=== PATIENT | male | born 1965 | race American Indian/Alaskan Native ===

== ENCOUNTER 2019-03-05 22:12 | Inpatient (IN) | payer MEDICAID ==
[2019-03-05] MEDS ORDERED: SUBLIMAZE IV ONE (22:34)
[2019-03-05] MEDS ORDERED: ZOFRAN IV ONE (22:34)
[2019-03-05] MEDS ORDERED: NITRO-BID 2% TP ONE (22:34)
--- NOTE | 2019-03-05 22:40 | Emergency Department Report ---
HPI - General Chief Complaint: Chest Pain Time Seen by Provider: 03/05/19 22:25 - HPI HPI: Room 4 The patient is a 53-year-old male presenting with chief complaint chest pain. Patient states this morning he developed pain in his left chest that feels as something sitting on him. The patient states he took a nitroglycerin and his pain resolved. The patient states he laid down and when he got up he began feeling dizzy and the chest pain returned significantly. Patient states his pain is constant and associated with shortness of breath, diaphoresis and nausea without vomiting. Patient currently uses pain score of 8/10. Patient states he had a stress test last month which was abnormal. Patient was administered aspirin 324 mg, Zofran 2 mg and one sublingual nitroglycerin by EMS prior to arrival. The patient states he ran out of his Lasix yesterday Location: Left chest Duration: [See above] Quality: [See above] Severity: [See above] Modifying factors: [see above] Context: [see above] Mode of transportation: [not driving] ED Past Medical Hx - Past Medical History Previous Medical History?: Yes Hx Hypertension: Yes Hx Heart Attack/AMI: Yes Hx Congestive Heart Failure: Yes Hx Diabetes: Yes Hx COPD: Yes Additional medical history: Neuropathy - Surgical History Past Surgical History?: Yes Hx Internal Defibrillator: Yes - Family History Family history: no significant - Social History Smoking Status: Current Some Day Smoker Substance Use Type: None (denies illicit drug use) - Medications Home Medications: Home Medications Medication Instructions Recorded Confirmed Last Taken Type Apixaban [Eliquis] 1 tab PO BID 03/05/19 03/05/19 Unknown History Clindamycin [Clindamycin CAP] 150 mg PO TID 03/05/19 03/05/19 Unknown History Lisinopril [Zestril TAB] 1 tab PO DAILY 03/05/19 03/05/19 Unknown History Torsemide [Demadex] 2 tab PO BID 03/05/19 03/05/19 Unknown History hydrALAZINE [Apresoline TAB] 1 tab PO Q8HR 03/05/19 03/05/19 Unknown History ED Review of Systems ROS: Stated complaint: CHEST PAIN Other details as noted in HPI Constitutional: diaphoresis Eyes: denies: eye pain ENT: denies: throat pain Respiratory: shortness of breath Cardiovascular: chest pain Endocrine: no symptoms reported Gastrointestinal: nausea. denies: vomiting Genitourinary: denies: dysuria Musculoskeletal: denies: back pain Neurological: denies: headache Physical Exam - Physical Exam Physical Exam: GENERAL: The patient is well-developed well-nourished male lying on stretcher appearing to be in mild discomfort. [] HEENT: Normocephalic. Atraumatic. Extraocular motions are intact. Patient has moist mucous membranes. NECK: Supple. Trachea midline CHEST/LUNGS: Clear to auscultation. There is no respiratory distress noted. HEART/CARDIOVASCULAR: Irregularly irregular. There is tachycardia. There is no gallop rub or murmur. ABDOMEN: Abdomen is soft, nontender. Patient has normal bowel sounds. There is no abdominal distention. SKIN: There is no rash. There is no edema. There is no diaphoresis. NEURO: The patient is awake, alert, and oriented. The patient is cooperative. The patient has normal speech MUSCULOSKELETAL: There is no evidence of acute injury. ED Medical Decision Making - Lab Data Result diagrams: 03/05/19 22:42 03/05/19 22:42 Laboratory Tests 03/05/19 03/05/19 03/05/19 22:42 22:42 22:42 WBC 6.2 RBC 3.99 Hgb 11.7 L Hct 35.1 L MCV 88 MCH 29 MCHC 33 RDW 20.1 H Plt Count 227 Lymph % (Auto) 20.2 Barry % (Auto) 9.3 H Eos % (Auto) 2.3 Baso % (Auto) 2.6 H Lymph # 1.2 Barry # 0.6 Eos # 0.1 Baso # 0.2 H Seg Neutrophils % 65.6 Seg Neutrophils # 4.1 PT 15.9 H INR 1.30 H APTT 26.3 D-Dimer 1869.29 H Sodium 137 Potassium 5.6 H Chloride 101.6 Carbon Dioxide 23 Anion Gap 18 BUN 34 H Creatinine 1.8 H Estimated GFR 48 BUN/Creatinine Ratio 19 Glucose 102 H Calcium 8.9 Total Creatine Kinase 80 CK-MB (CK-2) 2.2 CK-MB (CK-2) Rel Index 2.7 Troponin T 0.025 - EKG Data -: EKG Interpreted by Ma Rate: normal (99 bpm) - EKG Data When compared to previous EKG there are: previous EKG unavailable Interpretation: other (atrial fibrillation) - Radiology Data Radiology results: report reviewed (chest x-ray, VQ scan), image reviewed (chest x-ray, VQ scan) interpreted by me: Chest x-ray- no pneumothorax. Increase haziness right lung field with wedge shape density in the right lung periphery. [address] [address] XRay Report Signed Patient: ALYX HEATH MR#: [id number] : 1965 Acct:[id number] Age/Sex: 53 / M ADM Date: 03/05/19 Loc: ED Attending Dr: Ordering Physician: MOJGAN NELSON MD Date of Service: 03/05/19 Procedure(s): XR chest 1V ap Accession Number(s): [id number] cc: MOJGAN NELSON MD Fluoro Time In Minutes: CHEST 1 VIEW INDICATION: chest pain. COMPARISON: None. FINDINGS: Support devices: Cardiac lead projects in expected position. Heart: Enlarged. Lungs/Pleura: There is a small to moderate right pleural effusion with fluid tracking along the fissure. Adjacent right mid to lower lung airspace disease is nonspecific but could be due to infiltrate or atelectasis. Left lung is clear. No pneumothorax. IMPRESSION: 1. Small to moderate right pleural effusion with adjacent airspace disease, atelectasis versus infiltrate. Signer Name: Padilla Espinosa MD Signed: 03/05/2019 11:25 PM Workstation Name: [id number] Transcribed By: Dictated By: Padilla Espinosa MD Electronically Authenticated By: Padilla Espinosa MD Signed Date/Time: 03/05/192324 DD/ 23 TD/TT: [address] [address] Nuclear Medicine Report Signed Patient: ALYX HEATH MR#: [id number] : 1965 Acct:[id number] Age/Sex: 53 / M ADM Date: 03/05/19 Loc: ED Attending Dr: Ordering Physician: MOJGAN NELSON MD Date of Service: 03/06/19 Procedure(s): NM lung scan perf/vent Accession Number(s): [id number] cc: MOJGAN NELSON MD Nuclear medicine ventilation/perfusion lung scan Indication: Chest pain, shortness of breath, elevated d-dimer. Technique: 13.1 mCi of Xenon-133 were given by inhalation. 4.6 mCi of Tc 99m MAA were given by IV. Findings: Comparison with chest radiograph from earlier the same day. On the ventilation images, there is normal activity within the left lung. There is diffuse decreased radiotracer activity throughout the right lung with only a small amount of activity seen in the upper lobe. On the perfusion images, there is normal activity throughout the left lung. There is diffuse decreased activity throughout the right lung with only a small amount of ac tivity in the right upper lobe. Impression: Matched defect throughout the majority of the right mid to lower lung, there is only mild activity in the right upper lobe on perfusion and ventilation images. This corresponds with pleural- parenchymal disease on the chest radiograph. This is "triple match". This is intermediate probability for acute PTE. Signer Name: Padilla Espinosa MD Signed: 03/06/2019 1:17 AM Workstation Name: [id number] Transcribed By: [place] Dictated By: Padilla Espinosa MD Electronically Authenticated By: Padilla Espinosa MD Signed Date/Time: 03/06/19116 DD/ 2 TD/TT: - Differential Diagnosis ACS, PE, pericarditis, GERD Critical care attestation.: If time is entered above; I have spent that time in minutes in the direct care of this critically ill patient, excluding procedure time. ED Disposition Clinical Impression: Chest pain, Renal insufficiency, Hyperkalemia, Pleural effusion Disposition: OP ADMIT IP TO THIS HOSP Is pt being admited?: Yes Does the pt Need Aspirin: Yes Condition: Fair Instructions: Chest Pain (ED) Referrals: HARLAN HERCULES MD [Primary Care Provider] - 3-5 Days Time of Disposition: 01:27 (hospitalist paged (Dr. Faustina Hahn))
[2019-03-05 23:03] LABS: Basophils # (Auto) 0.2 K/mm3 (0.0-0.1); Basophils % (Auto) 2.6 % (0.0-1.8); Eosinophils # (Auto) 0.1 K/mm3 (0.0-0.4); Eosinophils % (Auto) 2.3 % (0.0-4.3); Hematocrit 35.1 % (35.5-45.6); Hemoglobin 11.7 gm/dl (11.8-15.2); Lymphocytes # (Auto) 1.2 K/mm3 (1.2-5.4); Lymphocytes % (Auto) 20.2 % (13.4-35.0); Mean Corpuscular HGB Conc 33 % (32-34); Mean Corpuscular Volume 88 fl (84-94); Monocytes # (Auto) 0.6 K/mm3 (0.0-0.8); Monocytes % (Auto) 9.3 % (0.0-7.3); Platelet Count 227 K/mm3 (140-440); Red Blood Count 3.99 M/mm3 (3.65-5.03)
[2019-03-05 23:14] LABS: INR 1.3 (0.87-1.13)
[2019-03-05 23:15] LABS: Partial Thromboplastin Time 26.3 Sec. (24.2-36.6)
[2019-03-05 23:21] LABS: Red Cell Distribution Width 20.1 % (13.2-15.2)
[2019-03-05 23:22] LABS: Creatine Kinase MB 2.2 ng/mL (0.0-4.0)
[2019-03-05 23:23] LABS: Calcium 8.9 mg/dL (8.4-10.2)
--- NOTE | 2019-03-05 23:29 | XRay Report ---
CHEST 1 VIEW INDICATION: chest pain. COMPARISON: None. FINDINGS: Support devices: Cardiac lead projects in expected position. Heart: Enlarged. Lungs/Pleura: There is a small to moderate right pleural effusion with fluid tracking along the fissu re. Adjacent right mid to lower lung airspace disease is nonspecific but could be due to infiltrate o r atelectasis. Left lung is clear. No pneumothorax. IMPRESSION: 1. Small to moderate right pleural effusion with adjacent airspace disease, atelectasis versus infilt rate. Signer Name: Padilla Espinosa MD Signed: 03/05/2019 11:25 PM Workstation Name: [id number]
[2019-03-05] MEDS ORDERED: KIONEX PO ONE (23:43)
[2019-03-05] MEDS ORDERED: CALCIUM GLUCONATE 1,000 MG in NACL 0.9% 100 ML IV ONE (23:58)
--- NOTE | 2019-03-06 01:21 | Nuclear Medicine Report ---
Nuclear medicine ventilation/perfusion lung scan Indication: Chest pain, shortness of breath, elevated d-dimer. Technique: 13.1 mCi of Xenon-133 were given by inhalation. 4.6 mCi of Tc 99m MAA were given by IV. Findings: Comparison with chest radiograph from earlier the same day. On the ventilation images, there is normal activity within the left lung. There is diffuse decreased radiotracer activity throughout the right lung with only a small amount of activity seen in the upper lobe. On the perfusion images, there is normal activity throughout the left lung. There is diffuse decrease d activity throughout the right lung with only a small amount of activity in the right upper lobe. Impression: Matched defect throughout the majority of the right mid to lower lung, there is only mild activity in the right upper lobe on perfusion and ventilation images. This corresponds with pleural-parenchymal disease on the chest radiograph. This is "triple match". This is intermediate probability for acute P TE. Signer Name: Padilla Espinosa MD Signed: 03/06/2019 1:17 AM Workstation Name: [id number]
[2019-03-06] MEDS ORDERED: ZOFRAN IV PRN (01:58)
[2019-03-06] MEDS ORDERED: TYLENOL PO PRN (01:58)
[2019-03-06] MEDS ORDERED: SODIUM CHLORIDE FLUSH SYRINGE 10 ML IV PRN (01:58)
[2019-03-06] MEDS ORDERED: D50W (25GM) Syringe IV PRN ×2 (02:00→02:07)
[2019-03-06] MEDS ORDERED: DILAUDID IV PRN (02:00)
[2019-03-06] MEDS ORDERED: NITROSTAT SL PRN (02:01)
[2019-03-06] MEDS ORDERED: LASIX IV ONE (02:22)
--- NOTE | 2019-03-06 02:22 | History and Physical Report ---
<DELLA VALLE - Last Filed: 03/06/19 03:07> History of Present Illness Date of examination: 03/06/19 Date of admission: 03/06/2019 Chief complaint: Chest pain History of present illness: 52-year-old -[place]ic male was an ongoing smoker with a history of CHF, [place] on anticoagulation with Eliquis, hypertension, diabetes, COPD, and tobacco abuse presents [facility] ED with complaints of nonradiating left-sided chest pain. States that he started experiencing left-sided chest pain yesterday morning. He took SL nitroglycerin, dsat down for me to minutes and his pain resoled. His pain returned in the afternoon. Patient states that he began feeling dizzy, had shortness of breath and diaphoresis, with exertion and nausea. He attempted to take another nitroglycerin but had no relief, so he decided to call EMS. He describes his pain as constant and sharp. He rates his pain 8/10. Patient states that he is compliant with medication, however this week he missed 2 days of Eliquis. In route to our facility patient was given nitroglycerin 1, ASA 325mg, and Zofran by EMS. At the time of my examination patient is resting comfortably in bed. According to patient he had a stress test done last month at outside facility and the results were abnormal. Patient was unable to write more details regarding stress test results. Admits: Shortness of breath, cough, nausea, diaphoresis, nonradiating left-sided chest pain Denies: Vomiting, diarrhea, fever, headache, or recent sick contact Past History Past Medical History: acute WA, COPD, diabetes (neuropathy), heart failure, hypertension Past Surgical History: Other (internal defibrillator) Social history: lives with family, smoking (current every day smoker) Family history: no significant family history Medications and Allergies Allergies Allergy/AdvReac Type Severity Reaction Status Date / Time Penicillins Allergy Itching Verified 03/05/19 22:41 strawberry Allergy Hives Verified 03/05/19 22:41 Home Medications Medication Instructions Recorded Confirmed Last Taken Type Apixaban [Eliquis] 1 tab PO BID 03/05/19 03/05/19 Unknown History Clindamycin [Clindamycin CAP] 150 mg PO TID 03/05/19 03/05/19 Unknown History Lisinopril [Zestril TAB] 1 tab PO DAILY 03/05/19 03/05/19 Unknown History Torsemide [Demadex] 2 tab PO BID 03/05/19 03/05/19 Unknown History hydrALAZINE [Apresoline TAB] 1 tab PO Q8HR 03/05/19 03/05/19 Unknown History Active Meds: Active Medications Acetaminophen (Tylenol) 650 mg PO Q4H PRN PRN Reason: Pain MILD(1-3)/Fever >100.5/TRUJILLO Albuterol (Proventil) 2.5 mg IH Q3HRT PRN PRN Reason: Shortness Of Breath Apixaban (Eliquis) mg PO BID [facility]; Protocol Aspirin (Baby Aspirin) 81 mg PO QDAY [facility] Atorvastatin Calcium (Lipitor) 40 mg PO QHS [facility] Budesonide (Pulmicort) 0.5 mg IH Q12HRT [facility] Dextrose (D50w (25gm) Syringe) 50 ml IV PRN PRN PRN Reason: Hypoglycemia Docusate Sodium (Colace) 100 mg PO BID [facility] Enoxaparin Sodium (Lovenox) 90 mg 1 mg/kg (90 mg) SUB-Q Q12HR [facility] Hydralazine HCl (Apresoline) mg PO Q8HR [facility] Hydromorphone HCl (Dilaudid) 0.5 mg IV Q3H PRN PRN Reason: Pain , Severe (7-10) Stop: 03/07/19 23:59 Sodium Chloride (Nacl 0.9% 1000 Ml) 1,000 mls @ 42 mls/hr IV DIRECT [facility] Insulin Human Lispro (Humalog) 0 unit SUB-Q ACHS [facility]; Protocol Miscellaneous Medication (Torsemide [Demadex]) 2 tab PO BID [facility] Morphine Sulfate (Morphine) 2 mg IV Q4H PRN PRN Reason: Pain, Moderate (4-6) Stop: 03/07/19 23:59 Nitroglycerin (Nitrostat) 0.4 mg SL Q5M PRN PRN Reason: Chest Pain Ondansetron HCl (Zofran) 4 mg IV Q8H PRN PRN Reason: Nausea And Vomiting Sodium Chloride (Sodium Chloride Flush Syringe 10 Ml) 10 ml IV BID [facility] Sodium Chloride (Sodium Chloride Flush Syringe 10 Ml) 10 ml IV PRN PRN PRN Reason: LINE FLUSH Review of Systems All systems: negative (reviewing no additional remarkable complaints except as noted below) Cardiovascular: chest pain Respiratory: cough Gastrointestinal: nausea Exam - Physical Exam Narrative exam: Physical exam General appearance: Present: No acute distress, drowsy but arousable, oriented 3, looks older than stated age, -I[place]ic [place]ic adult male - EENT Eyes: Present: PERRL, EOM intact ENT: hearing intact, missing teeth - Neck Neck: Present: supple, normal ROM - Respiratory Respiratory effort: Non-labored Respiratory: bilateral: diminished (bases) - Cardiovascular Heart rate:99 (bpm) Rhythm: Irregular Regular , probable right ventricular hypertrophy Heart Sounds: Present: S1 & S2. Absent: rub, click - Extremities Extremities: no ischemia, pulses intact, - Peripheral Assessment Peripheral Pulses: within normal limits - Abdominal General gastrointestinal: soft, non-tender, normal bowel sounds - Integumentary Integumentary: Present: warm, dry - Musculoskeletal Musculoskeletal: There are multiple extremities -Neurological Neurological: CN II-XII grossly intact - Psychiatric Psychiatric: cooperative - Constitutional Vitals: Temp Pulse Resp BP Pulse Ox 97.8 F 102 H 21 109/80 97 03/05/19 22:45 03/06/19 01:03 03/06/19 01:03 03/06/19 01:03 03/06/19 01:03 Results - Labs CBC & Chem 7: 03/06/19 02:19 03/06/19 02:19 Labs: Laboratory Last Values WBC 6.2 K/mm3 (4.5-11.0) 03/05/19 22:42 RBC 3.99 M/mm3 (3.65-5.03) 03/05/19 22:42 Hgb 11.7 gm/dl (11.8-15.2) L 03/05/19 22:42 Hct 35.1 % (35.5-45.6) L 03/05/19 22:42 MCV 88 fl (84-94) 03/05/19 22:42 MCH 29 pg (28-32) 03/05/19 22:42 MCHC 33 % (32-34) 03/05/19 22:42 RDW 20.1 % (13.2-15.2) H 03/05/19 22:42 Plt Count 227 K/mm3 (140-440) 03/05/19 22:42 Lymph % (Auto) 20.2 % (13.4-35.0) 03/05/19 22:42 Wharton % (Auto) 9.3 % (0.0-7.3) H 03/05/19 22:42 Eos % (Auto) 2.3 % (0.0-4.3) 03/05/19 22:42 Baso % (Auto) 2.6 % (0.0-1.8) H 03/05/19 22:42 Lymph # 1.2 K/mm3 (1.2-5.4) 03/05/19 22:42 Wharton # 0.6 K/mm3 (0.0-0.8) 03/05/19 22:42 Eos # 0.1 K/mm3 (0.0-0.4) 03/05/19 22:42 Baso # 0.2 K/mm3 (0.0-0.1) H 03/05/19 22:42 Seg Neutrophils % 65.6 % (40.0-70.0) 03/05/19 22:42 Seg Neutrophils # 4.1 K/mm3 (1.8-7.7) 03/05/19 22:42 PT 15.9 Sec. (12.2-14.9) H 03/05/19 22:42 INR 1.30 (0.87-1.13) H 03/05/19 22:42 APTT 26.3 Sec. (24.2-36.6) 03/05/19 22:42 1869.29 ng/mlDDU (0-234) H 03/05/19 22:42 Sodium 137 mmol/L (137-145) 03/05/19 22:42 Potassium 5.6 mmol/L (3.6-5.0) H 03/05/19 22:42 Chloride 101.6 mmol/L (98-107) 03/05/19 22:42 Carbon Dioxide 23 mmol/L (22-30) 03/05/19 22:42 18 mmol/L 03/05/19 22:42 BUN 34 mg/dL (9-20) H 03/05/19 22:42 1.8 mg/dL (0.8-1.5) H 03/05/19 22:42 Estimated GFR 48 ml/min 03/05/19 22:42 19 % 03/05/19 22:42 Glucose 102 mg/dL (75-100) H 03/05/19 22:42 Calcium 8.9 mg/dL (8.4-10.2) 03/05/19 22:42 80 units/L (55-170) 03/05/19 22:42 CK-MB (CK-2) 2.2 ng/mL (0.0-4.0) 03/05/19 22:42 CK-MB (CK-2) Rel Index 2.7 (0-4) 03/05/19 22:42 0.025 ng/mL (0.00-0.029) 03/05/19 22:42 - Imaging and Cardiology Chest x-ray: report reviewed (Small to moderate right pleural effusion with adjacent airspace disease, atelectasis versus infiltrate. ), image reviewed Imaging and Cardiology: V/Q Scan: Findings: Comparison with chest radiograph from earlier the same day. On the ventilation images, there is normal activity within the left lung. There is diffuse decreased radiotracer activity throughout the right lung with only a small amount of activity seen in the upper lobe. On the perfusion images, there is normal activity throughout the left lung. There is diffuse decreased activity throughout the right lung with only a small amount of activity in the right upper lobe. Impression: Matched defect throughout the majority of the right mid to lower lung, there is only mild activity in the right upper lobe on perfusion and ventilation images. This corresponds with pleural- parenchymal disease on the chest radiograph. This is "triple match". This is intermediate probability for acute PTE. Assessment and Plan Assessment and plan: 52-year-old -[place]ic male was an ongoing smoker with a history of CHF, [place] on anticoagulation with Eliquis, hypertension, diabetes, COPD, and tobacco abuse presents [facility] ED with complaints of nonradiating left-sided chest pain. Troponin negative 1, d-dimer elevated at 1869.29, VQ scan was done showing intermediate probability of PE. Patient states that he missed 2 days of Eliquis. Will resume Eliquis and consult pulmonaryCXR suggestive of moderate pleural effusion versus infiltrate. Patient denies sputum production. We will start empiric abx. Will admit to telemetry. Acute chest pain CHF History of [place] anticoagulated on Eliquis Elevated d-dimer- 1869.29 Abnormal VQ scan- intermediate probability for PE ESTEVAN ??CKD3 Hypertension Diabetes COPD ??PNA Tobacco abuse Plan: VQ scan shows intermediate probability for acute PTE; continue anticoagulation on Eliquis Cardiology consult pending Nephrology consult pending Pulmonary consult pending Monitor renal function Creatinine this admission 1.8, GFR 48; baseline creatinine unknown Monitor CBC Gentle hydration NS 42ml/hr IV Lasix 40 mg 1 dose CXR suggestive of pneumonia vs pleural effusion; will start empirically on Levaquin 500 mg every 24 hours Blood cultures pending Monitor hemoglobin, transfuse as needed Monitor BP Hold INES due to renal function Avoid nephrotoxic agents Resume home hydralazine 100 mg every 8 hours IV hydralazine when necessary POC BG HgbA1c pending SSI coverage Lipid panel pending Continue with Eliquis 5 mg twice a day Counseled for smoking cessation, refused nicotine patch DVT PPX on anticoagulated on Eliquis Advance Directives: No VTE prophylaxis?: Chemical Reason for no VTE Prophylaxis: Surgical contraindication <ELIJAH NAZRAIO - Last Filed: 03/06/19 05:00> History of Present Illness Date of admission: 03/06/19 01:58 Medications and Allergies Active Meds: Active Medications Acetaminophen (Tylenol) 650 mg PO Q4H PRN PRN Reason: Pain MILD(1-3)/Fever >100.5/TRUJILLO Albuterol (Proventil) 2.5 mg IH Q3HRT PRN PRN Reason: Shortness Of Breath Apixaban (Eliquis) 5 mg PO BID [facility]; Protocol Aspirin (Baby Aspirin) 81 mg PO QDAY [facility] Atorvastatin Calcium (Lipitor) 40 mg PO QHS [facility] Budesonide (Pulmicort) 0.5 mg IH Q12HRT [facility] Dextrose (D50w (25gm) Syringe) 50 ml IV PRN PRN PRN Reason: Hypoglycemia Docusate Sodium (Colace) 100 mg PO BID [facility] Guaifenesin (Mucinex Er) 600 mg PO BID [facility] Hydralazine HCl (Apresoline) 100 mg PO Q8HR [facility] Hydromorphone HCl (Dilaudid) 0.5 mg IV Q3H PRN PRN Reason: Pain , Severe (7-10) Stop: 03/07/19 23:59 Sodium Chloride (Nacl 0.9% 1000 Ml) 1,000 mls @ 42 mls/hr IV DIRECT [facility] Levofloxacin/Dextrose (Levaquin 750mg/150ml) 750 mg in 150 mls @ 150 mls/hr IV Q24HR [facility]; Protocol Insulin Human Lispro (Humalog) 0 unit SUB-Q ACHS [facility]; Protocol Morphine Sulfate (Morphine) 2 mg IV Q4H PRN PRN Reason: Pain, Moderate (4-6) Stop: 03/07/19 23:59 Nitroglycerin (Nitrostat) 0.4 mg SL Q5M PRN PRN Reason: Chest Pain Ondansetron HCl (Zofran) 4 mg IV Q8H PRN PRN Reason: Nausea And Vomiting Sodium Chloride (Sodium Chloride Flush Syringe 10 Ml) 10 ml IV BID [facility] Sodium Chloride (Sodium Chloride Flush Syringe 10 Ml) 10 ml IV PRN PRN PRN Reason: LINE FLUSH Torsemide (Demadex) 40 mg PO BID@0600,1800 [facility] Exam - Constitutional Vitals: Temp Pulse Resp BP Pulse Ox 98.0 F 85 22 123/98 95 03/06/19 04:44 03/06/19 04:36 03/06/19 04:36 03/06/19 04:36 03/06/19 04:36 Results - Labs CBC & Chem 7: 03/06/19 02:19 03/06/19 02:19 Labs: Laboratory Last Values WBC 5.3 K/mm3 (4.5-11.0) 03/06/19 02:19 RBC 4.17 M/mm3 (3.65-5.03) 03/06/19 02:19 Hgb 11.9 gm/dl (11.8-15.2) 03/06/19 02:19 Hct 37.0 % (35.5-45.6) 03/06/19 02:19 MCV 89 fl (84-94) 03/06/19 02:19 MCH 29 pg (28-32) 03/06/19 02:19 MCHC 32 % (32-34) 03/06/19 02:19 RDW 20.1 % (13.2-15.2) H 03/06/19 02:19 Plt Count 201 K/mm3 (140-440) 03/06/19 02:19 Lymph % (Auto) 21.7 % (13.4-35.0) 03/06/19 02:19 Wharton % (Auto) 10.1 % (0.0-7.3) H 03/06/19 02:19 Eos % (Auto) 2.6 % (0.0-4.3) 03/06/19 02:19 Baso % (Auto) 1.3 % (0.0-1.8) 03/06/19 02:19 Lymph # 1.1 K/mm3 (1.2-5.4) L 03/06/19 02:19 Wharton # 0.5 K/mm3 (0.0-0.8) 03/06/19 02:19 Eos # 0.1 K/mm3 (0.0-0.4) 03/06/19 02:19 Baso # 0.1 K/mm3 (0.0-0.1) 03/06/19 02:19 Seg Neutrophils % 64.3 % (40.0-70.0) 03/06/19 02:19 Seg Neutrophils # 3.4 K/mm3 (1.8-7.7) 03/06/19 02:19 PT 15.9 Sec. (12.2-14.9) H 03/05/19 22:42 INR 1.30 (0.87-1.13) H 03/05/19 22:42 APTT 26.3 Sec. (24.2-36.6) 03/05/19 22:42 1869.29 ng/mlDDU (0-234) H 03/05/19 22:42 Sodium 138 mmol/L (137-145) 03/06/19 02:19 Potassium 3.5 mmol/L (3.6-5.0) L D 03/06/19 02:19 Chloride 100.5 mmol/L (98-107) 03/06/19 02:19 Carbon Dioxide 23 mmol/L (22-30) 03/06/19 02:19 18 mmol/L 03/06/19 02:19 BUN 36 mg/dL (9-20) H 03/06/19 02:19 1.9 mg/dL (0.8-1.5) H 03/06/19 02:19 Estimated GFR 45 ml/min 03/06/19 02:19 19 % 03/06/19 02:19 Glucose 92 mg/dL (75-100) 03/06/19 02:19 5.6 % (4-6) 03/06/19 02:19 Calcium 9.2 mg/dL (8.4-10.2) 03/06/19 02:19 80 units/L (55-170) 03/05/19 22:42 CK-MB (CK-2) 2.2 ng/mL (0.0-4.0) 03/05/19 22:42 CK-MB (CK-2) Rel Index 2.7 (0-4) 03/05/19 22:42 0.025 ng/mL (0.00-0.029) 03/05/19 22:42 Assessment and Plan Assessment and plan: 53-year-old man with a history of coronary artery disease, CHF, hypertension, diabetes, COPD, ?CKD complains of left-sided chest pain which she describes a sharp pain, intermittent for 2 hours. He was seen at [facility] last month, treated for CHF, and evaluated for chest pain, stress test done at that time he does not know the results, however no intervention was done. VQ scan shows intermediate probability for PE, missed doses of his eliquis. Restart eliquis, d/c full dose lovenox. Agree with plan as stated above. Patient seen and examined, d/w [employer] HELPER
[2019-03-06 02:28] LABS: Basophils # (Auto) 0.1 K/mm3 (0.0-0.1); Basophils % (Auto) 1.3 % (0.0-1.8); Eosinophils # (Auto) 0.1 K/mm3 (0.0-0.4); Eosinophils % (Auto) 2.6 % (0.0-4.3); Hemoglobin 11.9 gm/dl (11.8-15.2); Lymphocytes # (Auto) 1.1 K/mm3 (1.2-5.4); Lymphocytes % (Auto) 21.7 % (13.4-35.0); Mean Corpuscular HGB Conc 32 % (32-34); Mean Corpuscular Volume 89 fl (84-94); Monocytes # (Auto) 0.5 K/mm3 (0.0-0.8); Monocytes % (Auto) 10.1 % (0.0-7.3); Platelet Count 201 K/mm3 (140-440); Red Blood Count 4.17 M/mm3 (3.65-5.03)
[2019-03-06 02:32] LABS: Red Cell Distribution Width 20.1 % (13.2-15.2)
[2019-03-06 02:47] LABS: Calcium 9.2 mg/dL (8.4-10.2)
[2019-03-06] MEDS ORDERED: LOVENOX SUB-Q SCH (03:00)
[2019-03-06] MEDS: MORPHINE IV PRN ×4 (05:14→20:12)
[2019-03-06] MEDS: DEMADEX PO SCH ×2 (05:14→19:14)
[2019-03-06] MEDS: APRESOLINE PO SCH ×3 (05:15→21:09)
[2019-03-06 06:30] LABS: Chol/HDL Ratio 5.19 %
[2019-03-06] MEDS: HumaLOG SUB-Q SCH ×4 (07:30→22:33)
[2019-03-06] MEDS: PROVENTIL IH PRN (08:22)
[2019-03-06] MEDS: PULMICORT IH SCH ×2 (08:22→20:45)
[2019-03-06] MEDS: ELIQUIS PO SCH ×2 (09:33→21:09)
[2019-03-06] MEDS: LEVAQUIN 750MG/150ML 750 MG/150 ML BAG IV SCH (09:33)
[2019-03-06] MEDS: COLACE PO SCH ×2 (09:33→21:06)
[2019-03-06] MEDS: MUCINEX ER PO SCH ×2 (09:33→21:08)
[2019-03-06] MEDS: SODIUM CHLORIDE FLUSH SYRINGE 10 ML IV SCH (09:34)
--- NOTE | 2019-03-06 09:52 | Consultation ---
History of Present Illness - History of Present Illness Thank you for the consultation patient was evaluated today Source of information: History of presenting illness: Patient is a 53-year-old male who has been admitted here with creatinine of around 1.8 with chest pain indeterminate VQ scan currently undergoing workup. He has multiple risk factors for underlying chronic kidney disease including hypertension diabetes congestive heart failure chronic tobacco abuse, poor dietary lifestyle, He was also noted to be mildly hyperkalemic potassium was 5.7 which is currently improved, patient was taking torsemide as well as INES inhibitor in the outpatient setting in addition to several other medication Past medical history significant for Hypertension Myocardial infarction congestive heart failure Diabetes COPD Neuropathy Defibrillator placement Ongoing chronic tobacco abuse Current allergies: Reviewed penicillin and strawberry Home medication present medication: Reviewed Social history: Reviewed Family history: Reviewed Review of system positive for chest pain, dizziness, denies having any urinary symptoms All other review of system negative Physical examination: Vitals: Reviewed HEENT: Normocephalic/atraumatic skull no pallor or icterus no uremic order oral mucosa moist Neck: Supple without any thyromegaly noted or mass JVD Chest: Clear to auscultation anteriorly no crackles rales or wheezes Heart: Regular rate and rhythm S1 and S2 heard no S3-S4 no pericardial rub Abdomen: Soft nontender no organomegaly no masses no suprapubic fullness no CVA tenderness no renal bruit Extremity: Dry skin, peripheral pulses palpable no cyanosis skin hygiene and poor, Endocrine: Thyroid not enlarged Psych: No evidence of vegetation aggression or behavioral issues noted Jair: Dry skin no petechial skin rashes Back: Nontender thoracolumbar spine Neurological: Alert awake follows commands, grossly nonfocal examination Labs and x-rays: Reviewed from this admission Assessment and plan: Renal failure with hyperkalemia potassium upon admission was 5.6 was is currently 3.5 creatinine upon admission was 1.8 which is currently 1.9, there is no old labs and our current system. Patient had been admitted here with left- sided chest pain, she is currently undergoing workup for chest pain as he was al so feeling dizzy. Patient may have underlying chronic kidney disease Patient has multiple risk factors for underlying chronic kidney disease and is also at risk for progression advised to make an appointment for follow-up in the office upon discharge Patient is high risk for radiocontrast nephropathy, discussed with patient at length Would like to know his baseline creatinine, patient was taking lisinopril and torsemide which can also affect his renal function Blood pressure appears to be adequately controlled Hyperkalemia likely due to medication, needs monitoring and follow-up D-dimer noted to be significantly elevated patient also noted to be anemic during this admission borderline hemoglobin 11.7 platelet count normal Ventilation/perfusion scan: Indeterminate Will order for a 24-hour urine for protein creatinine clearance Had a detailed discussion with patient about the renal care plan all the renal related questions were answered, will order the necessary lab testing as well as imaging as required during this admission. Pertinent lab studies as well as imaging were also discussed with patient. From renal standpoint prognosis appears to be guarded at this time. We'll continue to follow and make recommendation from renal standpoint Please feel free to call me at [phone] if you have any questions in regards to this patient's care Thank you for the consultation. Past History Past Medical History: acute [place], COPD, diabetes (neuropathy), heart failure, hypertension Past Surgical History: Other (internal defibrillator) Social history: lives with family, smoking (current every day smoker) Family history: no significant family history Medications and Allergies Allergies Allergy/AdvReac Type Severity Reaction Status Date / Time Penicillins Allergy Itching Verified 03/05/19 22:41 strawberry Allergy Hives Verified 03/05/19 22:41 Home Medications Medication Instructions Recorded Confirmed Last Taken Type Apixaban [Eliquis] 1 tab PO BID 03/05/19 03/05/19 Unknown History Clindamycin [Clindamycin CAP] 150 mg PO TID 03/05/19 03/05/19 Unknown History Lisinopril [Zestril TAB] 1 tab PO DAILY 03/05/19 03/05/19 Unknown History Torsemide [Demadex] 2 tab PO BID 03/05/19 03/05/19 Unknown History hydrALAZINE [Apresoline TAB] 1 tab PO Q8HR 03/05/19 03/05/19 Unknown History Active Meds: Active Medications Acetaminophen (Tylenol) 650 mg PO Q4H PRN PRN Reason: Pain MILD(1-3)/Fever >100.5/TRUJILLO Albuterol (Proventil) 2.5 mg IH Q3HRT PRN PRN Reason: Shortness Of Breath Last Admin: 03/06/19 08:22 Dose: 2.5 mg Documented by: Apixaban (Eliquis) 5 mg PO BID [facility]; Protocol Last Admin: 03/06/19 09:33 Dose: 5 mg Documented by: Aspirin (Baby Aspirin) 81 mg PO QDAY [facility] Atorvastatin Calcium (Lipitor) 40 mg PO QHS [facility] Budesonide (Pulmicort) 0.5 mg IH Q12HRT [facility] Last Admin: 03/06/19 08:22 Dose: 0.5 mg Documented by: Dextrose (D50w (25gm) Syringe) 50 ml IV PRN PRN PRN Reason: Hypoglycemia Docusate Sodium (Colace) 100 mg PO BID [facility] Last Admin: 03/06/19 09:33 Dose: 100 mg Documented by: Guaifenesin (Mucinex Er) 600 mg PO BID [facility] Last Admin: 03/06/19 09:33 Dose: 600 mg Documented by: Hydralazine HCl (Apresoline) 100 mg PO Q8HR [facility] Last Admin: 03/06/19 05:15 Dose: 100 mg Documented by: Hydromorphone HCl (Dilaudid) 0.5 mg IV Q3H PRN PRN Reason: Pain , Severe (7-10) Stop: 03/07/19 23:59 Sodium Chloride (Nacl 0.9% 1000 Ml) 1,000 mls @ 42 mls/hr IV DIRECT [facility] Levofloxacin/Dextrose (Levaquin 750mg/150ml) 750 mg in 150 mls @ 150 mls/hr IV Q24HR [facility]; Protocol Last Admin: 03/06/19 09:33 Dose: 150 mls/hr Documented by: Insulin Human Lispro (Humalog) 0 unit SUB-Q ACHS [facility]; Protocol Last Admin: 03/06/19 07:30 Dose: Not Given Documented by: Morphine Sulfate (Morphine) 2 mg IV Q4H PRN PRN Reason: Pain, Moderate (4-6) Stop: 03/07/19 23:59 Last Admin: 03/06/19 09:34 Dose: 2 mg Documented by: Nitroglycerin (Nitrostat) 0.4 mg SL Q5M PRN PRN Reason: Chest Pain Ondansetron HCl (Zofran) 4 mg IV Q8H PRN PRN Reason: Nausea And Vomiting Sodium Chloride (Sodium Chloride Flush Syringe 10 Ml) 10 ml IV BID [facility] Last Admin: 03/06/19 09:34 Dose: 10 ml Documented by: Sodium Chloride (Sodium Chloride Flush Syringe 10 Ml) 10 ml IV PRN PRN PRN Reason: LINE FLUSH Torsemide (Demadex) 40 mg PO BID@0600,1800 [facility] Last Admin: 03/06/19 05:14 Dose: 40 mg Documented by: Exam - Vital Signs Vital signs: Vital Signs Temp Pulse Resp BP Pulse Ox 97.8 F 99 H 22 124/91 99 03/05/19 22:45 03/05/19 22:45 03/05/19 22:45 03/05/19 22:45 03/05/19 22:45 Results - Lab Results 03/06/19 02:19 03/06/19 02:19 Most recent lab results Calcium 9.2 mg/dL (8.4-10.2) 03/06/19 02:19
[2019-03-06] MEDS ORDERED: TORSEMIDE PO SCH (10:00)
[2019-03-06] MEDS ORDERED: LEVAQUIN 500MG/100ML 500 MG/100 ML BAG IV SCH (10:00)
--- NOTE | 2019-03-06 10:20 | Consultation ---
History of Present Illness Consult date: 03/06/19 Consult reason: chest pain, congestive heart failure, shortness of breath History of present illness: 52-year-old -[place] male who recently moved from [place] to [place] initially had been going to [facility] and has now moved to [facility] presents with left precordial chest pain at rest. This was associated with shortness of breath but no diaphoresis. Past History Past Medical History: acute [place], COPD, diabetes (neuropathy), heart failure, hypertension Past Surgical History: Other (internal defibrillator) Social history: lives with family, smoking (current every day smoker) Family history: no significant family history Medications and Allergies Allergies Allergy/AdvReac Type Severity Reaction Status Date / Time Penicillins Allergy Itching Verified 03/05/19 22:41 strawberry Allergy Hives Verified 03/05/19 22:41 Home Medications Medication Instructions Recorded Confirmed Last Taken Type Apixaban [Eliquis] 1 tab PO BID 03/05/19 03/05/19 Unknown History Clindamycin [Clindamycin CAP] 150 mg PO TID 03/05/19 03/05/19 Unknown History Lisinopril [Zestril TAB] 1 tab PO DAILY 03/05/19 03/05/19 Unknown History Torsemide [Demadex] 2 tab PO BID 03/05/19 03/05/19 Unknown History hydrALAZINE [Apresoline TAB] 1 tab PO Q8HR 03/05/19 03/05/19 Unknown History Active Meds: Active Medications Acetaminophen (Tylenol) 650 mg PO Q4H PRN PRN Reason: Pain MILD(1-3)/Fever >100.5/TRUJILLO Albuterol (Proventil) 2.5 mg IH Q3HRT PRN PRN Reason: Shortness Of Breath Last Admin: 03/06/19 08:22 Dose: 2.5 mg Documented by: Apixaban (Eliquis) 5 mg PO BID [facility]; Protocol Last Admin: 03/06/19 09:33 Dose: 5 mg Documented by: Aspirin (Baby Aspirin) 81 mg PO QDAY [facility] Atorvastatin Calcium (Lipitor) 40 mg PO QHS [facility] Budesonide (Pulmicort) 0.5 mg IH Q12HRT [facility] Last Admin: 03/06/19 08:22 Dose: 0.5 mg Documented by: Dextrose (D50w (25gm) Syringe) 50 ml IV PRN PRN PRN Reason: Hypoglycemia Docusate Sodium (Colace) 100 mg PO BID [facility] Last Admin: 03/06/19 09:33 Dose: 100 mg Documented by: Guaifenesin (Mucinex Er) 600 mg PO BID [facility] Last Admin: 03/06/19 09:33 Dose: 600 mg Documented by: Hydralazine HCl (Apresoline) 100 mg PO Q8HR [facility] Last Admin: 03/06/19 05:15 Dose: 100 mg Documented by: Hydromorphone HCl (Dilaudid) 0.5 mg IV Q3H PRN PRN Reason: Pain , Severe (7-10) Stop: 03/07/19 23:59 Sodium Chloride (Nacl 0.9% 1000 Ml) 1,000 mls @ 42 mls/hr IV DIRECT [facility] Levofloxacin/Dextrose (Levaquin 750mg/150ml) 750 mg in 150 mls @ 150 mls/hr IV Q24HR [facility]; Protocol Last Admin: 03/06/19 09:33 Dose: 150 mls/hr Documented by: Insulin Human Lispro (Humalog) 0 unit SUB-Q ACHS [facility]; Protocol Last Admin: 03/06/19 07:30 Dose: Not Given Documented by: Morphine Sulfate (Morphine) 2 mg IV Q4H PRN PRN Reason: Pain, Moderate (4-6) Stop: 03/07/19 23:59 Last Admin: 03/06/19 09:34 Dose: 2 mg Documented by: Nitroglycerin (Nitrostat) 0.4 mg SL Q5M PRN PRN Reason: Chest Pain Ondansetron HCl (Zofran) 4 mg IV Q8H PRN PRN Reason: Nausea And Vomiting Sodium Chloride (Sodium Chloride Flush Syringe 10 Ml) 10 ml IV BID [facility] Last Admin: 03/06/19 09:34 Dose: 10 ml Documented by: Sodium Chloride (Sodium Chloride Flush Syringe 10 Ml) 10 ml IV PRN PRN PRN Reason: LINE FLUSH Torsemide (Demadex) 40 mg PO BID@0600,1800 [facility] Last Admin: 03/06/19 05:14 Dose: 40 mg Documented by: Review of Systems Constitutional: fatigue, weakness Ears, nose, mouth and throat: no deferred, no ear pain, no epistaxis, no bleeding gums Cardiovascular: chest pain, orthopnea, shortness of breath Respiratory: shortness of breath, congestion Gastrointestinal: no abdominal pain, no nausea, no vomiting, no diarrhea Genitourinary Male: no dysuria, no hematuria, no urinary frequency, no urinary hesitancy Musculoskeletal: no neck stiffness, no neck pain Integumentary: rash, pruritis, redness Endocrine: no cold intolerance, no heat intolerance, no polyphagia, no polyuria, no nocturia Hematologic/Lymphatic: no easy bruising, no easy bleeding Allergic/Immunologic: no urticaria, no allergic rhinitis Physical Examination Vital Signs Temp Pulse Resp BP Pulse Ox 97.8 F 99 H 22 124/91 99 03/05/19 22:45 03/05/19 22:45 03/05/19 22:45 03/05/19 22:45 03/05/19 22:45 Results 03/06/19 02:19 03/06/19 02:19 Cardiac Enzymes 03/05/19 Range/Units 22:42 CK-MB (CK-2) 2.2 (0.0-4.0) ng/mL Coagulation 03/05/19 Range/Units 22:42 PT 15.9 H (12.2-14.9) Sec. INR 1.30 H (0.87-1.13) APTT 26.3 (24.2-36.6) Sec. Lipids 03/06/19 Range/Units 05:56 Triglycerides 82 (2-149) mg/dL Cholesterol 135 (50-199) mg/dL HDL Cholesterol 26 L (40-59) mg/dL Cholesterol/HDL Ratio 5.19 % CBC 03/05/19 03/06/19 Range/Units 22:42 02:19 WBC 6.2 5.3 (4.5-11.0) K/mm3 RBC 3.99 4.17 (3.65-5.03) M/mm3 Hgb 11.7 L 11.9 (11.8-15.2) gm/dl Hct 35.1 L 37.0 (35.5-45.6) % Plt Count 227 201 (140-440) K/mm3 Lymph # 1.2 1.1 L (1.2-5.4) K/mm3 [place] # 0.6 0.5 (0.0-0.8) K/mm3 Eos # 0.1 0.1 (0.0-0.4) K/mm3 Baso # 0.2 H 0.1 (0.0-0.1) K/mm3 Comprehensive Metabolic Panel 03/05/19 03/06/19 Range/Units 22:42 02:19 Sodium 137 138 (137-145) mmol/L Potassium 5.6 H 3.5 L D (3.6-5.0) mmol/L Chloride 101.6 100.5 (98-107) mmol/L Carbon Dioxide 23 23 (22-30) mmol/L BUN 34 H 36 H (9-20) mg/dL Creatinine 1.8 H 1.9 H (0.8-1.5) mg/dL Glucose 102 H 92 (75-100) mg/dL Calcium 8.9 9.2 (8.4-10.2) mg/dL EKG interpretations - Telemetry EKG Rhythm: Sinus Rhythm Assessment and Plan 1. 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 Chronic atrial fibrillation 3. Dilated ischemic cardiomyopathy 4. Essential hypertension 5. Type 2 diabetes mellitus 6. Chronic obstructive pulmonary disease 7. Presence of the ICD Plan Patient to be started on Nitropaste for pre-and afterload reduction patient have diuresis. Echocardiogram to be done to assess global and regional function obtain records from [facility] regarding recent cardiac workup.
[2019-03-06] MEDS: NACL 0.9% 1000 ML 1,000 ML IV SCH (11:04)
--- NOTE | 2019-03-06 11:21 | Consultation ---
History of Present Illness Reason for consult: dyspnea History of present illness: Pt w hx of tobaaco abuse abmitted w sob Past History Past Medical History: acute [place], COPD, diabetes (neuropathy), heart failure, hypertension Past Surgical History: Other (internal defibrillator) Social history: lives with family, smoking (current every day smoker) Family history: no significant family history Medications and Allergies Allergies Allergy/AdvReac Type Severity Reaction Status Date / Time Penicillins Allergy Itching Verified 03/05/19 22:41 strawberry Allergy Hives Verified 03/05/19 22:41 Home Medications Medication Instructions Recorded Confirmed Last Taken Type Apixaban [Eliquis] 1 tab PO BID 03/05/19 03/05/19 Unknown History Clindamycin [Clindamycin CAP] 150 mg PO TID 03/05/19 03/05/19 Unknown History Lisinopril [Zestril TAB] 1 tab PO DAILY 03/05/19 03/05/19 Unknown History Torsemide [Demadex] 2 tab PO BID 03/05/19 03/05/19 Unknown History hydrALAZINE [Apresoline TAB] 1 tab PO Q8HR 03/05/19 03/05/19 Unknown History Active Meds: Active Medications Acetaminophen (Tylenol) 650 mg PO Q4H PRN PRN Reason: Pain MILD(1-3)/Fever >100.5/TRUJILLO Albuterol (Proventil) 2.5 mg IH Q3HRT PRN PRN Reason: Shortness Of Breath Last Admin: 03/06/19 08:22 Dose: 2.5 mg Documented by: Apixaban (Eliquis) 5 mg PO BID [facility]; Protocol Last Admin: 03/06/19 09:33 Dose: 5 mg Documented by: Aspirin (Baby Aspirin) 81 mg PO QDAY [facility] Atorvastatin Calcium (Lipitor) 40 mg PO QHS [facility] Budesonide (Pulmicort) 0.5 mg IH Q12HRT [facility] Last Admin: 03/06/19 08:22 Dose: 0.5 mg Documented by: Dextrose (D50w (25gm) Syringe) 50 ml IV PRN PRN PRN Reason: Hypoglycemia Docusate Sodium (Colace) 100 mg PO BID [facility] Last Admin: 03/06/19 09:33 Dose: 100 mg Documented by: Guaifenesin (Mucinex Er) 600 mg PO BID [facility] Last Admin: 03/06/19 09:33 Dose: 600 mg Documented by: Hydralazine HCl (Apresoline) 100 mg PO Q8HR [facility] Last Admin: 03/06/19 05:15 Dose: 100 mg Documented by: Hydromorphone HCl (Dilaudid) 0.5 mg IV Q3H PRN PRN Reason: Pain , Severe (7-10) Stop: 03/07/19 23:59 Sodium Chloride (Nacl 0.9% 1000 Ml) 1,000 mls @ 42 mls/hr IV DIRECT [facility] Last Admin: 03/06/19 11:04 Dose: 42 mls/hr Documented by: Levofloxacin/Dextrose (Levaquin 750mg/150ml) 750 mg in 150 mls @ 150 mls/hr IV Q24HR [facility]; Protocol Last Admin: 03/06/19 09:33 Dose: 150 mls/hr Documented by: Insulin Human Lispro (Humalog) 0 unit SUB-Q ACHS [facility]; Protocol Last Admin: 03/06/19 07:30 Dose: Not Given Documented by: Morphine Sulfate (Morphine) 2 mg IV Q4H PRN PRN Reason: Pain, Moderate (4-6) Stop: 03/07/19 23:59 Last Admin: 03/06/19 09:34 Dose: 2 mg Documented by: Nitroglycerin (Nitrostat) 0.4 mg SL Q5M PRN PRN Reason: Chest Pain Ondansetron HCl (Zofran) 4 mg IV Q8H PRN PRN Reason: Nausea And Vomiting Sodium Chloride (Sodium Chloride Flush Syringe 10 Ml) 10 ml IV BID [facility] Last Admin: 03/06/19 09:34 Dose: 10 ml Documented by: Sodium Chloride (Sodium Chloride Flush Syringe 10 Ml) 10 ml IV PRN PRN PRN Reason: LINE FLUSH Torsemide (Demadex) 40 mg PO BID@0600,1800 [facility] Last Admin: 03/06/19 05:14 Dose: 40 mg Documented by: Physical Examination Vital signs: Vital Signs Temp Pulse Resp BP Pulse Ox 97.8 F 99 H 22 124/91 99 03/05/19 22:45 03/05/19 22:45 03/05/19 22:45 03/05/19 22:45 03/05/19 22:45 Results - Laboratory Findings CBC and BMP: 03/06/19 02:19 03/06/19 02:19 PT/INR, D-dimer PT 15.9 Sec. (12.2-14.9) H 03/05/19 22:42 INR 1.30 (0.87-1.13) H 03/05/19 22:42 1869.29 ng/mlDDU (0-234) H 03/05/19 22:42 Abnormal lab findings: Abnormal Labs 03/05/19 03/05/19 03/05/19 22:42 22:42 22:42 Hgb 11.7 L Hct 35.1 L RDW 20.1 H [place] % (Auto) 9.3 H Baso % (Auto) 2.6 H Lymph # Baso # 0.2 H PT 15.9 H INR 1.30 H D-Dimer 1869.29 H Potassium 5.6 H BUN 34 H Creatinine 1.8 H Glucose 102 H Uric Acid HDL Cholesterol 03/06/19 03/06/19 03/06/19 02:19 02:19 05:56 Hgb Hct RDW 20.1 H [place] % (Auto) 10.1 H Baso % (Auto) Lymph # 1.1 L Baso # PT INR D-Dimer Potassium 3.5 L D BUN 36 H Creatinine 1.9 H Glucose Uric Acid HDL Cholesterol 26 L 03/06/19 09:55 Hgb Hct RDW [place] % (Auto) Baso % (Auto) Lymph # Baso # PT INR D-Dimer Potassium BUN Creatinine Glucose Uric Acid 15.2 H HDL Cholesterol - Diagnostic Findings Chest x-ray: report reviewed, image reviewed Assessment and Plan - Patient Problems (1) Pneumonia Current Visit: Yes Status: Acute (2) Pleural effusion Current Visit: Yes Status: Acute (3) Renal insufficiency Current Visit: Yes Status: Acute
--- NOTE | 2019-03-06 11:39 | Progress Note ---
Assessment and Plan Assessment and plan: --Atypical chest pain; rule out acute coronary syndrome Procedures cardiac enzymes, EKG, echocardiogram Cardiology follow, possible stress test to rule out ischemia --Acute exacerbation of chronic combined systolic and diastolic heart failure Anticipated medications, input output monitoring, low sodium diet, fluid restriction Follow echocardiogram and left ventricular function -- Dilated ischemic cardiomyopathy Anti-failure medications --Intermediate probability for acute PE on VQ scan; Patient is already on Eliquis, supportive care --Chronic atrial fibrillation; rate controlled Beta blockers, chronic anticoagulation, supportive care --Acute kidney injury; vasomotor nephropathy Avoid nephrotoxins, nephrology evaluation if needed --Essential hypertension; Continue antihypertensives, when necessary hydralazine -- Type 2 diabetes mellitus; Accu-Chek sliding scale coverage and ADA diet as needed --Chronic obstructive pulmonary disease Oxygen titrated to O2 sats more than 90%, nebulizers as needed -- Presence of the ICD; stable cardiology following --DVT Prophylaxis: on Eliquis History Interval history: Patient seen and examined medical records reviewed Admitted left-sided chest pain and worsening shortness of breath Patient continues to have intermittent chest pain With mild shortness of breath Cardiology evaluated the patient Alert awake oriented Vital signs noted Hospitalist Physical - Constitutional Vitals: Temp Pulse Resp BP Pulse Ox 98.0 F 70 20 123/98 94 03/06/19 04:44 03/06/19 08:22 03/06/19 09:34 03/06/19 04:36 03/06/19 08:22 General appearance: Present: no acute distress, well-nourished - EENT Eyes: Present: PERRL, EOM intact - Neck Neck: Present: supple, normal ROM - Respiratory Respiratory effort: normal Respiratory: bilateral: diminished, negative: rales, rhonchi, wheezing - Cardiovascular Rhythm: regular Heart Sounds: Present: S1 & S2 - Extremities Extremities: no ischemia, No edema - Abdominal General gastrointestinal: soft, non-tender, non-distended, normal bowel sounds - Integumentary Integumentary: Present: clear, warm - Psychiatric Psychiatric: appropriate mood/affect, cooperative - Neurologic Neurologic: moves all extremities Results - Labs CBC & Chem 7: 03/06/19 02:19 03/06/19 02:19 Labs: Laboratory Last Values WBC 5.3 K/mm3 (4.5-11.0) 03/06/19 02:19 RBC 4.17 M/mm3 (3.65-5.03) 03/06/19 02:19 Hgb 11.9 gm/dl (11.8-15.2) 03/06/19 02:19 Hct 37.0 % (35.5-45.6) 03/06/19 02:19 MCV 89 fl (84-94) 03/06/19 02:19 MCH 29 pg (28-32) 03/06/19 02:19 MCHC 32 % (32-34) 03/06/19 02:19 RDW 20.1 % (13.2-15.2) H 03/06/19 02:19 Plt Count 201 K/mm3 (140-440) 03/06/19 02:19 Lymph % (Auto) 21.7 % (13.4-35.0) 03/06/19 02:19 [place] % (Auto) 10.1 % (0.0-7.3) H 03/06/19 02:19 Eos % (Auto) 2.6 % (0.0-4.3) 03/06/19 02:19 Baso % (Auto) 1.3 % (0.0-1.8) 03/06/19 02:19 Lymph # 1.1 K/mm3 (1.2-5.4) L 03/06/19 02:19 [place] # 0.5 K/mm3 (0.0-0.8) 03/06/19 02:19 Eos # 0.1 K/mm3 (0.0-0.4) 03/06/19 02:19 Baso # 0.1 K/mm3 (0.0-0.1) 03/06/19 02:19 Seg Neutrophils % 64.3 % (40.0-70.0) 03/06/19 02:19 Seg Neutrophils # 3.4 K/mm3 (1.8-7.7) 03/06/19 02:19 PT 15.9 Sec. (12.2-14.9) H 03/05/19 22:42 INR 1.30 (0.87-1.13) H 03/05/19 22:42 APTT 26.3 Sec. (24.2-36.6) 03/05/19 22:42 1869.29 ng/mlDDU (0-234) H 03/05/19 22:42 Sodium 138 mmol/L (137-145) 03/06/19 02:19 Potassium 3.5 mmol/L (3.6-5.0) L D 03/06/19 02:19 Chloride 100.5 mmol/L (98-107) 03/06/19 02:19 Carbon Dioxide 23 mmol/L (22-30) 03/06/19 02:19 18 mmol/L 03/06/19 02:19 BUN 36 mg/dL (9-20) H 03/06/19 02:19 1.9 mg/dL (0.8-1.5) H 03/06/19 02:19 Estimated GFR 45 ml/min 03/06/19 02:19 19 % 03/06/19 02:19 Glucose 92 mg/dL (75-100) 03/06/19 02:19 POC Glucose 92 (70-105) 03/06/19 08:17 5.6 % (4-6) 03/06/19 02:19 308 Mosm/kg 03/06/19 09:55 15.2 mg/dL (3.5-7.6) H 03/06/19 09:55 Calcium 9.2 mg/dL (8.4-10.2) 03/06/19 02:19 80 units/L (55-170) 03/05/19 22:42 CK-MB (CK-2) 2.2 ng/mL (0.0-4.0) 03/05/19 22:42 CK-MB (CK-2) Rel Index 2.7 (0-4) 03/05/19 22:42 0.019 ng/mL (0.00-0.029) 03/06/19 05:56 Triglycerides 82 mg/dL (2-149) 03/06/19 05:56 Cholesterol 135 mg/dL (50-199) 03/06/19 05:56 97 mg/dL (50-130) 03/06/19 05:56 26 mg/dL (40-59) L 03/06/19 05:56 5.19 % 03/06/19 05:56 Active Medications - Current Medications Current Medications: Generic Name Dose Route Start Last Admin Trade Name Eliotq PRN Reason Stop Dose Admin Acetaminophen 650 mg 03/06/19 01:58 Tylenol PO Q4H PRN Pain MILD(1-3)/Fever >100.5/TRUJILLO Albuterol 2.5 mg 03/06/19 01:58 03/06/19 08:22 Proventil IH 2.5 mg Q3HRT PRN Administration Shortness Of Breath Apixaban 5 mg 03/06/19 10:00 03/06/19 09:33 Eliquis PO 5 mg BID SOUMYA Administration Protocol Aspirin 81 mg 03/07/19 10:00 Baby Aspirin PO QDAY SOUMYA Atorvastatin Calcium 40 mg 03/06/19 22:00 Lipitor PO QHS SOUMYA Budesonide 0.5 mg 03/06/19 08:00 03/06/19 08:22 Pulmicort IH 0.5 mg Q12HRT SOUMYA Administration Dextrose 50 ml 03/06/19 02:00 D50w (25gm) Syringe IV PRN PRN Hypoglycemia Docusate Sodium 100 mg 03/06/19 10:00 03/06/19 09:33 Colace PO 100 mg BID SOUMYA Administration Guaifenesin 600 mg 03/06/19 10:00 03/06/19 09:33 Mucinex Er PO 600 mg BID SOUMYA Administration Hydralazine HCl 100 mg 03/06/19 06:00 03/06/19 05:15 Apresoline PO 100 mg Q8HR SOUMYA Administration Hydromorphone HCl 0.5 mg 03/06/19 02:00 Dilaudid IV 03/07/19 23:59 Q3H PRN Pain , Severe (7-10) Sodium Chloride 1,000 mls @ 42 mls/hr 03/06/19 02:00 03/06/19 11:04 Nacl 0.9% 1000 Ml IV 42 mls/hr DIRECT SOUMYA Administration Levofloxacin/Dextrose 750 mg in 150 mls @ 150 mls/hr 03/06/19 10:00 03/06/19 09:33 Levaquin 750mg/150ml IV 150 mls/hr Q24HR SOUMYA Administration Protocol Insulin Human Lispro 0 unit 03/06/19 07:30 03/06/19 07:30 Humalog SUB-Q Not Given ACHS [facility] Protocol Morphine Sulfate 2 mg 03/06/19 01:58 03/06/19 09:34 Morphine IV 03/07/19 23:59 2 mg Q4H PRN Administration Pain, Moderate (4-6) Nitroglycerin 0.4 mg 03/06/19 02:01 Nitrostat SL Q5M PRN Chest Pain Ondansetron HCl 4 mg 03/06/19 01:58 Zofran IV Q8H PRN Nausea And Vomiting Sodium Chloride 10 ml 03/06/19 10:00 03/06/19 09:34 Sodium Chloride Flush Syringe 10 Ml IV 10 ml BID SOUMYA Administration Sodium Chloride 10 ml 03/06/19 01:58 Sodium Chloride Flush Syringe 10 Ml IV PRN PRN LINE FLUSH Torsemide 40 mg 03/06/19 06:00 03/06/19 05:14 Demadex PO 40 mg BID@0600,1800 SOUMYA Administration
[2019-03-06] MEDS ORDERED: K-DUR PO ONE (12:00)
--- NOTE | 2019-03-06 14:47 | Ultrasound Report ---
ULTRASOUND RENAL INDICATION / CLINICAL INFORMATION: Renal failure. COMPARISON: None available. FINDINGS: RIGHT KIDNEY: - Length = 9.7 cm. [Normal > 9.0 cm] - Parenchymal Thickness = 1.7 cm. [Normal > 1.5 cm] - Echogenicity: Echogenic -- hyperechoic to liver/spleen. - Hydronephrosis: None. - Cyst or mass: No significant abnormality. LEFT KIDNEY: - Length = 11.2 cm. [Normal > 9.0 cm] - Parenchymal Thickness = 1.7 cm. [Normal > 1.5 cm] - Echogenicity: Normal -- hypoechoic or isoechoic to liver/spleen. - Hydronephrosis: None. - Cyst or mass: No significant abnormality. URINARY BLADDER: No significant abnormality. ADDITIONAL FINDINGS: None. IMPRESSION: 1. No evidence of hydronephrosis. 2. Evidence of medical renal disease involving the right kidney. Renal Parenchymal Thickness Parenchyma = Cortex + Medullary Pyramid - Normal >= 1.5 cm - Mild thinning = 1.0-1.49 cm - Moderate thinning = 0.5-0.99 cm - Severe thinning < 0.5 cm Signer Name: Memo Giraldo MD Signed: 03/06/2019 2:43 PM Workstation Name: [id number]
[2019-03-07] MEDS: SODIUM CHLORIDE FLUSH SYRINGE 10 ML IV SCH ×3 (00:01→21:33)
[2019-03-07] MEDS: MORPHINE IV PRN ×5 (00:35→21:35)
[2019-03-07 03:37] LABS: Basophils # (Auto) 0.1 K/mm3 (0.0-0.1); Basophils % (Auto) 1.6 % (0.0-1.8); Eosinophils # (Auto) 0.1 K/mm3 (0.0-0.4); Eosinophils % (Auto) 1.9 % (0.0-4.3); Hemoglobin 11.8 gm/dl (11.8-15.2); Lymphocytes # (Auto) 0.9 K/mm3 (1.2-5.4); Mean Corpuscular HGB Conc 33 % (32-34); Mean Corpuscular Volume 88 fl (84-94); Monocytes # (Auto) 0.6 K/mm3 (0.0-0.8); Monocytes % (Auto) 10.2 % (0.0-7.3); Platelet Count 192 K/mm3 (140-440); Red Blood Count 4.12 M/mm3 (3.65-5.03); Red Cell Distribution Width 19.9 % (13.2-15.2)
[2019-03-07 04:04] LABS: Calcium 8.7 mg/dL (8.4-10.2)
[2019-03-07] MEDS: APRESOLINE PO SCH ×3 (05:59→21:33)
[2019-03-07] MEDS: DEMADEX PO SCH ×2 (05:59→17:44)
[2019-03-07] MEDS: HumaLOG SUB-Q SCH ×4 (07:30→21:33)
[2019-03-07] MEDS: PROVENTIL IH PRN (08:34)
[2019-03-07] MEDS: PULMICORT IH SCH ×2 (08:35→20:15)
[2019-03-07] MEDS: MUCINEX ER PO SCH ×2 (09:04→21:33)
[2019-03-07] MEDS: BABY ASPIRIN PO SCH (09:04)
[2019-03-07] MEDS: ELIQUIS PO SCH ×2 (09:04→21:33)
[2019-03-07] MEDS: COLACE PO SCH ×3 (09:05→21:34)
[2019-03-07] MEDS: LEVAQUIN 750MG/150ML 750 MG/150 ML BAG IV SCH (09:05)
[2019-03-07] MEDS: NACL 0.9% 1000 ML 1,000 ML IV SCH (09:21)
--- NOTE | 2019-03-07 09:43 | Progress Note ---
Assessment and Plan - Patient Problems (1) Pneumonia Current Visit: Yes Status: Acute (2) Pleural effusion Current Visit: Yes Status: Acute (3) Renal insufficiency Current Visit: Yes Status: Acute Subjective Interval history: didnt sleep last night Objective Vital Signs - 12hr 03/07/19 03/07/19 03/07/19 00:03 00:05 03:00 Temperature 97.5 F L Pulse Rate 100 H 103 H Respiratory 20 Rate Blood Pressure 116/90 O2 Sat by Pulse 95 Oximetry 03/07/19 03/07/19 03/07/19 05:48 05:49 08:28 Temperature 98.1 F Pulse Rate 76 101 H Respiratory 20 Rate Blood Pressure 132/90 O2 Sat by Pulse 94 Oximetry 03/07/19 08:35 Temperature 98.1 F Pulse Rate 77 Respiratory 16 Rate Blood Pressure 115/71 O2 Sat by Pulse 95 Oximetry Constitutional: no acute distress Eyes: non-icteric ENT: oropharynx moist Neck: supple Ascultation: Bilateral: diminished breath sounds, rhonchi (rare) Cardiovascular: regular rate and rhythm Gastrointestinal: normoactive bowel sounds, non-distended Integumentary: normal Extremities: no cyanosis Neurologic: normal mental status, non-focal exam Psychiatric: mood appropriate CBC and BMP: 03/07/19 03:11 03/07/19 03:11 ABG, PT/INR, D-dimer: PT/INR, D-dimer PT 15.9 Sec. (12.2-14.9) H 03/05/19 22:42 INR 1.30 (0.87-1.13) H 03/05/19 22:42 1869.29 ng/mlDDU (0-234) H 03/05/19 22:42 Abnormal lab findings: Abnormal Labs 03/05/19 03/05/19 03/05/19 22:42 22:42 22:42 Hgb 11.7 L Hct 35.1 L RDW 20.1 H [place] % (Auto) 9.3 H Baso % (Auto) 2.6 H Lymph # Baso # 0.2 H Seg Neutrophils % PT 15.9 H INR 1.30 H D-Dimer 1869.29 H Potassium 5.6 H BUN 34 H Creatinine 1.8 H Glucose 102 H POC Glucose Uric Acid HDL Cholesterol Urine Creatinine 03/06/19 03/06/19 03/06/19 02:19 02:19 05:56 Hgb Hct RDW 20.1 H [place] % (Auto) 10.1 H Baso % (Auto) Lymph # 1.1 L Baso # Seg Neutrophils % PT INR D-Dimer Potassium 3.5 L D BUN 36 H Creatinine 1.9 H Glucose POC Glucose Uric Acid HDL Cholesterol 26 L Urine Creatinine 03/06/19 03/06/19 03/06/19 09:55 11:29 16:10 Hgb Hct RDW [place] % (Auto) Baso % (Auto) Lymph # Baso # Seg Neutrophils % PT INR D-Dimer Potassium BUN Creatinine Glucose POC Glucose 107 H Uric Acid 15.2 H HDL Cholesterol Urine Creatinine 33.0 H 03/06/19 03/07/19 03/07/19 21:27 03:11 03:11 Hgb Hct RDW 19.9 H [place] % (Auto) 10.2 H Baso % (Auto) Lymph # 0.9 L Baso # Seg Neutrophils % 71.3 H PT INR D-Dimer Potassium BUN 30 H Creatinine 1.8 H Glucose 103 H POC Glucose 108 H Uric Acid HDL Cholesterol Urine Creatinine
--- NOTE | 2019-03-07 10:01 | Progress Note ---
Subjective Interval history: Patient was seen today for follow-up, regarding multiple renal related issues Events of 24 hours were noted Patient is extremely poor historian Patient denies any complaints of chest pain pressure or shortness of breath Interdisciplinary Notes were also reviewed from past 24 hours Vitals labs intake output medications: Reviewed Past medical history: Reviewed Allergies: Reviewed Social history: Reviewed Family history: Reviewed Physical examination Gen.: No acute distress HEENT: Mild pallor nor icterus no uremic order Neck: Supple without any mass or JVD Chest: Clear to auscultation anteriorly Heart: Regular rate and rhythm S1 and S2 heard Abdomen: Soft nontender no suprapubic fullness no masses no renal bruit Extremity: Edema , no peripheral cyanosis Skin: No petechial rashes dry skin Assessment and plan Renal. The patient is 53-year-old and has multiple risk factors for underlying chronic kidney disease, patient is a very poor historian he has recently moved from [facility] and was admitted to [facility], he does not remember his baseline creatinine Currently during this admission his creatinine has been stable around 1.8 I have placed her record request for discharge summary, and health records from [facility] Hyperkalemia: Has improved At this point would like to obtain the records from [facility] to know what his baseline creatinine has been it is quite possible that patient may have underlying chronic kidney disease and he is not aware of this Patient is a very poor historian and he has multiple comorbidities Chronic ongoing tobacco abuse, dilated cardiomyopathy acute on chronic combined systolic and diastolic heart failure intermediate probably T pulmonary embolism, already on Eliqis being followed by pulmonary he also does have COPD as well as congestive heart failure Continue to diurese as tolerated keeping his target creatinine less than 2.2 for now Obtain outside medical records, Significant lab finding were discussed with patient unexplained and simple [place] Patient does have good understanding about renal related issues We'll continue to follow and make recommendation from renal standpoint Objective - Vital Signs Vital signs: Vital Signs - 12hr 03/07/19 03/07/19 03/07/19 00:03 00:05 03:00 Temperature 97.5 F L Pulse Rate 100 H 103 H Respiratory 20 Rate Blood Pressure 116/90 O2 Sat by Pulse 95 Oximetry 03/07/19 03/07/19 03/07/19 05:48 05:49 08:28 Temperature 98.1 F Pulse Rate 76 101 H Respiratory 20 Rate Blood Pressure 132/90 O2 Sat by Pulse 94 Oximetry 03/07/19 08:35 Temperature 98.1 F Pulse Rate 77 Respiratory 16 Rate Blood Pressure 115/71 O2 Sat by Pulse 95 Oximetry - Lab 03/07/19 03:11 03/07/19 03:11 Most recent lab results Calcium 8.7 mg/dL (8.4-10.2) 03/07/19 03:11 33.0 mg/dL (0.1-20.0) H 03/06/19 16:10 91 mmol/L 03/06/19 16:10 5 mg/dL (5-11.8) 03/06/19 16:10 Medications & Allergies - Medications Allergies/Adverse Reactions: Allergies Penicillins Allergy (Verified 03/05/19 22:41) Itching strawberry Allergy (Verified 03/05/19 22:41) Hives Home Medications: Home Medications Medication Instructions Recorded Confirmed Last Taken Type Apixaban [Eliquis] 1 tab PO BID 03/05/19 03/05/19 Unknown History Clindamycin [Clindamycin CAP] 150 mg PO TID 03/05/19 03/05/19 Unknown History Lisinopril [Zestril TAB] 1 tab PO DAILY 03/05/19 03/05/19 Unknown History Torsemide [Demadex] 2 tab PO BID 03/05/19 03/05/19 Unknown History hydrALAZINE [Apresoline TAB] 1 tab PO Q8HR 03/05/19 03/05/19 Unknown History Active Medications: Generic Name Dose Route Start Last Admin Trade Name Freq PRN Reason Stop Dose Admin Acetaminophen 650 mg 03/06/19 01:58 Tylenol PO Q4H PRN Pain MILD(1-3)/Fever >100.5/TRUJILLO Albuterol 2.5 mg 03/06/19 01:58 03/07/19 08:34 Proventil IH 2.5 mg Q3HRT PRN Administration Shortness Of Breath Apixaban 5 mg 03/06/19 10:00 03/07/19 09:04 Eliquis PO 5 mg BID SOUMYA Administration Protocol Aspirin 81 mg 03/07/19 10:00 03/07/19 09:04 Baby Aspirin PO 81 mg QDAY SOUMYA Administration Atorvastatin Calcium 40 mg 03/06/19 22:00 03/06/19 21:08 Lipitor PO 40 mg QHS SOUMYA Administration Budesonide 0.5 mg 03/06/19 08:00 03/07/19 08:35 Pulmicort IH 0.5 mg Q12HRT SOUMYA Administration Dextrose 50 ml 03/06/19 02:00 D50w (25gm) Syringe IV PRN PRN Hypoglycemia Docusate Sodium 100 mg 03/06/19 10:00 03/07/19 09:46 Colace PO Not Given BID SOUMYA Guaifenesin 600 mg 03/06/19 10:00 03/07/19 09:04 Mucinex Er PO 600 mg BID SOUMYA Administration Hydralazine HCl 100 mg 03/06/19 06:00 03/07/19 05:59 Apresoline PO 100 mg Q8HR SOUMYA Administration Hydromorphone HCl 0.5 mg 03/06/19 02:00 Dilaudid IV 03/07/19 23:59 Q3H PRN Pain , Severe (7-10) Sodium Chloride 1,000 mls @ 42 mls/hr 03/06/19 02:00 03/07/19 09:21 Nacl 0.9% 1000 Ml IV 42 mls/hr DIRECT SOUMYA Administration Levofloxacin/Dextrose 750 mg in 150 mls @ 150 mls/hr 03/06/19 10:00 03/07/19 09:05 Levaquin 750mg/150ml IV 150 mls/hr Q24HR SOUMYA Administration Protocol Insulin Human Lispro 0 unit 03/06/19 07:30 03/07/19 07:30 Humalog SUB-Q Not Given ACHS [facility] Protocol Morphine Sulfate 2 mg 03/06/19 01:58 03/07/19 09:20 Morphine IV 03/07/19 23:59 2 mg Q4H PRN Administration Pain, Moderate (4-6) Nitroglycerin 0.4 mg 03/06/19 02:01 Nitrostat SL Q5M PRN Chest Pain Ondansetron HCl 4 mg 03/06/19 01:58 Zofran IV Q8H PRN Nausea And Vomiting Sodium Chloride 10 ml 03/06/19 10:00 03/07/19 09:05 Sodium Chloride Flush Syringe 10 Ml IV 10 ml BID SOUMYA Administration Sodium Chloride 10 ml 03/06/19 01:58 Sodium Chloride Flush Syringe 10 Ml IV PRN PRN LINE FLUSH Torsemide 40 mg 03/06/19 06:00 03/07/19 05:59 Demadex PO 40 mg BID@0600,1800 [facility] Administration
--- NOTE | 2019-03-07 10:30 | Progress Note ---
Assessment and Plan 1. Chronic combined systolic and diastolic heart failure 2. Chronic atrial fibrillation 3. Dilated ischemic cardiomyopathy 4. Essential hypertension 5. Type 2 diabetes mellitus 6. Chronic obstructive pulmonary disease 7. Presence of the ICD 8. CKD stage 3 Plan Patient to be started on Nitropaste for pre-and afterload reduction patient have diuresis. Chest pains likely pleuritic. CXR shows moderate right pleural effusion. Echocardiogram to be done to assess global and regional function obtain records from [facility] regarding recent cardiac workup. Consider Thoracocentesis Subjective Date of service: 03/07/19 Interval history: No cardiac symptoms. Objective Vital Signs Temp Pulse Pulse Resp Resp Resp BP 03/07/19 08:35 98.1 F 77 16 115/71 03/07/19 08:28 101 H 03/07/19 05:49 98.1 F 03/07/19 05:48 76 20 132/90 03/07/19 03:00 103 H 03/07/19 00:05 97.5 F L 03/07/19 00:03 100 H 20 116/90 03/06/19 20:45 94 H 16 03/06/19 20:38 97.6 F 03/06/19 20:37 53 L 20 106/88 03/06/19 19:00 94 H 03/06/19 17:00 18 20 03/06/19 16:42 97.3 F L 97 H 16 129/96 03/06/19 16:14 20 03/06/19 15:44 20 03/06/19 13:06 98.4 F 61 14 122/96 Pulse Ox 03/07/19 08:35 95 03/07/19 08:28 03/07/19 05:49 03/07/19 05:48 94 03/07/19 03:00 03/07/19 00:05 03/07/19 00:03 95 03/06/19 20:45 95 03/06/19 20:38 03/06/19 20:37 94 03/06/19 19:00 03/06/19 17:00 03/06/19 16:42 95 03/06/19 16:14 03/06/19 15:44 03/06/19 13:06 96 - Physical Examination General: Appears Well, No Apparent Distress HEENT: Positive: PERRL, Mucus Membranes Moist Neck: Positive: neck supple. Negative: JVD/HJR Cardiac: Positive: Reg Rate and Rhythm, S1/S2, PMI, Dilated, Laterally Displaced Lungs: Positive: clear to auscultation, No Wheeze, Rales, Rhonchi Neuro: Positive: Grossly Intact Abdomen: Positive: Unremarkable Extremities: Absent: edema - Labs and Meds CBC 03/07/19 Range/Units 03:11 WBC 6.0 (4.5-11.0) K/mm3 RBC 4.12 (3.65-5.03) M/mm3 Hgb 11.8 (11.8-15.2) gm/dl Hct 36.0 (35.5-45.6) % Plt Count 192 (140-440) K/mm3 Lymph # 0.9 L (1.2-5.4) K/mm3 [place] # 0.6 (0.0-0.8) K/mm3 Eos # 0.1 (0.0-0.4) K/mm3 Baso # 0.1 (0.0-0.1) K/mm3 Comprehensive Metabolic Panel 03/07/19 Range/Units 03:11 Sodium 138 (137-145) mmol/L Potassium 3.7 (3.6-5.0) mmol/L Chloride 99.8 (98-107) mmol/L Carbon Dioxide 24 (22-30) mmol/L BUN 30 H (9-20) mg/dL Creatinine 1.8 H (0.8-1.5) mg/dL Glucose 103 H (75-100) mg/dL Calcium 8.7 (8.4-10.2) mg/dL
--- NOTE | 2019-03-07 11:48 | Progress Note ---
Assessment and Plan Assessment and plan: --Atypical chest pain; rule out acute coronary syndrome Procedures cardiac enzymes, EKG, echocardiogram Cardiology follow, possible stress test to rule out ischemia --Acute exacerbation of chronic combined systolic and diastolic heart failure Anticipated medications, input output monitoring, low sodium diet, fluid restriction Follow echocardiogram and left ventricular function -- Dilated ischemic cardiomyopathy Anti-failure medications --Intermediate probability for acute PE on VQ scan; Patient is already on Eliquis, supportive care --Chronic atrial fibrillation; rate controlled Beta blockers, chronic anticoagulation, supportive care --Acute kidney injury; vasomotor nephropathy Avoid nephrotoxins, nephrology evaluation if needed --Essential hypertension; Continue antihypertensives, when necessary hydralazine -- Type 2 diabetes mellitus; Accu-Chek sliding scale coverage and ADA diet as needed --Chronic obstructive pulmonary disease Oxygen titrated to O2 sats more than 90%, nebulizers as needed -- Presence of the ICD; stable cardiology following --DVT Prophylaxis: on Eliquis History Interval history: Patient seen and examined medical records reviewed Complaints of generalized weakness Vague chest pain, cardiology following Alert awake oriented 3 not in acute distress Vital signs noted Hospitalist Physical - Constitutional Vitals: Temp Pulse Resp BP Pulse Ox 98.1 F 77 16 115/71 95 03/07/19 08:35 03/07/19 08:35 03/07/19 08:35 03/07/19 08:35 03/07/19 08:35 General appearance: Present: no acute distress, well-nourished - EENT Eyes: Present: PERRL, EOM intact - Neck Neck: Present: supple, normal ROM - Respiratory Respiratory effort: normal Respiratory: bilateral: diminished, rales, negative: rhonchi, wheezing - Cardiovascular Rhythm: regular Heart Sounds: Present: S1 & S2 - Extremities Extremities: no ischemia Extremity abnormal: edema - Abdominal General gastrointestinal: soft, non-tender, non-distended, normal bowel sounds - Integumentary Integumentary: Present: clear, warm - Psychiatric Psychiatric: appropriate mood/affect, cooperative - Neurologic Neurologic: moves all extremities Results - Labs CBC & Chem 7: 03/07/19 03:11 03/07/19 03:11 Labs: Laboratory Last Values WBC 6.0 K/mm3 (4.5-11.0) 03/07/19 03:11 RBC 4.12 M/mm3 (3.65-5.03) 03/07/19 03:11 Hgb 11.8 gm/dl (11.8-15.2) 03/07/19 03:11 Hct 36.0 % (35.5-45.6) 03/07/19 03:11 MCV 88 fl (84-94) 03/07/19 03:11 MCH 29 pg (28-32) 03/07/19 03:11 MCHC 33 % (32-34) 03/07/19 03:11 RDW 19.9 % (13.2-15.2) H 03/07/19 03:11 Plt Count 192 K/mm3 (140-440) 03/07/19 03:11 Lymph % (Auto) 15.0 % (13.4-35.0) 03/07/19 03:11 [place] % (Auto) 10.2 % (0.0-7.3) H 03/07/19 03:11 Eos % (Auto) 1.9 % (0.0-4.3) 03/07/19 03:11 Baso % (Auto) 1.6 % (0.0-1.8) 03/07/19 03:11 Lymph # 0.9 K/mm3 (1.2-5.4) L 03/07/19 03:11 [place] # 0.6 K/mm3 (0.0-0.8) 03/07/19 03:11 Eos # 0.1 K/mm3 (0.0-0.4) 03/07/19 03:11 Baso # 0.1 K/mm3 (0.0-0.1) 03/07/19 03:11 Seg Neutrophils % 71.3 % (40.0-70.0) H 03/07/19 03:11 Seg Neutrophils # 4.3 K/mm3 (1.8-7.7) 03/07/19 03:11 PT 15.9 Sec. (12.2-14.9) H 03/05/19 22:42 INR 1.30 (0.87-1.13) H 03/05/19 22:42 APTT 26.3 Sec. (24.2-36.6) 03/05/19 22:42 1869.29 ng/mlDDU (0-234) H 03/05/19 22:42 Sodium 138 mmol/L (137-145) 03/07/19 03:11 Potassium 3.7 mmol/L (3.6-5.0) 03/07/19 03:11 Chloride 99.8 mmol/L (98-107) 03/07/19 03:11 Carbon Dioxide 24 mmol/L (22-30) 03/07/19 03:11 18 mmol/L 03/07/19 03:11 BUN 30 mg/dL (9-20) H 03/07/19 03:11 1.8 mg/dL (0.8-1.5) H 03/07/19 03:11 Estimated GFR 48 ml/min 03/07/19 03:11 17 % 03/07/19 03:11 Glucose 103 mg/dL (75-100) H 03/07/19 03:11 POC Glucose 88 (70-105) 03/07/19 08:01 5.6 % (4-6) 03/06/19 02:19 308 Mosm/kg 03/06/19 09:55 15.2 mg/dL (3.5-7.6) H 03/06/19 09:55 Calcium 8.7 mg/dL (8.4-10.2) 03/07/19 03:11 80 units/L (55-170) 03/05/19 22:42 CK-MB (CK-2) 2.2 ng/mL (0.0-4.0) 03/05/19 22:42 CK-MB (CK-2) Rel Index 2.7 (0-4) 03/05/19 22:42 0.019 ng/mL (0.00-0.029) 03/06/19 05:56 Triglycerides 82 mg/dL (2-149) 03/06/19 05:56 Cholesterol 135 mg/dL (50-199) 03/06/19 05:56 97 mg/dL (50-130) 03/06/19 05:56 26 mg/dL (40-59) L 03/06/19 05:56 5.19 % 03/06/19 05:56 33.0 mg/dL (0.1-20.0) H 03/06/19 16:10 91 mmol/L 03/06/19 16:10 5 mg/dL (5-11.8) 03/06/19 16:10 Active Medications - Current Medications Current Medications: Generic Name Dose Route Start Last Admin Trade Name Freq PRN Reason Stop Dose Admin Acetaminophen 650 mg 03/06/19 01:58 Tylenol PO Q4H PRN Pain MILD(1-3)/Fever >100.5/TRUJILLO Albuterol 2.5 mg 03/06/19 01:58 03/07/19 08:34 Proventil IH 2.5 mg Q3HRT PRN Administration Shortness Of Breath Apixaban 5 mg 03/06/19 10:00 03/07/19 09:04 Eliquis PO 5 mg BID SOUMYA Administration Protocol Aspirin 81 mg 03/07/19 10:00 03/07/19 09:04 Baby Aspirin PO 81 mg QDAY SOUMYA Administration Atorvastatin Calcium 40 mg 03/06/19 22:00 03/06/19 21:08 Lipitor PO 40 mg QHS SOUMYA Administration Budesonide 0.5 mg 03/06/19 08:00 03/07/19 08:35 Pulmicort IH 0.5 mg Q12HRT SOUMYA Administration Dextrose 50 ml 03/06/19 02:00 D50w (25gm) Syringe IV PRN PRN Hypoglycemia Docusate Sodium 100 mg 03/06/19 10:00 03/07/19 09:46 Colace PO Not Given BID SOUMYA Guaifenesin 600 mg 03/06/19 10:00 03/07/19 09:04 Mucinex Er PO 600 mg BID SOUMYA Administration Hydralazine HCl 100 mg 03/06/19 06:00 03/07/19 05:59 Apresoline PO 100 mg Q8HR SOUMYA Administration Hydromorphone HCl 0.5 mg 03/06/19 02:00 Dilaudid IV 03/07/19 23:59 Q3H PRN Pain , Severe (7-10) Sodium Chloride 1,000 mls @ 42 mls/hr 03/06/19 02:00 03/07/19 09:21 Nacl 0.9% 1000 Ml IV 42 mls/hr DIRECT SOUMYA Administration Levofloxacin/Dextrose 750 mg in 150 mls @ 150 mls/hr 03/06/19 10:00 03/07/19 09:05 Levaquin 750mg/150ml IV 150 mls/hr Q24HR SOUMYA Administration Protocol Insulin Human Lispro 0 unit 03/06/19 07:30 03/07/19 07:30 Humalog SUB-Q Not Given ACHS SOUMYA Protocol Morphine Sulfate 2 mg 03/06/19 01:58 03/07/19 09:20 Morphine IV 03/07/19 23:59 2 mg Q4H PRN Administration Pain, Moderate (4-6) Nitroglycerin 0.4 mg 03/06/19 02:01 Nitrostat SL Q5M PRN Chest Pain Ondansetron HCl 4 mg 03/06/19 01:58 Zofran IV Q8H PRN Nausea And Vomiting Sodium Chloride 10 ml 03/06/19 10:00 03/07/19 09:05 Sodium Chloride Flush Syringe 10 Ml IV 10 ml BID SOUMYA Administration Sodium Chloride 10 ml 03/06/19 01:58 Sodium Chloride Flush Syringe 10 Ml IV PRN PRN LINE FLUSH Torsemide 40 mg 03/06/19 06:00 03/07/19 05:59 Demadex PO 40 mg BID@0600,1800 SOUMYA Administration
[2019-03-08] MEDS ORDERED: REGLAN IV PRN (02:23)
[2019-03-08] MEDS: PERCOCET 5/325 PO PRN ×3 (03:08→19:47)
[2019-03-08] MEDS: APRESOLINE PO SCH ×3 (06:00→22:07)
[2019-03-08] MEDS: DEMADEX PO SCH ×2 (06:00→18:38)
[2019-03-08 06:28] LABS: Calcium 9.1 mg/dL (8.4-10.2)
[2019-03-08] MEDS: PROVENTIL IH PRN (07:33)
[2019-03-08] MEDS: PULMICORT IH SCH ×2 (07:33→20:01)
[2019-03-08] MEDS: HumaLOG SUB-Q SCH ×4 (09:33→22:06)
[2019-03-08] MEDS: COLACE PO SCH ×2 (09:34→22:55)
[2019-03-08] MEDS: MUCINEX ER PO SCH ×2 (09:34→22:07)
[2019-03-08] MEDS: BABY ASPIRIN PO SCH (09:35)
[2019-03-08] MEDS: ELIQUIS PO SCH (09:35)
--- NOTE | 2019-03-08 09:48 | Progress Note ---
Assessment and Plan Right Pleural effusion VQ scan reports intermediate probability for PE Chest pain, atypical Chronic systolic heart failure Chronic atrial fibrillation on Xarelto as an outpatient Hx of Nonischemic cardiomyopathy pt reports recent negative LHC but EF 35% at [facility] 3 months ago Presence of the ICD Essential hypertension Type 2 diabetes mellitus Chronic obstructive pulmonary disease CKD Obtain prior records from [facility] for cardiac review. Medical therapy for nonischemic cardiomyopathy and chronic atrial fibrillation as tolerated. Subjective Date of service: 03/08/19 Interval history: Patient denies shortness of breath but reports chest pain. No distress noted. Objective Vital Signs Temp Pulse Pulse Pulse Resp Resp Resp 03/08/19 07:54 79 18 03/08/19 07:45 97.2 F L 98 H 18 03/08/19 07:34 49 L 16 03/08/19 04:13 92 H 03/08/19 03:56 98.0 F 62 18 03/07/19 23:11 98.0 F 89 18 03/07/19 22:50 03/07/19 21:35 03/07/19 20:35 92 H 18 03/07/19 19:22 102 H 03/07/19 19:15 98.0 F 66 20 03/07/19 17:01 98.1 F 71 14 03/07/19 14:16 91 H 03/07/19 12:56 98.0 F 88 16 BP BP Pulse Ox 03/08/19 07:54 03/08/19 07:45 103/67 90 03/08/19 07:34 96 03/08/19 04:13 03/08/19 03:56 104/76 93 03/07/19 23:11 98/68 92 03/07/19 22:50 96 03/07/19 21:35 110/82 03/07/19 20:35 03/07/19 19:22 03/07/19 19:15 119/81 90 03/07/19 17:01 124/95 95 03/07/19 14:16 118/70 03/07/19 12:56 97/69 84 - Physical Examination General: No Apparent Distress HEENT: Positive: PERRL, Mucus Membranes Moist Neck: Positive: neck supple. Negative: JVD/HJR Cardiac: Positive: irregularly irregular Lungs: Positive: Decreased Breath Sounds Neuro: Positive: Grossly Intact Abdomen: Positive: Unremarkable Extremities: Absent: edema - Labs and Meds Comprehensive Metabolic Panel 03/08/19 Range/Units 04:37 Sodium 136 L (137-145) mmol/L Potassium 3.7 (3.6-5.0) mmol/L Chloride 97.4 L (98-107) mmol/L Carbon Dioxide 26 (22-30) mmol/L BUN 27 H (9-20) mg/dL Creatinine 1.7 H (0.8-1.5) mg/dL Glucose 89 (75-100) mg/dL Calcium 9.1 (8.4-10.2) mg/dL
[2019-03-08] MEDS: SODIUM CHLORIDE FLUSH SYRINGE 10 ML IV SCH ×2 (11:14→22:08)
--- NOTE | 2019-03-08 11:42 | Progress Note ---
Assessment and Plan 1. Chronic combined systolic and diastolic heart failure 2. Chronic atrial fibrillation 3. Dilated ischemic cardiomyopathy 4. Essential hypertension 5. Type 2 diabetes mellitus 6. Chronic obstructive pulmonary disease 7. Presence of the ICD 8. CKD stage 3 Plan cr is 1.7 and stable cards and pulm condition noted strict i/os daily lytes ok to dc from renal standpoint Subjective Date of service: 03/08/19 Principal diagnosis: ckd 3 Interval history: resting in bed today Objective - Exam Narrative Exam: General: Appears Well, No Apparent Distress HEENT: Positive: PERRL, Mucus Membranes Moist Neck: Positive: neck supple. Negative: JVD/HJR Neuro: Positive: Grossly Intact Abdomen: Positive: Unremarkable Extremities: Absent: edema - Vital Signs Vital signs: Vital Signs - 12hr 03/08/19 03/08/19 03/08/19 03:56 04:13 07:34 Temperature 98.0 F Pulse Rate 62 92 H Pulse Rate [ 49 L Posterior Bilateral Throughout] Respiratory 18 Rate Respiratory 16 Rate [Posterior Bilateral Throughout] Blood Pressure 104/76 O2 Sat by Pulse 93 96 Oximetry 03/08/19 03/08/19 03/08/19 07:45 07:54 11:10 Temperature 97.2 F L Pulse Rate 98 H Pulse Rate [ 79 Posterior Bilateral Throughout] Respiratory 18 18 Rate Respiratory 18 Rate [Posterior Bilateral Throughout] Blood Pressure 103/67 O2 Sat by Pulse 90 Oximetry - Lab 03/07/19 03:11 03/08/19 04:37 Most recent lab results Calcium 9.1 mg/dL (8.4-10.2) 03/08/19 04:37 Magnesium 1.90 mg/dL (1.7-2.3) 03/08/19 04:37 33.0 mg/dL (0.1-20.0) H 03/06/19 16:10 91 mmol/L 03/06/19 16:10 5 mg/dL (5-11.8) 03/06/19 16:10 Medications & Allergies - Medications Allergies/Adverse Reactions: Allergies Penicillins Allergy (Verified 03/05/19 22:41) Itching strawberry Allergy (Verified 03/05/19 22:41) Hives Home Medications: Home Medications Medication Instructions Recorded Confirmed Last Taken Type Apixaban [Eliquis] 1 tab PO BID 03/05/19 03/05/19 Unknown History Clindamycin [Clindamycin CAP] 150 mg PO TID 03/05/19 03/05/19 Unknown History Lisinopril [Zestril TAB] 1 tab PO DAILY 03/05/19 03/05/19 Unknown History Torsemide [Demadex] 2 tab PO BID 03/05/19 03/05/19 Unknown History hydrALAZINE [Apresoline TAB] 1 tab PO Q8HR 03/05/19 03/05/19 Unknown History Active Medications: Generic Name Dose Route Start Last Admin Trade Name Freq PRN Reason Stop Dose Admin Acetaminophen 650 mg 03/06/19 01:58 Tylenol PO Q4H PRN Pain MILD(1-3)/Fever >100.5/TRUJILLO Albuterol 2.5 mg 03/06/19 01:58 03/08/19 07:33 Proventil IH 2.5 mg Q3HRT PRN Administration Shortness Of Breath Apixaban 5 mg 03/06/19 10:00 03/08/19 09:35 Eliquis PO 5 mg BID SOUMYA Administration Protocol Aspirin 81 mg 03/07/19 10:00 03/08/19 09:35 Baby Aspirin PO 81 mg QDAY SOUMYA Administration Atorvastatin Calcium 40 mg 03/06/19 22:00 03/07/19 21:33 Lipitor PO 40 mg QHS SOUMYA Administration Budesonide 0.5 mg 03/06/19 08:00 03/08/19 07:33 Pulmicort IH 0.5 mg Q12HRT SOUMYA Administration Carvedilol 3.125 mg 03/08/19 10:00 Coreg PO BID SOUMYA Dextrose 50 ml 03/06/19 02:00 D50w (25gm) Syringe IV PRN PRN Hypoglycemia Docusate Sodium 100 mg 03/06/19 10:00 03/08/19 09:34 Colace PO 100 mg BID SOUMYA Administration Guaifenesin 600 mg 03/06/19 10:00 03/08/19 09:34 Mucinex Er PO 600 mg BID SOUMYA Administration Hydralazine HCl 100 mg 03/06/19 06:00 03/08/19 06:00 Apresoline PO 100 mg Q8HR SOUMYA Administration Sodium Chloride 1,000 mls @ 42 mls/hr 03/06/19 02:00 03/07/19 09:21 Nacl 0.9% 1000 Ml IV 42 mls/hr DIRECT SOUMYA Administration Levofloxacin/Dextrose 750 mg in 150 mls @ 150 mls/hr 03/06/19 10:00 03/07/19 09:05 Levaquin 750mg/150ml IV 150 mls/hr Q24HR SOUMYA Administration Protocol Insulin Human Lispro 0 unit 03/06/19 07:30 03/08/19 09:33 Humalog SUB-Q Not Given ACHS [facility] Protocol Metoclopramide HCl 10 mg 03/08/19 02:23 Reglan IV Q6H PRN Nausea And Vomiting Nitroglycerin 0.4 mg 03/06/19 02:01 Nitrostat SL Q5M PRN Chest Pain Ondansetron HCl 4 mg 03/06/19 01:58 Zofran IV Q8H PRN Nausea And Vomiting Oxycodone/Acetaminophen 1 tab 03/08/19 02:43 03/08/19 11:10 Percocet 5/325 PO 1 tab Q4H PRN Administration Pain, Moderate (4-6) Sodium Chloride 10 ml 03/06/19 10:00 03/08/19 11:14 Sodium Chloride Flush Syringe 10 Ml IV 10 ml BID SOUMYA Administration Sodium Chloride 10 ml 03/06/19 01:58 Sodium Chloride Flush Syringe 10 Ml IV PRN PRN LINE FLUSH Torsemide 40 mg 03/06/19 06:00 03/08/19 06:00 Demadex PO 40 mg BID@0600,1800 SOUMYA Administration
[2019-03-08] MEDS: NACL 0.9% 1000 ML 1,000 ML IV SCH (11:48)
[2019-03-08] MEDS: LEVAQUIN 750MG/150ML 750 MG/150 ML BAG IV SCH (12:00)
[2019-03-08] MEDS: COREG PO SCH ×2 (12:04→22:07)
--- NOTE | 2019-03-08 17:33 | Progress Note ---
Assessment and Plan Imp: 1. Pleural effusion versus pneumonia versus atelectasis versus scarring; r/o lung mass 2. Chronic nicotine dependence, cigarettes 3. NICMP 4. Chronic systolic CHF 5. ESTEVAN Rec: 1. Cont. Levaquin for now 2. CT chest w/o contrast 3. Doubt PE on Eliquis; V/Q results not helpful 4. Stop smoking, counseled 5. Will f/u in AM after CT Plan of care reviewed w/ patient, he understands/agrees Subjective Date of service: 03/08/19 Principal diagnosis: ckd 3 Interval history: No events. Still with chest pain, L anterior chest. + SOB. On RA. Active Medications Acetaminophen (Tylenol) 650 mg PO Q4H PRN PRN Reason: Pain MILD(1-3)/Fever >100.5/TRUJILLO Albuterol (Proventil) 2.5 mg IH Q3HRT PRN PRN Reason: Shortness Of Breath Last Admin: 03/08/19 07:33 Dose: 2.5 mg Documented by: Apixaban (Eliquis) 5 mg PO BID [facility]ENDING [facility] TO [facility]; Protocol Last Admin: 03/08/19 09:35 Dose: 5 mg Documented by: Aspirin (Baby Aspirin) 81 mg PO QDAY [facility]ENDING [facility] TO [facility] Last Admin: 03/08/19 09:35 Dose: 81 mg Documented by: Atorvastatin Calcium (Lipitor) 40 mg PO QHS [facility] Last Admin: 03/07/19 21:33 Dose: 40 mg Documented by: Budesonide (Pulmicort) 0.5 mg IH Q12HRT [facility]END[facility] TO [facility] Last Admin: 03/08/19 07:33 Dose: 0.5 mg Documented by: Carvedilol (Coreg) 3.125 mg PO BID [facility]END[facility] TO [facility] Last Admin: 03/08/19 12:04 Dose: 3.125 mg Documented by: Dextrose (D50w (25gm) Syringe) 50 ml IV PRN PRN PRN Reason: Hypoglycemia Docusate Sodium (Colace) 100 mg PO BID [facility]END[facility] TO [facility] Last Admin: 03/08/19 09:34 Dose: 100 mg Documented by: Guaifenesin (Mucinex Er) 600 mg PO BID [facility]END[facility] TO [facility] Last Admin: 03/08/19 09:34 Dose: 600 mg Documented by: Hydralazine HCl (Apresoline) 100 mg PO Q8HR [facility] Last Admin: 03/08/19 06:00 Dose: 100 mg Documented by: Levofloxacin/Dextrose (Levaquin 750mg/150ml) 750 mg in 150 mls @ 150 mls/hr IV Q24HR [facility]END[facility]; Protocol Last Admin: 03/08/19 12:00 Dose: 150 mls/hr Documented by: Insulin Human Lispro (Humalog) 0 unit SUB-Q ACHS [facility]END[facility]; Protocol Last Admin: 03/08/19 12:14 Dose: Not Given Documented by: Metoclopramide HCl (Reglan) 10 mg IV Q6H PRN PRN Reason: Nausea And Vomiting Nitroglycerin (Nitrostat) 0.4 mg SL Q5M PRN PRN Reason: Chest Pain Ondansetron HCl (Zofran) 4 mg IV Q8H PRN PRN Reason: Nausea And Vomiting Oxycodone/Acetaminophen (Percocet 5/325) 1 tab PO Q4H PRN PRN Reason: Pain, Moderate (4-6) Last Admin: 03/08/19 11:10 Dose: 1 tab Documented by: Sodium Chloride (Sodium Chloride Flush Syringe 10 Ml) 10 ml IV BID [facility]END[facility] TO [facility] Last Admin: 03/08/19 11:14 Dose: 10 ml Documented by: Sodium Chloride (Sodium Chloride Flush Syringe 10 Ml) 10 ml IV PRN PRN PRN Reason: LINE FLUSH Torsemide (Demadex) 40 mg PO BID@0600,1800 PENDING SALE TO [facility] Last Admin: 03/08/19 06:00 Dose: 40 mg Documented by: Objective Vital Signs - 12hr 03/08/19 03/08/19 03/08/19 07:34 07:45 07:54 Temperature 97.2 F L Pulse Rate 98 H Pulse Rate [ 49 L 79 Posterior Bilateral Throughout] Respiratory 18 Rate Respiratory 16 18 Rate [Posterior Bilateral Throughout] Blood Pressure 103/67 O2 Sat by Pulse 96 90 Oximetry 03/08/19 03/08/19 03/08/19 11:10 11:38 12:04 Temperature 98.5 F Pulse Rate 64 106 H Pulse Rate [ Posterior Bilateral Throughout] Respiratory 18 18 Rate Respiratory Rate [Posterior Bilateral Throughout] Blood Pressure 89/52 103/67 O2 Sat by Pulse 87 Oximetry Constitutional: no acute distress, alert Eyes: non-icteric ENT: oropharynx moist Neck: supple Effort: normal Ascultation: Bilateral: clear Cardiovascular: regular rate and rhythm (no mrg) Gastrointestinal: normoactive bowel sounds, soft, non-tender, non-distended Integumentary: normal Extremities: no cyanosis Neurologic: normal mental status, non-focal exam, pupils equal and round, CN II- XII normal Psychiatric: mood appropriate, affect normal CBC and BMP: 03/07/19 03:11 03/08/19 04:37 ABG, PT/INR, D-dimer: PT/INR, D-dimer PT 15.9 Sec. (12.2-14.9) H 03/05/19 22:42 INR 1.30 (0.87-1.13) H 03/05/19 22:42 1869.29 ng/mlDDU (0-234) H 03/05/19 22:42 Abnormal lab findings: Abnormal Labs 03/05/19 03/05/19 03/05/19 22:42 22:42 22:42 Hgb 11.7 L Hct 35.1 L RDW 20.1 H [place] % (Auto) 9.3 H Baso % (Auto) 2.6 H Lymph # Baso # 0.2 H Seg Neutrophils % PT 15.9 H INR 1.30 H D-Dimer 1869.29 H Sodium Potassium 5.6 H Chloride BUN 34 H Creatinine 1.8 H Glucose 102 H POC Glucose Uric Acid HDL Cholesterol Urine Creatinine 03/06/19 03/06/19 03/06/19 02:19 02:19 05:56 Hgb Hct RDW 20.1 H [place] % (Auto) 10.1 H Baso % (Auto) Lymph # 1.1 L Baso # Seg Neutrophils % PT INR D-Dimer Sodium Potassium 3.5 L D Chloride BUN 36 H Creatinine 1.9 H Glucose POC Glucose Uric Acid HDL Cholesterol 26 L Urine Creatinine 03/06/19 03/06/19 03/06/19 09:55 11:29 16:10 Hgb Hct RDW [place] % (Auto) Baso % (Auto) Lymph # Baso # Seg Neutrophils % PT INR D-Dimer Sodium Potassium Chloride BUN Creatinine Glucose POC Glucose 107 H Uric Acid 15.2 H HDL Cholesterol Urine Creatinine 33.0 H 03/06/19 03/07/19 03/07/19 21:27 03:11 03:11 Hgb Hct RDW 19.9 H [place] % (Auto) 10.2 H Baso % (Auto) Lymph # 0.9 L Baso # Seg Neutrophils % 71.3 H PT INR D-Dimer Sodium Potassium Chloride BUN 30 H Creatinine 1.8 H Glucose 103 H POC Glucose 108 H Uric Acid HDL Cholesterol Urine Creatinine 03/07/19 03/07/19 03/07/19 11:18 17:08 20:41 Hgb Hct RDW [place] % (Auto) Baso % (Auto) Lymph # Baso # Seg Neutrophils % PT INR D-Dimer Sodium Potassium Chloride BUN Creatinine Glucose POC Glucose 118 H 117 H 107 H Uric Acid HDL Cholesterol Urine Creatinine 03/08/19 04:37 Hgb Hct RDW [place] % (Auto) Baso % (Auto) Lymph # Baso # Seg Neutrophils % PT INR D-Dimer Sodium 136 L Potassium Chloride 97.4 L BUN 27 H Creatinine 1.7 H Glucose POC Glucose Uric Acid HDL Cholesterol Urine Creatinine Chest x-ray: report reviewed, image reviewed
--- NOTE | 2019-03-08 18:10 | Progress Note ---
Assessment and Plan Assessment and plan: 53-year-old -Portuguese male patient with h/o CHF, [place] on anticoagulation with Eliquis, hypertension, diabetes, COPD, and tobacco abuse presents to [facility] ED with complaints of left-sided chest pain.Patient is on Eliquis no clear indication. Sh Patient was admitted, managed appropriately, evaluated by cardiology, medications optimized Patient had elevated d-dimer's, VQ scan intermediate probability for PE, probably due to failed Eliquis therapy versus noncompliance.Eliquis is held Patient started on Lovenox and Coumadin, with a target INR of 2-3, medical records requested from [facility]. --Intermediate probability for acute PE on VQ scan; Patient is on Eliquis at home, Will DC Eliquis, Probably failed Eliquis therapy or noncompliance. start Lovenox and Coumadin, Monitor the INR target 2-3 If renal function improves, CTA chest to rule out acute PE Ck lower ext venous Dopplerto r/o DVT --Atypical chest pain; rule out acute coronary syndrome Cardiology following, requested medical records from [facility] --Acute exacerbation of chronic combined systolic and diastolic heart failure on antifailure medications input output monitoring, low sodium diet, fluid restriction ECHO for LV function/EF -- Dilated ischemic cardiomyopathy Anti-failure medications --Chronic atrial fibrillation; rate controlled Beta blockers, chronic anticoagulation changed to Lovenox and Coumadin --Acute kidney injury; vasomotor nephropathy Avoid nephrotoxins, nephrology consulted --Essential hypertension; Continue antihypertensives, when necessary hydralazine -- Type 2 diabetes mellitus; Accu-Chek sliding scale coverage and ADA diet as needed --Chronic obstructive pulmonary disease Oxygen titrate to O2 sats more than 90%, nebulizers as needed Pulmonary following -- Presence of the ICD; stable cardiology following --DVT Prophylaxis: on lovenox Monitor closely and adjust management as needed Plan of care reviewed rabia patient and his nurse Disposition; possible discharge when INR is therapeutic History Interval history: Patient seen and examined, patient's chart Complaints of intermittent chest pain Alert awake oriented Vital signs noted Hospitalist Physical - Constitutional Vitals: Temp Pulse Resp BP Pulse Ox 98.5 F 106 H 18 103/67 87 03/08/19 11:38 03/08/19 12:04 03/08/19 11:38 03/08/19 12:04 03/08/19 11:38 General appearance: Present: no acute distress, well-nourished - EENT Eyes: Present: PERRL, EOM intact - Neck Neck: Present: supple, normal ROM - Respiratory Respiratory effort: normal Respiratory: bilateral: diminished, rales, negative: rhonchi, wheezing - Cardiovascular Rhythm: regular Heart Sounds: Present: S1 & S2 - Extremities Extremities: no ischemia, No edema - Abdominal General gastrointestinal: soft, non-tender, non-distended, normal bowel sounds - Integumentary Integumentary: Present: clear, warm - Psychiatric Psychiatric: appropriate mood/affect, cooperative - Neurologic Neurologic: moves all extremities Results - Labs CBC & Chem 7: 03/07/19 03:11 03/08/19 04:37 Labs: Laboratory Last Values WBC 6.0 K/mm3 (4.5-11.0) 03/07/19 03:11 RBC 4.12 M/mm3 (3.65-5.03) 03/07/19 03:11 Hgb 11.8 gm/dl (11.8-15.2) 03/07/19 03:11 Hct 36.0 % (35.5-45.6) 03/07/19 03:11 MCV 88 fl (84-94) 03/07/19 03:11 MCH 29 pg (28-32) 03/07/19 03:11 MCHC 33 % (32-34) 03/07/19 03:11 RDW 19.9 % (13.2-15.2) H 03/07/19 03:11 Plt Count 192 K/mm3 (140-440) 03/07/19 03:11 Lymph % (Auto) 15.0 % (13.4-35.0) 03/07/19 03:11 [place] % (Auto) 10.2 % (0.0-7.3) H 03/07/19 03:11 Eos % (Auto) 1.9 % (0.0-4.3) 03/07/19 03:11 Baso % (Auto) 1.6 % (0.0-1.8) 03/07/19 03:11 Lymph # 0.9 K/mm3 (1.2-5.4) L 03/07/19 03:11 [place] # 0.6 K/mm3 (0.0-0.8) 03/07/19 03:11 Eos # 0.1 K/mm3 (0.0-0.4) 03/07/19 03:11 Baso # 0.1 K/mm3 (0.0-0.1) 03/07/19 03:11 Seg Neutrophils % 71.3 % (40.0-70.0) H 03/07/19 03:11 Seg Neutrophils # 4.3 K/mm3 (1.8-7.7) 03/07/19 03:11 PT 15.9 Sec. (12.2-14.9) H 03/05/19 22:42 INR 1.30 (0.87-1.13) H 03/05/19 22:42 APTT 26.3 Sec. (24.2-36.6) 03/05/19 22:42 1869.29 ng/mlDDU (0-234) H 03/05/19 22:42 Sodium 136 mmol/L (137-145) L 03/08/19 04:37 Potassium 3.7 mmol/L (3.6-5.0) 03/08/19 04:37 Chloride 97.4 mmol/L (98-107) L 03/08/19 04:37 Carbon Dioxide 26 mmol/L (22-30) 03/08/19 04:37 16 mmol/L 03/08/19 04:37 BUN 27 mg/dL (9-20) H 03/08/19 04:37 1.7 mg/dL (0.8-1.5) H 03/08/19 04:37 Estimated GFR 51 ml/min 03/08/19 04:37 16 % 03/08/19 04:37 Glucose 89 mg/dL (75-100) 03/08/19 04:37 POC Glucose 101 (70-105) 03/08/19 16:26 5.6 % (4-6) 03/06/19 02:19 308 Mosm/kg 03/06/19 09:55 15.2 mg/dL (3.5-7.6) H 03/06/19 09:55 Calcium 9.1 mg/dL (8.4-10.2) 03/08/19 04:37 Magnesium 1.90 mg/dL (1.7-2.3) 03/08/19 04:37 80 units/L (55-170) 03/05/19 22:42 CK-MB (CK-2) 2.2 ng/mL (0.0-4.0) 03/05/19 22:42 CK-MB (CK-2) Rel Index 2.7 (0-4) 03/05/19 22:42 0.019 ng/mL (0.00-0.029) 03/06/19 05:56 Triglycerides 82 mg/dL (2-149) 03/06/19 05:56 Cholesterol 135 mg/dL (50-199) 03/06/19 05:56 97 mg/dL (50-130) 03/06/19 05:56 26 mg/dL (40-59) L 03/06/19 05:56 5.19 % 03/06/19 05:56 33.0 mg/dL (0.1-20.0) H 03/06/19 16:10 91 mmol/L 03/06/19 16:10 5 mg/dL (5-11.8) 03/06/19 16:10 Active Medications - Current Medications Current Medications: Generic Name Dose Route Start Last Admin Trade Name Freq PRN Reason Stop Dose Admin Acetaminophen 650 mg 03/06/19 01:58 Tylenol PO Q4H PRN Pain MILD(1-3)/Fever >100.5/TRUJILLO Albuterol 2.5 mg 03/06/19 01:58 03/08/19 07:33 Proventil IH 2.5 mg Q3HRT PRN Administration Shortness Of Breath Apixaban 5 mg 03/06/19 10:00 03/08/19 09:35 Eliquis PO 5 mg BID SOUMYA Administration Protocol Aspirin 81 mg 03/07/19 10:00 03/08/19 09:35 Baby Aspirin PO 81 mg QDAY S[facility] Administration Atorvastatin Calcium 40 mg 03/06/19 22:00 03/07/19 21:33 Lipitor PO 40 mg QHS [facility] Administration Budesonide 0.5 mg 03/06/19 08:00 03/08/19 07:33 Pulmicort IH 0.5 mg Q12HRT [facility] Administration Carvedilol 3.125 mg 03/08/19 10:00 03/08/19 12:04 Coreg PO 3.125 mg BID S[facility] Administration Dextrose 50 ml 03/06/19 02:00 D50w (25gm) Syringe IV PRN PRN Hypoglycemia Docusate Sodium 100 mg 03/06/19 10:00 03/08/19 09:34 Colace PO 100 mg BID [facility] Administration Guaifenesin 600 mg 03/06/19 10:00 03/08/19 09:34 Mucinex Er PO 600 mg BID [facility] Administration Hydralazine HCl 100 mg 03/06/19 06:00 03/08/19 06:00 Apresoline PO 100 mg Q8HR [facility] Administration Levofloxacin/Dextrose 750 mg in 150 mls @ 150 mls/hr 03/06/19 10:00 03/08/19 12:00 Levaquin 750mg/150ml IV 150 mls/hr Q24HR [facility] Administration Protocol Insulin Human Lispro 0 unit 03/06/19 07:30 03/08/19 12:14 Humalog SUB-Q Not Given ACHS [facility] Protocol Metoclopramide HCl 10 mg 03/08/19 02:23 Reglan IV Q6H PRN Nausea And Vomiting Nitroglycerin 0.4 mg 03/06/19 02:01 Nitrostat SL Q5M PRN Chest Pain Ondansetron HCl 4 mg 03/06/19 01:58 Zofran IV Q8H PRN Nausea And Vomiting Oxycodone/Acetaminophen 1 tab 03/08/19 02:43 03/08/19 11:10 Percocet 5/325 PO 1 tab Q4H PRN Administration Pain, Moderate (4-6) Sodium Chloride 10 ml 03/06/19 10:00 03/08/19 11:14 Sodium Chloride Flush Syringe 10 Ml IV 10 ml BID [facility] Administration Sodium Chloride 10 ml 03/06/19 01:58 Sodium Chloride Flush Syringe 10 Ml IV PRN PRN LINE FLUSH Torsemide 40 mg 03/06/19 06:00 03/08/19 06:00 Demadex PO 40 mg BID@0600,1800 [facility] Administration
--- NOTE | 2019-03-08 18:24 | Progress Note ---
Hospitalist Physical - Constitutional Vitals: Temp Pulse Resp BP Pulse Ox 98.5 F 106 H 18 103/67 87 03/08/19 11:38 03/08/19 12:04 03/08/19 11:38 03/08/19 12:04 03/08/19 11:38 General appearance: Present: no acute distress, well-nourished Results - Labs CBC & Chem 7: 03/07/19 03:11 03/08/19 04:37 Labs: Laboratory Last Values WBC 6.0 K/mm3 (4.5-11.0) 03/07/19 03:11 RBC 4.12 M/mm3 (3.65-5.03) 03/07/19 03:11 Hgb 11.8 gm/dl (11.8-15.2) 03/07/19 03:11 Hct 36.0 % (35.5-45.6) 03/07/19 03:11 MCV 88 fl (84-94) 03/07/19 03:11 MCH 29 pg (28-32) 03/07/19 03:11 MCHC 33 % (32-34) 03/07/19 03:11 RDW 19.9 % (13.2-15.2) H 03/07/19 03:11 Plt Count 192 K/mm3 (140-440) 03/07/19 03:11 Lymph % (Auto) 15.0 % (13.4-35.0) 03/07/19 03:11 [place] % (Auto) 10.2 % (0.0-7.3) H 03/07/19 03:11 Eos % (Auto) 1.9 % (0.0-4.3) 03/07/19 03:11 Baso % (Auto) 1.6 % (0.0-1.8) 03/07/19 03:11 Lymph # 0.9 K/mm3 (1.2-5.4) L 03/07/19 03:11 [place] # 0.6 K/mm3 (0.0-0.8) 03/07/19 03:11 Eos # 0.1 K/mm3 (0.0-0.4) 03/07/19 03:11 Baso # 0.1 K/mm3 (0.0-0.1) 03/07/19 03:11 Seg Neutrophils % 71.3 % (40.0-70.0) H 03/07/19 03:11 Seg Neutrophils # 4.3 K/mm3 (1.8-7.7) 03/07/19 03:11 PT 15.9 Sec. (12.2-14.9) H 03/05/19 22:42 INR 1.30 (0.87-1.13) H 03/05/19 22:42 APTT 26.3 Sec. (24.2-36.6) 03/05/19 22:42 1869.29 ng/mlDDU (0-234) H 03/05/19 22:42 Sodium 136 mmol/L (137-145) L 03/08/19 04:37 Potassium 3.7 mmol/L (3.6-5.0) 03/08/19 04:37 Chloride 97.4 mmol/L (98-107) L 03/08/19 04:37 Carbon Dioxide 26 mmol/L (22-30) 03/08/19 04:37 16 mmol/L 03/08/19 04:37 BUN 27 mg/dL (9-20) H 03/08/19 04:37 1.7 mg/dL (0.8-1.5) H 03/08/19 04:37 Estimated GFR 51 ml/min 03/08/19 04:37 16 % 03/08/19 04:37 Glucose 89 mg/dL (75-100) 03/08/19 04:37 POC Glucose 101 (70-105) 03/08/19 16:26 5.6 % (4-6) 03/06/19 02:19 308 Mosm/kg 03/06/19 09:55 15.2 mg/dL (3.5-7.6) H 03/06/19 09:55 Calcium 9.1 mg/dL (8.4-10.2) 03/08/19 04:37 Magnesium 1.90 mg/dL (1.7-2.3) 03/08/19 04:37 80 units/L (55-170) 03/05/19 22:42 CK-MB (CK-2) 2.2 ng/mL (0.0-4.0) 03/05/19 22:42 CK-MB (CK-2) Rel Index 2.7 (0-4) 03/05/19 22:42 0.019 ng/mL (0.00-0.029) 03/06/19 05:56 Triglycerides 82 mg/dL (2-149) 03/06/19 05:56 Cholesterol 135 mg/dL (50-199) 03/06/19 05:56 97 mg/dL (50-130) 03/06/19 05:56 26 mg/dL (40-59) L 03/06/19 05:56 5.19 % 03/06/19 05:56 33.0 mg/dL (0.1-20.0) H 03/06/19 16:10 91 mmol/L 03/06/19 16:10 5 mg/dL (5-11.8) 03/06/19 16:10 Active Medications - Current Medications Current Medications: Generic Name Dose Route Start Last Admin Trade Name Freq PRN Reason Stop Dose Admin Acetaminophen 650 mg 03/06/19 01:58 Tylenol PO Q4H PRN Pain MILD(1-3)/Fever >100.5/TRUJILLO Albuterol 2.5 mg 03/06/19 01:58 03/08/19 07:33 Proventil IH 2.5 mg Q3HRT PRN Administration Shortness Of Breath Aspirin 81 mg 03/07/19 10:00 03/08/19 09:35 Baby Aspirin PO 81 mg QDAY [facility] Administration Atorvastatin Calcium 40 mg 03/06/19 22:00 03/07/19 21:33 Lipitor PO 40 mg QHS [facility] Administration Budesonide 0.5 mg 03/06/19 08:00 03/08/19 07:33 Pulmicort IH 0.5 mg Q12HRT [facility] Administration Carvedilol 3.125 mg 03/08/19 10:00 03/08/19 12:04 Coreg PO 3.125 mg BID [facility] Administration Dextrose 50 ml 03/06/19 02:00 D50w (25gm) Syringe IV PRN PRN Hypoglycemia Docusate Sodium 100 mg 03/06/19 10:00 03/08/19 09:34 Colace PO 100 mg BID [facility] Administration Enoxaparin Sodium 90 mg 03/08/19 22:00 Lovenox 1 mg/kg (90 mg) SUB-Q Q12HR [facility] Guaifenesin 600 mg 03/06/19 10:00 03/08/19 09:34 Mucinex Er PO 600 mg BID S[facility] Administration Hydralazine HCl 100 mg 03/06/19 06:00 03/08/19 06:00 Apresoline PO 100 mg Q8HR [facility] Administration Levofloxacin/Dextrose 750 mg in 150 mls @ 150 mls/hr 03/06/19 10:00 03/08/19 12:00 Levaquin 750mg/150ml IV 150 mls/hr Q24HR [facility] Administration Protocol Insulin Human Lispro 0 unit 03/06/19 07:30 03/08/19 12:14 Humalog SUB-Q Not Given ACHS [facility] Protocol Metoclopramide HCl 10 mg 03/08/19 02:23 Reglan IV Q6H PRN Nausea And Vomiting Nitroglycerin 0.4 mg 03/06/19 02:01 Nitrostat SL Q5M PRN Chest Pain Ondansetron HCl 4 mg 03/06/19 01:58 Zofran IV Q8H PRN Nausea And Vomiting Oxycodone/Acetaminophen 1 tab 03/08/19 02:43 03/08/19 11:10 Percocet 5/325 PO 1 tab Q4H PRN Administration Pain, Moderate (4-6) Sodium Chloride 10 ml 03/06/19 10:00 03/08/19 11:14 Sodium Chloride Flush Syringe 10 Ml IV 10 ml BID [facility] Administration Sodium Chloride 10 ml 03/06/19 01:58 Sodium Chloride Flush Syringe 10 Ml IV PRN PRN LINE FLUSH Torsemide 40 mg 03/06/19 06:00 03/08/19 06:00 Demadex PO 40 mg BID@0600,1800 [facility] Administration Warfarin Sodium 5 mg 03/09/19 17:00 Coumadin PO 1700 [facility] Protocol
--- NOTE | 2019-03-08 19:39 | Vascular Lab Report ---
VL venous duplex LE BILAT INDICATION / CLINICAL INFORMATION: elevated d dimers /intermediate probability for PE. COMPARISON: None available. FINDINGS: No evidence of deep vein thrombosis in either leg. IMPRESSION: 1. Negative for deep vein thrombosis. Signer Name: Rafat Yeung MD Signed: 03/08/2019 7:34 PM Workstation Name: [email or web address]
--- NOTE | 2019-03-08 20:14 | Cat Scan Report ---
CT chest wo con INDICATION: Chest pain, Chronic tobacco abuse, Ateletasis. TECHNIQUE: All CT scans at this location are performed using CT dose reduction for ALARA by means of automated e xposure control. COMPARISON: None available. FINDINGS: Very large right pleural effusion, with atelectasis of most of the right lower lobe. No endobronchial lesion and no obvious hilar mass. There are numerous small pretracheal and aortopulmonary nodes. Left lung and right upper lung appear clear of acute disease. No skeletal lesions. IMPRESSION: 1. Very large right pleural effusion, with subsequent atelectasis of much of the right lung. Etiology of the effusion is not known. No appreciable mass or endobronchial obstruction. Numerous small pretracheal and aortopulmonary nodes are most likely inflammatory. Signer Name: Rafat Yeung MD Signed: 03/08/2019 8:09 PM Workstation Name: [id number]
[2019-03-08] MEDS: LOVENOX SUB-Q SCH (22:07)
[2019-03-09] MEDS: PERCOCET 5/325 PO PRN ×5 (01:00→22:27)
[2019-03-09] MEDS: DEMADEX PO SCH ×3 (05:38→17:27)
[2019-03-09] MEDS: APRESOLINE PO SCH ×3 (05:38→22:21)
[2019-03-09 07:43] LABS: Basophils # (Auto) 0.1 K/mm3 (0.0-0.1); Basophils % (Auto) 1.9 % (0.0-1.8); Eosinophils # (Auto) 0.1 K/mm3 (0.0-0.4); Eosinophils % (Auto) 2.3 % (0.0-4.3); Hematocrit 35.7 % (35.5-45.6); Hemoglobin 11.7 gm/dl (11.8-15.2); Lymphocytes # (Auto) 1.1 K/mm3 (1.2-5.4); Lymphocytes % (Auto) 18.1 % (13.4-35.0); Mean Corpuscular HGB Conc 33 % (32-34); Mean Corpuscular Volume 87 fl (84-94); Monocytes # (Auto) 0.7 K/mm3 (0.0-0.8); Monocytes % (Auto) 12.9 % (0.0-7.3); Platelet Count 191 K/mm3 (140-440); Red Cell Distribution Width 19.9 % (13.2-15.2)
[2019-03-09 07:53] LABS: INR 1.48 (0.87-1.13)
[2019-03-09] MEDS: PROVENTIL IH PRN (07:56)
[2019-03-09] MEDS: PULMICORT IH SCH ×2 (07:56→21:29)
[2019-03-09 08:14] LABS: Calcium 9.2 mg/dL (8.4-10.2)
--- NOTE | 2019-03-09 09:43 | Progress Note ---
Assessment and Plan Impression 1. Chronic combined systolic and diastolic heart failure 2. Chronic atrial fibrillation 3. Dilated ischemic cardiomyopathy 4. Essential hypertension 5. Type 2 diabetes mellitus 6. Chronic obstructive pulmonary disease 7. Presence of the ICD 8. CKD stage 3 9. Pleural effusion Plan His renal function is stable. Serum creatinine is now 1.8. Most likely at baseline. Patient does have knowledge of prior renal dysfun ction. 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 Renal ultrasound consistent with chronic kidney disease. cards and pulm condition noted strict i/os daily lytes Reduce diuretics ok to dc from renal standpoint Subjective Date of service: 03/09/19 Principal diagnosis: ckd 3 Interval history: Patient is comfortable today. His shortness of breath is better. Denies any nausea or vomiting. Objective - Vital Signs Vital signs: Vital Signs - 12hr 03/08/19 03/09/19 03/09/19 22:00 00:16 04:00 Temperature 97.9 F Pulse Rate 94 H 77 77 Pulse Rate [ Anterior Bilateral Throughout] Pulse Rate [ Apical] Respiratory 16 Rate Respiratory Rate [Anterior Bilateral Throughout] Blood Pressure 107/79 Blood Pressure [Right] O2 Sat by Pulse 93 97 Oximetry 03/09/19 03/09/19 03/09/19 04:19 07:25 07:56 Temperature 97.2 F L 98.1 F Pulse Rate 79 Pulse Rate [ 86 Anterior Bilateral Throughout] Pulse Rate [ Apical] Respiratory 16 18 Rate Respiratory 18 Rate [Anterior Bilateral Throughout] Blood Pressure 117/89 Blood Pressure 106/68 [Right] O2 Sat by Pulse 99 96 Oximetry 03/09/19 03/09/19 08:15 08:20 Temperature Pulse Rate 81 Pulse Rate [ 85 Anterior Bilateral Throughout] Pulse Rate [ 81 Apical] Respiratory Rate Respiratory 18 Rate [Anterior Bilateral Throughout] Blood Pressure Blood Pressure [Right] O2 Sat by Pulse Oximetry - General Appearance General appearance: well-developed, well-nourished, appears stated age EENT: PERRL, mucous membranes moist Neck: no JVD, no thyromegaly, no carotid bruit, supple Respiratory: Present: Clear to Ascultation Cardiology: irregular, normal heart rate, S1S2, no murmurs Gastrointestinal: normal, normoactive bowel sounds Integumentary: no rash, other (no edema) - Lab 03/09/19 07:25 03/09/19 07:25 Most recent lab results Calcium 9.2 mg/dL (8.4-10.2) 03/09/19 07:25 Magnesium 1.90 mg/dL (1.7-2.3) 03/08/19 04:37 33.0 mg/dL (0.1-20.0) H 03/06/19 16:10 91 mmol/L 03/06/19 16:10 5 mg/dL (5-11.8) 03/06/19 16:10 Medications & Allergies - Medications Allergies/Adverse Reactions: Allergies Penicillins Allergy (Verified 03/05/19 22:41) Itching strawberry Allergy (Verified 03/05/19 22:41) Hives Home Medications: Home Medications Medication Instructions Recorded Confirmed Last Taken Type Apixaban [Eliquis] 1 tab PO BID 03/05/19 03/05/19 Unknown History Clindamycin [Clindamycin CAP] 150 mg PO TID 03/05/19 03/05/19 Unknown History Lisinopril [Zestril TAB] 1 tab PO DAILY 03/05/19 03/05/19 Unknown History Torsemide [Demadex] 2 tab PO BID 03/05/19 03/05/19 Unknown History hydrALAZINE [Apresoline TAB] 1 tab PO Q8HR 03/05/19 03/05/19 Unknown History Active Medications: Generic Name Dose Route Start Last Admin Trade Name Freq PRN Reason Stop Dose Admin Acetaminophen 650 mg 03/06/19 01:58 Tylenol PO Q4H PRN Pain MILD(1-3)/Fever >100.5/TRUJILLO Albuterol 2.5 mg 03/06/19 01:58 03/09/19 07:56 Proventil IH 2.5 mg Q3HRT PRN Administration Shortness Of Breath Aspirin 81 mg 03/07/19 10:00 03/08/19 09:35 Baby Aspirin PO 81 mg QDAY [facility] Administration Atorvastatin Calcium 40 mg 03/06/19 22:00 03/08/19 22:07 Lipitor PO 40 mg QHS [facility] Administration Budesonide 0.5 mg 03/06/19 08:00 03/09/19 07:56 Pulmicort IH 0.5 mg Q12HRT [facility] Administration Carvedilol 3.125 mg 03/08/19 10:00 03/08/19 22:07 Coreg PO 3.125 mg BID [facility] Administration Dextrose 50 ml 03/06/19 02:00 D50w (25gm) Syringe IV PRN PRN Hypoglycemia Docusate Sodium 100 mg 03/06/19 10:00 03/08/19 22:55 Colace PO Not Given BID [facility] Enoxaparin Sodium 90 mg 03/08/19 22:00 03/08/19 22:07 Lovenox 1 mg/kg (90 mg) 90 mg SUB-Q Administration Q12HR [facility] Guaifenesin 600 mg 03/06/19 10:00 03/08/19 22:07 Mucinex Er PO 600 mg BID [facility] Administration Hydralazine HCl 100 mg 03/06/19 06:00 03/09/19 05:38 Apresoline PO 100 mg Q8HR [facility] Administration Levofloxacin/Dextrose 750 mg in 150 mls @ 150 mls/hr 03/06/19 10:00 03/08/19 12:00 Levaquin 750mg/150ml IV 150 mls/hr Q24HR [facility] Administration Protocol Insulin Human Lispro 0 unit 03/06/19 07:30 03/08/19 22:06 [facility] Protocol Metoclopramide HCl 10 mg 03/08/19 02:23 Reglan IV Q6H PRN Nausea And Vomiting Nitroglycerin 0.4 mg 03/06/19 02:01 Nitrostat SL Q5M PRN Chest Pain Ondansetron HCl 4 mg 03/06/19 01:58 Zofran IV Q8H PRN Nausea And Vomiting Oxycodone/Acetaminophen 1 tab 03/08/19 02:43 03/09/19 05:38 Percocet 5/325 PO 1 tab Q4H PRN Administration Pain, Moderate (4-6) Sodium Chloride 10 ml 03/06/19 10:00 03/08/19 22:08 Sodium Chloride Flush Syringe 10 Ml IV Not Given BID [facility] Sodium Chloride 10 ml 03/06/19 01:58 Sodium Chloride Flush Syringe 10 Ml IV PRN PRN LINE FLUSH Torsemide 40 mg 03/06/19 06:00 03/09/19 05:38 Demadex PO 40 mg BID@0600,1800 [facility] Administration Warfarin Sodium 7.5 mg 03/09/19 17:00 Coumadin PO DAILY@1700 [facility]
[2019-03-09] MEDS: COLACE PO SCH ×2 (10:14→22:21)
[2019-03-09] MEDS: COREG PO SCH ×2 (10:14→22:21)
[2019-03-09] MEDS: BABY ASPIRIN PO SCH (10:14)
[2019-03-09] MEDS: LEVAQUIN 750MG/150ML 750 MG/150 ML BAG IV SCH (10:14)
[2019-03-09] MEDS: MUCINEX ER PO SCH ×2 (10:14→22:21)
[2019-03-09] MEDS: SODIUM CHLORIDE FLUSH SYRINGE 10 ML IV SCH ×2 (10:15→22:22)
[2019-03-09] MEDS: HumaLOG SUB-Q SCH ×4 (10:15→22:22)
[2019-03-09] MEDS: LOVENOX SUB-Q SCH (10:15)
--- NOTE | 2019-03-09 12:28 | Progress Note ---
Assessment and Plan Right Pleural effusion VQ scan reports intermediate probability for PE. Patient reports compliance of Eliquis as an outpatient. Chest pain, atypical Chronic systolic heart failure Chronic atrial fibrillation Eliquis has been stopped and instead changed to warfarin for oral anticoagulation. Hx of Nonischemic cardiomyopathy pt reports recent negative LHC at [place] 3 months ago EF 15-20% by echo 11/2018 Presence of the ICD Essential hypertension Type 2 diabetes mellitus Chronic obstructive pulmonary disease CKD Recommend: Medical therapy for nonischemic cardiomyopathy and chronic atrial fibrillation as tolerated. Subjective Date of service: 03/09/19 Principal diagnosis: ckd 3 Interval history: Patient denies shortness of breath and chest pain. Objective Vital Signs Temp Pulse Pulse Pulse Pulse Resp Resp 03/09/19 08:20 81 81 03/09/19 08:15 85 18 03/09/19 07:56 86 18 03/09/19 07:25 98.1 F 79 18 03/09/19 04:19 97.2 F L 16 03/09/19 04:00 77 03/09/19 00:16 97.9 F 77 16 03/08/19 22:00 94 H 03/08/19 21:32 75 20 03/08/19 21:00 97.6 F 03/08/19 20:09 81 03/08/19 20:02 52 L 03/08/19 16:18 97.6 F 46 L 18 03/08/19 13:11 98.0 F 63 20 Resp BP BP Pulse Ox 03/09/19 08:20 03/09/19 08:15 03/09/19 07:56 96 03/09/19 07:25 106/68 99 03/09/19 04:19 117/89 03/09/19 04:00 97 03/09/19 00:16 107/79 93 03/08/19 22:00 03/08/19 21:32 128/89 93 03/08/19 21:00 03/08/19 20:09 18 03/08/19 20:02 18 96 03/08/19 16:18 109/79 91 03/08/19 13:11 110/83 96 - Physical Examination General: No Apparent Distress HEENT: Positive: PERRL Neck: Positive: neck supple Cardiac: Positive: irregularly irregular Lungs: Positive: Decreased Breath Sounds Neuro: Positive: Grossly Intact Extremities: Absent: edema - Labs and Meds Coagulation 03/09/19 Range/Units 07:25 PT 17.6 H (12.2-14.9) Sec. INR 1.48 H (0.87-1.13) CBC 03/09/19 Range/Units 07:25 WBC 5.8 (4.5-11.0) K/mm3 RBC 4.10 (3.65-5.03) M/mm3 Hgb 11.7 L (11.8-15.2) gm/dl Hct 35.7 (35.5-45.6) % Plt Count 191 (140-440) K/mm3 Lymph # 1.1 L (1.2-5.4) K/mm3 [place] # 0.7 (0.0-0.8) K/mm3 Eos # 0.1 (0.0-0.4) K/mm3 Baso # 0.1 (0.0-0.1) K/mm3 Comprehensive Metabolic Panel 03/09/19 Range/Units 07:25 Sodium 137 (137-145) mmol/L Potassium 3.7 (3.6-5.0) mmol/L Chloride 95.4 L (98-107) mmol/L Carbon Dioxide 26 (22-30) mmol/L BUN 28 H (9-20) mg/dL Creatinine 1.8 H (0.8-1.5) mg/dL Glucose 87 (75-100) mg/dL Calcium 9.2 (8.4-10.2) mg/dL
--- NOTE | 2019-03-09 13:29 | Progress Note ---
Assessment and Plan Imp: 1. Pleural effusion on R of ? etiology 2. Chronic nicotine dependence, cigarettes 3. NICMP 4. Chronic systolic CHF 5. ESTEVAN Rec: 1. Cont. Levaquin for now 2. Doubt PE on Eliquis; V/Q results not helpful 3. Diagnostic and therapeutic thoracentesis in AM, he agrees; hold PM Coumadin and AM Lovenox for the same 4. Stop smoking, counseled 5. Will f/u after thora Plan of care reviewed w/ patient, he understands/agrees Subjective Date of service: 03/09/19 Principal diagnosis: ckd 3 Interval history: No events. Still with chest pain, L anterior chest. + SOB. On RA. Active Medications Acetaminophen (Tylenol) 650 mg PO Q4H PRN PRN Reason: Pain MILD(1-3)/Fever >100.5/TRUJILLO Albuterol (Proventil) 2.5 mg IH Q3HRT PRN PRN Reason: Shortness Of Breath Last Admin: 03/08/19 07:33 Dose: 2.5 mg Documented by: Apixaban (Eliquis) 5 mg PO BID [facility]; Protocol Last Admin: 03/08/19 09:35 Dose: 5 mg Documented by: Aspirin (Baby Aspirin) 81 mg PO QDAY [facility] Last Admin: 03/08/19 09:35 Dose: 81 mg Documented by: Atorvastatin Calcium (Lipitor) 40 mg PO QHS [facility] Last Admin: 03/07/19 21:33 Dose: 40 mg Documented by: Budesonide (Pulmicort) 0.5 mg IH Q12HRT [facility] Last Admin: 03/08/19 07:33 Dose: 0.5 mg Documented by: Carvedilol (Coreg) 3.125 mg PO BID [facility] Last Admin: 03/08/19 12:04 Dose: 3.125 mg Documented by: Dextrose (D50w (25gm) Syringe) 50 ml IV PRN PRN PRN Reason: Hypoglycemia Docusate Sodium (Colace) 100 mg PO BID [facility] Last Admin: 03/08/19 09:34 Dose: 100 mg Documented by: Guaifenesin (Mucinex Er) 600 mg PO BID [facility] Last Admin: 03/08/19 09:34 Dose: 600 mg Documented by: Hydralazine HCl (Apresoline) 100 mg PO Q8HR [facility] Last Admin: 03/08/19 06:00 Dose: 100 mg Documented by: Levofloxacin/Dextrose (Levaquin 750mg/150ml) 750 mg in 150 mls @ 150 mls/hr IV Q24HR [facility]; Protocol Last Admin: 03/08/19 12:00 Dose: 150 mls/hr Documented by: Insulin Human Lispro (Humalog) 0 unit SUB-Q ACHS [facility]; Protocol Last Admin: 03/08/19 12:14 Dose: Not Given Documented by: Metoclopramide HCl (Reglan) 10 mg IV Q6H PRN PRN Reason: Nausea And Vomiting Nitroglycerin (Nitrostat) 0.4 mg SL Q5M PRN PRN Reason: Chest Pain Ondansetron HCl (Zofran) 4 mg IV Q8H PRN PRN Reason: Nausea And Vomiting Oxycodone/Acetaminophen (Percocet 5/325) 1 tab PO Q4H PRN PRN Reason: Pain, Moderate (4-6) Last Admin: 03/08/19 11:10 Dose: 1 tab Documented by: Sodium Chloride (Sodium Chloride Flush Syringe 10 Ml) 10 ml IV BID [facility] Last Admin: 03/08/19 11:14 Dose: 10 ml Documented by: Sodium Chloride (Sodium Chloride Flush Syringe 10 Ml) 10 ml IV PRN PRN PRN Reason: LINE FLUSH Torsemide (Demadex) 40 mg PO BID@0600,1800 [facility] Last Admin: 03/08/19 06:00 Dose: 40 mg Documented by: Objective Vital Signs - 12hr 03/09/19 03/09/19 03/09/19 04:00 04:19 07:25 Temperature 97.2 F L 98.1 F Pulse Rate 77 79 Pulse Rate [ Anterior Bilateral Throughout] Pulse Rate [ Apical] Respiratory 16 18 Rate Respiratory Rate [Anterior Bilateral Throughout] Blood Pressure 117/89 Blood Pressure 106/68 [Right] O2 Sat by Pulse 97 99 Oximetry 03/09/19 03/09/19 03/09/19 07:56 08:15 08:20 Temperature Pulse Rate 81 Pulse Rate [ 86 85 Anterior Bilateral Throughout] Pulse Rate [ 81 Apical] Respiratory Rate Respiratory 18 18 Rate [Anterior Bilateral Throughout] Blood Pressure Blood Pressure [Right] O2 Sat by Pulse 96 Oximetry Constitutional: no acute distress, alert Eyes: non-icteric ENT: oropharynx moist Neck: supple Effort: normal Ascultation: Right: diminished breath sounds, Bilateral: rhonchi (rare) Cardiovascular: regular rate and rhythm (no mrg) Gastrointestinal: normoactive bowel sounds, soft, non-tender, non-distended Integumentary: normal Extremities: no cyanosis Neurologic: normal mental status, non-focal exam, pupils equal and round, CN II- XII normal Psychiatric: mood appropriate, affect normal CBC and BMP: 03/09/19 07:25 03/09/19 07:25 ABG, PT/INR, D-dimer: PT/INR, D-dimer PT 17.6 Sec. (12.2-14.9) H 03/09/19 07:25 INR 1.48 (0.87-1.13) H 03/09/19 07:25 1869.29 ng/mlDDU (0-234) H 03/05/19 22:42 Abnormal lab findings: Abnormal Labs 03/05/19 03/05/19 03/05/19 22:42 22:42 22:42 Hgb 11.7 L Hct 35.1 L RDW 20.1 H [place] % (Auto) 9.3 H Baso % (Auto) 2.6 H Lymph # Baso # 0.2 H Seg Neutrophils % PT 15.9 H INR 1.30 H D-Dimer 1869.29 H Sodium Potassium 5.6 H Chloride BUN 34 H Creatinine 1.8 H Glucose 102 H POC Glucose Uric Acid HDL Cholesterol Urine Creatinine 03/06/19 03/06/19 03/06/19 02:19 02:19 05:56 Hgb Hct RDW 20.1 H [place] % (Auto) 10.1 H Baso % (Auto) Lymph # 1.1 L Baso # Seg Neutrophils % PT INR D-Dimer Sodium Potassium 3.5 L D Chloride BUN 36 H Creatinine 1.9 H Glucose POC Glucose Uric Acid HDL Cholesterol 26 L Urine Creatinine 03/06/19 03/06/19 03/06/19 09:55 11:29 16:10 Hgb Hct RDW [place] % (Auto) Baso % (Auto) Lymph # Baso # Seg Neutrophils % PT INR D-Dimer Sodium Potassium Chloride BUN Creatinine Glucose POC Glucose 107 H Uric Acid 15.2 H HDL Cholesterol Urine Creatinine 33.0 H 03/06/19 03/07/19 03/07/19 21:27 03:11 03:11 Hgb Hct RDW 19.9 H [place] % (Auto) 10.2 H Baso % (Auto) Lymph # 0.9 L Baso # Seg Neutrophils % 71.3 H PT INR D-Dimer Sodium Potassium Chloride BUN 30 H Creatinine 1.8 H Glucose 103 H POC Glucose 108 H Uric Acid HDL Cholesterol Urine Creatinine 03/07/19 03/07/19 03/07/19 11:18 17:08 20:41 Hgb Hct RDW [place] % (Auto) Baso % (Auto) Lymph # Baso # Seg Neutrophils % PT INR D-Dimer Sodium Potassium Chloride BUN Creatinine Glucose POC Glucose 118 H 117 H 107 H Uric Acid HDL Cholesterol Urine Creatinine 03/08/19 03/09/19 03/09/19 04:37 07:25 07:25 Hgb 11.7 L Hct RDW 19.9 H [place] % (Auto) 12.9 H Baso % (Auto) 1.9 H Lymph # 1.1 L Baso # Seg Neutrophils % PT 17.6 H INR 1.48 H D-Dimer Sodium 136 L Potassium Chloride 97.4 L BUN 27 H Creatinine 1.7 H Glucose POC Glucose Uric Acid HDL Cholesterol Urine Creatinine 03/09/19 07:25 Hgb Hct RDW [place] % (Auto) Baso % (Auto) Lymph # Baso # Seg Neutrophils % PT INR D-Dimer Sodium Potassium Chloride 95.4 L BUN 28 H Creatinine 1.8 H Glucose POC Glucose Uric Acid HDL Cholesterol Urine Creatinine Chest x-ray: report reviewed, image reviewed CT scan - chest: report reviewed, image reviewed (large R effusion with compressive atelectasis)
--- NOTE | 2019-03-09 14:40 | Progress Note ---
Assessment and Plan Assessment and plan: 53-year-old -[place] male patient with h/o CHF, [place] on anticoagulation with Eliquis, hypertension, diabetes, COPD, and tobacco abuse presents to [facility] ED with complaints of left- sided chest pain.Patient is on Eliquis no clear indication.Patient was admitted, managed appropriately, evaluated by cardiology, medications optimized Patient had elevated d-dimer's, VQ scan intermediate probability for PE, probably due to failed Eliquis therapy versus noncompliance.Eliquis is held Patient started on Lovenox and Coumadin, with a target INR of 2-3, medical records requested from [facility]. --Large pleural effusion ;Right-side; on CT chest Possible ultrasound-guided thoracentesis tomorrow Pulmonary following --Intermediate probability for acute PE on VQ scan; Lovenox and Coumadin and not particularly the If renal function improves, CTA chest to rule out acute PE Ck lower ext venous Dopplerto r/o DVT --Atypical chest pain; rule out acute coronary syndrome Cardiology following, requested medical records from [facility] --Acute exacerbation of chronic combined systolic and diastolic heart failure on antifailure medications input output monitoring, low sodium diet, fluid rest riction ECHO for LV function/EF -- Dilated ischemic cardiomyopathy Anti-failure medications --Chronic atrial fibrillation; rate controlled Beta blockers, chronic anticoagulation changed to Lovenox and Coumadin --Acute kidney injury; vasomotor nephropathy Avoid nephrotoxins, nephrology consulted --Essential hypertension; Continue antihypertensives, when necessary hydralazine -- Type 2 diabetes mellitus; Accu-Chek sliding scale coverage and ADA diet as needed --Chronic obstructive pulmonary disease Oxygen titrate to O2 sats more than 90%, nebulizers as needed Pulmonary following -- Presence of the ICD; stable cardiology following --DVT Prophylaxis: on lovenox Monitor closely and adjust management as needed Plan of care reviewed rabia patient and his nurse Disposition; follow thoracentesis tomorrow History Interval history: Patient seen and examined and chart reviewed Patient feels better no new complaints Large pleural effusion Possible CT/ultrasound guided aspiration Patient denies chest pain or shortness of breath Vital signs noted Hospitalist Physical - Constitutional Vitals: Temp Pulse Resp BP Pulse Ox 98.1 F 81 18 106/68 96 03/09/19 07:25 03/09/19 08:20 03/09/19 08:15 03/09/19 07:25 03/09/19 07:56 General appearance: Present: no acute distress, well-nourished - EENT Eyes: Present: PERRL, EOM intact - Neck Neck: Present: supple, normal ROM - Respiratory Respiratory effort: normal Respiratory: bilateral: diminished (right more than left), rhonchi, negative: ra les, wheezing - Cardiovascular Rhythm: regular Heart Sounds: Present: S1 & S2 - Extremities Extremities: no ischemia, No edema - Abdominal General gastrointestinal: soft, non-tender, non-distended, normal bowel sounds - Integumentary Integumentary: Present: clear, warm - Psychiatric Psychiatric: appropriate mood/affect, cooperative - Neurologic Neurologic: CNII-XII intact, moves all extremities Results - Labs CBC & Chem 7: 03/09/19 07:25 03/09/19 07:25 Labs: Laboratory Last Values WBC 5.8 K/mm3 (4.5-11.0) 03/09/19 07:25 RBC 4.10 M/mm3 (3.65-5.03) 03/09/19 07:25 Hgb 11.7 gm/dl (11.8-15.2) L 03/09/19 07:25 Hct 35.7 % (35.5-45.6) 03/09/19 07:25 MCV 87 fl (84-94) 03/09/19 07:25 MCH 29 pg (28-32) 03/09/19 07:25 MCHC 33 % (32-34) 03/09/19 07:25 RDW 19.9 % (13.2-15.2) H 03/09/19 07:25 Plt Count 191 K/mm3 (140-440) 03/09/19 07:25 Lymph % (Auto) 18.1 % (13.4-35.0) 03/09/19 07:25 [place] % (Auto) 12.9 % (0.0-7.3) H 03/09/19 07:25 Eos % (Auto) 2.3 % (0.0-4.3) 03/09/19 07:25 Baso % (Auto) 1.9 % (0.0-1.8) H 03/09/19 07:25 Lymph # 1.1 K/mm3 (1.2-5.4) L 03/09/19 07:25 [place] # 0.7 K/mm3 (0.0-0.8) 03/09/19 07:25 Eos # 0.1 K/mm3 (0.0-0.4) 03/09/19 07:25 Baso # 0.1 K/mm3 (0.0-0.1) 03/09/19 07:25 Seg Neutrophils % 64.8 % (40.0-70.0) 03/09/19 07:25 Seg Neutrophils # 3.8 K/mm3 (1.8-7.7) 03/09/19 07:25 PT 17.6 Sec. (12.2-14.9) H 03/09/19 07:25 INR 1.48 (0.87-1.13) H 03/09/19 07:25 APTT 26.3 Sec. (24.2-36.6) 03/05/19 22:42 1869.29 ng/mlDDU (0-234) H 03/05/19 22:42 Sodium 137 mmol/L (137-145) 03/09/19 07:25 Potassium 3.7 mmol/L (3.6-5.0) 03/09/19 07:25 Chloride 95.4 mmol/L (98-107) L 03/09/19 07:25 Carbon Dioxide 26 mmol/L (22-30) 03/09/19 07:25 19 mmol/L 03/09/19 07:25 BUN 28 mg/dL (9-20) H 03/09/19 07:25 1.8 mg/dL (0.8-1.5) H 03/09/19 07:25 Estimated GFR 48 ml/min 03/09/19 07:25 16 % 03/09/19 07:25 Glucose 87 mg/dL (75-100) 03/09/19 07:25 POC Glucose 124 (70-105) H 03/09/19 11:48 5.6 % (4-6) 03/06/19 02:19 308 Mosm/kg 03/06/19 09:55 15.2 mg/dL (3.5-7.6) H 03/06/19 09:55 Calcium 9.2 mg/dL (8.4-10.2) 03/09/19 07:25 Magnesium 1.90 mg/dL (1.7-2.3) 03/08/19 04:37 80 units/L (55-170) 03/05/19 22:42 CK-MB (CK-2) 2.2 ng/mL (0.0-4.0) 03/05/19 22:42 CK-MB (CK-2) Rel Index 2.7 (0-4) 03/05/19 22:42 0.019 ng/mL (0.00-0.029) 03/06/19 05:56 Triglycerides 82 mg/dL (2-149) 03/06/19 05:56 Cholesterol 135 mg/dL (50-199) 03/06/19 05:56 97 mg/dL (50-130) 03/06/19 05:56 26 mg/dL (40-59) L 03/06/19 05:56 5.19 % 03/06/19 05:56 33.0 mg/dL (0.1-20.0) H 03/06/19 16:10 91 mmol/L 03/06/19 16:10 5 mg/dL (5-11.8) 03/06/19 16:10 Active Medications - Current Medications Current Medications: Generic Name Dose Route Start Last Admin Trade Name Freq PRN Reason Stop Dose Admin Acetaminophen 650 mg 03/06/19 01:58 Tylenol PO Q4H PRN Pain MILD(1-3)/Fever >100.5/TRUJILLO Albuterol 2.5 mg 03/06/19 01:58 03/09/19 07:56 Proventil IH 2.5 mg Q3HRT PRN Administration Shortness Of Breath Aspirin 81 mg 03/07/19 10:00 03/09/19 10:14 Baby Aspirin PO 81 mg QDAY S[facility] Administration Atorvastatin Calcium 40 mg 03/06/19 22:00 03/08/19 22:07 Lipitor PO 40 mg QHS [facility] Administration Budesonide 0.5 mg 03/06/19 08:00 03/09/19 07:56 Pulmicort IH 0.5 mg Q12HRT [facility] Administration Carvedilol 3.125 mg 03/08/19 10:00 03/09/19 10:14 Coreg PO 3.125 mg BID [facility] Administration Dextrose 50 ml 03/06/19 02:00 D50w (25gm) Syringe IV PRN PRN Hypoglycemia Docusate Sodium 100 mg 03/06/19 10:00 03/09/19 10:14 Colace PO 100 mg BID ON [facility] OF [facility] Administration Enoxaparin Sodium 90 mg 03/08/19 22:00 03/09/19 10:15 Lovenox 1 mg/kg (90 mg) 90 mg SUB-Q Administration Q12HR ON LICENSE OF [facility] Guaifenesin 600 mg 03/06/19 10:00 03/09/19 10:14 Mucinex Er PO 600 mg BID ON [facility] OF [facility] Administration Hydralazine HCl 100 mg 03/06/19 06:00 03/09/19 13:54 Apresoline PO 100 mg Q8HR ON [facility] OF [facility] Administration Levofloxacin/Dextrose 750 mg in 150 mls @ 150 mls/hr 03/06/19 10:00 03/09/19 10:14 Levaquin 750mg/150ml IV 150 mls/hr Q24HR [facility] OF [facility] Administration Protocol Insulin Human Lispro 0 unit 03/06/19 07:30 03/09/19 11:55 Humalog SUB-Q Not Given [facility] Protocol Metoclopramide HCl 10 mg 03/08/19 02:23 Reglan IV Q6H PRN Nausea And Vomiting Nitroglycerin 0.4 mg 03/06/19 02:01 Nitrostat SL Q5M PRN Chest Pain Ondansetron HCl 4 mg 03/06/19 01:58 Zofran IV Q8H PRN Nausea And Vomiting Oxycodone/Acetaminophen 1 tab 03/08/19 02:43 03/09/19 13:54 Percocet 5/325 PO 1 tab Q4H PRN Administration Pain, Moderate (4-6) Sodium Chloride 10 ml 03/06/19 10:00 03/09/19 10:15 Sodium Chloride Flush Syringe 10 Ml IV 10 ml BID [facility] Administration Sodium Chloride 10 ml 03/06/19 01:58 Sodium Chloride Flush Syringe 10 Ml IV PRN PRN LINE FLUSH Torsemide 20 mg 03/09/19 11:00 03/09/19 13:54 Demadex PO 20 mg BID@0600,1800 ON LICENSE OF [facility] Administration Warfarin Sodium 7.5 mg 03/09/19 17:00 Coumadin PO DAILY@1700 ON LICENSE OF [facility]
[2019-03-09] MEDS ORDERED: COUMADIN PO SCH ×2 (17:00)
[2019-03-09] MEDS ORDERED: ATIVAN IV PRN (17:06)
--- NOTE | 2019-03-09 17:47 | Event Note ---
Date: 03/09/19 Nurse reports that it has seen seizure-like activity of the patient Patient was drowsy, no history of seizures in the past Place on seizure precautions, CT head without contrast IV Ativan as needed, if patient has more episodes of seizure we will initiate Seizure workup and peptic medications and neurology consult
--- NOTE | 2019-03-09 20:49 | Cat Scan Report ---
CT head/brain wo con INDICATION: seizure like activity. 52-year-old male TECHNIQUE: Routine CT head without contrast. All CT scans at this location are performed using CT dos e reduction for ALARA by means of automated exposure control. COMPARISON: None. FINDINGS: BRAIN / INTRACRANIAL CONTENTS: Old, small branch MCA infarct suggested in the inferior parietal lobul e on the left. Small, branch PICA territory infarct seen on the right. No acute hemorrhage, mass effe ct, midline shift, hydrocephalus, or acute, large territorial infarct. cerebral and cerebellar atrophy. There are areas of decreased attenuation in the white matter of the cerebral hemispheres. These are n onspecific findings and may be related to microangiopathy (hypertension, diabetes, atherosclerosis), given the patient's age. It might be difficult to evaluate for small areas of ischemia without diffus ion imaging by MRI. CRANIOCERVICAL JUNCTION: No significant abnormality. ORBITS: No significant abnormality of visualized orbits. SINUSES / MASTOIDS: No significant abnormality of the visualized paranasal sinuses or mastoid air ellen ls. ADDITIONAL FINDINGS: Subcutaneous calcification seen in the left frontal region-this may been locatio n for prior hematoma. Minimal atherosclerotic disease is seen in the anterior circulation. IMPRESSION: 1. No focal mass, hemorrhage, hydrocephalus, or acute, large territorial infarct. Signer Name: López Farmer MD, III Signed: 03/09/2019 8:45 PM Workstation Name: [id number]
[2019-03-10] MEDS: DEMADEX PO SCH (06:07)
[2019-03-10] MEDS: APRESOLINE PO SCH ×3 (06:07→21:13)
[2019-03-10 07:03] LABS: Calcium 9.1 mg/dL (8.4-10.2)
[2019-03-10 07:10] LABS: INR 1.41 (0.87-1.13)
[2019-03-10] MEDS: PROVENTIL IH PRN (08:21)
[2019-03-10] MEDS: PULMICORT IH SCH ×2 (08:21→19:58)
[2019-03-10] MEDS: HumaLOG SUB-Q SCH ×4 (08:23→21:12)
--- NOTE | 2019-03-10 09:03 | Progress Note ---
<JEANA HOLM - Last Filed: 03/10/19 10:46> Assessment and Plan Right Pleural effusion VQ scan reports intermediate probability for PE. Patient reports compliance of Eliquis as an outpatient. Chest pain, atypical Chronic systolic heart failure Chronic atrial fibrillation Eliquis has been stopped and instead changed to warfarin for oral anticoagulation. Hx of Nonischemic cardiomyopathy pt reports recent negative LHC at [place] 3 months ago; records not available for review. EF 15-20% by echo 11/2018 Presence of the ICD Essential hypertension Type 2 diabetes mellitus Chronic obstructive pulmonary disease CKD Recommend: Medical therapy for nonischemic cardiomyopathy and chronic atrial fibrillation as tolerated. Oral anticoagulation therapy temporarily held until workup and management of right pleural effusion is completed. Subjective Date of service: 03/10/19 Principal diagnosis: ckd 3 Interval history: Patient denies shortness of breath and chest pain. Objective Vital Signs Temp Pulse Pulse Pulse Resp Resp Resp 03/10/19 08:44 67 18 03/10/19 08:21 97 H 18 03/10/19 08:14 98.4 F 18 03/10/19 03:56 97.5 F L 76 18 03/09/19 23:27 18 03/09/19 23:11 98.0 F 55 L 20 03/09/19 22:35 18 03/09/19 22:27 18 03/09/19 22:25 82 18 03/09/19 22:21 82 03/09/19 21:38 85 18 03/09/19 21:30 84 18 03/09/19 21:29 03/09/19 20:36 88 03/09/19 19:28 98.4 F 82 20 03/09/19 17:04 98.1 F 18 03/09/19 12:24 98.5 F 18 BP Pulse Ox 03/10/19 08:44 03/10/19 08:21 98 03/10/19 08:14 91/46 03/10/19 03:56 96/69 95 03/09/19 23:27 03/09/19 23:11 111/72 92 03/09/19 22:35 03/09/19 22:27 03/09/19 22:25 92 03/09/19 22:21 129/59 03/09/19 21:38 03/09/19 21:30 07/09/19 21:29 98 03/09/19 20:36 03/09/19 19:28 129/80 83 L 03/09/19 17:04 104/82 03/09/19 12:24 97/68 - Physical Examination General: No Apparent Distress HEENT: Positive: PERRL Neck: Positive: neck supple Cardiac: Positive: irregularly irregular Lungs: Positive: Decreased Breath Sounds Neuro: Positive: Grossly Intact Extremities: Absent: edema - Labs and Meds Cardiac Enzymes 03/10/19 Range/Units 06:07 Lactate Dehydrogenase 157 (91-180) units/L Coagulation 03/10/19 Range/Units 06:07 PT 16.9 H (12.2-14.9) Sec. INR 1.41 H (0.87-1.13) Comprehensive Metabolic Panel 03/10/19 03/10/19 Range/Units 06:07 06:07 Sodium 137 (137-145) mmol/L Potassium 3.7 (3.6-5.0) mmol/L Chloride 97.0 L (98-107) mmol/L Carbon Dioxide 29 (22-30) mmol/L BUN 34 H (9-20) mg/dL Creatinine 2.2 H (0.8-1.5) mg/dL Glucose 119 H (75-100) mg/dL Calcium 9.1 (8.4-10.2) mg/dL Total Protein 7.7 (6.3-8.2) g/dL <POLLY ESPINOZA - Last Filed: 03/10/19 19:00> Assessment and Plan I have seen and evaluated the patient and agree with the assessment and plan. Continue Medical therapy for nonischemic cardiomyopathy and chronic atrial fibrillation. Oral anticoagulation therapy temporarily held until workup and management of right pleural effusion is completed. Restart anticoagulation after thoracentesis. Objective Vital Signs Temp Pulse Pulse Pulse Resp Resp Resp 03/10/19 13:44 67 03/10/19 10:00 92 H 80 03/10/19 08:44 67 18 03/10/19 08:21 97 H 18 03/10/19 08:14 98.4 F 18 03/10/19 03:56 97.5 F L 76 18 03/09/19 23:27 18 03/09/19 23:11 98.0 F 55 L 20 03/09/19 22:35 18 03/09/19 22:27 18 03/09/19 22:25 82 18 03/09/19 22:21 82 03/09/19 21:38 85 18 03/09/19 21:30 84 18 03/09/19 21:29 03/09/19 20:36 88 03/09/19 19:28 98.4 F 82 20 BP Pulse Ox 03/10/19 13:44 91/46 03/10/19 10:00 03/10/19 08:44 03/10/19 08:21 98 03/10/19 08:14 91/46 03/10/19 03:56 96/69 95 03/09/19 23:27 03/09/19 23:11 111/72 92 03/09/19 22:35 03/09/19 22:27 03/09/19 22:25 92 03/09/19 22:21 129/59 03/09/19 21:38 03/09/19 21:30 03/09/19 21:29 98 03/09/19 20:36 03/09/19 19:28 129/80 83 L - Labs and Meds Cardiac Enzymes 03/10/19 Range/Units 06:07 Lactate Dehydrogenase 157 (91-180) units/L Coagulation 03/10/19 Range/Units 06:07 PT 16.9 H (12.2-14.9) Sec. INR 1.41 H (0.87-1.13) Comprehensive Metabolic Panel 03/10/19 03/10/19 Range/Units 06:07 06:07 Sodium 137 (137-145) mmol/L Potassium 3.7 (3.6-5.0) mmol/L Chloride 97.0 L (98-107) mmol/L Carbon Dioxide 29 (22-30) mmol/L BUN 34 H (9-20) mg/dL Creatinine 2.2 H (0.8-1.5) mg/dL Glucose 119 H (75-100) mg/dL Calcium 9.1 (8.4-10.2) mg/dL Total Protein 7.7 (6.3-8.2) g/dL
--- NOTE | 2019-03-10 10:09 | Progress Note ---
Assessment and Plan Impression 1. Chronic combined systolic and diastolic heart failure 2. Chronic atrial fibrillation 3. Dilated ischemic cardiomyopathy 4. Essential hypertension 5. Type 2 diabetes mellitus 6. Chronic obstructive pulmonary disease 7. Presence of the ICD 8. CKD stage 3 9. Pleural effusion Plan His serum creatinine noted to be somewhat higher today. Suspect a possible prerenal component. Discontinue his torsemide for now . Baseline creatinine most likely 1.7-1.8 . Patient does have knowledge of prior renal dysfunction. He used to follow-up with a barrel straightener in [place]. Renal ultrasound consistent with chronic kidney disease. cards and pulm condition noted Monitor fluid status and electrolytes closely Patient is scheduled for thoracentesis today Subjective Date of service: 03/10/19 Principal diagnosis: ckd 3 Interval history: Patient is awake and alert. Shortness of breath is better. Scheduled for thoracentesis. Objective - Vital Signs Vital signs: Vital Signs - 12hr 03/09/19 03/09/19 03/09/19 22:21 22:25 22:27 Temperature Pulse Rate 82 Pulse Rate [ 82 Apical] Pulse Rate [ Posterior Bilateral Throughout] Respiratory 18 18 Rate Respiratory Rate [Bilateral Lower Leg] Respiratory Rate [Posterior Bilateral Throughout] Blood Pressure 129/59 O2 Sat by Pulse 92 Oximetry 03/09/19 03/09/19 03/09/19 22:35 23:11 23:27 Temperature 98.0 F Pulse Rate 55 L Pulse Rate [ Apical] Pulse Rate [ Posterior Bilateral Throughout] Respiratory 20 18 Rate Respiratory 18 Rate [Bilateral Lower Leg] Respiratory Rate [Posterior Bilateral Throughout] Blood Pressure 111/72 O2 Sat by Pulse 92 Oximetry 03/10/19 03/10/19 03/10/19 03:56 08:14 08:21 Temperature 97.5 F L 98.4 F Pulse Rate 76 Pulse Rate [ Apical] Pulse Rate [ 97 H Posterior Bilateral Throughout] Respiratory 18 18 Rate Respiratory Rate [Bilateral Lower Leg] Respiratory 18 Rate [Posterior Bilateral Throughout] Blood Pressure 96/69 91/46 O2 Sat by Pulse 95 98 Oximetry 03/10/19 08:44 Temperature Pulse Rate Pulse Rate [ Apical] Pulse Rate [ 67 Posterior Bilateral Throughout] Respiratory Rate Respiratory Rate [Bilateral Lower Leg] Respiratory 18 Rate [Posterior Bilateral Throughout] Blood Pressure O2 Sat by Pulse Oximetry - General Appearance General appearance: well-developed, well-nourished, appears stated age EENT: PERRL, mucous membranes moist Neck: no JVD, no thyromegaly, no carotid bruit, supple Respiratory: Present: Decreased Breath Sounds (at the bases) Cardiology: regular, irregularly irregular, S1S2, no murmurs Gastrointestinal: normal, normoactive bowel sounds Integumentary: no rash, other (no edema) - Lab 03/09/19 07:25 03/10/19 06:07 Most recent lab results Calcium 9.1 mg/dL (8.4-10.2) 03/10/19 06:07 Phosphorus 3.60 mg/dL (2.5-4.5) 03/10/19 06:07 Magnesium 1.80 mg/dL (1.7-2.3) 03/10/19 06:07 33.0 mg/dL (0.1-20.0) H 03/06/19 16:10 91 mmol/L 03/06/19 16:10 5 mg/dL (5-11.8) 03/06/19 16:10 Medications & Allergies - Medications Allergies/Adverse Reactions: Allergies Penicillins Allergy (Verified 03/05/19 22:41) Itching strawberry Allergy (Verified 03/05/19 22:41) Hives Home Medications: Home Medications Medication Instructions Recorded Confirmed Last Taken Type Apixaban [Eliquis] 1 tab PO BID 03/05/19 03/05/19 Unknown History Clindamycin [Clindamycin CAP] 150 mg PO TID 03/05/19 03/05/19 Unknown History Lisinopril [Zestril TAB] 1 tab PO DAILY 03/05/19 03/05/19 Unknown History Torsemide [Demadex] 2 tab PO BID 03/05/19 03/05/19 Unknown History hydrALAZINE [Apresoline TAB] 1 tab PO Q8HR 03/05/19 03/05/19 Unknown History Active Medications: Generic Name Dose Route Start Last Admin Trade Name Freq PRN Reason Stop Dose Admin Acetaminophen 650 mg 03/06/19 01:58 Tylenol PO Q4H PRN Pain MILD(1-3)/Fever >100.5/TRUJILLO Albuterol 2.5 mg 03/06/19 01:58 03/10/19 08:21 Proventil IH 2.5 mg Q3HRT PRN Administration Shortness Of Breath Aspirin 81 mg 03/07/19 10:00 03/09/19 10:14 Baby Aspirin PO 81 mg QDAY [facility] Administration Atorvastatin Calcium 40 mg 03/06/19 22:00 03/09/19 22:21 Lipitor PO 40 mg QHS [facility] Administration Budesonide 0.5 mg 03/06/19 08:00 03/10/19 08:21 Pulmicort IH 0.5 mg Q12HRT [facility] Administration Carvedilol 3.125 mg 03/08/19 10:00 03/09/19 22:21 Coreg PO 3.125 mg BID [facility] Administration Dextrose 50 ml 03/06/19 02:00 D50w (25gm) Syringe IV PRN PRN Hypoglycemia Docusate Sodium 100 mg 03/06/19 10:00 03/09/19 22:21 Colace PO 100 mg BID [facility] Administration Guaifenesin 600 mg 03/06/19 10:00 03/09/19 22:21 Mucinex Er PO 600 mg BID [facility] Administration Hydralazine HCl 100 mg 03/06/19 06:00 03/10/19 06:07 Apresoline PO Not Given Q8HR [facility] Levofloxacin/Dextrose 750 mg in 150 mls @ 150 mls/hr 03/06/19 10:00 03/09/19 10:14 Levaquin 750mg/150ml IV 150 mls/hr Q24HR [facility] Administration Protocol Insulin Human Lispro 0 unit 03/06/19 07:30 03/10/19 08:23 Humalog SUB-Q Not Given ACHS [facility] Protocol Lorazepam 2 mg 03/09/19 17:06 Ativan IV Q2H PRN Seizures Metoclopramide HCl 10 mg 03/08/19 02:23 Reglan IV Q6H PRN Nausea And Vomiting Nitroglycerin 0.4 mg 03/06/19 02:01 Nitrostat SL Q5M PRN Chest Pain Ondansetron HCl 4 mg 03/06/19 01:58 Zofran IV Q8H PRN Nausea And Vomiting Oxycodone/Acetaminophen 1 tab 03/08/19 02:43 03/09/19 22:27 Percocet 5/325 PO 1 tab Q4H PRN Administration Pain, Moderate (4-6) Sodium Chloride 10 ml 03/06/19 10:00 03/09/19 22:22 Sodium Chloride Flush Syringe 10 Ml IV 10 ml BID [facility] Administration Sodium Chloride 10 ml 03/06/19 01:58 Sodium Chloride Flush Syringe 10 Ml IV PRN PRN LINE FLUSH
[2019-03-10] MEDS: COLACE PO SCH ×2 (13:44→21:12)
[2019-03-10] MEDS: BABY ASPIRIN PO SCH (13:44)
[2019-03-10] MEDS: COREG PO SCH ×2 (13:44→21:13)
[2019-03-10] MEDS: MUCINEX ER PO SCH ×2 (13:45→21:12)
[2019-03-10] MEDS: SODIUM CHLORIDE FLUSH SYRINGE 10 ML IV SCH ×2 (14:05→21:13)
[2019-03-10] MEDS: LEVAQUIN 750MG/150ML 750 MG/150 ML BAG IV SCH (14:05)
--- NOTE | 2019-03-10 15:45 | Progress Note ---
Assessment and Plan - Patient Problems (1) Pneumonia Current Visit: Yes Status: Acute (2) Pleural effusion Current Visit: Yes Status: Acute (3) Renal insufficiency Current Visit: Yes Status: Acute Subjective Principal diagnosis: ckd 3 Interval history: feels better Objective Vital Signs - 12hr 03/10/19 03/10/19 03/10/19 03:56 08:14 08:21 Temperature 97.5 F L 98.4 F Pulse Rate 76 Pulse Rate [ Apical] Pulse Rate [ 97 H Posterior Bilateral Throughout] Respiratory 18 18 Rate Respiratory 18 Rate [Posterior Bilateral Throughout] Blood Pressure 96/69 91/46 O2 Sat by Pulse 95 98 Oximetry 03/10/19 03/10/19 03/10/19 08:44 10:00 13:44 Temperature Pulse Rate 67 Pulse Rate [ 80 Apical] Pulse Rate [ 67 Posterior Bilateral Throughout] Respiratory Rate Respiratory 18 Rate [Posterior Bilateral Throughout] Blood Pressure 91/46 O2 Sat by Pulse Oximetry Constitutional: no acute distress, alert Eyes: non-icteric ENT: oropharynx moist Neck: supple Effort: normal Ascultation: Right: diminished breath sounds, Left: clear Cardiovascular: regular rate and rhythm (no mrg) Gastrointestinal: normoactive bowel sounds, soft, non-tender, non-distended Integumentary: normal Extremities: no cyanosis Neurologic: normal mental status, non-focal exam, pupils equal and round, CN II- XII normal Psychiatric: mood appropriate, affect normal CBC and BMP: 03/09/19 07:25 03/10/19 06:07 ABG, PT/INR, D-dimer: PT/INR, D-dimer PT 16.9 Sec. (12.2-14.9) H 03/10/19 06:07 INR 1.41 (0.87-1.13) H 03/10/19 06:07 1869.29 ng/mlDDU (0-234) H 03/05/19 22:42 Abnormal lab findings: Abnormal Labs 03/05/19 03/05/19 03/05/19 22:42 22:42 22:42 Hgb 11.7 L Hct 35.1 L RDW 20.1 H [place] % (Auto) 9.3 H Baso % (Auto) 2.6 H Lymph # Baso # 0.2 H Seg Neutrophils % PT 15.9 H INR 1.30 H D-Dimer 1869.29 H Sodium Potassium 5.6 H Chloride BUN 34 H Creatinine 1.8 H Glucose 102 H POC Glucose Uric Acid HDL Cholesterol Urine Creatinine 03/06/19 03/06/19 03/06/19 02:19 02:19 05:56 Hgb Hct RDW 20.1 H [place] % (Auto) 10.1 H Baso % (Auto) Lymph # 1.1 L Baso # Seg Neutrophils % PT INR D-Dimer Sodium Potassium 3.5 L D Chloride BUN 36 H Creatinine 1.9 H Glucose POC Glucose Uric Acid HDL Cholesterol 26 L Urine Creatinine 03/06/19 03/06/19 03/06/19 09:55 11:29 16:10 Hgb Hct RDW [place] % (Auto) Baso % (Auto) Lymph # Baso # Seg Neutrophils % PT INR D-Dimer Sodium Potassium Chloride BUN Creatinine Glucose POC Glucose 107 H Uric Acid 15.2 H HDL Cholesterol Urine Creatinine 33.0 H 03/06/19 03/07/19 03/07/19 21:27 03:11 03:11 Hgb Hct RDW 19.9 H [place] % (Auto) 10.2 H Baso % (Auto) Lymph # 0.9 L Baso # Seg Neutrophils % 71.3 H PT INR D-Dimer Sodium Potassium Chloride BUN 30 H Creatinine 1.8 H Glucose 103 H POC Glucose 108 H Uric Acid HDL Cholesterol Urine Creatinine 03/07/19 03/07/19 03/07/19 11:18 17:08 20:41 Hgb Hct RDW [place] % (Auto) Baso % (Auto) Lymph # Baso # Seg Neutrophils % PT INR D-Dimer Sodium Potassium Chloride BUN Creatinine Glucose POC Glucose 118 H 117 H 107 H Uric Acid HDL Cholesterol Urine Creatinine 03/08/19 03/09/19 03/09/19 04:37 07:25 07:25 Hgb 11.7 L Hct RDW 19.9 H [place] % (Auto) 12.9 H Baso % (Auto) 1.9 H Lymph # 1.1 L Baso # Seg Neutrophils % PT 17.6 H INR 1.48 H D-Dimer Sodium 136 L Potassium Chloride 97.4 L BUN 27 H Creatinine 1.7 H Glucose POC Glucose Uric Acid HDL Cholesterol Urine Creatinine 03/09/19 03/09/19 03/09/19 07:25 11:48 16:20 Hgb Hct RDW [place] % (Auto) Baso % (Auto) Lymph # Baso # Seg Neutrophils % PT INR D-Dimer Sodium Potassium Chloride 95.4 L BUN 28 H Creatinine 1.8 H Glucose POC Glucose 124 H 107 H Uric Acid HDL Cholesterol Urine Creatinine 03/10/19 03/10/19 06:07 06:07 Hgb Hct RDW [place] % (Auto) Baso % (Auto) Lymph # Baso # Seg Neutrophils % PT 16.9 H INR 1.41 H D-Dimer Sodium Potassium Chloride 97.0 L BUN 34 H Creatinine 2.2 H Glucose 119 H POC Glucose Uric Acid HDL Cholesterol Urine Creatinine
[2019-03-10] MEDS: PERCOCET 5/325 PO PRN (15:56)
--- NOTE | 2019-03-10 17:05 | Progress Note ---
Assessment and Plan Assessment and plan: 53-year-old -[place] male patient with h/o CHF, NC on anticoagulation with Eliquis, hypertension, diabetes, COPD, and tobacco abuse presents to [facility] ED with complaints of left- sided chest pain.Patient is on Eliquis no clear indication.Patient was admitted, managed appropriately, evaluated by cardiology, medications optimized Patient had elevated d-dimer's, VQ scan intermediate probability for PE, probably due to failed Eliquis therapy versus noncompliance.Eliquis is held Patient started on Lovenox and Coumadin, with a target INR of 2-3, medical records requested from [facility]. --Large pleural effusion ;Right-side; on CT chest for ultrasound-guided thoracentesis tomorrow Pulmonary following --Intermediate probability for acute PE on VQ scan; VQ scan; matched defect throughout right mid to lower lung, intermediate probability for PE However CT chest findings, very large right pleural effusion with subsequent atelectasis of much of the right lung,. Unlikely PE, patient was already on Eliquis.Agree with webbing tacker.[DC lovenox] We will resume patient's Eliquis(5 mg twice a day] after thoracentesis Lower ext venous Dopplerto neg for DVT --Atypical chest pain; rule out acute coronary syndrome Cardiology following, requested medical records from [facility] --Acute exacerbation of chronic combined systolic and diastolic heart failure on antifailure medications input output monitoring, low sodium diet, fluid restriction ECHO for LV function/EF -- Dilated ischemic cardiomyopathy Anti-failure medications --Chronic atrial fibrillation; rate controlled Beta blockers, chronic anticoagulation changed to Lovenox and Coumadin --Acute kidney injury; vasomotor nephropathy Avoid nephrotoxins, nephrology consulted --Essential hypertension; Continue antihypertensives, when necessary hydralazine -- Type 2 diabetes mellitus; Accu-Chek sliding scale coverage and ADA diet as needed --Chronic obstructive pulmonary disease Oxygen titrate to O2 sats more than 90%, nebulizers as needed Pulmonary following -- Presence of the ICD; stable cardiology following --DVT Prophylaxis: on lovenox Monitor closely and adjust management as needed Plan of care reviewed rabia patient and his nurse Disposition; follow thoracentesis tomorrow Resume patient'sEliquis 5mg bid after procedure History Interval history: Patient seen and examined medical records reviewed Patient seems better, complains of generalized body pains Scheduled for thoracentesis Vital signs reviewed Hospitalist Physical - Constitutional Vitals: Temp Pulse Resp BP Pulse Ox 98.4 F 67 18 91/46 98 03/10/19 08:14 03/10/19 13:44 03/10/19 08:44 03/10/19 13:44 03/10/19 08:21 General appearance: Present: no acute distress, well-nourished - EENT Eyes: Present: PERRL, EOM intact - Neck Neck: Present: supple, normal ROM - Respiratory Respiratory effort: normal Respiratory: bilateral: diminished (right more than left), rales, negative: rhonchi, wheezing - Cardiovascular Rhythm: regular Heart Sounds: Present: S1 & S2 - Extremities Extremities: no ischemia, No edema - Abdominal General gastrointestinal: soft, non-tender, non-distended, normal bowel sounds - Integumentary Integumentary: Present: clear, warm - Psychiatric Psychiatric: appropriate mood/affect, cooperative - Neurologic Neurologic: CNII-XII intact, moves all extremities Results - Labs CBC & Chem 7: 03/09/19 07:25 03/10/19 06:07 Labs: Laboratory Last Values WBC 5.8 K/mm3 (4.5-11.0) 03/09/19 07:25 RBC 4.10 M/mm3 (3.65-5.03) 03/09/19 07:25 Hgb 11.7 gm/dl (11.8-15.2) L 03/09/19 07:25 Hct 35.7 % (35.5-45.6) 03/09/19 07:25 MCV 87 fl (84-94) 03/09/19 07:25 MCH 29 pg (28-32) 03/09/19 07:25 MCHC 33 % (32-34) 03/09/19 07:25 RDW 19.9 % (13.2-15.2) H 03/09/19 07:25 Plt Count 191 K/mm3 (140-440) 03/09/19 07:25 Lymph % (Auto) 18.1 % (13.4-35.0) 03/09/19 07:25 [place] % (Auto) 12.9 % (0.0-7.3) H 03/09/19 07:25 Eos % (Auto) 2.3 % (0.0-4.3) 03/09/19 07:25 Baso % (Auto) 1.9 % (0.0-1.8) H 03/09/19 07:25 Lymph # 1.1 K/mm3 (1.2-5.4) L 03/09/19 07:25 [place] # 0.7 K/mm3 (0.0-0.8) 03/09/19 07:25 Eos # 0.1 K/mm3 (0.0-0.4) 03/09/19 07:25 Baso # 0.1 K/mm3 (0.0-0.1) 03/09/19 07:25 Seg Neutrophils % 64.8 % (40.0-70.0) 03/09/19 07:25 Seg Neutrophils # 3.8 K/mm3 (1.8-7.7) 03/09/19 07:25 PT 16.9 Sec. (12.2-14.9) H 03/10/19 06:07 INR 1.41 (0.87-1.13) H 03/10/19 06:07 APTT 26.3 Sec. (24.2-36.6) 03/05/19 22:42 1869.29 ng/mlDDU (0-234) H 03/05/19 22:42 Sodium 137 mmol/L (137-145) 03/10/19 06:07 Potassium 3.7 mmol/L (3.6-5.0) 03/10/19 06:07 Chloride 97.0 mmol/L (98-107) L 03/10/19 06:07 Carbon Dioxide 29 mmol/L (22-30) 03/10/19 06:07 15 mmol/L 03/10/19 06:07 BUN 34 mg/dL (9-20) H 03/10/19 06:07 2.2 mg/dL (0.8-1.5) H 03/10/19 06:07 Estimated GFR 38 ml/min 03/10/19 06:07 15 % 03/10/19 06:07 Glucose 119 mg/dL (75-100) H 03/10/19 06:07 POC Glucose 83 (70-105) 03/10/19 15:54 5.6 % (4-6) 03/06/19 02:19 308 Mosm/kg 03/06/19 09:55 15.2 mg/dL (3.5-7.6) H 03/06/19 09:55 Calcium 9.1 mg/dL (8.4-10.2) 03/10/19 06:07 Phosphorus 3.60 mg/dL (2.5-4.5) 03/10/19 06:07 Magnesium 1.80 mg/dL (1.7-2.3) 03/10/19 06:07 157 units/L (91-180) 03/10/19 06:07 80 units/L (55-170) 03/05/19 22:42 CK-MB (CK-2) 2.2 ng/mL (0.0-4.0) 03/05/19 22:42 CK-MB (CK-2) Rel Index 2.7 (0-4) 03/05/19 22:42 0.019 ng/mL (0.00-0.029) 03/06/19 05:56 7.7 g/dL (6.3-8.2) 03/10/19 06:07 Triglycerides 82 mg/dL (2-149) 03/06/19 05:56 Cholesterol 135 mg/dL (50-199) 03/06/19 05:56 97 mg/dL (50-130) 03/06/19 05:56 26 mg/dL (40-59) L 03/06/19 05:56 5.19 % 03/06/19 05:56 33.0 mg/dL (0.1-20.0) H 03/06/19 16:10 91 mmol/L 03/06/19 16:10 5 mg/dL (5-11.8) 03/06/19 16:10 Active Medications - Current Medications Current Medications: Generic Name Dose Route Start Last Admin Trade Name Freq PRN Reason Stop Dose Admin Acetaminophen 650 mg 03/06/19 01:58 Tylenol PO Q4H PRN Pain MILD(1-3)/Fever >100.5/TRUJILOL Albuterol 2.5 mg 03/06/19 01:58 03/10/19 08:21 Proventil IH 2.5 mg Q3HRT PRN Administration Shortness Of Breath Aspirin 81 mg 03/07/19 10:00 03/10/19 13:44 Baby Aspirin PO Not Given QDAY [facility] Atorvastatin Calcium 40 mg 03/06/19 22:00 03/09/19 22:21 Lipitor PO 40 mg QHS [facility] Administration Budesonide 0.5 mg 03/06/19 08:00 03/10/19 08:21 Pulmicort IH 0.5 mg Q12HRT [facility] Administration Carvedilol 3.125 mg 03/08/19 10:00 03/10/19 13:44 Coreg PO Not Given BID [facility] Dextrose 50 ml 03/06/19 02:00 D50w (25gm) Syringe IV PRN PRN Hypoglycemia Docusate Sodium 100 mg 03/06/19 10:00 03/10/19 13:44 Colace PO Not Given BID [facility] Guaifenesin 600 mg 03/06/19 10:00 03/10/19 13:45 Mucinex Er PO Not Given BID [facility] Hydralazine HCl 100 mg 03/06/19 06:00 03/10/19 14:06 Apresoline PO Not Given Q8HR [facility] Levofloxacin/Dextrose 750 mg in 150 mls @ 150 mls/hr 03/06/19 10:00 03/10/19 14:05 Levaquin 750mg/150ml IV 03/12/19 10:59 150 mls/hr Q24HR [facility] Administration Protocol Insulin Human Lispro 0 unit 03/06/19 07:30 03/10/19 13:45 Humalog SUB-Q Not Given ACHS [facility] Protocol Lorazepam 2 mg 03/09/19 17:06 Ativan IV Q2H PRN Seizures Metoclopramide HCl 10 mg 03/08/19 02:23 Reglan IV Q6H PRN Nausea And Vomiting Nitroglycerin 0.4 mg 03/06/19 02:01 Nitrostat SL Q5M PRN Chest Pain Ondansetron HCl 4 mg 03/06/19 01:58 Zofran IV Q8H PRN Nausea And Vomiting Oxycodone/Acetaminophen 1 tab 03/08/19 02:43 03/10/19 15:56 Percocet 5/325 PO 1 tab Q4H PRN Administration Pain, Moderate (4-6) Sodium Chloride 10 ml 03/06/19 10:00 03/10/19 14:05 Sodium Chloride Flush Syringe 10 Ml IV 10 ml BID [facility] Administration Sodium Chloride 10 ml 07/06/19 01:58 Sodium Chloride Flush Syringe 10 Ml IV PRN PRN LINE FLUSH
[2019-03-11] MEDS: PERCOCET 5/325 PO PRN ×4 (00:07→21:01)
[2019-03-11] MEDS: APRESOLINE PO SCH ×3 (05:24→21:02)
[2019-03-11 05:45] LABS: INR 1.28 (0.87-1.13)
--- NOTE | 2019-03-11 09:19 | Progress Note ---
Assessment and Plan Impression 1. Chronic combined systolic and diastolic heart failure 2. Chronic atrial fibrillation 3. Dilated ischemic cardiomyopathy 4. Essential hypertension 5. Type 2 diabetes mellitus 6. Chronic obstructive pulmonary disease 7. Presence of the ICD 8. CKD stage 3 9. Pleural effusion Plan His serum creatinine noted to be slowly improving. Suspect a possible prerenal component. Continue to hold his torsemide for now . Baseline creatinine most likely 1.7-1.8 . Patient does have knowledge of prior renal dysfunction. 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 Renal ultrasound consistent with chronic kidney disease. cards and pulm condition noted Monitor fluid status and electrolytes closely Patient is status post thoracentesis today Subjective Date of service: 03/11/19 Principal diagnosis: ckd 3 Interval history: Patient is comfortable. Shortness of breath is better. Patient just returned from thoracentesis Objective - Vital Signs Vital signs: Vital Signs - 12hr 03/10/19 03/11/19 03/11/19 22:48 03:00 03:34 Temperature 98.0 F 97.4 F L Pulse Rate 73 85 79 Respiratory 20 18 Rate Blood Pressure 99/65 92/67 O2 Sat by Pulse 89 92 Oximetry - General Appearance General appearance: well-developed, well-nourished, appears stated age EENT: PERRL, mucous membranes moist Neck: no JVD, no thyromegaly, no carotid bruit, supple Respiratory: Present: Decreased Breath Sounds (at the bases) Cardiology: irregularly irregular, normal heart rate Gastrointestinal: normal, normoactive bowel sounds Integumentary: no rash, other (no edema) - Lab 03/09/19 07:25 03/11/19 05:14 Most recent lab results Calcium 9.0 mg/dL (8.4-10.2) 03/11/19 05:14 Phosphorus 3.60 mg/dL (2.5-4.5) 03/10/19 06:07 Magnesium 2.00 mg/dL (1.7-2.3) 03/11/19 05:14 33.0 mg/dL (0.1-20.0) H 03/06/19 16:10 91 mmol/L 03/06/19 16:10 5 mg/dL (5-11.8) 03/06/19 16:10 Medications & Allergies - Medications Allergies/Adverse Reactions: Allergies Penicillins Allergy (Verified 03/05/19 22:41) Itching strawberry Allergy (Verified 03/05/19 22:41) Hives Home Medications: Home Medications Medication Instructions Recorded Confirmed Last Taken Type Apixaban [Eliquis] 1 tab PO BID 03/05/19 03/05/19 Unknown History Clindamycin [Clindamycin CAP] 150 mg PO TID 03/05/19 03/05/19 Unknown History Lisinopril [Zestril TAB] 1 tab PO DAILY 03/05/19 03/05/19 Unknown History Torsemide [Demadex] 2 tab PO BID 03/05/19 03/05/19 Unknown History hydrALAZINE [Apresoline TAB] 1 tab PO Q8HR 03/05/19 03/05/19 Unknown History Active Medications: Generic Name Dose Route Start Last Admin Trade Name Freq PRN Reason Stop Dose Admin Acetaminophen 650 mg 03/06/19 01:58 Tylenol PO Q4H PRN Pain MILD(1-3)/Fever >100.5/TRUJILLO Albuterol 2.5 mg 03/06/19 01:58 03/10/19 08:21 Proventil IH 2.5 mg Q3HRT PRN Administration Shortness Of Breath Aspirin 81 mg 03/07/19 10:00 03/10/19 13:44 Baby Aspirin PO Not Given QDAY [facility] Atorvastatin Calcium 40 mg 03/06/19 22:00 03/10/19 21:12 Lipitor PO 40 mg QHS [facility] Administration Budesonide 0.5 mg 03/06/19 08:00 03/10/19 19:58 Pulmicort IH 0.5 mg Q12HRT [facility] Administration Carvedilol 3.125 mg 03/08/19 10:00 03/10/19 21:13 Coreg PO Not Given BID [facility] Dextrose 50 ml 03/06/19 02:00 D50w (25gm) Syringe IV PRN PRN Hypoglycemia Docusate Sodium 100 mg 03/06/19 10:00 03/10/19 21:12 Colace PO 100 mg BID [facility] Administration Guaifenesin 600 mg 03/06/19 10:00 03/10/19 21:12 Mucinex Er PO 600 mg BID [facility] Administration Hydralazine HCl 100 mg 03/06/19 06:00 03/11/19 05:24 Apresoline PO Not Given Q8HR [facility] Levofloxacin/Dextrose 750 mg in 150 mls @ 150 mls/hr 03/06/19 10:00 03/10/19 14:05 Levaquin 750mg/150ml IV 03/12/19 10:59 150 mls/hr Q24HR [facility] Administration Protocol Insulin Human Lispro 0 unit 03/06/19 07:30 03/10/19 21:12 Humalog SUB-Q Not Given ACHS [facility] Protocol Lorazepam 2 mg 03/09/19 17:06 Ativan IV Q2H PRN Seizures Metoclopramide HCl 10 mg 03/08/19 02:23 Reglan IV Q6H PRN Nausea And Vomiting Nitroglycerin 0.4 mg 03/06/19 02:01 Nitrostat SL Q5M PRN Chest Pain Ondansetron HCl 4 mg 03/06/19 01:58 Zofran IV Q8H PRN Nausea And Vomiting Oxycodone/Acetaminophen 1 tab 03/08/19 02:43 03/11/19 00:07 Percocet 5/325 PO 1 tab Q4H PRN Administration Pain, Moderate (4-6) Sodium Chloride 10 ml 03/06/19 10:00 03/10/19 21:13 Sodium Chloride Flush Syringe 10 Ml IV 10 ml BID [facility] Administration Sodium Chloride 10 ml 03/06/19 01:58 Sodium Chloride Flush Syringe 10 Ml IV PRN PRN LINE FLUSH
[2019-03-11] MEDS: MUCINEX ER PO SCH ×2 (09:50→21:01)
[2019-03-11] MEDS: LEVAQUIN 750MG/150ML 750 MG/150 ML BAG IV SCH (09:50)
[2019-03-11] MEDS: COLACE PO SCH ×2 (09:50→21:00)
[2019-03-11] MEDS: BABY ASPIRIN PO SCH (09:50)
[2019-03-11] MEDS: HumaLOG SUB-Q SCH ×4 (09:51→21:43)
[2019-03-11] MEDS: SODIUM CHLORIDE FLUSH SYRINGE 10 ML IV SCH ×2 (09:52→21:02)
[2019-03-11] MEDS: PULMICORT IH SCH ×2 (09:56→20:57)
[2019-03-11] MEDS: PROVENTIL IH PRN (09:56)
--- NOTE | 2019-03-11 10:19 | Procedure Note ---
Date of procedure: 03/11/19 Pre-op diagnosis: right pleural effusion Post-op diagnosis: same Procedure: US thoracentesis, right Findings: large right pleural effusion Surgeon: AYAKA MENSAH Estimated blood loss: none Pathology: list (120cc) Specimen disposition: to lab Condition: stable Disposition: floor
--- NOTE | 2019-03-11 10:28 | Ultrasound Report ---
ULTRASOUND-GUIDED THORACENTESIS HISTORY: Right pleural effusion. Shortness of breath COMPARISON: None PROCEDURE: The risks (including but not limited to bleeding, infection, and pneumothorax) and benefi ts were explained to the patient and informed consent was obtained. A time out procedure was perform ed. Ultrasound was used to evaluate the right pleural effusion and locate the optimal site for needle ent ry. Once the skin was marked, the procedure site was prepped and draped in the usual sterile fashion and lidocaine was used for local anesthesia. A skin irvin was made and a 6-Telugu thoracentesis cath eter was placed. The patient was monitored closely throughout the procedure, and a total of 2400 mL of yellow, cloudy fluid was aspirated. Samples were sent to the lab for further evaluation per the [facility] clinicians orders. The patient tolerated the procedure well with no complications. A post-procedure chest x-ray was imm ediately ordered. IMPRESSION: Successful thoracentesis as above with a total of 2400 mL of yellow, cloudy fluid aspirat ed. Signer Name: Tenzin Vallejo Jr, MD Signed: 03/11/2019 10:23 AM Workstation Name: [id number]
[2019-03-11 10:47] LABS: Total Cells Counted 100 /mm3
--- NOTE | 2019-03-11 11:08 | Progress Note ---
Assessment and Plan Right Pleural effusion VQ scan reports intermediate probability for PE. Patient reports compliance of Eliquis as an outpatient. Chest pain, atypical Chronic systolic heart failure Chronic atrial fibrillation Eliquis has been stopped and instead changed to warfarin for oral anticoagulation. Hx of Nonischemic cardiomyopathy pt reports recent negative LHC at [place] 3 months ago; records not available for review. EF 15-20% by echo 11/2018 Presence of the ICD Essential hypertension Type 2 diabetes mellitus Chronic obstructive pulmonary disease CKD Recommend: Medical therapy for nonischemic cardiomyopathy and chronic atrial fibrillation as tolerated. Subjective Date of service: 03/11/19 Principal diagnosis: ckd 3 Interval history: s/p thoracentesis this morning. No distress noted. Short burst of NSVT noted on telemetry this morning. Objective Vital Signs Temp Pulse Pulse Pulse Resp Resp Resp 03/11/19 10:15 82 18 03/11/19 10:00 03/11/19 09:57 79 20 03/11/19 09:52 79 03/11/19 08:13 98.5 F 18 03/11/19 03:34 97.4 F L 79 18 03/11/19 03:00 85 03/10/19 22:48 98.0 F 73 20 03/10/19 20:09 79 18 03/10/19 20:00 03/10/19 19:59 65 18 03/10/19 19:50 97.5 F L 51 L 19 03/10/19 17:18 98.3 F 18 03/10/19 13:44 67 03/10/19 12:56 97.5 F L 18 BP Pulse Ox 03/11/19 10:15 03/11/19 10:00 97 03/11/19 09:57 03/11/19 09:52 94/66 03/11/19 08:13 94/66 03/11/19 03:34 92/67 92 03/11/19 03:00 03/10/19 22:48 99/65 89 03/10/19 20:09 03/10/19 20:00 97 03/10/19 19:59 03/10/19 19:50 101/63 94 03/10/19 17:18 95/68 03/10/19 13:44 91/46 03/10/19 12:56 120/89 - Physical Examination General: No Apparent Distress HEENT: Positive: PERRL Neck: Positive: trachea midline Cardiac: Positive: irregularly irregular Lungs: Positive: Decreased Breath Sounds Neuro: Positive: Grossly Intact Extremities: Absent: edema - Labs and Meds Coagulation 03/11/19 Range/Units 05:14 PT 15.7 H (12.2-14.9) Sec. INR 1.28 H (0.87-1.13) Comprehensive Metabolic Panel 03/11/19 Range/Units 05:14 Sodium 133 L (137-145) mmol/L Potassium 4.2 (3.6-5.0) mmol/L Chloride 95.0 L (98-107) mmol/L Carbon Dioxide 25 (22-30) mmol/L BUN 35 H (9-20) mg/dL Creatinine 2.0 H (0.8-1.5) mg/dL Glucose 91 (75-100) mg/dL Calcium 9.0 (8.4-10.2) mg/dL
--- NOTE | 2019-03-11 13:09 | Progress Note ---
Assessment and Plan Imp: 1. Pleural effusion on R of ? etiology 2. Chronic nicotine dependence, cigarettes 3. NICMP 4. Chronic systolic CHF 5. ESTEVAN Rec: 1. Cont. Levaquin x 5-7 days 2. Doubt PE on Eliquis; V/Q results not helpful 3. Diagnostic and therapeutic thoracentesis done; f/u on PFA 4. Needs f/u as outpatient to review pleural fluid results and repeat CXR to check for re-accumulation Plan of care reviewed w/ patient, he understands/agrees Subjective Date of service: 03/11/19 Principal diagnosis: ckd 3 Interval history: No events. Thora done on R, see report. SOB and chest pain are both better. Has a dry cough after tap done. Active Medications Acetaminophen (Tylenol) 650 mg PO Q4H PRN PRN Reason: Pain MILD(1-3)/Fever >100.5/TRUJILLO Albuterol (Proventil) 2.5 mg IH Q3HRT PRN PRN Reason: Shortness Of Breath Last Admin: 03/11/19 09:56 Dose: 2.5 mg Documented by: Aspirin (Baby Aspirin) 81 mg PO QDAY [facility] Last Admin: 03/11/19 09:50 Dose: 81 mg Documented by: Atorvastatin Calcium (Lipitor) 40 mg PO QHS [facility] Last Admin: 03/10/19 21:12 Dose: 40 mg Documented by: Budesonide (Pulmicort) 0.5 mg IH Q12HRT [facility] Last Admin: 03/11/19 09:56 Dose: 0.5 mg Documented by: Carvedilol (Coreg) 3.125 mg PO BID [facility] Last Admin: 03/11/19 09:52 Dose: Not Given Documented by: Dextrose (D50w (25gm) Syringe) 50 ml IV PRN PRN PRN Reason: Hypoglycemia Docusate Sodium (Colace) 100 mg PO BID [facility] Last Admin: 03/11/19 09:50 Dose: 100 mg Documented by: Guaifenesin (Mucinex Er) 600 mg PO BID [facility] Last Admin: 03/11/19 09:50 Dose: 600 mg Documented by: Hydralazine HCl (Apresoline) 100 mg PO Q8HR [facility] Last Admin: 03/11/19 05:24 Dose: Not Given Documented by: Levofloxacin/Dextrose (Levaquin 750mg/150ml) 750 mg in 150 mls @ 150 mls/hr IV Q24HR [facility]; Protocol Stop: 03/12/19 10:59 Last Infusion: 03/11/19 12:25 Dose: Infused Documented by: Insulin Human Lispro (Humalog) 0 unit SUB-Q ACHS [facility]; Protocol Last Admin: 03/11/19 12:26 Dose: Not Given Documented by: Lorazepam (Ativan) 2 mg IV Q2H PRN PRN Reason: Seizures Metoclopramide HCl (Reglan) 10 mg IV Q6H PRN PRN Reason: Nausea And Vomiting Nitroglycerin (Nitrostat) 0.4 mg SL Q5M PRN PRN Reason: Chest Pain Ondansetron HCl (Zofran) 4 mg IV Q8H PRN PRN Reason: Nausea And Vomiting Oxycodone/Acetaminophen (Percocet 5/325) 1 tab PO Q4H PRN PRN Reason: Pain, Moderate (4-6) Last Admin: 03/11/19 10:51 Dose: 1 tab Documented by: Sodium Chloride (Sodium Chloride Flush Syringe 10 Ml) 10 ml IV BID [facility] Last Admin: 03/11/19 09:52 Dose: 10 ml Documented by: Sodium Chloride (Sodium Chloride Flush Syringe 10 Ml) 10 ml IV PRN PRN PRN Reason: LINE FLUSH Objective Vital Signs - 12hr 03/11/19 03/11/19 03/11/19 03:00 03:34 08:13 Temperature 97.4 F L 98.5 F Pulse Rate 85 79 Pulse Rate [ Anterior Bilateral Throughout] Respiratory 18 18 Rate Respiratory Rate [Anterior Bilateral Throughout] Blood Pressure 92/67 94/66 O2 Sat by Pulse 92 Oximetry 03/11/19 03/11/19 03/11/19 09:52 09:57 10:00 Temperature Pulse Rate 79 Pulse Rate [ 79 Anterior Bilateral Throughout] Respiratory Rate Respiratory 20 Rate [Anterior Bilateral Throughout] Blood Pressure 94/66 O2 Sat by Pulse 97 Oximetry 03/11/19 10:15 Temperature Pulse Rate Pulse Rate [ 82 Anterior Bilateral Throughout] Respiratory Rate Respiratory 18 Rate [Anterior Bilateral Throughout] Blood Pressure O2 Sat by Pulse Oximetry Constitutional: no acute distress, alert Eyes: non-icteric ENT: oropharynx moist Neck: supple Effort: normal Ascultation: Bilateral: clear Cardiovascular: regular rate and rhythm (no mrg) Gastrointestinal: normoactive bowel sounds, soft, non-tender, non-distended Integumentary: normal Extremities: no cyanosis Neurologic: normal mental status, non-focal exam, pupils equal and round, CN II- XII normal Psychiatric: mood appropriate, affect normal CBC and BMP: 03/09/19 07:25 03/11/19 05:14 ABG, PT/INR, D-dimer: PT/INR, D-dimer PT 15.7 Sec. (12.2-14.9) H 03/11/19 05:14 INR 1.28 (0.87-1.13) H 03/11/19 05:14 1869.29 ng/mlDDU (0-234) H 03/05/19 22:42 Abnormal lab findings: Abnormal Labs 03/05/19 03/05/19 03/05/19 22:42 22:42 22:42 Hgb 11.7 L Hct 35.1 L RDW 20.1 H [place] % (Auto) 9.3 H Baso % (Auto) 2.6 H Lymph # Baso # 0.2 H Seg Neutrophils % PT 15.9 H INR 1.30 H D-Dimer 1869.29 H Sodium Potassium 5.6 H Chloride BUN 34 H Creatinine 1.8 H Glucose 102 H POC Glucose Uric Acid HDL Cholesterol Free T4 Urine Creatinine 03/06/19 03/06/19 03/06/19 02:19 02:19 05:56 Hgb Hct RDW 20.1 H [place] % (Auto) 10.1 H Baso % (Auto) Lymph # 1.1 L Baso # Seg Neutrophils % PT INR D-Dimer Sodium Potassium 3.5 L D Chloride BUN 36 H Creatinine 1.9 H Glucose POC Glucose Uric Acid HDL Cholesterol 26 L Free T4 Urine Creatinine 03/06/19 03/06/19 03/06/19 09:55 11:29 16:10 Hgb Hct RDW [place] % (Auto) Baso % (Auto) Lymph # Baso # Seg Neutrophils % PT INR D-Dimer Sodium Potassium Chloride BUN Creatinine Glucose POC Glucose 107 H Uric Acid 15.2 H HDL Cholesterol Free T4 Urine Creatinine 33.0 H 03/06/19 03/07/19 03/07/19 21:27 03:11 03:11 Hgb Hct RDW 19.9 H [place] % (Auto) 10.2 H Baso % (Auto) Lymph # 0.9 L Baso # Seg Neutrophils % 71.3 H PT INR D-Dimer Sodium Potassium Chloride BUN 30 H Creatinine 1.8 H Glucose 103 H POC Glucose 108 H Uric Acid HDL Cholesterol Free T4 Urine Creatinine 03/07/19 03/07/19 03/07/19 11:18 17:08 20:41 Hgb Hct RDW [place] % (Auto) Baso % (Auto) Lymph # Baso # Seg Neutrophils % PT INR D-Dimer Sodium Potassium Chloride BUN Creatinine Glucose POC Glucose 118 H 117 H 107 H Uric Acid HDL Cholesterol Free T4 Urine Creatinine 03/08/19 03/09/19 03/09/19 04:37 07:25 07:25 Hgb 11.7 L Hct RDW 19.9 H [place] % (Auto) 12.9 H Baso % (Auto) 1.9 H Lymph # 1.1 L Baso # Seg Neutrophils % PT 17.6 H INR 1.48 H D-Dimer Sodium 136 L Potassium Chloride 97.4 L BUN 27 H Creatinine 1.7 H Glucose POC Glucose Uric Acid HDL Cholesterol Free T4 Urine Creatinine 03/09/19 03/09/19 03/09/19 07:25 11:48 16:20 Hgb Hct RDW [place] % (Auto) Baso % (Auto) Lymph # Baso # Seg Neutrophils % PT INR D-Dimer Sodium Potassium Chloride 95.4 L BUN 28 H Creatinine 1.8 H Glucose POC Glucose 124 H 107 H Uric Acid HDL Cholesterol Free T4 Urine Creatinine 03/10/19 03/10/19 03/10/19 06:07 06:07 20:52 Hgb Hct RDW [place] % (Auto) Baso % (Auto) Lymph # Baso # Seg Neutrophils % PT 16.9 H INR 1.41 H D-Dimer Sodium Potassium Chloride 97.0 L BUN 34 H Creatinine 2.2 H Glucose 119 H POC Glucose 107 H Uric Acid HDL Cholesterol Free T4 Urine Creatinine 03/11/19 03/11/19 03/11/19 05:14 05:14 10:17 Hgb Hct RDW [place] % (Auto) Baso % (Auto) Lymph # Baso # Seg Neutrophils % PT 15.7 H INR 1.28 H D-Dimer Sodium 133 L Potassium Chloride 95.0 L BUN 35 H Creatinine 2.0 H Glucose POC Glucose Uric Acid HDL Cholesterol Free T4 1.50 H Urine Creatinine 07/11/19 11:45 Hgb Hct RDW [place] % (Auto) Baso % (Auto) Lymph # Baso # Seg Neutrophils % PT INR D-Dimer Sodium Potassium Chloride BUN Creatinine Glucose POC Glucose 121 H Uric Acid HDL Cholesterol Free T4 Urine Creatinine Chest x-ray: report reviewed, image reviewed
--- NOTE | 2019-03-11 13:22 | XRay Report ---
CHEST 1 VIEW UPRIGHT INDICATION: sob, recent right thoracentesis, rt pleural eff. COMPARISON: 03/05/2019 FINDINGS: Support devices: AICD with lead in the left ventricle. Heart: Cardiomegaly slightly decreased compared to the last exam. Pulmonary vessels are more distinct than on the last exam. Lungs/Pleura: Diffuse right basal airspace disease and right pleural effusion. However, the amount of pleural fluid is decreased compared to the last exam. No pneumothorax. The left lung is normally exp anded and clear. Additional findings: None. IMPRESSION: 1. Diffuse right basal airspace disease which has become apparent density thoracentesis. 2. Persistent small right pleural effusion. 3. No pneumothorax. Signer Name: Monty Hess MD Signed: 03/11/2019 1:18 PM Workstation Name: [id number]
[2019-03-11] MEDS: COREG PO SCH ×3 (15:00→21:02)
--- NOTE | 2019-03-11 18:13 | Progress Note ---
Assessment and Plan Assessment and plan: Patient 53-year-old male with a history of congestive heart failure myocardial infarction hypertension chronic atrial fibrillation diabetes COPD and tobacco abuse presenting for left sided chest pain. VQ scan significant for intermediate probability. #1 pleural effusion status post thoracentesis today. Did have some improvement. Anticoagulant on hold. Pulmonology following. Dr. Daniels. #2 VQ scan consistent with acute PE. Was thought to be most likely secondary to large pleural effusion. Currently L was is to be started back. Ultrasound was negative for DVT. #3 Acute on chronic systolic and diastolic heart failure. Fairly well compensated at present #4 chronic A. fib we'll continue elaquis after risk of bleeding resolved. 5 hypertension continue Coreg and hydralazine. #6 hyperlipidemia continue aggressive statin therapy. History Interval history: Patient today states he feels better still have a cough. Patient back from thoracentesis this morning. Denies any acute discomfort. Aspirin course uncomplicated over p.m. Hospitalist Physical - Constitutional Vitals: Temp Pulse Resp BP Pulse Ox 97.6 F 99 H 18 104/79 97 03/11/19 11:41 03/11/19 15:00 03/11/19 11:41 03/11/19 15:00 03/11/19 10:00 General appearance: Present: no acute distress, well-nourished - EENT Eyes: Present: PERRL, EOM intact ENT: hearing intact, clear oral mucosa, dentition normal, no oropharyngeal erythema, no poor dentition, no thrush - Neck Neck: Present: supple. Absent: enlarged thyroid, masses or JVD, cervical LAD - Respiratory Respiratory: right: diminished, rhonchi - Cardiovascular Rhythm: regular - Extremities Extremities: no ischemia, pulses intact, pulses symmetrical, No edema, normal temperature, normal color Peripheral Pulses: within normal limits - Abdominal General gastrointestinal: soft, non-tender, non-distended, normal bowel sounds - Integumentary Integumentary: Present: clear, warm, dry - Psychiatric Psychiatric: appropriate mood/affect, intact judgment & insight, memory intact - Neurologic Neurologic: CNII-XII intact, moves all extremities Results - Labs CBC & Chem 7: 03/09/19 07:25 03/11/19 05:14 Labs: Laboratory Last Values WBC 5.8 K/mm3 (4.5-11.0) 03/09/19 07:25 RBC 4.10 M/mm3 (3.65-5.03) 03/09/19 07:25 Hgb 11.7 gm/dl (11.8-15.2) L 03/09/19 07:25 Hct 35.7 % (35.5-45.6) 03/09/19 07:25 MCV 87 fl (84-94) 03/09/19 07:25 MCH 29 pg (28-32) 03/09/19 07:25 MCHC 33 % (32-34) 03/09/19 07:25 RDW 19.9 % (13.2-15.2) H 03/09/19 07:25 Plt Count 191 K/mm3 (140-440) 03/09/19 07:25 Lymph % (Auto) 18.1 % (13.4-35.0) 03/09/19 07:25 [place] % (Auto) 12.9 % (0.0-7.3) H 03/09/19 07:25 Eos % (Auto) 2.3 % (0.0-4.3) 03/09/19 07:25 Baso % (Auto) 1.9 % (0.0-1.8) H 03/09/19 07:25 Lymph # 1.1 K/mm3 (1.2-5.4) L 03/09/19 07:25 [place] # 0.7 K/mm3 (0.0-0.8) 03/09/19 07:25 Eos # 0.1 K/mm3 (0.0-0.4) 03/09/19 07:25 Baso # 0.1 K/mm3 (0.0-0.1) 03/09/19 07:25 Seg Neutrophils % 64.8 % (40.0-70.0) 03/09/19 07:25 Seg Neutrophils # 3.8 K/mm3 (1.8-7.7) 03/09/19 07:25 PT 15.7 Sec. (12.2-14.9) H 03/11/19 05:14 INR 1.28 (0.87-1.13) H 03/11/19 05:14 APTT 26.3 Sec. (24.2-36.6) 03/05/19 22:42 1869.29 ng/mlDDU (0-234) H 03/05/19 22:42 Sodium 133 mmol/L (137-145) L 03/11/19 05:14 Potassium 4.2 mmol/L (3.6-5.0) 03/11/19 05:14 Chloride 95.0 mmol/L (98-107) L 03/11/19 05:14 Carbon Dioxide 25 mmol/L (22-30) 03/11/19 05:14 17 mmol/L 03/11/19 05:14 BUN 35 mg/dL (9-20) H 03/11/19 05:14 2.0 mg/dL (0.8-1.5) H 03/11/19 05:14 Estimated GFR 43 ml/min 03/11/19 05:14 18 % 03/11/19 05:14 Glucose 91 mg/dL (75-100) 03/11/19 05:14 POC Glucose 127 (70-105) H 03/11/19 15:51 5.6 % (4-6) 03/06/19 02:19 308 Mosm/kg 03/06/19 09:55 15.2 mg/dL (3.5-7.6) H 03/06/19 09:55 Calcium 9.0 mg/dL (8.4-10.2) 03/11/19 05:14 Phosphorus 3.60 mg/dL (2.5-4.5) 03/10/19 06:07 Magnesium 2.00 mg/dL (1.7-2.3) 03/11/19 05:14 157 units/L (91-180) 03/10/19 06:07 80 units/L (55-170) 03/05/19 22:42 CK-MB (CK-2) 2.2 ng/mL (0.0-4.0) 03/05/19 22:42 CK-MB (CK-2) Rel Index 2.7 (0-4) 03/05/19 22:42 0.019 ng/mL (0.00-0.029) 03/06/19 05:56 7.7 g/dL (6.3-8.2) 03/10/19 06:07 Triglycerides 82 mg/dL (2-149) 03/06/19 05:56 Cholesterol 135 mg/dL (50-199) 03/06/19 05:56 97 mg/dL (50-130) 03/06/19 05:56 26 mg/dL (40-59) L 03/06/19 05:56 5.19 % 03/06/19 05:56 TSH 3.420 mlU/mL (0.270-4.200) 03/11/19 10:17 Free T4 1.50 ng/dL (0.76-1.46) H 03/11/19 10:17 33.0 mg/dL (0.1-20.0) H 03/06/19 16:10 91 mmol/L 03/06/19 16:10 5 mg/dL (5-11.8) 03/06/19 16:10 Fluid Type Pleural 03/09/19 Unknown Fluid Color Yellow 03/09/19 Unknown Fluid Appearance Cloudy 03/09/19 Unknown Fluid WBC 205 /mm3 03/09/19 Unknown Fluid RBC 187 /mm3 03/09/19 Unknown Fluid Seg Neutrophils 7.0 % 03/09/19 Unknown Fluid Lymphocytes 25.0 % 03/09/19 Unknown Fluid Reactive Lymphs 0 % 03/09/19 Unknown Fluid Monocytes 68.0 % 03/09/19 Unknown Fluid Eosinophils 0 % 03/09/19 Unknown Fluid Basophils 0 % 03/09/19 Unknown Active Medications - Current Medications Current Medications: Generic Name Dose Route Start Last Admin Trade Name Freq PRN Reason Stop Dose Admin Acetaminophen 650 mg 03/06/19 01:58 Tylenol PO Q4H PRN Pain MILD(1-3)/Fever >100.5/TRUJILLO Albuterol 2.5 mg 03/06/19 01:58 03/11/19 09:56 Proventil IH 2.5 mg Q3HRT PRN Administration Shortness Of Breath Apixaban 5 mg 03/11/19 22:00 Eliquis PO Q12HR [facility] Protocol Aspirin 81 mg 03/07/19 10:00 03/11/19 09:50 Baby Aspirin PO 81 mg QDAY [facility] Administration Atorvastatin Calcium 40 mg 03/06/19 22:00 03/10/19 21:12 Lipitor PO 40 mg QHS [facility] Administration Budesonide 0.5 mg 03/06/19 08:00 03/11/19 09:56 Pulmicort IH 0.5 mg Q12HRT [facility] Administration Carvedilol 3.125 mg 03/08/19 10:00 03/11/19 15:00 Coreg PO 3.125 mg BID [facility] Administration Dextrose 50 ml 03/06/19 02:00 D50w (25gm) Syringe IV PRN PRN Hypoglycemia Docusate Sodium 100 mg 03/06/19 10:00 03/11/19 09:50 Colace PO 100 mg BID [facility] Administration Guaifenesin 600 mg 03/06/19 10:00 03/11/19 09:50 Mucinex Er PO 600 mg BID [facility] Administration Hydralazine HCl 100 mg 03/06/19 06:00 03/11/19 15:01 Apresoline PO Not Given Q8HR [facility] Levofloxacin/Dextrose 750 mg in 150 mls @ 150 mls/hr 03/06/19 10:00 03/11/19 12:25 Levaquin 750mg/150ml IV 03/12/19 10:59 Infused Q24HR [facility] Infusion Protocol Insulin Human Lispro 0 unit 03/06/19 07:30 03/11/19 17:41 Humalog SUB-Q Not Given ACHS [facility] Protocol Lorazepam 2 mg 03/09/19 17:06 Ativan IV Q2H PRN Seizures Metoclopramide HCl 10 mg 03/08/19 02:23 Reglan IV Q6H PRN Nausea And Vomiting Nitroglycerin 0.4 mg 03/06/19 02:01 Nitrostat SL Q5M PRN Chest Pain Ondansetron HCl 4 mg 03/06/19 01:58 Zofran IV Q8H PRN Nausea And Vomiting Oxycodone/Acetaminophen 1 tab 03/08/19 02:43 03/11/19 16:14 Percocet 5/325 PO 1 tab Q4H PRN Administration Pain, Moderate (4-6) Sodium Chloride 10 ml 03/06/19 10:00 03/11/19 09:52 Sodium Chloride Flush Syringe 10 Ml IV 10 ml BID [facility] Administration Sodium Chloride 10 ml 03/06/19 01:58 Sodium Chloride Flush Syringe 10 Ml IV PRN PRN LINE FLUSH
[2019-03-11] MEDS: ELIQUIS PO SCH (21:00)
[2019-03-12] MEDS: PERCOCET 5/325 PO PRN ×4 (03:23→22:11)
[2019-03-12] MEDS: APRESOLINE PO SCH ×3 (05:34→22:00)
[2019-03-12 06:48] LABS: INR 1.38 (0.87-1.13)
[2019-03-12 06:58] LABS: Calcium 9.2 mg/dL (8.4-10.2)
[2019-03-12] MEDS: HumaLOG SUB-Q SCH ×4 (07:30→22:00)
[2019-03-12] MEDS: PULMICORT IH SCH ×2 (08:22→21:16)
[2019-03-12] MEDS: PROVENTIL IH PRN (08:22)
--- NOTE | 2019-03-12 09:14 | Progress Note ---
Assessment and Plan Impression 1. Chronic combined systolic and diastolic heart failure 2. Chronic atrial fibrillation 3. Dilated ischemic cardiomyopathy. EF 15-20% 4. Essential hypertension 5. Type 2 diabetes mellitus 6. Chronic obstructive pulmonary disease 7. Presence of the ICD 8. CKD stage 3 9. Pleural effusion Plan His serum creatinine is stable. 2.0 today. Suspect a possible prerenal component. Continue to hold his torsemide for now . Baseline creatinine most likely 1.7-1.8 . Patient does have knowledge of prior renal dysfunction. He used to follow-up with a coil cutter in [place]. Renal ultrasound consistent with chronic kidney disease. cards and pulm condition noted Monitor fluid status and electrolytes closely Patient is status post thoracentesis 03/11/2019 Subjective Date of service: 03/12/19 Principal diagnosis: ckd 3 Interval history: Patient is comfortable. Shortness of breath is better. Denies any nausea or vomiting. Objective - Vital Signs Vital signs: Vital Signs - 12hr 03/11/19 03/12/19 03/12/19 23:56 00:00 03:16 Temperature 98.1 F 97.6 F Pulse Rate 52 L 87 76 Respiratory 18 16 Rate Blood Pressure 108/76 109/75 O2 Sat by Pulse 96 98 Oximetry 03/12/19 03/12/19 08:32 09:00 Temperature 98.3 F Pulse Rate 74 Respiratory 18 20 Rate Blood Pressure 109/86 O2 Sat by Pulse 99 Oximetry - General Appearance General appearance: well-developed, well-nourished, appears stated age EENT: PERRL, mucous membranes moist Neck: no JVD, no thyromegaly, no carotid bruit, supple Respiratory: Present: Decreased Breath Sounds (at the bases) Cardiology: irregularly irregular, normal heart rate, S1S2, no murmurs Gastrointestinal: normal, normoactive bowel sounds Integumentary: no rash, other (no edema) - Lab 03/09/19 07:25 03/12/19 05:32 Most recent lab results Calcium 9.2 mg/dL (8.4-10.2) 03/12/19 05:32 Phosphorus 3.60 mg/dL (2.5-4.5) 03/10/19 06:07 Magnesium 2.00 mg/dL (1.7-2.3) 03/11/19 05:14 33.0 mg/dL (0.1-20.0) H 03/06/19 16:10 91 mmol/L 03/06/19 16:10 5 mg/dL (5-11.8) 03/06/19 16:10 Medications & Allergies - Medications Allergies/Adverse Reactions: Allergies Penicillins Allergy (Verified 03/05/19 22:41) Itching strawberry Allergy (Verified 03/05/19 22:41) Hives Home Medications: Home Medications Medication Instructions Recorded Confirmed Last Taken Type Apixaban [Eliquis] 1 tab PO BID 03/05/19 03/05/19 Unknown History Clindamycin [Clindamycin CAP] 150 mg PO TID 03/05/19 03/05/19 Unknown History Lisinopril [Zestril TAB] 1 tab PO DAILY 03/05/19 03/05/19 Unknown History Torsemide [Demadex] 2 tab PO BID 03/05/19 03/05/19 Unknown History hydrALAZINE [Apresoline TAB] 1 tab PO Q8HR 03/05/19 03/05/19 Unknown History Active Medications: Generic Name Dose Route Start Last Admin Trade Name Freq PRN Reason Stop Dose Admin Acetaminophen 650 mg 03/06/19 01:58 Tylenol PO Q4H PRN Pain MILD(1-3)/Fever >100.5/TRUJILLO Albuterol 2.5 mg 03/06/19 01:58 03/12/19 08:22 Proventil IH 2.5 mg Q3HRT PRN Administration Shortness Of Breath Apixaban 5 mg 03/11/19 22:00 03/11/19 21:00 Eliquis PO 5 mg Q12HR [facility] Administration Protocol Aspirin 81 mg 03/07/19 10:00 03/11/19 09:50 Baby Aspirin PO 81 mg QDAY [facility] Administration Atorvastatin Calcium 40 mg 03/06/19 22:00 03/11/19 21:01 Lipitor PO 40 mg QHS [facility] Administration Budesonide 0.5 mg 03/06/19 08:00 03/12/19 08:22 Pulmicort IH 0.5 mg Q12HRT [facility] Administration Carvedilol 3.125 mg 03/08/19 10:00 03/11/19 21:02 Coreg PO Not Given BID [facility] Dextrose 50 ml 03/06/19 02:00 D50w (25gm) Syringe IV PRN PRN Hypoglycemia Docusate Sodium 100 mg 03/06/19 10:00 03/11/19 21:00 Colace PO 100 mg BID [facility] Administration Guaifenesin 600 mg 03/06/19 10:00 03/11/19 21:01 Mucinex Er PO 600 mg BID [facility] Administration Hydralazine HCl 100 mg 03/06/19 06:00 03/12/19 05:34 Apresoline PO Not Given Q8HR [facility] Levofloxacin/Dextrose 750 mg in 150 mls @ 150 mls/hr 03/06/19 10:00 03/11/19 12:25 Levaquin 750mg/150ml IV 03/12/19 10:59 Infused Q24HR [facility] Infusion Protocol Insulin Human Lispro 0 unit 03/06/19 07:30 03/11/19 21:43 Humalog SUB-Q Not Given ACHS [facility] Protocol Lorazepam 2 mg 03/09/19 17:06 Ativan IV Q2H PRN Seizures Metoclopramide HCl 10 mg 03/08/19 02:23 Reglan IV Q6H PRN Nausea And Vomiting Nitroglycerin 0.4 mg 03/06/19 02:01 Nitrostat SL Q5M PRN Chest Pain Ondansetron HCl 4 mg 03/06/19 01:58 Zofran IV Q8H PRN Nausea And Vomiting Oxycodone/Acetaminophen 1 tab 03/08/19 02:43 03/12/19 09:00 Percocet 5/325 PO 1 tab Q4H PRN Administration Pain, Moderate (4-6) Sodium Chloride 10 ml 03/06/19 10:00 03/11/19 21:02 Sodium Chloride Flush Syringe 10 Ml IV 10 ml BID [facility] Administration Sodium Chloride 10 ml 03/06/19 01:58 Sodium Chloride Flush Syringe 10 Ml IV PRN PRN LINE FLUSH
--- NOTE | 2019-03-12 09:18 | Progress Note ---
Assessment and Plan Assessment and plan: Acute hypoxic respiratory failure. Etiology secondary to pleural effusion, systolic heart failure, COPD and +/-pulmonary embolism. Right pleural effusion. ? Pulmonary embolism. Patient status post tho racentesis. Follow-up pleural fluid analysis and repeat chest x-ray. Pulmonary embolism. On Eliquis. Pulmonary not convinced. VQ scan reports intermediate probability for PE. Chronic systolic heart failure. Continue Coreg and hydralazine. Chronic atrial fibrillation. Continue eliquis Nonischemic cardiomyopathy. Pt reports recent negative LHC at [place] 3 months ago; records not available for review. EF 15-20% by echo 11/2018 AICD. Hypertension. Continue antihypertensive medications. Diabetes mellitus type 2. Continue Accu-Cheks and sliding scale COPD. Compensated Chronic kidney disease. History Interval history: No new issues overnight. Hospitalist Physical - Constitutional Vitals: Temp Pulse Resp BP Pulse Ox 98.3 F 74 20 109/86 99 03/12/19 08:32 03/12/19 08:32 03/12/19 09:00 03/12/19 08:32 03/12/19 08:32 General appearance: Present: no acute distress, well-nourished - EENT Eyes: Present: PERRL, EOM intact ENT: hearing intact, clear oral mucosa, dentition normal - Neck Neck: Present: supple, normal ROM - Respiratory Respiratory effort: normal Respiratory: bilateral: CTA - Cardiovascular Rhythm: regular Heart Sounds: Present: S1 & S2. Absent: gallop, rub - Extremities Extremities: no ischemia, No edema, Full ROM - Abdominal General gastrointestinal: soft, non-tender, non-distended, normal bowel sounds - Integumentary Integumentary: Present: clear, warm, dry - Neurologic Neurologic: CNII-XII intact, moves all extremities Results - Labs CBC & Chem 7: 03/09/19 07:25 03/12/19 05:32 Labs: Laboratory Last Values WBC 5.8 K/mm3 (4.5-11.0) 03/09/19 07:25 RBC 4.10 M/mm3 (3.65-5.03) 03/09/19 07:25 Hgb 11.7 gm/dl (11.8-15.2) L 03/09/19 07:25 Hct 35.7 % (35.5-45.6) 03/09/19 07:25 MCV 87 fl (84-94) 03/09/19 07:25 MCH 29 pg (28-32) 03/09/19 07:25 MCHC 33 % (32-34) 03/09/19 07:25 RDW 19.9 % (13.2-15.2) H 03/09/19 07:25 Plt Count 191 K/mm3 (140-440) 03/09/19 07:25 Lymph % (Auto) 18.1 % (13.4-35.0) 03/09/19 07:25 Oliver % (Auto) 12.9 % (0.0-7.3) H 03/09/19 07:25 Eos % (Auto) 2.3 % (0.0-4.3) 03/09/19 07:25 Baso % (Auto) 1.9 % (0.0-1.8) H 03/09/19 07:25 Lymph # 1.1 K/mm3 (1.2-5.4) L 03/09/19 07:25 Oliver # 0.7 K/mm3 (0.0-0.8) 03/09/19 07:25 Eos # 0.1 K/mm3 (0.0-0.4) 03/09/19 07:25 Baso # 0.1 K/mm3 (0.0-0.1) 03/09/19 07:25 Seg Neutrophils % 64.8 % (40.0-70.0) 03/09/19 07:25 Seg Neutrophils # 3.8 K/mm3 (1.8-7.7) 03/09/19 07:25 PT 16.6 Sec. (12.2-14.9) H 03/12/19 05:32 INR 1.38 (0.87-1.13) H 03/12/19 05:32 APTT 26.3 Sec. (24.2-36.6) 03/05/19 22:42 1869.29 ng/mlDDU (0-234) H 03/05/19 22:42 Sodium 135 mmol/L (137-145) L 03/12/19 05:32 Potassium 4.0 mmol/L (3.6-5.0) 03/12/19 05:32 Chloride 94.8 mmol/L (98-107) L 03/12/19 05:32 Carbon Dioxide 27 mmol/L (22-30) 03/12/19 05:32 17 mmol/L 03/12/19 05:32 BUN 35 mg/dL (9-20) H 03/12/19 05:32 2.0 mg/dL (0.8-1.5) H 03/12/19 05:32 Estimated GFR 43 ml/min 03/12/19 05:32 18 % 03/12/19 05:32 Glucose 102 mg/dL (75-100) H 03/12/19 05:32 POC Glucose 70 (70-105) 03/12/19 08:39 5.6 % (4-6) 03/06/19 02:19 308 Mosm/kg 03/06/19 09:55 15.2 mg/dL (3.5-7.6) H 03/06/19 09:55 Calcium 9.2 mg/dL (8.4-10.2) 03/12/19 05:32 Phosphorus 3.60 mg/dL (2.5-4.5) 03/10/19 06:07 Magnesium 2.00 mg/dL (1.7-2.3) 03/11/19 05:14 157 units/L (91-180) 03/10/19 06:07 80 units/L (55-170) 03/05/19 22:42 CK-MB (CK-2) 2.2 ng/mL (0.0-4.0) 03/05/19 22:42 CK-MB (CK-2) Rel Index 2.7 (0-4) 03/05/19 22:42 0.019 ng/mL (0.00-0.029) 03/06/19 05:56 7.7 g/dL (6.3-8.2) 03/10/19 06:07 Triglycerides 82 mg/dL (2-149) 03/06/19 05:56 Cholesterol 135 mg/dL (50-199) 03/06/19 05:56 97 mg/dL (50-130) 03/06/19 05:56 26 mg/dL (40-59) L 03/06/19 05:56 5.19 % 03/06/19 05:56 TSH 3.420 mlU/mL (0.270-4.200) 03/11/19 10:17 Free T4 1.50 ng/dL (0.76-1.46) H 03/11/19 10:17 33.0 mg/dL (0.1-20.0) H 03/06/19 16:10 91 mmol/L 03/06/19 16:10 5 mg/dL (5-11.8) 03/06/19 16:10 Fluid Type Pleural 03/09/19 Unknown Fluid Color Yellow 03/09/19 Unknown Fluid Appearance Cloudy 03/09/19 Unknown Fluid WBC 205 /mm3 03/09/19 Unknown Fluid RBC 187 /mm3 03/09/19 Unknown Fluid Seg Neutrophils 7.0 % 03/09/19 Unknown Fluid Lymphocytes 25.0 % 03/09/19 Unknown Fluid Reactive Lymphs 0 % 03/09/19 Unknown Fluid Monocytes 68.0 % 03/09/19 Unknown Fluid Eosinophils 0 % 03/09/19 Unknown Fluid Basophils 0 % 03/09/19 Unknown Active Medications - Current Medications Current Medications: Generic Name Dose Route Start Last Admin Trade Name Freq PRN Reason Stop Dose Admin Acetaminophen 650 mg 03/06/19 01:58 Tylenol PO Q4H PRN Pain MILD(1-3)/Fever >100.5/TRUJILLO Albuterol 2.5 mg 03/06/19 01:58 03/12/19 08:22 Proventil IH 2.5 mg Q3HRT PRN Administration Shortness Of Breath Apixaban 5 mg 03/11/19 22:00 03/11/19 21:00 Eliquis PO 5 mg Q12HR SOUMYA Administration Protocol Aspirin 81 mg 03/07/19 10:00 03/11/19 09:50 Baby Aspirin PO 81 mg QDAY SOUMYA Administration Atorvastatin Calcium 40 mg 03/06/19 22:00 03/11/19 21:01 Lipitor PO 40 mg QHS SOUMYA Administration Budesonide 0.5 mg 03/06/19 08:00 03/12/19 08:22 Pulmicort IH 0.5 mg Q12HRT OSUMYA Administration Carvedilol 3.125 mg 03/08/19 10:00 03/11/19 21:02 Coreg PO Not Given BID SOUMYA Dextrose 50 ml 03/06/19 02:00 D50w (25gm) Syringe IV PRN PRN Hypoglycemia Docusate Sodium 100 mg 03/06/19 10:00 03/11/19 21:00 Colace PO 100 mg BID SOUMYA Administration Guaifenesin 600 mg 03/06/19 10:00 03/11/19 21:01 Mucinex Er PO 600 mg BID SOUMYA Administration Hydralazine HCl 100 mg 03/06/19 06:00 03/12/19 05:34 Apresoline PO Not Given Q8HR [facility] Levofloxacin/Dextrose 750 mg in 150 mls @ 150 mls/hr 03/06/19 10:00 03/11/19 12:25 Levaquin 750mg/150ml IV 03/12/19 10:59 Infused Q24HR [facility] Infusion Protocol Insulin Human Lispro 0 unit 03/06/19 07:30 03/11/19 21:43 Humalog SUB-Q Not Given ACHS [facility] Protocol Lorazepam 2 mg 03/09/19 17:06 Ativan IV Q2H PRN Seizures Metoclopramide HCl 10 mg 03/08/19 02:23 Reglan IV Q6H PRN Nausea And Vomiting Nitroglycerin 0.4 mg 03/06/19 02:01 Nitrostat SL Q5M PRN Chest Pain Ondansetron HCl 4 mg 03/06/19 01:58 Zofran IV Q8H PRN Nausea And Vomiting Oxycodone/Acetaminophen 1 tab 03/08/19 02:43 03/12/19 09:00 Percocet 5/325 PO 1 tab Q4H PRN Administration Pain, Moderate (4-6) Sodium Chloride 10 ml 03/06/19 10:00 03/11/19 21:02 Sodium Chloride Flush Syringe 10 Ml IV 10 ml BID SOUMYA Administration Sodium Chloride 10 ml 03/06/19 01:58 Sodium Chloride Flush Syringe 10 Ml IV PRN PRN LINE FLUSH
[2019-03-12] MEDS: LEVAQUIN 750MG/150ML 750 MG/150 ML BAG IV SCH (10:13)
[2019-03-12] MEDS: MUCINEX ER PO SCH ×2 (10:14→22:12)
[2019-03-12] MEDS: ELIQUIS PO SCH ×2 (10:14→22:12)
[2019-03-12] MEDS: BABY ASPIRIN PO SCH (10:14)
[2019-03-12] MEDS: COLACE PO SCH ×2 (10:14→22:12)
[2019-03-12] MEDS: COREG PO SCH ×2 (10:15→22:00)
[2019-03-12] MEDS: SODIUM CHLORIDE FLUSH SYRINGE 10 ML IV SCH ×2 (10:16→22:13)
--- NOTE | 2019-03-12 11:23 | Progress Note ---
Assessment and Plan Right Pleural effusion VQ scan reports intermediate probability for PE. Patient reports compliance of Eliquis as an outpatient. Chest pain, atypical Chronic systolic heart failure Chronic atrial fibrillation Eliquis has been stopped and instead changed to warfarin for oral anticoagulation. Hx of Nonischemic cardiomyopathy pt reports recent negative LHC at [place] 3 months ago; records not available for review. EF 15-20% by echo 11/2018 Presence of the ICD Essential hypertension Type 2 diabetes mellitus Chronic obstructive pulmonary disease CKD Recommend: We will increase beta blockers to suppression of NSVT. Continue medical therapy for nonischemic cardiomyopathy and chronic atrial fibrillation as tolerated. Subjective Date of service: 03/12/19 Principal diagnosis: ckd 3 Interval history: Short burst of NSVT noted on telemetry this morning. Patient remained asymptomatic. Objective Vital Signs Temp Pulse Pulse Resp Resp BP Pulse Ox 03/12/19 10:15 74 109/86 03/12/19 09:00 20 03/12/19 08:32 98.3 F 74 18 109/86 99 03/12/19 03:16 97.6 F 76 16 109/75 98 03/12/19 00:00 87 03/11/19 23:56 98.1 F 52 L 18 108/76 96 03/11/19 21:09 78 20 03/11/19 21:01 99 H 20 98 03/11/19 19:28 98.2 F 71 16 103/81 96 03/11/19 15:47 97.6 F 18 134/81 03/11/19 15:00 99 H 104/79 03/11/19 11:41 97.6 F 18 104/71 - Physical Examination General: No Apparent Distress HEENT: Positive: PERRL Neck: Positive: trachea midline Cardiac: Positive: irregularly irregular Lungs: Positive: Decreased Breath Sounds Neuro: Positive: Grossly Intact Abdomen: Positive: Unremarkable Extremities: Absent: edema - Labs and Meds Coagulation 03/12/19 Range/Units 05:32 PT 16.6 H (12.2-14.9) Sec. INR 1.38 H (0.87-1.13) Comprehensive Metabolic Panel 03/12/19 Range/Units 05:32 Sodium 135 L (137-145) mmol/L Potassium 4.0 (3.6-5.0) mmol/L Chloride 94.8 L (98-107) mmol/L Carbon Dioxide 27 (22-30) mmol/L BUN 35 H (9-20) mg/dL Creatinine 2.0 H (0.8-1.5) mg/dL Glucose 102 H (75-100) mg/dL Calcium 9.2 (8.4-10.2) mg/dL
--- NOTE | 2019-03-12 12:16 | Progress Note ---
Assessment and Plan Imp: 1. Pleural effusion on R of ? etiology 2. Chronic nicotine dependence, cigarettes 3. NICMP 4. Chronic systolic CHF 5. ESTEVAN Rec: 1. Cont. Levaquin x 5-7 days 2. Doubt PE on Eliquis; V/Q results not helpful 3. Diagnostic and therapeutic thoracentesis done; f/u on PFA 4. Needs f/u as outpatient to review pleural fluid results and repeat CXR to check for re-accumulation Plan of care reviewed w/ patient, he understands/agrees Subjective Date of service: 03/12/19 Principal diagnosis: ckd 3 Interval history: No events. SOB and chest pain are both better. Has a dry cough after tap done. Active Medications Acetaminophen (Tylenol) 650 mg PO Q4H PRN PRN Reason: Pain MILD(1-3)/Fever >100.5/TRUJILLO Albuterol (Proventil) 2.5 mg IH Q3HRT PRN PRN Reason: Shortness Of Breath Last Admin: 03/12/19 08:22 Dose: 2.5 mg Documented by: Apixaban (Eliquis) 5 mg PO Q12HR COUNTS INCLUDE 234 BEDS AT THE [facility]; Protocol Last Admin: 03/12/19 10:14 Dose: 5 mg Documented by: Aspirin (Baby Aspirin) 81 mg PO QDAY COUNTS INCLUDE 234 BEDS AT THE [facility] Last Admin: 03/12/19 10:14 Dose: 81 mg Documented by: Atorvastatin Calcium (Lipitor) 40 mg PO QHS COUNTS INCLUDE 234 BEDS AT THE [facility] Last Admin: 03/11/19 21:01 Dose: 40 mg Documented by: Budesonide (Pulmicort) 0.5 mg IH Q12HRT COUNTS INCLUDE 234 BEDS AT THE [facility] Last Admin: 03/12/19 08:22 Dose: 0.5 mg Documented by: Carvedilol (Coreg) 6.25 mg PO BID COUNTS INCLUDE 234 BEDS AT THE [facility] Dextrose (D50w (25gm) Syringe) 50 ml IV PRN PRN PRN Reason: Hypoglycemia Docusate Sodium (Colace) 100 mg PO BID COUNTS INCLUDE 234 BEDS AT THE [facility] Last Admin: 03/12/19 10:14 Dose: 100 mg Documented by: Guaifenesin (Mucinex Er) 600 mg PO BID COUNTS INCLUDE 234 BEDS AT THE [facility] Last Admin: 03/12/19 10:14 Dose: 600 mg Documented by: Hydralazine HCl (Apresoline) 100 mg PO Q8HR COUNTS INCLUDE 234 BEDS AT THE [facility] Last Admin: 03/12/19 05:34 Dose: Not Given Documented by: Insulin Human Lispro (Humalog) 0 unit SUB-Q ACHS SOUMYA; Protocol Last Admin: 03/12/19 07:30 Dose: Not Given Documented by: Lorazepam (Ativan) 2 mg IV Q2H PRN PRN Reason: Seizures Metoclopramide HCl (Reglan) 10 mg IV Q6H PRN PRN Reason: Nausea And Vomiting Nitroglycerin (Nitrostat) 0.4 mg SL Q5M PRN PRN Reason: Chest Pain Ondansetron HCl (Zofran) 4 mg IV Q8H PRN PRN Reason: Nausea And Vomiting Oxycodone/Acetaminophen (Percocet 5/325) 1 tab PO Q4H PRN PRN Reason: Pain, Moderate (4-6) Last Admin: 03/12/19 09:00 Dose: 1 tab Documented by: Sodium Chloride (Sodium Chloride Flush Syringe 10 Ml) 10 ml IV BID SOUMYA Last Admin: 03/12/19 10:16 Dose: 10 ml Documented by: Sodium Chloride (Sodium Chloride Flush Syringe 10 Ml) 10 ml IV PRN PRN PRN Reason: LINE FLUSH Objective Vital Signs - 12hr 03/12/19 03/12/19 03/12/19 03:16 08:32 09:00 Temperature 97.6 F 98.3 F Pulse Rate 76 74 Respiratory 16 18 20 Rate Blood Pressure 109/75 109/86 O2 Sat by Pulse 98 99 Oximetry 03/12/19 10:15 Temperature Pulse Rate 74 Respiratory Rate Blood Pressure 109/86 O2 Sat by Pulse Oximetry Constitutional: no acute distress, alert Eyes: non-icteric ENT: oropharynx moist Neck: supple Effort: normal Ascultation: Right: diminished breath sounds (base), Bilateral: clear Cardiovascular: regular rate and rhythm (no mrg) Gastrointestinal: normoactive bowel sounds, soft, non-tender, non-distended Integumentary: normal Extremities: no cyanosis Neurologic: normal mental status, non-focal exam, pupils equal and round, CN II- XII normal Psychiatric: mood appropriate, affect normal CBC and BMP: 03/09/19 07:25 03/12/19 05:32 ABG, PT/INR, D-dimer: PT/INR, D-dimer PT 16.6 Sec. (12.2-14.9) H 03/12/19 05:32 INR 1.38 (0.87-1.13) H 03/12/19 05:32 1869.29 ng/mlDDU (0-234) H 03/05/19 22:42 Abnormal lab findings: Abnormal Labs 03/05/19 03/05/19 03/05/19 22:42 22:42 22:42 Hgb 11.7 L Hct 35.1 L RDW 20.1 H Cassia % (Auto) 9.3 H Baso % (Auto) 2.6 H Lymph # Baso # 0.2 H Seg Neutrophils % PT 15.9 H INR 1.30 H D-Dimer 1869.29 H Sodium Potassium 5.6 H Chloride BUN 34 H Creatinine 1.8 H Glucose 102 H POC Glucose Uric Acid HDL Cholesterol Free T4 Urine Creatinine 03/06/19 03/06/19 03/06/19 02:19 02:19 05:56 Hgb Hct RDW 20.1 H Cassia % (Auto) 10.1 H Baso % (Auto) Lymph # 1.1 L Baso # Seg Neutrophils % PT INR D-Dimer Sodium Potassium 3.5 L D Chloride BUN 36 H Creatinine 1.9 H Glucose POC Glucose Uric Acid HDL Cholesterol 26 L Free T4 Urine Creatinine 03/06/19 03/06/19 03/06/19 09:55 11:29 16:10 Hgb Hct RDW Cassia % (Auto) Baso % (Auto) Lymph # Baso # Seg Neutrophils % PT INR D-Dimer Sodium Potassium Chloride BUN Creatinine Glucose POC Glucose 107 H Uric Acid 15.2 H HDL Cholesterol Free T4 Urine Creatinine 33.0 H 03/06/19 03/07/19 03/07/19 21:27 03:11 03:11 Hgb Hct RDW 19.9 H Cassia % (Auto) 10.2 H Baso % (Auto) Lymph # 0.9 L Baso # Seg Neutrophils % 71.3 H PT INR D-Dimer Sodium Potassium Chloride BUN 30 H Creatinine 1.8 H Glucose 103 H POC Glucose 108 H Uric Acid HDL Cholesterol Free T4 Urine Creatinine 03/07/19 03/07/19 03/07/19 11:18 17:08 20:41 Hgb Hct RDW Cassia % (Auto) Baso % (Auto) Lymph # Baso # Seg Neutrophils % PT INR D-Dimer Sodium Potassium Chloride BUN Creatinine Glucose POC Glucose 118 H 117 H 107 H Uric Acid HDL Cholesterol Free T4 Urine Creatinine 03/08/19 03/09/19 03/09/19 04:37 07:25 07:25 Hgb 11.7 L Hct RDW 19.9 H Cassia % (Auto) 12.9 H Baso % (Auto) 1.9 H Lymph # 1.1 L Baso # Seg Neutrophils % PT 17.6 H INR 1.48 H D-Dimer Sodium 136 L Potassium Chloride 97.4 L BUN 27 H Creatinine 1.7 H Glucose POC Glucose Uric Acid HDL Cholesterol Free T4 Urine Creatinine 03/09/19 03/09/19 03/09/19 07:25 11:48 16:20 Hgb Hct RDW Cassia % (Auto) Baso % (Auto) Lymph # Baso # Seg Neutrophils % PT INR D-Dimer Sodium Potassium Chloride 95.4 L BUN 28 H Creatinine 1.8 H Glucose POC Glucose 124 H 107 H Uric Acid HDL Cholesterol Free T4 Urine Creatinine 03/10/19 03/10/19 03/10/19 06:07 06:07 20:52 Hgb Hct RDW Cassia % (Auto) Baso % (Auto) Lymph # Baso # Seg Neutrophils % PT 16.9 H INR 1.41 H D-Dimer Sodium Potassium Chloride 97.0 L BUN 34 H Creatinine 2.2 H Glucose 119 H POC Glucose 107 H Uric Acid HDL Cholesterol Free T4 Urine Creatinine 03/11/19 03/11/19 03/11/19 05:14 05:14 10:17 Hgb Hct RDW Cassia % (Auto) Baso % (Auto) Lymph # Baso # Seg Neutrophils % PT 15.7 H INR 1.28 H D-Dimer Sodium 133 L Potassium Chloride 95.0 L BUN 35 H Creatinine 2.0 H Glucose POC Glucose Uric Acid HDL Cholesterol Free T4 1.50 H Urine Creatinine 03/11/19 03/11/19 03/12/19 11:45 15:51 05:32 Hgb Hct RDW Cassia % (Auto) Baso % (Auto) Lymph # Baso # Seg Neutrophils % PT 16.6 H INR 1.38 H D-Dimer Sodium Potassium Chloride BUN Creatinine Glucose POC Glucose 121 H 127 H Uric Acid HDL Cholesterol Free T4 Urine Creatinine 03/12/19 05:32 Hgb Hct RDW Cassia % (Auto) Baso % (Auto) Lymph # Baso # Seg Neutrophils % PT INR D-Dimer Sodium 135 L Potassium Chloride 94.8 L BUN 35 H Creatinine 2.0 H Glucose 102 H POC Glucose Uric Acid HDL Cholesterol Free T4 Urine Creatinine Chest x-ray: report reviewed, image reviewed (RLL infiltrate; R effusion better)
[2019-03-13] MEDS: PERCOCET 5/325 PO PRN ×5 (03:05→22:24)
[2019-03-13 06:09] LABS: INR 1.52 (0.87-1.13)
[2019-03-13] MEDS: APRESOLINE PO SCH ×3 (06:14→22:20)
[2019-03-13 06:33] LABS: Calcium 8.7 mg/dL (8.4-10.2)
[2019-03-13] MEDS: HumaLOG SUB-Q SCH ×3 (07:30→18:34)
[2019-03-13] MEDS: PROVENTIL IH PRN (07:33)
[2019-03-13] MEDS: PULMICORT IH SCH ×2 (07:33→20:21)
[2019-03-13] MEDS: COLACE PO SCH ×2 (09:38→22:21)
[2019-03-13] MEDS: SODIUM CHLORIDE FLUSH SYRINGE 10 ML IV SCH ×2 (09:38→22:21)
[2019-03-13] MEDS: MUCINEX ER PO SCH ×2 (09:38→22:20)
[2019-03-13] MEDS: BABY ASPIRIN PO SCH (09:38)
[2019-03-13] MEDS: COREG PO SCH ×2 (09:38→22:21)
[2019-03-13] MEDS: ELIQUIS PO SCH ×2 (09:38→22:21)
--- NOTE | 2019-03-13 11:01 | Progress Note ---
Assessment and Plan Assessment and plan: Acute hypoxic respiratory failure. Etiology secondary to pleural effusion, systolic heart failure, COPD and +/-pulmonary embolism. Right pleural effusion. ? Pulmonary embolism. Patient status post tho racentesis. Follow-up pleural fluid analysis and repeat chest x-ray in a.m. Pulmonary embolism. On Eliquis. Pulmonary not convinced. VQ scan reports intermediate probability for PE. Chronic systolic heart failure. Continue Coreg and hydralazine. Chronic atrial fibrillation. Continue eliquis Nonischemic cardiomyopathy. Pt reports recent negative LHC at [place] 3 months ago; records not available for review. EF 15-20% by echo 11/2018 AICD. Hypertension. Continue antihypertensive medications. Diabetes mellitus type 2. Continue Accu-Cheks and sliding scale COPD. Compensated Chronic kidney disease. Disposition. Anticipate discharge in a.m. chest x-ray okay. History Interval history: No new issues overnight. Patient still complains of cough. Hospitalist Physical - Constitutional Vitals: Temp Pulse Resp BP Pulse Ox 97.5 F L 84 18 111/85 99 03/13/19 05:03 03/13/19 07:33 03/13/19 07:33 03/13/19 05:02 03/13/19 07:33 General appearance: Present: no acute distress, well-nourished - EENT Eyes: Present: PERRL, EOM intact ENT: hearing intact, clear oral mucosa, dentition normal - Neck Neck: Present: supple, normal ROM - Respiratory Respiratory effort: normal Respiratory: bilateral: CTA - Cardiovascular Rhythm: regular Heart Sounds: Present: S1 & S2. Absent: gallop, rub - Extremities Extremities: no ischemia, No edema, Full ROM - Abdominal General gastrointestinal: soft, non-tender, non-distended, normal bowel sounds - Integumentary Integumentary: Present: clear, warm, dry - Neurologic Neurologic: CNII-XII intact, moves all extremities Results - Labs CBC & Chem 7: 03/09/19 07:25 03/13/19 05:17 Labs: Laboratory Last Values WBC 5.8 K/mm3 (4.5-11.0) 03/09/19 07:25 RBC 4.10 M/mm3 (3.65-5.03) 03/09/19 07:25 Hgb 11.7 gm/dl (11.8-15.2) L 07/09/19 07:25 Hct 35.7 % (35.5-45.6) 03/09/19 07:25 MCV 87 fl (84-94) 03/09/19 07:25 MCH 29 pg (28-32) 03/09/19 07:25 MCHC 33 % (32-34) 03/09/19 07:25 RDW 19.9 % (13.2-15.2) H 03/09/19 07:25 Plt Count 191 K/mm3 (140-440) 03/09/19 07:25 Lymph % (Auto) 18.1 % (13.4-35.0) 03/09/19 07:25 Christian % (Auto) 12.9 % (0.0-7.3) H 03/09/19 07:25 Eos % (Auto) 2.3 % (0.0-4.3) 03/09/19 07:25 Baso % (Auto) 1.9 % (0.0-1.8) H 03/09/19 07:25 Lymph # 1.1 K/mm3 (1.2-5.4) L 03/09/19 07:25 Christian # 0.7 K/mm3 (0.0-0.8) 03/09/19 07:25 Eos # 0.1 K/mm3 (0.0-0.4) 03/09/19 07:25 Baso # 0.1 K/mm3 (0.0-0.1) 03/09/19 07:25 Seg Neutrophils % 64.8 % (40.0-70.0) 03/09/19 07:25 Seg Neutrophils # 3.8 K/mm3 (1.8-7.7) 03/09/19 07:25 PT 17.9 Sec. (12.2-14.9) H 03/13/19 05:17 INR 1.52 (0.87-1.13) H 03/13/19 05:17 APTT 26.3 Sec. (24.2-36.6) 03/05/19 22:42 1869.29 ng/mlDDU (0-234) H 03/05/19 22:42 Sodium 134 mmol/L (137-145) L 03/13/19 05:17 Potassium 4.1 mmol/L (3.6-5.0) 03/13/19 05:17 Chloride 97.6 mmol/L (98-107) L 03/13/19 05:17 Carbon Dioxide 28 mmol/L (22-30) 03/13/19 05:17 13 mmol/L 03/13/19 05:17 BUN 30 mg/dL (9-20) H 03/13/19 05:17 1.7 mg/dL (0.8-1.5) H 03/13/19 05:17 Estimated GFR 51 ml/min 03/13/19 05:17 18 % 03/13/19 05:17 Glucose 93 mg/dL (75-100) 03/13/19 05:17 POC Glucose 118 (70-105) H 03/13/19 07:25 5.6 % (4-6) 03/06/19 02:19 308 Mosm/kg 03/06/19 09:55 15.2 mg/dL (3.5-7.6) H 03/06/19 09:55 Calcium 8.7 mg/dL (8.4-10.2) 03/13/19 05:17 Phosphorus 3.60 mg/dL (2.5-4.5) 03/10/19 06:07 Magnesium 2.00 mg/dL (1.7-2.3) 03/11/19 05:14 157 units/L (91-180) 03/10/19 06:07 80 units/L (55-170) 03/05/19 22:42 CK-MB (CK-2) 2.2 ng/mL (0.0-4.0) 03/05/19 22:42 CK-MB (CK-2) Rel Index 2.7 (0-4) 03/05/19 22:42 0.019 ng/mL (0.00-0.029) 03/06/19 05:56 7.7 g/dL (6.3-8.2) 03/10/19 06:07 Triglycerides 82 mg/dL (2-149) 03/06/19 05:56 Cholesterol 135 mg/dL (50-199) 03/06/19 05:56 97 mg/dL (50-130) 03/06/19 05:56 26 mg/dL (40-59) L 03/06/19 05:56 5.19 % 03/06/19 05:56 TSH 3.420 mlU/mL (0.270-4.200) 03/11/19 10:17 Free T4 1.50 ng/dL (0.76-1.46) H 03/11/19 10:17 33.0 mg/dL (0.1-20.0) H 03/06/19 16:10 91 mmol/L 03/06/19 16:10 5 mg/dL (5-11.8) 03/06/19 16:10 Fluid Type Pleural 03/09/19 Unknown Fluid Color Yellow 03/09/19 Unknown Fluid Appearance Cloudy 03/09/19 Unknown Fluid WBC 205 /mm3 03/09/19 Unknown Fluid RBC 187 /mm3 03/09/19 Unknown Fluid Seg Neutrophils 7.0 % 03/09/19 Unknown Fluid Lymphocytes 25.0 % 03/09/19 Unknown Fluid Reactive Lymphs 0 % 03/09/19 Unknown Fluid Monocytes 68.0 % 03/09/19 Unknown Fluid Eosinophils 0 % 03/09/19 Unknown Fluid Basophils 0 % 03/09/19 Unknown Active Medications - Current Medications Current Medications: Generic Name Dose Route Start Last Admin Trade Name Freq PRN Reason Stop Dose Admin Acetaminophen 650 mg 03/06/19 01:58 Tylenol PO Q4H PRN Pain MILD(1-3)/Fever >100.5/TRUJILLO Albuterol 2.5 mg 03/06/19 01:58 03/13/19 07:33 Proventil IH 2.5 mg Q3HRT PRN Administration Shortness Of Breath Apixaban 5 mg 03/11/19 22:00 03/13/19 09:38 Eliquis PO 5 mg Q12HR SOUMYA Administration Protocol Aspirin 81 mg 03/07/19 10:00 03/13/19 09:38 Baby Aspirin PO 81 mg QDAY SOUMYA Administration Atorvastatin Calcium 40 mg 03/06/19 22:00 03/12/19 22:12 Lipitor PO 40 mg QHS SOUMYA Administration Budesonide 0.5 mg 03/06/19 08:00 03/13/19 07:33 Pulmicort IH 0.5 mg Q12HRT SOUMYA Administration Carvedilol 6.25 mg 03/12/19 22:00 03/13/19 09:38 Coreg PO 6.25 mg BID [facility]MY[facility] Administration Dextrose 50 ml 03/06/19 02:00 D50w (25gm) Syringe IV PRN PRN Hypoglycemia Docusate Sodium 100 mg 03/06/19 10:00 03/13/19 09:38 Colace PO 100 mg BID [facility] Administration Guaifenesin 600 mg 03/06/19 10:00 03/13/19 09:38 Mucinex Er PO 600 mg BID [facility]MY[facility] Administration Hydralazine HCl 100 mg 03/06/19 06:00 03/13/19 06:14 Apresoline PO Not Given Q8HR [facility] Insulin Human Lispro 0 unit 03/06/19 07:30 03/13/19 07:30 Humalog SUB-Q Not Given ACHS [facility] Protocol Lorazepam 2 mg 03/09/19 17:06 Ativan IV Q2H PRN Seizures Metoclopramide HCl 10 mg 03/08/19 02:23 Reglan IV Q6H PRN Nausea And Vomiting Nitroglycerin 0.4 mg 03/06/19 02:01 Nitrostat SL Q5M PRN Chest Pain Ondansetron HCl 4 mg 03/06/19 01:58 Zofran IV Q8H PRN Nausea And Vomiting Oxycodone/Acetaminophen 1 tab 03/08/19 02:43 03/13/19 09:38 Percocet 5/325 PO 1 tab Q4H PRN Administration Pain, Moderate (4-6) Sodium Chloride 10 ml 03/06/19 10:00 03/13/19 09:38 Sodium Chloride Flush Syringe 10 Ml IV 10 ml BID [facility]UYA Administration Sodium Chloride 10 ml 03/06/19 01:58 Sodium Chloride Flush Syringe 10 Ml IV PRN PRN LINE FLUSH
--- NOTE | 2019-03-13 11:04 | Progress Note ---
Assessment and Plan Right Pleural effusion Chest pain, atypical Chronic systolic heart failure Chronic atrial fibrillation Anticoagualted with ezequiel Cooper of Nonischemic cardiomyopathy s/p ICD pt reports recent negative LHC at [facility] 3 months ago; records not available for review. EF 15-20% by echo 11/2018 Essential hypertension Type 2 diabetes mellitus Chronic obstructive pulmonary disease CKD Recommend: Continue medical therapy for nonischemic cardiomyopathy and chronic atrial fibrillation as tolerated. Subjective Date of service: 03/13/19 Principal diagnosis: ckd 3 Interval history: No cardiac complaints Objective Vital Signs Temp Pulse Pulse Pulse Resp Resp Resp 03/13/19 07:33 84 18 03/13/19 05:39 98 H 03/13/19 05:03 97.5 F L 03/13/19 05:02 85 20 03/12/19 23:42 18 03/12/19 23:10 98.3 F 03/12/19 23:07 88 20 03/12/19 21:26 88 20 03/12/19 21:18 78 20 03/12/19 20:20 68 18 03/12/19 12:12 98.2 F 66 18 BP Pulse Ox 03/13/19 07:33 99 03/13/19 05:39 03/13/19 05:03 03/13/19 05:02 111/85 93 03/12/19 23:42 03/12/19 23:10 03/12/19 23:07 114/82 97 03/12/19 21:26 03/12/19 21:18 98 03/12/19 20:20 105/72 97 03/12/19 12:12 104/75 99 - Physical Examination General: No Apparent Distress HEENT: Positive: PERRL Neck: Positive: trachea midline Cardiac: Positive: Reg Rate and Rhythm Lungs: Positive: Decreased Breath Sounds Neuro: Positive: Grossly Intact Abdomen: Positive: Unremarkable Extremities: Absent: edema - Labs and Meds Coagulation 03/13/19 Range/Units 05:17 PT 17.9 H (12.2-14.9) Sec. INR 1.52 H (0.87-1.13) Comprehensive Metabolic Panel 03/13/19 Range/Units 05:17 Sodium 134 L (137-145) mmol/L Potassium 4.1 (3.6-5.0) mmol/L Chloride 97.6 L (98-107) mmol/L Carbon Dioxide 28 (22-30) mmol/L BUN 30 H (9-20) mg/dL Creatinine 1.7 H (0.8-1.5) mg/dL Glucose 93 (75-100) mg/dL Calcium 8.7 (8.4-10.2) mg/dL
--- NOTE | 2019-03-13 14:23 | Progress Note ---
Assessment and Plan - Patient Problems (1) Acute kidney injury superimposed on chronic kidney disease Current Visit: Yes Status: Acute Plan to address problem: Acute kidney injury superimposed on chronic kidney disease creatinine is improved but apparent baseline Obtain repeats chest x-ray Hold off diuresis for now Low threshold to start diuresis (2) Pleural effusion Current Visit: Yes Status: Acute Plan to address problem: Pleural effusion status post catheter placement now removed per Patient Repeat chest x-ray (3) Hyponatremia Current Visit: Yes Status: Acute Plan to address problem: Hyponatremia mild fluid restriction given history of congestive heart failure (4) Anemia Current Visit: Yes Status: Acute Plan to address problem: Moderate anemia hemoglobin 11.7 g per DL etiology secondary to chronic inflammation Monitor CBC Subjective Principal diagnosis: ckd 3 Interval history: 53-year-old gentleman with medical history of atrial fibrillation, chronic kidney disease, COPD, congestive heart failure admitted with worsening renal function nephrology following for same Patient seen today doing much better Does not have any lower extremity edema Remains on supplemental oxygen does have exertional dyspnea Objective - Vital Signs Vital signs: Vital Signs - 12hr 03/13/19 03/13/19 03/13/19 05:02 05:03 05:39 Temperature 97.5 F L Pulse Rate 85 98 H Pulse Rate [ Anterior Bilateral Throughout] Respiratory 20 Rate Respiratory Rate [Anterior Bilateral Throughout] Blood Pressure 111/85 O2 Sat by Pulse 93 Oximetry 03/13/19 03/13/19 03/13/19 07:33 08:33 10:00 Temperature 97.8 F Pulse Rate 60 60 Pulse Rate [ 84 Anterior Bilateral Throughout] Respiratory 20 Rate Respiratory 18 Rate [Anterior Bilateral Throughout] Blood Pressure 113/87 O2 Sat by Pulse 99 95 Oximetry - General Appearance General appearance: well-developed, well-nourished EENT: ATNC, PERRL Neck: no JVD Respiratory: Present: Clear to Ascultation Cardiology: regular, S1S2 Gastrointestinal: normal, normoactive bowel sounds Integumentary: no rash Neurologic: alert and oriented x3, CN 3-12 intact Psychiatric: mood/affect appropriate, paranoid ideation - Lab 03/09/19 07:25 03/13/19 05:17 Most recent lab results Calcium 8.7 mg/dL (8.4-10.2) 03/13/19 05:17 Phosphorus 3.60 mg/dL (2.5-4.5) 03/10/19 06:07 Magnesium 2.00 mg/dL (1.7-2.3) 03/11/19 05:14 33.0 mg/dL (0.1-20.0) H 03/06/19 16:10 91 mmol/L 03/06/19 16:10 5 mg/dL (5-11.8) 03/06/19 16:10 - Imaging Chest x-ray: image reviewed Medications & Allergies - Medications Allergies/Adverse Reactions: Allergies Penicillins Allergy (Verified 03/05/19 22:41) Itching strawberry Allergy (Verified 03/05/19 22:41) Hives Home Medications: Home Medications Medication Instructions Recorded Confirmed Last Taken Type Apixaban [Eliquis] 1 tab PO BID 03/05/19 03/05/19 Unknown History Clindamycin [Clindamycin CAP] 150 mg PO TID 03/05/19 03/05/19 Unknown History Lisinopril [Zestril TAB] 1 tab PO DAILY 03/05/19 03/05/19 Unknown History Torsemide [Demadex] 2 tab PO BID 03/05/19 03/05/19 Unknown History hydrALAZINE [Apresoline TAB] 1 tab PO Q8HR 03/05/19 03/05/19 Unknown History Active Medications: Generic Name Dose Route Start Last Admin Trade Name Freq PRN Reason Stop Dose Admin Acetaminophen 650 mg 03/06/19 01:58 Tylenol PO Q4H PRN Pain MILD(1-3)/Fever >100.5/TRUJILLO Albuterol 2.5 mg 03/06/19 01:58 03/13/19 07:33 Proventil IH 2.5 mg Q3HRT PRN Administration Shortness Of Breath Apixaban 5 mg 03/11/19 22:00 03/13/19 09:38 Eliquis PO 5 mg Q12HR SOUMYA Administration Protocol Aspirin 81 mg 03/07/19 10:00 03/13/19 09:38 Baby Aspirin PO 81 mg QDAY SOUMYA Administration Atorvastatin Calcium 40 mg 03/06/19 22:00 03/12/19 22:12 Lipitor PO 40 mg QHS SOUMYA Administration Budesonide 0.5 mg 03/06/19 08:00 03/13/19 07:33 Pulmicort IH 0.5 mg Q12HRT SOUMYA Administration Carvedilol 6.25 mg 03/12/19 22:00 03/13/19 09:38 Coreg PO 6.25 mg BID [facility] Administration Dextrose 50 ml 03/06/19 02:00 D50w (25gm) Syringe IV PRN PRN Hypoglycemia Docusate Sodium 100 mg 03/06/19 10:00 03/13/19 09:38 Colace PO 100 mg BID [facility] Administration Guaifenesin 600 mg 03/06/19 10:00 03/13/19 09:38 Mucinex Er PO 600 mg BID [facility] Administration Hydralazine HCl 100 mg 03/06/19 06:00 03/13/19 06:14 Apresoline PO Not Given Q8HR [facility] Insulin Human Lispro 0 unit 03/06/19 07:30 03/13/19 11:30 Humalog SUB-Q Not Given [facility] Protocol Lorazepam 2 mg 03/09/19 17:06 Ativan IV Q2H PRN Seizures Metoclopramide HCl 10 mg 03/08/19 02:23 Reglan IV Q6H PRN Nausea And Vomiting Nitroglycerin 0.4 mg 03/06/19 02:01 Nitrostat SL Q5M PRN Chest Pain Ondansetron HCl 4 mg 03/06/19 01:58 Zofran IV Q8H PRN Nausea And Vomiting Oxycodone/Acetaminophen 1 tab 03/08/19 02:43 03/13/19 09:38 Percocet 5/325 PO 1 tab Q4H PRN Administration Pain, Moderate (4-6) Sodium Chloride 10 ml 03/06/19 10:00 03/13/19 09:38 Sodium Chloride Flush Syringe 10 Ml IV 10 ml BID SOUMYA Administration Sodium Chloride 10 ml 03/06/19 01:58 Sodium Chloride Flush Syringe 10 Ml IV PRN PRN LINE FLUSH
[2019-03-13] MEDS ORDERED: MYLICON PO PRN (17:03)
--- NOTE | 2019-03-13 17:05 | Progress Note ---
Assessment and Plan Imp: 1. Pleural effusion on R of ? etiology 2. Chronic nicotine dependence, cigarettes 3. NICMP 4. Chronic systolic CHF 5. ESTEVAN Rec: 1. Cont. Levaquin x 5-7 days 2. Doubt PE on chronic Eliquis; V/Q results not helpful 3. Diagnostic and therapeutic thoracentesis done; f/u on final PFA, but suspect effusion due to CHF; consider adding low-dose diuretics as outpatient if continued re-accumulation 4. Needs f/u as outpatient to review pleural fluid results and repeat CXR to check for re-accumulation 5. Added Simethicone for gas/bloating Plan of care reviewed w/ patient, he understands/agrees Subjective Date of service: 03/13/19 Principal diagnosis: ckd 3 Interval history: No events. SOB and chest pain are basically resolved. Cough better. On RA. C/o gas/bloating. Active Medications Acetaminophen (Tylenol) 650 mg PO Q4H PRN PRN Reason: Pain MILD(1-3)/Fever >100.5/TRUJILLO Albuterol (Proventil) 2.5 mg IH Q3HRT PRN PRN Reason: Shortness Of Breath Last Admin: 03/13/19 07:33 Dose: 2.5 mg Documented by: Apixaban (Eliquis) 5 mg PO Q12HR [facility]; Protocol Last Admin: 03/13/19 09:38 Dose: 5 mg Documented by: Aspirin (Baby Aspirin) 81 mg PO QDAY [facility] Last Admin: 03/13/19 09:38 Dose: 81 mg Documented by: Atorvastatin Calcium (Lipitor) 40 mg PO QHS [facility] Last Admin: 03/12/19 22:12 Dose: 40 mg Documented by: Budesonide (Pulmicort) 0.5 mg IH Q12HRT [facility] Last Admin: 03/13/19 07:33 Dose: 0.5 mg Documented by: Carvedilol (Coreg) 6.25 mg PO BID [facility] Last Admin: 03/13/19 09:38 Dose: 6.25 mg Documented by: Dextrose (D50w (25gm) Syringe) 50 ml IV PRN PRN PRN Reason: Hypoglycemia Docusate Sodium (Colace) 100 mg PO BID [facility] Last Admin: 03/13/19 09:38 Dose: 100 mg Documented by: Guaifenesin (Mucinex Er) 600 mg PO BID [facility] Last Admin: 03/13/19 09:38 Dose: 600 mg Documented by: Hydralazine HCl (Apresoline) 100 mg PO Q8HR [facility] Last Admin: 03/13/19 15:08 Dose: Not Given Documented by: Insulin Human Lispro (Humalog) 0 unit SUB-Q ACHS [facility]; Protocol Last Admin: 03/13/19 11:30 Dose: Not Given Documented by: Lorazepam (Ativan) 2 mg IV Q2H PRN PRN Reason: Seizures Metoclopramide HCl (Reglan) 10 mg IV Q6H PRN PRN Reason: Nausea And Vomiting Nitroglycerin (Nitrostat) 0.4 mg SL Q5M PRN PRN Reason: Chest Pain Ondansetron HCl (Zofran) 4 mg IV Q8H PRN PRN Reason: Nausea And Vomiting Oxycodone/Acetaminophen (Percocet 5/325) 1 tab PO Q4H PRN PRN Reason: Pain, Moderate (4-6) Last Admin: 03/13/19 13:30 Dose: 1 tab Documented by: Simethicone (Mylicon) 80 mg PO ONCE ONE Stop: 03/13/19 17:04 Simethicone (Mylicon) 80 mg PO Q6H PRN PRN Reason: Gas pain Sodium Chloride (Sodium Chloride Flush Syringe 10 Ml) 10 ml IV BID [facility] Last Admin: 03/13/19 09:38 Dose: 10 ml Documented by: Sodium Chloride (Sodium Chloride Flush Syringe 10 Ml) 10 ml IV PRN PRN PRN Reason: LINE FLUSH Objective Vital Signs - 12hr 03/13/19 03/13/19 03/13/19 05:39 07:33 07:43 Temperature Pulse Rate 98 H Pulse Rate [ 84 82 Anterior Bilateral Throughout] Respiratory Rate Respiratory 18 20 Rate [Anterior Bilateral Throughout] Blood Pressure O2 Sat by Pulse 99 Oximetry 03/13/19 03/13/19 08:33 10:00 Temperature 97.8 F Pulse Rate 60 60 Pulse Rate [ Anterior Bilateral Throughout] Respiratory 20 Rate Respiratory Rate [Anterior Bilateral Throughout] Blood Pressure 113/87 O2 Sat by Pulse 95 Oximetry Constitutional: no acute distress, alert Eyes: non-icteric ENT: oropharynx moist Neck: supple Effort: normal Ascultation: Right: diminished breath sounds (mildly decreased at R base), Bilateral: clear Cardiovascular: regular rate and rhythm (no mrg) Gastrointestinal: normoactive bowel sounds, soft, non-tender, non-distended, other (benign exam) Integumentary: normal Extremities: no cyanosis Neurologic: normal mental status, non-focal exam, pupils equal and round, CN II- XII normal Psychiatric: mood appropriate, affect normal CBC and BMP: 03/09/19 07:25 03/13/19 05:17 ABG, PT/INR, D-dimer: PT/INR, D-dimer PT 17.9 Sec. (12.2-14.9) H 03/13/19 05:17 INR 1.52 (0.87-1.13) H 03/13/19 05:17 1869.29 ng/mlDDU (0-234) H 03/05/19 22:42 Abnormal lab findings: Abnormal Labs 03/05/19 03/05/19 03/05/19 22:42 22:42 22:42 Hgb 11.7 L Hct 35.1 L RDW 20.1 H [place] % (Auto) 9.3 H Baso % (Auto) 2.6 H Lymph # Baso # 0.2 H Seg Neutrophils % PT 15.9 H INR 1.30 H D-Dimer 1869.29 H Sodium Potassium 5.6 H Chloride BUN 34 H Creatinine 1.8 H Glucose 102 H POC Glucose Uric Acid HDL Cholesterol Free T4 Urine Creatinine 03/06/19 03/06/19 03/06/19 02:19 02:19 05:56 Hgb Hct RDW 20.1 H [place] % (Auto) 10.1 H Baso % (Auto) Lymph # 1.1 L Baso # Seg Neutrophils % PT INR D-Dimer Sodium Potassium 3.5 L D Chloride BUN 36 H Creatinine 1.9 H Glucose POC Glucose Uric Acid HDL Cholesterol 26 L Free T4 Urine Creatinine 03/06/19 03/06/19 03/06/19 09:55 11:29 16:10 Hgb Hct RDW [place] % (Auto) Baso % (Auto) Lymph # Baso # Seg Neutrophils % PT INR D-Dimer Sodium Potassium Chloride BUN Creatinine Glucose POC Glucose 107 H Uric Acid 15.2 H HDL Cholesterol Free T4 Urine Creatinine 33.0 H 03/06/19 03/07/19 03/07/19 21:27 03:11 03:11 Hgb Hct RDW 19.9 H [place] % (Auto) 10.2 H Baso % (Auto) Lymph # 0.9 L Baso # Seg Neutrophils % 71.3 H PT INR D-Dimer Sodium Potassium Chloride BUN 30 H Creatinine 1.8 H Glucose 103 H POC Glucose 108 H Uric Acid HDL Cholesterol Free T4 Urine Creatinine 03/07/19 03/07/19 03/07/19 11:18 17:08 20:41 Hgb Hct RDW [place] % (Auto) Baso % (Auto) Lymph # Baso # Seg Neutrophils % PT INR D-Dimer Sodium Potassium Chloride BUN Creatinine Glucose POC Glucose 118 H 117 H 107 H Uric Acid HDL Cholesterol Free T4 Urine Creatinine 03/08/19 03/09/19 03/09/19 04:37 07:25 07:25 Hgb 11.7 L Hct RDW 19.9 H [place] % (Auto) 12.9 H Baso % (Auto) 1.9 H Lymph # 1.1 L Baso # Seg Neutrophils % PT 17.6 H INR 1.48 H D-Dimer Sodium 136 L Potassium Chloride 97.4 L BUN 27 H Creatinine 1.7 H Glucose POC Glucose Uric Acid HDL Cholesterol Free T4 Urine Creatinine 03/09/19 03/09/19 03/09/19 07:25 11:48 16:20 Hgb Hct RDW [place] % (Auto) Baso % (Auto) Lymph # Baso # Seg Neutrophils % PT INR D-Dimer Sodium Potassium Chloride 95.4 L BUN 28 H Creatinine 1.8 H Glucose POC Glucose 124 H 107 H Uric Acid HDL Cholesterol Free T4 Urine Creatinine 03/10/19 03/10/19 03/10/19 06:07 06:07 20:52 Hgb Hct RDW [place] % (Auto) Baso % (Auto) Lymph # Baso # Seg Neutrophils % PT 16.9 H INR 1.41 H D-Dimer Sodium Potassium Chloride 97.0 L BUN 34 H Creatinine 2.2 H Glucose 119 H POC Glucose 107 H Uric Acid HDL Cholesterol Free T4 Urine Creatinine 03/11/19 03/11/19 03/11/19 05:14 05:14 10:17 Hgb Hct RDW [place] % (Auto) Baso % (Auto) Lymph # Baso # Seg Neutrophils % PT 15.7 H INR 1.28 H D-Dimer Sodium 133 L Potassium Chloride 95.0 L BUN 35 H Creatinine 2.0 H Glucose POC Glucose Uric Acid HDL Cholesterol Free T4 1.50 H Urine Creatinine 03/11/19 03/11/19 03/12/19 11:45 15:51 05:32 Hgb Hct RDW [place] % (Auto) Baso % (Auto) Lymph # Baso # Seg Neutrophils % PT 16.6 H INR 1.38 H D-Dimer Sodium Potassium Chloride BUN Creatinine Glucose POC Glucose 121 H 127 H Uric Acid HDL Cholesterol Free T4 Urine Creatinine 03/12/19 03/12/19 03/12/19 05:32 17:09 21:43 Hgb Hct RDW [place] % (Auto) Baso % (Auto) Lymph # Baso # Seg Neutrophils % PT INR D-Dimer Sodium 135 L Potassium Chloride 94.8 L BUN 35 H Creatinine 2.0 H Glucose 102 H POC Glucose 110 H 118 H Uric Acid HDL Cholesterol Free T4 Urine Creatinine 03/13/19 03/13/19 03/13/19 05:17 05:17 07:25 Hgb Hct RDW [place] % (Auto) Baso % (Auto) Lymph # Baso # Seg Neutrophils % PT 17.9 H INR 1.52 H D-Dimer Sodium 134 L Potassium Chloride 97.6 L BUN 30 H Creatinine 1.7 H Glucose POC Glucose 118 H Uric Acid HDL Cholesterol Free T4 Urine Creatinine 03/13/19 11:38 Hgb Hct RDW [place] % (Auto) Baso % (Auto) Lymph # Baso # Seg Neutrophils % PT INR D-Dimer Sodium Potassium Chloride BUN Creatinine Glucose POC Glucose 109 H Uric Acid HDL Cholesterol Free T4 Urine Creatinine Chest x-ray: report reviewed, image reviewed
[2019-03-13] MEDS ORDERED: MYLICON PO ONE (18:00)
[2019-03-14] MEDS: HumaLOG SUB-Q SCH ×2 (01:13→07:30)
[2019-03-14] MEDS: PERCOCET 5/325 PO PRN ×3 (03:08→13:16)
[2019-03-14] MEDS: APRESOLINE PO SCH (05:24)
[2019-03-14 06:21] LABS: INR 1.46 (0.87-1.13)
[2019-03-14] MEDS: PROVENTIL IH PRN (07:45)
[2019-03-14] MEDS: PULMICORT IH SCH (07:45)
[2019-03-14 09:40] VITALS: BP 101/76
[2019-03-14] MEDS: COLACE PO SCH (09:40)
[2019-03-14] MEDS: MUCINEX ER PO SCH (09:40)
[2019-03-14] MEDS: COREG PO SCH (09:40)
[2019-03-14] MEDS: ELIQUIS PO SCH (09:40)
[2019-03-14] MEDS: BABY ASPIRIN PO SCH (09:41)
[2019-03-14] MEDS: SODIUM CHLORIDE FLUSH SYRINGE 10 ML IV SCH (09:42)
--- NOTE | 2019-03-14 10:10 | Discharge Summary ---
Providers - Providers Date of Admission: 03/06/19 01:58 Date of discharge: 03/14/19 Attending physician: SHRADDHA HERBERT 03/06/19 02:01 Consult to Physician [CONS] Routine Comment: Consulting Provider: RASHEEDA LAZARO Physician Instructions: Reason For Exam: elevated d-dimer, SOB, CP VQ scan intermed prob 03/06/19 02:26 Consult to Physician [CONS] Routine Comment: Consulting Provider: NALLELY CHING Physician Instructions: Reason For Exam: [place] vs?? ckd 03/06/19 02:33 Consult to Physician [CONS] Routine Comment: Consulting Provider: POLLY ESPINOZA Physician Instructions: Reason For Exam: hx of HF, c/o CP [facility] Reason for admission: cp Condition: Fair Hospital course: 52-year-old -Romanian male who recently moved from [place] to [place] initially had been going to [facility] and has now moved to [facility] presents with left precordial chest pain at rest. This was associated with shortness of breath but no diaphoresis. The patient was admitted with diagnosis of acute hypoxic respiratory failure secondary to acute on chronic combined systolic and diastolic heart failure and chronic atrial fibrillation. The patient was seen by pulmonary and cardiology consultation. Patient had a V/Q s can that revealed intermediate probability for acute PE. However, pulmonary felt that this was not of significance and that PE was unlikely. Patient was already on Eliquis prior to admission. Patient did have CT chest findings that revealed a large right pleural effusion and subsequent atelectasis. Patient underwent thoracentesis and results should be followed up as an outpatient. Cardiology felt that the patient is chest pain was atypical. Cardiology only recommended medical therapy for nonischemic cardiomyopathy and chronic atrial fibrillation as tolerated. Pulmonary recommended treatment of antibiotics Levaquin for 7 days. Patient will need f/u as outpatient to review pleural fluid results and repeat CXR to check for re-accumulation. Dedicated discharge time 32 minutes. Disposition: - TO HOME OR SELFCARE Time spent for discharge: 32 - Discharge Diagnoses (1) Acute kidney injury superimposed on chronic kidney disease Status: Acute (2) Anemia Status: Acute (3) Chest pain Status: Acute (4) Hyperkalemia Status: Acute (5) Hyponatremia Status: Acute (6) Pleural effusion Status: Acute (7) Pneumonia Status: Acute (8) Renal insufficiency Status: Acute Core Measure Documentation - Palliative Care Palliative Care/ Comfort Measures: Not Applicable - Core Measures Any of the following diagnoses?: heart failure - Heart Failure Discharge Requirements INES/ARB for LVSD if EF <40%: No Reason for no INES/ARB: Renal impairment Beta nathaniel at discharge: Yes Exam - Constitutional Vitals: Temp Pulse Resp BP Pulse Ox 97.7 F 81 18 101/76 98 03/14/19 04:59 03/14/19 09:40 03/14/19 07:45 03/14/19 09:40 03/14/19 07:45 General appearance: Present: no acute distress, well-nourished - EENT Eyes: Present: PERRL ENT: hearing intact, clear oral mucosa - Neck Neck: Present: supple, normal ROM - Respiratory Respiratory effort: normal Respiratory: bilateral: CTA - Cardiovascular Heart Sounds: Present: S1 & S2. Absent: rub, click - Extremities Extremities: pulses symmetrical, No edema Peripheral Pulses: within normal limits - Abdominal General gastrointestinal: Present: soft, non-tender, non-distended, normal bowel sounds Male genitourinary: Present: normal - Integumentary Integumentary: Present: clear, warm, dry - Musculoskeletal Musculoskeletal: gait normal, strength equal bilaterally - Psychiatric Psychiatric: appropriate mood/affect, intact judgment & insight - Neurologic Neurologic: CNII-XII intact, moves all extremities Plan Activity: advance as tolerated Weight Bearing Status: Weight Bear as Tolerated Diet: low fat, low cholesterol, low salt Follow up with: ZAIDA MISHRACLIFTON MD JOSE [Primary Care Provider] - 3-5 Days Prescriptions: hydrALAZINE [Apresoline TAB] 1 tab PO Q8HR #90 tab Aspirin [Aspirin BABY CHEW TAB] 81 mg PO QDAY #30 tab.chew Carvedilol [Coreg] 6.25 mg PO BID #60 tablet Torsemide [Demadex] 2 tab PO BID #60 tablet Apixaban [Eliquis] 1 tab PO BID #60 tablet AtorvaSTATin [Lipitor] 40 mg PO QHS #30 tablet guaiFENesin ER [Mucinex ER] 600 mg PO BID #60 tablet oxyCODONE /ACETAMINOPHEN [Percocet 5/325 mg] 1 tab PO Q4H PRN #10 tablet PRN Reason: Pain, Moderate (4-6) Lisinopril [Zestril TAB] 1 tab PO DAILY #30 tablet
--- NOTE | 2019-03-14 10:45 | XRay Report ---
CHEST 2 VIEWS 0955 INDICATION / CLINICAL INFORMATION: pleural effusion. COMPARISON: 03/11/2019 FINDINGS: SUPPORT DEVICES: Stable, satisfactory device positioning. HEART / MEDIASTINUM: Cardiomegaly LUNGS / PLEURA: Congestive changes have worsened. Mild interstitial pulmonary edema is seen. Focal in filtrate in the right base continues small right pleural effusion again seen. Left lung field is niko r of focal infiltrates. No pneumothorax. ADDITIONAL FINDINGS: No significant additional findings. IMPRESSION: Worsening congestive failure Signer Name: Wade Cabrera MD Signed: 03/14/2019 10:41 AM Workstation Name: [id number]
--- NOTE | 2019-03-14 12:12 | Progress Note ---
Assessment and Plan - Patient Problems (1) Acute kidney injury superimposed on chronic kidney disease Current Visit: Yes Status: Acute Plan to address problem: Acute kidney injury superimposed on chronic kidney disease creatinine is improved but apparent baseline I reviewed chest x-ray with worsening congestion Resume home diuretics , Torsemide 40mg bid Discussed with Dr. Cabrera. (2) Pleural effusion Current Visit: Yes Status: Acute Plan to address problem: Pleural effusion status post catheter placement now removed per Patient s/p thoracentesis with 2.4L removed. resume diuretics. (3) Hyponatremia Current Visit: Yes Status: Acute Plan to address problem: Hyponatremia mild fluid restriction given history of congestive heart failure (4) Anemia Current Visit: Yes Status: Acute Plan to address problem: Moderate anemia hemoglobin 11.7 g per DL etiology secondary to chronic inflammation Monitor CBC Subjective Principal diagnosis: ckd 3 Interval history: 53-year-old gentleman with medical history of atrial fibrillation, chronic kidney disease, COPD, congestive heart failure admitted with worsening renal function nephrology following for same Patient seen today Plan for discharge today. Does not have any lower extremity edema Remains on supplemental oxygen does have exertional dyspnea Objective - Vital Signs Vital signs: Vital Signs - 12hr 03/14/19 03/14/19 03/14/19 00:16 00:17 04:59 Temperature 97.8 F 97.7 F Pulse Rate 51 L 51 L Pulse Rate [ Anterior Bilateral Throughout] Respiratory 18 20 Rate Respiratory Rate [Anterior Bilateral Throughout] Blood Pressure 103/67 Blood Pressure 98/68 [Right] O2 Sat by Pulse 93 99 Oximetry 03/14/19 03/14/19 03/14/19 07:45 08:03 09:40 Temperature 97.3 F L Pulse Rate 76 81 Pulse Rate [ 72 Anterior Bilateral Throughout] Respiratory 20 Rate Respiratory 18 Rate [Anterior Bilateral Throughout] Blood Pressure 106/72 101/76 Blood Pressure [Right] O2 Sat by Pulse 98 94 Oximetry - General Appearance General appearance: well-developed, well-nourished EENT: ATNC, PERRL, mucous membranes moist Neck: no JVD Respiratory: Present: Decreased Breath Sounds Cardiology: regular, S1S2 Gastrointestinal: normal, normoactive bowel sounds Integumentary: no rash Neurologic: alert and oriented x3 Psychiatric: mood/affect appropriate - Lab 03/09/19 07:25 03/13/19 05:17 Most recent lab results Calcium 8.7 mg/dL (8.4-10.2) 03/13/19 05:17 Phosphorus 3.60 mg/dL (2.5-4.5) 03/10/19 06:07 Magnesium 2.00 mg/dL (1.7-2.3) 03/11/19 05:14 33.0 mg/dL (0.1-20.0) H 03/06/19 16:10 91 mmol/L 03/06/19 16:10 5 mg/dL (5-11.8) 03/06/19 16:10 - Imaging Chest x-ray: image reviewed (I reviewed CXR which showed increasing bilateral patchy opacities consistent with congestion.) Medications & Allergies - Medications Allergies/Adverse Reactions: Allergies Penicillins Allergy (Verified 03/05/19 22:41) Itching strawberry Allergy (Verified 03/05/19 22:41) Hives Home Medications: Home Medications Medication Instructions Recorded Confirmed Last Taken Type Apixaban [Eliquis] 1 tab PO BID #60 tablet 03/14/19 Unknown Rx Apixaban [Eliquis] 5 mg PO Q12HR tablet 03/14/19 Unknown Rx Aspirin [Aspirin BABY CHEW TAB] 81 mg PO QDAY #30 tab.chew 03/14/19 Unknown Rx AtorvaSTATin [Lipitor] 40 mg PO QHS #30 tablet 03/14/19 Unknown Rx Carvedilol [Coreg] 6.25 mg PO BID #60 tablet 03/14/19 Unknown Rx Lisinopril [Zestril TAB] 1 tab PO DAILY #30 tablet 03/14/19 Unknown Rx Torsemide [Demadex] 2 tab PO BID #60 tablet 03/14/19 Unknown Rx guaiFENesin ER [Mucinex ER] 600 mg PO BID #60 tablet 03/14/19 Unknown Rx hydrALAZINE [Apresoline TAB] 1 tab PO Q8HR #90 tab 03/14/19 Unknown Rx levoFLOXacin [Levaquin TAB] 500 mg PO QDAY #7 tablet 03/14/19 Unknown Rx oxyCODONE /ACETAMINOPHEN [Percocet 1 tab PO Q4H PRN #10 tablet 03/14/19 Unknown Rx 5/325 mg] Active Medications: Generic Name Dose Route Start Last Admin Trade Name Freq PRN Reason Stop Dose Admin Acetaminophen 650 mg 03/06/19 01:58 Tylenol PO Q4H PRN Pain MILD(1-3)/Fever >100.5/TRUJILLO Albuterol 2.5 mg 03/06/19 01:58 03/14/19 07:45 Proventil IH 2.5 mg Q3HRT PRN Administration Shortness Of Breath Apixaban 5 mg 03/11/19 22:00 03/14/19 09:40 Eliquis PO 5 mg Q12HR SOUMYA Administration Protocol Aspirin 81 mg 03/07/19 10:00 03/14/19 09:41 Baby Aspirin PO 81 mg QDAY SOUMYA Administration Atorvastatin Calcium 40 mg 03/06/19 22:00 03/13/19 22:21 Lipitor PO 40 mg QHS SOUMYA Administration Budesonide 0.5 mg 03/06/19 08:00 03/14/19 07:45 Pulmicort IH 0.5 mg Q12HRT SOUMYA Administration Carvedilol 6.25 mg 03/12/19 22:00 03/14/19 09:40 Coreg PO 6.25 mg BID [facility] Administration Dextrose 50 ml 03/06/19 02:00 D50w (25gm) Syringe IV PRN PRN Hypoglycemia Docusate Sodium 100 mg 03/06/19 10:00 03/14/19 09:40 Colace PO 100 mg BID [facility] Administration Guaifenesin 600 mg 03/06/19 10:00 03/14/19 09:40 Mucinex Er PO 600 mg BID SOUMYA Administration Hydralazine HCl 100 mg 03/06/19 06:00 03/14/19 05:24 Apresoline PO Not Given Q8HR [facility] Insulin Human Lispro 0 unit 03/06/19 07:30 03/14/19 07:30 Humalog SUB-Q Not Given ACHS [facility] Protocol Lorazepam 2 mg 03/09/19 17:06 Ativan IV Q2H PRN Seizures Metoclopramide HCl 10 mg 03/08/19 02:23 Reglan IV Q6H PRN Nausea And Vomiting Nitroglycerin 0.4 mg 03/06/19 02:01 Nitrostat SL Q5M PRN Chest Pain Ondansetron HCl 4 mg 03/06/19 01:58 Zofran IV Q8H PRN Nausea And Vomiting Oxycodone/Acetaminophen 1 tab 03/08/19 02:43 03/14/19 08:17 Percocet 5/325 PO 1 tab Q4H PRN Administration Pain, Moderate (4-6) Simethicone 80 mg 03/13/19 17:03 03/13/19 22:24 Mylicon PO 80 mg Q6H PRN Administration Gas pain Sodium Chloride 10 ml 03/06/19 10:00 03/14/19 09:42 Sodium Chloride Flush Syringe 10 Ml IV 10 ml BID SOUMYA Administration Sodium Chloride 10 ml 03/06/19 01:58 Sodium Chloride Flush Syringe 10 Ml IV PRN PRN LINE FLUSH
[2019-03-14 15:03] LABS: Calcium 9.1 mg/dL (8.4-10.2)
[2019-03-17 09:46] LABS: LDH,Body Fluid 99; Total Protein,Body Fluid 4.3 (15.0-45.0); Triglycerides,Body Fluid 104; pH, Body Fluid 7.7
== END 2019-03-14 14:00 | disposition home or self-care (01) | DRG 682 ==
LOC: ED 22:12 → 4A 03-06 01:58
PROVIDERS: ADMIT Internal Medicine; ATTEND Hospitalist
PROC: 0W993ZZ Drainage of Right Pleural Cavity, Percutaneous Approach (ICD-10-PCS; principal; 2019-03-11)
DX: N17.0 Acute kidney failure with tubular necrosis (principal); I50.43 Acute on chronic combined systolic (congestive) and diastolic (congestive) heart failure; J18.9 Pneumonia, unspecified organism; J96.01 Acute respiratory failure with hypoxia; E11.22 Type 2 diabetes mellitus with diabetic chronic kidney disease; I13.0 Hypertensive heart and chronic kidney disease with heart failure and stage 1 through stage 4 chronic kidney disease, or unspecified chronic kidney disease; N18.3 Chronic kidney disease, stage 3 (moderate); E87.1 Hypo-osmolality and hyponatremia; J91.8 Pleural effusion in other conditions classified elsewhere; J98.11 Atelectasis; I48.2 Chronic atrial fibrillation; E11.40 Type 2 diabetes mellitus with diabetic neuropathy, unspecified; I42.0 Dilated cardiomyopathy; E87.5 Hyperkalemia; D64.9 Anemia, unspecified; F17.210 Nicotine dependence, cigarettes, uncomplicated; I42.9 Cardiomyopathy, unspecified; J44.9 Chronic obstructive pulmonary disease, unspecified; I25.2 Old myocardial infarction; Z88.0 Allergy status to penicillin; Z91.018 Allergy to other foods; Z79.01 Long term (current) use of anticoagulants; Z95.810 Presence of automatic (implantable) cardiac defibrillator; Z71.6 Tobacco abuse counseling; Z79.4 Long term (current) use of insulin
CPT/HCPCS: 32555; 36415; 70450; 71045; 71046; 71250; 76770; 78582; 80048; 80061; 82040; 82550; 82553; 82570; 82947; 82962; 83036; 83605; 83615; 83735; 83880; 83930; 84100; 84156; 84160; 84300; 84439; 84443; 84478; 84484; 84550; 85025; 85379; 85610; 85730; 87040; 87116; 88112; 88305; 88341; 88342; 89051; 93005; 93010; 93970; 94640; 94760; 96365; 96375; 99406; G0378; A9270-GY; A9540; A9558; J0610; J1650; J1940; J1956; J2270; J2405; J3010; J7030

== ENCOUNTER 2019-03-18 21:08 | Observation (INO) | payer MEDICAID ==
[2019-03-18] MEDS ORDERED: ZOFRAN IV ONE (21:27)
[2019-03-18] MEDS ORDERED: SUBLIMAZE IV ONE (21:27)
[2019-03-18] MEDS ORDERED: CARDIZEM IV ONE (21:27)
[2019-03-18] MEDS ORDERED: ZOFRAN ONE (21:31)
[2019-03-18] MEDS ORDERED: SUBLIMAZE ONE (21:32)
--- NOTE | 2019-03-18 21:32 | Emergency Department Report ---
HPI - General Chief Complaint: Chest Pain Time Seen by Provider: 03/18/19 21:20 - HPI HPI: Room 19 The pt is a 53 y/o M p/w a cc of CP. The pt states he's been having L sided CP x 1.5 hours. The pain is sharp and intermittent in nature. The pt states there is associated SOB, diaphoresis and nausea without Vomiting. Pt denies coug or fever. Pt gives pain a score of 9/10. The patient states her las t cardiac cath occurred over 5 years ago. 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 ED Past Medical Hx - Past Medical History Previous Medical History?: Yes Hx Hypertension: Yes Hx CVA: Yes (left sided weakness) Hx Heart Attack/AMI: Yes Hx Congestive Heart Failure: Yes Hx Diabetes: Yes Hx COPD: Yes (2L [place] Home o2) Additional medical history: Neuropathy - Surgical History Past Surgical History?: Yes Hx Internal Defibrillator: Yes - Family History Family history: no significant - Social History Smoking Status: Current Every Day Smoker (09/04 ppd) Substance Use Type: None (denies illicit drug use) - Medications Home Medications: Home Medications Medication Instructions Recorded Confirmed Last Taken Type Apixaban [Eliquis] 1 tab PO BID #60 tablet 03/14/19 03/18/19 Unknown Rx Apixaban [Eliquis] 5 mg PO Q12HR tablet 03/14/19 03/18/19 Unknown Rx Aspirin [Aspirin BABY CHEW TAB] 81 mg PO QDAY #30 tab.chew 03/14/19 03/18/19 Unknown Rx AtorvaSTATin [Lipitor] 40 mg PO QHS #30 tablet 03/14/19 03/18/19 Unknown Rx Carvedilol [Coreg] 6.25 mg PO BID #60 tablet 03/14/19 03/18/19 Unknown Rx Lisinopril [Zestril TAB] 1 tab PO DAILY #30 tablet 03/14/19 03/18/19 Unknown Rx Torsemide [Demadex] 2 tab PO BID #60 tablet 03/14/19 03/18/19 Unknown Rx guaiFENesin ER [Mucinex ER] 600 mg PO BID #60 tablet 03/14/19 03/18/19 Unknown Rx hydrALAZINE [Apresoline TAB] 1 tab PO Q8HR #90 tab 03/14/19 03/18/19 Unknown Rx levoFLOXacin [Levaquin TAB] 500 mg PO QDAY #7 tablet 03/14/19 03/18/19 Unknown Rx oxyCODONE /ACETAMINOPHEN [Percocet 1 tab PO Q4H PRN #10 tablet 03/14/19 03/18/19 Unknown Rx 5/325 mg] ED Review of Systems ROS: Stated complaint: CP Other details as noted in HPI Constitutional: diaphoresis. denies: fever Eyes: denies: eye pain ENT: denies: throat pain Respiratory: shortness of breath Cardiovascular: chest pain Endocrine: no symptoms reported Gastrointestinal: nausea. denies: abdominal pain, vomiting Genitourinary: denies: dysuria Musculoskeletal: back pain Neurological: denies: headache Physical Exam - Physical Exam Vital Signs: Vital Signs 03/18/19 21:23 Temperature 99.0 F Pulse Rate 108 H Respiratory 17 Rate Blood Pressure 123/90 [Right] O2 Sat by Pulse 95 Oximetry Physical Exam: GEN: WD WN Male lying on stretcher appearing to be in moderate discomfort HEENT: EOMI NECK: Trachea midline LUNGS: No resp Distress CV: irregularly irregular c tachycardia no m/r/g ABD: S/NT/ND SKIN: No Diaphoresis NEURO: GCS 15 MS: no evidence of acute injury ED Course Vital Signs 03/18/19 21:23 Temperature 99.0 F Pulse Rate 108 H Respiratory 17 Rate Blood Pressure 123/90 [Right] O2 Sat by Pulse 95 Oximetry ED Medical Decision Making - Lab Data Result diagrams: 03/18/19 21:31 03/18/19 21:31 Laboratory Tests 03/18/19 03/18/19 21:31 21:31 WBC 9.6 RBC 4.04 Hgb 11.6 L Hct 35.8 MCV 89 MCH 29 MCHC 33 RDW 18.7 H Plt Count 169 Lymph % (Auto) 9.6 L [place] % (Auto) 14.8 H Eos % (Auto) 0.3 Baso % (Auto) 0.6 Lymph # 0.9 L [place] # 1.4 H Eos # 0.0 Baso # 0.1 Seg Neutrophils % 74.7 H Seg Neutrophils # 7.2 Sodium 138 Potassium 4.0 Chloride 100.8 Carbon Dioxide 24 Anion Gap 17 BUN 26 H Creatinine 1.4 Estimated GFR > 60 BUN/Creatinine Ratio 19 Glucose 99 Calcium 9.1 Troponin T 0.012 - EKG Data -: EKG Interpreted by Me Rate: tachycardia (124 bpm) - EKG Data When compared to previous EKG there are: no significant change Interpretation: other (a fib c RVR) - Radiology Data Radiology results: report reviewed (cxr), image reviewed (cxr) interpreted by me: cxr- right pleural effusion [facility] [address] [place] [address] XRay Report Signed Patient: MITCHEL HEATH MR#: [id number] : 1965 Acct:[id number] Age/Sex: 53 / M ADM Date: 03/18/19 Loc: ED Attending Dr: Ordering Physician: ED MD ZULMA Date of Service: 03/18/19 Procedure(s): XR chest 1V ap Accession Number(s): [id number] cc: ED MD ZULMA Fluoro Time In Minutes: CHEST 1 VIEW INDICATION / CLINICAL INFORMATION: Chest Pain. COMPARISON: 03/14/2019 FINDINGS: SUPPORT DEVICES: ICD on the left. HEART / MEDIASTINUM: Stable mild cardiomegaly with left ventricular configuration. LUNGS / PLEURA: Interstitial pulmonary edema has improved. No change in the right No pneumothorax. ADDITIONAL FINDINGS: No significant additional findings. IMPRESSION: 1. Improving interstitial pulmonary edema with stable right pleural effusion. Signer Name: Mitchel Witt MD Signed: 03/18/2019 10:43 PM Workstation Name: [id number] Transcribed By: TIMMY Dictated By: Mitchel Witt MD Electronically Authenticated By: Mitchel Witt MD Signed Date/Time: 03/18/192242 DD/ 40 TD/TT: - Differential Diagnosis A fib c rvr, acs, pericarditis, GERD Critical care attestation.: If time is entered above; I have spent that time in minutes in the direct care of this critically ill patient, excluding procedure time. ED Disposition Clinical Impression: Chest pain, Atrial fibrillation with rapid ventricular response, Pleural effus ion Disposition: OP ADMIT IP TO THIS HOSP Is pt being admited?: Yes Does the pt Need Aspirin: Yes Condition: Fair Instructions: Chest Pain (ED) Time of Disposition: 22:55 (Hospitalist paged)
[2019-03-18 21:50] LABS: Basophils # (Auto) 0.1 K/mm3 (0.0-0.1); Basophils % (Auto) 0.6 % (0.0-1.8); Eosinophils % (Auto) 0.3 % (0.0-4.3); Hematocrit 35.8 % (35.5-45.6); Hemoglobin 11.6 gm/dl (11.8-15.2); Lymphocytes # (Auto) 0.9 K/mm3 (1.2-5.4); Lymphocytes % (Auto) 9.6 % (13.4-35.0); Mean Corpuscular HGB Conc 33 % (32-34); Mean Corpuscular Hemoglobin 29 pg (28-32); Mean Corpuscular Volume 89 fl (84-94); Monocytes # (Auto) 1.4 K/mm3 (0.0-0.8); Monocytes % (Auto) 14.8 % (0.0-7.3); Platelet Count 169 K/mm3 (140-440); Red Blood Count 4.04 M/mm3 (3.65-5.03); Red Cell Distribution Width 18.7 % (13.2-15.2)
[2019-03-18 22:15] LABS: BUN/Creatinine Ratio 19; Blood Urea Nitrogen 26 mg/dL (9-20); Calcium 9.1 mg/dL (8.4-10.2); Hemolysis Index 2
--- NOTE | 2019-03-18 22:48 | XRay Report ---
CHEST 1 VIEW INDICATION / CLINICAL INFORMATION: Chest Pain. COMPARISON: 03/14/2019 FINDINGS: SUPPORT DEVICES: ICD on the left. HEART / MEDIASTINUM: Stable mild cardiomegaly with left ventricular configuration. LUNGS / PLEURA: Interstitial pulmonary edema has improved. No change in the right No pneumothorax. ADDITIONAL FINDINGS: No significant additional findings. IMPRESSION: 1. Improving interstitial pulmonary edema with stable right pleural effusion. Signer Name: Mitchel Witt MD Signed: 03/18/2019 10:43 PM Workstation Name: [id number]
[2019-03-18] MEDS ORDERED: CARDIZEM/D5W 100MG/100ML 100 MG/100 ML BAG IV SCH (23:00)
[2019-03-18] MEDS ORDERED: NITROSTAT SL PRN (23:06)
[2019-03-18] MEDS ORDERED: SODIUM CHLORIDE FLUSH SYRINGE 10 ML IV PRN ×2 (23:06→23:08)
[2019-03-18] MEDS ORDERED: TYLENOL PO PRN (23:08)
[2019-03-18] MEDS ORDERED: ZOFRAN IV PRN (23:08)
[2019-03-18] MEDS ORDERED: PROVENTIL IH PRN (23:08)
[2019-03-18] MEDS ORDERED: MORPHINE IV PRN (23:08)
[2019-03-18] MEDS ORDERED: DILAUDID ONE (23:37)
[2019-03-19 00:05] LABS: INR 1.45 (0.87-1.13)
[2019-03-19 00:06] LABS: Partial Thromboplastin Time 35.1 Sec. (24.2-36.6)
[2019-03-19] MEDS ORDERED: LASIX IV ONE (00:42)
--- NOTE | 2019-03-19 00:44 | Event Note ---
Date: 03/19/19 53-year-old man who was recently admitted to the hospital and discharged on 03/14. During that time the patient was admitted to the hospital with shortness of breath. He was found to have CHF and chronic atrial fibrillation. He is also found to have a right pleural effusion status post thoracentesis, 2.4 L was removed, cytology still pending. Fluid analysis appears to be transudate. He then presents today with left-sided chest pain or 90 minutes. He was found to have A. fib with RVR in the ER, for which he received Iv Cardizem with imp rovement of heart rate Past medical history; hypertension, CVA, history of SC, combined CHF, diabetes, COPD on home oxygen, chronic A. fib, CK D stage II, ongoing tobacco abuse CXR; Improving interstitial pulmonary edema with stable right pleural effusion. chest pain is likely due to afib, cardiology to manage A. fib with RVR and hypercoagulable state; continue Coreg for rate control, cardiology consult CHF, interstitial infiltrates improving on cxr, diuresis, continue beta nathaniel and INES inhibitor Right pleural effusion with recent thoracentesis, follow up cytology from previous admission Ongoing tobacco abuse, counseled about cessation for 11 minutes, nicotine patches when necessary ckd stage 2, avoid nephrotoxins, nephrology consult
[2019-03-19] MEDS ORDERED: DILAUDID IV ONE (00:55)
--- NOTE | 2019-03-19 02:05 | History and Physical Report ---
History of Present Illness Date of examination: 03/18/19 Date of admission: 03/18/19 23:08 Chief complaint: Chest pain History of present illness: 62-year-old -[place]aj[place] male was an ongoing smoker with a history of chronic systolic HF with EF 15-20%, she'll fibrillation, IA on anticoagulation with Eliquis, CKD, hypertension, diabetes, COPD, and tobacco abuse presents [facility] ED with complaints of nonradiating intermittent left-sided chest pain. He states that his chest pain started this afternoon. He attempted to take sublingual nitroglycerin with no improvement. His chest pain is accompanied by diaphoresis and nausea. He rates his pain 9/10 and describes it as sharp. Denies: emesis, cough, or hemoptysis Review of medical records reveals that pt was recently admitted to the hospital and discharged on 03/14. He was found to have CHF and chronic atrial fibrillation. He is also found to have a right pleural effusion status post thoracentesis, 2.4 L was removed, cytology still pending. Fluid analysis appears to be transudate. Past History Past Medical History: acute IA, COPD (2 L nasal cannula home oxygen), diabetes, heart failure, hypertension, stroke (left-sided residual weakness) Past Surgical History: Other (Internal Defibrillator) Social history: smoking (Current Every Day Smoker, smokes 1/4 ppd)) Family history: no significant family history Medications and Allergies Allergies Allergy/AdvReac Type Severity Reaction Status Date / Time Penicillins Allergy Itching Verified 03/05/19 22:41 strawberry Allergy Hives Verified 03/05/19 22:41 Home Medications Medication Instructions Recorded Confirmed Last Taken Type Apixaban [Eliquis] 1 tab PO BID #60 tablet 03/14/19 03/18/19 Unknown Rx Apixaban [Eliquis] 5 mg PO Q12HR tablet 03/14/19 03/18/19 Unknown Rx Aspirin [Aspirin BABY CHEW TAB] 81 mg PO QDAY #30 tab.chew 03/14/19 03/18/19 Unknown Rx AtorvaSTATin [Lipitor] 40 mg PO QHS #30 tablet 03/14/19 03/18/19 Unknown Rx Carvedilol [Coreg] 6.25 mg PO BID #60 tablet 03/14/19 03/18/19 Unknown Rx Lisinopril [Zestril TAB] 1 tab PO DAILY #30 tablet 03/14/19 03/18/19 Unknown Rx Torsemide [Demadex] 2 tab PO BID #60 tablet 03/14/19 03/18/19 Unknown Rx guaiFENesin ER [Mucinex ER] 600 mg PO BID #60 tablet 03/14/19 03/18/19 Unknown Rx hydrALAZINE [Apresoline TAB] 1 tab PO Q8HR #90 tab 03/14/19 03/18/19 Unknown Rx levoFLOXacin [Levaquin TAB] 500 mg PO QDAY #7 tablet 03/14/19 03/18/19 Unknown Rx oxyCODONE /ACETAMINOPHEN [Percocet 1 tab PO Q4H PRN #10 tablet 03/14/19 03/18/19 Unknown Rx 5/325 mg] Active Meds: Active Medications Acetaminophen (Tylenol) 650 mg PO Q4H PRN PRN Reason: Pain MILD(1-3)/Fever >100.5/TRUJILLO Albuterol (Proventil) 2.5 mg IH Q4HRT PRN PRN Reason: Shortness Of Breath Apixaban (Eliquis) 5 mg PO Q12HR SOUMYA; Protocol Aspirin (Baby Aspirin) 81 mg PO QDAY [facility] Atorvastatin Calcium (Lipitor) 40 mg PO QHS [facility] Carvedilol (Coreg) 6.25 mg PO BID [facility] Docusate Sodium (Colace) 100 mg PO BID [facility] Hydralazine HCl (Apresoline) 100 mg PO Q8HR [facility] Lisinopril (Zestril) 5 mg PO DAILY [facility] Morphine Sulfate (Morphine) 2 mg IV Q4H PRN PRN Reason: Pain, Moderate (4-6) Stop: 03/19/19 23:59 Nicotine (Habitrol) 14 mg TD QDAY [facility] Nitroglycerin (Nitrostat) 0.4 mg SL Q5M PRN PRN Reason: Chest Pain Ondansetron HCl (Zofran) 4 mg IV Q8H PRN PRN Reason: Nausea And Vomiting Oxycodone/Acetaminophen (Percocet 5/325) 1 tab PO Q6H PRN PRN Reason: Pain, Moderate (4-6) Sodium Chloride (Sodium Chloride Flush Syringe 10 Ml) 10 ml IV PRN PRN PRN Reason: LINE FLUSH Sodium Chloride (Sodium Chloride Flush Syringe 10 Ml) 10 ml IV BID SOUMYA Torsemide (Demadex) 40 mg PO BID@0600,1800 SOUMYA Review of Systems All systems: negative (we reviewed and no additional remarkable complaints except as noted below) Cardiovascular: chest pain, shortness of breath, leg edema Respiratory: shortness of breath, dyspnea on exertion Gastrointestinal: nausea Exam - Physical Exam Narrative exam: Physical exam General appearance: Present: mild distress, chronically ill-appearing, alert and oriented 3 -[place]ik adult male - EENT Eyes: Present: PERRL, EOM intact ENT: hearing intact, poor dentition - Neck Neck: Present: supple, normal ROM - Respiratory Respiratory effort: Non-labored Respiratory: bilateral: diminished (bases) - Cardiovascular Heart rate: 124 (bpm) Rhythm: Afib Heart Sounds: Present: S1 & S2. Absent: rub, click - Extremities Extremities: no ischemia, pulses intact, abnormal (bilateral lower extremity 2+ pitting edema) - Peripheral Assessment Peripheral Pulses: within normal limits - Abdominal General gastrointestinal: soft, non-tender, normal bowel sounds - Integumentary Integumentary: Present: warm, dry - Musculoskeletal Musculoskeletal: generalized weakness - Psychiatric Psychiatric: cooperative - Constitutional Vitals: Temp Pulse Resp BP Pulse Ox 99.0 F 103 H 20 114/78 98 03/18/19 21:23 03/18/19 23:06 03/18/19 22:15 03/18/19 23:06 03/18/19 22:15 Results - Labs CBC & Chem 7: 03/18/19 21:31 18 21:31 Labs: Laboratory Last Values WBC 9.6 K/mm3 (4.5-11.0) 03/18/19 21:31 RBC 4.04 M/mm3 (3.65-5.03) 03/18/19 21:31 Hgb 11.6 gm/dl (11.8-15.2) L 03/18/19 21:31 Hct 35.8 % (35.5-45.6) 03/18/19 21:31 MCV 89 fl (84-94) 03/18/19 21:31 MCH 29 pg (28-32) 03/18/19 21:31 MCHC 33 % (32-34) 03/18/19 21:31 RDW 18.7 % (13.2-15.2) H 03/18/19 21:31 Plt Count 169 K/mm3 (140-440) 03/18/19 21:31 Lymph % (Auto) 9.6 % (13.4-35.0) L 03/18/19 21:31 [place] % (Auto) 14.8 % (0.0-7.3) H 03/18/19 21:31 Eos % (Auto) 0.3 % (0.0-4.3) 03/18/19 21:31 Baso % (Auto) 0.6 % (0.0-1.8) 03/18/19 21:31 Lymph # 0.9 K/mm3 (1.2-5.4) L 03/18/19 21:31 [place] # 1.4 K/mm3 (0.0-0.8) H 03/18/19 21:31 Eos # 0.0 K/mm3 (0.0-0.4) 03/18/19 21:31 Baso # 0.1 K/mm3 (0.0-0.1) 03/18/19 21:31 Seg Neutrophils % 74.7 % (40.0-70.0) H 03/18/19 21:31 Seg Neutrophils # 7.2 K/mm3 (1.8-7.7) 03/18/19 21:31 PT 17.3 Sec. (12.2-14.9) H 03/18/19 23:43 INR 1.45 (0.87-1.13) H 03/18/19 23:43 APTT 35.1 Sec. (24.2-36.6) 03/18/19 23:43 Sodium 138 mmol/L (137-145) 03/18/19 21:31 Potassium 4.0 mmol/L (3.6-5.0) 03/18/19 21:31 Chloride 100.8 mmol/L (98-107) 03/18/19 21:31 Carbon Dioxide 24 mmol/L (22-30) 03/18/19 21:31 17 mmol/L 03/18/19 21:31 BUN 26 mg/dL (9-20) H 03/18/19 21:31 1.4 mg/dL (0.8-1.5) 03/18/19 21:31 Estimated GFR > 60 ml/min 03/18/19 21:31 19 % 03/18/19 21:31 Glucose 99 mg/dL (75-100) 03/18/19 21:31 Calcium 9.1 mg/dL (8.4-10.2) 03/18/19 21:31 0.016 ng/mL (0.00-0.029) 03/19/19 00:35 - Imaging and Cardiology Chest x-ray: report reviewed (LUNGS / PLEURA: Interstitial pulmonary edema has improved. No change in the right No pneumothorax. ), image reviewed Assessment and Plan Assessment and plan: 62-year-old -[place] male was an ongoing smoker with a history of chronic systolic HF with EF 15-20%, A-fib, IA on anticoagulation with Eliquis, CKD, hypertension, diabetes, COPD on 2L home O2, and tobacco abuse presents [facility] ED with complaints of nonradiating intermittent left-sided chest pain. Pt was found to be in A-fib with RVR. He was given IV Cardizem 10mg, with no decline in HR. He was started on Cardizem drip with improvement in HR. Cardizem gtt and it has since been d.c's. CXR showed improvement in interstitial pulmonary with No change in the right. Troponin negx 1. Atrial fibrillation with RVR- new onset Acute Chest Pain Non-ischemic cardiomyopathy EF 15-20%; ICD Chronic Respiratory Failure- continuous 2L home O2 CDK2 DM2 HTN Hx of IA on Eliquis ??GERD Anemia Tobacco abuse Plan: Continue supportive care Continuos telemetry monitoring Pain Mgmt Consulted Cardiology ([facility]) Received Cardizem and was responsive with HR 90's Troponin neg x1, continue to trend Monitor BP Resume Coreg 6.25, refill 5 mg daily, hydralazine 100 mg daily, torsemide 20 mg daily Received IV Lasix 40mg x1 Resume Eliquis Resume ASA 81mg, Lipitor 40 q hs Counseled for smoking cessation; order nicotine patch Monitor Hgb; transfuse prn Monitor renal function; avoid nephrotoxin agents Nephrology consulted POC BG monitoring SSI coverage Continue to monitor saturation Continue supplemental O2 Albuterol prn DVT PPX on Eliquia Advance Directives: No VTE prophylaxis?: Chemical Plan of care discussed with patient/family: Yes
[2019-03-19] MEDS: PERCOCET 5/325 PO PRN ×3 (04:41→20:16)
[2019-03-19 05:29] LABS: Basophils # (Auto) 0.1 K/mm3 (0.0-0.1); Eosinophils # (Auto) 0.1 K/mm3 (0.0-0.4); Eosinophils % (Auto) 1.1 % (0.0-4.3); Hematocrit 33.7 % (35.5-45.6); Hemoglobin 11.2 gm/dl (11.8-15.2); Mean Corpuscular HGB Conc 33 % (32-34); Mean Corpuscular Hemoglobin 29 pg (28-32); Mean Corpuscular Volume 87 fl (84-94); Monocytes # (Auto) 1.2 K/mm3 (0.0-0.8); Platelet Count 144 K/mm3 (140-440); Red Blood Count 3.87 M/mm3 (3.65-5.03); Red Cell Distribution Width 18.7 % (13.2-15.2)
[2019-03-19 05:46] LABS: BUN/Creatinine Ratio 19; Blood Urea Nitrogen 26 mg/dL (9-20); Calcium 8.6 mg/dL (8.4-10.2); Hemolysis Index 10
[2019-03-19] MEDS ORDERED: DEMADEX PO SCH (06:00)
[2019-03-19] MEDS: COLCHICINE PO SCH (06:10)
[2019-03-19] MEDS: DELTASONE PO SCH (06:10)
[2019-03-19] MEDS: APRESOLINE PO SCH ×3 (06:11→21:14)
--- NOTE | 2019-03-19 08:55 | Consultation ---
History of Present Illness Consult date: 03/19/19 Consult reason: atrial fibrillation History of present illness: This is a 53-year old male with multiple medical problems. He has a cardiac history of chronic atrial fibrillation and nonischemic cardiomyopathy with ejection fraction 15-20%. Patient has an indwelling cardiac defibrillator. Patient was recently discharged from this hospital with shortness of breath, right pleural effusion and intermediate probability for pulmonary embolism by V/Q scan, despite the patient's chronic oral anticoagulation therapy with Eliquis for atrial fibrillation. Patient returns with complaints of lower extremity pain associated with chest pain, admitted for further evaluation. Patient denies AICD discharge. Chest x- ray reports right pleural effusion. Cycled troponins are normal. An ECG shows atrial fibrillation with a well controlled ventricular response. Cardiac consultation has been requested. Past History Past Medical History: acute PA, COPD (2 L nasal cannula home oxygen), diabetes, heart failure, hypertension, stroke (left-sided residual weakness) Past Surgical History: Other (Internal Defibrillator) Social history: smoking (Current Every Day Smoker, smokes 1/4 ppd)) Family history: no significant family history Medications and Allergies Allergies Allergy/AdvReac Type Severity Reaction Status Date / Time Penicillins Allergy Itching Verified 03/05/19 22:41 strawberry Allergy Hives Verified 03/05/19 22:41 Home Medications Medication Instructions Recorded Confirmed Last Taken Type Apixaban [Eliquis] 1 tab PO BID #60 tablet 03/14/19 03/18/19 Unknown Rx Apixaban [Eliquis] 5 mg PO Q12HR tablet 03/14/19 03/18/19 Unknown Rx Aspirin [Aspirin BABY CHEW TAB] 81 mg PO QDAY #30 tab.chew 03/14/19 03/18/19 Unknown Rx AtorvaSTATin [Lipitor] 40 mg PO QHS #30 tablet 03/14/19 03/18/19 Unknown Rx Carvedilol [Coreg] 6.25 mg PO BID #60 tablet 03/14/19 03/18/19 Unknown Rx Lisinopril [Zestril TAB] 1 tab PO DAILY #30 tablet 03/14/19 03/18/19 Unknown Rx Torsemide [Demadex] 2 tab PO BID #60 tablet 03/14/19 03/18/19 Unknown Rx guaiFENesin ER [Mucinex ER] 600 mg PO BID #60 tablet 03/14/19 03/18/19 Unknown Rx hydrALAZINE [Apresoline TAB] 1 tab PO Q8HR #90 tab 03/14/19 03/18/19 Unknown Rx levoFLOXacin [Levaquin TAB] 500 mg PO QDAY #7 tablet 03/14/19 03/18/19 Unknown Rx oxyCODONE /ACETAMINOPHEN [Percocet 1 tab PO Q4H PRN #10 tablet 03/14/19 03/18/19 Unknown Rx 5/325 mg] Active Meds: Active Medications Acetaminophen (Tylenol) 650 mg PO Q4H PRN PRN Reason: Pain MILD(1-3)/Fever >100.5/TRUJILLO Albuterol (Proventil) 2.5 mg IH Q4HRT PRN PRN Reason: Shortness Of Breath Apixaban (Eliquis) 5 mg PO Q12HR [facility]; Protocol Aspirin (Baby Aspirin) 81 mg PO QDAY [facility] Atorvastatin Calcium (Lipitor) 40 mg PO QHS [facility] Carvedilol (Coreg) 6.25 mg PO BID [facility] Colchicine (Colchicine) 0.6 mg PO QDAY [facility] Last Admin: 03/19/19 06:10 Dose: 0.6 mg Documented by: Docusate Sodium (Colace) 100 mg PO BID [facility] Hydralazine HCl (Apresoline) 100 mg PO Q8HR [facility] Last Admin: 03/19/19 06:11 Dose: 100 mg Documented by: Lisinopril (Zestril) 5 mg PO DAILY [facility] Morphine Sulfate (Morphine) 2 mg IV Q4H PRN PRN Reason: Pain, Moderate (4-6) Stop: 03/19/19 23:59 Nicotine (Habitrol) 14 mg TD QDAY [facility] Nitroglycerin (Nitrostat) 0.4 mg SL Q5M PRN PRN Reason: Chest Pain Ondansetron HCl (Zofran) 4 mg IV Q8H PRN PRN Reason: Nausea And Vomiting Oxycodone/Acetaminophen (Percocet 5/325) 1 tab PO Q6H PRN PRN Reason: Pain, Moderate (4-6) Last Admin: 03/19/19 04:41 Dose: 1 tab Documented by: Pantoprazole Sodium (Protonix) 40 mg PO QDAY [facility] Prednisone (Deltasone) 20 mg PO QDAY [facility] Last Admin: 03/19/19 06:10 Dose: 20 mg Documented by: Sodium Chloride (Sodium Chloride Flush Syringe 10 Ml) 10 ml IV PRN PRN PRN Reason: LINE FLUSH Sodium Chloride (Sodium Chloride Flush Syringe 10 Ml) 10 ml IV BID [facility] Torsemide (Demadex) 40 mg PO BID@0600,1800 [facility] Last Admin: 03/19/19 06:11 Dose: 40 mg Documented by: Physical Examination Vital Signs Temp Pulse Resp BP Pulse Ox 99.0 F 108 H 17 123/90 95 03/18/19 21:23 03/18/19 21:23 03/18/19 21:23 03/18/19 21:23 03/18/19 21:23 General appearance: no acute distress HEENT: Positive: PERRL Neck: Positive: trachea midline Cardiac: Positive: irregularly irregular Lungs: Positive: Decreased Breath Sounds Neuro: Positive: Grossly Intact Extremities: Absent: edema Results 03/19/19 05:02 03/19/19 05:02 Coagulation 03/18/19 Range/Units 23:43 PT 17.3 H (12.2-14.9) Sec. INR 1.45 H (0.87-1.13) APTT 35.1 (24.2-36.6) Sec. CBC 03/18/19 03/19/19 Range/Units 21:31 05:02 WBC 9.6 8.7 (4.5-11.0) K/mm3 RBC 4.04 3.87 (3.65-5.03) M/mm3 Hgb 11.6 L 11.2 L (11.8-15.2) gm/dl Hct 35.8 33.7 L (35.5-45.6) % Plt Count 169 144 (140-440) K/mm3 Lymph # 0.9 L 1.0 L (1.2-5.4) K/mm3 [place] # 1.4 H 1.2 H (0.0-0.8) K/mm3 Eos # 0.0 0.1 (0.0-0.4) K/mm3 Baso # 0.1 0.1 (0.0-0.1) K/mm3 Comprehensive Metabolic Panel 03/18/19 03/19/19 Range/Units 21:31 05:02 Sodium 138 141 (137-145) mmol/L Potassium 4.0 4.0 (3.6-5.0) mmol/L Chloride 100.8 103.7 (98-107) mmol/L Carbon Dioxide 24 24 (22-30) mmol/L BUN 26 H 26 H (9-20) mg/dL Creatinine 1.4 1.4 (0.8-1.5) mg/dL Glucose 99 92 (75-100) mg/dL Calcium 9.1 8.6 (8.4-10.2) mg/dL Assessment and Plan Chest pain, atypical Chronic systolic heart failure Chronic atrial fibrillation Anticoagualted with ezequiel Cooper of Nonischemic cardiomyopathy pt reports recent negative workup at [facility] 3 months ago; records not available for review. EF 15-20% by echo 11/2018 Presence of AICD Hypertension Type 2 diabetes mellitus Chronic obstructive pulmonary disease CKD
--- NOTE | 2019-03-19 09:26 | Consultation ---
History of Present Illness - History of Present Illness My assessment and plan are as follows Patient has chronic kidney disease his right kidney appears to be more echogenic compared to left earlier this month his creatinine was almost close to 2 current creatinine is 1.4 patient has never been seen and followed in our office, I have advised him to make an appointment upon discharge He will be at risk for any form of contrast nephropathy due to his low ejection fraction His renal prognosis is not very good given the age, comorbidities, severe congestive heart failure low ejection fraction He is also at risk for end-stage renal disease I have adequately counseled and educated this patient at length Patient must take responsibility for his health he still continues to smoke with his several chronic severe health issues His prognosis is going to depend on that which is currently felt to be very poor, he could also be very high mortality risk due to multiple comorbidities cardiac issues etc. He will need to make an appointment office for follow-up upon discharge Patient has been adequately counseled and educated regarding all the renal related issues Renal care plan was discussed with patient Prognosis remains guarded at this time We'll continue to follow and make recommendation from renal standpoint She have any questions please feel free to contact me at [phone] Mack Gamble M.D. [facility] [address] [place] [address] History of presenting illness Patient is a 53-year-old male who has been admitted here with chest pain prior to admission and is currently being worked up for that, During this admission his creatinine has been noted to be around 1.4 bicarbonate 24 hemoglobin was 11.6 Chest x-ray obtained shows evidence of right-sided pleural effusion which is chronic With bilateral pulmonary vascular congestion, and the prior admission on March 05 his creatinine was 1.8 and was 2.2 03/10/2019 Patient has never been seen in our office He is well educated about the degree and severity of renal insufficiency Renal ultrasonogram obtained March 06 shows evidence of chronic kidney disease in the right kidney, appears to be more echogenic compared to left Blood pressure has been stable Past medical history significant for Hypertension Atrial fibrillation Severe cardiomyopathy ejection fraction 15-20% Status post defibrillator placement CVA Diabetes COPD Congestive heart failure Neuropathy Oxygen dependent On exam anticoagulation Chronic edema has been on torsemide Chronic ongoing tobacco abuse Current allergies: Penicillin strawberry Home medication/present medication: Reviewed Social history, family history: Reviewed Review of systems positive for chest pain and some shortness of breath which is chronic patient is oxygen dependent Physical examination: General: No acute distress HEENT: Oral mucosa moist no icterus, no facial swelling Neck: Supple no thyromegaly no lymphadenopathy no JVD Chest: prolonged expiratory phase bilateral wheezes Heart: Regular rate and rhythm S1-S2 heard no S3-S4 Abdomen: Soft nontender no organomegaly no masses palpable no renal bruit no suprapubic masses no CVA tenderness Dermatology: No skin rashes noted Extremity: Less than 1+ peripheral edema, dry skin no petechial rashes Musculoskeletal: No joint effusion noted in knee and ankle area Psych: No evidence of agitation and aggression noted Neurological: Alert awake follows commands no tremors no myoclonus Back: No CVA tenderness Past History Past Medical History: acute ND, COPD (2 L nasal cannula home oxygen), diabetes, heart failure, hypertension, stroke (left-sided residual weakness) Past Surgical History: Other (Internal Defibrillator) Social history: smoking (Current Every Day Smoker, smokes 1/4 ppd)) Family history: no significant family history Medications and Allergies Allergies Allergy/AdvReac Type Severity Reaction Status Date / Time Penicillins Allergy Itching Verified 03/05/19 22:41 strawberry Allergy Hives Verified 03/05/19 22:41 Home Medications Medication Instructions Recorded Confirmed Last Taken Type Apixaban [Eliquis] 1 tab PO BID #60 tablet 03/14/19 03/18/19 Unknown Rx Apixaban [Eliquis] 5 mg PO Q12HR tablet 03/14/19 03/18/19 Unknown Rx Aspirin [Aspirin BABY CHEW TAB] 81 mg PO QDAY #30 tab.chew 03/14/19 03/18/19 Unknown Rx AtorvaSTATin [Lipitor] 40 mg PO QHS #30 tablet 03/14/19 03/18/19 Unknown Rx Carvedilol [Coreg] 6.25 mg PO BID #60 tablet 03/14/19 03/18/19 Unknown Rx Lisinopril [Zestril TAB] 1 tab PO DAILY #30 tablet 03/14/19 03/18/19 Unknown Rx Torsemide [Demadex] 2 tab PO BID #60 tablet 03/14/19 03/18/19 Unknown Rx guaiFENesin ER [Mucinex ER] 600 mg PO BID #60 tablet 03/14/19 03/18/19 Unknown Rx hydrALAZINE [Apresoline TAB] 1 tab PO Q8HR #90 tab 03/14/19 03/18/19 Unknown Rx levoFLOXacin [Levaquin TAB] 500 mg PO QDAY #7 tablet 03/14/19 03/18/19 Unknown Rx oxyCODONE /ACETAMINOPHEN [Percocet 1 tab PO Q4H PRN #10 tablet 03/14/19 03/18/19 Unknown Rx 5/325 mg] Active Meds: Active Medications Acetaminophen (Tylenol) 650 mg PO Q4H PRN PRN Reason: Pain MILD(1-3)/Fever >100.5/TRUJILLO Albuterol (Proventil) 2.5 mg IH Q4HRT PRN PRN Reason: Shortness Of Breath Apixaban (Eliquis) 5 mg PO Q12HR [facility]; Protocol Aspirin (Baby Aspirin) 81 mg PO QDAY [facility] Atorvastatin Calcium (Lipitor) 40 mg PO QHS [facility] Carvedilol (Coreg) 6.25 mg PO BID [facility] Colchicine (Colchicine) 0.6 mg PO QDAY [facility] Last Admin: 03/19/19 06:10 Dose: 0.6 mg Documented by: Docusate Sodium (Colace) 100 mg PO BID [facility] Hydralazine HCl (Apresoline) 100 mg PO Q8HR [facility] Last Admin: 03/19/19 06:11 Dose: 100 mg Documented by: Lisinopril (Zestril) 5 mg PO DAILY [facility] Morphine Sulfate (Morphine) 2 mg IV Q4H PRN PRN Reason: Pain, Moderate (4-6) Stop: 03/19/19 23:59 Last Admin: 03/19/19 09:01 Dose: 2 mg Documented by: Nicotine (Habitrol) 14 mg TD QDAY [facility] Nitroglycerin (Nitrostat) 0.4 mg SL Q5M PRN PRN Reason: Chest Pain Ondansetron HCl (Zofran) 4 mg IV Q8H PRN PRN Reason: Nausea And Vomiting Oxycodone/Acetaminophen (Percocet 5/325) 1 tab PO Q6H PRN PRN Reason: Pain, Moderate (4-6) Last Admin: 03/19/19 04:41 Dose: 1 tab Documented by: Pantoprazole Sodium (Protonix) 40 mg PO QDAY [facility] Prednisone (Deltasone) 20 mg PO QDAY [facility] Last Admin: 03/19/19 06:10 Dose: 20 mg Documented by: Sodium Chloride (Sodium Chloride Flush Syringe 10 Ml) 10 ml IV PRN PRN PRN Reason: LINE FLUSH Sodium Chloride (Sodium Chloride Flush Syringe 10 Ml) 10 ml IV BID [facility] Torsemide (Demadex) 40 mg PO BID@0600,1800 [facility] Last Admin: 03/19/19 06:11 Dose: 40 mg Documented by: Exam - Vital Signs Vital signs: Vital Signs Temp Pulse Resp BP Pulse Ox 99.0 F 108 H 17 123/90 95 03/18/19 21:23 03/18/19 21:23 03/18/19 21:23 03/18/19 21:23 03/18/19 21:23 Results - Lab Results 03/19/19 05:02 03/19/19 05:02 Most recent lab results Calcium 8.6 mg/dL (8.4-10.2) 03/19/19 05:02
[2019-03-19] MEDS ORDERED: TORSEMIDE PO SCH (10:00)
[2019-03-19] MEDS: ZESTRIL PO SCH (10:30)
[2019-03-19] MEDS: ELIQUIS PO SCH ×2 (10:38→21:19)
[2019-03-19] MEDS: PROTONIX PO SCH (10:38)
[2019-03-19] MEDS: BABY ASPIRIN PO SCH (10:38)
[2019-03-19] MEDS: COLACE PO SCH ×2 (10:38→21:19)
[2019-03-19] MEDS: COREG PO SCH ×2 (10:38→21:19)
[2019-03-19] MEDS: HABITROL TD SCH (10:38)
--- NOTE | 2019-03-19 12:33 | Progress Note ---
Assessment and Plan Assessment and plan: --Atypical Chest pain ; probably noncardiac , however patient has multiple risk factors Serial cardiac enzymes, continue cardiac medications, cardiology evaluation --Chronic A. fib with rapid ventricular rate; now rate controlled, continue beta blockers, and Eliquis --Chronic systolic congestive heart failure; ejection fraction 15-20% 3 months ago Continue antifailure medication, cardiology following --H/O AICD : stable --2 diabetes mellitus; Accu-Chek sliding scale coverage and ADA diet Insulin as needed --History of chronic kidney disease; creatinine 1.4, closely monitor renal function Avoid nephrotoxins --H/O Gout: Continue anti-inflammatories, pain medications Supportive care --Hypertension; moderate control, continue current antihypertensives When necessary hydralazine --History of COPD; chronic hypoxic respiratory failure Oxygen titrate to O2 sats more than 90%, nebulizers, steroids Antibiotics if needed --DVT prophylaxis:on Eliquis --Ongoing tobacco use; smoking cessation counseling done Nicotine patch as needed Plan of care is reviewed with the patient and his nurse Consultations noted in the patient did Possible discharge in 1-2 days if stable History Interval history: Patient seen and examined medical records reviewed Patient was admitted with worsening shortness of breath And atypical chest pain Patient continues to have intermittent chest pain And right knee pain secondary to graft Vital signs reviewed Hospitalist Physical - Constitutional Vitals: Temp Pulse Resp BP Pulse Ox 97.9 F 94 H 18 101/84 96 03/19/19 11:17 03/19/19 11:17 03/19/19 11:17 03/19/19 11:17 03/19/19 11:17 General appearance: Present: no acute distress, well-nourished - EENT Eyes: Present: PERRL, EOM intact - Neck Neck: Present: supple, normal ROM - Respiratory Respiratory effort: normal Respiratory: bilateral: diminished, negative: rales, rhonchi, wheezing - Cardiovascular Rhythm: regular Heart Sounds: Present: S1 & S2 - Extremities Extremities: no ischemia, No edema - Abdominal General gastrointestinal: soft, non-tender, non-distended, normal bowel sounds - Integumentary Integumentary: Present: clear, warm - Psychiatric Psychiatric: appropriate mood/affect, cooperative - Neurologic Neurologic: moves all extremities Results - Labs CBC & Chem 7: 03/19/19 05:02 03/19/19 05:02 Labs: Laboratory Last Values WBC 8.7 K/mm3 (4.5-11.0) 03/19/19 05:02 RBC 3.87 M/mm3 (3.65-5.03) 03/19/19 05:02 Hgb 11.2 gm/dl (11.8-15.2) L 03/19/19 05:02 Hct 33.7 % (35.5-45.6) L 03/19/19 05:02 MCV 87 fl (84-94) 03/19/19 05:02 MCH 29 pg (28-32) 03/19/19 05:02 MCHC 33 % (32-34) 03/19/19 05:02 RDW 18.7 % (13.2-15.2) H 03/19/19 05:02 Plt Count 144 K/mm3 (140-440) 03/19/19 05:02 Lymph % (Auto) 11.0 % (13.4-35.0) L 03/19/19 05:02 [place] % (Auto) 14.0 % (0.0-7.3) H 03/19/19 05:02 Eos % (Auto) 1.1 % (0.0-4.3) 03/19/19 05:02 Baso % (Auto) 1.0 % (0.0-1.8) 03/19/19 05:02 Lymph # 1.0 K/mm3 (1.2-5.4) L 03/19/19 05:02 [place] # 1.2 K/mm3 (0.0-0.8) H 03/19/19 05:02 Eos # 0.1 K/mm3 (0.0-0.4) 03/19/19 05:02 Baso # 0.1 K/mm3 (0.0-0.1) 03/19/19 05:02 Seg Neutrophils % 72.9 % (40.0-70.0) H 03/19/19 05:02 Seg Neutrophils # 6.4 K/mm3 (1.8-7.7) 03/19/19 05:02 PT 17.3 Sec. (12.2-14.9) H 03/18/19 23:43 INR 1.45 (0.87-1.13) H 03/18/19 23:43 APTT 35.1 Sec. (24.2-36.6) 03/18/19 23:43 Sodium 141 mmol/L (137-145) 03/19/19 05:02 Potassium 4.0 mmol/L (3.6-5.0) 03/19/19 05:02 Chloride 103.7 mmol/L (98-107) 03/19/19 05:02 Carbon Dioxide 24 mmol/L (22-30) 03/19/19 05:02 17 mmol/L 03/19/19 05:02 BUN 26 mg/dL (9-20) H 03/19/19 05:02 1.4 mg/dL (0.8-1.5) 03/19/19 05:02 Estimated GFR > 60 ml/min 03/19/19 05:02 19 % 03/19/19 05:02 Glucose 92 mg/dL (75-100) 03/19/19 05:02 Calcium 8.6 mg/dL (8.4-10.2) 03/19/19 05:02 0.016 ng/mL (0.00-0.029) 03/19/19 05:02 Active Medications - Current Medications Current Medications: Generic Name Dose Route Start Last Admin Trade Name Freq PRN Reason Stop Dose Admin Acetaminophen 650 mg 03/18/19 23:08 Tylenol PO Q4H PRN Pain MILD(1-3)/Fever >100.5/TRUJILLO Albuterol 2.5 mg 03/18/19 23:08 Proventil IH Q4HRT PRN Shortness Of Breath Apixaban 5 mg 03/19/19 10:00 03/19/19 10:38 Eliquis PO 5 mg Q12HR [facility] Administration Protocol Aspirin 81 mg 03/19/19 10:00 03/19/19 10:38 Baby Aspirin PO 81 mg QDAY [facility] Administration Atorvastatin Calcium 40 mg 03/19/19 22:00 Lipitor PO QHS [facility] Carvedilol 6.25 mg 03/19/19 10:00 03/19/19 10:38 Coreg PO 6.25 mg BID [facility] Administration Colchicine 0.6 mg 03/19/19 06:00 03/19/19 06:10 Colchicine PO 0.6 mg QDAY [facility] Administration Docusate Sodium 100 mg 03/19/19 10:00 03/19/19 10:38 Colace PO 100 mg BID [facility] Administration Furosemide 40 mg 03/19/19 18:00 Lasix IV 0600,1800 [facility] Hydralazine HCl 100 mg 03/19/19 06:00 03/19/19 06:11 Apresoline PO 100 mg Q8HR [facility] Administration Lisinopril 5 mg 03/19/19 10:00 Zestril PO DAILY [facility] Morphine Sulfate 2 mg 03/18/19 23:08 03/19/19 09:01 Morphine IV 03/19/19 23:59 2 mg Q4H PRN Administration Pain, Moderate (4-6) Nicotine 14 mg 03/19/19 10:00 03/19/19 10:38 Habitrol TD Not Given QDAY [facility] Nitroglycerin 0.4 mg 03/18/19 23:06 Nitrostat SL Q5M PRN Chest Pain Ondansetron HCl 4 mg 03/18/19 23:08 Zofran IV Q8H PRN Nausea And Vomiting Oxycodone/Acetaminophen 1 tab 03/18/19 23:08 03/19/19 04:41 Percocet 5/325 PO 1 tab Q6H PRN Administration Pain, Moderate (4-6) Pantoprazole Sodium 40 mg 03/19/19 10:00 03/19/19 10:38 Protonix PO 40 mg QDAY [facility] Administration Prednisone 20 mg 03/19/19 06:00 03/19/19 06:10 Deltasone PO 20 mg QDAY [facility] Administration Sodium Chloride 10 ml 03/18/19 23:06 Sodium Chloride Flush Syringe 10 Ml IV PRN PRN LINE FLUSH Sodium Chloride 10 ml 03/19/19 10:00 Sodium Chloride Flush Syringe 10 Ml IV BID [facility] Spironolactone 25 mg 03/19/19 14:00 Aldactone PO QDAY [facility]
[2019-03-19] MEDS: ALDACTONE PO SCH (14:20)
[2019-03-19] MEDS: SODIUM CHLORIDE FLUSH SYRINGE 10 ML IV SCH ×2 (19:57→22:38)
[2019-03-19] MEDS: LASIX IV SCH (19:57)
[2019-03-20] MEDS: PERCOCET 5/325 PO PRN ×3 (01:55→18:42)
[2019-03-20] MEDS: APRESOLINE PO SCH ×3 (05:08→22:18)
[2019-03-20] MEDS: LASIX IV SCH ×2 (05:09→18:37)
[2019-03-20] MEDS: BABY ASPIRIN PO SCH (10:46)
[2019-03-20] MEDS: PROTONIX PO SCH (10:46)
[2019-03-20] MEDS: COLCHICINE PO SCH (10:46)
[2019-03-20] MEDS: COLACE PO SCH ×2 (10:46→22:18)
[2019-03-20] MEDS: ELIQUIS PO SCH ×2 (10:47→22:18)
[2019-03-20] MEDS: COREG PO SCH ×2 (10:47→22:18)
[2019-03-20] MEDS: DELTASONE PO SCH (10:48)
[2019-03-20] MEDS: ALDACTONE PO SCH (10:48)
[2019-03-20] MEDS: HABITROL TD SCH (10:49)
[2019-03-20] MEDS: ZESTRIL PO SCH (10:52)
[2019-03-20] MEDS: SODIUM CHLORIDE FLUSH SYRINGE 10 ML IV SCH ×2 (10:52→22:46)
--- NOTE | 2019-03-20 11:39 | Progress Note ---
Assessment and Plan - Patient Problems (1) Gouty arthritis Current Visit: Yes Status: Acute Plan to address problem: We will defer to internal medicine for further management of patient's arthritis. No further cardiac workup, continue cardiac medical therapy as p reviously outlined. We will follow on an intermittent basis. Subjective Date of service: 03/20/19 Interval history: Patient's main complaints continue to be arthritic pain of his knees and feet, which he attributes to an attack of his gouty arthritis. There are no cardiac complaints, and no active cardiac issues. Objective Vital Signs Temp Pulse Pulse Resp BP Pulse Ox 03/20/19 10:52 87 108/76 03/20/19 10:48 87 108/76 03/20/19 10:47 87 108/76 03/20/19 10:00 18 03/20/19 04:42 97.9 F 87 18 108/76 92 03/20/19 00:09 98.2 F 78 18 103/73 99 03/19/19 22:00 88 03/19/19 19:42 97.9 F 83 18 108/53 98 03/19/19 16:00 94 H 03/19/19 15:44 97.9 F 87 18 101/71 91 03/19/19 14:27 20 03/19/19 11:54 94 H 96 - Physical Examination General: No Apparent Distress HEENT: Positive: PERRL Neck: Positive: trachea midline Cardiac: Positive: Reg Rate and Rhythm Lungs: Positive: Decreased Breath Sounds Neuro: Positive: Grossly Intact Abdomen: Positive: Soft Skin: Positive: Clear Extremities: Absent: edema
--- NOTE | 2019-03-20 12:33 | Progress Note ---
Assessment and Plan Impression * Chronic kidney disease * Chronic atrial fibrillation * Chest pain * Hypertension * Gout Recommendations * Patient's renal function appears to be stable * Avoid nephrotoxin * Patient is at risk of contrast nephropathy * His serun creatinine was higher during his prior admission. * Patient does have a history of chronic kidney disease. He used to follow up with the airline lounge receptionist in [place]. However does not recall the baseline Subjective Date of service: 03/20/19 Interval history: Patient is comfortable today. No nausea or vomiting. Complains of right knee pain. Denies any shortness of breath Objective - Vital Signs Vital signs: Vital Signs - 12hr 03/20/19 03/20/19 03/20/19 04:42 10:00 10:47 Temperature 97.9 F Pulse Rate 87 87 Respiratory 18 18 Rate Blood Pressure 108/76 108/76 O2 Sat by Pulse 92 Oximetry 03/20/19 03/20/19 10:48 10:52 Temperature Pulse Rate 87 87 Respiratory Rate Blood Pressure 108/76 108/76 O2 Sat by Pulse Oximetry - General Appearance General appearance: well-developed, well-nourished, appears stated age EENT: PERRL, mucous membranes moist Neck: no JVD, no thyromegaly, no carotid bruit, supple Respiratory: Present: Clear to Ascultation Cardiology: irregular Gastrointestinal: normal, normoactive bowel sounds Integumentary: other (no edema) - Lab 03/19/19 05:02 03/19/19 05:02 Most recent lab results Calcium 8.6 mg/dL (8.4-10.2) 03/19/19 05:02 Medications & Allergies - Medications Allergies/Adverse Reactions: Allergies Penicillins Allergy (Verified 03/05/19 22:41) Itching strawberry Allergy (Verified 03/05/19 22:41) Hives Home Medications: Home Medications Medication Instructions Recorded Confirmed Last Taken Type Apixaban [Eliquis] 1 tab PO BID #60 tablet 03/14/19 03/18/19 Unknown Rx Apixaban [Eliquis] 5 mg PO Q12HR tablet 03/14/19 03/18/19 Unknown Rx Aspirin [Aspirin BABY CHEW TAB] 81 mg PO QDAY #30 tab.chew 03/14/19 03/18/19 Unknown Rx AtorvaSTATin [Lipitor] 40 mg PO QHS #30 tablet 03/14/19 03/18/19 Unknown Rx Carvedilol [Coreg] 6.25 mg PO BID #60 tablet 03/14/19 03/18/19 Unknown Rx Lisinopril [Zestril TAB] 1 tab PO DAILY #30 tablet 03/14/19 03/18/19 Unknown Rx Torsemide [Demadex] 2 tab PO BID #60 tablet 03/14/19 03/18/19 Unknown Rx guaiFENesin ER [Mucinex ER] 600 mg PO BID #60 tablet 03/14/19 03/18/19 Unknown Rx hydrALAZINE [Apresoline TAB] 1 tab PO Q8HR #90 tab 03/14/19 03/18/19 Unknown Rx levoFLOXacin [Levaquin TAB] 500 mg PO QDAY #7 tablet 03/14/19 03/18/19 Unknown Rx oxyCODONE /ACETAMINOPHEN [Percocet 1 tab PO Q4H PRN #10 tablet 03/14/19 03/18/19 Unknown Rx 5/325 mg] Active Medications: Generic Name Dose Route Start Last Admin Trade Name Freq PRN Reason Stop Dose Admin Acetaminophen 650 mg 03/18/19 23:08 Tylenol PO Q4H PRN Pain MILD(1-3)/Fever >100.5/TRUJILLO Albuterol 2.5 mg 03/18/19 23:08 Proventil IH Q4HRT PRN Shortness Of Breath Apixaban 5 mg 03/19/19 10:00 03/20/19 10:47 Eliquis PO 5 mg Q12HR SOUMYA Administration Protocol Aspirin 81 mg 03/19/19 10:00 03/20/19 10:46 Baby Aspirin PO 81 mg QDAY SOUMYA Administration Atorvastatin Calcium 40 mg 03/19/19 22:00 03/19/19 21:18 Lipitor PO 40 mg QHS SOUMYA Administration Carvedilol 6.25 mg 03/19/19 10:00 03/20/19 10:47 Coreg PO 6.25 mg BID SOUMYA Administration Colchicine 0.6 mg 03/19/19 06:00 03/20/19 10:46 Colchicine PO 0.6 mg QDAY SOUMYA Administration Docusate Sodium 100 mg 03/19/19 10:00 03/20/19 10:46 Colace PO 100 mg BID SOUMYA Administration Furosemide 40 mg 03/19/19 18:00 03/20/19 05:09 Lasix IV 40 mg 0600,1800 SOUMYA Administration Hydralazine HCl 100 mg 03/19/19 06:00 03/20/19 05:08 Apresoline PO Not Given Q8HR SOUMYA Lisinopril 5 mg 03/19/19 10:00 03/20/19 10:52 Zestril PO 5 mg DAILY SOUMYA Administration Nicotine 14 mg 03/19/19 10:00 03/20/19 10:49 Habitrol TD Not Given QDAY SOUMYA Nitroglycerin 0.4 mg 03/18/19 23:06 Nitrostat SL Q5M PRN Chest Pain Ondansetron HCl 4 mg 03/18/19 23:08 Zofran IV Q8H PRN Nausea And Vomiting Oxycodone/Acetaminophen 1 tab 03/18/19 23:08 03/20/19 10:49 Percocet 5/325 PO 1 tab Q6H PRN Administration Pain, Moderate (4-6) Pantoprazole Sodium 40 mg 03/19/19 10:00 03/20/19 10:46 Protonix PO 40 mg QDAY SOUMYA Administration Prednisone 20 mg 03/19/19 06:00 03/20/19 10:48 Deltasone PO 20 mg QDAY SOUMYA Administration Sodium Chloride 10 ml 03/18/19 23:06 Sodium Chloride Flush Syringe 10 Ml IV PRN PRN LINE FLUSH Sodium Chloride 10 ml 03/19/19 10:00 03/20/19 10:52 Sodium Chloride Flush Syringe 10 Ml IV 10 ml BID SOUMYA Administration Spironolactone 25 mg 03/19/19 14:00 03/20/19 10:48 Aldactone PO 25 mg QDAY SOUMYA Administration
[2019-03-20] MEDS ORDERED: MORPHINE IV ONE (12:49)
--- NOTE | 2019-03-20 17:33 | Progress Note ---
Assessment and Plan Assessment and plan: --H/O Gout: Continue anti-inflammatories, pain medications Supportive care --Atypical Chest pain ; probably noncardiac , however patient has multiple risk factors Serial cardiac enzymes, continue cardiac medications, cardiology evaluation --Chronic A. fib with rapid ventricular rate; now rate controlled, continue beta blockers, and Eliquis --Chronic systolic congestive heart failure; ejection fraction 15-20% 3 months ago Continue antifailure medication, cardiology following --H/O AICD : stable --2 diabetes mellitus; Accu-Chek sliding scale coverage and ADA diet Insulin as needed --History of chronic kidney disease; creatinine 1.4, closely monitor renal function Avoid nephrotoxins --Hypertension; moderate control, continue current antihypertensives When necessary hydralazine --History of COPD; chronic hypoxic respiratory failure Oxygen titrate to O2 sats more than 90%, nebulizers, steroids Antibiotics if needed --DVT prophylaxis:on Eliquis --Ongoing tobacco use; smoking cessation counseling done Nicotine patch as needed Plan of care is reviewed with the patient and his nurse Consultations noted in the patient did Possible discharge in 1-2 days if stable History Interval history: Patient seen and examined. Patient c/o rt knee pain,.slightly improved from yesterday Vital signs stable Hospitalist Physical - Constitutional Vitals: Temp Pulse Resp BP Pulse Ox 97.9 F 73 18 115/85 98 03/20/19 04:42 03/20/19 13:27 03/20/19 13:27 03/20/19 13:27 03/20/19 13:27 General appearance: Present: no acute distress, well-nourished - EENT Eyes: Present: PERRL, EOM intact - Neck Neck: Present: supple, normal ROM - Respiratory Respiratory effort: normal Respiratory: bilateral: diminished, negative: rales, rhonchi, wheezing - Cardiovascular Rhythm: regular Heart Sounds: Present: S1 & S2 - Extremities Extremities: no ischemia, No edema - Abdominal General gastrointestinal: soft, non-tender, non-distended, normal bowel sounds - Integumentary Integumentary: Present: clear, warm - Psychiatric Psychiatric: appropriate mood/affect, cooperative - Neurologic Neurologic: CNII-XII intact, moves all extremities Results - Labs CBC & Chem 7: 03/19/19 05:02 03/19/19 05:02 Labs: Laboratory Last Values WBC 8.7 K/mm3 (4.5-11.0) 03/19/19 05:02 RBC 3.87 M/mm3 (3.65-5.03) 03/19/19 05:02 Hgb 11.2 gm/dl (11.8-15.2) L 03/19/19 05:02 Hct 33.7 % (35.5-45.6) L 03/19/19 05:02 MCV 87 fl (84-94) 03/19/19 05:02 MCH 29 pg (28-32) 03/19/19 05:02 MCHC 33 % (32-34) 03/19/19 05:02 RDW 18.7 % (13.2-15.2) H 03/19/19 05:02 Plt Count 144 K/mm3 (140-440) 03/19/19 05:02 Lymph % (Auto) 11.0 % (13.4-35.0) L 03/19/19 05:02 [place] % (Auto) 14.0 % (0.0-7.3) H 03/19/19 05:02 Eos % (Auto) 1.1 % (0.0-4.3) 03/19/19 05:02 Baso % (Auto) 1.0 % (0.0-1.8) 03/19/19 05:02 Lymph # 1.0 K/mm3 (1.2-5.4) L 03/19/19 05:02 [place] # 1.2 K/mm3 (0.0-0.8) H 03/19/19 05:02 Eos # 0.1 K/mm3 (0.0-0.4) 03/19/19 05:02 Baso # 0.1 K/mm3 (0.0-0.1) 03/19/19 05:02 Seg Neutrophils % 72.9 % (40.0-70.0) H 03/19/19 05:02 Seg Neutrophils # 6.4 K/mm3 (1.8-7.7) 03/19/19 05:02 PT 17.3 Sec. (12.2-14.9) H 03/18/19 23:43 INR 1.45 (0.87-1.13) H 03/18/19 23:43 APTT 35.1 Sec. (24.2-36.6) 03/18/19 23:43 Sodium 141 mmol/L (137-145) 03/19/19 05:02 Potassium 4.0 mmol/L (3.6-5.0) 03/19/19 05:02 Chloride 103.7 mmol/L (98-107) 03/19/19 05:02 Carbon Dioxide 24 mmol/L (22-30) 03/19/19 05:02 17 mmol/L 03/19/19 05:02 BUN 26 mg/dL (9-20) H 03/19/19 05:02 1.4 mg/dL (0.8-1.5) 03/19/19 05:02 Estimated GFR > 60 ml/min 03/19/19 05:02 19 % 03/19/19 05:02 Glucose 92 mg/dL (75-100) 03/19/19 05:02 POC Glucose 148 (70-105) H 03/20/19 16:18 Calcium 8.6 mg/dL (8.4-10.2) 03/19/19 05:02 0.016 ng/mL (0.00-0.029) 03/19/19 05:02 Active Medications - Current Medications Current Medications: Generic Name Dose Route Start Last Admin Trade Name Freq PRN Reason Stop Dose Admin Acetaminophen 650 mg 03/18/19 23:08 Tylenol PO Q4H PRN Pain MILD(1-3)/Fever >100.5/TRUJILLO Albuterol 2.5 mg 03/18/19 23:08 Proventil IH Q4HRT PRN Shortness Of Breath Apixaban 5 mg 03/19/19 10:00 03/20/19 10:47 Eliquis PO 5 mg Q12HR SOUMYA Administration Protocol Aspirin 81 mg 03/19/19 10:00 03/20/19 10:46 Baby Aspirin PO 81 mg QDAY SOUMYA Administration Atorvastatin Calcium 40 mg 03/19/19 22:00 03/19/19 21:18 Lipitor PO 40 mg QHS SOUMYA Administration Carvedilol 6.25 mg 03/19/19 10:00 03/20/19 10:47 Coreg PO 6.25 mg BID SOUMYA Administration Colchicine 0.6 mg 03/19/19 06:00 03/20/19 10:46 Colchicine PO 0.6 mg QDAY SOUMYA Administration Docusate Sodium 100 mg 03/19/19 10:00 03/20/19 10:46 Colace PO 100 mg BID SOUMYA Administration Furosemide 40 mg 03/19/19 18:00 03/20/19 05:09 Lasix IV 40 mg 0600,1800 SOUMYA Administration Hydralazine HCl 100 mg 03/19/19 06:00 03/20/19 13:52 Apresoline PO 100 mg Q8HR SOUMYA Administration Lisinopril 5 mg 03/19/19 10:00 03/20/19 10:52 Zestril PO 5 mg DAILY SOUMYA Administration Nicotine 14 mg 03/19/19 10:00 03/20/19 10:49 Habitrol TD Not Given QDAY [facility] Nitroglycerin 0.4 mg 03/18/19 23:06 Nitrostat SL Q5M PRN Chest Pain Ondansetron HCl 4 mg 03/18/19 23:08 Zofran IV Q8H PRN Nausea And Vomiting Oxycodone/Acetaminophen 1 tab 03/18/19 23:08 03/20/19 10:49 Percocet 5/325 PO 1 tab Q6H PRN Administration Pain, Moderate (4-6) Pantoprazole Sodium 40 mg 03/19/19 10:00 03/20/19 10:46 Protonix PO 40 mg QDAY SOUMYA Administration Prednisone 20 mg 03/19/19 06:00 03/20/19 10:48 Deltasone PO 20 mg QDAY SOUMYA Administration Sodium Chloride 10 ml 03/18/19 23:06 Sodium Chloride Flush Syringe 10 Ml IV PRN PRN LINE FLUSH Sodium Chloride 10 ml 03/19/19 10:00 03/20/19 10:52 Sodium Chloride Flush Syringe 10 Ml IV 10 ml BID SOUMYA Administration Spironolactone 25 mg 03/19/19 14:00 03/20/19 10:48 Aldactone PO 25 mg QDAY SOUMYA Administration
[2019-03-21] MEDS: PERCOCET 5/325 PO PRN ×2 (00:15→06:02)
[2019-03-21] MEDS: APRESOLINE PO SCH (05:00)
[2019-03-21] MEDS: LASIX IV SCH (06:02)
[2019-03-21 08:32] VITALS: BP 110/81
[2019-03-21] MEDS: ELIQUIS PO SCH (09:05)
[2019-03-21] MEDS: BABY ASPIRIN PO SCH (09:05)
[2019-03-21] MEDS: COLACE PO SCH (09:05)
[2019-03-21] MEDS: COLCHICINE PO SCH (09:05)
[2019-03-21] MEDS: ZESTRIL PO SCH (09:06)
[2019-03-21] MEDS: PROTONIX PO SCH (09:06)
[2019-03-21] MEDS: DELTASONE PO SCH (09:06)
[2019-03-21] MEDS: COREG PO SCH (09:06)
[2019-03-21] MEDS: ALDACTONE PO SCH (09:07)
[2019-03-21] MEDS: HABITROL TD SCH (09:11)
[2019-03-21] MEDS: SODIUM CHLORIDE FLUSH SYRINGE 10 ML IV SCH (09:11)
--- NOTE | 2019-03-21 09:42 | Discharge Summary ---
Providers - Providers Date of Admission: 03/18/19 23:08 Date of discharge: 03/21/19 Attending physician: ILYA HARPER 03/18/19 23:06 Consult to Cardiology [CONS] Routine Consulting Provider: NURY ACEVEDO Reason For Exam: hx afib on eliquis, now RVR, 03/19/19 00:41 Consult to Physician [CONS] Routine Comment: Consulting Provider: ELLIS STARKS Physician Instructions: Reason For Exam: ckd 03/19/19 12:18 Physical Therapy Evaluation and Treat [CONS] Routine Comment: states new challenges ambulating Reason For Exam: weakness Primary care physician: SUPERVISOR BLASTING Hospitalization Condition: Fair Disposition: DC-01 TO HOME OR SELFCARE Time spent for discharge: 32 min Core Measure Documentation - Palliative Care Palliative Care/ Comfort Measures: Not Applicable - Core Measures Any of the following diagnoses?: heart failure - Heart Failure Discharge Requirements INES/ARB for LVSD if EF <40%: Yes Beta nathaniel at discharge: Yes Exam - Constitutional Vitals: Temp Pulse Resp BP Pulse Ox 98.4 F 74 18 110/81 94 03/21/19 07:43 03/21/19 09:07 03/21/19 07:43 03/21/19 09:07 03/21/19 04:54 General appearance: Present: no acute distress, well-nourished - EENT Eyes: Present: PERRL, EOM intact - Neck Neck: Present: supple, normal ROM - Respiratory Respiratory effort: normal Respiratory: bilateral: diminished, negative: rales, rhonchi, wheezing - Cardiovascular Rhythm: regular Heart Sounds: Present: S1 & S2 - Extremities Extremities: no ischemia, No edema - Abdominal General gastrointestinal: Present: soft, non-tender, non-distended, normal bowel sounds - Integumentary Integumentary: Present: clear, warm - Musculoskeletal Musculoskeletal: strength equal bilaterally - Psychiatric Psychiatric: appropriate mood/affect, cooperative - Neurologic Neurologic: moves all extremities Plan Activity: advance as tolerated Diet: other (cardiac diet) Additional Instructions: Advised see private apprentice painter brush for further evaluation of possible gout. Smoking cessation. History compliant with medications and diet follow-up visits with PMD Follow up with: BLANCHE FULLER MD [Primary Care Provider] - 7 Days NURY ACEVEDO MD [Staff Physician] - 7 Days Prescriptions: Spironolactone [Aldactone] 25 mg PO QDAY #30 tablet Colchicine 0.6 mg PO QDAY #10 capsule predniSONE [Deltasone] 20 mg PO QDAY #7 tablet Nicotine [Habitrol] 14 mg TD QDAY #30 patch oxyCODONE /ACETAMINOPHEN [Percocet 5/325 mg] 1 tab PO BID PRN #6 tablet PRN Reason: Pain, Moderate (4-6)
== END 2019-03-21 11:25 | disposition home or self-care (01) ==
LOC: ED 21:08 → 4A 23:08
PROVIDERS: ADMIT Internal Medicine; ATTEND Internal Medicine
DX: R07.89 Other chest pain (principal); I48.2 Chronic atrial fibrillation; I42.9 Cardiomyopathy, unspecified; J96.10 Chronic respiratory failure, unspecified whether with hypoxia or hypercapnia; I13.0 Hypertensive heart and chronic kidney disease with heart failure and stage 1 through stage 4 chronic kidney disease, or unspecified chronic kidney disease; E11.22 Type 2 diabetes mellitus with diabetic chronic kidney disease; N18.2 Chronic kidney disease, stage 2 (mild); I50.22 Chronic systolic (congestive) heart failure; I25.2 Old myocardial infarction; D64.9 Anemia, unspecified; J44.9 Chronic obstructive pulmonary disease, unspecified; F17.210 Nicotine dependence, cigarettes, uncomplicated; E11.40 Type 2 diabetes mellitus with diabetic neuropathy, unspecified; Z99.81 Dependence on supplemental oxygen; Z86.73 Personal history of transient ischemic attack (TIA), and cerebral infarction without residual deficits; Z79.899 Other long term (current) drug therapy; M10.9 Gout, unspecified
CPT/HCPCS: 36415; 71045; 80048; 82962; 84484; 85025; 85610; 85730; 93005; 93010; 96374; 96375; 96376; 99284; 99406; A9270; G0378; J1170; J1940; J2270; J2405; J3010; J7512

== ENCOUNTER 2019-05-03 10:52 | Inpatient (IN) | payer MEDICAID ==
[2019-05-03] MEDS ORDERED: CARDIZEM IV ONE (11:31)
[2019-05-03] MEDS ORDERED: ZOFRAN IV ONE (11:31)
[2019-05-03] MEDS ORDERED: SUBLIMAZE IV ONE (11:31)
--- NOTE | 2019-05-03 11:39 | Emergency Department Report ---
HPI - General Time Seen by Provider: 05/03/19 11:30 - HPI HPI: Room 26 --> 1 The patient is a 53-year-old male presenting with a chief complaint chest pain. Patient states this morning developed substernal chest pain feeling as though something sitting on his chest. Patient had palpitations in addition to shortness of breath, diaphoresis and nausea without vomiting. Upon arrival to the ED the patient was found to have A. fib with a rapid ventricular response. Patient was given diltiazem 20 mg IV with moderate improvement of his symptoms Location: [See above] Duration: [See above] Quality: [See above] Severity: [See above] Timing: [See above] Context: [See above] Modifying factors: [See above] Associated signs and symptoms: [see above] ED Past Medical Hx - Past Medical History Hx Hypertension: Yes Hx CVA: Yes (left sided weakness) Hx Heart Attack/AMI: Yes Hx Congestive Heart Failure: Yes Hx Diabetes: Yes Hx Asthma: Yes Hx COPD: Yes (2L [place] Home o2) Additional medical history: Neuropathy - Surgical History Hx Internal Defibrillator: Yes - Family History Family history: no significant - Social History Smoking Status: Former Smoker (none 3 months) Substance Use Type: None (denies illicit drug use) - Medications Home Medications: Home Medications Medication Instructions Recorded Confirmed Last Taken Type Apixaban [Eliquis] 1 tab PO BID #60 tablet 03/14/19 03/18/19 Unknown Rx Apixaban [Eliquis] 5 mg PO Q12HR tablet 03/14/19 03/18/19 Unknown Rx Aspirin [Aspirin BABY CHEW TAB] 81 mg PO QDAY #30 tab.chew 03/14/19 03/18/19 Unknown Rx AtorvaSTATin [Lipitor] 40 mg PO QHS #30 tablet 03/14/19 03/18/19 Unknown Rx Carvedilol [Coreg] 6.25 mg PO BID #60 tablet 03/14/19 03/18/19 Unknown Rx Lisinopril [Zestril TAB] 1 tab PO DAILY #30 tablet 03/14/19 03/18/19 Unknown Rx Torsemide [Demadex] 2 tab PO BID #60 tablet 03/14/19 03/18/19 Unknown Rx guaiFENesin ER [Mucinex ER] 600 mg PO BID #60 tablet 03/14/19 03/18/19 Unknown Rx hydrALAZINE [Apresoline TAB] 1 tab PO Q8HR #90 tab 03/14/19 03/18/19 Unknown Rx oxyCODONE /ACETAMINOPHEN [Percocet 1 tab PO Q4H PRN #10 tablet 03/14/19 03/18/19 Unknown Rx 5/325 mg] Colchicine 0.6 mg PO QDAY #10 capsule 03/21/19 Unknown Rx Nicotine [Habitrol] 14 mg TD QDAY #30 patch 03/21/19 Unknown Rx Spironolactone [Aldactone] 25 mg PO QDAY #30 tablet 03/21/19 Unknown Rx oxyCODONE /ACETAMINOPHEN [Percocet 1 tab PO BID PRN #6 tablet 03/21/19 Unknown Rx 5/325 mg] predniSONE [Deltasone] 20 mg PO QDAY #7 tablet 03/21/19 Unknown Rx ED Review of Systems ROS: Stated complaint: CHEST PAIN Other details as noted in HPI Constitutional: diaphoresis Eyes: denies: eye pain ENT: denies: throat pain Respiratory: shortness of breath Cardiovascular: chest pain, palpitations Endocrine: no symptoms reported Gastrointestinal: nausea. denies: vomiting Genitourinary: denies: dysuria Musculoskeletal: denies: back pain Neurological: denies: headache Physical Exam - Physical Exam Physical Exam: GENERAL: The patient is well-developed well-nourished male lying on stretcher. Be in moderate discomfort. [] HEENT: Normocephalic. Atraumatic. Extraocular motions are intact. Patient has moist mucous membranes. NECK: Supple. Trichomoniasis and midline CHEST/LUNGS: Clear to auscultation. There is no respiratory distress noted. HEART/CARDIOVASCULAR: Regular. There is no tachycardia. There is no gallop rub or murmur. ABDOMEN: Abdomen is soft, nontender. Patient has normal bowel sounds. There is no abdominal distention. SKIN: There is no rash. There is no edema. There is no diaphoresis. NEURO: The patient is awake, alert, and oriented. The patient is cooperative. The patient has normal speech MUSCULOSKELETAL: There is no evidence of acute injury. ED Medical Decision Making - Lab Data Result diagrams: 05/03/19 11:46 05/03/19 11:46 Laboratory Tests 05/03/19 05/03/19 05/03/19 11:46 11:46 11:46 WBC 7.1 RBC 4.08 Hgb 12.0 Hct 36.1 MCV 89 MCH 29 MCHC 33 RDW 19.5 H Plt Count 181 Lymph % (Auto) 12.2 L [place] % (Auto) 10.3 H Eos % (Auto) 0.8 Baso % (Auto) 1.1 Lymph # 0.9 L [place] # 0.7 Eos # 0.1 Baso # 0.1 Seg Neutrophils % 75.6 H Seg Neutrophils # 5.3 PT 14.9 INR 1.20 H APTT 30.4 Sodium 141 Potassium 4.5 Chloride 103.8 Carbon Dioxide 18 L Anion Gap 24 BUN 27 H Creatinine 1.4 Estimated GFR > 60 BUN/Creatinine Ratio 19 Glucose 71 L Calcium 9.6 Magnesium Total Creatine Kinase 38 L CK-MB (CK-2) 3.5 CK-MB (CK-2) Rel Index 9.2 H Troponin T 05/03/19 11:46 WBC RBC Hgb Hct MCV MCH MCHC RDW Plt Count Lymph % (Auto) [place] % (Auto) Eos % (Auto) Baso % (Auto) Lymph # [place] # Eos # Baso # Seg Neutrophils % Seg Neutrophils # PT INR APTT Sodium Potassium Chloride Carbon Dioxide Anion Gap BUN Creatinine Estimated GFR BUN/Creatinine Ratio Glucose Calcium Magnesium 2.20 Total Creatine Kinase CK-MB (CK-2) CK-MB (CK-2) Rel Index Troponin T < 0.010 - EKG Data -: EKG Interpreted by Me Rate: tachycardia (134 bpm) - EKG Data When compared to previous EKG there are: previous EKG unavailable Interpretation: other (A. fib with a rapid ventricular response) - Radiology Data Radiology results: image reviewed (chest x-ray) interpreted by me: Chest [id number] right costophrenic angle consistent with pleural effusion - Differential Diagnosis A. fib with a rapid ventricular response Critical care attestation.: If time is entered above; I have spent that time in minutes in the direct care of this critically ill patient, excluding procedure time. ED Disposition Clinical Impression: Atrial fibrillation with rapid ventricular response, Chest pain Disposition: OP ADMIT IP TO THIS HOSP Is pt being admited?: Yes Condition: Fair Instructions: Chest Pain (ED) Time of Disposition: 12:54 (hospitalist notified (Dr Smith))
[2019-05-03] MEDS ORDERED: CARDIZEM/D5W 100MG/100ML 100 MG/100 ML BAG IV SCH (12:00)
[2019-05-03 12:18] LABS: Basophils # (Auto) 0.1 K/mm3 (0.0-0.1); Basophils % (Auto) 1.1 % (0.0-1.8); Eosinophils # (Auto) 0.1 K/mm3 (0.0-0.4); Eosinophils % (Auto) 0.8 % (0.0-4.3); Hematocrit 36.1 % (35.5-45.6); Lymphocytes # (Auto) 0.9 K/mm3 (1.2-5.4); Lymphocytes % (Auto) 12.2 % (13.4-35.0); Mean Corpuscular HGB Conc 33 % (32-34); Mean Corpuscular Volume 89 fl (84-94); Monocytes # (Auto) 0.7 K/mm3 (0.0-0.8); Monocytes % (Auto) 10.3 % (0.0-7.3); Platelet Count 181 K/mm3 (140-440); Red Blood Count 4.08 M/mm3 (3.65-5.03); Red Cell Distribution Width 19.5 % (13.2-15.2)
[2019-05-03 12:25] LABS: INR 1.2 (0.87-1.13)
[2019-05-03 12:26] LABS: Partial Thromboplastin Time 30.4 Sec. (24.2-36.6)
[2019-05-03 12:43] LABS: Creatine Kinase MB 3.5 ng/mL (0.0-4.0)
[2019-05-03 12:45] LABS: BUN/Creatinine Ratio 19; Blood Urea Nitrogen 27 mg/dL (9-20); Calcium 9.6 mg/dL (8.4-10.2); Hemolysis Index 1
--- NOTE | 2019-05-03 13:00 | History and Physical Report ---
History of Present Illness Chief complaint: My chest hurts History of present illness: 53 YO Male with HTN, CVA with LHP, [place], CHF, DM complicated by Neuropathy, Asthma, COPD, Atrial Fib on Therapeutic Anticoagulation, Chronic Respiratory Failure on Home Oxygen 2L via [place] presents to ED for evaluation. Pt states that he experienced sudden onset of pain in his chest that began around 1000 hrs. Pt states that pain is 5/10, constant, nonradiating, substernal, crushing in nature, worsened with exertion. Pt also acknowledges chest pain with deep breathing, chest palpitations, as well as shortness of breath. Pt also ac knowledges decreased exercise tolerance. EMS notified, and upon arrival the patient found to be in distress, and transported to [facility]. Pt seen and evaluated in ED and found to have Atrial Fib with RVR, as well as symptoms consistent with CHF Decompensation, as well as Acute on Chronic Respiratory Failure. Pt initiated on Cardizem drip, and admitted to IM. Pt denies fever, chills, NVD, productive cough, skin rash, unintentional weight loss, night sweats, or recent ill contacts. Prior admission on 03/18/19 reviewed. All medication listed at time of admission has been reconciled. Past History Past Medical History: atrial fib, COPD, diabetes, heart failure, hypertension, stroke, other (chronic Respiratory Failure) Past Surgical History: Other (ICD placement) Social history: single. denies: smoking, alcohol abuse, prescription drug abuse Family history: diabetes, hypertension Medications and Allergies Allergies Allergy/AdvReac Type Severity Reaction Status Date / Time Penicillins Allergy Itching Verified 03/05/19 22:41 strawberry Allergy Hives Verified 03/05/19 22:41 Home Medications Medication Instructions Recorded Confirmed Last Taken Type Apixaban [Eliquis] 1 tab PO BID #60 tablet 03/14/19 03/18/19 Unknown Rx Apixaban [Eliquis] 5 mg PO Q12HR tablet 03/14/19 03/18/19 Unknown Rx Aspirin [Aspirin BABY CHEW TAB] 81 mg PO QDAY #30 tab.chew 03/14/19 03/18/19 Unknown Rx AtorvaSTATin [Lipitor] 40 mg PO QHS #30 tablet 03/14/19 03/18/19 Unknown Rx Carvedilol [Coreg] 6.25 mg PO BID #60 tablet 03/14/19 03/18/19 Unknown Rx Lisinopril [Zestril TAB] 1 tab PO DAILY #30 tablet 03/14/19 03/18/19 Unknown Rx Torsemide [Demadex] 2 tab PO BID #60 tablet 03/14/19 03/18/19 Unknown Rx guaiFENesin ER [Mucinex ER] 600 mg PO BID #60 tablet 03/14/19 03/18/19 Unknown Rx hydrALAZINE [Apresoline TAB] 1 tab PO Q8HR #90 tab 03/14/19 03/18/19 Unknown Rx oxyCODONE /ACETAMINOPHEN [Percocet 1 tab PO Q4H PRN #10 tablet 03/14/19 03/18/19 Unknown Rx 5/325 mg] Colchicine 0.6 mg PO QDAY #10 capsule 03/21/19 Unknown Rx Nicotine [Habitrol] 14 mg TD QDAY #30 patch 03/21/19 Unknown Rx Spironolactone [Aldactone] 25 mg PO QDAY #30 tablet 03/21/19 Unknown Rx oxyCODONE /ACETAMINOPHEN [Percocet 1 tab PO BID PRN #6 tablet 03/21/19 Unknown Rx 5/325 mg] predniSONE [Deltasone] 20 mg PO QDAY #7 tablet 03/21/19 Unknown Rx Active Meds: Active Medications Diltiazem HCl (Cardizem/D5w 100mg/100ml) 100 mg in 100 mls @ 5 mls/hr IV TITR S ; Protocol Last Admin: 05/03/19 12:00 Dose: 5 mg/hr, 5 mls/hr Documented by: Review of Systems Constitutional: no weight loss, no weight gain, no fever, no chills Ears, nose, mouth and throat: no ear pain, no ear discharge, no tinnitis, no decreased hearing, no nose pain, no nasal discharge Cardiovascular: chest pain, palpitations, rapid/irregular heart beat, shortness of breath, decreased exercise tolerance, no syncope Respiratory: no cough, no cough with sputum, no excessive sputum, no hemoptysis Gastrointestinal: no nausea, no vomiting, no diarrhea, no constipation, no change in bowel habits Genitourinary Male: no hematuria, no flank pain, no discharge, no urinary frequency, no urinary hesitancy Rectal: no pain, no incontinence, no bleeding Musculoskeletal: no neck stiffness, no neck pain, no shooting arm pain, no arm numbness/tingling Integumentary: no rash, no pruritis, no redness, no sores, no wounds Neurological: no head injury, no transient paralysis, no paralysis, no weakness, no parathesias, no numbness, no tingling Psychiatric: no anxiety, no memory loss, no change in sleep habits, no sleep disturbances, no insomnia, no hypersomnia, no change in appetite Endocrine: no cold intolerance, no heat intolerance, no polyphagia, no excessive thirst, no polydipsia, no polyuria, no nocturia Hematologic/Lymphatic: no easy bruising, no easy bleeding, no lymphadenopathy, no lymphedema Allergic/Immunologic: no urticaria, no allergic rhinitis, no persistent infections, no anaphylaxis, no angioedema Exam - Constitutional Vitals: Temp Pulse Resp BP Pulse Ox 98.5 F 104 H 21 116/89 96 05/03/19 11:00 05/03/19 12:00 05/03/19 12:00 05/03/19 12:00 05/03/19 12:00 General appearance: Present: mild distress - EENT Eyes: Present: PERRL ENT: hearing intact, clear oral mucosa - Neck Neck: Present: supple, normal ROM - Respiratory Respiratory effort: normal Respiratory: bilateral: CTA - Cardiovascular Rhythm: irregularly irregular Heart Sounds: Present: S1 & S2. Absent: rub, click - Extremities Extremities: pulses symmetrical, No edema Peripheral Pulses: within normal limits - Abdominal General gastrointestinal: Present: soft, non-tender, non-distended, normal bowel sounds Male genitourinary: Present: normal - Integumentary Integumentary: Present: clear, warm, dry - Musculoskeletal Musculoskeletal: gait normal, strength equal bilaterally - Psychiatric Psychiatric: appropriate mood/affect, intact judgment & insight - Neurologic Neurologic: CNII-XII intact, moves all extremities Results - Labs CBC & Chem 7: 05/03/19 11:46 05/03/19 11:46 Labs: Abnormal lab results 05/03/19 05/03/19 05/03/19 Range/Units 11:46 11:46 11:46 RDW 19.5 H (13.2-15.2) % Lymph % (Auto) 12.2 L (13.4-35.0) % [place] % (Auto) 10.3 H (0.0-7.3) % Lymph # 0.9 L (1.2-5.4) K/mm3 Seg Neutrophils % 75.6 H (40.0-70.0) % INR 1.20 H (0.87-1.13) Carbon Dioxide 18 L (22-30) mmol/L BUN 27 H (9-20) mg/dL Glucose 71 L (75-100) mg/dL Total Creatine Kinase 38 L (55-170) units/L CK-MB (CK-2) Rel Index 9.2 H (0-4) Assessment and Plan - Patient Problems (1) CHF (congestive heart failure) Current Visit: Yes Status: Acute Qualifiers: Heart failure chronicity: acute on chronic Plan to address problem: Admit to IMCU, Cardiology consulted, supplemental oxygen, pulse oximetry, bnp, d dimer, chest x ray, strict I/O, daily weight, diuresis, blood pressure control, (2) Atrial fibrillation with rapid ventricular response Current Visit: Yes Status: Acute Plan to address problem: Cardizem drip, admit to IMCU, therapeutic anticoagulation, cardiology consulted in ED. (3) Acute and chronic respiratory failure Current Visit: Yes Status: Acute Qualifiers: Respiratory failure complication: hypoxia Qualified Code(s): J96.21 - Acute and chronic respiratory failure with hypoxia Plan to address problem: Supplemental oxygen, nebulizer therapy, NIPPV as clinically indicated, chest x ray, CTA chest to evaluate for PE, d dimer, (4) HTN (hypertension) Current Visit: Yes Status: Acute Qualifiers: Hypertension type: essential hypertension Qualified Code(s): I10 - Essential (primary) hypertension Plan to address problem: Monitor BP q shift, continue medical management. (5) Diabetes Current Visit: Yes Status: Acute Plan to address problem: ADA diet, insulin, accu check, hypoglycemia protocol (6) COPD (chronic obstructive pulmonary disease) Current Visit: Yes Status: Acute Qualifiers: Chronic bronchitis type: mixed simple and mucopurulent Plan to address problem: supplemental oxygen,nebulizer therapy, NIPPV as clinically indicated, pulse oximetry (7) DVT prophylaxis Current Visit: Yes Status: Acute Plan to address problem: SCD to BLE while in bed, therapeutic anticoagulation
[2019-05-03] MEDS ORDERED: SODIUM CHLORIDE FLUSH SYRINGE 10 ML IV PRN (13:47)
[2019-05-03] MEDS ORDERED: APRESOLINE PO SCH (14:00)
[2019-05-03 14:05] LABS: Free T4 (Free Thyroxine) 1.43 ng/dL (0.76-1.46)
[2019-05-03] MEDS: APRESOLINE PO SCH ×2 (15:07→22:49)
[2019-05-03] MEDS ORDERED: LOVENOX SUB-Q SCH ×2 (16:26→22:00)
[2019-05-03] MEDS ORDERED: PERCOCET 5/325 ONE (17:05)
[2019-05-03] MEDS: PERCOCET 5/325 PO PRN (17:08)
--- NOTE | 2019-05-03 18:25 | Cat Scan Report ---
CTA CHEST WITH IV CONTRAST INDICATION: Acute onset chest pain with dyspnea. TECHNIQUE: Axial CT images were obtained through the chest after injection of 100 mL IV contrast. 3 plane MIP re constructions were produced. All CT scans at this location are performed using CT dose reduction for ALARA by means of automated exposure control. COMPARISON: None available. FINDINGS: PULMONARY ARTERIES: There is evidence of artifact within the right lower lobe pulmonary artery segmen ts that may represent mixing artifact and are not definitely emboli. No left-sided emboli is identifi ed. AORTA AND ARTERIES: No acute abnormality. MEDIASTINUM: No mass, lymphadenopathy or other significant abnormality. The heart is normal in size w ithout a pericardial effusion. The trachea and main bronchi are patent and normal in caliber. LUNGS: Large right pleural effusion. Patchy consolidation of the right lower lobe which may be partia lly secondary to compressive atelectasis but may also represent pneumonia. ADDITIONAL FINDINGS: None. UPPER ABDOMEN: The liver appears enlarged but is only partially visualized. BONES: No significant osseous abnormality. IMPRESSION: 1. No definite CT evidence for pulmonary embolism. Please see above comments 2. Large right pleural effusion. 3. Cardiomegaly with evidence of right heart failure/hepatomegaly. 4. Right lower lobe pneumonia. Signer Name: Tc Newell MD Signed: 05/03/2019 6:20 PM Workstation Name: [id number]
[2019-05-03] MEDS ORDERED: TORSEMIDE PO SCH (22:00)
[2019-05-03] MEDS ORDERED: COREG ONE (22:46)
[2019-05-03] MEDS: COREG PO SCH (22:47)
[2019-05-03] MEDS ORDERED: MUCINEX ER PO ONE (22:47)
[2019-05-03] MEDS: MUCINEX ER PO SCH (22:48)
[2019-05-03] MEDS: SODIUM CHLORIDE FLUSH SYRINGE 10 ML IV SCH (22:49)
[2019-05-03] MEDS: ELIQUIS PO SCH (23:48)
[2019-05-03] MEDS: DEMADEX PO SCH (23:48)
[2019-05-04] MEDS: APRESOLINE PO SCH ×3 (06:12→22:12)
[2019-05-04] MEDS ORDERED: BABY ASPIRIN ONE (09:30)
[2019-05-04] MEDS ORDERED: COREG ONE (09:30)
[2019-05-04] MEDS ORDERED: DELTASONE ONE (09:30)
[2019-05-04] MEDS ORDERED: MUCINEX ER PO ONE (09:30)
[2019-05-04] MEDS ORDERED: COLCHICINE ONE (09:31)
[2019-05-04] MEDS: PERCOCET 5/325 PO PRN ×2 (09:33→22:23)
[2019-05-04] MEDS ORDERED: PERCOCET 5/325 ONE (09:34)
[2019-05-04] MEDS ORDERED: ZESTRIL PO SCH (10:00)
[2019-05-04] MEDS ORDERED: LOVENOX SUB-Q SCH (10:00)
[2019-05-04] MEDS: HABITROL TD SCH (10:18)
[2019-05-04] MEDS: DELTASONE PO SCH (10:19)
[2019-05-04] MEDS: DEMADEX PO SCH ×2 (10:19→22:11)
[2019-05-04] MEDS: COREG PO SCH ×2 (10:19→22:11)
[2019-05-04] MEDS: ELIQUIS PO SCH ×2 (10:19→22:11)
[2019-05-04] MEDS: BABY ASPIRIN PO SCH (10:19)
[2019-05-04] MEDS: MUCINEX ER PO SCH ×2 (10:19→22:11)
[2019-05-04] MEDS: ALDACTONE PO SCH (10:19)
[2019-05-04] MEDS: COLCHICINE PO SCH (10:19)
[2019-05-04] MEDS: SODIUM CHLORIDE FLUSH SYRINGE 10 ML IV SCH ×2 (10:19→22:13)
--- NOTE | 2019-05-04 11:23 | Progress Note ---
Assessment and Plan Assessment and plan: 53 YO Male with HTN, CVA with LHP, [place], CHF, DM complicated by Neuropathy, Asthma, COPD, Atrial Fib on Therapeutic Anticoagulation, Chronic Respiratory Failure on Home Oxygen 2L via [place] presents to ED for evaluation. Pt states that he experienced sudden onset of pain in his chest that began around 1000 hrs. Pt states that pain is 5/10, constant, nonradiating, substernal, crushing in nature, worsened with exertion. Pt also acknowledges chest pain with deep breathing, chest palpitations, as well as shortness of breath. Pt also acknowledges decreased exercise tolerance. EMS notified, and upon arrival the patient found to be in distress, and transported to [facility]. Pt seen and evaluated in ED and found to have Atrial Fib with RVR, as well as symptoms consistent with CHF Decompensation, as well as Acute on Chronic Respiratory Failure. Pt initiated on Cardizem drip, and admitted to IM. Pt denies fever, chills, NVD, productive cough, skin rash, unintentional weight loss, night sweats, or recent ill contacts. Prior admission on 03/18/19 reviewed. All medication listed at time of admission has been reconciled. - Patient Problems (1) CHF (congestive heart failure) Current Visit: Yes Status: Acute Qualifiers: Heart failure chronicity: acute on chronic Plan to address problem: We'll downgrade patient to telemetry, Cardiology consulted, supplemental oxygen, pulse oximetry, bnp, d dimer, chest x ray, strict I/O, daily weight, diuresis, blood pressure control, (2) Atrial fibrillation with rapid ventricular response Current Visit: Yes Status: Acute Plan to address problem: Restart home medications therapeutic anticoagulation, cardiology consulted in ED. (3) Acute and chronic respiratory failure Current Visit: Yes Status: Acute Qualifiers: Respiratory failure complication: hypoxia Qualified Code(s): J96.21 - Acute and chronic respiratory failure with hypoxia Plan to address problem: Supplemental oxygen, nebulizer therapy, NIPPV as clinically indicated, chest x ray, CTA chest to evaluate for PE, d dimer, (4) HTN (hypertension) Current Visit: Yes Status: Acute Qualifiers: Hypertension type: essential hypertension Qualified Code(s): I10 - Essential (primary) hypertension Plan to address problem: Monitor BP q shift, continue medical management. (5) Diabetes Current Visit: Yes Status: Acute Plan to address problem: ADA diet, insulin, accu check, hypoglycemia protocol (6) COPD (chronic obstructive pulmonary disease) Current Visit: Yes Status: Acute Qualifiers: Chronic bronchitis type: mixed simple and mucopurulent Plan to address problem: supplemental oxygen,nebulizer therapy, NIPPV as clinically indicated, pulse oximetry (7) bilateral knee pain Obtain bilateral x-rays outpatient orthopedic surgeon recommended (8)DVT prophylaxis Current Visit: Yes Status: Acute Plan to address problem: SCD to BLE while in bed, therapeutic anticoagulation History Interval history: Patient seen and examined, lethargic, but off the BIPAP, still with mild respi ratory distress but reports remarkable improvement. He states that he was recently discharged from [place], and sustained a fall at home due to bilateral knee pain. Hospitalist Physical - Physical exam Narrative exam: VITAL SIGNS: Reviewed. GENERAL: The patient appears normally developed, chronically ill-appearing Vital signs as documented. HEAD: No signs of head trauma. EYES: Pupils are equal. Extraocular motions intact. EARS: Hearing grossly intact. MOUTH: Oropharynx is normal. NECK: No adenopathy, no JVD. CHEST: Chest with fine rales breath sounds bilaterally. No wheezes, or rhonchi. CARDIAC: Regular rate and rhythm. S1 and S2, without murmurs, gallops, or rubs. VASCULAR: No Edema. Peripheral pulses normal and equal in all extremities. ABDOMEN: Soft, non tender and non distended. No rebound or guarding, and no masses palpated. Bowel Sounds normal. MUSCULOSKELETAL: Tender bilateral knees Good range of motion of all major joints. Extremities without clubbing, cyanosis or edema. NEUROLOGIC EXAM: Alert and oriented x 3 No focal sensory or strength deficits. Speech normal. Follows commands. PSYCHIATRIC: Mood normal. SKIN: detail exam as documented in skin assessment - Constitutional Vitals: Temp Pulse Resp BP Pulse Ox 98.2 F 77 18 118/94 95 05/03/19 19:05 05/04/19 10:39 05/04/19 10:39 05/04/19 10:39 05/04/19 10:39 General appearance: Present: mild distress Results - Labs CBC & Chem 7: 05/05/19 04:19 05/05/19 04:19 Labs: Laboratory Last Values WBC 7.1 K/mm3 (4.5-11.0) 05/03/19 11:46 RBC 4.08 M/mm3 (3.65-5.03) 05/03/19 11:46 Hgb 12.0 gm/dl (11.8-15.2) 05/03/19 11:46 Hct 36.1 % (35.5-45.6) 05/03/19 11:46 MCV 89 fl (84-94) 05/03/19 11:46 MCH 29 pg (28-32) 05/03/19 11:46 MCHC 33 % (32-34) 05/03/19 11:46 RDW 19.5 % (13.2-15.2) H 05/03/19 11:46 Plt Count 181 K/mm3 (140-440) 05/03/19 11:46 Lymph % (Auto) 12.2 % (13.4-35.0) L 05/03/19 11:46 [place] % (Auto) 10.3 % (0.0-7.3) H 05/03/19 11:46 Eos % (Auto) 0.8 % (0.0-4.3) 05/03/19 11:46 Baso % (Auto) 1.1 % (0.0-1.8) 05/03/19 11:46 Lymph # 0.9 K/mm3 (1.2-5.4) L 05/03/19 11:46 [place] # 0.7 K/mm3 (0.0-0.8) 05/03/19 11:46 Eos # 0.1 K/mm3 (0.0-0.4) 05/03/19 11:46 Baso # 0.1 K/mm3 (0.0-0.1) 05/03/19 11:46 Seg Neutrophils % 75.6 % (40.0-70.0) H 05/03/19 11:46 Seg Neutrophils # 5.3 K/mm3 (1.8-7.7) 05/03/19 11:46 PT 14.9 Sec. (12.2-14.9) 05/03/19 11:46 INR 1.20 (0.87-1.13) H 05/03/19 11:46 APTT 30.4 Sec. (24.2-36.6) 05/03/19 11:46 1636.97 ng/mlDDU (0-234) H 05/03/19 13:03 Sodium 141 mmol/L (137-145) 05/03/19 11:46 Potassium 4.5 mmol/L (3.6-5.0) 05/03/19 11:46 Chloride 103.8 mmol/L (98-107) 05/03/19 11:46 Carbon Dioxide 18 mmol/L (22-30) L 05/03/19 11:46 24 mmol/L 05/03/19 11:46 BUN 27 mg/dL (9-20) H 05/03/19 11:46 1.4 mg/dL (0.8-1.5) 05/03/19 11:46 Estimated GFR > 60 ml/min 05/03/19 11:46 19 % 05/03/19 11:46 Glucose 71 mg/dL (75-100) L 05/03/19 11:46 POC Glucose 88 (70-105) 05/04/19 07:34 Calcium 9.6 mg/dL (8.4-10.2) 05/03/19 11:46 Magnesium 2.20 mg/dL (1.7-2.3) 05/03/19 11:46 38 units/L (55-170) L 05/03/19 11:46 CK-MB (CK-2) 3.5 ng/mL (0.0-4.0) 05/03/19 11:46 CK-MB (CK-2) Rel Index 9.2 (0-4) H 05/03/19 11:46 < 0.010 ng/mL (0.00-0.029) 05/03/19 11:46 NT-Pro-B Natriuret Pep 02685 pg/mL (0-900) H 05/03/19 13:03 TSH 4.060 mlU/mL (0.270-4.200) 05/03/19 13:03 Free T4 1.43 ng/dL (0.76-1.46) 05/03/19 13:03 Active Medications - Current Medications Current Medications: Generic Name Dose Route Start Last Admin Trade Name Freq PRN Reason Stop Dose Admin Apixaban 5 mg 05/03/19 22:00 05/04/19 10:19 Eliquis PO 5 mg BID SOUMYA Administration Protocol Aspirin 81 mg 05/04/19 10:00 05/04/19 10:19 Baby Aspirin PO 81 mg QDAY SOUMYA Administration Atorvastatin Calcium 40 mg 05/03/19 22:00 05/03/19 22:48 Lipitor PO 40 mg QHS SOUMYA Administration Carvedilol 6.25 mg 05/03/19 22:00 05/04/19 10:19 Coreg PO 6.25 mg BID SOUMYA Administration Colchicine 0.6 mg 05/04/19 10:00 05/04/19 10:19 Colchicine PO 0.6 mg QDAY SOUMYA Administration Guaifenesin 600 mg 05/03/19 22:00 05/04/19 10:19 Mucinex Er PO 600 mg BID SOUMYA Administration Hydralazine HCl 100 mg 05/03/19 14:00 05/04/19 06:12 Apresoline PO Not Given Q8HR SOUMYA Diltiazem HCl 100 mg in 100 mls @ 5 mls/hr 05/03/19 12:00 05/03/19 12:00 Cardizem/D5w 100mg/100ml IV 5 mg/hr TITR SOUMYA 5 mls/hr Administration Protocol 5 MG/HR Lisinopril 5 mg 05/04/19 10:00 05/04/19 10:18 Zestril PO Not Given DAILY SOUMYA Nicotine 14 mg 05/04/19 10:00 05/04/19 10:18 Habitrol TD Not Given QDAY [facility] Oxycodone/Acetaminophen 1 tab 05/03/19 13:49 05/04/19 09:33 Percocet 5/325 PO 1 tab BID PRN Administration Pain, Moderate (4-6) Prednisone 20 mg 05/04/19 10:00 05/04/19 10:19 Deltasone PO 20 mg QDAY SOUMYA Administration Sodium Chloride 10 ml 05/03/19 22:00 05/04/19 10:19 Sodium Chloride Flush Syringe 10 Ml IV 10 ml BID SOUMYA Administration Sodium Chloride 10 ml 05/03/19 13:47 Sodium Chloride Flush Syringe 10 Ml IV PRN PRN LINE FLUSH Spironolactone 25 mg 05/04/19 10:00 05/04/19 10:19 Aldactone PO 25 mg QDAY SOUMYA Administration Torsemide 40 mg 05/03/19 22:00 05/04/19 10:19 Demadex PO 40 mg BID SOUMYA Administration
--- NOTE | 2019-05-04 12:36 | Consultation ---
History of Present Illness Consult date: 05/04/19 Consult reason: atrial fibrillation History of present illness: Patient is a 53-year old male who presents to the emergency department with palpitations, admitted with rapid atrial fibrillation. Patient has a history of chronic atrial fibrillation and nonischemic cardiomyopathy with ejection fraction 15-20%. He has an indwelling cardiac defibrillator. Patient is on chronic oral anticoagulation therapy with Eliquis. His latest echocardiogram, done 5 months ago, showed a decreased left ventricular systolic function, ejection fraction 15-20% Patient denies AICD discharge. Chest x-ray reports right pleural effusion. A cardiac consultation has been requested for rate control of his chronic atrial fibrillation. Past History Past Medical History: atrial fib, COPD, diabetes, heart failure, hypertension, stroke, other (chronic Respiratory Failure) Past Surgical History: Other (ICD placement) Social history: single. denies: smoking, alcohol abuse, prescription drug abuse Family history: diabetes, hypertension Medications and Allergies Allergies Allergy/AdvReac Type Severity Reaction Status Date / Time Penicillins Allergy Itching Verified 03/05/19 22:41 strawberry Allergy Hives Verified 03/05/19 22:41 Home Medications Medication Instructions Recorded Confirmed Last Taken Type Apixaban [Eliquis] 1 tab PO BID #60 tablet 03/14/19 05/03/19 Unknown Rx Apixaban [Eliquis] 5 mg PO Q12HR tablet 03/14/19 05/03/19 Unknown Rx Aspirin [Aspirin BABY CHEW TAB] 81 mg PO QDAY #30 tab.chew 03/14/19 05/03/19 Unknown Rx AtorvaSTATin [Lipitor] 40 mg PO QHS #30 tablet 03/14/19 05/03/19 Unknown Rx Carvedilol [Coreg] 6.25 mg PO BID #60 tablet 03/14/19 05/03/19 Unknown Rx Lisinopril [Zestril TAB] 1 tab PO DAILY #30 tablet 03/14/19 05/03/19 Unknown Rx Torsemide [Demadex] 2 tab PO BID #60 tablet 03/14/19 05/03/19 Unknown Rx guaiFENesin ER [Mucinex ER] 600 mg PO BID #60 tablet 03/14/19 05/03/19 Unknown Rx hydrALAZINE [Apresoline TAB] 1 tab PO Q8HR #90 tab 03/14/19 05/03/19 Unknown Rx oxyCODONE /ACETAMINOPHEN [Percocet 1 tab PO Q4H PRN #10 tablet 03/14/19 05/03/19 Unknown Rx 5/325 mg] Colchicine 0.6 mg PO QDAY #10 capsule 03/21/19 05/03/19 Unknown Rx Nicotine [Habitrol] 14 mg TD QDAY #30 patch 03/21/19 05/03/19 Unknown Rx Spironolactone [Aldactone] 25 mg PO QDAY #30 tablet 03/21/19 05/03/19 Unknown Rx oxyCODONE /ACETAMINOPHEN [Percocet 1 tab PO BID PRN #6 tablet 03/21/19 05/03/19 Unknown Rx 5/325 mg] predniSONE [Deltasone] 20 mg PO QDAY #7 tablet 03/21/19 05/03/19 Unknown Rx Active Meds: Active Medications Apixaban (Eliquis) 5 mg PO BID [facility]; Protocol Last Admin: 05/04/19 10:19 Dose: 5 mg Documented by: Aspirin (Baby Aspirin) 81 mg PO QDAY [facility] Last Admin: 05/04/19 10:19 Dose: 81 mg Documented by: Atorvastatin Calcium (Lipitor) 40 mg PO QHS [facility] Last Admin: 05/03/19 22:48 Dose: 40 mg Documented by: Carvedilol (Coreg) 6.25 mg PO BID [facility] Last Admin: 05/04/19 10:19 Dose: 6.25 mg Documented by: Colchicine (Colchicine) 0.6 mg PO QDAY [facility] Last Admin: 05/04/19 10:19 Dose: 0.6 mg Documented by: Guaifenesin (Mucinex Er) 600 mg PO BID [facility] Last Admin: 05/04/19 10:19 Dose: 600 mg Documented by: Hydralazine HCl (Apresoline) 100 mg PO Q8HR [facility] Last Admin: 05/04/19 06:12 Dose: Not Given Documented by: Diltiazem HCl (Cardizem/D5w 100mg/100ml) 100 mg in 100 mls @ 5 mls/hr IV TITR [facility]; Protocol Last Admin: 05/03/19 12:00 Dose: 5 mg/hr, 5 mls/hr Documented by: Lisinopril (Zestril) 5 mg PO DAILY [facility] Last Admin: 05/04/19 10:18 Dose: Not Given Documented by: Nicotine (Habitrol) 14 mg TD QDAY [facility] Last Admin: 05/04/19 10:18 Dose: Not Given Documented by: Oxycodone/Acetaminophen (Percocet 5/325) 1 tab PO BID PRN PRN Reason: Pain, Moderate (4-6) Last Admin: 05/04/19 09:33 Dose: 1 tab Documented by: Prednisone (Deltasone) 20 mg PO QDAY [facility] Last Admin: 05/04/19 10:19 Dose: 20 mg Documented by: Sodium Chloride (Sodium Chloride Flush Syringe 10 Ml) 10 ml IV BID [facility] Last Admin: 05/04/19 10:19 Dose: 10 ml Documented by: Sodium Chloride (Sodium Chloride Flush Syringe 10 Ml) 10 ml IV PRN PRN PRN Reason: LINE FLUSH Spironolactone (Aldactone) 25 mg PO QDAY [facility] Last Admin: 05/04/19 10:19 Dose: 25 mg Documented by: Torsemide (Demadex) 40 mg PO BID [facility] Last Admin: 05/04/19 10:19 Dose: 40 mg Documented by: Physical Examination Vital Signs Temp Pulse Resp BP Pulse Ox 98.5 F 135 H 18 142/63 100 05/03/19 11:00 05/03/19 11:00 05/03/19 11:00 05/03/19 11:00 05/03/19 11:00 General appearance: no acute distress HEENT: Positive: PERRL Neck: Positive: trachea midline Cardiac: Positive: irregularly irregular Lungs: Positive: Decreased Breath Sounds Results 05/03/19 11:46 05/03/19 11:46 Cardiac Enzymes 05/03/19 Range/Units 11:46 CK-MB (CK-2) 3.5 (0.0-4.0) ng/mL Comprehensive Metabolic Panel 05/03/19 Range/Units 11:46 Sodium 141 (137-145) mmol/L Potassium 4.5 (3.6-5.0) mmol/L Chloride 103.8 (98-107) mmol/L Carbon Dioxide 18 L (22-30) mmol/L BUN 27 H (9-20) mg/dL Creatinine 1.4 (0.8-1.5) mg/dL Glucose 71 L (75-100) mg/dL Calcium 9.6 (8.4-10.2) mg/dL Assessment and Plan Chronic atrial fibrillation anticoagualted with eliquis Hx of Nonischemic cardiomyopathy EF 15-20% by echo 11/2018 Presence of AICD Hypertension Type 2 diabetes mellitus Chronic obstructive pulmonary disease
--- NOTE | 2019-05-04 12:41 | XRay Report ---
CHEST 1 VIEW 12:07 PM INDICATION / CLINICAL INFORMATION: Chest pain. COMPARISON: 03/18/2019. FINDINGS: SUPPORT DEVICES: The position of the single lead left subclavian ICD has not changed. HEART / MEDIASTINUM: There is mild cardiomegaly and prominence of the central pulmonary vessels. LUNGS / PLEURA: There is mild diffuse interstitial lung disease. Moderate pleuroparenchymal opacity i n the right mid to lower hemithorax has increased. A portion of the left lower chest has been exclude d from the [id number]. No pneumothorax. ADDITIONAL FINDINGS: No significant additional findings. IMPRESSION: 1. Mild congestive heart failure. 2. Pleuroparenchymal opacity in the right mid to lower lung has increased and may be related to asymm etric edema and effusion or could be related to superimposed pneumonia or aspiration. Signer Name: Memo Giraldo MD Signed: 05/04/2019 12:37 PM Workstation Name: [id number]
[2019-05-04] MEDS: LANOXIN IV SCH ×2 (14:46→21:13)
[2019-05-05] MEDS: PERCOCET 5/325 PO PRN ×3 (03:10→14:05)
[2019-05-05] MEDS: APRESOLINE PO SCH (05:42)
[2019-05-05 05:53] LABS: Hematocrit 33.6 % (35.5-45.6); Hemoglobin 11.1 gm/dl (11.8-15.2); Mean Corpuscular HGB Conc 33 % (32-34); Mean Corpuscular Volume 89 fl (84-94); Platelet Count 176 K/mm3 (140-440); Red Blood Count 3.77 M/mm3 (3.65-5.03); Red Cell Distribution Width 19.6 % (13.2-15.2)
[2019-05-05 06:16] LABS: Calcium 8.9 mg/dL (8.4-10.2)
[2019-05-05] MEDS: COLCHICINE PO SCH (09:40)
[2019-05-05] MEDS: MUCINEX ER PO SCH (09:40)
[2019-05-05] MEDS: ELIQUIS PO SCH (09:41)
[2019-05-05] MEDS: DEMADEX PO SCH (09:41)
[2019-05-05] MEDS: COREG PO SCH (09:41)
[2019-05-05] MEDS: BABY ASPIRIN PO SCH (09:41)
[2019-05-05] MEDS: DELTASONE PO SCH (09:42)
[2019-05-05] MEDS: SODIUM CHLORIDE FLUSH SYRINGE 10 ML IV SCH (09:43)
[2019-05-05] MEDS: ALDACTONE PO SCH (09:44)
--- NOTE | 2019-05-05 10:00 | XRay Report ---
BILATERAL KNEES, 2 VIEWS INDICATION: Bilateral knee pain. COMPARISON: None. IMPRESSION: Bone mineralization is borderline. No acute osseous findings or bone lesion. There is m ild retropatellar spurring in the right knee. The medial and lateral compartments of the right knee a re unremarkable. The left knee joint space is within normal limits. Moderate bilateral joint effusion s are noted on the lateral image. Signer Name: Tenzin Vallejo Jr, MD Signed: 05/05/2019 9:56 AM Workstation Name: [id number]
--- NOTE | 2019-05-05 10:28 | Progress Note ---
<JEANA HOLM - Last Filed: 05/05/19 10:24> Assessment and Plan Chronic atrial fibrillation anticoagualted with eliquis Acute renal failure Hx of Nonischemic cardiomyopathy EF 15-20% by echo 11/2018 Presence of AICD Hypertension Type 2 diabetes mellitus Chronic obstructive pulmonary disease Recommendations: Sodium/fluid restriction. Continue carvedilol and digoxin for optimal rate control of his chronic atrial fibrillation. We will hold torsemide and lisinopril secondary to acute renal failure. Subjective Date of service: 05/05/19 Interval history: Afib with a well controlled ventricular rate on telemetry. Noted a rise in creatinine on morning labs. Objective Vital Signs Temp Pulse Pulse Resp Resp BP BP 05/05/19 09:44 70 126/92 05/05/19 09:41 70 126/92 05/05/19 08:32 98.4 F 70 18 126/92 05/05/19 04:11 98.1 F 72 18 102/81 05/05/19 04:10 18 05/05/19 03:10 18 05/05/19 02:10 56 L 18 121/73 05/04/19 23:44 98.1 F 56 L 18 121/73 05/04/19 23:33 98.4 F 71 18 127/87 05/04/19 23:23 18 05/04/19 22:32 18 05/04/19 22:23 18 05/04/19 22:11 76 117/75 05/04/19 22:10 117/75 05/04/19 22:05 82 18 05/04/19 21:13 82 122/81 05/04/19 19:57 98.0 F 82 17 122/81 05/04/19 19:27 86 05/04/19 16:01 98.2 F 70 18 107/77 05/04/19 13:29 98.3 F 77 18 99/79 05/04/19 10:50 78 24 109/76 05/04/19 10:40 86 24 118/84 05/04/19 10:39 77 18 118/94 05/04/19 10:33 18 05/04/19 10:30 78 13 118/84 Pulse Ox 05/05/19 09:44 05/05/19 09:41 05/05/19 08:32 95 09/04/19 04:11 97 05/05/19 04:10 05/05/19 03:10 05/05/19 02:10 98 05/04/19 23:44 93 05/04/19 23:33 99 05/04/19 23:23 05/04/19 22:32 05/04/19 22:23 05/04/19 22:11 05/04/19 22:10 05/04/19 22:05 95 05/04/19 21:13 05/04/19 19:57 95 05/04/19 19:27 05/04/19 16:01 95 05/04/19 13:29 93 05/04/19 10:50 96 05/04/19 10:40 95 05/04/19 10:39 95 05/04/19 10:33 05/04/19 10:30 94 - Physical Examination General: No Apparent Distress HEENT: Positive: PERRL Neck: Positive: trachea midline Cardiac: Positive: irregularly irregular Lungs: Positive: Decreased Breath Sounds Neuro: Positive: Grossly Intact Extremities: Absent: edema - Labs and Meds CBC 05/05/19 Range/Units 04:19 WBC 6.1 (4.5-11.0) K/mm3 RBC 3.77 (3.65-5.03) M/mm3 Hgb 11.1 L (11.8-15.2) gm/dl Hct 33.6 L (35.5-45.6) % Plt Count 176 (140-440) K/mm3 Comprehensive Metabolic Panel 05/05/19 Range/Units 04:19 Sodium 137 (137-145) mmol/L Potassium 4.6 (3.6-5.0) mmol/L Chloride 100.5 (98-107) mmol/L Carbon Dioxide 21 L (22-30) mmol/L BUN 34 H (9-20) mg/dL Creatinine 1.7 H (0.8-1.5) mg/dL Glucose 87 (75-100) mg/dL Calcium 8.9 (8.4-10.2) mg/dL <POLLY ESPINOZA - Last Filed: 05/06/19 22:16> Assessment and Plan I have seen and evaluated the patient and agree with the assessment and plan. Continue goal directed therapy for treatment of severe non-ischemic cardiomyopathy. Rate control strategy for treatment of atrial fibrillation. Eliquis for anticoagulation.
[2019-05-05] MEDS: HABITROL TD SCH (10:30)
--- NOTE | 2019-05-05 10:49 | Consultation ---
History of Present Illness - Reason for Consult Consult date: 05/05/19 acute renal failure, chronic renal failure - History of Present Illness Mr. Coleman is a 53yo gentleman with history of atrial fibrillation and congestive heart failure who presented to the ED with dizziness/lightheadedness upon standing. He reports CARTER, leg swelling and joint pain related to gout. However, per H&P, patient reported sudden onset of chest pain - 5/10, constant, nonradiating, substernal, crushing in nature, worsened with exertion. Mr. Coleman reports that he was recently discharged from [place] following hospitalization for heart failure. Patient relocated from [facility] 1 year ago but has not established care with a PCP or online merchandising specialist. Past History Past Medical History: atrial fib, COPD, diabetes, heart failure, hypertension, stroke, other (chronic Respiratory Failure) Past Surgical History: Other (ICD placement) Social history: single. denies: smoking, alcohol abuse, prescription drug abuse Family history: diabetes, hypertension Medications and Allergies Allergies Allergy/AdvReac Type Severity Reaction Status Date / Time Penicillins Allergy Itching Verified 03/05/19 22:41 strawberry Allergy Hives Verified 03/05/19 22:41 Home Medications Medication Instructions Recorded Confirmed Last Taken Type Apixaban [Eliquis] 1 tab PO BID #60 tablet 03/14/19 05/03/19 Unknown Rx Apixaban [Eliquis] 5 mg PO Q12HR tablet 03/14/19 05/03/19 Unknown Rx Aspirin [Aspirin BABY CHEW TAB] 81 mg PO QDAY #30 tab.chew 03/14/19 05/03/19 Unknown Rx AtorvaSTATin [Lipitor] 40 mg PO QHS #30 tablet 03/14/19 05/03/19 Unknown Rx guaiFENesin ER [Mucinex ER] 600 mg PO BID #60 tablet 03/14/19 05/03/19 Unknown Rx oxyCODONE /ACETAMINOPHEN [Percocet 1 tab PO Q4H PRN #10 tablet 03/14/19 05/03/19 Unknown Rx 5/325 mg] Colchicine 0.6 mg PO QDAY #10 capsule 03/21/19 05/03/19 Unknown Rx Nicotine [Habitrol] 14 mg TD QDAY #30 patch 03/21/19 05/03/19 Unknown Rx Spironolactone [Aldactone] 25 mg PO QDAY #30 tablet 03/21/19 05/03/19 Unknown Rx oxyCODONE /ACETAMINOPHEN [Percocet 1 tab PO BID PRN #6 tablet 03/21/19 05/03/19 Unknown Rx 5/325 mg] predniSONE [Deltasone] 20 mg PO QDAY #7 tablet 03/21/19 05/03/19 Unknown Rx Carvedilol [Coreg] 12.5 mg PO BID #60 tablet 05/05/19 Unknown Rx Digoxin [Lanoxin] 0.25 mg PO DAILY@1700 #30 tablet 05/05/19 Unknown Rx Torsemide [Demadex] 2 tab PO DAILY #60 tablet 05/05/19 05/03/19 Unknown Rx Active Meds: Active Medications Apixaban (Eliquis) 5 mg PO BID [facility]; Protocol Last Admin: 05/05/19 09:41 Dose: 5 mg Documented by: Aspirin (Baby Aspirin) 81 mg PO QDAY [facility] Last Admin: 05/05/19 09:41 Dose: 81 mg Documented by: Atorvastatin Calcium (Lipitor) 40 mg PO QHS [facility] Last Admin: 05/04/19 22:11 Dose: 40 mg Documented by: Carvedilol (Coreg) 12.5 mg PO BID [facility] Last Admin: 05/05/19 09:41 Dose: 12.5 mg Documented by: Colchicine (Colchicine) 0.6 mg PO QDAY [facility] Last Admin: 05/05/19 09:40 Dose: 0.6 mg Documented by: Digoxin (Lanoxin) 0.25 mg PO DAILY@1700 [facility] Guaifenesin (Mucinex Er) 600 mg PO BID [facility] Last Admin: 05/05/19 09:40 Dose: 600 mg Documented by: Hydralazine HCl (Apresoline) 100 mg PO Q8HR [facility] Last Admin: 05/05/19 05:42 Dose: Not Given Documented by: Nicotine (Habitrol) 14 mg TD QDAY [facility] Last Admin: 05/04/19 10:18 Dose: Not Given Documented by: Oxycodone/Acetaminophen (Percocet 5/325) 1 tab PO Q4H PRN PRN Reason: Pain, Moderate (4-6) Last Admin: 05/05/19 08:26 Dose: 1 tab Documented by: Prednisone (Deltasone) 20 mg PO QDAY [facility] Last Admin: 05/05/19 09:42 Dose: 20 mg Documented by: Sodium Chloride (Sodium Chloride Flush Syringe 10 Ml) 10 ml IV BID [facility] Last Admin: 05/05/19 09:43 Dose: 10 ml Documented by: Sodium Chloride (Sodium Chloride Flush Syringe 10 Ml) 10 ml IV PRN PRN PRN Reason: LINE FLUSH Spironolactone (Aldactone) 25 mg PO QDAY [facility] Last Admin: 05/05/19 09:44 Dose: 25 mg Documented by: Review of Systems All systems: negative Exam - Vital Signs Vital signs: Vital Signs Temp Pulse Resp BP Pulse Ox 98.5 F 135 H 18 142/63 100 05/03/19 11:00 05/03/19 11:00 05/03/19 11:00 05/03/19 11:00 05/03/19 11:00 - General Appearance General appearance: well-developed, well-nourished EENT: ATNC Respiratory: Decreased Breath Sounds Heart: irregular Gastrointestinal: Present: normal. Absent: tenderness, distended Integumentary: no rash, warm and dry Neurologic: alert and oriented x3 Musculoskeletal: Present: other (1+ edema) Psychiatric: cooperative Results - Lab Results 05/05/19 04:19 05/05/19 04:19 Most recent lab results Calcium 8.9 mg/dL (8.4-10.2) 05/05/19 04:19 Magnesium 2.20 mg/dL (1.7-2.3) 05/03/19 11:46 Assessment and Plan Impression: * Stage III chronic kidney disease --Baseline SCr 1.6-1.8mg/dL * Cardiomyopathy * Atrial fibrillation * Acute on chronic systolic heart failure * Chronic hypoxic respiratory failure * Medical noncompliance Plan: * Note increase in SCr. However, renal function is at baseline c/w prior admissions. No indication for renal replacement therapy * Hold Demadex BID and resume daily tomorrow * Rate control and anticoagulation per cardiology * Strict I/O * Add 1L fluid restriction to diet * AM labs * Encouraged need for compliance
--- NOTE | 2019-05-05 13:41 | Discharge Summary ---
Providers - Providers Date of Admission: 05/03/19 13:47 Attending physician: YOKASTA NEWMAN MD 05/03/19 13:48 Consult to Physician [CONS] Routine Comment: Consulting Provider: NURY ACEVEDO Physician Instructions: Reason For Exam: atrial fib 05/05/19 08:53 Consult to Physician [CONS] Routine Comment: Consulting Provider: PERNELL LUGO Physician Instructions: Reason For Exam: estevan 05/05/19 08:55 Physical Therapy Evaluation and Treat [CONS] Routine Comment: Reason For Exam: ataxia with fall Primary care physician: SHOP MECHANIC Hospitalization Reason for admission: shortness of breath Condition: Stable Hospital course: 53 YO Male with HTN, CVA with LHP, MA, CHF, DM complicated by Neuropathy, Asthma, COPD, Atrial Fib on Therapeutic Anticoagulation, Chronic Respiratory Failure on Home Oxygen 2L via NC presents to ED for evaluation. Pt states that he experienced sudden onset of pain in his chest that began around 1000 hrs. Pt states that pain is 5/10, constant, nonradiating, substernal, crushing in nature, worsened with exertion. Pt also acknowledges chest pain with deep breathing, chest palpitations, as well as shortness of breath. Pt also acknowledges decreased exercise tolerance. EMS notified, and upon arrival the patient found to be in distress, and transported to [facility]. Pt seen and evaluated in ED and found to have Atrial Fib with RVR, as well as symptoms consistent with CHF Decompensation, as well as Acute on Chronic Respiratory Failure. Pt initiated on Cardizem drip, and admitted to IMCU. Pt denies fever, chills, NVD, productive cough, skin rash, unintentional weight loss, night sweats, or recent ill contacts. Prior admission on 03/18/19 reviewed. All medication listed at time of admission has been reconciled. * Patient was evaluated by cardiology over the phone recommendation * We will enhance AV john blockade, increase carvedilol and add digoxin. * No further cardiac workup, patient will be discharged home once rate control is optimized. * Patient was also seen by nephrology following extensive discussion and was identified by the patient is noncompliance with salt and fluid intake. Extensive counseling was provided. Advised the patient can restart Demadex but at one dose daily. Patient was also instructed on need to follow-up with primary care physician and appropriate specialists including nephrology soccer referee. * He was evaluated by physical therapy and no needs were identified. * Imaging studies [facility] for bilateral joint effusion recommended since multiple outpatient follow-up with orthopedic surgeon. * Patient has Right sided pleural effusions and will have set up for outpatient thoracenteis CT IMPRESSION: 1. No definite CT evidence for pulmonary embolism. Please see above comments 2. Large right pleural effusion. 3. Cardiomegaly with evidence of right heart failure/hepatomegaly. 4. Right lower lobe pneumonia. Chest xray: IMPRESSION: 1. Mild congestive heart failure. 2. Pleuroparenchymal opacity in the right mid to lower lung has increased and may be related to asymmetric edema and effusion or could be related to superimposed pneumonia or aspiration. Discharge diagnosis (1) CHF (congestive heart failure): acute on chronic (2) Atrial fibrillation with rapid ventricular response (3) Acute and chronic respiratory failure (4) HTN (hypertension) (5) Diabetes (6) COPD (chronic obstructive pulmonary disease) (7) bilateral knee pain (8) Right sided pleural effusion (9) ESTEVAN secondary to vasomotor nephropathy on CKD stage 3 (10) Hx of Nonischemic cardiomyopathy EF 15-20% by echo 11/2018 11. Presence of AICD Disposition: DC-01 TO HOME OR SELFCARE Time spent for discharge: 35 mins Core Measure Documentation - Palliative Care Palliative Care/ Comfort Measures: Not Applicable - Core Measures Any of the following diagnoses?: heart failure - Heart Failure Discharge Requirements INES/ARB for LVSD if EF <40%: No Reason for no INES/ARB: Renal impairment Beta nathaniel at discharge: Yes Exam - Physical Exam Narrative exam: VITAL SIGNS: Reviewed. GENERAL: The patient appears normally developed, chronically ill-appearing Vital signs as documented. HEAD: No signs of head trauma. EYES: Pupils are equal. Extraocular motions intact. EARS: Hearing grossly intact. MOUTH: Oropharynx is normal. NECK: No adenopathy, no JVD. CHEST: Chest with fine rales breath sounds bilaterally. No wheezes, or rhonchi. CARDIAC: Regular rate and rhythm. S1 and S2, without murmurs, gallops, or rubs. VASCULAR: No Edema. Peripheral pulses normal and equal in all extremities. ABDOMEN: Soft, non tender and non distended. No rebound or guarding, and no masses palpated. Bowel Sounds normal. MUSCULOSKELETAL: Tender bilateral knees Good range of motion of all major joints. Extremities without clubbing, cyanosis or edema. NEUROLOGIC EXAM: Alert and oriented x 3 No focal sensory or strength deficits . Speech normal. Follows commands. PSYCHIATRIC: Mood normal. SKIN: detail exam as documented in skin assessment - Constitutional Vitals: Temp Pulse Resp BP Pulse Ox 98.4 F 67 18 125/76 96 05/05/19 11:38 05/05/19 11:37 05/05/19 11:38 05/05/19 11:37 05/05/19 11:37 Plan Activity: advance as tolerated, fall precautions Diet: low fat Special Instructions: restrict fluid intake to (1200cc/day), record daily weights, record daily BP diary Care Plan Goals: improved breathing and reduced hospitalization Plan of Treatment: continue diuresis outpatient thoracentesis Follow up with: PRIMARY MD JONNY [Primary Care Provider] - 7 Days NURY ACEVEDO MD [Staff Physician] - 7 Days SHANKAR CONNER MD [Staff Physician] - 7 Days CHI GUTIERREZ MD [Staff Physician] - 7 Days NIKA WARE MD [Staff Physician] - 7 Days JAIR HILL MD [Staff Physician] - 7 Days Prescriptions: Carvedilol [Coreg] 12.5 mg PO BID #60 tablet Digoxin [Lanoxin] 0.25 mg PO DAILY@1700 #30 tablet
[2019-05-05] MEDS ORDERED: APRESOLINE PO SCH (15:00)
[2019-05-05 16:59] VITALS: BP 123/96
[2019-05-05] MEDS ORDERED: LANOXIN PO SCH (17:00)
[2019-05-06] MEDS ORDERED: DEMADEX PO SCH (10:00)
== END 2019-05-05 19:35 | disposition home or self-care (01) | DRG 189 ==
LOC: ED 10:52 → IMCU 13:47 → 4A 05-04 09:44
PROVIDERS: ADMIT Internal Medicine; ATTEND Internal Medicine
PROC: 5A09357 Assistance with Respiratory Ventilation, Less than 24 Consecutive Hours, Continuous Positive Airway Pressure (ICD-10-PCS; principal; 2019-05-04)
PROC: 5A09357 Assistance with Respiratory Ventilation, Less than 24 Consecutive Hours, Continuous Positive Airway Pressure (ICD-10-PCS; 2019-05-05)
DX: J96.21 Acute and chronic respiratory failure with hypoxia (principal); I13.0 Hypertensive heart and chronic kidney disease with heart failure and stage 1 through stage 4 chronic kidney disease, or unspecified chronic kidney disease; I50.23 Acute on chronic systolic (congestive) heart failure; N17.0 Acute kidney failure with tubular necrosis; I48.2 Chronic atrial fibrillation; J44.9 Chronic obstructive pulmonary disease, unspecified; I42.8 Other cardiomyopathies; I69.354 Hemiplegia and hemiparesis following cerebral infarction affecting left non-dominant side; I25.2 Old myocardial infarction; E11.22 Type 2 diabetes mellitus with diabetic chronic kidney disease; N18.3 Chronic kidney disease, stage 3 (moderate); E11.40 Type 2 diabetes mellitus with diabetic neuropathy, unspecified; Z87.891 Personal history of nicotine dependence; Z79.82 Long term (current) use of aspirin; Z95.810 Presence of automatic (implantable) cardiac defibrillator; Z79.01 Long term (current) use of anticoagulants; Z91.14 Patient's other noncompliance with medication regimen; Z99.81 Dependence on supplemental oxygen; Z82.49 Family history of ischemic heart disease and other diseases of the circulatory system; Z83.3 Family history of diabetes mellitus; Z88.0 Allergy status to penicillin; Z91.018 Allergy to other foods
CPT/HCPCS: 36415; 71045; 71275; 80048; 82550; 82553; 82962; 83735; 83880; 84439; 84443; 84484; 85025; 85027; 85379; 85610; 85730; 93005; 93010; 94660; G0378; A9270-GY; J1160; J2405; J3010; J7512; Q9967

== ENCOUNTER 2019-07-18 23:07 | Inpatient (IN) | payer MEDICAID ==
[2019-07-18] MEDS ORDERED: HYDROmorphone 1 MG/1 ML INJ IV ONE ×3 (23:29→23:31)
[2019-07-18] MEDS ORDERED: ONDANSETRON 4 MG/2 ML INJ IV ONE (23:29)
[2019-07-18 23:48] LABS: Basophils % (Auto) 0.7 % (0.0-1.8); Eosinophils # (Auto) 0.2 K/mm3 (0.0-0.4); Hematocrit 34.9 % (35.5-45.6); Hemoglobin 11.5 gm/dl (11.8-15.2); Lymphocytes # (Auto) 0.8 K/mm3 (1.2-5.4); Lymphocytes % (Auto) 15.5 % (13.4-35.0); Mean Corpuscular HGB Conc 33 % (32-34); Mean Corpuscular Volume 90 fl (84-94); Monocytes # (Auto) 0.8 K/mm3 (0.0-0.8); Monocytes % (Auto) 14.8 % (0.0-7.3); Platelet Count 151 K/mm3 (140-440); Red Blood Count 3.88 M/mm3 (3.65-5.03); Red Cell Distribution Width 19.4 % (13.2-15.2)
--- NOTE | 2019-07-18 23:57 | Emergency Department Report ---
ED Chest Pain HPI - General Chief Complaint: Chest Pain Stated Complaint: CHEST PAIN Time Seen by Provider: 07/18/19 23:20 Source: patient, old records reviewed Mode of arrival: Ambulatory Limitations: Physical Limitation - History of Present Illness Initial Comments: 54-year-old male with a past medical history asthma, sleep apnea, CHF, COPD, CVA with residual left-sided weakness, A. fib currently on Eliquis, renal insufficiency, rapidly, and defibrillator placement presents to the hospital complaining of left-sided chest pain that started prior to arrival. Pain complains of a intermittent left anterior stabbing pain. Pain is worse with movement, palpation, and inspiration. Patient provided aspirin and nitroglycerin in route without improvement. Patient also having paresthesias to left arm which he has had in the past but worse since fall/syncope episode yesterday. For the last several days patient reports increasing shortness of breath or worsening leg edema. He is compliant with his medications but admits to not taking any of his meds today. Patient also states that yesterday he passed out while walking in his home. He estimates he was unconscious for 4 hours and his granddaughter woke him up on the floor because she screamed when returned home and found him. Syncope was preceded by dizziness. Denies headache or neck pain at this time pt admitted here last month for volume overload. Pt had a large right pleural effusion with thoracentesis performed 06/23 with plan to follow up with Dr. Jenkins agile scrum master as an outpatient as per medical record. Pt states he was not able to f/u as an outpt Severity scale (0 -10): 7 - Related Data Previous Rx's Medication Instructions Recorded Last Taken Type Apixaban [Eliquis] 1 tab PO BID #60 tablet 03/14/19 Unknown Rx Aspirin [Aspirin BABY CHEW TAB] 81 mg PO QDAY #30 tab.chew 03/14/19 Unknown Rx AtorvaSTATin [Lipitor] 40 mg PO QHS #30 tablet 03/14/19 Unknown Rx guaiFENesin ER [Mucinex ER] 600 mg PO BID #60 tablet 03/14/19 Unknown Rx Colchicine 0.6 mg PO QDAY #10 capsule 03/21/19 Unknown Rx Nicotine [Habitrol] 14 mg TD QDAY #30 patch 03/21/19 Unknown Rx predniSONE [Deltasone] 20 mg PO QDAY #7 tablet 03/21/19 Unknown Rx Digoxin [Lanoxin] 0.25 mg PO DAILY@1700 #30 tablet 05/05/19 Unknown Rx Acetaminophen [Acetaminophen TAB] 2 tab PO Q4H PRN #15 tablet 06/25/19 Unknown Rx Metoprolol [Lopressor TAB] 75 mg PO TID #90 tablet 06/25/19 Unknown Rx Oxycodone HCl/Acetaminophen 1 each PO Q6HR PRN #20 tablet 06/25/19 Unknown Rx [Percocet 10/325 mg] Sodium Bicarbonate 1,300 mg PO BID #90 tablet 06/25/19 Unknown Rx Torsemide [Demadex] 100 mg PO DAILY@0600 #30 tablet 06/25/19 Unknown Rx Allergies Allergy/AdvReac Type Severity Reaction Status Date / Time Penicillins Allergy Itching Verified 03/05/19 22:41 strawberry Allergy Hives Verified 03/05/19 22:41 Heart Score - HEART Score History: Slightly suspicious EKG: Non-specific Age: 45-65 Risk factors: > 3 risk factors or hx of atherosclerotic disease Troponin: < normal limit HEART Score: 4 ED Review of Systems ROS: Stated complaint: CHEST PAIN Other details as noted in HPI Comment: All other systems reviewed and negative ED Past Medical Hx - Past Medical History Previous Medical History?: Yes Hx Hypertension: Yes Hx CVA: Yes (left sided weakness) Hx Heart Attack/AMI: No Hx Congestive Heart Failure: Yes Hx Diabetes: Yes Hx Deep Vein Thrombosis: No Hx Pulmonary Embolism: No Hx Liver Disease: No Hx Renal Disease: Yes (Stage I) Hx Arthritis: No Hx Seizures: No Hx Asthma: Yes Hx COPD: Yes Hx Tuberculosis: No Hx Dementia: No Additional medical history: Neuropathy; Afib on Eliquis, sleep apnea - Surgical History Past Surgical History?: Yes Hx Coronary Stent: No Hx Pacemaker: No Hx Internal Defibrillator: Yes Additional Surgical History: left leg - Social History Smoking Status: Current Every Day Smoker Substance Use Type: None - Medications Home Medications: Home Medications Medication Instructions Recorded Confirmed Last Taken Type Apixaban [Eliquis] 1 tab PO BID #60 tablet 03/14/19 06/20/19 Unknown Rx Aspirin [Aspirin BABY CHEW TAB] 81 mg PO QDAY #30 tab.chew 03/14/19 06/20/19 Unknown Rx AtorvaSTATin [Lipitor] 40 mg PO QHS #30 tablet 03/14/19 06/20/19 Unknown Rx guaiFENesin ER [Mucinex ER] 600 mg PO BID #60 tablet 03/14/19 06/20/19 Unknown Rx Colchicine 0.6 mg PO QDAY #10 capsule 03/21/19 06/20/19 Unknown Rx Nicotine [Habitrol] 14 mg TD QDAY #30 patch 03/21/19 06/20/19 Unknown Rx predniSONE [Deltasone] 20 mg PO QDAY #7 tablet 03/21/19 06/20/19 Unknown Rx Digoxin [Lanoxin] 0.25 mg PO DAILY@1700 #30 tablet 05/05/19 06/20/19 Unknown Rx Acetaminophen [Acetaminophen TAB] 2 tab PO Q4H PRN #15 tablet 06/25/19 Unknown Rx Metoprolol [Lopressor TAB] 75 mg PO TID #90 tablet 06/25/19 Unknown Rx Oxycodone HCl/Acetaminophen 1 each PO Q6HR PRN #20 tablet 06/25/19 Unknown Rx [Percocet 10/325 mg] Sodium Bicarbonate 1,300 mg PO BID #90 tablet 06/25/19 Unknown Rx Torsemide [Demadex] 100 mg PO DAILY@0600 #30 tablet 06/25/19 Unknown Rx ED Physical Exam - General Limitations: Physical Limitation - Other Other exam information: General: Mild distress secondary to pain Head: Atraumatic Eyes: normal appearance ENT: Moist mucous membranes Neck: Normal appearance, no midline tenderness Chest: Clear to auscultation bilaterally or left anterior chest wall tenderness to palpation CV: irregular rhythm mild tachycardia Abdomen: Soft, normal bowel sounds, nontender, nondistended, no rebound or guarding Back: Normal inspection Extremity: Bilateral lower extremity edema. Left lateral ankle ulcer warmth or erythema Neuro: Alert O x 3, no facial asymmetry, speech clear, 4/5 left arm strength, 3/5 left left leg strength, decreased sensation to touch to left arm and leg. Psych: Appropriate behavior Skin: No rash ED Course Vital Signs 07/18/19 07/18/19 07/18/19 23:08 23:14 23:43 Temperature 98.8 F 98.0 F Pulse Rate 98 H 98 H Respiratory 20 20 20 Rate Blood Pressure 122/94 [Left] O2 Sat by Pulse 100 100 100 Oximetry ANGIE score - Angie Score Age > 65: (0) No Aspirin use within the Past 7 Days: (1) Yes 3 or more CAD Risk Factors: (1) Yes 2 or more Angina events in past 24 hrs: (1) Yes Known CAD with more than 50% Stenosis: (0) No Elevated Cardiac Markers: (0) No ST Deviation Greater than 0.5mm: (0) No ANGIE Score: 3 ED Medical Decision Making - Lab Data Result diagrams: 07/18/19 23:33 07/18/19 23:33 Lab Results 07/18/19 07/18/19 07/18/19 Range/Units 23:33 23:33 23:33 WBC 5.3 (4.5-11.0) K/mm3 RBC 3.88 (3.65-5.03) M/mm3 Hgb 11.5 L (11.8-15.2) gm/dl Hct 34.9 L (35.5-45.6) % MCV 90 (84-94) fl MCH 30 (28-32) pg MCHC 33 (32-34) % RDW 19.4 H (13.2-15.2) % Plt Count 151 (140-440) K/mm3 Lymph % (Auto) 15.5 (13.4-35.0) % [place] % (Auto) 14.8 H (0.0-7.3) % Eos % (Auto) 3.0 (0.0-4.3) % Baso % (Auto) 0.7 (0.0-1.8) % Lymph # 0.8 L (1.2-5.4) K/mm3 [place] # 0.8 (0.0-0.8) K/mm3 Eos # 0.2 (0.0-0.4) K/mm3 Baso # 0.0 (0.0-0.1) K/mm3 Seg Neutrophils % 66.0 (40.0-70.0) % Seg Neutrophils # 3.5 (1.8-7.7) K/mm3 PT 16.1 H (12.2-14.9) Sec. INR 1.31 H (0.87-1.13) APTT 36.0 (24.2-36.6) Sec. Sodium 135 L (137-145) mmol/L Potassium 3.9 (3.6-5.0) mmol/L Chloride 103.4 (98-107) mmol/L Carbon Dioxide 17 L (22-30) mmol/L Anion Gap 19 mmol/L BUN 22 H (9-20) mg/dL Creatinine 1.5 (0.8-1.5) mg/dL Estimated GFR 59 ml/min BUN/Creatinine Ratio 15 % Glucose 90 (75-100) mg/dL Calcium 8.6 (8.4-10.2) mg/dL Troponin T 0.020 (0.00-0.029) ng/mL - EKG Data -: EKG Interpreted by Me (afib rate 107) EKG shows normal: ST-T waves (no stemi) Rate: tachycardia - EKG Data When compared to previous EKG there are: no significant change - Radiology Data Radiology results: report reviewed Fluoro Time In Minutes: CHEST 2 VIEWS INDICATION: Chest Pain. COMPARISON: 06/23/2019. FINDINGS: Support devices: ICD unchanged. Heart: Stable cardiomegaly. Lungs/Pleura: Enlarging right-sided effusion which is relatively large with associated volume loss. Left lung is clear.. IMPRESSION: Large right effusion with associated volume loss. CT head/brain wo con INDICATION: sycnope, fall, yesterday. TECHNIQUE: All CT scans at this location are performed using the following dose modulation technique: Automated exposure control. CONTRAST: None. COMPARISON: None available. FINDINGS: The ventricular system is appropriate in size and configuration without midline shift. Negative for mass acute stroke or hemorrhage. Chronic encephalomalacia left posterior parietal region. Imaged bones and paranasal sinuses are unremarkable. IMPRESSION: 1. No acute abnormality. 2. Small chronic infarct left posterior parietal region. CT cervical spine wo con INDICATION: sycnope, fall, yesterday, left parethesias. TECHNIQUE: All CT scans at this location are performed using the following dose modulation technique: Automated exposure control. CONTRAST: None. COMPARISON: None available. FINDINGS: Satisfactory alignment without vertebral compression. Moderate degenerative disc disease localized C4-C5. Negative for soft tissue injury. Mild vertebral artery calcification and a large right effusion are noted. IMPRESSION: 1. Moderate degenerative disc disease localized C4-C5. 2. Atherosclerotic vascular disease. 3. Large right effusion. - Medical Decision Making pt with onset of syncope yesterday and now with left-sided pain. Left-sided chest pain appears to be reproducible and may be the result of recent fall. He was treated with Dilaudid 0.5 mg for pain. Patient has recurrent large right pleural effusion reports worsening shortness of breath and leg edema in addition to syncope yesterday. Patient also has left-sided paresthesias but also has a history of chronic weakness and some intermittent paresthesias secondary to previous CVA. CT head and cervical spine without acute findings today. Patient Will be admitted to the hospital for further workup. Hospitalist informed. consult with cardiology and pulm ordered. - Differential Diagnosis mi, pe, msk pain, chf Critical Care Time: No Critical care attestation.: If time is entered above; I have spent that time in minutes in the direct care of this critically ill patient, excluding procedure time. ED Disposition Clinical Impression: Recurrent right pleural effusion, Left-sided chest pain, Left sided numbness, History of CVA with residual deficit, Syncope, CHF exacerbation, Ulcer of left ankle, Chronic atrial fibrillation, Anticoagulant long-term use Disposition: OP ADMIT IP TO THIS HOSP Is pt being admited?: Yes Condition: Stable Referrals: PRIMARY CARE, [Primary Care Provider] - 3-5 Days Time of Disposition: 00:58 (Dr Lewis/hosp)
[2019-07-18 23:59] LABS: INR 1.31 (0.87-1.13)
[2019-07-19 00:10] LABS: Calcium 8.6 mg/dL (8.4-10.2)
--- NOTE | 2019-07-19 00:15 | Cat Scan Report ---
CT head/brain wo con INDICATION: sycnope, fall, yesterday. TECHNIQUE: All CT scans at this location are performed using the following dose modulation technique: Automated exposure control. CONTRAST: None. COMPARISON: None available. FINDINGS: The ventricular system is appropriate in size and configuration without midline shift. Nega tive for mass acute stroke or hemorrhage. Chronic encephalomalacia left posterior parietal region. Imaged bones and paranasal sinuses are unremarkable. IMPRESSION: 1. No acute abnormality. 2. Small chronic infarct left posterior parietal region. Signer Name: Jose Ramon Morgan MD Signed: 07/19/2019 12:11 AM Workstation Name: [id number]
--- NOTE | 2019-07-19 00:17 | XRay Report ---
CHEST 2 VIEWS INDICATION: Chest Pain. COMPARISON: 06/23/2019. FINDINGS: Support devices: ICD unchanged. Heart: Stable cardiomegaly. Lungs/Pleura: Enlarging right-sided effusion which is relatively large with associated volume loss. L eft lung is clear.. IMPRESSION: Large right effusion with associated volume loss. Signer Name: Jose Ramon Morgan MD Signed: 07/19/2019 12:12 AM Workstation Name: [id number]
--- NOTE | 2019-07-19 00:20 | Cat Scan Report ---
CT cervical spine wo con INDICATION: sycnope, fall, yesterday, left parethesias. TECHNIQUE: All CT scans at this location are performed using the following dose modulation technique: Automated exposure control. CONTRAST: None. COMPARISON: None available. FINDINGS: Satisfactory alignment without vertebral compression. Moderate degenerative disc disease lo calized C4-C5. Negative for soft tissue injury. Mild vertebral artery calcification and a large right effusion are n oted. IMPRESSION: 1. Moderate degenerative disc disease localized C4-C5. 2. Atherosclerotic vascular disease. 3. Large right effusion. Signer Name: Jose Ramon Morgan MD Signed: 07/19/2019 12:15 AM Workstation Name: [id number]
[2019-07-19] MEDS ORDERED: ONDANSETRON 4 MG/2 ML INJ IV PRN (01:38)
[2019-07-19] MEDS ORDERED: DEXTROSE 50% IN WATER (25GM) 50 ML SYRINGE IV PRN ×3 (01:38→22:01)
[2019-07-19] MEDS ORDERED: NITROGLYCERIN 0.4 MG TAB SUBL SL PRN (01:38)
[2019-07-19] MEDS ORDERED: MORPHINE 2 MG/1 ML INJ IV PRN (01:38)
[2019-07-19] MEDS ORDERED: MAGNESIUM HYDROXIDE (MOM) ORAL LIQD UDC PO PRN (01:38)
[2019-07-19] MEDS ORDERED: MORPHINE 2 MG/1 ML INJ ONE ×2 (02:23)
[2019-07-19] MEDS ORDERED: ACETAMINOPHEN 325 MG TAB ONE (02:24)
[2019-07-19] MEDS: MORPHINE 2 MG/1 ML INJ IV PRN ×5 (02:27→23:01)
[2019-07-19] MEDS: ACETAMINOPHEN 325 MG TAB PO PRN ×2 (02:28→08:21)
[2019-07-19 02:36] LABS: Basophils # (Auto) 0.1 K/mm3 (0.0-0.1); Basophils % (Auto) 1.1 % (0.0-1.8); Eosinophils # (Auto) 0.2 K/mm3 (0.0-0.4); Eosinophils % (Auto) 2.7 % (0.0-4.3); Hemoglobin 12.1 gm/dl (11.8-15.2); Lymphocytes # (Auto) 1.2 K/mm3 (1.2-5.4); Lymphocytes % (Auto) 20.5 % (13.4-35.0); Mean Corpuscular HGB Conc 32 % (32-34); Mean Corpuscular Volume 90 fl (84-94); Monocytes # (Auto) 0.8 K/mm3 (0.0-0.8); Monocytes % (Auto) 13.8 % (0.0-7.3); Platelet Count 163 K/mm3 (140-440); Red Blood Count 4.22 M/mm3 (3.65-5.03); Red Cell Distribution Width 19.9 % (13.2-15.2)
--- NOTE | 2019-07-19 02:37 | History and Physical Report ---
History of Present Illness Date of examination: 07/19/19 Date of admission: 07/19/19 01:00 Chief complaint: Chest pain History of present illness: Is a 54-year-old male with known history of A. fib, history of CVA in the past, asthma, sleep apnea COPD, CHF, history of A. fib currently on Eliquis for anticoagulation presenting to the emergency room today complaining of left-sided chest pain. Chest pain has been intermittent all day and is worse on movement. There is no no relieving or exacerbating factor was given some aspirin and sublingual nitroglycerin in route to the hospital without any significant improvement. Patient indicates that he has been having increasing shortness of breath over the past few days he also had what appeared to be a syncopal episode about 2 days ago. Indicates he lost consciousness for a few hours prior to arrival of his granddaughter found him on the floor. Was light headed prior to the syncope. He denies any headache and denies any neck pain. Patient was admitted in the hospital sometime last month for volume overload. He had a large right pleural effusion and had thoracentesis performed on June 23 and was supposed to follow-up with the chief radiation therapist on outpatient basis. Patient has not been able to to have any follow-up. His work-up today in the emergency room reveals recurrence of the right sided pleural effusion. Past History Past Medical History: diabetes, heart failure, hypertension Past Surgical History: Other (Defibrillator placement) Social history: smoking (Smokes 2 cigarettes daily) Family history: cancer, hypertension, other Medications and Allergies Allergies Allergy/AdvReac Type Severity Reaction Status Date / Time Penicillins Allergy Itching Verified 03/05/19 22:41 strawberry Allergy Hives Verified 03/05/19 22:41 Home Medications Medication Instructions Recorded Confirmed Last Taken Type Apixaban [Eliquis] 1 tab PO BID #60 tablet 03/14/19 06/20/19 Unknown Rx Aspirin [Aspirin BABY CHEW TAB] 81 mg PO QDAY #30 tab.chew 03/14/19 06/20/19 Unknown Rx AtorvaSTATin [Lipitor] 40 mg PO QHS #30 tablet 03/14/19 06/20/19 Unknown Rx guaiFENesin ER [Mucinex ER] 600 mg PO BID #60 tablet 03/14/19 06/20/19 Unknown Rx Colchicine 0.6 mg PO QDAY #10 capsule 03/21/19 06/20/19 Unknown Rx Nicotine [Habitrol] 14 mg TD QDAY #30 patch 03/21/19 06/20/19 Unknown Rx predniSONE [Deltasone] 20 mg PO QDAY #7 tablet 03/21/19 06/20/19 Unknown Rx Digoxin [Lanoxin] 0.25 mg PO DAILY@1700 #30 tablet 05/05/19 06/20/19 Unknown Rx Acetaminophen [Acetaminophen TAB] 2 tab PO Q4H PRN #15 tablet 06/25/19 Unknown Rx Metoprolol [Lopressor TAB] 75 mg PO TID #90 tablet 06/25/19 Unknown Rx Oxycodone HCl/Acetaminophen 1 each PO Q6HR PRN #20 tablet 06/25/19 Unknown Rx [Percocet 10/325 mg] Sodium Bicarbonate 1,300 mg PO BID #90 tablet 06/25/19 Unknown Rx Torsemide [Demadex] 100 mg PO DAILY@0600 #30 tablet 06/25/19 Unknown Rx Active Meds: Active Medications Acetaminophen (Tylenol) 650 mg PO Q4H PRN PRN Reason: Pain MILD(1-3)/Fever >100.5/TRUJILLO Last Admin: 07/19/19 02:28 Dose: 650 mg Documented by: Aspirin (Ecotrin) 325 mg PO QDAY [facility] Dextrose (D50w (25gm) Syringe) 0 ml IV Q30MIN PRN; Protocol PRN Reason: Hypoglycemia Docusate Sodium (Colace) 100 mg PO BID [place] Furosemide (Lasix) 40 mg IV BID@0600,1800 [facility] Insulin Human Regular (Humulin R) 0 units SUB-Q ACHS [facility]; Protocol Magnesium Hydroxide (Milk Of Magnesia) 30 ml PO Q4H PRN PRN Reason: Constipation Morphine Sulfate (Morphine) 2 mg IV Q4H PRN PRN Reason: Pain, Moderate (4-6) Last Admin: 07/19/19 02:27 Dose: 2 mg Documented by: Morphine Sulfate (Morphine) 2 mg IV Q5MIN PRN PRN Reason: Chest Pain unrelieved by NTG Nitroglycerin (Nitrostat) 0.4 mg SL Q5M PRN PRN Reason: Chest Pain Ondansetron HCl (Zofran) 4 mg IV Q8H PRN PRN Reason: Nausea And Vomiting Sodium Chloride (Sodium Chloride Flush Syringe 10 Ml) 10 ml IV BID S[place]MYA Sodium Chloride (Sodium Chloride Flush Syringe 10 Ml) 10 ml IV PRN PRN PRN Reason: LINE FLUSH Review of Systems Cardiovascular: chest pain Exam - Constitutional Vitals: Temp Pulse Resp BP Pulse Ox 97.4 F L 122 H 18 120/89 100 07/19/19 02:03 07/19/19 02:03 07/19/19 02:03 07/19/19 02:03 07/19/19 02:03 General appearance: Present: no acute distress, mild distress - EENT Eyes: Present: PERRL, EOM intact ENT: hearing intact, clear oral mucosa, dentition normal - Neck Neck: Present: supple, normal ROM - Respiratory Respiratory effort: normal Respiratory: bilateral: rales - Cardiovascular Rhythm: irregularly irregular Heart Sounds: Present: S1 & S2 - Extremities Extremities: no ischemia, pulses intact, Full ROM Extremity abnormal: edema (2+ ankle edema), ulceration (Open ulcer on the lateral aspect of the left ankle. No drainage) Peripheral Pulses: within normal limits - Abdominal General gastrointestinal: Present: soft, non-tender, tender, non-distended, normal bowel sounds - Integumentary Integumentary: Present: clear, warm, dry - Musculoskeletal Musculoskeletal: strength equal bilaterally - Psychiatric Psychiatric: appropriate mood/affect, intact judgment & insight, cooperative - Neurologic Neurologic: CNII-XII intact, moves all extremities Results - Labs CBC & Chem 7: 07/19/19 02:09 07/19/19 02:09 Labs: Abnormal lab results 07/18/19 07/18/19 07/18/19 Range/Units 23:33 23:33 23:33 Hgb 11.5 L (11.8-15.2) gm/dl Hct 34.9 L (35.5-45.6) % RDW 19.4 H (13.2-15.2) % [place] % (Auto) 14.8 H (0.0-7.3) % Lymph # 0.8 L (1.2-5.4) K/mm3 PT 16.1 H (12.2-14.9) Sec. INR 1.31 H (0.87-1.13) Sodium 135 L (137-145) mmol/L Carbon Dioxide 17 L (22-30) mmol/L BUN 22 H (9-20) mg/dL Assessment and Plan - Patient Problems (1) Recurrent right pleural effusion Current Visit: Yes Status: Acute Plan to address problem: Taxonomy Teacher has been consulted for evaluation. Patient had thoracentesis done about a month ago and was supposed to follow-up with chief radiation therapist on outpatient basis. He has not been able to make a follow- up appointment. (2) Syncope Current Visit: Yes Status: Acute Plan to address problem: Etiology is unclear. We will follow-up with echocardiogram. (3) Ulcer of left ankle Current Visit: Yes Status: Acute Plan to address problem: We will place a consult to wound care team for evaluation of left ankle wound. (4) Chest pain Current Visit: No Status: Acute Qualifiers: Chest pain type: unspecified Qualified Code(s): R07.9 - Chest pain, unspecified Plan to address problem: We will check serial cardiac enzymes. We will request cardiology evaluation in the a.m. We will trend cardiac enzymes (5) DVT prophylaxis Current Visit: No Status: Acute Plan to address problem: Patient currently on anticoagulation. (6) Diabetes Current Visit: No Status: Acute Plan to address problem: We will monitor Accu-Cheks and continue routine home medications (7) HTN (hypertension) Current Visit: No Status: Acute Qualifiers: Hypertension type: essential hypertension Qualified Code(s): I10 - Essential (primary) hypertension Plan to address problem: Blood pressure stable will continue routine home medication monitor vital signs closely (8) Full code status Current Visit: Yes Status: Acute
[2019-07-19 03:01] LABS: Calcium 8.7 mg/dL (8.4-10.2)
[2019-07-19] MEDS: FUROSEMIDE 40 MG/4 ML INJ IV SCH ×2 (06:23→17:31)
[2019-07-19] MEDS: INSULIN REGULAR, HUMAN 100 UNITS/1 ML SUB-Q SCH ×4 (07:30→23:04)
[2019-07-19] MEDS: METOPROLOL TARTRATE 50 MG TAB PO SCH ×3 (08:22→23:08)
[2019-07-19] MEDS: METOPROLOL TARTRATE 25 MG TAB PO SCH ×3 (08:22→23:08)
--- NOTE | 2019-07-19 08:32 | Consultation ---
History of Present Illness Consult date: 07/19/19 Requesting physician: ANDREW PAYNE Reason for consult: pleural effusion (Right; Recurrent) History of present illness: PCCM CONSULT NOTE (Full dictation # ) Please see dictated notes for full details Past History Past Medical History: diabetes, heart failure, hypertension Past Surgical History: Other (Defibrillator placement) Social history: smoking (Smokes 2 cigarettes daily) Family history: cancer, hypertension, other Medications and Allergies Allergies Allergy/AdvReac Type Severity Reaction Status Date / Time Penicillins Allergy Itching Verified 03/05/19 22:41 strawberry Allergy Hives Verified 03/05/19 22:41 Home Medications Medication Instructions Recorded Confirmed Last Taken Type Apixaban [Eliquis] 1 tab PO BID #60 tablet 03/14/19 06/20/19 Unknown Rx Aspirin [Aspirin BABY CHEW TAB] 81 mg PO QDAY #30 tab.chew 03/14/19 06/20/19 Unknown Rx AtorvaSTATin [Lipitor] 40 mg PO QHS #30 tablet 03/14/19 06/20/19 Unknown Rx guaiFENesin ER [Mucinex ER] 600 mg PO BID #60 tablet 03/14/19 06/20/19 Unknown Rx Colchicine 0.6 mg PO QDAY #10 capsule 03/21/19 06/20/19 Unknown Rx Nicotine [Habitrol] 14 mg TD QDAY #30 patch 03/21/19 06/20/19 Unknown Rx predniSONE [Deltasone] 20 mg PO QDAY #7 tablet 03/21/19 06/20/19 Unknown Rx Digoxin [Lanoxin] 0.25 mg PO DAILY@1700 #30 tablet 05/05/19 06/20/19 Unknown Rx Acetaminophen [Acetaminophen TAB] 2 tab PO Q4H PRN #15 tablet 06/25/19 Unknown Rx Metoprolol [Lopressor TAB] 75 mg PO TID #90 tablet 06/25/19 Unknown Rx Oxycodone HCl/Acetaminophen 1 each PO Q6HR PRN #20 tablet 06/25/19 Unknown Rx [Percocet 10/325 mg] Sodium Bicarbonate 1,300 mg PO BID #90 tablet 06/25/19 Unknown Rx Torsemide [Demadex] 100 mg PO DAILY@0600 #30 tablet 06/25/19 Unknown Rx Active Meds: Active Medications Acetaminophen (Tylenol) 650 mg PO Q4H PRN PRN Reason: Pain MILD(1-3)/Fever >100.5/TRUJILLO Last Admin: 07/19/19 08:21 Dose: 650 mg Documented by: Aspirin (Ecotrin) 325 mg PO QDAY [facility] Atorvastatin Calcium (Lipitor) 40 mg PO QHS [facility] Dextrose (D50w (25gm) Syringe) 0 ml IV Q30MIN PRN; Protocol PRN Reason: Hypoglycemia Digoxin (Lanoxin) 0.25 mg PO DAILY@1700 [facility] Docusate Sodium (Colace) 100 mg PO BID [facility] Furosemide (Lasix) 40 mg IV BID@0600,1800 [facility] Last Admin: 07/19/19 06:23 Dose: 40 mg Documented by: Heparin Sodium (Porcine) (Heparin) 5,000 unit SUB-Q Q8HR [facility] Insulin Human Regular (Humulin R) 0 units SUB-Q ACHS [facility]; Protocol Magnesium Hydroxide (Milk Of Magnesia) 30 ml PO Q4H PRN PRN Reason: Constipation Metoprolol Tartrate (Metoprolol) 50 mg PO TID [facility] Last Admin: 07/19/19 08:22 Dose: 50 mg Documented by: Metoprolol Tartrate (Metoprolol) 25 mg PO TID [facility] Last Admin: 07/19/19 08:22 Dose: 25 mg Documented by: Morphine Sulfate (Morphine) 2 mg IV Q4H PRN PRN Reason: Pain, Moderate (4-6) Last Admin: 07/19/19 06:22 Dose: 2 mg Documented by: Morphine Sulfate (Morphine) 2 mg IV Q5MIN PRN PRN Reason: Chest Pain unrelieved by NTG Nicotine (Habitrol) 14 mg TD QDAY [facility] Nitroglycerin (Nitrostat) 0.4 mg SL Q5M PRN PRN Reason: Chest Pain Ondansetron HCl (Zofran) 4 mg IV Q8H PRN PRN Reason: Nausea And Vomiting Prednisone (Deltasone) 20 mg PO QDAY [facility] Sodium Bicarbonate (Sodium Bicarbonate) 1,300 mg PO BID [facility] Sodium Chloride (Sodium Chloride Flush Syringe 10 Ml) 10 ml IV BID [facility] Sodium Chloride (Sodium Chloride Flush Syringe 10 Ml) 10 ml IV PRN PRN PRN Reason: LINE FLUSH Last Admin: 07/19/19 06:23 Dose: 10 ml Documented by: Physical Examination Vital signs: Vital Signs Temp Pulse Resp Pulse Ox 98.8 F 98 H 20 100 07/18/19 23:08 07/18/19 23:08 07/18/19 23:08 07/18/19 23:08 Results - Laboratory Findings CBC and BMP: 07/19/19 02:09 07/19/19 02:09 PT/INR, D-dimer PT 16.1 Sec. (12.2-14.9) H 07/18/19 23:33 INR 1.31 (0.87-1.13) H 07/18/19 23:33 Abnormal lab findings: Abnormal Labs 07/18/19 07/18/19 07/18/19 23:33 23:33 23:33 Hgb 11.5 L Hct 34.9 L RDW 19.4 H [place] % (Auto) 14.8 H Lymph # 0.8 L PT 16.1 H INR 1.31 H Sodium 135 L Carbon Dioxide 17 L BUN 22 H Creatinine Glucose 07/19/19 07/19/19 02:09 02:09 Hgb Hct RDW 19.9 H [place] % (Auto) 13.8 H Lymph # PT INR Sodium Carbon Dioxide 18 L BUN 23 H Creatinine 1.6 H Glucose 101 H
[2019-07-19] MEDS: NICOTINE 14 MG/24 HR PATCH TD SCH (09:58)
[2019-07-19] MEDS: predniSONE 20 MG TAB PO SCH (09:58)
[2019-07-19] MEDS: DOCUSATE SODIUM 100 MG CAP PO SCH ×2 (09:58→23:03)
[2019-07-19] MEDS: SODIUM BICARBONATE 650 MG TAB PO SCH ×2 (10:06→23:04)
--- NOTE | 2019-07-19 12:51 | Consultation ---
History of Present Illness Consult date: 07/19/19 Consult reason: congestive heart failure History of present illness: Patient is a 54-year old male with a cardiac history of chronic atrial fibri llation and nonischemic cardiomyopathy with ejection fraction 15-20%. He also has an indwelling cardiac defibrillator. Patient is on chronic oral anticoagulation therapy with Eliquis. His latest echocardiogram showed a decreased left ventricular systolic function, ejection fraction 15-20%. Patient presented with shortness of breath and chest pain, admitted with recurrent right pleural effusion. Pulmonary evaluation is pending. Patient denies AICD discharge. An ECG shows rapid atrial fibrillation, rate 107. Past History Past Medical History: diabetes, heart failure, hypertension Past Surgical History: Other (Defibrillator placement) Social history: smoking (Smokes 2 cigarettes daily) Family history: cancer, hypertension, other Medications and Allergies Allergies Allergy/AdvReac Type Severity Reaction Status Date / Time Penicillins Allergy Itching Verified 03/05/19 22:41 strawberry Allergy Hives Verified 03/05/19 22:41 Home Medications Medication Instructions Recorded Confirmed Last Taken Type Apixaban [Eliquis] 1 tab PO BID #60 tablet 03/14/19 06/20/19 Unknown Rx Aspirin [Aspirin BABY CHEW TAB] 81 mg PO QDAY #30 tab.chew 03/14/19 06/20/19 Unknown Rx AtorvaSTATin [Lipitor] 40 mg PO QHS #30 tablet 03/14/19 06/20/19 Unknown Rx guaiFENesin ER [Mucinex ER] 600 mg PO BID #60 tablet 03/14/19 06/20/19 Unknown Rx Colchicine 0.6 mg PO QDAY #10 capsule 03/21/19 06/20/19 Unknown Rx Nicotine [Habitrol] 14 mg TD QDAY #30 patch 03/21/19 06/20/19 Unknown Rx predniSONE [Deltasone] 20 mg PO QDAY #7 tablet 03/21/19 06/20/19 Unknown Rx Digoxin [Lanoxin] 0.25 mg PO DAILY@1700 #30 tablet 05/05/19 06/20/19 Unknown Rx Acetaminophen [Acetaminophen TAB] 2 tab PO Q4H PRN #15 tablet 06/25/19 Unknown Rx Metoprolol [Lopressor TAB] 75 mg PO TID #90 tablet 06/25/19 Unknown Rx Oxycodone HCl/Acetaminophen 1 each PO Q6HR PRN #20 tablet 06/25/19 Unknown Rx [Percocet 10/325 mg] Sodium Bicarbonate 1,300 mg PO BID #90 tablet 06/25/19 Unknown Rx Torsemide [Demadex] 100 mg PO DAILY@0600 #30 tablet 06/25/19 Unknown Rx Active Meds: Active Medications Acetaminophen (Tylenol) 650 mg PO Q4H PRN PRN Reason: Pain MILD(1-3)/Fever >100.5/TRUJILLO Last Admin: 07/19/19 08:21 Dose: 650 mg Documented by: Aspirin (Ecotrin) 325 mg PO QDAY [facility] Atorvastatin Calcium (Lipitor) 40 mg PO QHS [facility] Dextrose (D50w (25gm) Syringe) 0 ml IV Q30MIN PRN; Protocol PRN Reason: Hypoglycemia Digoxin (Lanoxin) 0.25 mg PO DAILY@1700 [facility] Docusate Sodium (Colace) 100 mg PO BID [facility] Last Admin: 07/19/19 09:58 Dose: 100 mg Documented by: Furosemide (Lasix) 40 mg IV BID@0600,1800 [facility] Last Admin: 07/19/19 06:23 Dose: 40 mg Documented by: Heparin Sodium (Porcine) (Heparin) 5,000 unit SUB-Q Q8HR [facility] Insulin Human Regular (Humulin R) 0 units SUB-Q ACHS [facility]; Protocol Last Admin: 07/19/19 07:30 Dose: Not Given Documented by: Magnesium Hydroxide (Milk Of Magnesia) 30 ml PO Q4H PRN PRN Reason: Constipation Metoprolol Tartrate (Metoprolol) 50 mg PO TID [facility] Last Admin: 07/19/19 08:22 Dose: 50 mg Documented by: Metoprolol Tartrate (Metoprolol) 25 mg PO TID [facility] Last Admin: 07/19/19 08:22 Dose: 25 mg Documented by: Morphine Sulfate (Morphine) 2 mg IV Q4H PRN PRN Reason: Pain, Moderate (4-6) Last Admin: 07/19/19 10:54 Dose: 2 mg Documented by: Morphine Sulfate (Morphine) 2 mg IV Q5MIN PRN PRN Reason: Chest Pain unrelieved by NTG Nicotine (Habitrol) 14 mg TD QDAY [facility] Last Admin: 07/19/19 09:58 Dose: 14 mg Documented by: Nitroglycerin (Nitrostat) 0.4 mg SL Q5M PRN PRN Reason: Chest Pain Ondansetron HCl (Zofran) 4 mg IV Q8H PRN PRN Reason: Nausea And Vomiting Prednisone (Deltasone) 20 mg PO QDAY [facility] Last Admin: 07/19/19 09:58 Dose: 20 mg Documented by: Sodium Bicarbonate (Sodium Bicarbonate) 1,300 mg PO BID [facility] Last Admin: 07/19/19 10:06 Dose: 1,300 mg Documented by: Sodium Chloride (Sodium Chloride Flush Syringe 10 Ml) 10 ml IV BID [facility] Last Admin: 07/19/19 09:59 Dose: 10 ml Documented by: Sodium Chloride (Sodium Chloride Flush Syringe 10 Ml) 10 ml IV PRN PRN PRN Reason: LINE FLUSH Last Admin: 07/19/19 06:23 Dose: 10 ml Documented by: Physical Examination Vital Signs Temp Pulse Resp Pulse Ox 98.8 F 98 H 20 100 07/18/19 23:08 07/18/19 23:08 07/18/19 23:08 07/18/19 23:08 General appearance: no acute distress HEENT: Positive: PERRL Neck: Positive: trachea midline Cardiac: Positive: irregularly irregular Lungs: Positive: Decreased Breath Sounds Results 07/19/19 02:09 07/19/19 02:09 Coagulation 07/18/19 Range/Units 23:33 PT 16.1 H (12.2-14.9) Sec. INR 1.31 H (0.87-1.13) APTT 36.0 (24.2-36.6) Sec. CBC 07/18/19 07/19/19 Range/Units 23:33 02:09 WBC 5.3 5.7 (4.5-11.0) K/mm3 RBC 3.88 4.22 (3.65-5.03) M/mm3 Hgb 11.5 L 12.1 (11.8-15.2) gm/dl Hct 34.9 L 38.0 (35.5-45.6) % Plt Count 151 163 (140-440) K/mm3 Lymph # 0.8 L 1.2 (1.2-5.4) K/mm3 [place] # 0.8 0.8 (0.0-0.8) K/mm3 Eos # 0.2 0.2 (0.0-0.4) K/mm3 Baso # 0.0 0.1 (0.0-0.1) K/mm3 Comprehensive Metabolic Panel 07/18/19 07/19/19 Range/Units 23:33 02:09 Sodium 135 L 138 (137-145) mmol/L Potassium 3.9 4.0 (3.6-5.0) mmol/L Chloride 103.4 104.4 (98-107) mmol/L Carbon Dioxide 17 L 18 L (22-30) mmol/L BUN 22 H 23 H (9-20) mg/dL Creatinine 1.5 1.6 H (0.8-1.5) mg/dL Glucose 90 101 H (75-100) mg/dL Calcium 8.6 8.7 (8.4-10.2) mg/dL
[2019-07-19] MEDS ORDERED: HEPARIN 5,000 UNIT/1 ML VIAL SUB-Q SCH (14:00)
--- NOTE | 2019-07-19 15:05 | Consultation ---
History of Present Illness Consult date: 07/19/19 Reason for consult: other (Dyspnea, pleural effusion) History of present illness: Is a 54-year-old male with known history of A. fib, history of CVA in the past, asthma, sleep apnea COPD, CHF, history of A. fib currently on Eliquis for anticoagulation presenting to the emergency room today complaining of left-sided chest pain. Chest pain has been intermittent all day and is worse on movement. There is no no relieving or exacerbating factor was given some aspirin and sublingual nitroglycerin in route to the hospital without any significant improvement. Patient indicates that he has been having increasing shortness of breath over the past few days he also had what appeared to be a syncopal episode about 2 days ago. Indicates he lost consciousness for a few hours prior to arrival of his granddaughter found him on the floor. Was light headed prior to the syncope. He denies any headache and denies any neck pain. Patient was admitted in the hospital last month for volume overload. He had a large right pleural effusion and had thoracentesis performed on June 23 and was supposed to follow-up with the certified medical asst on outpatient basis. Patient has not been able to to have any follow-up. His work-up today in the emergency room reveals recurrence of the right sided pleural effusion. A pulmonary consult has been requested for the right pleural effusion. Thank you for the consult I cannot locate any cytology results from the last pleural fluid analysis. Patient was seen and examined. Vitals, labs, medications, chart and imaging were reviewed. He is sitting up at the side of the bed. He states he smoked 2PPd for over 20 years and smokes about 1/4 pack per day now. He says he has a sleep apnea and was on a machine when he lived in [place]. He dd not bring the machine with him to [place]. He has shortness of breath and generalized non specific pain. He has a cardiac history of chronic atrial fibrillation and non ischemic cardiomyopathy with ejection fraction 15-20% s/p cardiac defibrillator. Past History Past Medical History: diabetes, heart failure, hypertension Past Surgical History: Other (Defibrillator placement) Social history: smoking (Smokes 2 cigarettes daily) Family history: cancer, hypertension, other Medications and Allergies Allergies Allergy/AdvReac Type Severity Reaction Status Date / Time Penicillins Allergy Itching Verified 03/05/19 22:41 strawberry Allergy Hives Verified 03/05/19 22:41 Home Medications Medication Instructions Recorded Confirmed Last Taken Type Apixaban [Eliquis] 1 tab PO BID #60 tablet 03/14/19 07/19/19 07/17/19 Rx Aspirin [Aspirin BABY CHEW TAB] 81 mg PO QDAY #30 tab.chew 03/14/19 07/19/19 07/19/19 15:57 Rx AtorvaSTATin [Lipitor] 40 mg PO QHS #30 tablet 03/14/19 07/19/19 07/19/19 15:58 Rx guaiFENesin ER [Mucinex ER] 600 mg PO BID #60 tablet 03/14/19 07/19/19 Unknown Rx Colchicine 0.6 mg PO QDAY #10 capsule 03/21/19 07/19/19 07/17/19 Rx Nicotine [Habitrol] 14 mg TD QDAY #30 patch 03/21/19 07/19/19 07/19/19 15:53 Rx predniSONE [Deltasone] 20 mg PO QDAY #7 tablet 03/21/19 07/19/19 07/17/19 Rx Digoxin [Lanoxin] 0.25 mg PO DAILY@1700 #30 tablet 05/05/19 07/19/19 07/18/19 Rx Acetaminophen [Acetaminophen TAB] 2 tab PO Q4H PRN #15 tablet 06/25/19 07/19/19 07/19/19 15:58 Rx Metoprolol [Lopressor TAB] 75 mg PO TID #90 tablet 06/25/19 07/19/19 07/19/19 15:53 Rx Oxycodone HCl/Acetaminophen 1 each PO Q6HR PRN #20 tablet 06/25/19 07/19/19 07/16/19 Rx [Percocet 10/325 mg] Sodium Bicarbonate 1,300 mg PO BID #90 tablet 06/25/19 07/19/19 07/19/19 15:53 Rx Torsemide [Demadex] 100 mg PO DAILY@0600 #30 tablet 06/25/19 07/19/19 Unknown Rx Active Meds: Active Medications Acetaminophen (Tylenol) 650 mg PO Q4H PRN PRN Reason: Pain MILD(1-3)/Fever >100.5/TRUJILLO Last Admin: 07/19/19 08:21 Dose: 650 mg Documented by: Aspirin (Ecotrin) 325 mg PO QDAY [facility] Atorvastatin Calcium (Lipitor) 40 mg PO QHS [facility] Dextrose (D50w (25gm) Syringe) 0 ml IV Q30MIN PRN; Protocol PRN Reason: Hypoglycemia Digoxin (Lanoxin) 0.25 mg PO DAILY@1700 [facility] Docusate Sodium (Colace) 100 mg PO BID [facility] Last Admin: 07/19/19 09:58 Dose: 100 mg Documented by: Furosemide (Lasix) 40 mg IV BID@0600,1800 [facility] Last Admin: 07/19/19 06:23 Dose: 40 mg Documented by: Heparin Sodium (Porcine) (Heparin) 5,000 unit SUB-Q Q8HR [facility] Last Admin: 07/19/19 14:15 Dose: 5,000 unit Documented by: Insulin Human Regular (Humulin R) 0 units SUB-Q ACHS [facility]; Protocol Last Admin: 07/19/19 13:20 Dose: Not Given Documented by: Magnesium Hydroxide (Milk Of Magnesia) 30 ml PO Q4H PRN PRN Reason: Constipation Metoprolol Tartrate (Metoprolol) 50 mg PO TID [facility] Last Admin: 07/19/19 14:14 Dose: 50 mg Documented by: Metoprolol Tartrate (Metoprolol) 25 mg PO TID [facility] Last Admin: 07/19/19 14:14 Dose: 25 mg Documented by: Morphine Sulfate (Morphine) 2 mg IV Q4H PRN PRN Reason: Pain, Moderate (4-6) Last Admin: 07/19/19 10:54 Dose: 2 mg Documented by: Morphine Sulfate (Morphine) 2 mg IV Q5MIN PRN PRN Reason: Chest Pain unrelieved by NTG Nicotine (Habitrol) 14 mg TD QDAY [facility] Last Admin: 07/19/19 09:58 Dose: 14 mg Documented by: Nitroglycerin (Nitrostat) 0.4 mg SL Q5M PRN PRN Reason: Chest Pain Ondansetron HCl (Zofran) 4 mg IV Q8H PRN PRN Reason: Nausea And Vomiting Prednisone (Deltasone) 20 mg PO QDAY [facility] Last Admin: 07/19/19 09:58 Dose: 20 mg Documented by: Sodium Bicarbonate (Sodium Bicarbonate) 1,300 mg PO BID [facility] Last Admin: 07/19/19 10:06 Dose: 1,300 mg Documented by: Sodium Chloride (Sodium Chloride Flush Syringe 10 Ml) 10 ml IV BID [facility] Last Admin: 07/19/19 09:59 Dose: 10 ml Documented by: Sodium Chloride (Sodium Chloride Flush Syringe 10 Ml) 10 ml IV PRN PRN PRN Reason: LINE FLUSH Last Admin: 07/19/19 06:23 Dose: 10 ml Documented by: Review of Systems All systems: negative Physical Examination Vital signs: Vital Signs Temp Pulse Resp Pulse Ox 98.8 F 98 H 20 100 07/18/19 23:08 07/18/19 23:08 07/18/19 23:08 07/18/19 23:08 General appearance: alert, appears uncomfortable Eyes: non-icteric ENT: oropharynx moist Neck: supple, no lymphadenopathy, no JVD Effort: mildly labored Ascultation: Bilateral: diminished breath sounds, other (poor AE right lung ) Cardiovascular: murmur noted, other (Afib with rvr) Gastrointestinal: normoactive bowel sounds, soft, non-tender, other (mild distension, non tender) Extremities: no cyanosis, cool (Left foot dressing with edema) normal mental status, pupils equal and round, CN II-XII normal depressed Results - Laboratory Findings CBC and BMP: 07/20/19 08:23 07/20/19 08:23 PT/INR, D-dimer PT 16.1 Sec. (12.2-14.9) H 07/18/19 23:33 INR 1.31 (0.87-1.13) H 07/18/19 23:33 Abnormal lab findings: Abnormal Labs 07/18/19 07/18/19 07/18/19 23:33 23:33 23:33 Hgb 11.5 L Hct 34.9 L RDW 19.4 H [place] % (Auto) 14.8 H Lymph # 0.8 L PT 16.1 H INR 1.31 H Sodium 135 L Carbon Dioxide 17 L BUN 22 H Creatinine Glucose Digoxin 07/19/19 07/19/19 07/19/19 02:09 02:09 10:08 Hgb Hct RDW 19.9 H [place] % (Auto) 13.8 H Lymph # PT INR Sodium Carbon Dioxide 18 L BUN 23 H Creatinine 1.6 H Glucose 101 H Digoxin 0.3 L - Diagnostic Findings Chest x-ray: image reviewed (Cardiomegaly, large right pleural effusion) Assessment and Plan Large Right pleural effusion Atypical chest pain Tobacco use disorder/Nicotine dependence Acute on chronic systolic heart failure h/o chronic Respiratory failure Sleep apnea DM type 2 Anemia Left leg Diabetic Ulcer -ABG -Supplemental oxygen to keep O2 sast>90% -Hold Eliquis for right thoracentesis in the morning -Send for PFA including cytology -Heart failure measures -Avoid nephrotoxins, monitor electrolytes and address as needed -Monitor hemodynamics closely -Place on nocturnal BIPAP 08/06, back up rate 12, FIO2 30% -Management of atrial fibrillation per Cardiology -Accuchecks with glycemic control, avoid hypoglycemia -Smoking cessation counselling done for >5 minutes at bedside -Nicotine withdrawal precautions -Need for adherence to medical therapy encouraged -Influenza and pneumonia vaccination per protocol -Wound care to evaluate the left foot ulcer Thank you for consult. Will follow
--- NOTE | 2019-07-19 15:59 | Consultation ---
History of Present Illness - Reason for Consult Consult date: 07/19/19 PVD - History of Present Illness 54-year-old male with known history of A. fib, history of CVA in the past, asthma, sleep apnea COPD, CHF, history of A. fib currently on Eliquis for anticoagulation presenting to the emergency room today complaining of left-sided chest pain. Chest pain has been intermittent all day and is worse on movement. There is no no relieving or exacerbating factor was given some aspirin and subli ngual nitroglycerin in route to the hospital without any significant i improvement. Patient indicates that he has been having increasing shortness of breath over the past few days he also had what appeared to be a syncopal episode about 2 days ago. Indicates he lost consciousness for a few hours prior to arrival of his granddaughter found him on the floor. Was light headed prior to the syncope. He denies any headache and denies any neck pain. Patient was admitted in the hospital sometime last month for volume overload. He had a large right pleural effusion and had thoracentesis performed on June 23 and was supposed to follow-up with the stockbroker on outpatient basis. Patient has not been able to to have any follow-up. His work-up today in the emergency room reveals recurrence of the right sided pleural effusion. Vascular consultation for nonhealing wound of the left lower extremity. Patient reports that he has had this on and off for years where it would ulcerate and take a long time before healing along his left ankle. History of DVT of the left lower extremity. Past History Past Medical History: diabetes, heart failure, hypertension Past Surgical History: Other (Defibrillator placement) Social history: smoking (Smokes 2 cigarettes daily) Family history: cancer, hypertension, other Medications and Allergies Allergies Allergy/AdvReac Type Severity Reaction Status Date / Time Penicillins Allergy Itching Verified 03/05/19 22:41 strawberry Allergy Hives Verified 03/05/19 22:41 Home Medications Medication Instructions Recorded Confirmed Last Taken Type Apixaban [Eliquis] 1 tab PO BID #60 tablet 03/14/19 07/19/19 07/17/19 Rx Aspirin [Aspirin BABY CHEW TAB] 81 mg PO QDAY #30 tab.chew 03/14/19 07/19/19 07/19/19 15:57 Rx AtorvaSTATin [Lipitor] 40 mg PO QHS #30 tablet 03/14/19 07/19/19 07/19/19 15:58 Rx guaiFENesin ER [Mucinex ER] 600 mg PO BID #60 tablet 03/14/19 07/19/19 Unknown Rx Colchicine 0.6 mg PO QDAY #10 capsule 03/21/19 07/19/19 07/17/19 Rx Nicotine [Habitrol] 14 mg TD QDAY #30 patch 03/21/19 07/19/19 07/19/19 15:53 Rx predniSONE [Deltasone] 20 mg PO QDAY #7 tablet 03/21/19 07/19/19 07/17/19 Rx Digoxin [Lanoxin] 0.25 mg PO DAILY@1700 #30 tablet 05/05/19 07/19/19 07/18/19 Rx Acetaminophen [Acetaminophen TAB] 2 tab PO Q4H PRN #15 tablet 06/25/19 07/19/19 07/19/19 15:58 Rx Metoprolol [Lopressor TAB] 75 mg PO TID #90 tablet 06/25/19 07/19/19 07/19/19 15:53 Rx Oxycodone HCl/Acetaminophen 1 each PO Q6HR PRN #20 tablet 06/25/19 07/19/19 07/16/19 Rx [Percocet 10/325 mg] Sodium Bicarbonate 1,300 mg PO BID #90 tablet 06/25/19 07/19/19 07/19/19 15:53 Rx Torsemide [Demadex] 100 mg PO DAILY@0600 #30 tablet 06/25/19 07/19/19 Unknown Rx Active Meds: Active Medications Acetaminophen (Tylenol) 650 mg PO Q4H PRN PRN Reason: Pain MILD(1-3)/Fever >100.5/TRUJILLO Last Admin: 07/19/19 08:21 Dose: 650 mg Documented by: Albuterol/Ipratropium (Duoneb *Not For Prn Use*) 1 ampul IH TIDRT [facility] Aspirin (Ecotrin) 325 mg PO QDAY [facility] Atorvastatin Calcium (Lipitor) 40 mg PO QHS [facility] Dextrose (D50w (25gm) Syringe) 0 ml IV Q30MIN PRN; Protocol PRN Reason: Hypoglycemia Digoxin (Lanoxin) 0.25 mg PO DAILY@1700 [facility] Docusate Sodium (Colace) 100 mg PO BID [facility] Last Admin: 07/19/19 09:58 Dose: 100 mg Documented by: Furosemide (Lasix) 40 mg IV BID@0600,1800 [facility] Last Admin: 07/19/19 06:23 Dose: 40 mg Documented by: Insulin Human Regular (Humulin R) 0 units SUB-Q ACHS [facility]; Protocol Last Admin: 07/19/19 13:20 Dose: Not Given Documented by: Magnesium Hydroxide (Milk Of Magnesia) 30 ml PO Q4H PRN PRN Reason: Constipation Metoprolol Tartrate (Metoprolol) 50 mg PO TID [facility] Last Admin: 07/19/19 14:14 Dose: 50 mg Documented by: Metoprolol Tartrate (Metoprolol) 25 mg PO TID [facility] Last Admin: 07/19/19 14:14 Dose: 25 mg Documented by: Morphine Sulfate (Morphine) 2 mg IV Q4H PRN PRN Reason: Pain, Moderate (4-6) Last Admin: 07/19/19 15:50 Dose: 2 mg Documented by: Morphine Sulfate (Morphine) 2 mg IV Q5MIN PRN PRN Reason: Chest Pain unrelieved by NTG Nicotine (Habitrol) 14 mg TD QDAY [facility] Last Admin: 07/19/19 09:58 Dose: 14 mg Documented by: Nitroglycerin (Nitrostat) 0.4 mg SL Q5M PRN PRN Reason: Chest Pain Ondansetron HCl (Zofran) 4 mg IV Q8H PRN PRN Reason: Nausea And Vomiting Prednisone (Deltasone) 20 mg PO QDAY [facility] Last Admin: 07/19/19 09:58 Dose: 20 mg Documented by: Sodium Bicarbonate (Sodium Bicarbonate) 1,300 mg PO BID [facility] Last Admin: 07/19/19 10:06 Dose: 1,300 mg Documented by: Sodium Chloride (Sodium Chloride Flush Syringe 10 Ml) 10 ml IV BID [facility] Last Admin: 07/19/19 09:59 Dose: 10 ml Documented by: Sodium Chloride (Sodium Chloride Flush Syringe 10 Ml) 10 ml IV PRN PRN PRN Reason: LINE FLUSH Last Admin: 07/19/19 06:23 Dose: 10 ml Documented by: Review of Systems All systems: negative (see HPI) Exam - Constitutional Vitals: Temp Pulse Resp BP Pulse Ox 98.6 F 86 19 109/90 98 07/19/19 03:24 07/19/19 14:14 07/19/19 11:40 07/19/19 14:14 07/19/19 11:40 General appearance: Present: no acute distress - EENT Eyes: Present: EOM intact ENT: hearing intact - Respiratory Respiratory effort: normal - Extremities Extremities: normal temperature, normal color, abnormal (palpable dorsalis pedis arteries bilaterally, nonpalpable posterior tibial arteries bilaterally, left ankle ulcer, 2+ edema of the left lower extremity) - Psychiatric Psychiatric: appropriate mood/affect, cooperative Results - Labs CBC & Chem 7: 07/19/19 02:09 07/19/19 02:09 Labs: Abnormal lab results 07/18/19 07/18/19 07/18/19 Range/Units 23:33 23:33 23:33 Hgb 11.5 L (11.8-15.2) gm/dl Hct 34.9 L (35.5-45.6) % RDW 19.4 H (13.2-15.2) % Brown % (Auto) 14.8 H (0.0-7.3) % Lymph # 0.8 L (1.2-5.4) K/mm3 PT 16.1 H (12.2-14.9) Sec. INR 1.31 H (0.87-1.13) Sodium 135 L (137-145) mmol/L Carbon Dioxide 17 L (22-30) mmol/L BUN 22 H (9-20) mg/dL Creatinine (0.8-1.5) mg/dL Glucose (75-100) mg/dL Digoxin (0.9-2.0) ng/mL 07/19/19 07/19/19 07/19/19 Range/Units 02:09 02:09 10:08 Hgb (11.8-15.2) gm/dl Hct (35.5-45.6) % RDW 19.9 H (13.2-15.2) % Brown % (Auto) 13.8 H (0.0-7.3) % Lymph # (1.2-5.4) K/mm3 PT (12.2-14.9) Sec. INR (0.87-1.13) Sodium (137-145) mmol/L Carbon Dioxide 18 L (22-30) mmol/L BUN 23 H (9-20) mg/dL Creatinine 1.6 H (0.8-1.5) mg/dL Glucose 101 H (75-100) mg/dL Digoxin 0.3 L (0.9-2.0) ng/mL Assessment and Plan 54-year-old male with congestive heart failure and right-sided recurrent effusion who presents with left lower extremity nonhealing ulceration. Patient has palpable dorsalis pedis arteries, but nonpalpable posterior tibial arteries. Based on history of recurrent ulcerations with interval healing, and a palpable dorsalis pedis pulse, I suspect he has adequate blood flow to heal. The patient clearly has a venous component of his left lower extremity ulceration. He will require outpatient venous insufficiency ultrasound and possible endovenous closure. He may need evaluation of his deep system given the left lower extremity ulceration, history of DVT, and swelling, left side more than right.
[2019-07-19] MEDS: DIGOXIN 0.25 MG TAB PO SCH (17:31)
--- NOTE | 2019-07-19 19:23 | Vascular Lab Report ---
DUPLEX DOPPLER LOWER EXTREMITY ARTERIAL, BILATERAL INDICATION / CLINICAL INFORMATION: Poor pulses. Left foot ulcer. History of diabetes. TECHNIQUE: Arterial duplex examination of both lower extremities performed using B-mode, color flow and spectral Doppler assessment. FINDINGS: RIGHT: Common Femoral Artery: PSV 61.5 cm/sec. Triphasic waveform. Proximal SFA: PSV 70.6 cm/sec. Triphasic waveform. Mid SFA: PSV 69.4 cm/sec. Triphasic waveform. Distal SFA: PSV 91.3 cm/sec. Triphasic waveform. Popliteal artery: PSV 61.7 cm/sec. Triphasic waveform. Posterior tibial artery: PSV 47.6 cm/sec. Biphasic waveform. Dorsalis Pedis Artery: PSV 34.2 cm/sec. Triphasic waveform. LEFT: Common Femoral Artery: PSV 70.6 cm/sec. Triphasic waveform. Proximal SFA: PSV 53.8 cm/sec. Triphasic waveform. Mid SFA: PSV 74.0 cm/sec. Triphasic waveform. Distal SFA: PSV 75.8 cm/sec. Triphasic waveform. Popliteal artery: PSV 89.3 cm/sec. Triphasic waveform. Posterior tibial artery: PSV 63.6 cm/sec. Biphasic waveform. Dorsalis Pedis Artery: PSV 34.2 cm/sec. Triphasic waveform. IMPRESSION: No significant lower extremity peripheral artery disease. Ankle-Brachial Index (ÁNGEL): - Calcified arteries > 1.4 - Normal = 0.9-1.4 - Mild PAD = 0.7-0.89 - Moderate PAD = 0.51-0.69 - Severe PAD < 0.5 Doppler Waveform: - Triphasic is normal. - Biphasic is abnormal if clear transition from triphasic signal along vascular tree. - Monophasic is abnormal. Signer Name: Memo Giraldo MD Signed: 07/19/2019 7:19 PM Workstation Name: [id number]
--- NOTE | 2019-07-19 20:54 | Vascular Lab Report ---
DUPLEX DOPPLER LOWER EXTREMITY VEINS, LEFT INDICATION: Left leg swelling. TECHNIQUE: Duplex doppler imaging was performed through the veins of the left lower extremity using venous compr ession and other maneuvers. COMPARISON: None available. FINDINGS: Common femoral vein: Negative. Superficial femoral vein: Negative. Popliteal vein: Negative. Calf veins: Negative. Additional findings: There is no evidence of a popliteal cyst or other abnormality. IMPRESSION: No sonographic evidence for DVT in the left lower extremity. Signer Name: Memo Giraldo MD Signed: 07/19/2019 8:49 PM Workstation Name: [id number]
[2019-07-19] MEDS: IPRATROPIUM/ALBUTEROL SULFATE 3 ML AMPUL.NEB IH SCH (21:19)
[2019-07-20] MEDS: FUROSEMIDE 40 MG/4 ML INJ IV SCH ×2 (06:22→17:49)
[2019-07-20] MEDS: MORPHINE 2 MG/1 ML INJ IV PRN ×3 (06:54→20:11)
[2019-07-20] MEDS: INSULIN REGULAR, HUMAN 100 UNITS/1 ML SUB-Q SCH (08:19)
[2019-07-20] MEDS: METOPROLOL TARTRATE 50 MG TAB PO SCH ×3 (08:45→20:47)
[2019-07-20] MEDS: METOPROLOL TARTRATE 25 MG TAB PO SCH ×3 (08:59→20:48)
[2019-07-20 09:11] LABS: Basophils % (Auto) 0.3 % (0.0-1.8); Hematocrit 39.6 % (35.5-45.6); Hemoglobin 12.7 gm/dl (11.8-15.2); Lymphocytes # (Auto) 0.9 K/mm3 (1.2-5.4); Lymphocytes % (Auto) 12.2 % (13.4-35.0); Mean Corpuscular HGB Conc 32 % (32-34); Mean Corpuscular Volume 91 fl (84-94); Monocytes # (Auto) 0.7 K/mm3 (0.0-0.8); Monocytes % (Auto) 9.9 % (0.0-7.3); Platelet Count 184 K/mm3 (140-440); Red Blood Count 4.36 M/mm3 (3.65-5.03); Red Cell Distribution Width 19.3 % (13.2-15.2)
[2019-07-20] MEDS: IPRATROPIUM/ALBUTEROL SULFATE 3 ML AMPUL.NEB IH SCH ×4 (09:17→20:00)
[2019-07-20 09:24] LABS: INR 1.73 (0.87-1.13)
[2019-07-20 09:28] LABS: Calcium 8.6 mg/dL (8.4-10.2)
[2019-07-20 09:33] LABS: Partial Thromboplastin Time 38.3 Sec. (24.2-36.6)
--- NOTE | 2019-07-20 10:36 | Progress Note ---
Assessment and Plan Recurrent Pleural effusion Chronic systolic heart failure Acute renal failure Chronic atrial fibrillation on Eliquis for oral anticoagulation as an outpatient; currently held for planned thoracentesis rate controlled with metoprolol and digoxin Hx of Nonischemic cardiomyopathy EF 15-20% by echo 11/2018 Presence of the ICD recent interrogation revealed a normal functioning device Essential hypertension Type 2 diabetes mellitus Chronic obstructive pulmonary disease Noncompliant with outpatient follow ups. Recommendations: Daily weight. Fluid/sodium restriction. Continue medical therapy for chronic systolic heart failure and chronic atrial fibrillation. Subjective Date of service: 07/20/19 Interval history: Patient is resting in bed comfortably. No distress noted. Awaits for planned thoracentesis. Objective Vital Signs Temp Pulse Pulse Pulse Pulse Pulse Resp 07/20/19 09:19 07/20/19 08:59 92 H 07/20/19 08:00 86 07/20/19 03:49 97.4 F L 86 18 07/20/19 02:00 73 25 H 07/19/19 23:19 97.5 F L 83 18 07/19/19 21:31 07/19/19 21:26 84 07/19/19 19:45 97.9 F 74 18 07/19/19 17:31 84 07/19/19 17:00 98.2 F 84 24 07/19/19 16:50 07/19/19 15:21 63 07/19/19 14:14 86 07/19/19 14:13 82 07/19/19 12:06 75 07/19/19 12:00 98 F 71 19 07/19/19 11:40 66 66 66 19 Resp BP BP Pulse Ox 07/20/19 09:19 96 07/20/19 08:59 112/77 07/20/19 08:00 20 07/20/19 03:49 110/72 91 07/20/19 02:00 92 07/19/19 23:19 100/72 84 07/19/19 21:31 92 07/19/19 21:26 20 07/19/19 19:45 99/78 87 07/19/19 17:31 114/90 07/19/19 17:00 114/90 98 07/19/19 16:50 114/90 07/19/19 15:21 104/81 65 L 07/19/19 14:14 109/90 07/19/19 14:13 109/90 89 07/19/19 12:06 125/85 89 07/19/19 12:00 125/85 2 L 07/19/19 11:40 98 - Physical Examination General: No Apparent Distress HEENT: Positive: PERRL Neck: Positive: trachea midline Cardiac: Positive: irregularly irregular Lungs: Positive: Decreased Breath Sounds Neuro: Positive: Grossly Intact Extremities: Present: +1 Edema - Labs and Meds Coagulation 07/20/19 Range/Units 08:23 PT 20.0 H (12.2-14.9) Sec. INR 1.73 H (0.87-1.13) APTT 38.3 H (24.2-36.6) Sec. CBC 07/20/19 Range/Units 08:23 WBC 7.4 (4.5-11.0) K/mm3 RBC 4.36 (3.65-5.03) M/mm3 Hgb 12.7 (11.8-15.2) gm/dl Hct 39.6 (35.5-45.6) % Plt Count 184 (140-440) K/mm3 Lymph # 0.9 L (1.2-5.4) K/mm3 [place]son # 0.7 (0.0-0.8) K/mm3 Eos # 0.0 (0.0-0.4) K/mm3 Baso # 0.0 (0.0-0.1) K/mm3 Comprehensive Metabolic Panel 07/19/19 07/20/19 Range/Units 22:43 08:23 Sodium 136 L (137-145) mmol/L Potassium 4.8 (3.6-5.0) mmol/L Chloride 97.4 L (98-107) mmol/L Carbon Dioxide 18 L (22-30) mmol/L BUN 39 H (9-20) mg/dL Creatinine 2.4 H (0.8-1.5) mg/dL Glucose 46 L 151 H (75-100) mg/dL Calcium 8.6 (8.4-10.2) mg/dL
--- NOTE | 2019-07-20 10:41 | Procedure Note ---
Date of procedure: 07/20/19 Pre-op diagnosis: Right pleural effusion and dyspnea Post-op diagnosis: same Procedure: Ultrasound guided right sided thoracentesis. Findings: Please see report in PACS. Anesthesia: local Surgeon: WINSTON LYNN Estimated blood loss: none Pathology: list (Per primary team orders.) Specimen disposition: to lab Condition: stable Disposition: floor
--- NOTE | 2019-07-20 11:40 | Ultrasound Report ---
Ultrasound-guided thoracentesis HISTORY: Dyspnea, large right pleural effusion. COMPARISON: Chest x-ray from 07/18/2019 PROCEDURE: The risks (including but not limited to bleeding, infection, and pneumothorax) and benefi ts were explained to the patient and informed consent was obtained. A time out procedure was perform ed. Ultrasound was used to evaluate the right-sided pleural effusion and locate the optimal site for need le entry. Once the skin was marked, the procedure site was prepped and draped in the usual sterile f ashion and lidocaine was used for local anesthesia. A skin irvin was made and a 6-Yemeni thoracentesi s catheter was placed. The patient was monitored closely throughout the procedure, and a total of 21 00 mL of straw-colored fluid was aspirated. Samples were sent to the lab for further evaluation per the primary clinicians orders. The patient tolerated the procedure well with no complications. A post-procedure chest x-ray was imm ediately ordered. IMPRESSION: Successful thoracentesis as above with a total of 2100 mL of straw-colored fluid aspirate d. Signer Name: Steven Mendenhall MD Signed: 07/20/2019 11:35 AM Workstation Name: [id number]
[2019-07-20] MEDS: SODIUM BICARBONATE 650 MG TAB PO SCH ×2 (12:10→20:48)
[2019-07-20] MEDS: predniSONE 20 MG TAB PO SCH (12:10)
[2019-07-20] MEDS: ASPIRIN EC 325 MG TAB PO SCH (12:10)
[2019-07-20] MEDS: DOCUSATE SODIUM 100 MG CAP PO SCH ×3 (12:11→20:49)
[2019-07-20] MEDS: NICOTINE 14 MG/24 HR PATCH TD SCH (12:11)
--- NOTE | 2019-07-20 12:38 | XRay Report ---
CHEST 1 VIEW INDICATION: post thoracentesis. COMPARISON: Chest x-ray from 2 days prior FINDINGS: Support devices: Stable satisfactory device positioning. Heart: Stable cardiomegaly. Lungs/Pleura: Significantly improved aeration in the right lung with a small residual right-sided ple ural effusion. No pneumothorax. Left lung is clear. Additional findings: None. IMPRESSION: 1. Significantly improved exam with no pneumothorax. Signer Name: Steven Mendenhall MD Signed: 07/20/2019 12:34 PM Workstation Name: [id number]
--- NOTE | 2019-07-20 12:48 | Vascular Lab Report ---
DUPLEX DOPPLER LOWER EXTREMITY ARTERIAL, BILATERAL INDICATION: ulcer of LLE. TECHNIQUE: ÁNGEL measurements were obtained in both lower extremities. FINDINGS: Right ÁNGEL: 1.1. Left ÁNGEL: 0.8. IMPRESSION: 1. Mild peripheral arterial disease on the left. No significant disease on the right. Ankle-Brachial Index (ÁNGEL): * Calcified arteries > 1.4 * Normal = 0.9-1.4 * Mild PAD = 0.7-0.89 * Moderate PAD = 0.51-0.69 * Severe PAD < 0.5 Signer Name: Steven Mendenhall MD Signed: 07/20/2019 12:44 PM Workstation Name: [id number]
--- NOTE | 2019-07-20 14:20 | Progress Note ---
Assessment and Plan Large Right pleural effusion Atypical chest pain Tobacco use disorder/Nicotine dependence Acute on chronic systolic heart failure h/o chronic Respiratory failure Sleep apnea DM type 2 Anemia Left leg Diabetic Ulcer Metabolic acidosis ESTEVAN on CKD -ABG reordered -Supplemental oxygen to keep O2 sats>90%, as indicated -Resume Eliquis -Chronic COPD medications -Follow up pleural fluid studies, including cytology - Continue heart failure measures -Avoid nephrotoxins, monitor electrolytes and address as needed -Monitor hemodynamics closely -Continue on nocturnal BIPAP 08/06, back up rate 12, FIO2 30% -Management of atrial fibrillation per Cardiology -Accuchecks with glycemic control, avoid hypoglycemia -Smoking cessation counselling done for >5 minutes at bedside -Nicotine withdrawal precautions -Need for adherence to medical therapy encouraged -Influenza and pneumonia vaccination per protocol - Continue Wound care for left foot ulcer, being evaluated by vascular re PAD -Continue all supportive care Outpatient pulmonary follow up on discharge Discharge planning per primary service Subjective Date of service: 07/20/19 Interval history: Patient is seen today for: Dyspnea,; Large right pleural effusion: Tobacco use disorder: COPD; Sleep apnea Seen and examined at bedside; 24hour events reviewed; nursing and respiratory care staff consulted; no adverse overnight events reported to me; Vitals, labs, medications, chart reviewed. s/p Thoracentesis- feels better; was compliant with BIPAP overnight; denies any chest pain, no shortness of breath, no fevers or chills. Pain in the left foot Objective Vital Signs - 12hr 07/20/19 07/20/19 07/20/19 03:49 08:00 08:45 Temperature 97.4 F L Pulse Rate 86 92 H Pulse Rate [ 86 Anterior Bilateral Throughout] Respiratory 18 Rate Respiratory 20 Rate [Anterior Bilateral Throughout] Blood Pressure 110/72 112/77 Blood Pressure [Left] O2 Sat by Pulse 91 Oximetry 07/20/19 07/20/19 07/20/19 08:59 09:00 09:19 Temperature Pulse Rate 92 H 86 Pulse Rate [ Anterior Bilateral Throughout] Respiratory Rate Respiratory Rate [Anterior Bilateral Throughout] Blood Pressure 112/77 Blood Pressure [Left] O2 Sat by Pulse 96 Oximetry 07/20/19 07/20/19 11:00 11:57 Temperature Pulse Rate 82 Pulse Rate [ Anterior Bilateral Throughout] Respiratory 20 20 Rate Respiratory Rate [Anterior Bilateral Throughout] Blood Pressure Blood Pressure 111/78 [Left] O2 Sat by Pulse 95 95 Oximetry Constitutional: no acute distress, alert Eyes: non-icteric ENT: oropharynx moist Neck: supple, no lymphadenopathy, no JVD Effort: normal Ascultation: Bilateral: diminished breath sounds Cardiovascular: irregular rhythm, murmur noted, other (S1,S2 chest wall cardiac device) Gastrointestinal: normoactive bowel sounds, soft, non-tender, other (mild distension, non tender) Extremities: no cyanosis, cool (left foot ulcer) Neurologic: normal mental status, pupils equal and round, CN II-XII normal Psychiatric: mood appropriate, affect normal, depressed CBC and BMP: 07/20/19 08:23 07/20/19 08:23 ABG, PT/INR, D-dimer: PT/INR, D-dimer PT 20.0 Sec. (12.2-14.9) H 07/20/19 08:23 INR 1.73 (0.87-1.13) H 07/20/19 08:23 Abnormal lab findings: Abnormal Labs 07/18/19 07/18/19 07/18/19 23:33 23:33 23:33 Hgb 11.5 L Hct 34.9 L RDW 19.4 H Lymph % (Auto) Routt % (Auto) 14.8 H Lymph # 0.8 L Seg Neutrophils % PT 16.1 H INR 1.31 H APTT Sodium 135 L Chloride Carbon Dioxide 17 L BUN 22 H Creatinine Glucose POC Glucose Digoxin 07/19/19 07/19/19 07/19/19 02:09 02:09 10:08 Hgb Hct RDW 19.9 H Lymph % (Auto) [place] % (Auto) 13.8 H Lymph # Seg Neutrophils % PT INR APTT Sodium Chloride Carbon Dioxide 18 L BUN 23 H Creatinine 1.6 H Glucose 101 H POC Glucose Digoxin 0.3 L 07/19/19 07/19/19 07/19/19 16:33 22:30 22:43 Hgb Hct RDW Lymph % (Auto) [place]t % (Auto) Lymph # Seg Neutrophils % PT INR APTT Sodium Chloride Carbon Dioxide BUN Creatinine Glucose 46 L POC Glucose 50 L 45 L Digoxin 07/20/19 07/20/19 07/20/19 00:29 07:38 08:23 Hgb Hct RDW 19.3 H Lymph % (Auto) 12.2 L [place] % (Auto) 9.9 H Lymph # 0.9 L Seg Neutrophils % 77.6 H PT INR APTT Sodium Chloride Carbon Dioxide BUN Creatinine Glucose POC Glucose 66 L 155 H Digoxin 07/20/19 07/20/19 07/20/19 08:23 08:23 12:10 Hgb Hct RDW Lymph % (Auto) [place] % (Auto) Lymph # Seg Neutrophils % PT 20.0 H INR 1.73 H APTT 38.3 H Sodium 136 L Chloride 97.4 L Carbon Dioxide 18 L BUN 39 H Creatinine 2.4 H Glucose 151 H POC Glucose 148 H Digoxin Allied health notes reviewed: nursing
--- NOTE | 2019-07-20 16:27 | Progress Note ---
Assessment and Plan 54-year-old male with congestive heart failure and right-sided recurrent effusion who presents with left lower extremity nonhealing ulceration. Arterial studies are adequate for healing consistent with my assessment. Patient has a left lower extremity venous ulcer. No DVT. No chronic DVT. We'll provide SEVERIANO hose in the interim. Hopefully he will be able to tolerate them. Recommend leg elevation. Patient has left ankle pain out of proportion to what his pain should be. I suspect this is due to an exacerbation of his underlying venous insufficiency symptoms. His skin is not erythematous or warm but is cool. No obvious cellu litis. Recommend elevation in the interim. If this ultimately does not improve, consider MRI of the ankle to exclude underlying infection, but I believe this is low probability. Subjective Date of service: 07/20/19 Interval history: Venous ulcer of the left lower extremity and swelling of the left ankle are quite tender, but not erythematous. Swelling of the left lower extremity greater than the right lower extremity. Palpable dorsalis pedis pulses. Would not allow me to palpate his left posterior tibial pulses due to pain of his ankle. Objective - Constitutional Vitals: Vital Signs - 12hr 07/20/19 07/20/19 07/20/19 08:00 08:45 08:59 Pulse Rate 92 H 92 H Pulse Rate [ 86 Anterior Bilateral Throughout] Respiratory Rate Respiratory 20 Rate [Anterior Bilateral Throughout] Blood Pressure 112/77 112/77 Blood Pressure [Left] O2 Sat by Pulse Oximetry 07/20/19 07/20/19 07/20/19 09:00 09:19 11:00 Pulse Rate 86 Pulse Rate [ Anterior Bilateral Throughout] Respiratory 20 Rate Respiratory Rate [Anterior Bilateral Throughout] Blood Pressure Blood Pressure [Left] O2 Sat by Pulse 96 95 Oximetry 07/20/19 07/20/19 07/20/19 11:57 14:00 14:47 Pulse Rate 82 90 Pulse Rate [ 86 Anterior Bilateral Throughout] Respiratory 20 Rate Respiratory 20 Rate [Anterior Bilateral Throughout] Blood Pressure 110/64 Blood Pressure 111/78 [Left] O2 Sat by Pulse 95 Oximetry 07/20/19 14:54 Pulse Rate Pulse Rate [ 86 Anterior Bilateral Throughout] Respiratory Rate Respiratory 20 Rate [Anterior Bilateral Throughout] Blood Pressure Blood Pressure [Left] O2 Sat by Pulse Oximetry General appearance: Present: mild distress (left ankle pain) - EENT Eyes: EOM intact ENT: hearing intact - Respiratory Respiratory effort: normal Extremities: abnormal (see subjective) - Psychiatric Psychiatric: appropriate mood/affect, cooperative - Labs CBC & Chem 7: 07/20/19 08:23 07/20/19 08:23 Labs: Abnormal lab results 07/19/19 07/19/19 07/19/19 Range/Units 16:33 22:30 22:43 RDW (13.2-15.2) % Lymph % (Auto) (13.4-35.0) % Mcduffie % (Auto) (0.0-7.3) % Lymph # (1.2-5.4) K/mm3 Seg Neutrophils % (40.0-70.0) % PT (12.2-14.9) Sec. INR (0.87-1.13) APTT (24.2-36.6) Sec. Sodium (137-145) mmol/L Chloride (98-107) mmol/L Carbon Dioxide (22-30) mmol/L BUN (9-20) mg/dL Creatinine (0.8-1.5) mg/dL Glucose 46 L (75-100) mg/dL POC Glucose 50 L 45 L (70-105) 07/20/19 07/20/19 07/20/19 Range/Units 00:29 07:38 08:23 RDW 19.3 H (13.2-15.2) % Lymph % (Auto) 12.2 L (13.4-35.0) % Mcduffie % (Auto) 9.9 H (0.0-7.3) % Lymph # 0.9 L (1.2-5.4) K/mm3 Seg Neutrophils % 77.6 H (40.0-70.0) % PT (12.2-14.9) Sec. INR (0.87-1.13) APTT (24.2-36.6) Sec. Sodium (137-145) mmol/L Chloride (98-107) mmol/L Carbon Dioxide (22-30) mmol/L BUN (9-20) mg/dL Creatinine (0.8-1.5) mg/dL Glucose (75-100) mg/dL POC Glucose 66 L 155 H (70-105) 07/20/19 07/20/19 07/20/19 Range/Units 08:23 08:23 12:10 RDW (13.2-15.2) % Lymph % (Auto) (13.4-35.0) % Mcduffie % (Auto) (0.0-7.3) % Lymph # (1.2-5.4) K/mm3 Seg Neutrophils % (40.0-70.0) % PT 20.0 H (12.2-14.9) Sec. INR 1.73 H (0.87-1.13) APTT 38.3 H (24.2-36.6) Sec. Sodium 136 L (137-145) mmol/L Chloride 97.4 L (98-107) mmol/L Carbon Dioxide 18 L (22-30) mmol/L BUN 39 H (9-20) mg/dL Creatinine 2.4 H (0.8-1.5) mg/dL Glucose 151 H (75-100) mg/dL POC Glucose 148 H (70-105) Medications & Allergies - Medications Allergies/Adverse Reactions: Allergies Penicillins Allergy (Verified 03/05/19 22:41) Itching strawberry Allergy (Verified 03/05/19 22:41) Hives Home Medications: Home Medications Medication Instructions Recorded Confirmed Last Taken Type Apixaban [Eliquis] 1 tab PO BID #60 tablet 03/14/19 07/19/19 07/17/19 Rx Aspirin [Aspirin BABY CHEW TAB] 81 mg PO QDAY #30 tab.chew 03/14/19 07/19/19 07/19/19 15:57 Rx AtorvaSTATin [Lipitor] 40 mg PO QHS #30 tablet 03/14/19 07/19/19 07/19/19 15:58 Rx guaiFENesin ER [Mucinex ER] 600 mg PO BID #60 tablet 03/14/19 07/19/19 Unknown Rx Colchicine 0.6 mg PO QDAY #10 capsule 03/21/19 07/19/19 07/17/19 Rx Nicotine [Habitrol] 14 mg TD QDAY #30 patch 03/21/19 07/19/19 07/19/19 15:53 Rx predniSONE [Deltasone] 20 mg PO QDAY #7 tablet 03/21/19 07/19/19 07/17/19 Rx Digoxin [Lanoxin] 0.25 mg PO DAILY@1700 #30 tablet 05/05/19 07/19/1907/18/19 Rx Acetaminophen [Acetaminophen TAB] 2 tab PO Q4H PRN #15 tablet 06/25/19 07/19/19 07/19/19 15:58 Rx Metoprolol [Lopressor TAB] 75 mg PO TID #90 tablet 06/25/19 07/19/19 07/19/19 15:53 Rx Oxycodone HCl/Acetaminophen 1 each PO Q6HR PRN #20 tablet 06/25/19 07/19/19 07/16/19 Rx [Percocet 10/325 mg] Sodium Bicarbonate 1,300 mg PO BID #90 tablet 06/25/19 07/19/19 07/19/19 15:53 Rx Torsemide [Demadex] 100 mg PO DAILY@0600 #30 tablet 06/25/19 07/19/19 Unknown Rx Active Medications: Generic Name Dose Route Start Last Admin Trade Name Freq PRN Reason Stop Dose Admin Acetaminophen 650 mg 07/19/19 01:38 07/19/19 08:21 Tylenol PO 650 mg Q4H PRN Administration Pain MILD(1-3)/Fever >100.5/TRUJILLO Albuterol/Ipratropium 1 ampul 07/19/19 20:00 07/20/19 16:17 Duoneb *Not For Prn Use* IH 1 ampul TIDRT SOUMYA Administration Aspirin 325 mg 07/20/19 10:00 07/20/19 12:10 Ecotrin PO 325 mg QDAY SOUMYA Administration Atorvastatin Calcium 40 mg 07/19/19 22:00 07/19/19 23:03 Lipitor PO 40 mg QHS SOUMYA Administration Dextrose 0 ml 07/19/19 03:00 07/19/19 23:01 D50w (25gm) Syringe IV 20 ml Q30MIN PRN Administration Hypoglycemia Protocol Digoxin 0.25 mg 07/19/19 17:00 07/19/19 17:31 Lanoxin PO 0.25 mg DAILY@1700 SOUMYA Administration Docusate Sodium 100 mg 07/19/19 10:00 07/20/19 12:17 Colace PO Not Given BID SOUMYA Furosemide 40 mg 07/19/19 06:00 07/20/19 06:22 Lasix IV 40 mg BID@0600,1800 SOUMYA Administration Magnesium Hydroxide 30 ml 07/19/19 01:38 Milk Of Magnesia PO Q4H PRN Constipation Metoprolol Tartrate 50 mg 07/19/19 08:00 07/20/19 14:47 Metoprolol PO 50 mg TID SOUMYA Administration Metoprolol Tartrate 25 mg 07/19/19 08:00 07/20/19 14:47 Metoprolol PO 25 mg TID SOUMYA Administration Morphine Sulfate 2 mg 07/19/19 01:38 07/20/19 12:13 Morphine IV 2 mg Q4H PRN Administration Pain, Moderate (4-6) Morphine Sulfate 2 mg 07/19/19 01:38 Morphine IV Q5MIN PRN Chest Pain unrelieved by NTG Nicotine 14 mg 07/19/19 10:00 07/20/19 12:11 Habitrol TD Not Given QDAY [facility] Nitroglycerin 0.4 mg 07/19/19 01:38 Nitrostat SL Q5M PRN Chest Pain Ondansetron HCl 4 mg 07/19/19 01:38 Zofran IV Q8H PRN Nausea And Vomiting Prednisone 20 mg 07/19/19 10:00 07/20/19 12:10 Deltasone PO 20 mg QDAY SOUMYA Administration Sodium Bicarbonate 1,300 mg 07/19/19 10:00 07/20/19 12:10 Sodium Bicarbonate PO 1,300 mg BID SOUMYA Administration Sodium Chloride 10 ml 07/19/19 10:00 07/20/19 12:11 Sodium Chloride Flush Syringe 10 Ml IV 10 ml BID SOUMYA Administration Sodium Chloride 10 ml 07/19/19 01:38 07/20/19 06:55 Sodium Chloride Flush Syringe 10 Ml IV 10 ml PRN PRN Administration LINE FLUSH
--- NOTE | 2019-07-20 16:56 | Progress Note ---
Assessment and Plan Assessment and plan: Patient is a 54-year-old male with known history of A. fib, history of CVA in the past, asthma, sleep apnea COPD, CHF, history of A. fib currently on Eliquis for anticoagulation presenting to the emergency room today complaining of left- sided chest pain. Chest pain has been intermittent all day and is worse on movement. There is no no relieving or exacerbating factor was given some aspirin and sublingual nitroglycerin in route to the hospital without any significant improvement. Patient indicates that he has been having increasing shortness of breath over the past few days he also had what appeared to be a syncopal episode about 2 days ago. Indicates he lost consciousness for a few hours prior to arrival of his granddaughter found him on the floor. Was light headed prior to the syncope. He denies any headache and denies any neck pain. Patient was admitted in the hospital sometime last month for volume overload. He had a large right pleural effusion and had thoracentesis performed on June 23 and was supposed to follow-up with the consultant nurse on outpatient basis. Patient has not been able to to have any follow-up. His work-up today in the emergency room reveals recurrence of the right sided pleural effusion. (1) Recurrent right pleural effusion Current Visit: Yes Status: Acute Plan to address problem: [employer] has been consulted for evaluation. Patient had thoracentesis done about a month ago and was supposed to follow-up with consultant nurse on outpatient basis. He has not been able to make a follow- up appointment. (2) Syncope Current Visit: Yes Status: Acute Plan to address problem: Etiology is unclear. We will follow-up with echocardiogram. (3) Ulcer of left ankle Current Visit: Yes Status: Acute Plan to address problem: We will place a consult to wound care team for evaluation of left ankle wound. (4) Chest pain Current Visit: No Status: Acute Qualifiers: Chest pain type: unspecified Qualified Code(s): R07.9 - Chest pain, unspecified Plan to address problem: We will check serial cardiac enzymes. We will request cardiology evaluation in the a.m. We will trend cardiac enzymes (5) DVT prophylaxis Current Visit: No Status: Acute Plan to address problem: Patient currently on anticoagulation. (6) Diabetes Current Visit: No Status: Acute Plan to address problem: We will monitor Accu-Cheks and continue routine home medications (7) HTN (hypertension) Current Visit: No Status: Acute Qualifiers: Hypertension type: essential hypertension Qualified Code(s): I10 - Essential (primary) hypertension Plan to address problem: Blood pressure stable will continue routine home medication monitor vital signs closely (8) Full code status Current Visit: Yes Status: Acute History Interval history: Patient was seen and examined. Follow-up on current diagnosis. No overnight events reported to me. Patient denies any chest pain, shortness breath, nausea/vomiting or severe headaches. Imaging, nursing note, chart, labs and old chart reviewed. Discussed with patient. Hospitalist Physical - Physical exam Narrative exam: Gen: WDWN, NAD, Awake, Alert, Orientated HEENT: NCAT, EOMI, PERRL, OP Clear Neck: supple, no adenopathy, no thyromegaly, no JVD CVS/Heart: RRR, normal S1S2, pulses present bilaterally Chest/Lungs: right diminished at base, Symmetrical chest expansion, good air entry bilaterally GI/Abdomen: soft, NTND, good bowel sounds, no guarding or rebound /Bladder: no suprapubic tenderness, no CVA or paraspinal tenderness Extermity/Skin: no c/c/e, no obvious rash MSK: FROM x 4 Neuro: CN 2-12 grossly intact, no new focal deficits Psych: calm - Constitutional Vitals: Temp Pulse Resp BP Pulse Ox 97.4 F L 86 20 110/64 95 07/20/19 03:49 07/20/19 14:54 07/20/19 14:54 07/20/19 14:47 07/20/19 11:57 General appearance: Present: mild distress (left ankle pain) Results - Labs CBC & Chem 7: 07/20/19 08:23 07/20/19 08:23 Labs: Laboratory Last Values WBC 7.4 K/mm3 (4.5-11.0) 07/20/19 08:23 RBC 4.36 M/mm3 (3.65-5.03) 07/20/19 08:23 Hgb 12.7 gm/dl (11.8-15.2) 07/20/19 08:23 Hct 39.6 % (35.5-45.6) 07/20/19 08:23 MCV 91 fl (84-94) 07/20/19 08:23 MCH 29 pg (28-32) 07/20/19 08:23 MCHC 32 % (32-34) 07/20/19 08:23 RDW 19.3 % (13.2-15.2) H 07/20/19 08:23 Plt Count 184 K/mm3 (140-440) 07/20/19 08:23 Lymph % (Auto) 12.2 % (13.4-35.0) L 07/20/19 08:23 Armstrong % (Auto) 9.9 % (0.0-7.3) H 07/20/19 08:23 Eos % (Auto) 0.0 % (0.0-4.3) 07/20/19 08:23 Baso % (Auto) 0.3 % (0.0-1.8) 07/20/19 08:23 Lymph # 0.9 K/mm3 (1.2-5.4) L 07/20/19 08:23 Armstrong # 0.7 K/mm3 (0.0-0.8) 07/20/19 08:23 Eos # 0.0 K/mm3 (0.0-0.4) 07/20/19 08:23 Baso # 0.0 K/mm3 (0.0-0.1) 07/20/19 08:23 Seg Neutrophils % 77.6 % (40.0-70.0) H 07/20/19 08:23 Seg Neutrophils # 5.7 K/mm3 (1.8-7.7) 07/20/19 08:23 PT 20.0 Sec. (12.2-14.9) H 07/20/19 08:23 INR 1.73 (0.87-1.13) H 07/20/19 08:23 APTT 38.3 Sec. (24.2-36.6) H 07/20/19 08:23 Sodium 136 mmol/L (137-145) L 07/20/19 08:23 Potassium 4.8 mmol/L (3.6-5.0) 07/20/19 08:23 Chloride 97.4 mmol/L (98-107) L 07/20/19 08:23 Carbon Dioxide 18 mmol/L (22-30) L 07/20/19 08:23 Anion Gap 25 mmol/L 07/20/19 08:23 BUN 39 mg/dL (9-20) H 07/20/19 08:23 Creatinine 2.4 mg/dL (0.8-1.5) H 07/20/19 08:23 Estimated GFR 34 ml/min 07/20/19 08:23 BUN/Creatinine Ratio 16 % 07/20/19 08:23 Glucose 151 mg/dL (75-100) H 07/20/19 08:23 POC Glucose 148 (70-105) H 07/20/19 12:10 Calcium 8.6 mg/dL (8.4-10.2) 07/20/19 08:23 Troponin T 0.018 ng/mL (0.00-0.029) 07/19/19 07:35 Troponin T 0.020 ng/mL (0.00-0.029) 07/19/19 07:35 Digoxin 0.3 ng/mL (0.9-2.0) L 07/19/19 10:08 Active Medications - Current Medications Current Medications: Generic Name Dose Route Start Last Admin Trade Name Freq PRN Reason Stop Dose Admin Acetaminophen 650 mg 07/19/19 01:38 07/19/19 08:21 Tylenol PO 650 mg Q4H PRN Administration Pain MILD(1-3)/Fever >100.5/TRUJILLO Albuterol/Ipratropium 1 ampul 07/19/19 20:00 07/20/19 16:17 Duoneb *Not For Prn Use* IH 1 ampul TIDRT SOUMYA Administration Aspirin 325 mg 07/20/19 10:00 07/20/19 12:10 Ecotrin PO 325 mg QDAY SOUMYA Administration Atorvastatin Calcium 40 mg 07/19/19 22:00 07/19/19 23:03 Lipitor PO 40 mg QHS SOUMYA Administration Dextrose 0 ml 07/19/19 03:00 07/19/19 23:01 D50w (25gm) Syringe IV 20 ml Q30MIN PRN Administration Hypoglycemia Protocol Digoxin 0.25 mg 07/19/19 17:00 07/19/19 17:31 Lanoxin PO 0.25 mg DAILY@1700 SOUMYA Administration Docusate Sodium 100 mg 07/19/19 10:00 07/20/19 12:17 Colace PO Not Given BID SOUMYA Furosemide 40 mg 07/19/19 06:00 07/20/19 06:22 Lasix IV 40 mg BID@0600,1800 SOUMYA Administration Magnesium Hydroxide 30 ml 07/19/19 01:38 Milk Of Magnesia PO Q4H PRN Constipation Metoprolol Tartrate 50 mg 07/19/19 08:00 07/20/19 14:47 Metoprolol PO 50 mg TID SOUMYA Administration Metoprolol Tartrate 25 mg 07/19/19 08:00 07/20/19 14:47 Metoprolol PO 25 mg TID SOUMYA Administration Morphine Sulfate 2 mg 07/19/19 01:38 07/20/19 12:13 Morphine IV 2 mg Q4H PRN Administration Pain, Moderate (4-6) Morphine Sulfate 2 mg 07/19/19 01:38 Morphine IV Q5MIN PRN Chest Pain unrelieved by NTG Nicotine 14 mg 07/19/19 10:00 07/20/19 12:11 Habitrol TD Not Given QDAY [facility] Nitroglycerin 0.4 mg 07/19/19 01:38 Nitrostat SL Q5M PRN Chest Pain Ondansetron HCl 4 mg 07/19/19 01:38 Zofran IV Q8H PRN Nausea And Vomiting Prednisone 20 mg 07/19/19 10:00 07/20/19 12:10 Deltasone PO 20 mg QDAY SOUMYA Administration Sodium Bicarbonate 1,300 mg 07/19/19 10:00 07/20/19 12:10 Sodium Bicarbonate PO 1,300 mg BID SOUMYA Administration Sodium Chloride 10 ml 07/19/19 10:00 07/20/19 12:11 Sodium Chloride Flush Syringe 10 Ml IV 10 ml BID SOUMYA Administration Sodium Chloride 10 ml 07/19/19 01:38 07/20/19 06:55 Sodium Chloride Flush Syringe 10 Ml IV 10 ml PRN PRN Administration LINE FLUSH Nutrition/Malnutrition Assess - Dietary Evaluation Nutrition/Malnutrition Findings: Nutrition Notes Start: 07/20/19 12:59 Freq: Status: Active Protocol: Document 07/20/19 12:59 CT (Rec: 07/20/19 13:25 CT [id number]) Co-Sign 07/20/19 12:59 LM Nutrition Notes Need for Assessment generated from: MD Order,Education Initial or Follow up Assessment Current Diagnosis COPD,Diabetes,Hypertension, Heart Failure Other Pertinent Diagnosis Stage 3 Wound, A-fib, Hx of CVA, Asthma, Sleep Apnea, Bilat Edema Current Diet Cardiac/Consistent CHO Labs/Tests POC Glu 155 Pertinent Medications Lipitor Melecio Moreland Height 6 ft 1 in Weight 82.4 kg [place] Body Weight (kg) 83.63 BMI 23.9 Intake Prior to Admission Poor Weight change and time frame Pt stated 15 lb wt loss in the last week and a half, unsure of UBW 7.6% wt loss in >1 week possible d/t edema Weight Status Appropriate Subjective/Other Information Consult for diet education. Pt was sleeping at time of visit but easily aroused. Pt stated that he has not been eating for the last 4 days. Pt was NPO for a thoracentesis this am. Pt is now on a cardiac/consistent CHO diet, and has not had any prior education on this diet. Pt refused education but accepted the handout given, and asked for RD to come back later to give education. Pt is allergic to strawberries. Noted edema in the feet/ankles and slight temporal wasting. Pt has 4+ pitting edema. Burn Absent Trauma Absent GI Symptoms None Food Allergy Yes Current % PO Negligible Minimum of two criteria Yes Energy Intake (severe) < or equal to 50% Estimated Energy Requirement > or equal to 5 days Interpretation of Weight Loss (severe) >2% in 1 week Muscle Mass Mild Depletion (non-severe) Fluid Accumulation Moderate to Severe (severe) #3 Nutrition Diagnosis Increased nutrient needs ( specify in comment below) Comments: Protein Etiology wound healing As Evidenced by Signs and Symptoms stage 3 wound #2 Nutrition Diagnosis Food and nutrition-related knowledge deficit Etiology no prior knowledge of cardiac/ consistent CHO diet As Evidenced by Signs and Symptoms pt refusal of education but acceptance of handout #1 Nutrition Diagnosis Malnutrition Etiology secondary to chronic comorbidities As Evidenced by Signs and Symptoms >2% wt loss in one week, severe edema, mild temporal wasting, and <50% estimated energy requirement in the last 5 days Is patient on ventilator? No Is Patient Ambulatory and/or Out of Bed Yes REE-([facility]-ambulatory/OOB) [ [id number] [id number]] Calculation Used for Recommendations [facility] Additional Notes Protein needs: 99-124 g/day (1 .2-1.5 g/kg/day) Fluid needs: 1360-6845 ml per day Nutrition Intervention Change Diet Order: Cardiac/Consistent CHO Teaching Recipient Patient Learning Readiness Poor Teaching Methods Demonstration,Handout Response to Teaching Refuses to learn Education Handouts Provided Heart Health CHO counting Barriers to Learning Cognitive/Verbal,Motivation RD phone number provided Yes Patient aware of follow up options Yes Goal #1 Meet >80% of energy and protein needs Anticipated Discharge Needs: Cardiac/Consistent CHO Follow-Up By: 07/22/19 Additional Comments Follow up for PO intake, need for ONS
[2019-07-20] MEDS: DIGOXIN 0.25 MG TAB PO SCH (17:50)
[2019-07-21] MEDS: ACETAMINOPHEN 325 MG TAB PO PRN ×3 (00:02→22:08)
[2019-07-21] MEDS: SODIUM BICARBONATE 650 MG TAB PO SCH ×3 (06:30→22:08)
[2019-07-21] MEDS: DOCUSATE SODIUM 100 MG CAP PO SCH ×3 (06:30→22:09)
[2019-07-21] MEDS: FUROSEMIDE 40 MG/4 ML INJ IV SCH (06:37)
[2019-07-21] MEDS: IPRATROPIUM/ALBUTEROL SULFATE 3 ML AMPUL.NEB IH SCH ×3 (08:30→20:05)
[2019-07-21] MEDS: METOPROLOL TARTRATE 25 MG TAB PO SCH ×3 (09:08→22:09)
[2019-07-21] MEDS: METOPROLOL TARTRATE 50 MG TAB PO SCH ×3 (09:08→22:08)
[2019-07-21] MEDS: predniSONE 20 MG TAB PO SCH (09:08)
[2019-07-21] MEDS: ASPIRIN EC 325 MG TAB PO SCH (09:08)
[2019-07-21] MEDS: NICOTINE 14 MG/24 HR PATCH TD SCH (09:09)
--- NOTE | 2019-07-21 11:41 | Progress Note ---
<JEANA HOLM - Last Filed: 07/21/19 11:40> Assessment and Plan Recurrent Pleural effusion Chronic systolic heart failure Acute renal failure LLE ulcer Chronic atrial fibrillation on Eliquis for oral anticoagulation as an outpatient; currently held for planned thoracentesis rate controlled with metoprolol and digoxin Hx of Nonischemic cardiomyopathy EF 15-20% by echo 11/2018 Presence of the ICD recent interrogation revealed a normal functioning device Essential hypertension Type 2 diabetes mellitus Chronic obstructive pulmonary disease Noncompliant with outpatient follow ups Recommendations: Daily weight. Fluid/sodium restriction. Continue medical therapy for chronic systolic heart failure and chronic atrial fibrillation. Patient is stable cardiac bennett. We will follow intermittently. Subjective Date of service: 07/21/19 Interval history: Patient is resting in bed comfortably. He complains of RLE pain. Afib with a well controlled ventricular rate on telemetry. Objective Vital Signs Temp Pulse Pulse Resp Resp BP BP 07/21/19 09:08 88 104/73 07/21/19 08:36 07/21/19 08:00 84 20 07/21/19 03:51 97.3 F L 59 L 18 95/67 07/21/19 00:02 20 07/20/19 23:34 07/20/19 23:17 97.5 F L 86 18 99/75 07/20/19 20:48 56 L 100/74 07/20/19 20:47 56 L 100/74 07/20/19 19:33 97.3 F L 56 L 18 100/74 07/20/19 17:50 88 110/64 07/20/19 16:23 98.2 F 18 88/65 07/20/19 14:54 86 20 07/20/19 14:47 90 110/64 07/20/19 14:00 86 20 07/20/19 11:57 82 20 111/78 Pulse Ox 07/21/19 09:08 07/21/19 08:36 94 07/21/19 08:00 07/21/19 03:51 89 07/21/19 00:02 07/20/19 23:34 95 07/20/19 23:17 89 07/20/19 20:48 07/20/19 20:47 07/20/19 19:33 97 07/20/19 17:50 07/20/19 16:23 07/20/19 14:54 07/20/19 14:47 07/20/19 14:00 07/20/19 11:57 95 - Physical Examination General: No Apparent Distress HEENT: Positive: PERRL Neck: Positive: trachea midline Cardiac: Positive: irregularly irregular Lungs: Positive: Decreased Breath Sounds Neuro: Positive: Grossly Intact Extremities: Absent: edema - Allied health notes Allied health notes reviewed: nursing <POLLY ESPINOZA - Last Filed: 07/24/19 10:39> Assessment and Plan I've seen and evaluated the patient and agree with the assessment and plan. Patient is presenting with recurrent pleural effusions, chronic systolic heart failure, acute renal failure, chronic atrial fibrillation rate controlled with AV john blockers and digoxin, and nonischemic cardiomyopathy with ejection fraction 15-20%. At this time recommend goal-directed medical therapy for treatment of nonischemic cardiomyopathy. Recommend daily weights and strict I's and O's. Recommend fluid and sodium restriction. Recommend continue medical therapy for treatment of atrial fibrillation with metoprolol and digoxin. Patient should be anticoagulated with Eliquis. Objective Vital Signs Temp Pulse Pulse Pulse Resp Resp Resp 07/24/19 10:00 92 H 92 H 07/24/19 09:11 98.3 F 61 18 07/24/19 06:39 86 07/24/19 05:49 18 07/24/19 04:14 97.6 F 07/24/19 04:13 83 18 07/23/19 23:46 97.5 F L 07/23/19 23:45 65 20 07/23/19 22:47 18 07/23/19 22:46 18 07/23/19 22:00 81 81 18 18 07/23/19 21:47 18 07/23/19 21:46 18 07/23/19 21:35 88 07/23/19 20:48 88 20 07/23/19 20:47 07/23/19 20:44 97.9 F 07/23/19 20:43 85 18 07/23/19 16:38 97.9 F 69 18 07/23/19 14:13 86 18 07/23/19 12:56 98.2 F 79 18 BP Pulse Ox 07/24/19 10:00 07/24/19 09:11 143/92 90 07/24/19 06:39 113/77 96 07/24/19 05:49 07/24/19 04:14 07/24/19 04:13 116/80 96 07/23/19 23:46 07/23/19 23:45 127/89 95 07/23/19 22:47 07/23/19 22:46 07/23/19 22:00 97 07/23/19 21:47 07/23/19 21:46 07/23/19 21:35 105/67 07/23/19 20:48 07/23/19 20:47 97 07/23/19 20:44 07/23/19 20:43 105/67 97 07/23/19 16:38 107/75 93 07/23/19 14:13 07/23/19 12:56 124/86 94 - Labs and Meds Comprehensive Metabolic Panel 07/24/19 Range/Units 05:20 Sodium 134 L (137-145) mmol/L Potassium 4.5 (3.6-5.0) mmol/L Chloride 95.8 L (98-107) mmol/L Carbon Dioxide 23 (22-30) mmol/L BUN 47 H (9-20) mg/dL Creatinine 1.6 H (0.8-1.5) mg/dL Glucose 133 H (75-100) mg/dL Calcium 8.3 L (8.4-10.2) mg/dL
--- NOTE | 2019-07-21 12:52 | Progress Note ---
Assessment and Plan Large Right pleural effusion Atypical chest pain Tobacco use disorder/Nicotine dependence Acute on chronic systolic heart failure h/o chronic Respiratory failure Sleep apnea DM type 2 Anemia Left leg Diabetic Ulcer Metabolic acidosis ESTEVAN on CKD - continue supplemental oxygen to keep O2 sats>90%, as indicated - Resumed Eliquis - continue bronchodilators (EMBER & LABA) with ICS fopr COPD - Follow up pleural fluid studies, including cytology - Continue heart failure measures - Avoid nephrotoxins, monitor electrolytes and address as needed - Monitor hemodynamics closely - Continue on nocturnal BIPAP 08/06, back up rate 12, FIO2 30% - Management of atrial fibrillation per Cardiology - continue accuchecks with glycemic control per SSI for target BG < 180 mg/dl (avoid hypoglycemia) - Smoking cessation counselling done for >5 minutes at bedside - Nicotine withdrawal precautions - Need for adherence to medical therapy encouraged - Influenza and pneumonia vaccination per protocol - Continue Wound care for left foot ulcer, being evaluated by vascular re PAD - Continue all supportive care - Outpatient pulmonary follow up on discharge - Discharge planning per primary service ... re-evaluate in am & prn Subjective Date of service: 07/21/19 Principal diagnosis: Dyspnea; Large right pleural effusion; Tobacco use d isorder; COPD; KAREN Interval history: Patient is seen today for: Dyspnea; Large right pleural effusion; Tobacco use disorder; COPD; Sleep apnea Seen and examined at bedside; 24hour events reviewed; nursing and respiratory care staff consulted; no adverse overnight events reported to me; resting peacefully in bed; feels better s/p thoracentesis; No hemoptysis; No N/V/F/C Objective Vital Signs - 12hr 07/21/19 07/21/19 07/21/19 03:51 08:00 08:36 Temperature 97.3 F L Pulse Rate 59 L Pulse Rate [ 84 Anterior Bilateral Throughout] Respiratory 18 Rate Respiratory 20 Rate [Anterior Bilateral Throughout] Blood Pressure 95/67 O2 Sat by Pulse 89 94 Oximetry 07/21/19 07/21/19 07/21/19 08:59 09:08 12:05 Temperature 98.6 F Pulse Rate 68 88 63 Pulse Rate [ Anterior Bilateral Throughout] Respiratory 18 Rate Respiratory Rate [Anterior Bilateral Throughout] Blood Pressure 104/73 104/73 96/68 O2 Sat by Pulse 94 91 Oximetry Constitutional: no acute distress, alert Eyes: non-icteric ENT: oropharynx moist Neck: supple, no lymphadenopathy, no JVD Effort: normal Ascultation: Right: rhonchi, Bilateral: diminished breath sounds, other (poor AE right lung ) Percussion: Right: dull (base) Cardiovascular: irregular rhythm, murmur noted, other (S1,S2 chest wall cardiac device) Gastrointestinal: normoactive bowel sounds, soft, non-tender, non-distended, other (mild distension, non tender) Integumentary: normal Extremities: no cyanosis, no edema, no ischemia or petechiae, other (left foot ulcer) Neurologic: normal mental status, pupils equal and round, CN II-XII normal Psychiatric: mood appropriate, affect normal CBC and BMP: 07/20/19 08:23 07/22/19 05:56 ABG, PT/INR, D-dimer: PT/INR, D-dimer PT 20.0 Sec. (12.2-14.9) H 07/20/19 08:23 INR 1.73 (0.87-1.13) H 07/20/19 08:23 Abnormal lab findings: Abnormal Labs 07/18/19 07/18/19 07/18/19 23:33 23:33 23:33 Hgb 11.5 L Hct 34.9 L RDW 19.4 H Lymph % (Auto) Barry % (Auto) 14.8 H Lymph # 0.8 L Seg Neutrophils % PT 16.1 H INR 1.31 H APTT Sodium 135 L Chloride Carbon Dioxide 17 L BUN 22 H Creatinine Glucose POC Glucose Digoxin 07/19/19 07/19/19 07/19/19 02:09 02:09 10:08 Hgb Hct RDW 19.9 H Lymph % (Auto) Barry % (Auto) 13.8 H Lymph # Seg Neutrophils % PT INR APTT Sodium Chloride Carbon Dioxide 18 L BUN 23 H Creatinine 1.6 H Glucose 101 H POC Glucose Digoxin 0.3 L 07/19/19 07/19/19 07/19/19 16:33 22:30 22:43 Hgb Hct RDW Lymph % (Auto) Barry % (Auto) Lymph # Seg Neutrophils % PT INR APTT Sodium Chloride Carbon Dioxide BUN Creatinine Glucose 46 L POC Glucose 50 L 45 L Digoxin 07/20/19 07/20/19 07/20/19 00:29 07:38 08:23 Hgb Hct RDW 19.3 H Lymph % (Auto) 12.2 L Barry % (Auto) 9.9 H Lymph # 0.9 L Seg Neutrophils % 77.6 H PT INR APTT Sodium Chloride Carbon Dioxide BUN Creatinine Glucose POC Glucose 66 L 155 H Digoxin 07/20/19 07/20/19 07/20/19 08:23 08:23 12:10 Hgb Hct RDW Lymph % (Auto) Barry % (Auto) Lymph # Seg Neutrophils % PT 20.0 H INR 1.73 H APTT 38.3 H Sodium 136 L Chloride 97.4 L Carbon Dioxide 18 L BUN 39 H Creatinine 2.4 H Glucose 151 H POC Glucose 148 H Digoxin 07/20/19 07/20/19 07/21/19 16:29 20:31 09:07 Hgb Hct RDW Lymph % (Auto) Barry % (Auto) Lymph # Seg Neutrophils % PT INR APTT Sodium Chloride Carbon Dioxide BUN Creatinine Glucose POC Glucose 137 H 167 H 128 H Digoxin 07/21/19 12:16 Hgb Hct RDW Lymph % (Auto) Barry % (Auto) Lymph # Seg Neutrophils % PT INR APTT Sodium Chloride Carbon Dioxide BUN Creatinine Glucose POC Glucose 169 H Digoxin Chest x-ray: image reviewed (residual right pleural effusion; AICD implant) Allied health notes reviewed: nursing
--- NOTE | 2019-07-21 16:35 | Progress Note ---
Assessment and Plan Assessment and plan: Patient is a 54-year-old man with a plethora of serious co-morbidities including Afib on Eliquis, CKD 3, CVA, KAREN, COPD, CHF EF 15-20%, hypertension and Recurrent right sided CHF related pleural effusion who presented to [facility] ED with SOB and chest pains. He was found to have a very large right pleural effusion and had thoracentesis performed 07/20/2019. He admits to not following up with lung doctors as instructed. Acute hypoxic respiratory failure, poa - continue supplemental O2 and Continue nocturnal BIPAP 08/06, back up rate 12, FIO2 30%, Pulm is following Recurrent right pleural effusion s/p thoracentesis, symptoms improved ARF on CKD 3, due to vasomotor nephropathy: stop iv lasix bid, consult nephrology and reviewed renal ultrasound on 06/2019 when Cr went up to 2.2 Syncope, vasovagal in nature: continue telemetry Chronic systolic heart failure with Hx of Nonischemic cardiomyopathy, EF 15-20% by echo 11/2018: continue AICD monitoring, Fluid/sodium restriction, Daily weight.. Presence of the ICD: recent interrogation revealed a normal functioning device Chronic nonhealing Ulcer of left ankle, DM related: local wound care therapy Chest pain, atypical, evaluate by Cardiology, most likely related to pleural effusion Chronic atrial fibrillation-on Eliquis for oral anticoagulation as an outpatient; rate controlled with metoprolol and digoxin, Resume Eliquis Essential hypertension: low salt diet, treat with antihypertensives Type 2 diabetes mellitus: ada diet, ssi, bmp Chronic obstructive pulmonary disease, continue nebs Noncompliant with outpatient follow ups: counseling done DVT prophylaxis-Patient currently on anticoagulation. full code Disposition: continue inpatient care, d/c once renal function improves History Interval history: Patient was seen and examined. Follow-up on current diagnosis of recurrent pleural effusion. No overnight events reported to me. Patient denies any chest pain, shortness breath, nausea/vomiting or severe headaches. Imaging, nursing note, chart, labs and old chart reviewed. Discussed with patient. Hospitalist Physical - Physical exam Narrative exam: Gen: thin chronically ill appearing, NAD, Awake, Alert, Orientated HEENT: NCAT, EOMI, PERRL, OP Clear Neck: supple, no adenopathy, no thyromegaly, no JVD CVS/Heart: irregular irregular, normal S1S2, pulses present bilaterally Chest/Lungs: right diminished at base, Symmetrical chest expansion, good air entry bilaterally GI/Abdomen: soft, NTND, good bowel sounds, no guarding or rebound /Bladder: no suprapubic tenderness, no CVA or paraspinal tenderness Extermity/Skin: no c/c/e, no obvious rash MSK: FROM x 4 Neuro: CN 2-12 grossly intact, no new focal deficits Psych: calm - Constitutional Vitals: Temp Pulse Resp BP Pulse Ox 98.6 F 78 20 100/73 91 07/21/19 12:05 07/21/19 15:00 07/21/19 14:00 07/21/19 15:00 07/21/19 12:05 General appearance: Absent: mild distress (left ankle pain) Results - Labs CBC & Chem 7: 07/20/19 08:23 07/20/19 08:23 Labs: Laboratory Last Values WBC 7.4 K/mm3 (4.5-11.0) 07/20/19 08:23 RBC 4.36 M/mm3 (3.65-5.03) 07/20/19 08:23 Hgb 12.7 gm/dl (11.8-15.2) 07/20/19 08:23 Hct 39.6 % (35.5-45.6) 07/20/19 08:23 MCV 91 fl (84-94) 07/20/19 08:23 MCH 29 pg (28-32) 07/20/19 08:23 MCHC 32 % (32-34) 07/20/19 08:23 RDW 19.3 % (13.2-15.2) H 07/20/19 08:23 Plt Count 184 K/mm3 (140-440) 07/20/19 08:23 Lymph % (Auto) 12.2 % (13.4-35.0) L 07/20/19 08:23 Mccormick % (Auto) 9.9 % (0.0-7.3) H 07/20/19 08:23 Eos % (Auto) 0.0 % (0.0-4.3) 07/20/19 08:23 Baso % (Auto) 0.3 % (0.0-1.8) 07/20/19 08:23 Lymph # 0.9 K/mm3 (1.2-5.4) L 07/20/19 08:23 Mccormick # 0.7 K/mm3 (0.0-0.8) 07/20/19 08:23 Eos # 0.0 K/mm3 (0.0-0.4) 07/20/19 08:23 Baso # 0.0 K/mm3 (0.0-0.1) 07/20/19 08:23 Seg Neutrophils % 77.6 % (40.0-70.0) H 07/20/19 08:23 Seg Neutrophils # 5.7 K/mm3 (1.8-7.7) 07/20/19 08:23 PT 20.0 Sec. (12.2-14.9) H 07/20/19 08:23 INR 1.73 (0.87-1.13) H 07/20/19 08:23 APTT 38.3 Sec. (24.2-36.6) H 07/20/19 08:23 Sodium 136 mmol/L (137-145) L 07/20/19 08:23 Potassium 4.8 mmol/L (3.6-5.0) 07/20/19 08:23 Chloride 97.4 mmol/L (98-107) L 07/20/19 08:23 Carbon Dioxide 18 mmol/L (22-30) L 07/20/19 08:23 Anion Gap 25 mmol/L 07/20/19 08:23 BUN 39 mg/dL (9-20) H 07/20/19 08:23 Creatinine 2.4 mg/dL (0.8-1.5) H 07/20/19 08:23 Estimated GFR 34 ml/min 07/20/19 08:23 BUN/Creatinine Ratio 16 % 07/20/19 08:23 Glucose 151 mg/dL (75-100) H 07/20/19 08:23 POC Glucose 169 (70-105) H 07/21/19 12:16 Calcium 8.6 mg/dL (8.4-10.2) 07/20/19 08:23 Troponin T 0.018 ng/mL (0.00-0.029) 07/19/19 07:35 Troponin T 0.020 ng/mL (0.00-0.029) 07/19/19 07:35 Digoxin 0.3 ng/mL (0.9-2.0) L 07/19/19 10:08 AFB Identification 07/20/19 Unknown Active Medications - Current Medications Current Medications: Generic Name Dose Route Start Last Admin Trade Name Freq PRN Reason Stop Dose Admin Acetaminophen 650 mg 07/19/19 01:38 07/21/19 14:59 Tylenol PO 650 mg Q4H PRN Administration Pain MILD(1-3)/Fever >100.5/TRUJILLO Albuterol/Ipratropium 1 ampul 07/19/19 20:00 07/21/19 14:05 Duoneb *Not For Prn Use* IH 1 ampul TIDRT SOUMYA Administration Aspirin 325 mg 07/20/19 10:00 07/21/19 09:08 Ecotrin PO 325 mg QDAY SOUMYA Administration Atorvastatin Calcium 40 mg 07/19/19 22:00 07/21/19 06:30 Lipitor PO Not Given QHS [facility] Dextrose 0 ml 07/19/19 03:00 07/19/19 23:01 D50w (25gm) Syringe IV 20 ml Q30MIN PRN Administration Hypoglycemia Protocol Digoxin 0.25 mg 07/22/19 17:00 Lanoxin PO Q48H [facility] Docusate Sodium 100 mg 07/19/19 10:00 07/21/19 09:10 Colace PO Not Given BID [facility] Magnesium Hydroxide 30 ml 07/19/19 01:38 Milk Of Magnesia PO Q4H PRN Constipation Metoprolol Tartrate 50 mg 07/19/19 08:00 07/21/19 15:00 Metoprolol PO 50 mg TID SOUMYA Administration Metoprolol Tartrate 25 mg 07/19/19 08:00 07/21/19 15:00 Metoprolol PO 25 mg TID SOUMYA Administration Morphine Sulfate 2 mg 07/19/19 01:38 07/20/19 20:11 Morphine IV 2 mg Q4H PRN Administration Pain, Moderate (4-6) Morphine Sulfate 2 mg 07/19/19 01:38 Morphine IV Q5MIN PRN Chest Pain unrelieved by NTG Nicotine 14 mg 07/19/19 10:00 07/21/19 09:09 Habitrol TD Not Given QDAY [facility] Nitroglycerin 0.4 mg 07/19/19 01:38 Nitrostat SL Q5M PRN Chest Pain Ondansetron HCl 4 mg 07/19/19 01:38 Zofran IV Q8H PRN Nausea And Vomiting Prednisone 20 mg 07/19/19 10:00 07/21/19 09:08 Deltasone PO 20 mg QDAY SOUMYA Administration Sodium Bicarbonate 1,300 mg 07/19/19 10:00 07/21/19 09:08 Sodium Bicarbonate PO 1,300 mg BID SOUMYA Administration Sodium Chloride 10 ml 07/19/19 10:00 07/21/19 10:00 Sodium Chloride Flush Syringe 10 Ml IV 10 ml BID SOUMYA Administration Sodium Chloride 10 ml 07/19/19 01:38 07/20/19 20:12 Sodium Chloride Flush Syringe 10 Ml IV 10 ml PRN PRN Administration LINE FLUSH Nutrition/Malnutrition Assess - Dietary Evaluation Nutrition/Malnutrition Findings: Nutrition Notes Start: 07/20/19 12:59 Freq: Status: Active Protocol: Document 07/21/19 13:21 CT (Rec: 07/21/19 13:23 CT [id number]) Co-Sign 07/21/19 13:21 LM Nutrition Notes Initial or Follow up Brief Note Subjective/Other Information Pt asked RN to request Ensure Vanilla and fruit on his tray, no strawberries. Glucerna ordered since pt has DM. Nutrition Intervention Add Supplement/Snack (indicate name/kcal Glucerna Vanilla Daily /protein ) Provides kCal: 220 Provides Protein (gm) 10 Follow-Up By: 07/22/19 Additional Comments Follow up for PO intake, need for ONS
[2019-07-21] MEDS ORDERED: NON-FORMULARY EACH (Oxycodone Hcl/Acetaminophen [Percocet 10/325 Mg] 1 EACH) PO PRN (16:48)
--- NOTE | 2019-07-21 16:59 | Consultation ---
History of Present Illness - History of Present Illness 54-year-old gentleman with medical history of atrial fibrillation, chronic ki dney disease, COPD, congestive heart failure with markedly reduced ejection fraction admitted with complaints of shortness of breath chest x-ray showed left pleural effusion status post thoracentesis. He reports positive orthopnea PND. He does some extremity edema also has a left leg ulcer. He has not been on any diuretics that show worsening renal function baseline creatinine 1.5-1.6 with recent creatinine is 2.4 mg/dl . Denies any nausea vomiting abdominal pain denies any headaches fevers chills Past History Past Medical History: diabetes, heart failure, hypertension Past Surgical History: Other (Defibrillator placement) Social history: smoking (Smokes 2 cigarettes daily) Family history: cancer, hypertension, other Medications and Allergies Allergies Allergy/AdvReac Type Severity Reaction Status Date / Time Penicillins Allergy Itching Verified 03/05/19 22:41 strawberry Allergy Hives Verified 03/05/19 22:41 Home Medications Medication Instructions Recorded Confirmed Last Taken Type Apixaban [Eliquis] 1 tab PO BID #60 tablet 03/14/19 07/19/19 07/17/19 Rx Aspirin [Aspirin BABY CHEW TAB] 81 mg PO QDAY #30 tab.chew 03/14/19 07/19/19 07/19/19 15:57 Rx AtorvaSTATin [Lipitor] 40 mg PO QHS #30 tablet 03/14/19 07/19/19 07/19/19 15:58 Rx guaiFENesin ER [Mucinex ER] 600 mg PO BID #60 tablet 03/14/19 07/19/19 Unknown Rx Colchicine 0.6 mg PO QDAY #10 capsule 03/21/19 07/19/19 07/17/19 Rx Nicotine [Habitrol] 14 mg TD QDAY #30 patch 03/21/19 07/19/19 07/19/19 15:53 Rx predniSONE [Deltasone] 20 mg PO QDAY #7 tablet 03/21/19 07/19/19 07/17/19 Rx Digoxin [Lanoxin] 0.25 mg PO DAILY@1700 #30 tablet 05/05/19 07/19/19 07/18/19 Rx Acetaminophen [Acetaminophen TAB] 2 tab PO Q4H PRN #15 tablet 06/25/19 07/19/19 07/19/19 15:58 Rx Metoprolol [Lopressor TAB] 75 mg PO TID #90 tablet 06/25/19 07/19/19 07/19/19 15:53 Rx Oxycodone HCl/Acetaminophen 1 each PO Q6HR PRN #20 tablet 06/25/19 07/19/19 07/16/19 Rx [Percocet 10/325 mg] Sodium Bicarbonate 1,300 mg PO BID #90 tablet 06/25/19 07/19/19 07/19/19 15:53 Rx Torsemide [Demadex] 100 mg PO DAILY@0600 #30 tablet 06/25/19 07/19/19 Unknown Rx Active Meds: Active Medications Acetaminophen (Tylenol) 650 mg PO Q4H PRN PRN Reason: Pain MILD(1-3)/Fever >100.5/TRUJILLO Last Admin: 07/21/19 14:59 Dose: 650 mg Documented by: Albuterol/Ipratropium (Duoneb *Not For Prn Use*) 1 ampul IH TIDRT [facility] Last Admin: 07/21/19 14:05 Dose: 1 ampul Documented by: Apixaban (Eliquis) mg PO BID [facility]; Protocol Aspirin (Baby Aspirin) 81 mg PO QDAY [facility] Atorvastatin Calcium (Lipitor) 40 mg PO QHS [facility] Last Admin: 07/21/19 06:30 Dose: Not Given Documented by: Colchicine (Colchicine) 0.6 mg PO QDAY [facility] Dextrose (D50w (25gm) Syringe) 0 ml IV Q30MIN PRN; Protocol PRN Reason: Hypoglycemia Last Admin: 07/19/19 23:01 Dose: 20 ml Documented by: Digoxin (Lanoxin) 0.25 mg PO Q48H [facility] Docusate Sodium (Colace) 100 mg PO BID [facility] Last Admin: 07/21/19 09:10 Dose: Not Given Documented by: Guaifenesin (Mucinex Er) 600 mg PO BID [facility] Magnesium Hydroxide (Milk Of Magnesia) 30 ml PO Q4H PRN PRN Reason: Constipation Metoprolol Tartrate (Metoprolol) 50 mg PO TID [facility] Last Admin: 07/21/19 15:00 Dose: 50 mg Documented by: Metoprolol Tartrate (Metoprolol) 25 mg PO TID [facility] Last Admin: 07/21/19 15:00 Dose: 25 mg Documented by: Miscellaneous Medication (Oxycodone Hcl/Acetaminophen [Percocet 10/325 Mg]) 1 each PO Q6HR PRN PRN Reason: Pain , Severe (7-10) Morphine Sulfate (Morphine) 2 mg IV Q4H PRN PRN Reason: Pain, Moderate (4-6) Last Admin: 07/20/19 20:11 Dose: 2 mg Documented by: Morphine Sulfate (Morphine) 2 mg IV Q5MIN PRN PRN Reason: Chest Pain unrelieved by NTG Nicotine (Habitrol) 14 mg TD QDAY [facility] Last Admin: 07/21/19 09:09 Dose: Not Given Documented by: Nitroglycerin (Nitrostat) 0.4 mg SL Q5M PRN PRN Reason: Chest Pain Ondansetron HCl (Zofran) 4 mg IV Q8H PRN PRN Reason: Nausea And Vomiting Prednisone (Deltasone) 20 mg PO QDAY [facility] Last Admin: 07/21/19 09:08 Dose: 20 mg Documented by: Sodium Bicarbonate (Sodium Bicarbonate) 1,300 mg PO BID [facility] Last Admin: 07/21/19 09:08 Dose: 1,300 mg Documented by: Sodium Chloride (Sodium Chloride Flush Syringe 10 Ml) 10 ml IV BID [facility] Last Admin: 07/21/19 10:00 Dose: 10 ml Documented by: Sodium Chloride (Sodium Chloride Flush Syringe 10 Ml) 10 ml IV PRN PRN PRN Reason: LINE FLUSH Last Admin: 07/20/19 20:12 Dose: 10 ml Documented by: Review of Systems Constitutional: weight gain Ears, nose, mouth and throat: no deferred, no ear pain Cardiovascular: orthopnea, shortness of breath, paroxysmal nocturnal dyspnea, no chest pain Respiratory: cough Gastrointestinal: no abdominal pain, no nausea, no vomiting, no diarrhea Genitourinary Male: dysuria, no hematuria Rectal: no pain, no incontinence Integumentary: no deferred, no rash Neurological: no head injury, no transient paralysis Psychiatric: no anxiety, no memory loss Endocrine: no cold intolerance, no heat intolerance Hematologic/Lymphatic: no easy bruising, no easy bleeding Exam - Vital Signs Vital signs: Vital Signs Temp Pulse Resp Pulse Ox 98.8 F 98 H 20 100 07/18/19 23:08 07/18/19 23:08 07/18/19 23:08 07/18/19 23:08 - General Appearance General appearance: well-developed, well-nourished EENT: ATNC, PERRL Neck: Present: neck supple, JVD/HJR Respiratory: Decreased Breath Sounds Heart: regular, S1S2 Gastrointestinal: Present: normal, normoactive bowel sounds Integumentary: rash, chronic venous stasis Neurologic: alert and oriented x3, CN 3-12 intact Musculoskeletal: Present: other (lower extremity edema) Psychiatric: mood/affect appropriate Results - Lab Results 07/20/19 08:23 07/20/19 08:23 Most recent lab results Calcium 8.6 mg/dL (8.4-10.2) 07/20/19 08:23 - Image Kidney/bladder ultrasound: other (reviewed CXR with right sided effusion, and pulmonary congestion) Assessment and Plan Patient Problems (1) Acute kidney injury superimposed on chronic kidney disease Current Visit: Yes Status: Acute Plan to address problem: Acute kidney injury superimposed on chronic kidney disease creatinine is improved but apparent baseline I reviewed chest x-ray with pulmonary congestion Will initiate diuretics. We'll give 60 mg IV Lasix 1 Continue 40 mg IV twice a day (2) Pleural effusion Current Visit: Yes Status: Acute Plan to address problem: Pleural effusion s/p thoracentesis resume diuretics. (3) Hyponatremia Current Visit: Yes Status: Acute Plan to address problem: Hyponatremia mild fluid restriction given history of congestive heart failure (4) Anemia Current Visit: Yes Status: Acute Plan to address problem: Moderate anemia hemoglobin 12.7 g per DL etiology secondary to chronic infl ammation Monitor CBC
[2019-07-21] MEDS ORDERED: FUROSEMIDE 40 MG/4 ML INJ IV ONE ×2 (17:24→18:00)
[2019-07-21 18:29] LABS: Calcium 7.9 mg/dL (8.4-10.2)
[2019-07-21] MEDS: COLCHICINE 0.6 MG CAP PO SCH (18:33)
[2019-07-21] MEDS: MORPHINE 2 MG/1 ML INJ IV PRN (18:41)
[2019-07-21] MEDS ORDERED: FUROSEMIDE 40 MG/4 ML INJ IV SCH (21:00)
[2019-07-21] MEDS: guaiFENesin ER 600 MG TAB PO SCH (22:08)
[2019-07-21] MEDS: APIXABAN 5 MG TAB PO SCH (22:09)
[2019-07-22] MEDS: FUROSEMIDE 40 MG/4 ML INJ IV SCH ×2 (05:27→17:09)
[2019-07-22] MEDS: MORPHINE 2 MG/1 ML INJ IV PRN ×2 (05:31→23:31)
--- NOTE | 2019-07-22 07:38 | Progress Note ---
Assessment and Plan Large Right pleural effusion Atypical chest pain Tobacco use disorder/Nicotine dependence Acute on chronic systolic heart failure h/o chronic Respiratory failure Sleep apnea DM type 2 Anemia Left leg Diabetic Ulcer Metabolic acidosis ESTEVAN on CKD Continue all current care Discussed need for smoking cessation again Continue bronchodilators per protocol Increase activity -Supplemental oxygen to keep O2 sats>90%, as indicated -Continue Eliquis -Chronic COPD medications -Follow up pleural fluid studies, including cytology - Continue heart failure measures -Avoid nephrotoxins, monitor electrolytes and address as needed -Monitor hemodynamics closely -Continue on nocturnal BIPAP 08/06, back up rate 12, FIO2 30% -Management of atrial fibrillation per Cardiology -Accuchecks with glycemic control, avoid hypoglycemia -Nicotine withdrawal precautions -Need for adherence to medical therapy encouraged -Influenza and pneumonia vaccination per protocol - Continue Wound care for left foot ulcer, being evaluated by vascular re PAD -Continue all supportive care Outpatient pulmonary follow up on discharge Discharge planning per primary service Subjective Date of service: 07/22/19 Principal diagnosis: Dyspnea; Large right pleural effusion; Tobacco use disorder; COPD; KAREN Interval history: Patient is seen today for: Dyspnea,; Large right pleural effusion: Tobacco use disorder: COPD; Sleep apnea Seen and examined at bedside; 24hour events reviewed; nursing and respiratory care staff consulted; no adverse overnight events reported to me; Vitals, labs, medications, chart reviewed. s/p Thoracentesis- feels better; was compliant with BIPAP overnight; denies any chest pain, no shortness of breath, no fevers or chills. Pain in the left foot Objective Vital Signs - 12hr 07/21/19 07/21/19 07/21/19 20:00 20:08 22:08 Temperature Pulse Rate 54 L Pulse Rate [ 54 L Anterior Bilateral Throughout] Respiratory 18 Rate Respiratory 16 Rate [Anterior Bilateral Throughout] Blood Pressure 99/78 O2 Sat by Pulse 96 Oximetry 07/21/19 07/21/19 07/21/19 22:09 23:17 23:39 Temperature 97.6 F Pulse Rate 54 L 56 L 75 Pulse Rate [ Anterior Bilateral Throughout] Respiratory 16 20 Rate Respiratory Rate [Anterior Bilateral Throughout] Blood Pressure 99/78 110/80 O2 Sat by Pulse 94 97 Oximetry 07/22/19 07/22/19 07/22/19 04:51 05:31 05:55 Temperature 98.6 F Pulse Rate 48 L 48 L Pulse Rate [ Anterior Bilateral Throughout] Respiratory 16 20 Rate Respiratory Rate [Anterior Bilateral Throughout] Blood Pressure 97/73 O2 Sat by Pulse 87 Oximetry Constitutional: no acute distress, alert Eyes: non-icteric ENT: oropharynx moist Neck: supple, no lymphadenopathy, no JVD Effort: normal Ascultation: Bilateral: diminished breath sounds, other (poor AE right lung ) Cardiovascular: irregular rhythm, murmur noted, other (S1,S2 chest wall cardiac device) Gastrointestinal: normoactive bowel sounds, soft, non-tender, other (mild distension, non tender) Extremities: no cyanosis, cool (left foot ulcer) Neurologic: normal mental status, pupils equal and round, CN II-XII normal Psychiatric: mood appropriate, affect normal, depressed CBC and BMP: 07/20/19 08:23 07/23/19 07:17 ABG, PT/INR, D-dimer: PT/INR, D-dimer PT 20.0 Sec. (12.2-14.9) H 07/20/19 08:23 INR 1.73 (0.87-1.13) H 07/20/19 08:23 Abnormal lab findings: Abnormal Labs 07/18/19 07/18/19 07/18/19 23:33 23:33 23:33 Hgb 11.5 L Hct 34.9 L RDW 19.4 H Lymph % (Auto) Young % (Auto) 14.8 H Lymph # 0.8 L Seg Neutrophils % PT 16.1 H INR 1.31 H APTT Sodium 135 L Potassium Chloride Carbon Dioxide 17 L BUN 22 H Creatinine Glucose POC Glucose Calcium Digoxin 07/19/19 07/19/19 07/19/19 02:09 02:09 10:08 Hgb Hct RDW 19.9 H Lymph % (Auto) Young % (Auto) 13.8 H Lymph # Seg Neutrophils % PT INR APTT Sodium Potassium Chloride Carbon Dioxide 18 L BUN 23 H Creatinine 1.6 H Glucose 101 H POC Glucose Calcium Digoxin 0.3 L 07/19/19 07/19/19 07/19/19 16:33 22:30 22:43 Hgb Hct RDW Lymph % (Auto) Young % (Auto) Lymph # Seg Neutrophils % PT INR APTT Sodium Potassium Chloride Carbon Dioxide BUN Creatinine Glucose 46 L POC Glucose 50 L 45 L Calcium Digoxin 07/20/19 07/20/19 07/20/19 00:29 07:38 08:23 Hgb Hct RDW 19.3 H Lymph % (Auto) 12.2 L Young % (Auto) 9.9 H Lymph # 0.9 L Seg Neutrophils % 77.6 H PT INR APTT Sodium Potassium Chloride Carbon Dioxide BUN Creatinine Glucose POC Glucose 66 L 155 H Calcium Digoxin 07/20/19 07/20/19 07/20/19 08:23 08:23 12:10 Hgb Hct RDW Lymph % (Auto) Young % (Auto) Lymph # Seg Neutrophils % PT 20.0 H INR 1.73 H APTT 38.3 H Sodium 136 L Potassium Chloride 97.4 L Carbon Dioxide 18 L BUN 39 H Creatinine 2.4 H Glucose 151 H POC Glucose 148 H Calcium Digoxin 07/20/19 07/20/19 07/21/19 16:29 20:31 09:07 Hgb Hct RDW Lymph % (Auto) Young % (Auto) Lymph # Seg Neutrophils % PT INR APTT Sodium Potassium Chloride Carbon Dioxide BUN Creatinine Glucose POC Glucose 137 H 167 H 128 H Calcium Digoxin 07/21/19 07/21/19 07/21/19 12:16 16:59 17:35 Hgb Hct RDW Lymph % (Auto) Young % (Auto) Lymph # Seg Neutrophils % PT INR APTT Sodium 132 L Potassium 5.1 H Chloride 95.9 L Carbon Dioxide BUN 49 H Creatinine 2.6 H Glucose 173 H POC Glucose 169 H 195 H Calcium 7.9 L Digoxin 07/21/19 07/22/19 21:27 05:56 Hgb Hct RDW Lymph % (Auto) Young % (Auto) Lymph # Seg Neutrophils % PT INR APTT Sodium 134 L Potassium Chloride 97.8 L Carbon Dioxide BUN 51 H Creatinine 2.4 H Glucose 119 H POC Glucose 182 H Calcium 8.0 L Digoxin Allied health notes reviewed: nursing
[2019-07-22] MEDS: METOPROLOL TARTRATE 25 MG TAB PO SCH ×2 (08:36→23:29)
[2019-07-22] MEDS: METOPROLOL TARTRATE 50 MG TAB PO SCH (08:36)
[2019-07-22] MEDS: COLCHICINE 0.6 MG CAP PO SCH (10:02)
[2019-07-22] MEDS: predniSONE 20 MG TAB PO SCH (10:02)
[2019-07-22] MEDS: DOCUSATE SODIUM 100 MG CAP PO SCH ×2 (10:02→23:30)
[2019-07-22] MEDS: SODIUM BICARBONATE 650 MG TAB PO SCH ×2 (10:02→23:29)
[2019-07-22] MEDS: guaiFENesin ER 600 MG TAB PO SCH ×2 (10:02→23:29)
[2019-07-22] MEDS: APIXABAN 5 MG TAB PO SCH ×2 (10:02→23:29)
[2019-07-22] MEDS: ASPIRIN 81 MG TAB CHEW PO SCH (10:02)
[2019-07-22] MEDS: IPRATROPIUM/ALBUTEROL SULFATE 3 ML AMPUL.NEB IH SCH ×3 (10:02→20:20)
[2019-07-22] MEDS: NICOTINE 14 MG/24 HR PATCH TD SCH (10:03)
--- NOTE | 2019-07-22 10:19 | Progress Note ---
Assessment and Plan Recurrent Pleural effusion s/p thoracentesis Chronic systolic heart failure Acute on chronic renal failure LLE ulcer Chronic atrial fibrillation on Eliquis for oral anticoagulation as an outpatient rate controlled with metoprolol and digoxin dig level 0.3 on current presentation Hx of Nonischemic cardiomyopathy EF 15-20% by echo 11/2018 Presence of the ICD recent interrogation revealed a normal functioning device Essential hypertension Type 2 diabetes mellitus Chronic obstructive pulmonary disease Noncompliant with outpatient follow ups Recommendations: Daily weight. Fluid/sodium restriction. Continue medical therapy for chronic systolic heart failure and chronic atrial fibrillation. Subjective Date of service: 07/22/19 Principal diagnosis: Dyspnea; Large right pleural effusion; Tobacco use disorder; COPD; KAREN Interval history: Patient is resting in bed comfortably. Afib with a well controlled ventricular rate on telemetry. Objective Vital Signs Temp Pulse Pulse Resp Resp BP BP 07/22/19 10:00 07/22/19 08:04 97.7 F 79 18 84/65 07/22/19 08:00 54 L 16 07/22/19 05:55 48 L 07/22/19 05:31 20 07/22/19 04:51 98.6 F 48 L 16 97/73 07/21/19 23:39 75 20 07/21/19 23:17 97.6 F 56 L 16 110/80 07/21/19 22:09 54 L 99/78 07/21/19 22:08 54 L 18 99/78 07/21/19 20:08 07/21/19 20:00 54 L 16 07/21/19 19:28 97.6 F 80 20 99/78 07/21/19 18:37 80 104/71 07/21/19 16:53 98.2 F 62 18 100/63 07/21/19 15:00 78 100/73 07/21/19 14:00 84 20 07/21/19 12:05 98.6 F 63 18 96/68 Pulse Ox 07/22/19 10:00 97 07/22/19 08:04 96 07/22/19 08:00 07/22/19 05:55 07/22/19 05:31 07/22/19 04:51 87 07/21/19 23:39 97 07/21/19 23:17 94 07/21/19 22:09 07/21/19 22:08 07/21/19 20:08 96 07/21/19 20:00 07/21/19 19:28 94 07/21/19 18:37 07/21/19 16:53 99 07/21/19 15:00 07/21/19 14:00 07/21/19 12:05 91 - Physical Examination General: No Apparent Distress HEENT: Positive: PERRL Neck: Positive: trachea midline Cardiac: Positive: irregularly irregular Lungs: Positive: Decreased Breath Sounds Neuro: Positive: Grossly Intact Extremities: Absent: edema - Labs and Meds Comprehensive Metabolic Panel 07/21/19 07/22/19 Range/Units 17:35 05:56 Sodium 132 L 134 L (137-145) mmol/L Potassium 5.1 H 4.6 (3.6-5.0) mmol/L Chloride 95.9 L 97.8 L (98-107) mmol/L Carbon Dioxide 23 22 (22-30) mmol/L BUN 49 H 51 H (9-20) mg/dL Creatinine 2.6 H 2.4 H (0.8-1.5) mg/dL Glucose 173 H 119 H (75-100) mg/dL Calcium 7.9 L 8.0 L (8.4-10.2) mg/dL - Allied health notes Allied health notes reviewed: nursing
--- NOTE | 2019-07-22 15:17 | Progress Note ---
Assessment and Plan Patient Problems (1) Acute kidney injury superimposed on chronic kidney disease Current Visit: Yes Status: Acute Plan to address problem: Acute kidney injury superimposed on chronic kidney disease creatinine is improved but apparent baseline I reviewed chest x-ray with pulmonary congestion Continue diuretics. Received 60 mg IV Lasix 1 Continue 40 mg IV twice a day (2) Pleural effusion Current Visit: Yes Status: Acute Plan to address problem: Pleural effusion s/p thoracentesis resume diuretics. (3) Hyponatremia Current Visit: Yes Status: Acute Plan to address problem: Hyponatremia mild fluid restriction given history of congestive heart failure (4) Anemia Current Visit: Yes Status: Acute Plan to address problem: Moderate anemia hemoglobin 12.7 g per DL etiology secondary to chronic inflammation Monitor CBC Subjective Principal diagnosis: Dyspnea; Large right pleural effusion; Tobacco use disorder; COPD; KAREN Interval history: 54-year-old gentleman with medical history of atrial fibrillation, chronic kidney disease, COPD, congestive heart failure with markedly reduced ejection fraction admitted with complaints of shortness of breath chest x-ray showed left pleural effusion status post thoracentesis. He reports positive orthopnea PND. He does some extremity edema also has a left leg ulcer. He has not been on any diuretics that show worsening renal function baseline creatinine 1.5-1.6 with recent creatinine is 2.4 mg/dl . Denies any nausea vomiting abdominal pain denies any headaches fevers chills Patient seen today reports shortness of breath is improved Still has lower extremity edema Remains on oxygen Objective - Vital Signs Vital signs: Vital Signs - 12hr 07/22/19 07/22/19 07/22/19 04:51 05:31 05:55 Temperature 98.6 F Pulse Rate 48 L 48 L Pulse Rate [ Anterior Bilateral Throughout] Respiratory 16 20 Rate Respiratory Rate [Anterior Bilateral Throughout] Blood Pressure 97/73 O2 Sat by Pulse 87 Oximetry 07/22/19 07/22/19 07/22/19 08:00 08:04 10:00 Temperature 97.7 F Pulse Rate 79 Pulse Rate [ 54 L Anterior Bilateral Throughout] Respiratory 18 Rate Respiratory 16 Rate [Anterior Bilateral Throughout] Blood Pressure 84/65 O2 Sat by Pulse 96 97 Oximetry 07/22/19 07/22/19 11:45 14:00 Temperature 98.9 F Pulse Rate 67 Pulse Rate [ 54 L Anterior Bilateral Throughout] Respiratory 18 Rate Respiratory 16 Rate [Anterior Bilateral Throughout] Blood Pressure 109/73 O2 Sat by Pulse 95 Oximetry - General Appearance General appearance: well-developed, well-nourished EENT: ATNC, PERRL, mucous membranes moist Neck: no JVD Respiratory: Present: Clear to Ascultation Cardiology: regular, S1S2 Gastrointestinal: normal, normoactive bowel sounds Integumentary: rash, erythema, chronic venous stasis Neurologic: alert and oriented x3, CN 3-12 intact Psychiatric: mood/affect appropriate - Lab 07/20/19 08:23 07/22/19 05:56 Most recent lab results Calcium 8.0 mg/dL (8.4-10.2) L 07/22/19 05:56 - Imaging Chest x-ray: image reviewed (I reviewed chest x-ray with right-sided effusion and pulmonary edema) Medications & Allergies - Medications Allergies/Adverse Reactions: Allergies Penicillins Allergy (Verified 03/05/19 22:41) Itching strawberry Allergy (Verified 03/05/19 22:41) Hives Home Medications: Home Medications Medication Instructions Recorded Confirmed Last Taken Type Apixaban [Eliquis] 1 tab PO BID #60 tablet 03/14/19 07/19/19 07/17/19 Rx Aspirin [Aspirin BABY CHEW TAB] 81 mg PO QDAY #30 tab.chew 03/14/19 07/19/19 07/19/19 15:57 Rx AtorvaSTATin [Lipitor] 40 mg PO QHS #30 tablet 03/14/19 07/19/19 07/19/19 15:58 Rx guaiFENesin ER [Mucinex ER] 600 mg PO BID #60 tablet 03/14/19 07/19/19 Unknown Rx Colchicine 0.6 mg PO QDAY #10 capsule 03/21/19 07/19/19 07/17/19 Rx Nicotine [Habitrol] 14 mg TD QDAY #30 patch 03/21/19 07/19/19 07/19/19 15:53 Rx predniSONE [Deltasone] 20 mg PO QDAY #7 tablet 03/21/19 07/19/19 07/17/19 Rx Digoxin [Lanoxin] 0.25 mg PO DAILY@1700 #30 tablet 05/05/19 07/19/19 07/18/19 Rx Acetaminophen [Acetaminophen TAB] 2 tab PO Q4H PRN #15 tablet 06/25/19 07/19/19 07/19/19 15:58 Rx Metoprolol [Lopressor TAB] 75 mg PO TID #90 tablet 06/25/19 07/19/19 07/19/19 15:53 Rx Oxycodone HCl/Acetaminophen 1 each PO Q6HR PRN #20 tablet 06/25/19 07/19/19 07/16/19 Rx [Percocet 10/325 mg] Sodium Bicarbonate 1,300 mg PO BID #90 tablet 06/25/19 07/19/19 07/19/19 15:53 Rx Torsemide [Demadex] 100 mg PO DAILY@0600 #30 tablet 06/25/19 07/19/19 Unknown Rx Active Medications: Generic Name Dose Route Start Last Admin Trade Name Freq PRN Reason Stop Dose Admin Acetaminophen 650 mg 07/19/19 01:38 07/21/19 22:08 Tylenol PO 650 mg Q4H PRN Administration Pain MILD(1-3)/Fever >100.5/TRUJILLO Albuterol/Ipratropium 1 ampul 07/19/19 20:00 07/22/19 14:31 Duoneb *Not For Prn Use* IH Not Given TIDRT SOUMYA Apixaban 5 mg 07/21/19 22:00 07/22/19 10:02 Eliquis PO 5 mg BID SOUMYA Administration Protocol Aspirin 81 mg 07/22/19 10:00 07/22/19 10:02 Baby Aspirin PO 81 mg QDAY SOUMYA Administration Atorvastatin Calcium 40 mg 07/19/19 22:00 07/21/19 22:09 Lipitor PO 40 mg QHS SOUMYA Administration Colchicine 0.6 mg 07/21/19 17:00 07/22/19 10:02 Colchicine PO 0.6 mg QDAY SOUMYA Administration Dextrose 0 ml 07/19/19 03:00 07/19/19 23:01 D50w (25gm) Syringe IV 20 ml Q30MIN PRN Administration Hypoglycemia Protocol Digoxin 0.25 mg 07/22/19 17:00 Lanoxin PO Q48H SOUMYA Docusate Sodium 100 mg 07/19/19 10:00 07/22/19 10:02 Colace PO 100 mg BID SOUMYA Administration Furosemide 40 mg 07/22/19 06:00 07/22/19 05:27 Lasix IV 40 mg 0600,1800 SOUMYA Administration Guaifenesin 600 mg 07/21/19 22:00 11/21/19 10:02 Mucinex Er PO 600 mg BID SOUMYA Administration Magnesium Hydroxide 30 ml 07/19/19 01:38 07/22/19 10:02 Milk Of Magnesia PO 30 ml Q4H PRN Administration Constipation Morphine Sulfate 2 mg 07/19/19 01:38 07/22/19 05:31 Morphine IV 2 mg Q4H PRN Administration Pain, Moderate (4-6) Morphine Sulfate 2 mg 07/19/19 01:38 Morphine IV Q5MIN PRN Chest Pain unrelieved by NTG Nicotine 14 mg 07/19/19 10:00 07/22/19 10:03 Habitrol TD Not Given QDAY [facility] Nitroglycerin 0.4 mg 07/19/19 01:38 Nitrostat SL Q5M PRN Chest Pain Ondansetron HCl 4 mg 07/19/19 01:38 Zofran IV Q8H PRN Nausea And Vomiting Oxycodone HCl 5 mg 07/21/19 17:20 Roxicodone PO Q6H PRN Pain , Severe (7-10) Oxycodone/Acetaminophen 1 tab 07/21/19 17:21 Percocet 5/325 PO Q6H PRN Pain , Severe (7-10) Prednisone 20 mg 07/19/19 10:00 07/22/19 10:02 Deltasone PO 20 mg QDAY SOUMYA Administration Sodium Bicarbonate 1,300 mg 07/19/19 10:00 07/22/19 10:02 Sodium Bicarbonate PO 1,300 mg BID SOUMYA Administration Sodium Chloride 10 ml 07/19/19 10:00 07/22/19 10:03 Sodium Chloride Flush Syringe 10 Ml IV 10 ml BID SOUMYA Administration Sodium Chloride 10 ml 07/19/19 01:38 07/22/19 05:32 Sodium Chloride Flush Syringe 10 Ml IV 10 ml PRN PRN Administration LINE FLUSH
[2019-07-22] MEDS ORDERED: DIGOXIN 0.25 MG TAB PO SCH (17:00)
[2019-07-22] MEDS: oxyCODONE /ACETAMINOPHEN 5-325MG TAB PO PRN (18:00)
--- NOTE | 2019-07-22 18:04 | Progress Note ---
Assessment and Plan Assessment and plan: Patient is a 54-year-old man with a plethora of serious co-morbidities including Afib on Eliquis, CKD 3, CVA, KAREN, COPD, CHF EF 15-20%, hypertension and Recurrent right sided CHF related pleural effusion who presented to [facility] ED with SOB and chest pains. He was found to have a very large right pleural effusion and had thoracentesis performed 07/20/2019. He admits to not following up with lung doctors as instructed. Acute hypoxic respiratory failure, poa - continue supplemental O2 and Continue nocturnal BIPAP 08/06, back up rate 12, FIO2 30%, Pulm is following Recurrent right pleural effusion s/p thoracentesis, symptoms improved ARF on CKD 3, due to vasomotor nephropathy: stop iv lasix bid, consult nephrology and reviewed renal ultrasound on 06/2019 when Cr went up to 2.2 Syncope, vasovagal in nature: continue telemetry Chronic systolic heart failure with Hx of Nonischemic cardiomyopathy, EF 15-20% by echo 11/2018: continue AICD monitoring, Fluid/sodium restriction, Daily weight.. Presence of the ICD: recent interrogation revealed a normal functioning device Chronic nonhealing Ulcer of left ankle, DM related: local wound care therapy Chest pain, atypical, evaluate by Cardiology, most likely related to pleural effusion Chronic atrial fibrillation-on Eliquis for oral anticoagulation as an outpatient; rate controlled with metoprolol and digoxin, Resume Eliquis Essential hypertension: low salt diet, treat with antihypertensives Type 2 diabetes mellitus: ada diet, ssi, bmp Chronic obstructive pulmonary disease, continue nebs Noncompliant with outpatient follow ups: counseling done DVT prophylaxis-Patient currently on anticoagulation. 8 beat run of NSVT: Cardiology is following, follow electrolytes closely full code Disposition: continue inpatient care, d/c once renal function improves History Interval history: Patient was seen and examined. Follow-up on current diagnosis of recurrent pl eural effusion. No overnight events reported to me. Patient denies any chest pain, shortness breath, nausea/vomiting or severe headaches. Imaging, nursing note, chart, labs and old chart reviewed. Discussed with patient. Hospitalist Physical - Physical exam Narrative exam: Gen: thin chronically ill appearing, NAD, Awake, Alert, Orientated HEENT: NCAT, EOMI, PERRL, OP Clear Neck: supple, no adenopathy, no thyromegaly, no JVD CVS/Heart: irregular irregular, normal S1S2, pulses present bilaterally Chest/Lungs: right diminished at base, Symmetrical chest expansion, good air entry bilaterally GI/Abdomen: soft, NTND, good bowel sounds, no guarding or rebound /Bladder: no suprapubic tenderness, no CVA or paraspinal tenderness Extermity/Skin: no c/c/e, no obvious rash MSK: FROM x 4 Neuro: CN 2-12 grossly intact, no new focal deficits Psych: calm - Constitutional Vitals: Temp Pulse Resp BP Pulse Ox 98.0 F 68 18 98/72 93 07/22/19 15:46 07/22/19 17:08 07/22/19 15:46 07/22/19 17:08 07/22/19 15:46 General appearance: Absent: mild distress (left ankle pain) Results - Labs CBC & Chem 7: 07/20/19 08:23 07/22/19 05:56 Labs: Laboratory Last Values WBC 7.4 K/mm3 (4.5-11.0) 07/20/19 08:23 RBC 4.36 M/mm3 (3.65-5.03) 07/20/19 08:23 Hgb 12.7 gm/dl (11.8-15.2) 07/20/19 08:23 Hct 39.6 % (35.5-45.6) 07/20/19 08:23 MCV 91 fl (84-94) 07/20/19 08:23 MCH 29 pg (28-32) 07/20/19 08:23 MCHC 32 % (32-34) 07/20/19 08:23 RDW 19.3 % (13.2-15.2) H 07/20/19 08:23 Plt Count 184 K/mm3 (140-440) 07/20/19 08:23 Lymph % (Auto) 12.2 % (13.4-35.0) L 07/20/19 08:23 [place] % (Auto) 9.9 % (0.0-7.3) H 07/20/19 08:23 Eos % (Auto) 0.0 % (0.0-4.3) 07/20/19 08:23 Baso % (Auto) 0.3 % (0.0-1.8) 07/20/19 08:23 Lymph # 0.9 K/mm3 (1.2-5.4) L 07/20/19 08:23 [place] # 0.7 K/mm3 (0.0-0.8) 07/20/19 08:23 Eos # 0.0 K/mm3 (0.0-0.4) 07/20/19 08:23 Baso # 0.0 K/mm3 (0.0-0.1) 07/20/19 08:23 Seg Neutrophils % 77.6 % (40.0-70.0) H 07/20/19 08:23 Seg Neutrophils # 5.7 K/mm3 (1.8-7.7) 07/20/19 08:23 PT 20.0 Sec. (12.2-14.9) H 07/20/19 08:23 INR 1.73 (0.87-1.13) H 07/20/19 08:23 APTT 38.3 Sec. (24.2-36.6) H 07/20/19 08:23 Sodium 134 mmol/L (137-145) L 07/22/19 05:56 Potassium 4.6 mmol/L (3.6-5.0) 07/22/19 05:56 Chloride 97.8 mmol/L (98-107) L 07/22/19 05:56 Carbon Dioxide 22 mmol/L (22-30) 07/22/19 05:56 Anion Gap 19 mmol/L 07/22/19 05:56 BUN 51 mg/dL (9-20) H 07/22/19 05:56 Creatinine 2.4 mg/dL (0.8-1.5) H 07/22/19 05:56 Estimated GFR 34 ml/min 07/22/19 05:56 BUN/Creatinine Ratio 21 % 07/22/19 05:56 Glucose 119 mg/dL (75-100) H 07/22/19 05:56 POC Glucose 169 (70-105) H 07/22/19 16:10 Calcium 8.0 mg/dL (8.4-10.2) L 07/22/19 05:56 Troponin T 0.018 ng/mL (0.00-0.029) 07/19/19 07:35 Troponin T 0.020 ng/mL (0.00-0.029) 07/19/19 07:35 Digoxin 0.3 ng/mL (0.9-2.0) L 07/19/19 10:08 AFB Identification 07/20/19 Unknown Active Medications - Current Medications Current Medications: Generic Name Dose Route Start Last Admin Trade Name Freq PRN Reason Stop Dose Admin Acetaminophen 650 mg 07/19/19 01:38 07/21/19 22:08 Tylenol PO 650 mg Q4H PRN Administration Pain MILD(1-3)/Fever >100.5/TRUJILLO Albuterol/Ipratropium 1 ampul 07/19/19 20:00 07/22/19 14:31 Duoneb *Not For Prn Use* IH Not Given TIDRT SOUMYA Apixaban 5 mg 07/21/19 22:00 07/22/19 10:02 Eliquis PO 5 mg BID SOUMYA Administration Protocol Aspirin 81 mg 07/22/19 10:00 07/22/19 10:02 Baby Aspirin PO 81 mg QDAY SOUMYA Administration Atorvastatin Calcium 40 mg 07/19/19 22:00 07/21/19 22:09 Lipitor PO 40 mg QHS SOUMYA Administration Colchicine 0.6 mg 07/21/19 17:00 07/22/19 10:02 Colchicine PO 0.6 mg QDAY SOUMYA Administration Dextrose 0 ml 07/19/19 03:00 07/19/19 23:01 D50w (25gm) Syringe IV 20 ml Q30MIN PRN Administration Hypoglycemia Protocol Digoxin 0.25 mg 07/22/19 17:00 07/22/19 17:08 Lanoxin PO 0.25 mg Q48H SOUMYA Administration Docusate Sodium 100 mg 07/19/19 10:00 07/22/19 10:02 Colace PO 100 mg BID SOUMYA Administration Furosemide 40 mg 07/22/19 06:00 07/22/19 17:09 Lasix IV 40 mg 0600,1800 SOUMYA Administration Guaifenesin 600 mg 07/21/19 22:00 07/22/19 10:02 Mucinex Er PO 600 mg BID SOUMYA Administration Magnesium Hydroxide 30 ml 07/19/19 01:38 07/22/19 10:02 Milk Of Magnesia PO 30 ml Q4H PRN Administration Constipation Morphine Sulfate 2 mg 07/19/19 01:38 07/22/19 05:31 Morphine IV 2 mg Q4H PRN Administration Pain, Moderate (4-6) Morphine Sulfate 2 mg 07/19/19 01:38 Morphine IV Q5MIN PRN Chest Pain unrelieved by NTG Nicotine 14 mg 07/19/19 10:00 07/22/19 10:03 Habitrol TD Not Given QDAY SOUMYA Nitroglycerin 0.4 mg 07/19/19 01:38 Nitrostat SL Q5M PRN Chest Pain Ondansetron HCl 4 mg 07/19/19 01:38 Zofran IV Q8H PRN Nausea And Vomiting Oxycodone HCl 5 mg 07/21/19 17:20 Roxicodone PO Q6H PRN Pain , Severe (7-10) Oxycodone/Acetaminophen 1 tab 07/21/19 17:21 07/22/19 18:00 Percocet 5/325 PO 1 tab Q6H PRN Administration Pain , Severe (7-10) Prednisone 20 mg 07/19/19 10:00 07/22/19 10:02 Deltasone PO 20 mg QDAY SOUMYA Administration Sodium Bicarbonate 1,300 mg 07/19/19 10:00 07/22/19 10:02 Sodium Bicarbonate PO 1,300 mg BID SOUMYA Administration Sodium Chloride 10 ml 07/19/19 10:00 07/22/19 10:03 Sodium Chloride Flush Syringe 10 Ml IV 10 ml BID SOUMYA Administration Sodium Chloride 10 ml 07/19/19 01:38 07/22/19 05:32 Sodium Chloride Flush Syringe 10 Ml IV 10 ml PRN PRN Administration LINE FLUSH Nutrition/Malnutrition Assess - Dietary Evaluation Nutrition/Malnutrition Findings: Nutrition Notes Start: 07/20/19 12:59 Freq: Status: Active Protocol: Document 07/22/19 12:33 ABEL (Rec: 07/22/19 12:43 ABEL [id number]) Co-Sign 07/22/19 12:33 KH Nutrition Notes Initial or Follow up Reassessment Current Diagnosis COPD,Diabetes,Hypertension, Heart Failure Other Pertinent Diagnosis Stage 3 Wound, A-fib, Hx of CVA, Asthma, Sleep Apnea, Bilat Edema Current Diet Cardiac/Consistent CHO Labs/Tests BUN 51 Cr 2.4 BG 119 Pertinent Medications Prednisone Lasix Lipitor Eliquis Height 6 ft 1 in Weight 85.4 kg [place] Body Weight (kg) 83.63 BMI 24.8 Weight change and time frame Wt change noted Subjective/Other Information F/U for PO and ONS intakes. Pt ate about 25% of breakfast and ate nothing yesterday. Pt stated his appetite is sporatic. Pt just started glucerna and hasn't drank one yet. Percent of energy/protein needs met: 22%/25% Burn Absent Trauma Absent GI Symptoms Nausea Current % PO Negligible Minimum of two criteria Yes Energy Intake (severe) < or equal to 50% Estimated Energy Requirement > or equal to 5 days Interpretation of Weight Loss (severe) >2% in 1 week Muscle Mass Mild Depletion (non-severe) Fluid Accumulation Moderate to Severe (severe) #3 Nutrition Diagnosis Increased nutrient needs ( specify in comment below) Comments: Protein Diagnosis Progress(for reassessment Continues documentation) #2 Nutrition Diagnosis Food and nutrition-related knowledge deficit Diagnosis Progress(for reassessment Resolved documentation) #1 Nutrition Diagnosis Malnutrition Diagnosis Progress(for reassessment Continues documentation) Is patient on ventilator? No Is Patient Ambulatory and/or Out of Bed Yes REE-([facility]-ambulatory/OOB) [ [id number] NUTR.[id number]] Calculation Used for Recommendations [facility] Additional Notes Protein: 102-126g/kg (1.2-1.5g /kg) Fluid: 1500-1900ml/day Nutrition Intervention Change Diet Order: Cardiac/Consistent CHO Add Supplement/Snack (indicate name/kcal Glucerna Vanilla and Chocolate /protein ) BID Provides kCal: 440 Provides Protein (gm) 20 Goal #1 Meet >80% of energy and protein needs Anticipated Discharge Needs: Cardiac/Consistent CHO Follow-Up By: 07/26/19 Additional Comments F/U for PO and ONS intakes
[2019-07-23] MEDS: IPRATROPIUM/ALBUTEROL SULFATE 3 ML AMPUL.NEB IH SCH ×3 (08:02→20:46)
--- NOTE | 2019-07-23 08:21 | XRay Report ---
CHEST 1 VIEW INDICATION / CLINICAL INFORMATION: [place]. COMPARISON: 07/20/2019 FINDINGS: SUPPORT DEVICES: ICD remains on the left. HEART / MEDIASTINUM: Moderately enlarged but stable. LUNGS / PLEURA: The left lung is clear. Right basilar consolidation and associated effusion are uncha nged. Right upper lung remains clear. No edema is seen. No pneumothorax. ADDITIONAL FINDINGS: No significant additional findings. IMPRESSION: 1. No significant change Signer Name: Barrett Sherman MD Signed: 07/23/2019 8:17 AM Workstation Name: [id number]
[2019-07-23] MEDS: FUROSEMIDE 40 MG/4 ML INJ IV SCH (09:40)
[2019-07-23] MEDS: ASPIRIN 81 MG TAB CHEW PO SCH (09:41)
[2019-07-23] MEDS: SODIUM BICARBONATE 650 MG TAB PO SCH (09:41)
[2019-07-23] MEDS: DOCUSATE SODIUM 100 MG CAP PO SCH ×3 (09:41→21:50)
[2019-07-23] MEDS: COLCHICINE 0.6 MG CAP PO SCH (09:41)
[2019-07-23] MEDS: NICOTINE 14 MG/24 HR PATCH TD SCH ×2 (09:41→09:47)
[2019-07-23] MEDS: guaiFENesin ER 600 MG TAB PO SCH ×2 (09:41→21:35)
[2019-07-23] MEDS: METOPROLOL TARTRATE 25 MG TAB PO SCH ×3 (09:41→21:35)
[2019-07-23] MEDS: APIXABAN 5 MG TAB PO SCH ×2 (09:41→21:35)
[2019-07-23] MEDS: predniSONE 20 MG TAB PO SCH (09:42)
--- NOTE | 2019-07-23 10:04 | Progress Note ---
Assessment and Plan Recurrent Pleural effusion s/p thoracentesis Chronic systolic heart failure Acute on chronic renal failure LLE ulcer Chronic atrial fibrillation on Eliquis for oral anticoagulation as an outpatient rate controlled with metoprolol and digoxin dig level 0.3 on current presentation Hx of Nonischemic cardiomyopathy EF 15-20% by echo 11/2018 Presence of the ICD recent interrogation revealed a normal functioning device Essential hypertension Type 2 diabetes mellitus Chronic obstructive pulmonary disease Noncompliant with outpatient follow ups Recommendations: Daily weight. Fluid/sodium restriction. Continue medical therapy for chronic systolic heart failure and chronic atrial fibrillation. Patient is stable cardiac bennett. We will follow intermittently. Subjective Date of service: 07/23/19 Principal diagnosis: Dyspnea; Large right pleural effusion; Tobacco use dis order; COPD; KAREN Interval history: Patient is resting in bed comfortably. Afib with a well controlled ventricular rate on telemetry. Objective Vital Signs Temp Pulse Pulse Resp Resp BP BP 07/23/19 08:54 97.8 F 82 18 109/77 07/23/19 08:27 98.2 F 79 20 100/66 07/23/19 08:04 07/23/19 08:03 85 18 07/23/19 03:45 98.0 F 69 18 89/51 07/23/19 02:00 97 H 07/23/19 00:01 20 07/22/19 23:31 20 07/22/19 23:29 101 H 101/58 07/22/19 23:27 98.1 F 101 H 18 101/58 07/22/19 22:59 98.2 F 89 16 106/72 07/22/19 20:23 98.4 F 53 L 18 97/64 07/22/19 20:20 07/22/19 20:10 71 18 07/22/19 20:00 66 20 07/22/19 19:14 98.4 F 67 24 114/80 07/22/19 17:55 86 121/87 07/22/19 17:08 68 98/72 07/22/19 15:46 98.0 F 68 18 98/72 07/22/19 14:00 54 L 16 07/22/19 11:45 98.9 F 67 18 109/73 Pulse Ox 07/23/19 08:54 95 07/23/19 08:27 99 07/23/19 08:04 96 07/23/19 08:03 07/23/19 03:45 97 07/23/19 02:00 07/23/19 00:01 07/22/19 23:31 07/22/19 23:29 07/22/19 23:27 91 07/22/19 22:59 95 07/22/19 20:23 91 07/22/19 20:20 98 07/22/19 20:10 07/22/19 20:00 07/22/19 19:14 94 07/22/19 17:55 93 07/22/19 17:08 07/22/19 15:46 93 07/22/19 14:00 07/22/19 11:45 95 - Physical Examination General: No Apparent Distress HEENT: Positive: PERRL Neck: Positive: trachea midline Cardiac: Positive: irregularly irregular Lungs: Positive: Decreased Breath Sounds Neuro: Positive: Grossly Intact Extremities: Absent: edema - Labs and Meds Comprehensive Metabolic Panel 07/23/19 Range/Units 07:17 Sodium 136 L (137-145) mmol/L Potassium 4.3 (3.6-5.0) mmol/L Chloride 95.2 L (98-107) mmol/L Carbon Dioxide 26 (22-30) mmol/L BUN 48 H (9-20) mg/dL Creatinine 2.1 H (0.8-1.5) mg/dL Glucose 84 (75-100) mg/dL Calcium 8.0 L (8.4-10.2) mg/dL - Allied health notes Allied health notes reviewed: nursing
--- NOTE | 2019-07-23 11:39 | Progress Note ---
Assessment and Plan Large Right pleural effusion Atypical chest pain Tobacco use disorder/Nicotine dependence Acute on chronic systolic heart failure h/o chronic Respiratory failure Sleep apnea DM type 2 Anemia Left leg Diabetic Ulcer Metabolic acidosis ESTEVAN on CKD Continue all current care On going discussions on need for smoking cessation Continue bronchodilators per protocol Continue to increase activity Outpatient pulmonary follow up on discharge Discharge planning per primary service -Supplemental oxygen to keep O2 sats>90%, as indicated -Continue Eliquis -Chronic COPD medications -Follow up pleural fluid studies, including cytology - Continue heart failure measures -Avoid nephrotoxins, monitor electrolytes and address as needed -Continue on nocturnal BIPAP 08/06, back up rate 12, FIO2 30% -Management of atrial fibrillation per Cardiology -Accuchecks with glycemic control, avoid hypoglycemia -Nicotine withdrawal precautions -Need for adherence to medical therapy encouraged -Influenza and pneumonia vaccination per protocol - Continue Wound care for left foot ulcer, being evaluated by vascular re PAD -Continue all supportive care Subjective Date of service: 07/23/19 Principal diagnosis: Dyspnea; Large right pleural effusion; Tobacco use disorder; COPD; KAREN Interval history: Patient is seen today for: Dyspnea,; Large right pleural effusion: Tobacco use disorder: COPD; Sleep apnea Seen and examined at bedside; 24hour events reviewed; nursing and respiratory care staff consulted; no adverse overnight events reported to me; Vitals, labs, medications, chart reviewed. s/p Thoracentesis- feels better; continues to remain compliant with BIPAP overnight; denies any chest pain, no shortness of breath, no fevers or chills. Pain in the left foot, improving Objective Vital Signs - 12hr 07/23/19 07/23/19 07/23/19 00:01 02:00 03:45 Temperature 98.0 F Pulse Rate 97 H 69 Pulse Rate [ Anterior Bilateral Throughout] Respiratory 20 18 Rate Respiratory Rate [Anterior Bilateral Throughout] Blood Pressure 89/51 O2 Sat by Pulse 97 Oximetry 07/23/19 07/23/19 07/23/19 08:03 08:04 08:27 Temperature 98.2 F Pulse Rate 79 Pulse Rate [ 85 Anterior Bilateral Throughout] Respiratory 20 Rate Respiratory 18 Rate [Anterior Bilateral Throughout] Blood Pressure 100/66 O2 Sat by Pulse 96 99 Oximetry 07/23/19 08:54 Temperature 97.8 F Pulse Rate 82 Pulse Rate [ Anterior Bilateral Throughout] Respiratory 18 Rate Respiratory Rate [Anterior Bilateral Throughout] Blood Pressure 109/77 O2 Sat by Pulse 95 Oximetry Constitutional: no acute distress, alert Eyes: non-icteric ENT: oropharynx moist Neck: supple, no lymphadenopathy, no JVD Effort: normal Ascultation: Right: rhonchi, Bilateral: diminished breath sounds, other (poor AE right lung ) Percussion: Right: dull (base) Cardiovascular: irregular rhythm, murmur noted, other (S1,S2 chest wall cardiac device) Gastrointestinal: normoactive bowel sounds, soft, non-tender, other (mild distension, non tender) Integumentary: normal Extremities: no cyanosis, cool (left foot ulcer) Neurologic: normal mental status, pupils equal and round, CN II-XII normal Psychiatric: mood appropriate, affect normal, depressed CBC and BMP: 07/20/19 08:23 07/24/19 05:20 ABG, PT/INR, D-dimer: PT/INR, D-dimer PT 20.0 Sec. (12.2-14.9) H 07/20/19 08:23 INR 1.73 (0.87-1.13) H 07/20/19 08:23 Abnormal lab findings: Abnormal Labs 07/18/19 07/18/19 07/18/19 23:33 23:33 23:33 Hgb 11.5 L Hct 34.9 L RDW 19.4 H Lymph % (Auto) [place] % (Auto) 14.8 H Lymph # 0.8 L Seg Neutrophils % PT 16.1 H INR 1.31 H APTT Sodium 135 L Potassium Chloride Carbon Dioxide 17 L BUN 22 H Creatinine Glucose POC Glucose Calcium NT-Pro-B Natriuret Pep Digoxin 07/19/19 07/19/19 07/19/19 02:09 02:09 10:08 Hgb Hct RDW 19.9 H Lymph % (Auto) [place] % (Auto) 13.8 H Lymph # Seg Neutrophils % PT INR APTT Sodium Potassium Chloride Carbon Dioxide 18 L BUN 23 H Creatinine 1.6 H Glucose 101 H POC Glucose Calcium NT-Pro-B Natriuret Pep Digoxin 0.3 L 07/19/19 07/19/19 07/19/19 16:33 22:30 22:43 Hgb Hct RDW Lymph % (Auto) [place] % (Auto) Lymph # Seg Neutrophils % PT INR APTT Sodium Potassium Chloride Carbon Dioxide BUN Creatinine Glucose 46 L POC Glucose 50 L 45 L Calcium NT-Pro-B Natriuret Pep Digoxin 07/20/19 07/20/19 07/20/19 00:29 07:38 08:23 Hgb Hct RDW 19.3 H Lymph % (Auto) 12.2 L [place] % (Auto) 9.9 H Lymph # 0.9 L Seg Neutrophils % 77.6 H PT INR APTT Sodium Potassium Chloride Carbon Dioxide BUN Creatinine Glucose POC Glucose 66 L 155 H Calcium NT-Pro-B Natriuret Pep Digoxin 07/20/19 07/20/19 07/20/19 08:23 08:23 12:10 Hgb Hct RDW Lymph % (Auto) [place] % (Auto) Lymph # Seg Neutrophils % PT 20.0 H INR 1.73 H APTT 38.3 H Sodium 136 L Potassium Chloride 97.4 L Carbon Dioxide 18 L BUN 39 H Creatinine 2.4 H Glucose 151 H POC Glucose 148 H Calcium NT-Pro-B Natriuret Pep Digoxin 07/20/19 07/20/19 07/21/19 16:29 20:31 09:07 Hgb Hct RDW Lymph % (Auto) [place] % (Auto) Lymph # Seg Neutrophils % PT INR APTT Sodium Potassium Chloride Carbon Dioxide BUN Creatinine Glucose POC Glucose 137 H 167 H 128 H Calcium NT-Pro-B Natriuret Pep Digoxin 07/21/19 07/21/19 07/21/19 12:16 16:59 17:35 Hgb Hct RDW Lymph % (Auto) [place] % (Auto) Lymph # Seg Neutrophils % PT INR APTT Sodium 132 L Potassium 5.1 H Chloride 95.9 L Carbon Dioxide BUN 49 H Creatinine 2.6 H Glucose 173 H POC Glucose 169 H 195 H Calcium 7.9 L NT-Pro-B Natriuret Pep Digoxin 07/21/19 07/21/19 07/22/19 17:35 21:27 05:56 Hgb Hct RDW Lymph % (Auto) [place] % (Auto) Lymph # Seg Neutrophils % PT INR APTT Sodium 134 L Potassium Chloride 97.8 L Carbon Dioxide BUN 51 H Creatinine 2.4 H Glucose 119 H POC Glucose 182 H Calcium 8.0 L NT-Pro-B Natriuret Pep 73277 H Digoxin 07/22/19 07/22/19 07/22/19 08:59 12:55 16:10 Hgb Hct RDW Lymph % (Auto) [place] % (Auto) Lymph # Seg Neutrophils % PT INR APTT Sodium Potassium Chloride Carbon Dioxide BUN Creatinine Glucose POC Glucose 122 H 173 H 169 H Calcium NT-Pro-B Natriuret Pep Digoxin 07/22/19 07/22/19 07/23/19 20:38 22:37 07:17 Hgb Hct RDW Lymph % (Auto) [place] % (Auto) Lymph # Seg Neutrophils % PT INR APTT Sodium 136 L Potassium Chloride 95.2 L Carbon Dioxide BUN 48 H Creatinine 2.1 H Glucose POC Glucose 185 H 196 H Calcium 8.0 L NT-Pro-B Natriuret Pep 75341 H Digoxin Allied health notes reviewed: nursing
--- NOTE | 2019-07-23 17:14 | Progress Note ---
Assessment and Plan Patient Problems (1) Acute kidney injury superimposed on chronic kidney disease Current Visit: Yes Status: Acute Plan to address problem: Acute kidney injury superimposed on chronic kidney disease creatinine is improved but apparent baseline I reviewed chest x-ray with pulmonary congestion Continue diuretics. Creatinine is improving Received 60 mg IV Lasix 1 Continue 40 mg IV twice a day (2) Pleural effusion Current Visit: Yes Status: Acute Plan to address problem: Pleural effusion s/p thoracentesis resume diuretics. (3) Hyponatremia Current Visit: Yes Status: Acute Plan to address problem: Hyponatremia mild fluid restriction given history of congestive heart failure (4) Anemia Current Visit: Yes Status: Acute Plan to address problem: Moderate anemia hemoglobin 12.7 g per DL etiology secondary to chronic inflammation Monitor CBC Subjective Principal diagnosis: Dyspnea; Large right pleural effusion; Tobacco use disorder; COPD; KAREN Interval history: 54-year-old gentleman with medical history of atrial fibrillation, chronic kidney disease, COPD, congestive heart failure with markedly reduced ejection fraction admitted with complaints of shortness of breath chest x-ray showed left pleural effusion status post thoracentesis. He reports positive orthopnea PND. He does some extremity edema also has a left leg ulcer. He has not been on any diuretics that show worsening renal function baseline creatinine 1.5-1.6 with recent creatinine is 2.4 mg/dl . Denies any nausea vomiting abdominal pain denies any headaches fevers chills Patient seen today reports shortness of breath is improved I attest I saw the patient on dialysis Still has lower extremity edema Remains on oxygen Objective - Vital Signs Vital signs: Vital Signs - 12hr 07/23/19 07/23/19 07/23/19 08:03 08:04 08:27 Temperature 98.2 F Pulse Rate 79 Pulse Rate [ 85 Anterior Bilateral Throughout] Respiratory 20 Rate Respiratory 18 Rate [Anterior Bilateral Throughout] Blood Pressure 100/66 O2 Sat by Pulse 96 99 Oximetry 07/23/19 07/23/19 07/23/19 08:54 10:00 12:56 Temperature 97.8 F 98.2 F Pulse Rate 82 79 79 Pulse Rate [ Anterior Bilateral Throughout] Respiratory 18 18 Rate Respiratory Rate [Anterior Bilateral Throughout] Blood Pressure 109/77 124/86 O2 Sat by Pulse 95 94 Oximetry 07/23/19 07/23/19 14:13 16:38 Temperature 97.9 F Pulse Rate 69 Pulse Rate [ 86 Anterior Bilateral Throughout] Respiratory 18 Rate Respiratory 18 Rate [Anterior Bilateral Throughout] Blood Pressure 107/75 O2 Sat by Pulse 93 Oximetry - General Appearance General appearance: well-developed, well-nourished EENT: ATNC, PERRL Neck: JVD Respiratory: Present: Decreased Breath Sounds Cardiology: regular, S1S2 Gastrointestinal: normal, normoactive bowel sounds Neurologic: no focal deficit, alert and oriented x3 Musculoskeletal: joint swelling Psychiatric: mood/affect appropriate - Lab 07/20/19 08:23 07/23/19 07:17 Most recent lab results Calcium 8.0 mg/dL (8.4-10.2) L 07/23/19 07:17 - Imaging Chest x-ray: image reviewed (I reviewed chest x-ray with edema) Medications & Allergies - Medications Allergies/Adverse Reactions: Allergies Penicillins Allergy (Verified 03/05/19 22:41) Itching strawberry Allergy (Verified 03/05/19 22:41) Hives Home Medications: Home Medications Medication Instructions Recorded Confirmed Last Taken Type Apixaban [Eliquis] 1 tab PO BID #60 tablet 03/14/19 07/19/19 07/17/19 Rx Aspirin [Aspirin BABY CHEW TAB] 81 mg PO QDAY #30 tab.chew 03/14/19 07/19/19 07/19/19 15:57 Rx AtorvaSTATin [Lipitor] 40 mg PO QHS #30 tablet 03/14/19 07/19/19 07/19/19 15:58 Rx guaiFENesin ER [Mucinex ER] 600 mg PO BID #60 tablet 03/14/19 07/19/19 Unknown Rx Colchicine 0.6 mg PO QDAY #10 capsule 03/21/19 07/19/19 07/17/19 Rx Nicotine [Habitrol] 14 mg TD QDAY #30 patch 03/21/19 07/19/19 07/19/19 15:53 Rx predniSONE [Deltasone] 20 mg PO QDAY #7 tablet 03/21/19 07/19/19 07/17/19 Rx Digoxin [Lanoxin] 0.25 mg PO DAILY@1700 #30 tablet 05/05/19 07/19/19 07/18/19 Rx Acetaminophen [Acetaminophen TAB] 2 tab PO Q4H PRN #15 tablet 06/25/19 07/19/19 07/19/19 15:58 Rx Metoprolol [Lopressor TAB] 75 mg PO TID #90 tablet 06/25/19 07/19/19 07/19/19 15:53 Rx Oxycodone HCl/Acetaminophen 1 each PO Q6HR PRN #20 tablet 06/25/19 07/19/19 07/16/19 Rx [Percocet 10/325 mg] Sodium Bicarbonate 1,300 mg PO BID #90 tablet 06/25/19 07/19/19 07/19/19 15:53 Rx Torsemide [Demadex] 100 mg PO DAILY@0600 #30 tablet 06/25/19 07/19/19 Unknown Rx Active Medications: Generic Name Dose Route Start Last Admin Trade Name Freq PRN Reason Stop Dose Admin Acetaminophen 650 mg 07/19/19 01:38 07/21/19 22:08 Tylenol PO 650 mg Q4H PRN Administration Pain MILD(1-3)/Fever >100.5/TRUJILLO Albuterol/Ipratropium 1 ampul 07/19/19 20:00 07/23/19 14:12 Duoneb *Not For Prn Use* IH 1 ampul TIDRT SOUMYA Administration Apixaban 5 mg 07/21/19 22:00 07/23/19 09:41 Eliquis PO 5 mg BID SOUMYA Administration Protocol Aspirin 81 mg 07/22/19 10:00 07/23/19 09:41 Baby Aspirin PO 81 mg QDAY SOUMYA Administration Atorvastatin Calcium 40 mg 07/19/19 22:00 07/22/19 23:29 Lipitor PO 40 mg QHS SOUMYA Administration Colchicine 0.6 mg 07/21/19 17:00 07/23/19 09:41 Colchicine PO 0.6 mg QDAY SOUMYA Administration Dextrose 0 ml 07/19/19 03:00 07/19/19 23:01 D50w (25gm) Syringe IV 20 ml Q30MIN PRN Administration Hypoglycemia Protocol Digoxin 0.25 mg 07/22/19 17:00 07/22/19 17:08 Lanoxin PO 0.25 mg Q48H SOUMYA Administration Docusate Sodium 100 mg 07/19/19 10:00 07/23/19 09:41 Colace PO 100 mg BID SOUMYA Administration Furosemide 40 mg 07/22/19 06:00 07/23/19 09:40 Lasix IV Not Given 0600,1800 [facility] Guaifenesin 600 mg 07/21/19 22:00 07/23/19 09:41 Mucinex Er PO 600 mg BID SOUMYA Administration Magnesium Hydroxide 30 ml 07/19/19 01:38 07/22/19 10:02 Milk Of Magnesia PO 30 ml Q4H PRN Administration Constipation Metoprolol Tartrate 25 mg 07/22/19 20:00 07/23/19 09:41 Metoprolol PO 25 mg TID [facility] Administration Morphine Sulfate 2 mg 07/19/19 01:38 07/22/19 23:31 Morphine IV 2 mg Q4H PRN Administration Pain, Moderate (4-6) Morphine Sulfate 2 mg 07/19/19 01:38 Morphine IV Q5MIN PRN Chest Pain unrelieved by NTG Nicotine 14 mg 07/19/19 10:00 07/23/19 09:47 Habitrol TD Not Given QDAY [facility] Nitroglycerin 0.4 mg 07/19/19 01:38 Nitrostat SL Q5M PRN Chest Pain Ondansetron HCl 4 mg 07/19/19 01:38 Zofran IV Q8H PRN Nausea And Vomiting Oxycodone HCl 5 mg 07/21/19 17:20 Roxicodone PO Q6H PRN Pain , Severe (7-10) Oxycodone/Acetaminophen 1 tab 07/21/19 17:21 07/22/19 18:00 Percocet 5/325 PO 1 tab Q6H PRN Administration Pain , Severe (7-10) Prednisone 20 mg 07/19/19 10:00 07/23/19 09:42 Deltasone PO 20 mg QDAY [facility] Administration Sodium Chloride 10 ml 07/19/19 10:00 07/23/19 09:42 Sodium Chloride Flush Syringe 10 Ml IV 10 ml BID SOUMYA Administration Sodium Chloride 10 ml 07/19/19 01:38 07/22/19 05:32 Sodium Chloride Flush Syringe 10 Ml IV 10 ml PRN PRN Administration LINE FLUSH
--- NOTE | 2019-07-23 17:15 | Progress Note ---
Assessment and Plan Assessment and plan: Patient is a 54-year-old man with a plethora of serious co-morbidities including Afib on Eliquis, CKD 3, CVA, KAREN, COPD, CHF EF 15-20%, hypertension and Recurrent right sided CHF related pleural effusion who presented to [facility] ED with SOB and chest pains. He was found to have a very large right pleural effusion and had thoracentesis performed 07/20/2019. He admits to not following up with lung doctors as instructed. Acute hypoxic respiratory failure, poa - continue supplemental O2 and Continue nocturnal BIPAP 08/06, back up rate 12, FIO2 30%, Pulm is following Recurrent right pleural effusion s/p thoracentesis, symptoms improved ARF on CKD 3, due to vasomotor nephropathy: stop iv lasix bid, consult nephrology and reviewed renal ultrasound on 06/2019 when Cr went up to 2.2 Syncope, vasovagal in nature: continue telemetry Chronic systolic heart failure with Hx of Nonischemic cardiomyopathy, EF 15-20% by echo 11/2018: continue AICD monitoring, Fluid/sodium restriction, Daily weight.. Presence of the ICD: recent interrogation revealed a normal functioning device Chronic nonhealing Ulcer of left ankle, DM related: local wound care therapy Chest pain, atypical, evaluate by Cardiology, most likely related to pleural effusion Chronic atrial fibrillation-on Eliquis for oral anticoagulation as an outpatient; rate controlled with metoprolol and digoxin, Resume Eliquis Essential hypertension: low salt diet, treat with antihypertensives Type 2 diabetes mellitus: ada diet, ssi, bmp Chronic obstructive pulmonary disease, continue nebs Noncompliant with outpatient follow ups: counseling done DVT prophylaxis-Patient currently on anticoagulation. 8 beat run of NSVT: Cardiology is following, follow electrolytes closely full code Disposition: continue inpatient care, d/c once renal function improves, close to 1.5 baseline History Interval history: Patient was seen and examined. Follow-up on current diagnosis of recurrent pleural effusion. No overnight events reported to me. Patient denies any chest pain, shortness breath, nausea/vomiting or severe headaches. Imaging, nursing note, chart, labs and old chart reviewed. Discussed with patient. Hospitalist Physical - Physical exam Narrative exam: Gen: thin chronically ill appearing, NAD, Awake, Alert, Orientated HEENT: NCAT, EOMI, PERRL, OP Clear Neck: supple, no adenopathy, no thyromegaly, no JVD CVS/Heart: irregular irregular, normal S1S2, pulses present bilaterally Chest/Lungs: right diminished at base, Symmetrical chest expansion, good air entry bilaterally GI/Abdomen: soft, NTND, good bowel sounds, no guarding or rebound /Bladder: no suprapubic tenderness, no CVA or paraspinal tenderness Extermity/Skin: no c/c/e, no obvious rash MSK: FROM x 4 Neuro: CN 2-12 grossly intact, no new focal deficits Psych: calm - Constitutional Vitals: Temp Pulse Resp BP Pulse Ox 97.9 F 69 18 107/75 93 07/23/19 16:38 07/23/19 16:38 07/23/19 16:38 07/23/19 16:38 07/23/19 16:38 General appearance: Absent: mild distress (left ankle pain) Results - Labs CBC & Chem 7: 07/20/19 08:23 07/23/19 07:17 Labs: Laboratory Last Values WBC 7.4 K/mm3 (4.5-11.0) 07/20/19 08:23 RBC 4.36 M/mm3 (3.65-5.03) 07/20/19 08:23 Hgb 12.7 gm/dl (11.8-15.2) 07/20/19 08:23 Hct 39.6 % (35.5-45.6) 07/20/19 08:23 MCV 91 fl (84-94) 07/20/19 08:23 MCH 29 pg (28-32) 07/20/19 08:23 MCHC 32 % (32-34) 07/20/19 08:23 RDW 19.3 % (13.2-15.2) H 07/20/19 08:23 Plt Count 184 K/mm3 (140-440) 07/20/19 08:23 Lymph % (Auto) 12.2 % (13.4-35.0) L 07/20/19 08:23 Cannon % (Auto) 9.9 % (0.0-7.3) H 07/20/19 08:23 Eos % (Auto) 0.0 % (0.0-4.3) 07/20/19 08:23 Baso % (Auto) 0.3 % (0.0-1.8) 07/20/19 08:23 Lymph # 0.9 K/mm3 (1.2-5.4) L 07/20/19 08:23 Cannon # 0.7 K/mm3 (0.0-0.8) 07/20/19 08:23 Eos # 0.0 K/mm3 (0.0-0.4) 07/20/19 08:23 Baso # 0.0 K/mm3 (0.0-0.1) 07/20/19 08:23 Seg Neutrophils % 77.6 % (40.0-70.0) H 07/20/19 08:23 Seg Neutrophils # 5.7 K/mm3 (1.8-7.7) 07/20/19 08:23 PT 20.0 Sec. (12.2-14.9) H 07/20/19 08:23 INR 1.73 (0.87-1.13) H 07/20/19 08:23 APTT 38.3 Sec. (24.2-36.6) H 07/20/19 08:23 Sodium 136 mmol/L (137-145) L 07/23/19 07:17 Potassium 4.3 mmol/L (3.6-5.0) 07/23/19 07:17 Chloride 95.2 mmol/L (98-107) L 07/23/19 07:17 Carbon Dioxide 26 mmol/L (22-30) 07/23/19 07:17 Anion Gap 19 mmol/L 07/23/19 07:17 BUN 48 mg/dL (9-20) H 07/23/19 07:17 Creatinine 2.1 mg/dL (0.8-1.5) H 07/23/19 07:17 Estimated GFR 40 ml/min 07/23/19 07:17 BUN/Creatinine Ratio 23 % 07/23/19 07:17 Glucose 84 mg/dL (75-100) 07/23/19 07:17 POC Glucose 89 (70-105) 07/23/19 09:02 Calcium 8.0 mg/dL (8.4-10.2) L 07/23/19 07:17 Troponin T 0.018 ng/mL (0.00-0.029) 07/19/19 07:35 Troponin T 0.020 ng/mL (0.00-0.029) 07/19/19 07:35 NT-Pro-B Natriuret Pep 38086 pg/mL (0-900) H 07/23/19 07:17 Digoxin 0.3 ng/mL (0.9-2.0) L 07/19/19 10:08 AFB Identification 07/20/19 Unknown Active Medications - Current Medications Current Medications: Generic Name Dose Route Start Last Admin Trade Name Freq PRN Reason Stop Dose Admin Acetaminophen 650 mg 07/19/19 01:38 07/21/19 22:08 Tylenol PO 650 mg Q4H PRN Administration Pain MILD(1-3)/Fever >100.5/TRUJILLO Albuterol/Ipratropium 1 ampul 07/19/19 20:00 07/23/19 14:12 Duoneb *Not For Prn Use* IH 1 ampul TIDRT SOUMYA Administration Apixaban 5 mg 07/21/19 22:00 07/23/19 09:41 Eliquis PO 5 mg BID SOUMYA Administration Protocol Aspirin 81 mg 07/22/19 10:00 07/23/19 09:41 Baby Aspirin PO 81 mg QDAY SOUMYA Administration Atorvastatin Calcium 40 mg 07/19/19 22:00 07/22/19 23:29 Lipitor PO 40 mg QHS SOUMYA Administration Colchicine 0.6 mg 07/21/19 17:00 07/23/19 09:41 Colchicine PO 0.6 mg QDAY SOUMYA Administration Dextrose 0 ml 07/19/19 03:00 07/19/19 23:01 D50w (25gm) Syringe IV 20 ml Q30MIN PRN Administration Hypoglycemia Protocol Digoxin 0.25 mg 07/22/19 17:00 07/22/19 17:08 Lanoxin PO 0.25 mg Q48H SOUMYA Administration Docusate Sodium 100 mg 07/19/19 10:00 07/23/19 09:41 Colace PO 100 mg BID SOUMYA Administration Furosemide 40 mg 07/22/19 06:00 07/23/19 09:40 Lasix IV Not Given 0600,1800 [facility] Guaifenesin 600 mg 07/21/19 22:00 07/23/19 09:41 Mucinex Er PO 600 mg BID SOUMYA Administration Magnesium Hydroxide 30 ml 07/19/19 01:38 07/22/19 10:02 Milk Of Magnesia PO 30 ml Q4H PRN Administration Constipation Metoprolol Tartrate 25 mg 07/22/19 20:00 07/23/19 09:41 Metoprolol PO 25 mg TID SOUMYA Administration Morphine Sulfate 2 mg 07/19/19 01:38 07/22/19 23:31 Morphine IV 2 mg Q4H PRN Administration Pain, Moderate (4-6) Morphine Sulfate 2 mg 07/19/19 01:38 Morphine IV Q5MIN PRN Chest Pain unrelieved by NTG Nicotine 14 mg 07/19/19 10:00 07/23/19 09:47 Habitrol TD Not Given QDAY [facility] Nitroglycerin 0.4 mg 07/19/19 01:38 Nitrostat SL Q5M PRN Chest Pain Ondansetron HCl 4 mg 07/19/19 01:38 Zofran IV Q8H PRN Nausea And Vomiting Oxycodone HCl 5 mg 07/21/19 17:20 Roxicodone PO Q6H PRN Pain , Severe (7-10) Oxycodone/Acetaminophen 1 tab 07/21/19 17:21 07/22/19 18:00 Percocet 5/325 PO 1 tab Q6H PRN Administration Pain , Severe (7-10) Prednisone 20 mg 07/19/19 10:00 07/23/19 09:42 Deltasone PO 20 mg QDAY SOUMYA Administration Sodium Chloride 10 ml 07/19/19 10:00 07/23/19 09:42 Sodium Chloride Flush Syringe 10 Ml IV 10 ml BID SOUMYA Administration Sodium Chloride 10 ml 07/19/19 01:38 07/22/19 05:32 Sodium Chloride Flush Syringe 10 Ml IV 10 ml PRN PRN Administration LINE FLUSH Nutrition/Malnutrition Assess - Dietary Evaluation Nutrition/Malnutrition Findings: Nutrition Notes Start: 07/20/19 12:59 Freq: Status: Active Protocol: Document 07/22/19 12:33 ABEL (Rec: 07/22/19 12:43 ABEL [id number]) Co-Sign 07/22/19 12:33 KH Nutrition Notes Initial or Follow up Reassessment Current Diagnosis COPD,Diabetes,Hypertension, Heart Failure Other Pertinent Diagnosis Stage 3 Wound, A-fib, Hx of CVA, Asthma, Sleep Apnea, Bilat Edema Current Diet Cardiac/Consistent CHO Labs/Tests BUN 51 Cr 2.4 BG 119 Pertinent Medications Prednisone Lasix Lipitor Eliquis Height 6 ft 1 in Weight 85.4 kg Admire Body Weight (kg) 83.63 BMI 24.8 Weight change and time frame Wt change noted Subjective/Other Information F/U for PO and ONS intakes. Pt ate about 25% of breakfast and ate nothing yesterday. Pt stated his appetite is sporatic. Pt just started glucerna and hasn't drank one yet. Percent of energy/protein needs met: 22%/25% Burn Absent Trauma Absent GI Symptoms Nausea Current % PO Negligible Minimum of two criteria Yes Energy Intake (severe) < or equal to 50% Estimated Energy Requirement > or equal to 5 days Interpretation of Weight Loss (severe) >2% in 1 week Muscle Mass Mild Depletion (non-severe) Fluid Accumulation Moderate to Severe (severe) #3 Nutrition Diagnosis Increased nutrient needs ( specify in comment below) Comments: Protein Diagnosis Progress(for reassessment Continues documentation) #2 Nutrition Diagnosis Food and nutrition-related knowledge deficit Diagnosis Progress(for reassessment Resolved documentation) #1 Nutrition Diagnosis Malnutrition Diagnosis Progress(for reassessment Continues documentation) Is patient on ventilator? No Is Patient Ambulatory and/or Out of Bed Yes REE-([facility]-ambulatory/OOB) [ 2272.244 [id number]] Calculation Used for Recommendations [facility] Additional Notes Protein: 102-126g/kg (1.2-1.5g /kg) Fluid: 1500-1900ml/day Nutrition Intervention Change Diet Order: Cardiac/Consistent CHO Add Supplement/Snack (indicate name/kcal Glucerna Vanilla and Chocolate /protein ) BID Provides kCal: 440 Provides Protein (gm) 20 Goal #1 Meet >80% of energy and protein needs Anticipated Discharge Needs: Cardiac/Consistent CHO Follow-Up By: 07/26/19 Additional Comments F/U for PO and ONS intakes
--- NOTE | 2019-07-23 17:25 | Progress Note ---
Assessment and Plan Patient Problems (1) Acute kidney injury superimposed on chronic kidney disease Current Visit: Yes Status: Acute Plan to address problem: Acute kidney injury superimposed on chronic kidney disease creatinine is improved but apparent baseline I reviewed chest x-ray with pulmonary congestion Continue diuretics. Baseline creatinine 1.5 current creatinine is 2.1 Peak creatinine is 2.6 Creatinine is improving Received 60 mg IV Lasix 1 Continue 40 mg IV twice a day (2) Pleural effusion Current Visit: Yes Status: Acute Plan to address problem: Pleural effusion s/p thoracentesis resume diuretics. (3) Hyponatremia Current Visit: Yes Status: Acute Plan to address problem: Hyponatremia mild fluid restriction given history of congestive heart failure (4) Anemia Current Visit: Yes Status: Acute Plan to address problem: Moderate anemia hemoglobin 12.7 g per DL etiology secondary to chronic inflammation Monitor CBC Subjective Principal diagnosis: Dyspnea; Large right pleural effusion; Tobacco use disorder; COPD; KAREN Interval history: 54-year-old gentleman with medical history of atrial fibrillation, chronic kidney disease, COPD, congestive heart failure with markedly reduced ejection fraction admitted with complaints of shortness of breath chest x-ray showed left pleural effusion status post thoracentesis. He reports positive orthopnea PND. He does some extremity edema also has a left leg ulcer. He has not been on any diuretics that show worsening renal function baseline creatinine 1.5-1.6 with recent creatinine is 2.4 mg/dl . Denies any nausea vomiting abdominal pain denies any headaches fevers chills Patient seen today reports shortness of breath is improved Reasonable urine output. request double portion of meals ! Still has lower extremity edema Remains on oxygen Objective - Vital Signs Vital signs: Vital Signs - 12hr 07/23/19 07/23/19 07/23/19 08:03 08:04 08:27 Temperature 98.2 F Pulse Rate 79 Pulse Rate [ 85 Anterior Bilateral Throughout] Respiratory 20 Rate Respiratory 18 Rate [Anterior Bilateral Throughout] Blood Pressure 100/66 O2 Sat by Pulse 96 99 Oximetry 07/23/19 07/23/19 07/23/19 08:54 10:00 12:56 Temperature 97.8 F 98.2 F Pulse Rate 82 79 79 Pulse Rate [ Anterior Bilateral Throughout] Respiratory 18 18 Rate Respiratory Rate [Anterior Bilateral Throughout] Blood Pressure 109/77 124/86 O2 Sat by Pulse 95 94 Oximetry 11/22/19 11/22/19 14:13 16:38 Temperature 97.9 F Pulse Rate 69 Pulse Rate [ 86 Anterior Bilateral Throughout] Respiratory 18 Rate Respiratory 18 Rate [Anterior Bilateral Throughout] Blood Pressure 107/75 O2 Sat by Pulse 93 Oximetry - General Appearance General appearance: well-developed, well-nourished EENT: ATNC, PERRL Neck: JVD Respiratory: Present: Decreased Breath Sounds Cardiology: regular, S1S2 Gastrointestinal: normal, normoactive bowel sounds Neurologic: alert and oriented x3 Psychiatric: mood/affect appropriate - Lab 07/20/19 08:23 07/23/19 07:17 Most recent lab results Calcium 8.0 mg/dL (8.4-10.2) L 07/23/19 07:17 - Imaging Chest x-ray: image reviewed (cxr reviewed with interstitial edema. ) Medications & Allergies - Medications Allergies/Adverse Reactions: Allergies Penicillins Allergy (Verified 03/05/19 22:41) Itching strawberry Allergy (Verified 03/05/19 22:41) Hives Home Medications: Home Medications Medication Instructions Recorded Confirmed Last Taken Type Apixaban [Eliquis] 1 tab PO BID #60 tablet 03/14/19 07/19/19 07/17/19 Rx Aspirin [Aspirin BABY CHEW TAB] 81 mg PO QDAY #30 tab.chew 03/14/19 07/19/19 07/19/19 15:57 Rx AtorvaSTATin [Lipitor] 40 mg PO QHS #30 tablet 03/14/19 07/19/19 07/19/19 15:58 Rx guaiFENesin ER [Mucinex ER] 600 mg PO BID #60 tablet 03/14/19 07/19/19 Unknown Rx Colchicine 0.6 mg PO QDAY #10 capsule 03/21/19 07/19/19 07/17/19 Rx Nicotine [Habitrol] 14 mg TD QDAY #30 patch 03/21/19 07/19/19 07/19/19 15:53 Rx predniSONE [Deltasone] 20 mg PO QDAY #7 tablet 03/21/19 07/19/19 07/17/19 Rx Digoxin [Lanoxin] 0.25 mg PO DAILY@1700 #30 tablet 05/05/19 07/19/19 07/18/19 Rx Acetaminophen [Acetaminophen TAB] 2 tab PO Q4H PRN #15 tablet 06/25/19 07/19/1919 15:58 Rx Metoprolol [Lopressor TAB] 75 mg PO TID #90 tablet 06/25/19 07/19/19 07/19/19 15:53 Rx Oxycodone HCl/Acetaminophen 1 each PO Q6HR PRN #20 tablet 06/25/19 07/19/19 07/16/19 Rx [Percocet 10/325 mg] Sodium Bicarbonate 1,300 mg PO BID #90 tablet 06/25/19 07/19/19 07/19/19 15:53 Rx Torsemide [Demadex] 100 mg PO DAILY@0600 #30 tablet 06/25/19 07/19/19 Unknown Rx Active Medications: Generic Name Dose Route Start Last Admin Trade Name Freq PRN Reason Stop Dose Admin Acetaminophen 650 mg 07/19/19 01:38 07/21/19 22:08 Tylenol PO 650 mg Q4H PRN Administration Pain MILD(1-3)/Fever >100.5/TRUJILLO Albuterol/Ipratropium 1 ampul 07/19/19 20:00 07/23/19 14:12 Duoneb *Not For Prn Use* IH 1 ampul TIDRT SOUMYA Administration Apixaban 5 mg 07/21/19 22:00 07/23/19 09:41 Eliquis PO 5 mg BID SOUMYA Administration Protocol Aspirin 81 mg 07/22/19 10:00 07/23/19 09:41 Baby Aspirin PO 81 mg QDAY SOUMYA Administration Atorvastatin Calcium 40 mg 07/19/19 22:00 07/22/19 23:29 Lipitor PO 40 mg QHS SOUMYA Administration Colchicine 0.6 mg 07/21/19 17:00 07/23/19 09:41 Colchicine PO 0.6 mg QDAY SOUMYA Administration Dextrose 0 ml 07/19/19 03:00 07/19/19 23:01 D50w (25gm) Syringe IV 20 ml Q30MIN PRN Administration Hypoglycemia Protocol Digoxin 0.25 mg 07/22/19 17:00 07/22/19 17:08 Lanoxin PO 0.25 mg Q48H SOUMYA Administration Docusate Sodium 100 mg 07/19/19 10:00 07/23/19 09:41 Colace PO 100 mg BID SOUMYA Administration Furosemide 40 mg 07/22/19 06:00 07/23/19 09:40 Lasix IV Not Given 0600,1800 [facility] Guaifenesin 600 mg 07/21/19 22:00 07/23/19 09:41 Mucinex Er PO 600 mg BID SOUMYA Administration Magnesium Hydroxide 30 ml 07/19/19 01:38 07/22/19 10:02 Milk Of Magnesia PO 30 ml Q4H PRN Administration Constipation Metoprolol Tartrate 25 mg 07/22/19 20:00 07/23/19 09:41 Metoprolol PO 25 mg TID SOUMYA Administration Morphine Sulfate 2 mg 07/19/19 01:38 07/22/19 23:31 Morphine IV 2 mg Q4H PRN Administration Pain, Moderate (4-6) Morphine Sulfate 2 mg 07/19/19 01:38 Morphine IV Q5MIN PRN Chest Pain unrelieved by NTG Nicotine 14 mg 07/19/19 10:00 07/23/19 09:47 Habitrol TD Not Given QDAY [facility] Nitroglycerin 0.4 mg 07/19/19 01:38 Nitrostat SL Q5M PRN Chest Pain Ondansetron HCl 4 mg 07/19/19 01:38 Zofran IV Q8H PRN Nausea And Vomiting Oxycodone HCl 5 mg 07/21/19 17:20 Roxicodone PO Q6H PRN Pain , Severe (7-10) Oxycodone/Acetaminophen 1 tab 07/21/19 17:21 07/22/19 18:00 Percocet 5/325 PO 1 tab Q6H PRN Administration Pain , Severe (7-10) Prednisone 20 mg 07/19/19 10:00 07/23/19 09:42 Deltasone PO 20 mg QDAY SOUMYA Administration Sodium Chloride 10 ml 07/19/19 10:00 07/23/19 09:42 Sodium Chloride Flush Syringe 10 Ml IV 10 ml BID SOUMYA Administration Sodium Chloride 10 ml 07/19/19 01:38 07/22/19 05:32 Sodium Chloride Flush Syringe 10 Ml IV 10 ml PRN PRN Administration LINE FLUSH
[2019-07-23] MEDS: oxyCODONE /ACETAMINOPHEN 5-325MG TAB PO PRN (21:46)
[2019-07-23] MEDS: oxyCODONE 5 MG TAB PO PRN (21:47)
[2019-07-24] MEDS: FUROSEMIDE 40 MG/4 ML INJ IV SCH ×2 (05:41→07:15)
[2019-07-24] MEDS: oxyCODONE 5 MG TAB PO PRN (05:49)
[2019-07-24] MEDS: oxyCODONE /ACETAMINOPHEN 5-325MG TAB PO PRN (05:49)
[2019-07-24 07:06] LABS: Calcium 8.3 mg/dL (8.4-10.2)
[2019-07-24 09:13] VITALS: BP 143/92
[2019-07-24] MEDS: APIXABAN 5 MG TAB PO SCH (09:47)
[2019-07-24] MEDS: DOCUSATE SODIUM 100 MG CAP PO SCH (09:47)
[2019-07-24] MEDS: METOPROLOL TARTRATE 25 MG TAB PO SCH ×2 (09:47→14:03)
[2019-07-24] MEDS: guaiFENesin ER 600 MG TAB PO SCH (09:47)
[2019-07-24] MEDS: ASPIRIN 81 MG TAB CHEW PO SCH (09:47)
[2019-07-24] MEDS: NICOTINE 14 MG/24 HR PATCH TD SCH ×2 (09:47→09:50)
[2019-07-24] MEDS: predniSONE 20 MG TAB PO SCH (09:48)
[2019-07-24] MEDS: COLCHICINE 0.6 MG CAP PO SCH (09:48)
[2019-07-24] MEDS: IPRATROPIUM/ALBUTEROL SULFATE 3 ML AMPUL.NEB IH SCH ×2 (10:08→16:03)
--- NOTE | 2019-07-24 12:56 | Discharge Summary ---
Providers - Providers Date of Admission: 07/19/19 01:00 Date of discharge: 07/24/19 Attending physician: MARISELA BOATENG 07/19/19 Consult to Cardiac Rehabilitation [CONS] Routine Reason For Exam: Phase I 07/19/19 01:01 Consult to Physician [CONS] Urgent Comment: Consulting Provider: CHI GUTIERREZ Physician Instructions: Reason For Exam: recurrent right pleural effusion 07/19/19 12:00 Consult to Wound/ET Nurse [CONS] Routine Reason For Exam: wound eval 07/19/19 14:39 Consult to Physician [CONS] Routine Comment: Consulting Provider: LIZBETH QUIROZ Physician Instructions: Reason For Exam: PAD LE 07/19/19 22:01 Consult to Dietitian/Nutrition [CONS] Routine Physician Instructions: Reason For Exam: Reason for Consult: Diet education 07/21/19 16:29 Consult to Physician [CONS] Routine Comment: Consulting Provider: PERNELL LUGO Physician Instructions: Reason For Exam: ARF, pt known to your group Primary care physician: WEAVER DOBBY LOOM Hospitalization Condition: Fair Pertinent studies: CT scan cervical neck area shows degenerative joint disease C4-C5 and large right pleural effusion. Chest x-ray pleural effusion. Head CT small infarct left posterior parietal region. Echocardiogram ejection fraction 10-15%. Hospital course: Patient 54-year-old male chronically ill presents with recurrent large right pleural effusion. Patient was admitted for acute respiratory failure with this. Patient received thoracentesis and improved significantly over the next 3 d ays. Patient stable was scheduled to follow-up with pulmonology last time. Patient just was admitted for the same thing several weeks ago and did not have follow-up. Patient feels better this time would discharge and will need follow with pulmonology. There's an names and is aware. Disposition: DC-01 TO HOME OR SELFCARE - Discharge Diagnoses (1) Chronic atrial fibrillation Status: Acute Comment: Patient were chronic A. fib. Eliquis held so patient can get thoracentesis stable to restart upon discharge now. (2) Full code status Status: Acute (3) Recurrent right pleural effusion Status: Acute Comment: Recurrent right pleural effusion. Again scheduled to follow-up and see pulmonology as outpatient. Responded to thoracentesis very well. (4) Syncope Status: Resolved (5) Acute and chronic respiratory failure Status: Acute Qualifiers: Respiratory failure complication: hypoxia Qualified Code(s): J96.21 - Acute and chronic respiratory failure with hypoxia Comment: Acute on chronic respiratory failure secondary to underlying etiology. (6) Acute kidney injury superimposed on chronic kidney disease Status: Acute Comment: Acute kidney injury secondary to prerenal azotemia has resolved. Patient creatinine is at baseline 1.5. (7) HTN (hypertension) Status: Acute Qualifiers: Hypertension type: essential hypertension Qualified Code(s): I10 - Essential (primary) hypertension Comment: Fair control with current medical management. (8) Pneumonia Status: Acute (9) Congestive heart failure Status: Acute Comment: Fairly well compensated at this particular time right- sided pleural effusion from appear to be pulmonary related. Patient has ejection fraction of 10-15%. Some refractory edema otherwise hemodynamically stable and well compensated. Core Measure Documentation - Palliative Care Palliative Care/ Comfort Measures: Not Applicable - Core Measures Any of the following diagnoses?: none Exam - Constitutional Vitals: Temp Pulse Resp BP Pulse Ox 98.3 F 92 H 18 143/92 90 07/24/19 09:11 07/24/19 10:00 07/24/19 09:11 07/24/19 09:11 07/24/19 09:11 General appearance: Present: no acute distress, well-nourished - EENT Eyes: Present: PERRL ENT: hearing intact, clear oral mucosa - Neck Neck: Present: supple, normal ROM - Respiratory Respiratory effort: normal Respiratory: right: CTA, diminished (large right sided pleural effusion.), rhonchi - Cardiovascular Heart Sounds: Present: S1 & S2. Absent: rub, click - Extremities Extremities: pulses symmetrical, No edema Peripheral Pulses: within normal limits - Abdominal General gastrointestinal: Present: soft, non-tender, non-distended, normal bowel sounds Male genitourinary: Present: normal - Integumentary Integumentary: Present: clear, warm, dry - Musculoskeletal Musculoskeletal: strength equal bilaterally, generalized weakness - Psychiatric Psychiatric: appropriate mood/affect, intact judgment & insight - Neurologic Neurologic: CNII-XII intact, moves all extremities Plan Activity: fall precautions Weight Bearing Status: Full Weight Bearing Diet: low salt, diabetic Follow up with: PRIMARY CARE, [Primary Care Provider] - 3-5 Days Prescriptions: Colchicine 0.6 mg PO QDAY #10 capsule predniSONE [Deltasone] 20 mg PO QDAY #7 tablet Torsemide [Demadex] 100 mg PO DAILY@0600 #30 tablet Apixaban [Eliquis] 1 tab PO BID #60 tablet Nicotine [Habitrol] 14 mg TD QDAY #30 patch Digoxin [Lanoxin] 0.25 mg PO DAILY@1700 #30 tablet AtorvaSTATin [Lipitor] 40 mg PO QHS #30 tablet Metoprolol [Lopressor TAB] 75 mg PO TID #90 tablet guaiFENesin ER [Mucinex ER] 600 mg PO BID #60 tablet Oxycodone HCl/Acetaminophen [Percocet 10/325 mg] 1 each PO Q6HR PRN #20 tablet PRN Reason: Pain , Severe (7-10) Sodium Bicarbonate 1,300 mg PO BID #90 tablet
--- NOTE | 2019-07-24 13:59 | Progress Note ---
Assessment and Plan Patient alert, awake. Patient is on room air. No complaint of chest pain or shortness of breath and cough.O2 saturation 90% on room air. Patient has right pleural effusion. Patient undergone thoracentesis. Pleural fluid is transudate. No malignant cells. Patient going home. Can come to my office as out patient for pulmonary fallow up.. - Patient Problems (1) CHF exacerbation Current Visit: Yes Status: Acute Plan to address problem: Management as per cardiology. (2) Chronic atrial fibrillation Current Visit: Yes Status: Acute Plan to address problem: Patient is on Apixaban. Management as per cardiology. (3) History of CVA with residual deficit Current Visit: Yes Status: Acute Plan to address problem: Management as per neurology and primary care. (4) Recurrent right pleural effusion Current Visit: Yes Status: Acute Plan to address problem: Patient undergone right thoracentesis. Pleural fluid is transudate. No malignant cells. (5) Acute and chronic respiratory failure Current Visit: No Status: Acute Qualifiers: Respiratory failure complication: hypoxia Qualified Code(s): J96.21 - Acute and chronic respiratory failure with hypoxia (6) COPD (chronic obstructive pulmonary disease) Current Visit: No Status: Acute Qualifiers: Chronic bronchitis type: mixed simple and mucopurulent Plan to address problem: Improved. Patient presently on room air. Albuterol/atrovent aerosol treatments q 6 hours. Continue prednisone. Patient is on Apixaban. PFTs as out patient. (7) Diabetes Current Visit: No Status: Acute Plan to address problem: Management as per primary care. (8) HTN (hypertension) Current Visit: No Status: Acute Qualifiers: Hypertension type: essential hypertension Qualified Code(s): I10 - Essential (primary) hypertension Plan to address problem: Management as per primary care. Subjective Date of service: 07/24/19 Principal diagnosis: Dyspnea; Large right pleural effusion; Tobacco use disorder; COPD; KAREN Interval history: Patient alert, awake. Patient is on room air. No complaint of chest pain or shortness of breath and cough.O2 saturation 90% on room air. Patient has right pleural effusion. Patient undergone thoracentesis. Pleural fluid is transudate. No malignant cells. Patient going home. Can come to my office as out patient for pulmonary fallow up. Objective Vital Signs - 12hr 07/24/19 07/24/19 07/24/19 04:13 04:14 05:49 Temperature 97.6 F Pulse Rate 83 Pulse Rate [ Apical] Respiratory 18 18 Rate Blood Pressure 116/80 O2 Sat by Pulse 96 Oximetry 07/24/19 07/24/19 07/24/19 06:39 09:11 10:00 Temperature 98.3 F Pulse Rate 86 61 92 H Pulse Rate [ 92 H Apical] Respiratory 18 Rate Blood Pressure 113/77 143/92 O2 Sat by Pulse 96 90 Oximetry Constitutional: no acute distress, alert Eyes: non-icteric ENT: oropharynx moist Neck: supple, no lymphadenopathy, no JVD Effort: normal Ascultation: Right: rhonchi, Bilateral: diminished breath sounds, other (poor AE right lung ) Percussion: Right: dull (base) Cardiovascular: irregular rhythm, murmur noted, other (S1,S2 chest wall cardiac device) Gastrointestinal: normoactive bowel sounds, soft, non-tender, other (mild distension, non tender) Integumentary: normal Extremities: no cyanosis, cool (left foot ulcer) Neurologic: normal mental status, pupils equal and round, CN II-XII normal Psychiatric: mood appropriate, affect normal, depressed CBC and BMP: 07/20/19 08:23 07/24/19 05:20 ABG, PT/INR, D-dimer: PT/INR, D-dimer PT 20.0 Sec. (12.2-14.9) H 07/20/19 08:23 INR 1.73 (0.87-1.13) H 07/20/19 08:23 Abnormal lab findings: Abnormal Labs 07/18/19 07/18/19 07/18/19 23:33 23:33 23:33 Hgb 11.5 L Hct 34.9 L RDW 19.4 H Lymph % (Auto) [place] % (Auto) 14.8 H Lymph # 0.8 L Seg Neutrophils % PT 16.1 H INR 1.31 H APTT Sodium 135 L Potassium Chloride Carbon Dioxide 17 L BUN 22 H Creatinine Glucose POC Glucose Calcium NT-Pro-B Natriuret Pep Digoxin 07/19/19 07/19/19 07/19/19 02:09 02:09 10:08 Hgb Hct RDW 19.9 H Lymph % (Auto) [place] % (Auto) 13.8 H Lymph # Seg Neutrophils % PT INR APTT Sodium Potassium Chloride Carbon Dioxide 18 L BUN 23 H Creatinine 1.6 H Glucose 101 H POC Glucose Calcium NT-Pro-B Natriuret Pep Digoxin 0.3 L 07/19/19 07/19/19 07/19/19 16:33 22:30 22:43 Hgb Hct RDW Lymph % (Auto) [place] % (Auto) Lymph # Seg Neutrophils % PT INR APTT Sodium Potassium Chloride Carbon Dioxide BUN Creatinine Glucose 46 L POC Glucose 50 L 45 L Calcium NT-Pro-B Natriuret Pep Digoxin 07/20/19 07/20/19 07/20/19 00:29 07:38 08:23 Hgb Hct RDW 19.3 H Lymph % (Auto) 12.2 L [place] % (Auto) 9.9 H Lymph # 0.9 L Seg Neutrophils % 77.6 H PT INR APTT Sodium Potassium Chloride Carbon Dioxide BUN Creatinine Glucose POC Glucose 66 L 155 H Calcium NT-Pro-B Natriuret Pep Digoxin 07/20/19 07/20/19 07/20/19 08:23 08:23 12:10 Hgb Hct RDW Lymph % (Auto) [place] % (Auto) Lymph # Seg Neutrophils % PT 20.0 H INR 1.73 H APTT 38.3 H Sodium 136 L Potassium Chloride 97.4 L Carbon Dioxide 18 L BUN 39 H Creatinine 2.4 H Glucose 151 H POC Glucose 148 H Calcium NT-Pro-B Natriuret Pep Digoxin 07/20/19 07/20/19 07/21/19 16:29 20:31 09:07 Hgb Hct RDW Lymph % (Auto) [place] % (Auto) Lymph # Seg Neutrophils % PT INR APTT Sodium Potassium Chloride Carbon Dioxide BUN Creatinine Glucose POC Glucose 137 H 167 H 128 H Calcium NT-Pro-B Natriuret Pep Digoxin 07/21/19 07/21/19 07/21/19 12:16 16:59 17:35 Hgb Hct RDW Lymph % (Auto) [place] % (Auto) Lymph # Seg Neutrophils % PT INR APTT Sodium 132 L Potassium 5.1 H Chloride 95.9 L Carbon Dioxide BUN 49 H Creatinine 2.6 H Glucose 173 H POC Glucose 169 H 195 H Calcium 7.9 L NT-Pro-B Natriuret Pep Digoxin 07/21/19 07/21/19 07/22/19 17:35 21:27 05:56 Hgb Hct RDW Lymph % (Auto) [place] % (Auto) Lymph # Seg Neutrophils % PT INR APTT Sodium 134 L Potassium Chloride 97.8 L Carbon Dioxide BUN 51 H Creatinine 2.4 H Glucose 119 H POC Glucose 182 H Calcium 8.0 L NT-Pro-B Natriuret Pep 87423 H Digoxin 07/22/19 07/22/19 07/22/19 08:59 12:55 16:10 Hgb Hct RDW Lymph % (Auto) [place] % (Auto) Lymph # Seg Neutrophils % PT INR APTT Sodium Potassium Chloride Carbon Dioxide BUN Creatinine Glucose POC Glucose 122 H 173 H 169 H Calcium NT-Pro-B Natriuret Pep Digoxin 07/22/19 07/22/19 07/23/19 20:38 22:37 07:17 Hgb Hct RDW Lymph % (Auto) [place] % (Auto) Lymph # Seg Neutrophils % PT INR APTT Sodium 136 L Potassium Chloride 95.2 L Carbon Dioxide BUN 48 H Creatinine 2.1 H Glucose POC Glucose 185 H 196 H Calcium 8.0 L NT-Pro-B Natriuret Pep 02042 H Digoxin 07/23/19 07/23/19 07/23/19 13:04 17:19 21:44 Hgb Hct RDW Lymph % (Auto) [place] % (Auto) Lymph # Seg Neutrophils % PT INR APTT Sodium Potassium Chloride Carbon Dioxide BUN Creatinine Glucose POC Glucose 127 H 145 H 159 H Calcium NT-Pro-B Natriuret Pep Digoxin 07/24/19 07/24/19 07/24/19 05:20 08:52 11:43 Hgb Hct RDW Lymph % (Auto) [place] % (Auto) Lymph # Seg Neutrophils % PT INR APTT Sodium 134 L Potassium Chloride 95.8 L Carbon Dioxide BUN 47 H Creatinine 1.6 H Glucose 133 H POC Glucose 108 H 132 H Calcium 8.3 L NT-Pro-B Natriuret Pep Digoxin Chest x-ray: report reviewed (Cardiomegaly and right lower lobe infiltrate and right pleural effusion.), image reviewed Allied health notes reviewed: nursing
[2019-07-26 15:10] LABS: Total Protein,Body Fluid 3.3 (15.0-45.0)
== END 2019-07-24 16:45 | disposition home or self-care (01) | DRG 189 ==
LOC: ED 23:07 → 4A 07-19 01:00
PROVIDERS: ADMIT Internal Medicine Geriatric Medicine; ATTEND Internal Medicine
PROC: 5A09357 Assistance with Respiratory Ventilation, Less than 24 Consecutive Hours, Continuous Positive Airway Pressure (ICD-10-PCS; principal; 2019-07-20)
PROC: 0W993ZZ Drainage of Right Pleural Cavity, Percutaneous Approach (ICD-10-PCS; 2019-07-20)
PROC: 5A09357 Assistance with Respiratory Ventilation, Less than 24 Consecutive Hours, Continuous Positive Airway Pressure (ICD-10-PCS; 2019-07-21)
DX: J96.21 Acute and chronic respiratory failure with hypoxia (principal); I50.23 Acute on chronic systolic (congestive) heart failure; N17.0 Acute kidney failure with tubular necrosis; I48.20 Chronic atrial fibrillation, unspecified; I13.0 Hypertensive heart and chronic kidney disease with heart failure and stage 1 through stage 4 chronic kidney disease, or unspecified chronic kidney disease; L97.329 Non-pressure chronic ulcer of left ankle with unspecified severity; F17.210 Nicotine dependence, cigarettes, uncomplicated; E87.2 Acidosis; E11.622 Type 2 diabetes mellitus with other skin ulcer; E11.22 Type 2 diabetes mellitus with diabetic chronic kidney disease; N18.3 Chronic kidney disease, stage 3 (moderate); I42.9 Cardiomyopathy, unspecified; E87.1 Hypo-osmolality and hyponatremia; J91.8 Pleural effusion in other conditions classified elsewhere; D64.9 Anemia, unspecified; E11.40 Type 2 diabetes mellitus with diabetic neuropathy, unspecified; I69.354 Hemiplegia and hemiparesis following cerebral infarction affecting left non-dominant side; Z79.01 Long term (current) use of anticoagulants; Z95.810 Presence of automatic (implantable) cardiac defibrillator; Z79.82 Long term (current) use of aspirin; Z79.899 Other long term (current) drug therapy; Z80.9 Family history of malignant neoplasm, unspecified; Z82.49 Family history of ischemic heart disease and other diseases of the circulatory system; Z88.0 Allergy status to penicillin; Z91.018 Allergy to other foods; Z91.19 Patient's noncompliance with other medical treatment and regimen; Z79.84 Long term (current) use of oral hypoglycemic drugs
CPT/HCPCS: 32555; 36415; 70450; 71045; 71046; 72125; 80048; 80162; 82947; 82962; 83605; 83880; 84160; 84484; 85025; 85610; 85730; 87116; 88112; 88305; 88312; 93005; 93010; 93306; 93922; 93925; 94640; 94660; 94760; G0378; A9270-GY; J1170; J1644; J1940; J2270; J2405; J7512

== ENCOUNTER 2019-08-01 17:53 | Inpatient (IN) | payer MEDICAID ==
--- NOTE | 2019-08-01 18:39 | Emergency Department Report ---
ED Shortness of Breath HPI - General Stated Complaint: CHEST PAIN Time Seen by Provider: 08/01/19 18:30 - History of Present Illness Initial Comments: Patient is 54 years old male with history of congestive heart failure with ejection fraction of 10%, defibrillator. Patient brought to the emergency room via EMS for evaluation or shortness of breath for the last 3 days associated with chest pain pressure in nature with no radiation with significant bilateral lower extremity swelling. Patient was recently discharged from the hospital after he had a thoracocentesis secondary to large right pleural effusion. Patient stated that symptoms is recurring again. Patient denied any fever or chills. MD Complaint: shortness of breath, cough, chest pain -: days(s) (3) - Related Data Previous Rx's Medication Instructions Recorded Last Taken Type Aspirin [Aspirin BABY CHEW TAB] 81 mg PO QDAY #30 tab.chew 03/14/19 07/19/19 15:57 Rx Acetaminophen [Acetaminophen TAB] 2 tab PO Q4H PRN #15 tablet 06/25/19 07/19/19 15:58 Rx Apixaban [Eliquis] 1 tab PO BID #60 tablet 07/24/19 Unknown Rx AtorvaSTATin [Lipitor] 40 mg PO QHS #30 tablet 07/24/19 Unknown Rx Colchicine 0.6 mg PO QDAY #10 capsule 07/24/19 Unknown Rx Digoxin [Lanoxin] 0.25 mg PO DAILY@1700 #30 tablet 07/24/19 Unknown Rx Docusate Sodium [Colace CAP] 100 mg PO BID capsule 07/24/19 Unknown Rx Metoprolol [Lopressor TAB] 75 mg PO TID #90 tablet 07/24/19 Unknown Rx Nicotine [Habitrol] 14 mg TD QDAY #30 patch 07/24/19 Unknown Rx Oxycodone HCl/Acetaminophen 1 each PO Q6HR PRN #20 tablet 07/24/19 Unknown Rx [Percocet 10/325 mg] Sodium Bicarbonate 1,300 mg PO BID #90 tablet 07/24/19 Unknown Rx Torsemide [Demadex] 100 mg PO DAILY@0600 #30 tablet 07/24/19 Unknown Rx guaiFENesin ER [Mucinex ER] 600 mg PO BID #60 tablet 07/24/19 Unknown Rx oxyCODONE /ACETAMINOPHEN [Percocet 1 tab PO Q6H PRN tablet 07/24/19 Unknown Rx 5/325 mg] predniSONE [Deltasone] 20 mg PO QDAY #7 tablet 07/24/19 Unknown Rx Allergies Allergy/AdvReac Type Severity Reaction Status Date / Time Penicillins Allergy Itching Verified 03/05/19 22:41 strawberry Allergy Hives Verified 03/05/19 22:41 ED Review of Systems ROS: Stated complaint: CHEST PAIN Other details as noted in HPI Comment: All other systems reviewed and negative Constitutional: denies: chills, fever Respiratory: cough, orthopnea, shortness of breath, SOB with exertion, SOB at rest. denies: wheezing Cardiovascular: chest pain, dyspnea on exertion, orthopnea. denies: palpitations Gastrointestinal: denies: abdominal pain, nausea, vomiting Neurological: denies: headache, weakness ED Past Medical Hx - Past Medical History Hx Hypertension: Yes Hx CVA: Yes (left sided weakness) Hx Heart Attack/AMI: Yes Hx Congestive Heart Failure: Yes Hx Diabetes: Yes Hx Deep Vein Thrombosis: No Hx Pulmonary Embolism: No Hx Liver Disease: No Hx Renal Disease: Yes (Stage I) Hx Arthritis: No Hx Seizures: No Hx Asthma: Yes Hx COPD: Yes Hx Tuberculosis: No Hx Dementia: No Additional medical history: Neuropathy; Afib on Eliquis, sleep apnea - Surgical History Hx Coronary Stent: No Hx Pacemaker: No Hx Internal Defibrillator: Yes Additional Surgical History: left leg - Social History Smoking Status: Current Every Day Smoker - Medications Home Medications: Home Medications Medication Instructions Recorded Confirmed Last Taken Type Aspirin [Aspirin BABY CHEW TAB] 81 mg PO QDAY #30 tab.chew 03/14/19 07/19/19 07/19/19 15:57 Rx Acetaminophen [Acetaminophen TAB] 2 tab PO Q4H PRN #15 tablet 06/25/19 07/19/19 07/19/19 15:58 Rx Apixaban [Eliquis] 1 tab PO BID #60 tablet 07/24/19 Unknown Rx AtorvaSTATin [Lipitor] 40 mg PO QHS #30 tablet 07/24/19 Unknown Rx Colchicine 0.6 mg PO QDAY #10 capsule 07/24/19 Unknown Rx Digoxin [Lanoxin] 0.25 mg PO DAILY@1700 #30 tablet 07/24/19 Unknown Rx Docusate Sodium [Colace CAP] 100 mg PO BID capsule 07/24/19 Unknown Rx Metoprolol [Lopressor TAB] 75 mg PO TID #90 tablet 07/24/19 Unknown Rx Nicotine [Habitrol] 14 mg TD QDAY #30 patch 07/24/19 Unknown Rx Oxycodone HCl/Acetaminophen 1 each PO Q6HR PRN #20 tablet 07/24/19 Unknown Rx [Percocet 10/325 mg] Sodium Bicarbonate 1,300 mg PO BID #90 tablet 07/24/19 Unknown Rx Torsemide [Demadex] 100 mg PO DAILY@0600 #30 tablet 07/24/19 Unknown Rx guaiFENesin ER [Mucinex ER] 600 mg PO BID #60 tablet 07/24/19 Unknown Rx oxyCODONE /ACETAMINOPHEN [Percocet 1 tab PO Q6H PRN tablet 07/24/19 Unknown Rx 5/325 mg] predniSONE [Deltasone] 20 mg PO QDAY #7 tablet 07/24/19 Unknown Rx ED Physical Exam - General General appearance: alert, in distress (moderate respiratory distress) - Eye Eye exam: Present: normal appearance - ENT ENT exam: Present: normal exam, normal orophraynx, mucous membranes moist - Neck Neck exam: Present: normal inspection, full ROM. Absent: tenderness, meningismus, lymphadenopathy, thyromegaly - Respiratory Respiratory exam: Present: respiratory distress, rales. Absent: wheezes, rhonchi, stridor, accessory muscle use, decreased breath sounds, prolonged expiratory - Cardiovascular Cardiovascular Exam: Present: normal rhythm, irregular rhythm, normal heart sounds - GI/Abdominal GI/Abdominal exam: Present: soft, normal bowel sounds. Absent: distended, tenderness, guarding, rebound, rigid, mass, bruit, pulsatile mass, hernia - Extremities Exam Extremities exam: Present: pedal edema. Absent: calf tenderness - Back Exam Back exam: Present: normal inspection, full ROM. Absent: CVA tenderness (R), CVA tenderness (L), muscle spasm, paraspinal tenderness, vertebral tenderness - Neurological Exam Neurological exam: Present: alert, oriented X3 - Skin Skin exam: Present: warm, other (chronic leg wound with no erythema or greenish discharge.) ED Course Vital Signs 08/01/19 08/01/19 08/01/19 18:48 19:18 19:21 Temperature 98.3 F Pulse Rate 110 H 101 H 101 H Respiratory 28 H 21 39 H Rate Blood Pressure 129/90 O2 Sat by Pulse 96 96 95 Oximetry ED Medical Decision Making - Lab Data Result diagrams: 08/01/19 18:49 08/01/19 18:49 - EKG Data -: EKG Interpreted by Me Rate: tachycardia - EKG Data Interpretation: no acute changes 08/01/19 18:50 Atrial fibrillation - Radiology Data Radiology results: report reviewed - Medical Decision Making Patient is 54 years old male with history of congestive heart failure with ej ection fraction of 10%, defibrillator. Patient brought to the emergency room via EMS for evaluation or shortness of breath for the last 3 days associated with chest pain pressure in nature with no radiation with significant bilateral lower extremity swelling. Patient was recently discharged from the hospital after he had a thoracocentesis secondary to large right pleural effusion. Patient stated that symptoms is recurring again. Patient denied any fever or chills. Chest x-ray showed a large right pleural effusion. Patient received Lasix and morphine. I discussed the patient with Dr. Carrillo, he agreed to admit the patient to medical service. Critical Care Time: Yes Critical care time in (mins) excluding proc time.: 30 Critical care attestation.: If time is entered above; I have spent that time in minutes in the direct care of this critically ill patient, excluding procedure time. ED Disposition Clinical Impression: Chest pain, Chronic atrial fibrillation, CHF exacerbation Disposition: OP ADMIT IP TO THIS HOSP Is pt being admited?: Yes Condition: Stable Instructions: Chest Pain (ED) Referrals: PRIMARY CARE, [Primary Care Provider] - 3-5 Days
[2019-08-01 19:12] LABS: Basophils # (Auto) 0.1 K/mm3 (0.0-0.1); Basophils % (Auto) 0.8 % (0.0-1.8); Eosinophils % (Auto) 0.5 % (0.0-4.3); Hematocrit 36.2 % (35.5-45.6); Hemoglobin 11.6 gm/dl (11.8-15.2); Mean Corpuscular HGB Conc 32 % (32-34); Mean Corpuscular Volume 90 fl (84-94); Monocytes # (Auto) 0.9 K/mm3 (0.0-0.8); Monocytes % (Auto) 9.5 % (0.0-7.3); Platelet Count 197 K/mm3 (140-440); Red Blood Count 4.02 M/mm3 (3.65-5.03); Red Cell Distribution Width 19.3 % (13.2-15.2)
[2019-08-01 19:21] LABS: INR 1.08 (0.87-1.13)
[2019-08-01 19:36] LABS: BUN/Creatinine Ratio 15; Blood Urea Nitrogen 19 mg/dL (9-20); Calcium 8.8 mg/dL (8.4-10.2); Hemolysis Index 11
[2019-08-01 19:39] LABS: Albumin 3.4 g/dL (3.9-5)
[2019-08-01 19:40] LABS: Partial Thromboplastin Time 30.8 Sec. (24.2-36.6)
[2019-08-01] MEDS ORDERED: MORPHINE 4 MG/1 ML INJ IV ONE (19:42)
[2019-08-01] MEDS ORDERED: ONDANSETRON 4 MG/2 ML INJ IV ONE (19:42)
[2019-08-01 19:55] LABS: Chol/HDL Ratio 3.19 %; HDL Cholesterol 41 mg/dL (40-59); LDL Cholesterol,Direct 88 mg/dL (50-130)
--- NOTE | 2019-08-01 19:55 | XRay Report ---
CHEST 1 VIEW INDICATION: Chest Pain. COMPARISON: 07/23/2019 FINDINGS: Support devices: None. Heart: Stable cardiomegaly. Lungs/Pleura: Worsened right basilar consolidation/effusion with clear left lung. Additional findings: None. IMPRESSION: 1. Worsened exam. Signer Name: Steven Mendenhall MD Signed: 08/01/2019 7:51 PM Workstation Name: [id number]
[2019-08-01] MEDS ORDERED: FUROSEMIDE 40 MG/4 ML INJ IV ONE (20:16)
[2019-08-02] MEDS: HYDROmorphone 1 MG/1 ML INJ IV PRN ×2 (02:00→05:52)
--- NOTE | 2019-08-02 03:58 | Event Note ---
Date: 08/01/19 Please see history and physical in the reports CHF exacerbation Right pleural effusion Left ankle ulcer Hypertension Type 2 diabetes
[2019-08-02] MEDS ORDERED: METOCLOPRAMIDE 10 MG/2 ML INJ IV PRN (04:12)
[2019-08-02] MEDS ORDERED: ONDANSETRON 4 MG/2 ML INJ IV PRN ×2 (04:12→04:18)
[2019-08-02] MEDS ORDERED: ACETAMINOPHEN 325 MG TAB PO PRN ×2 (04:12→04:18)
--- NOTE | 2019-08-02 04:36 | History and Physical Report ---
CHIEF COMPLAINT: 1. Increasing shortness of breath for the last 3 days. 2. Also chest pain for the last 3 days. HISTORY OF PRESENT ILLNESS: A 54-year-old male, -[place], recently discharged from this facility on 07/24/2019 for right pleural effusion and status post thoracentesis, CHF exacerbation, comes in for increasing shortness of breath for the last 3 days associated with chest pain. The patient has ejection fraction of 10% and is on defibrillator. Chest pain is retrosternal, no radiation, dull in character, intermittent in nature. He has been having chest pain off and on in the past also. Workup for chest pain has been done. No diaphoresis, no palpitations. No fever or chills. No recent travel. The patient also has left ankle ulcer and swelling of both the legs. PAST MEDICAL HISTORY: Significant for atrial fibrillation, hyperlipidemia, hypertension, nicotine dependence, chronic pain, CHF and type 2 diabetes. PAST SURGICAL HISTORY: Significant for internal defibrillator and left leg surgery. SOCIAL HISTORY: Smokes about a pack a day. FAMILY HISTORY: Significant for hypertension. REVIEW OF SYSTEMS: Significant for increasing shortness of breath and orthopnea present. Also chest pain off and on for 3 days. No fever or chills. A 14-point review of systems was done. PHYSICAL EXAMINATION: GENERAL: Middle-aged male, looks older than his age. VITAL SIGNS: Blood pressure is 121/78, temperature 97.5 Fahrenheit, pulse is 80-98, respiratory rate is 18-34, sats are 95%. HEENT: Unremarkable pupils. NECK: Supple, no lymphadenopathy, no thyromegaly, jugular venous distention present. LUNGS: Bilateral rales present. Decreased air entry on the right side. CARDIOVASCULAR: S1, S2 heard. No gallop, no murmur, no rub. Apical impulse in left fifth intercostal space and midclavicular line. ABDOMEN: Soft and benign. No hepatosplenomegaly. No guarding, no rigidity. EXTREMITIES: 3+ pedal edema present, also present on the left ankle. CENTRAL NERVOUS SYSTEM: Alert and oriented x 4, nonfocal exam. SKIN: Normal except for the ulcer on the left ankle. DIAGNOSTIC DATA: Chest x-ray shows right pleural effusion worsened since last admission, also right basilar consolidation. EKG reviewed. EKG is sinus tachycardia. Atrial fibrillation present. LABORATORY DATA: Significant for white count of 9500, H and H is 11.6 and 36.2, platelet count is 197,000. Sodium is 142, potassium is 3.8, chloride is 103, BUN and creatinine is 19 and 1.3. Alkaline phosphatase is 212. Troponin is elevated at 0.044, 0.049 and 0.054. BNP is 10,277. Albumin is 3.4. Chest x-ray shows right pleural effusion. ASSESSMENT AND PLAN: 1. Congestive heart failure exacerbation. The patient has a low EF, recurrent admissions. The patient was recently discharged on 07/24/2019 after optimizing medications. IV Lasix for now. No echocardiogram. 2. Right pleural effusion. The patient to be positive for thoracentesis. CT-guided thoracentesis by Radiology tomorrow. 3. Left ankle ulcer. Wound care consult and IV antibiotics in the form of Unasyn started. 4. Chest pain. Troponins were elevated. We will defer to Cardiology regarding stress test or management. 5. Hypertension. Continue antihypertensives. Blood pressure under control. 6. Type 2 diabetes. Accu-Cheks a.c. and at bedtime and check hemoglobin A1c and coverage for now. 7. Chronic atrial fibrillation. Continue Eliquis. 8. Deep venous thrombosis prophylaxis. The patient is on Eliquis. 9. Gastrointestinal prophylaxis. JOB# [id number] TAE/BIMAL
[2019-08-02] MEDS: FUROSEMIDE 40 MG/4 ML INJ IV SCH ×2 (05:42→18:08)
[2019-08-02] MEDS: POTASSIUM CHLORIDE ER 20 MEQ TAB PO SCH ×2 (05:42→18:09)
[2019-08-02] MEDS ORDERED: AMPICILLIN/SULBACTA 3GM/100ML 3 GM/100 ML BAG IV SCH (06:00)
[2019-08-02] MEDS: INSULIN LISPRO 100 UNIT/ML SUB-Q SCH ×4 (08:56→22:06)
[2019-08-02] MEDS: METOPROLOL TARTRATE 25 MG TAB PO SCH ×3 (09:58→20:26)
[2019-08-02] MEDS: APIXABAN 5 MG TAB PO SCH ×2 (09:58→22:07)
[2019-08-02] MEDS: FAMOTIDINE 20 MG TAB PO SCH ×2 (09:58→22:06)
[2019-08-02] MEDS: ASPIRIN 81 MG TAB CHEW PO SCH (09:58)
[2019-08-02] MEDS: NICOTINE 14 MG/24 HR PATCH TD SCH (09:59)
[2019-08-02] MEDS: SODIUM BICARBONATE 650 MG TAB PO SCH ×2 (09:59→22:06)
[2019-08-02] MEDS: predniSONE 20 MG TAB PO SCH (09:59)
[2019-08-02] MEDS: DOCUSATE SODIUM 100 MG CAP PO SCH ×2 (09:59→22:07)
[2019-08-02] MEDS: METOPROLOL TARTRATE 50 MG TAB PO SCH ×3 (10:00→20:25)
[2019-08-02] MEDS: oxyCODONE /ACETAMINOPHEN 5-325MG TAB PO PRN ×2 (10:02→22:16)
--- NOTE | 2019-08-02 13:49 | Procedure Note ---
Date of procedure: 08/02/19 Pre-op diagnosis: right pleural effusion, chf Post-op diagnosis: same Procedure: US right thoracentesis Findings: large right pleural effusion Anesthesia: local Surgeon: AYAKA MENSAH Estimated blood loss: none Specimen disposition: discarded Condition: stable Disposition: floor
--- NOTE | 2019-08-02 13:55 | Ultrasound Report ---
ULTRASOUND-GUIDED THORACENTESIS HISTORY: RIGHT PLEURAL EFFUSION. COMPARISON: None PROCEDURE: The risks (including but not limited to bleeding, infection, and pneumothorax) and benefi ts were explained to the patient and informed consent was obtained. A time out procedure was perform ed. Ultrasound was used to evaluate the right pleural effusion and locate the optimal site for needle ent ry. Once the skin was marked, the procedure site was prepped and draped in the usual sterile fashion and lidocaine was used for local anesthesia. A skin irvin was made and a 6-Slovenian thoracentesis cath eter was placed. The patient was monitored closely throughout the procedure, and a total of 2500 mL of yellow cloudy fluid was aspirated. No labs were ordered by the ordering physician. The patient tolerated the procedure well with no complications. A post-procedure chest x-ray was imm ediately ordered. IMPRESSION: Successful ultrasound-guided right thoracentesis as described. Signer Name: Tenzin Vallejo Jr, MD Signed: 08/02/2019 1:50 PM Workstation Name: [id number]
--- NOTE | 2019-08-02 14:52 | Consultation ---
History of Present Illness Consult date: 08/02/19 Consult reason: congestive heart failure History of present illness: This is a 54-year old male with a history of right pleural effusion requiring frequent thoracentesis. Patient is readmitted with recurrence of a large right pleural effusion. Of note, patient was just discharged from this hospital 48-72 hours ago with recurrent right pleural effusion. Patient has a cardiac history of chronic atrial fibrillation and nonischemic cardiomyopathy with ejection fraction 15-20%. He also has an indwelling cardiac defibrillator. Patient is on chronic oral anticoagulation therapy with Eliquis. EKG shows atrial fibrillation with a ventricular rate in the 100s with low voltage. Medications and Allergies Allergies Allergy/AdvReac Type Severity Reaction Status Date / Time Penicillins Allergy Itching Verified 03/05/19 22:41 strawberry Allergy Hives Verified 03/05/19 22:41 Home Medications Medication Instructions Recorded Confirmed Last Taken Type Aspirin [Aspirin BABY CHEW TAB] 81 mg PO QDAY #30 tab.chew 03/14/19 08/02/19 07/19/19 15:57 Rx Acetaminophen [Acetaminophen TAB] 2 tab PO Q4H PRN #15 tablet 06/25/19 08/02/19 07/19/19 15:58 Rx Apixaban [Eliquis] 1 tab PO BID #60 tablet 07/24/19 08/02/19 Unknown Rx AtorvaSTATin [Lipitor] 40 mg PO QHS #30 tablet 07/24/19 08/02/19 Unknown Rx Colchicine 0.6 mg PO QDAY #10 capsule 07/24/19 08/02/19 Unknown Rx Digoxin [Lanoxin] 0.25 mg PO DAILY@1700 #30 tablet 07/24/19 08/02/19 Unknown Rx Docusate Sodium [Colace CAP] 100 mg PO BID capsule 07/24/19 08/02/19 Unknown Rx Metoprolol [Lopressor TAB] 75 mg PO TID #90 tablet 07/24/19 08/02/19 Unknown Rx Nicotine [Habitrol] 14 mg TD QDAY #30 patch 07/24/19 08/02/19 Unknown Rx Oxycodone HCl/Acetaminophen 1 each PO Q6HR PRN #20 tablet 07/24/19 08/02/19 Unknown Rx [Percocet 10/325 mg] Sodium Bicarbonate 1,300 mg PO BID #90 tablet 07/24/19 08/02/19 Unknown Rx Torsemide [Demadex] 100 mg PO DAILY@0600 #30 tablet 07/24/19 08/02/19 Unknown Rx guaiFENesin ER [Mucinex ER] 600 mg PO BID #60 tablet 07/24/19 08/02/19 Unknown Rx oxyCODONE /ACETAMINOPHEN [Percocet 1 tab PO Q6H PRN tablet 07/24/19 08/02/19 Unknown Rx 5/325 mg] predniSONE [Deltasone] 20 mg PO QDAY #7 tablet 07/24/19 08/02/19 Unknown Rx Active Meds: Active Medications Acetaminophen (Tylenol) 650 mg PO Q4H PRN PRN Reason: Pain MILD(1-3)/Fever >100.5/TRUJILLO Apixaban (Eliquis) 5 mg PO BID ON LICENSE OF [facility]; Protocol Last Admin: 08/02/19 09:58 Dose: 5 mg Documented by: Aspirin (Baby Aspirin) 81 mg PO QDAY ON LICENSE OF [facility] Last Admin: 08/02/19 09:58 Dose: 81 mg Documented by: Atorvastatin Calcium (Lipitor) 40 mg PO QHS ON LICENSE OF [facility] Digoxin (Lanoxin) 0.25 mg PO DAILY@1700 ON LICENSE OF [facility] Docusate Sodium (Colace) 100 mg PO BID ON LICENSE OF [facility] Last Admin: 08/02/19 09:59 Dose: 100 mg Documented by: Famotidine (Pepcid) 20 mg PO BID ON LICENSE OF [facility] Last Admin: 08/02/19 09:58 Dose: 20 mg Documented by: Furosemide (Lasix) 40 mg IV 0600,1800 ON LICENSE OF [facility] Last Admin: 08/02/19 05:42 Dose: 40 mg Documented by: Hydromorphone HCl (Dilaudid) 0.5 mg IV Q4H PRN PRN Reason: Pain , Severe (7-10) Last Admin: 08/02/19 05:52 Dose: 0.5 mg Documented by: Levofloxacin/Dextrose (Levaquin 750mg/150ml) 750 mg in 150 mls @ 100 mls/hr IV Q24HR ON LICENSE OF [facility]; Protocol Last Infusion: 08/02/19 14:26 Dose: Infused Documented by: Insulin Human Lispro (Humalog) 0 unit SUB-Q ACHS ON LICENSE OF [facility]; Protocol Last Admin: 08/02/19 12:45 Dose: Not Given Documented by: Metoclopramide HCl (Reglan) 10 mg IV Q6H PRN PRN Reason: Nausea And Vomiting Metoprolol Tartrate (Metoprolol) 50 mg PO TID ON LICENSE OF [facility] Last Admin: 08/02/19 14:26 Dose: Not Given Documented by: Metoprolol Tartrate (Metoprolol) 25 mg PO TID ON LICENSE OF [facility] Last Admin: 08/02/19 14:27 Dose: Not Given Documented by: Nicotine (Habitrol) 14 mg TD QDAY ON LICENSE OF [facility] Last Admin: 08/02/19 09:59 Dose: Not Given Documented by: Ondansetron HCl (Zofran) 4 mg IV Q8H PRN PRN Reason: Nausea And Vomiting Oxycodone HCl (Roxicodone) 5 mg PO Q6H PRN PRN Reason: Pain, (7-10) Oxycodone/Acetaminophen (Percocet 5/325) 1 tab PO Q6H PRN PRN Reason: Pain , Severe (7-10) Last Admin: 08/02/19 10:02 Dose: 1 tab Documented by: Potassium Chloride (K-Dur) 20 meq PO Q12H ON LICENSE OF [facility] Last Admin: 08/02/19 05:42 Dose: 20 meq Documented by: Prednisone (Deltasone) 20 mg PO QDAY ON LICENSE OF [facility] Last Admin: 08/02/19 09:59 Dose: 20 mg Documented by: Sodium Bicarbonate (Sodium Bicarbonate) 1,300 mg PO BID ON LICENSE OF [facility] Last Admin: 08/02/19 09:59 Dose: 1,300 mg Documented by: Sodium Chloride (Sodium Chloride Flush Syringe 10 Ml) 10 ml IV PRN PRN PRN Reason: LINE FLUSH Sodium Chloride (Sodium Chloride Flush Syringe 10 Ml) 10 ml IV BID ON LICENSE OF [facility] Physical Examination Vital Signs Pulse Resp 113 H 28 H 08/01/19 18:40 08/01/19 18:40 General appearance: no acute distress HEENT: Positive: PERRL Neck: Positive: trachea midline Cardiac: Positive: irregularly irregular Lungs: Positive: Decreased Breath Sounds Extremities: Present: edema, Other (LLE ulcer) Results 08/01/19 18:49 08/01/19 18:49 Cardiac Enzymes 08/01/19 Range/Units 18:49 AST 23 (5-40) units/L Coagulation 08/01/19 Range/Units 18:49 PT 13.9 (12.2-14.9) Sec. INR 1.08 (0.87-1.13) APTT 30.8 (24.2-36.6) Sec. Lipids 08/01/19 Range/Units 18:49 Triglycerides 69 (2-149) mg/dL Cholesterol 131 (50-199) mg/dL HDL Cholesterol 41 (40-59) mg/dL Cholesterol/HDL Ratio 3.19 % CBC 08/01/19 Range/Units 18:49 WBC 9.5 (4.5-11.0) K/mm3 RBC 4.02 (3.65-5.03) M/mm3 Hgb 11.6 L (11.8-15.2) gm/dl Hct 36.2 (35.5-45.6) % Plt Count 197 (140-440) K/mm3 Lymph # 1.0 L (1.2-5.4) K/mm3 [place] # 0.9 H (0.0-0.8) K/mm3 Eos # 0.0 (0.0-0.4) K/mm3 Baso # 0.1 (0.0-0.1) K/mm3 Comprehensive Metabolic Panel 08/01/19 08/01/19 Range/Units 18:49 18:49 Sodium 142 (137-145) mmol/L Potassium 3.8 (3.6-5.0) mmol/L Chloride 103.4 (98-107) mmol/L Carbon Dioxide 21 L (22-30) mmol/L BUN 19 (9-20) mg/dL Creatinine 1.3 (0.8-1.5) mg/dL Glucose 81 (75-100) mg/dL Calcium 8.8 (8.4-10.2) mg/dL Direct Bilirubin 1.0 H (0-0.2) mg/dL Indirect Bilirubin 0.8 mg/dL AST 23 (5-40) units/L ALT 26 (7-56) units/L Alkaline Phosphatase 212 H (35-129) units/L Total Protein 8.2 (6.3-8.2) g/dL Albumin 3.4 L (3.9-5) g/dL Assessment and Plan Recurrent Pleural effusion s/p thoracentesis Chronic systolic heart failure Chronic renal failure LLE ulcer Chronic atrial fibrillation on Eliquis for oral anticoagulation as an outpatient rate controlled with metoprolol and digoxin Hx of Nonischemic cardiomyopathy EF 15-20% by echo 11/2018 Presence of the ICD recent interrogation revealed a normal functioning device Essential hypertension Type 2 diabetes mellitus Chronic obstructive pulmonary disease Recommendations: We will defer to pulmonary medicine for further management of recurrent large right pleural effusion. Fluid/sodium restriction. Continue medical therapy for chronic systolic heart failure. Continue rate control strategy for his atrial fibrillation.
--- NOTE | 2019-08-02 15:04 | XRay Report ---
CHEST 1 VIEW INDICATION: right pleural effusion, recent thora. COMPARISON: 08/01/2019 FINDINGS: Support devices: Pacemaker device remains in the same position. Heart: Stable moderate cardiomegaly. Lungs/Pleura: Large right pleural effusion has been 75% evacuated. Small right pleural effusion persi sts. There are mild congestive changes in the right lung. The left lung is clear. No pneumothorax is visualized. Additional findings: None. IMPRESSION: 75% decrease in the right pleural effusion. No pneumothorax. Signer Name: Tenzin Vallejo Jr, MD Signed: 08/02/2019 3:00 PM Workstation Name: [id number]
--- NOTE | 2019-08-02 15:12 | Progress Note ---
Assessment and Plan Assessment and plan: Recurrent Pleural effusion -s/p thoracentesis 08/02/19. Consult Pulm for further eval Chronic systolic heart failure. Fluid/sodium restriction. Continue medical therapy for chronic systolic heart failure. Cardiology consulted Acute on Chronic renal failure. Acute kidney injury superimposed on chronic kidney disease creatinine is improved but apparent baseline Continue diuretics per Renal. LLE ulcer. Wound care Chronic atrial fibrillation Cont. on Eliquis for oral anticoagulation as an outpatient rate controlled with metoprolol and digoxin Hx of Nonischemic cardiomyopathy EF 15-20% by echo 11/2018 Presence of the ICD recent interrogation revealed a normal functioning device hypertension. Cont current regimen Type 2 diabetes mellitus. Accuchecks and SSRI Chronic obstructive pulmonary disease. Stable History Interval history: No new issues overnight Hospitalist Physical - Constitutional Vitals: Temp Pulse Resp BP Pulse Ox 98.7 F 79 18 97/72 92 08/02/19 11:46 08/02/19 14:27 08/02/19 11:46 08/02/19 14:27 08/02/19 11:46 General appearance: Present: no acute distress - EENT Eyes: Present: PERRL, EOM intact ENT: hearing intact, clear oral mucosa, dentition normal - Neck Neck: Present: supple, normal ROM - Respiratory Respiratory effort: normal Respiratory: bilateral: CTA - Cardiovascular Rhythm: regular Heart Sounds: Present: S1 & S2. Absent: gallop, rub - Extremities Extremities: no ischemia, No edema, Full ROM - Abdominal General gastrointestinal: soft, non-tender, non-distended, normal bowel sounds - Integumentary Integumentary: Present: clear, warm, dry - Neurologic Neurologic: CNII-XII intact, moves all extremities Results - Labs CBC & Chem 7: 08/01/19 18:49 08/01/19 18:49 Labs: Laboratory Last Values WBC 9.5 K/mm3 (4.5-11.0) 08/01/19 18:49 RBC 4.02 M/mm3 (3.65-5.03) 08/01/19 18:49 Hgb 11.6 gm/dl (11.8-15.2) L 08/01/19 18:49 Hct 36.2 % (35.5-45.6) 08/01/19 18:49 MCV 90 fl (84-94) 08/01/19 18:49 MCH 29 pg (28-32) 08/01/19 18:49 MCHC 32 % (32-34) 08/01/19 18:49 RDW 19.3 % (13.2-15.2) H 08/01/19 18:49 Plt Count 197 K/mm3 (140-440) 08/01/19 18:49 Lymph % (Auto) 10.0 % (13.4-35.0) L 08/01/19 18:49 [place] % (Auto) 9.5 % (0.0-7.3) H 08/01/19 18:49 Eos % (Auto) 0.5 % (0.0-4.3) 08/01/19 18:49 Baso % (Auto) 0.8 % (0.0-1.8) 08/01/19 18:49 Lymph # 1.0 K/mm3 (1.2-5.4) L 08/01/19 18:49 [place] # 0.9 K/mm3 (0.0-0.8) H 08/01/19 18:49 Eos # 0.0 K/mm3 (0.0-0.4) 08/01/19 18:49 Baso # 0.1 K/mm3 (0.0-0.1) 08/01/19 18:49 Seg Neutrophils % 79.2 % (40.0-70.0) H 08/01/19 18:49 Seg Neutrophils # 7.5 K/mm3 (1.8-7.7) 08/01/19 18:49 PT 13.9 Sec. (12.2-14.9) 08/01/19 18:49 INR 1.08 (0.87-1.13) 08/01/19 18:49 APTT 30.8 Sec. (24.2-36.6) 08/01/19 18:49 Sodium 142 mmol/L (137-145) 08/01/19 18:49 Potassium 3.8 mmol/L (3.6-5.0) 08/01/19 18:49 Chloride 103.4 mmol/L (98-107) 08/01/19 18:49 Carbon Dioxide 21 mmol/L (22-30) L 08/01/19 18:49 Anion Gap 21 mmol/L 08/01/19 18:49 BUN 19 mg/dL (9-20) 08/01/19 18:49 Creatinine 1.3 mg/dL (0.8-1.5) 08/01/19 18:49 Estimated GFR > 60 ml/min 08/01/19 18:49 BUN/Creatinine Ratio 15 % 08/01/19 18:49 Glucose 81 mg/dL (75-100) 08/01/19 18:49 POC Glucose 144 (70-105) H 08/02/19 11:18 Hemoglobin A1c 5.9 % (4-6) 08/02/19 07:49 Calcium 8.8 mg/dL (8.4-10.2) 08/01/19 18:49 Total Bilirubin 1.80 mg/dL (0.1-1.2) H 08/01/19 18:49 Direct Bilirubin 1.0 mg/dL (0-0.2) H 08/01/19 18:49 Indirect Bilirubin 0.8 mg/dL 08/01/19 18:49 AST 23 units/L (5-40) 08/01/19 18:49 ALT 26 units/L (7-56) 08/01/19 18:49 Alkaline Phosphatase 212 units/L (35-129) H 08/01/19 18:49 Troponin T 0.054 ng/mL (0.00-0.029) H 08/02/19 00:28 NT-Pro-B Natriuret Pep 79930 pg/mL (0-900) H 08/01/19 18:49 Total Protein 8.2 g/dL (6.3-8.2) 08/01/19 18:49 Albumin 3.4 g/dL (3.9-5) L 08/01/19 18:49 Albumin/Globulin Ratio 0.7 % 08/01/19 18:49 Triglycerides 69 mg/dL (2-149) 08/01/19 18:49 Cholesterol 131 mg/dL (50-199) 08/01/19 18:49 LDL Cholesterol Direct 88 mg/dL (50-130) 08/01/19 18:49 HDL Cholesterol 41 mg/dL (40-59) 08/01/19 18:49 Cholesterol/HDL Ratio 3.19 % 08/01/19 18:49 Active Medications - Current Medications Current Medications: Generic Name Dose Route Start Last Admin Trade Name Freq PRN Reason Stop Dose Admin Acetaminophen 650 mg 08/02/19 04:18 Tylenol PO Q4H PRN Pain MILD(1-3)/Fever >100.5/TRUJILLO Apixaban 5 mg 08/02/19 10:00 08/02/19 09:58 Eliquis PO [address] [facility] Administration Protocol Aspirin 81 mg 08/02/19 10:00 08/02/19 09:58 Baby Aspirin PO [address] [facility] Administration Atorvastatin Calcium 40 mg 08/02/19 22:[address] [facility] Digoxin 0.25 mg 08/02/19 17:00 Lanoxin PO DAILY@1700 [facility] Docusate Sodium 100 mg 08/02/19 10:00 08/02/19 09:59 Colace PO [address] [facility] Administration Famotidine 20 mg 08/02/19 10:00 08/02/19 09:58 Pepcid PO [address] [facility] Administration Furosemide 40 mg 08/02/19 06:00 08/02/19 05:42 Lasix IV 40 mg 0600,1800 [facility] Administration Hydromorphone HCl 0.5 mg 08/02/19 01:32 08/02/19 05:52 Dilaudid IV 0.5 mg Q4H PRN Administration Pain , Severe (7-10) Levofloxacin/Dextrose 750 mg in 150 mls @ 100 mls/hr 08/02/19 10:00 08/02/19 14:26 Levaquin 750mg/150ml IV Infused Q24HR [facility] Infusion Protocol Insulin Human Lispro 0 unit 08/02/19 07:30 08/02/19 12:45 Humalog SUB-Q Not Given ACHS [facility] Protocol Metoclopramide HCl 10 mg 08/02/19 04:12 Reglan IV Q6H PRN Nausea And Vomiting Metoprolol Tartrate 50 mg 08/02/19 08:00 08/02/19 14:26 Metoprolol PO Not Given TID [facility] Metoprolol Tartrate 25 mg 08/02/19 08:00 08/02/19 14:27 Metoprolol PO Not Given TID [facility] Nicotine 14 mg 08/02/19 10:00 08/02/19 09:59 Habitrol TD Not Given QDAY [facility] Ondansetron HCl 4 mg 08/02/19 04:12 Zofran IV Q8H PRN Nausea And Vomiting Oxycodone HCl 5 mg 08/02/19 04:18 Roxicodone PO Q6H PRN Pain, (7-10) Oxycodone/Acetaminophen 1 tab 08/02/19 04:09 08/02/19 10:02 Percocet 5/325 PO 1 tab Q6H PRN Administration Pain , Severe (7-10) Potassium Chloride 20 meq 08/02/19 05:00 08/02/19 05:42 K-Dur PO 20 meq Q12H [facility]MY[facility] Administration Prednisone 20 mg 08/02/19 10:00 08/02/19 09:59 Deltasone PO 20 mg QDAY [facility] Administration Sodium Bicarbonate 1,300 mg 08/02/19 10:00 08/02/19 09:59 Sodium Bicarbonate PO 1,300 mg BID [facility] Administration Sodium Chloride 10 ml 08/02/19 04:12 Sodium Chloride Flush Syringe 10 Ml IV PRN PRN LINE FLUSH Sodium Chloride 10 ml 08/02/19 10:00 Sodium Chloride Flush Syringe 10 Ml IV BID [facility]
[2019-08-02] MEDS ORDERED: DIGOXIN 0.25 MG TAB PO SCH (17:00)
[2019-08-03 05:17] LABS: Basophils # (Auto) 0.1 K/mm3 (0.0-0.1); Basophils % (Auto) 0.5 % (0.0-1.8); Hematocrit 34.3 % (35.5-45.6); Lymphocytes # (Auto) 0.9 K/mm3 (1.2-5.4); Lymphocytes % (Auto) 9.5 % (13.4-35.0); Mean Corpuscular HGB Conc 32 % (32-34); Mean Corpuscular Volume 91 fl (84-94); Monocytes # (Auto) 0.7 K/mm3 (0.0-0.8); Platelet Count 202 K/mm3 (140-440); Red Blood Count 3.76 M/mm3 (3.65-5.03); Red Cell Distribution Width 19.4 % (13.2-15.2)
[2019-08-03] MEDS: POTASSIUM CHLORIDE ER 20 MEQ TAB PO SCH (05:34)
[2019-08-03 05:37] LABS: Albumin 2.9 g/dL (3.9-5); Calcium 8.1 mg/dL (8.4-10.2)
[2019-08-03] MEDS: FUROSEMIDE 40 MG/4 ML INJ IV SCH ×2 (06:07→20:37)
[2019-08-03] MEDS: oxyCODONE 5 MG TAB PO PRN (08:17)
[2019-08-03] MEDS: INSULIN LISPRO 100 UNIT/ML SUB-Q SCH ×4 (08:18→22:25)
[2019-08-03] MEDS: METOPROLOL TARTRATE 50 MG TAB PO SCH ×3 (08:53→22:24)
[2019-08-03] MEDS: METOPROLOL TARTRATE 25 MG TAB PO SCH ×3 (08:53→22:24)
[2019-08-03] MEDS: SODIUM BICARBONATE 650 MG TAB PO SCH ×2 (09:10→22:22)
[2019-08-03] MEDS: predniSONE 20 MG TAB PO SCH (09:10)
[2019-08-03] MEDS: ASPIRIN 81 MG TAB CHEW PO SCH (09:10)
[2019-08-03] MEDS: DOCUSATE SODIUM 100 MG CAP PO SCH ×2 (09:10→22:22)
[2019-08-03] MEDS: FAMOTIDINE 20 MG TAB PO SCH ×2 (09:11→22:22)
[2019-08-03] MEDS: APIXABAN 5 MG TAB PO SCH ×2 (09:11→22:24)
[2019-08-03] MEDS: NICOTINE 14 MG/24 HR PATCH TD SCH (09:14)
--- NOTE | 2019-08-03 14:28 | Progress Note ---
Assessment and Plan Recurrent Pleural effusion s/p thoracentesis Chronic systolic heart failure Chronic renal failure LLE ulcer Chronic atrial fibrillation on Eliquis for oral anticoagulation as an outpatient rate controlled with metoprolol and digoxin Hx of Nonischemic cardiomyopathy EF 15-20% by echo 11/2018 Presence of the ICD an interrogation this admission reports no AICD discharge; a normal functioning device. Essential hypertension Type 2 diabetes mellitus Chronic obstructive pulmonary disease Recommendations: Fluid/sodium restriction. Continue medical therapy for chronic systolic heart failure. Continue rate control strategy for his atrial fibrillation. We will follow intermittently. Subjective Date of service: 08/03/19 Interval history: Patient was transferred to CCU following an episode of unresponsiveness of yesterday. Today he is awake and alert. He denies chest pain and palpitations. A device interrogation reveals no evidence of AICD discharge; a normal functioning device. Objective Vital Signs Temp Pulse Pulse Pulse Resp BP Pulse Ox 08/03/19 12:50 82 20 113/56 84 08/03/19 12:40 87 15 113/56 100 08/03/19 12:30 84 18 113/56 87 08/03/19 12:20 81 19 113/56 64 L 08/03/19 12:10 74 13 113/56 88 08/03/19 12:00 97.6 F 95 H 16 114/81 90 08/03/19 11:50 77 13 114/81 96 08/03/19 11:40 82 16 114/81 96 08/03/19 11:30 79 20 114/81 94 08/03/19 11:20 78 15 114/81 96 08/03/19 11:10 76 12 114/81 99 08/03/19 11:00 77 13 104/83 96 08/03/19 10:50 77 16 114/81 97 08/03/19 10:40 73 9 L 114/81 97 08/03/19 10:30 82 19 114/81 90 08/03/19 10:20 93 H 19 114/81 96 08/03/19 10:10 87 15 114/81 95 08/03/19 10:00 83 16 114/81 95 08/03/19 09:50 86 17 102/62 98 08/03/19 09:40 74 15 102/62 97 08/03/19 09:30 80 18 102/62 98 08/03/19 09:20 84 13 102/62 91 08/03/19 09:10 79 17 102/62 91 08/03/19 09:00 88 12 102/62 82 L 08/03/19 08:53 86 118/88 08/03/19 08:50 86 13 105/75 79 L 08/03/19 08:40 82 12 105/75 97 08/03/19 08:30 73 20 105/75 96 08/03/19 08:20 71 27 H 47/12 98 08/03/19 08:16 97 08/03/19 08:10 75 22 111/83 96 08/03/19 08:00 97.4 F L 77 18 111/83 98 08/03/19 07:50 78 13 95/78 90 08/03/19 07:40 79 19 80/52 97 08/03/19 07:30 70 13 80/52 94 08/03/19 07:20 79 19 107/76 96 08/03/19 07:10 73 16 101/78 97 08/03/19 07:00 75 18 101/78 97 08/03/19 06:50 77 13 98 08/03/19 06:40 75 15 84/69 99 08/03/19 06:30 72 12 84/69 99 08/03/19 06:20 75 21 91/59 97 08/03/19 06:10 71 15 104/72 97 08/03/19 06:00 71 17 104/72 92 08/03/19 05:50 71 19 104/71 90 08/03/19 05:40 80 12 93 08/03/19 05:30 80 18 114/70 94 08/03/19 05:20 76 11 L 114/70 94 08/03/19 05:10 79 20 104/77 94 08/03/19 05:00 77 13 104/77 95 08/03/19 04:50 76 19 94/66 91 08/03/19 04:40 77 17 114/64 94 08/03/19 04:30 76 17 106/73 99 08/03/19 04:20 76 17 106/73 94 08/03/19 04:10 73 16 121/64 98 08/03/19 04:00 80 16 121/64 89 08/03/19 03:50 76 13 114/69 99 08/03/19 03:40 88 22 111/79 100 08/03/19 03:36 98.4 F 08/03/19 03:30 77 15 113/93 100 08/03/19 03:20 77 15 113/93 98 08/03/19 03:10 80 16 113/87 96 08/03/19 03:00 81 19 113/87 91 08/03/19 02:50 80 13 118/86 98 08/03/19 02:40 81 15 115/84 100 08/03/19 02:30 80 15 121/89 100 08/03/19 02:20 85 22 121/89 100 08/03/19 02:10 81 17 126/87 100 08/03/19 02:00 84 12 126/87 97 08/03/19 01:50 86 20 132/97 94 08/03/19 01:40 83 23 116/87 95 08/03/19 01:30 87 16 116/87 95 08/03/19 01:20 86 20 116/87 99 08/03/19 01:10 86 24 124/83 98 08/03/19 01:00 84 16 124/83 97 08/03/19 00:50 89 21 114/91 95 08/03/19 00:40 87 17 110/81 97 08/03/19 00:30 82 14 110/81 98 08/03/19 00:20 76 17 105/79 99 08/03/19 00:10 77 16 114/90 99 08/03/19 00:00 84 14 101/72 99 08/02/19 23:50 101/72 99 08/02/19 23:45 98/72 100 08/02/19 23:40 98/72 100 08/02/19 23:33 97.8 F 08/02/19 23:30 98/72 99 08/02/19 23:20 100/80 99 08/02/19 23:10 125/89 98 08/02/19 23:00 125/89 97 08/02/19 22:50 81 21 125/89 98 08/02/19 22:40 86 15 121/84 97 08/02/19 22:30 82 11 L 121/84 99 08/02/19 22:20 86 17 114/88 98 08/02/19 22:10 91 H 19 111/87 98 08/02/19 22:00 81 111/87 100 08/02/19 21:50 111/84 97 08/02/19 21:40 117/97 98 08/02/19 21:30 84 24 117/97 97 08/02/19 21:20 88 14 128/95 99 08/02/19 21:10 96 H 11 L 135/75 96 08/02/19 21:00 90 15 115/76 96 08/02/19 20:50 85 15 115/76 92 08/02/19 20:40 87 18 115/86 91 08/02/19 20:30 87 27 H 115/86 93 08/02/19 20:20 81 23 113/88 93 08/02/19 20:10 88 34 H 108/90 91 08/02/19 20:00 97.5 F L 85 28 H 108/90 89 08/02/19 19:50 78 25 H 106/83 93 08/02/19 19:40 89 22 114/84 94 08/02/19 19:30 80 23 114/84 97 08/02/19 19:20 83 20 115/80 100 08/02/19 19:10 80 22 118/90 98 08/02/19 19:00 84 21 118/90 95 08/02/19 18:50 123/83 77 L 08/02/19 18:40 122/90 94 08/02/19 18:30 137/87 84 08/02/19 18:20 137/87 87 08/02/19 18:10 82 16 107/69 92 08/02/19 18:08 83 107/69 08/02/19 18:00 107/69 98 08/02/19 17:50 77 16 95/72 96 08/02/19 17:40 81 17 92/68 96 08/02/19 17:30 83 21 92/68 92 08/02/19 17:20 83 29 H 88/65 89 08/02/19 17:10 85 23 93 08/02/19 17:00 84 17 101/81 92 08/02/19 16:50 79 18 101/81 91 08/02/19 16:40 81 21 112/91 92 08/02/19 16:30 98.4 F 16 08/02/19 16:10 132 H 118/81 64 L 12/02/19 16:00 132 H 132 H 16 94 08/02/19 14:27 79 97/72 08/02/19 14:26 79 97/72 - Physical Examination General: No Apparent Distress HEENT: Positive: PERRL Neck: Positive: trachea midline Cardiac: Positive: irregularly irregular Lungs: Positive: Decreased Breath Sounds Neuro: Positive: Grossly Intact Extremities: Present: edema, Other (LLE ulcer) - Labs and Meds Cardiac Enzymes 08/03/19 Range/Units 04:57 AST 21 (5-40) units/L CBC 08/03/19 Range/Units 04:57 WBC 9.9 (4.5-11.0) K/mm3 RBC 3.76 (3.65-5.03) M/mm3 Hgb 11.0 L (11.8-15.2) gm/dl Hct 34.3 L (35.5-45.6) % Plt Count 202 (140-440) K/mm3 Lymph # 0.9 L (1.2-5.4) K/mm3 Wagoner # 0.7 (0.0-0.8) K/mm3 Eos # 0.0 (0.0-0.4) K/mm3 Baso # 0.1 (0.0-0.1) K/mm3 Comprehensive Metabolic Panel 08/03/19 Range/Units 04:57 Sodium 137 (137-145) mmol/L Potassium 5.0 D (3.6-5.0) mmol/L Chloride 101.5 (98-107) mmol/L Carbon Dioxide 25 (22-30) mmol/L BUN 30 H (9-20) mg/dL Creatinine 2.1 H D (0.8-1.5) mg/dL Glucose 140 H (75-100) mg/dL Calcium 8.1 L (8.4-10.2) mg/dL AST 21 (5-40) units/L ALT 20 (7-56) units/L Alkaline Phosphatase 195 H (35-129) units/L Total Protein 6.6 (6.3-8.2) g/dL Albumin 2.9 L (3.9-5) g/dL
--- NOTE | 2019-08-03 15:21 | Consultation ---
History of Present Illness Consult date: 08/03/19 Requesting physician: SHRADDHA HERBERT Reason for consult: pleural effusion (recurrent) History of present illness: PULMONARY/CCM CONSULT NOTE (Full dictation # [id number]) Please see dictated notes for full details Medications and Allergies Allergies Allergy/AdvReac Type Severity Reaction Status Date / Time Penicillins Allergy Itching Verified 03/05/19 22:41 strawberry Allergy Hives Verified 03/05/19 22:41 Home Medications Medication Instructions Recorded Confirmed Last Taken Type Aspirin [Aspirin BABY CHEW TAB] 81 mg PO QDAY #30 tab.chew 03/14/19 08/02/19 07/19/19 15:57 Rx Acetaminophen [Acetaminophen TAB] 2 tab PO Q4H PRN #15 tablet 06/25/19 08/02/19 07/19/19 15:58 Rx Apixaban [Eliquis] 1 tab PO BID #60 tablet 07/24/19 08/02/19 Unknown Rx AtorvaSTATin [Lipitor] 40 mg PO QHS #30 tablet 07/24/19 08/02/19 Unknown Rx Colchicine 0.6 mg PO QDAY #10 capsule 07/24/19 08/02/19 Unknown Rx Digoxin [Lanoxin] 0.25 mg PO DAILY@1700 #30 tablet 07/24/19 08/02/19 Unknown Rx Docusate Sodium [Colace CAP] 100 mg PO BID capsule 07/24/19 08/02/19 Unknown Rx Metoprolol [Lopressor TAB] 75 mg PO TID #90 tablet 07/24/19 08/02/19 Unknown Rx Nicotine [Habitrol] 14 mg TD QDAY #30 patch 07/24/19 08/02/19 Unknown Rx Oxycodone HCl/Acetaminophen 1 each PO Q6HR PRN #20 tablet 07/24/19 08/02/19 Unk nown Rx [Percocet 10/325 mg] Sodium Bicarbonate 1,300 mg PO BID #90 tablet 07/24/19 08/02/19 Unknown Rx Torsemide [Demadex] 100 mg PO DAILY@0600 #30 tablet 07/24/19 08/02/19 Unknown Rx guaiFENesin ER [Mucinex ER] 600 mg PO BID #60 tablet 07/24/19 08/02/19 Unknown Rx oxyCODONE /ACETAMINOPHEN [Percocet 1 tab PO Q6H PRN tablet 07/24/19 08/02/19 Unknown Rx 5/325 mg] predniSONE [Deltasone] 20 mg PO QDAY #7 tablet 07/24/19 08/02/19 Unknown Rx Active Meds: Active Medications Acetaminophen (Tylenol) 650 mg PO Q4H PRN PRN Reason: Pain MILD(1-3)/Fever >100.5/TRUJILLO Apixaban (Eliquis) 5 mg PO BID [facility]; Protocol Last Admin: 08/03/19 09:11 Dose: 5 mg Documented by: Aspirin (Baby Aspirin) 81 mg PO QDAY [facility] Last Admin: 08/03/19 09:10 Dose: 81 mg Documented by: Atorvastatin Calcium (Lipitor) 40 mg PO QHS [facility] Last Admin: 08/02/19 22:07 Dose: 40 mg Documented by: Digoxin (Lanoxin) 0.25 mg PO Q48H [facility] Docusate Sodium (Colace) 100 mg PO BID [facility] Last Admin: 08/03/19 09:10 Dose: 100 mg Documented by: Famotidine (Pepcid) 20 mg PO BID [facility] Last Admin: 08/03/19 09:11 Dose: 20 mg Documented by: Furosemide (Lasix) 40 mg IV 0600,1800 [facility] Last Admin: 08/03/19 06:07 Dose: 40 mg Documented by: Hydromorphone HCl (Dilaudid) 0.5 mg IV Q4H PRN PRN Reason: Pain , Severe (7-10) Last Admin: 08/02/19 05:52 Dose: 0.5 mg Documented by: Levofloxacin/Dextrose (Levaquin 750mg/150ml) 750 mg in 150 mls @ 100 mls/hr IV Q24HR [facility]; Protocol Last Admin: 08/03/19 09:15 Dose: 100 mls/hr Documented by: Insulin Human Lispro (Humalog) 0 unit SUB-Q ACHS [facility]; Protocol Last Admin: 08/03/19 13:00 Dose: Not Given Documented by: Metoclopramide HCl (Reglan) 10 mg IV Q6H PRN PRN Reason: Nausea And Vomiting Metoprolol Tartrate (Metoprolol) 50 mg PO TID [facility] Last Admin: 08/03/19 08:53 Dose: 50 mg Documented by: Metoprolol Tartrate (Metoprolol) 25 mg PO TID [facility] Last Admin: 08/03/19 08:53 Dose: 25 mg Documented by: Nicotine (Habitrol) 14 mg TD QDAY [facility] Last Admin: 08/03/19 09:14 Dose: Not Given Documented by: Ondansetron HCl (Zofran) 4 mg IV Q8H PRN PRN Reason: Nausea And Vomiting Oxycodone HCl (Roxicodone) 5 mg PO Q6H PRN PRN Reason: Pain, (7-10) Last Admin: 08/03/19 08:17 Dose: 5 mg Documented by: Oxycodone/Acetaminophen (Percocet 5/325) 1 tab PO Q6H PRN PRN Reason: Pain , Severe (7-10) Last Admin: 08/02/19 22:16 Dose: 1 tab Documented by: Prednisone (Deltasone) 20 mg PO QDAY [facility] Last Admin: 08/03/19 09:10 Dose: 20 mg Documented by: Sodium Bicarbonate (Sodium Bicarbonate) 1,300 mg PO BID [facility] Last Admin: 08/03/19 09:10 Dose: 1,300 mg Documented by: Sodium Chloride (Sodium Chloride Flush Syringe 10 Ml) 10 ml IV PRN PRN PRN Reason: LINE FLUSH Sodium Chloride (Sodium Chloride Flush Syringe 10 Ml) 10 ml IV BID [facility] Last Admin: 08/03/19 09:16 Dose: 10 ml Documented by: Physical Examination Vital signs: Vital Signs Pulse Resp 113 H 28 H 08/01/19 18:40 08/01/19 18:40 Results - Laboratory Findings CBC and BMP: 08/03/19 04:57 08/03/19 04:57 PT/INR, D-dimer PT 13.9 Sec. (12.2-14.9) 08/01/19 18:49 INR 1.08 (0.87-1.13) 08/01/19 18:49 Abnormal lab findings: Abnormal Labs 08/01/19 08/01/19 08/01/19 18:49 18:49 18:49 Hgb 11.6 L Hct RDW 19.3 H Lymph % (Auto) 10.0 L Jennings % (Auto) 9.5 H Lymph # 1.0 L Jennings # 0.9 H Seg Neutrophils % 79.2 H Seg Neutrophils # Carbon Dioxide 21 L BUN Creatinine Glucose POC Glucose Calcium Total Bilirubin 1.80 H Direct Bilirubin 1.0 H Alkaline Phosphatase 212 H Troponin T 0.044 H NT-Pro-B Natriuret Pep 29667 H Albumin 3.4 L 08/01/19 08/02/19 08/02/19 21:07 00:28 10:14 Hgb Hct RDW Lymph % (Auto) Jennings % (Auto) Lymph # Jennings # Seg Neutrophils % Seg Neutrophils # Carbon Dioxide BUN Creatinine Glucose POC Glucose 115 H Calcium Total Bilirubin Direct Bilirubin Alkaline Phosphatase Troponin T 0.049 H 0.054 H NT-Pro-B Natriuret Pep Albumin 08/02/19 08/02/19 08/02/19 11:18 16:04 21:51 Hgb Hct RDW Lymph % (Auto) Jennings % (Auto) Lymph # Jennings # Seg Neutrophils % Seg Neutrophils # Carbon Dioxide BUN Creatinine Glucose POC Glucose 144 H 126 H 130 H Calcium Total Bilirubin Direct Bilirubin Alkaline Phosphatase Troponin T NT-Pro-B Natriuret Pep Albumin 08/03/19 08/03/19 04:57 04:57 Hgb 11.0 L Hct 34.3 L RDW 19.4 H Lymph % (Auto) 9.5 L Jennings % (Auto) Lymph # 0.9 L Jennings # Seg Neutrophils % 83.0 H Seg Neutrophils # 8.2 H Carbon Dioxide BUN 30 H Creatinine 2.1 H D Glucose 140 H POC Glucose Calcium 8.1 L Total Bilirubin Direct Bilirubin Alkaline Phosphatase 195 H Troponin T NT-Pro-B Natriuret Pep Albumin 2.9 L
[2019-08-03] MEDS: oxyCODONE /ACETAMINOPHEN 5-325MG TAB PO PRN ×2 (15:34→22:23)
--- NOTE | 2019-08-03 16:16 | Progress Note ---
History Interval history: No new issues overnight Hospitalist Physical - Constitutional Vitals: Temp Pulse Resp BP Pulse Ox 97.6 F 86 16 118/91 98 08/03/19 15:38 08/03/19 15:00 08/03/19 14:30 08/03/19 15:10 08/03/19 15:10 General appearance: Present: no acute distress Results - Labs CBC & Chem 7: 08/03/19 04:57 08/03/19 04:57 Labs: Laboratory Last Values WBC 9.9 K/mm3 (4.5-11.0) 08/03/19 04:57 RBC 3.76 M/mm3 (3.65-5.03) 08/03/19 04:57 Hgb 11.0 gm/dl (11.8-15.2) L 08/03/19 04:57 Hct 34.3 % (35.5-45.6) L 08/03/19 04:57 MCV 91 fl (84-94) 08/03/19 04:57 MCH 29 pg (28-32) 08/03/19 04:57 MCHC 32 % (32-34) 08/03/19 04:57 RDW 19.4 % (13.2-15.2) H 08/03/19 04:57 Plt Count 202 K/mm3 (140-440) 08/03/19 04:57 Lymph % (Auto) 9.5 % (13.4-35.0) L 08/03/19 04:57 [place] % (Auto) 7.0 % (0.0-7.3) 08/03/19 04:57 Eos % (Auto) 0.0 % (0.0-4.3) 08/03/19 04:57 Baso % (Auto) 0.5 % (0.0-1.8) 08/03/19 04:57 Lymph # 0.9 K/mm3 (1.2-5.4) L 08/03/19 04:57 [place] # 0.7 K/mm3 (0.0-0.8) 08/03/19 04:57 Eos # 0.0 K/mm3 (0.0-0.4) 08/03/19 04:57 Baso # 0.1 K/mm3 (0.0-0.1) 08/03/19 04:57 Seg Neutrophils % 83.0 % (40.0-70.0) H 08/03/19 04:57 Seg Neutrophils # 8.2 K/mm3 (1.8-7.7) H 08/03/19 04:57 PT 13.9 Sec. (12.2-14.9) 08/01/19 18:49 INR 1.08 (0.87-1.13) 08/01/19 18:49 APTT 30.8 Sec. (24.2-36.6) 08/01/19 18:49 Sodium 137 mmol/L (137-145) 08/03/19 04:57 Potassium 5.0 mmol/L (3.6-5.0) D 08/03/19 04:57 Chloride 101.5 mmol/L (98-107) 08/03/19 04:57 Carbon Dioxide 25 mmol/L (22-30) 08/03/19 04:57 Anion Gap 16 mmol/L 08/03/19 04:57 BUN 30 mg/dL (9-20) H 08/03/19 04:57 Creatinine 2.1 mg/dL (0.8-1.5) H D 08/03/19 04:57 Estimated GFR 40 ml/min 08/03/19 04:57 BUN/Creatinine Ratio 14 % 08/03/19 04:57 Glucose 140 mg/dL (75-100) H 08/03/19 04:57 POC Glucose 102 (70-105) 08/03/19 12:02 Hemoglobin A1c 5.9 % (4-6) 08/02/19 07:49 Calcium 8.1 mg/dL (8.4-10.2) L 08/03/19 04:57 Total Bilirubin 1.20 mg/dL (0.1-1.2) 08/03/19 04:57 Direct Bilirubin 1.0 mg/dL (0-0.2) H 08/01/19 18:49 Indirect Bilirubin 0.8 mg/dL 08/01/19 18:49 AST 21 units/L (5-40) 08/03/19 04:57 ALT 20 units/L (7-56) 08/03/19 04:57 Alkaline Phosphatase 195 units/L (35-129) H 08/03/19 04:57 Troponin T 0.054 ng/mL (0.00-0.029) H 08/02/19 00:28 NT-Pro-B Natriuret Pep 70411 pg/mL (0-900) H 08/01/19 18:49 Total Protein 6.6 g/dL (6.3-8.2) 08/03/19 04:57 Albumin 2.9 g/dL (3.9-5) L 08/03/19 04:57 Albumin/Globulin Ratio 0.8 % 08/03/19 04:57 Triglycerides 69 mg/dL (2-149) 08/01/19 18:49 Cholesterol 131 mg/dL (50-199) 08/01/19 18:49 LDL Cholesterol Direct 88 mg/dL (50-130) 08/01/19 18:49 HDL Cholesterol 41 mg/dL (40-59) 08/01/19 18:49 Cholesterol/HDL Ratio 3.19 % 08/01/19 18:49 Active Medications - Current Medications Current Medications: Generic Name Dose Route Start Last Admin Trade Name Freq PRN Reason Stop Dose Admin Acetaminophen 650 mg 08/02/19 04:18 Tylenol PO Q4H PRN Pain MILD(1-3)/Fever >100.5/TRUJILLO Apixaban 5 mg 08/02/19 10:00 08/03/19 09:11 Eliquis PO 5 mg BID [facility] Administration Protocol Aspirin 81 mg 08/02/19 10:00 08/03/19 09:10 Baby Aspirin PO 81 mg QDAY [facility] Administration Atorvastatin Calcium 40 mg 08/02/19 22:00 08/02/19 22:07 Lipitor PO 40 mg QHS [facility] Administration Digoxin 0.25 mg 08/04/19 17:00 Lanoxin PO Q48H [facility] Docusate Sodium 100 mg 08/02/19 10:00 08/03/19 09:10 Colace PO 100 mg BID [facility] Administration Famotidine 20 mg 08/02/19 10:00 08/03/19 09:11 Pepcid PO 20 mg BID [facility] Administration Furosemide 40 mg 08/02/19 06:00 08/03/19 06:07 Lasix IV 40 mg 0600,1800 [facility] Administration Hydromorphone HCl 0.5 mg 08/02/19 01:32 08/02/19 05:52 Dilaudid IV 0.5 mg Q4H PRN Administration Pain , Severe (7-10) Levofloxacin/Dextrose 750 mg in 150 mls @ 100 mls/hr 08/02/19 10:00 08/03/19 09:15 Levaquin 750mg/150ml IV 100 mls/hr Q24HR [facility] Administration Protocol Insulin Human Lispro 0 unit 08/02/19 07:30 08/03/19 13:00 Humalog SUB-Q Not Given ACHS [facility] Protocol Metoclopramide HCl 10 mg 08/02/19 04:12 Reglan IV Q6H PRN Nausea And Vomiting Metoprolol Tartrate 50 mg 08/02/19 08:00 08/03/19 15:00 Metoprolol PO 50 mg TID [facility] Administration Metoprolol Tartrate 25 mg 08/02/19 08:00 08/03/19 15:00 Metoprolol PO 25 mg TID [facility] Administration Nicotine 14 mg 08/02/19 10:00 08/03/19 09:14 Habitrol TD Not Given QDAY [facility] Ondansetron HCl 4 mg 08/02/19 04:12 Zofran IV Q8H PRN Nausea And Vomiting Oxycodone HCl 5 mg 08/02/19 04:18 08/03/19 08:17 Roxicodone PO 5 mg Q6H PRN Administration Pain, (7-10) Oxycodone/Acetaminophen 1 tab 08/02/19 04:09 08/03/19 15:34 Percocet 5/325 PO 1 tab Q6H PRN Administration Pain , Severe (7-10) Prednisone 20 mg 08/02/19 10:00 08/03/19 09:10 Deltasone PO 20 mg QDAY [facility] Administration Sodium Bicarbonate 1,300 mg 08/02/19 10:00 08/03/19 09:10 Sodium Bicarbonate PO 1,300 mg BID [facility] Administration Sodium Chloride 10 ml 08/02/19 04:12 Sodium Chloride Flush Syringe 10 Ml IV PRN PRN LINE FLUSH Sodium Chloride 10 ml 08/02/19 10:00 08/03/19 09:16 Sodium Chloride Flush Syringe 10 Ml IV 10 ml BID [facility] Administration
--- NOTE | 2019-08-03 18:25 | Consultation ---
PULMONARY CRITICAL CARE CONSULTATION CONSULTING PHYSICIAN: Dr. Cabrera. REASON FOR CONSULTATION: Recurrent right pleural effusion. CHIEF COMPLAINT AND HISTORY OF PRESENT ILLNESS: The patient is a 54-year-old -[place] male with past medical history significant for a diagnosis of congestive heart failure, ejection fraction 10%. He has an AICD implant, who came in to the Emergency Room for evaluation of shortness of breath that had been going on for about 3 days. He complained of chest pain/pressure. He has complained of some tingling in the left shoulder and pins and needles sensation. He admitted to a cough productive of greenish phlegm with occasional blood specks in it. He had recently been discharged from the hospital about a few days earlier for this right pleural effusion for which he had a thoracentesis at that time. He felt like his symptoms were recurring. He was admitted initially to the medical floor, but then he started to have his AICD malfunction and was transferred to the Intensive Care Unit where I stopped by to see him. When I stopped by to see him, he was resting in bed. He felt better he says after he had the thoracentesis done yesterday, but stated that his symptoms seem to be coming back all over again. He denied any nausea. He did have vomiting before he came in, but ruled out overt aspiration. He denied any fevers or chills. He denies any sick contacts. He has a 10+ pack year tobacco smoking history, smoking as much as 2 packs per day at a point, he is down to about 2-3 sticks per day now. He also complained of bilateral lower extremity swelling that is a little bit better with diuresis in the hospital. This really is as much of the history of presentation as I have. PAST MEDICAL HISTORY: Again, significant for hypertension, cerebrovascular accident, coronary artery disease, congestive heart failure, diabetes, history of asthma, history of COPD, history of neuropathy, history of atrial fibrillation and history of obstructive sleep apnea. PAST SURGICAL HISTORY: He has had an AICD placed before and he has had surgery to the left leg. MEDICATIONS: He was on at the time I stopped by to see him were reviewed, pertinent medications include the following: Tylenol 650 mg p.o. q. 4 hours p.r.n. mild pain or fevers, Eliquis 5 mg p.o. b.i.d., aspirin 81 mg p.o. daily, Lipitor 40 mg p.o. at bedtime, digoxin 0.25 mg p.o. q. 48 hours, docusate sodium 100 mg p.o. b.i.d., Pepcid 20 mg p.o. b.i.d., Lasix 40 mg IV b.i.d., Dilaudid 0.5 mg IV q. 4 hours p.r.n. severe pain, insulin via sliding scale, Levaquin 750 mg IV daily, Reglan 10 mg IV q. 6 hours p.r.n. nausea and vomiting, metoprolol 50 mg p.o. t.i.d. as well as 25 mg p.o. t.i.d. for a total of 75 mg p.o. t.i.d. scheduled, nicotine 14 mg per day patch, Zofran 4 mg IV q. 8 hours p.r.n. nausea and vomiting, Roxicodone 5 mg p.o. q. 6 hours p.r.n. moderate pain, prednisone 20 mg p.o. daily, sodium bicarbonate 1.3 grams p.o. b.i.d. ALLERGIES: PENICILLINS AND STRAWBERRIES. Nature of these allergies is unknown. DIET: Well-built gentleman. Denies acute weight loss or gain in the preceding few weeks to months. FAMILY AND SOCIAL HISTORY: Lives in the community. He has really about a 20+ pack year tobacco smoking history, now still smokes about 3 sticks a day. Denies alcohol or illicit drug use or abuse. FAMILY HISTORY: Otherwise, noncontributory. REVIEW OF SYSTEMS: No loss of consciousness. No new onset seizures. No new onset focal weakness. Denies gross hematochezia or melena. Denies diarrhea. Denies gross hematuria or dysuria. Denies any hematemesis. He had the streaky hemoptysis. He denies polydipsia or polyuria. Denied heat or cold intolerance. He had vomiting. He denied any hematemesis. He denies periods of unexplained sadness and/or elation as may be consistent with psychiatric type disorders. Complete 13-system review of systems was obtained. Pertinent positives and/or negatives as in body of the history above, otherwise they are noncontributory. PHYSICAL EXAMINATION: VITAL SIGNS: At presentation, he was afebrile, temperature 98.3 degrees Fahrenheit, pulse of 113, respiratory rate 28, blood pressure 129/90, O2 sats were 96%, inspired oxygen concentration at that time was not recorded. When I stopped by to see him, O2 sats were 97% that was on 3 liters nasal cannula. GENERAL: He is an elderly looking middle-aged -[place] male. Normocephalic, atraumatic, talking to me in occasionally slightly interrupted sentences with mildly increased respiratory effort at rest. HEAD, EYES, EARS, NOSE AND THROAT: He is anicteric. No conjunctival erythema. Oropharynx was moist. Mallampati #2 oropharynx. NECK: He had gross jugular venous distention almost close to the angle of the jaw. No thyromegaly. Grossly, there were no palpable lymph nodes in the supraclavicular or submandibular lymph node chains. LUNGS: Auscultation of both lung mchugh significant for diminished bibasilar air entry, right greater than left, bibasilar inspiratory rales, right greater than left. No wheezing. HEART: Heart sounds 1 and 2 are heard. They were regular in rate and rhythm at the time of my evaluation without overt rubs or murmurs. ABDOMEN: Soft, full, bowel sounds are positive, nontender, no palpable hepatosplenomegaly. EXTREMITIES: Without overt digital clubbing or cyanosis. He had 2+ bipedal pitting edema all the way up to his knees. Pedal pulses were palpable, but weak. NEUROLOGIC: Pupils were equal, round, about 4 mm, reactive to light. Extraocular muscle movements were intact. He moves all 4 extremities spontaneously. SKIN: Poor turgor without overt cellulitis. He had a bandage to the left ankle region. Please see wound care notes for further details. PSYCHIATRIC: His mood was normal. His affect was appropriate. LABORATORY DATA: From my review were as follows: Admission white cell count 9500, hemoglobin 11.6, hematocrit 36.2, platelet count was 197. No manual differential was done. INR was within normal limits. Serum sodium was 142, potassium 3.8, chloride 103, bicarbonate 21, BUN was 19, creatinine 1.3, and glucose was 81. Total bilirubin was elevated at 1.8, alkaline phosphatase 212. Troponin was up at 0.044. BNP was elevated at 10,277. LDL cholesterol was 88. Today, BUN is 30, creatinine is 2.1. No microbiology studies. A chest x-ray was done at admission. Chest x-ray clearly shows a large right pleural effusion and AICD in the left upper anterior chest wall and gross cardiomegaly still obvious with hilar congestion. The left costophrenic angle is clean. An earlier chest x-ray from 07/23/2019 shows really a right pleural effusion just not as large as it is today, but it was moderate at least at that time. He had a thoracentesis done and the post-thoracentesis chest x-ray shows reduction in the fluid, but still persistence of some fluid in the pulmonary parenchyma and fluid in the minor fissure. The thoracentesis procedure note reports that 2.5 liters of fluid were taken out, yellow cloudy fluid. No labs were ordered. ASSESSMENT: 1. Acute hypoxemic respiratory failure. 2. Recurrent right pleural effusion, large. 3. Heart failure with a reduced ejection fraction and with an acute exacerbation. 4. Acute on chronic kidney injury. 5. Paroxysmal atrial fibrillation. 6. AICD malfunction. 7. Hypertension. 8. Diabetes. 9. Chronic obstructive pulmonary disease. PLAN: I should first of all mention that he has had a repeat thoracentesis in the last month, he has had this done about twice and he still has significant residual fluid in the lungs. His symptoms also seem to be recurring to suggest he has reaccumulated the fluid, I would have loved to really see a picture of the pulmonary parenchyma post-thoracentesis and to ensure that there is not another underlying process that we are missing. He by symptoms appears to have recurrence of the fluid, we did not send any studies at this time. The procedure had been done before we got involved. My plan will be to go as follows: I will repeat a chest x-ray in the morning. If there is significant fluid, I will order a pigtail catheter, chest tube and bring him back to the hospital room and connect that to continuous wall suction with the hope that we can completely drain the pleural space and then at that point get a CT scan. I will also be able to send fluid for further studies. On the face of things, it would seem like congestive heart failure is the reason for this effusion; however, this is a big time smoker and this is unilateral pleural effusion, which kind of argues against congestive heart failure as being the initiating factor. We will continue supplemental oxygen, wean to keep sats greater than or equal to about 90%. I will deploy CPAP therapy at bedtime. He was on that in [place], but states that since he came in he has not been able to get himself a CPAP machine. I will go with a CPAP of 10 empirically. This should also help cardiovascular hemodynamics. His AICD is being interrogated. He will be continued on full anticoagulation for his atrial fibrillation. We will continue diuretics as ordered. He will benefit from Nephrology evaluation in this gentleman with worsening creatinine that may be secondary to a cardiorenal syndrome or may be due to an element of intravascular volume depletion. His pedal edema is improving. I will blame it on congestive heart failure at this time, but I may well get bilateral lower extremity Dopplers to rule out a deep venous thrombosis as also a cause of this, especially if there is no improvement with just routine diuresis. He is appropriately on GI prophylaxis, especially being on full anticoagulation. We will complete empiric CAP pneumonia therapy with Levaquin, 5 days of therapy should be appropriate. Cardiology evaluation is ongoing. I will defer to them to help optimize cardiac medical management. Glycemic control will be via Accu-Cheks and sliding scale insulin for target blood glucose of 140-180 mg/dL while critically ill. Flu and pneumonia vaccination will be addressed per protocol. I will also be resuming his home COPD medications. I do not know just how bad his COPD is, but I do see that he was on prednisone at home. I am assuming that must be from a taper. We will review to see if we have any CT scans on him that may better allow me to evaluate for anatomical emphysema. If this has not been done, once we have drained the fluid, we will be getting a CT scan of the chest. Thank you very much for the consult, Dr. Cabrera. We will follow along. We will make further recommendations as the picture progresses/becomes clearer. At this time, he is critically ill and at risk of decompensation in the cardiopulmonary system including the risk of . His AICD is about to be interrogated. He says that he does not know if he has really been shocked, but his AICD has been heating up in his own words. So, we will allow them to interrogate that further. We will make further recommendations as the picture progresses/becomes clearer. [facility]# [id number] ARABELLA/BIMAL ESCALANTE
[2019-08-04] MEDS: FUROSEMIDE 40 MG/4 ML INJ IV SCH ×2 (06:17→18:27)
[2019-08-04] MEDS: oxyCODONE /ACETAMINOPHEN 5-325MG TAB PO PRN ×2 (06:42→18:48)
[2019-08-04] MEDS: oxyCODONE 5 MG TAB PO PRN ×2 (06:42→18:47)
[2019-08-04] MEDS: METOPROLOL TARTRATE 50 MG TAB PO SCH ×3 (08:00→20:29)
[2019-08-04] MEDS: METOPROLOL TARTRATE 25 MG TAB PO SCH ×3 (08:00→20:32)
[2019-08-04] MEDS: INSULIN LISPRO 100 UNIT/ML SUB-Q SCH ×4 (08:43→22:37)
[2019-08-04] MEDS: DOCUSATE SODIUM 100 MG CAP PO SCH ×2 (10:00→22:36)
[2019-08-04] MEDS: APIXABAN 5 MG TAB PO SCH ×2 (10:00→22:38)
--- NOTE | 2019-08-04 11:48 | Progress Note ---
<JEANA HOLM - Last Filed: 08/04/19 11:45> Assessment and Plan Recurrent Pleural effusion s/p thoracentesis Chronic systolic heart failure Chronic renal failure LLE ulcer Chronic atrial fibrillation on Eliquis for oral anticoagulation as an outpatient rate controlled with metoprolol and digoxin Hx of Nonischemic cardiomyopathy EF 15-20% by echo 11/2018 Presence of the ICD an interrogation this admission reports no ventricular arrhythmias or ICD discharge; a normal functioning device. Essential hypertension Type 2 diabetes mellitus Chronic obstructive pulmonary disease Recommendations: Fluid/sodium restriction. Continue medical therapy for chronic systolic heart failure. Continue rate control strategy for his atrial fibrillation. We will follow intermittently. Subjective Date of service: 08/04/19 Interval history: Patient reports his breathing is better. Objective Vital Signs Temp Pulse Pulse Resp BP Pulse Ox 08/04/19 10:00 64 20 94 08/04/19 08:14 94.0 F L 63 18 115/89 94 08/04/19 04:26 97 08/04/19 04:24 79 08/04/19 04:03 97.7 F 39 L 18 109/78 89 08/03/19 23:24 97.8 F 52 L 18 124/70 89 08/03/19 23:23 18 08/03/19 22:24 69 108/72 08/03/19 22:23 18 08/03/19 22:15 69 18 94 08/03/19 22:00 98 08/03/19 20:35 97.7 F 69 16 108/77 92 08/03/19 20:01 85 08/03/19 16:30 119/85 100 08/03/19 16:20 119/85 95 08/03/19 16:10 73 11 L 119/85 98 08/03/19 16:00 74 18 118/91 97 08/03/19 15:50 91 H 27 H 118/91 97 08/03/19 15:40 79 17 118/91 97 08/03/19 15:38 97.6 F 08/03/19 15:30 118/91 98 08/03/19 15:20 75 12 118/91 97 08/03/19 15:10 118/91 98 08/03/19 15:00 86 118/91 98 08/03/19 14:50 110/83 97 08/03/19 14:40 110/83 99 08/03/19 14:30 71 16 110/83 100 08/03/19 14:20 80 12 110/83 84 08/03/19 14:10 83 21 110/83 86 08/03/19 14:00 78 16 110/83 97 08/03/19 13:50 76 15 126/96 99 08/03/19 13:40 77 12 126/96 99 08/03/19 13:30 85 16 126/96 95 08/03/19 13:20 79 16 126/96 89 08/03/19 13:10 77 12 126/96 94 08/03/19 13:00 82 25 H 126/96 90 08/03/19 12:50 82 20 113/56 84 08/03/19 12:40 87 15 113/56 100 08/03/19 12:30 84 18 113/56 87 08/03/19 12:20 81 19 113/56 64 L 08/03/19 12:10 74 13 113/56 88 08/03/19 12:00 97.6 F 95 H 16 114/81 90 08/03/19 11:50 77 13 114/81 96 - Physical Examination General: No Apparent Distress HEENT: Positive: PERRL Neck: Positive: trachea midline Cardiac: Positive: irregularly irregular Lungs: Positive: Decreased Breath Sounds Neuro: Positive: Grossly Intact Extremities: Present: edema, Other (LLE ulcer) - Labs and Meds Cardiac Enzymes 08/03/19 Range/Units 17:01 Lactate Dehydrogenase 199 H (91-180) units/L <POLLY ESPINOZA - Last Filed: 08/04/19 15:23> Assessment and Plan As seen and evaluated the patient and agree with the assessment and plan. Patient has a history of chronic atrial fibrillation anticoagulated with Eliquis, and and nonischemic cardiomyopathy with ejection fraction of 15-20% status post ICD placement. Patient is presenting with shortness of breath due to recurrent pleural effusion. The patient has had a thoracentesis. The patient's plan for Pleurx catheter. At this time recommend continue goal- directed medical therapy for treatment of nonischemic cardiomyopathy and continued rate control strategy and anticoagulation for treatment of permanent atrial fibrillation. Objective Vital Signs Temp Pulse Pulse Resp BP Pulse Ox 08/04/19 11:21 97.3 F L 72 20 123/96 96 08/04/19 10:00 64 20 94 08/04/19 08:14 94.0 F L 63 18 115/89 94 08/04/19 04:26 97 08/04/19 04:24 79 08/04/19 04:03 97.7 F 39 L 18 109/78 89 08/03/19 23:24 97.8 F 52 L 18 124/70 89 08/03/19 23:23 18 08/03/19 22:24 69 108/72 08/03/19 22:23 18 08/03/19 22:15 69 18 94 08/03/19 22:00 98 08/03/19 20:35 97.7 F 69 16 108/77 92 08/03/19 20:01 85 08/03/19 16:30 119/85 100 08/03/19 16:20 119/85 95 08/03/19 16:10 73 11 L 119/85 98 08/03/19 16:00 74 18 118/91 97 08/03/19 15:50 91 H 27 H 118/91 97 08/03/19 15:40 79 17 118/91 97 08/03/19 15:38 97.6 F 08/03/19 15:30 118/91 98 - Labs and Meds Cardiac Enzymes 08/03/19 Range/Units 17:01 Lactate Dehydrogenase 199 H (91-180) units/L
--- NOTE | 2019-08-04 13:50 | Progress Note ---
Assessment and Plan Patient alert, awake. Presently on room air. Patient suppose marc on 3 litres O2. O2 saturation 98% on 3 litres O2. No complaint of chest pain, shortness of breath or cough at this time. He is complaining of swelling of the legs. Patient has a right thoracentesis and interventional radiology left a note that patient did not have a significant effusion for a chest tube placement - Patient Problems (1) Acute and chronic respiratory failure Current Visit: No Status: Acute Qualifiers: Respiratory failure complication: hypoxia Qualified Code(s): J96.21 - Acute and chronic respiratory failure with hypoxia Plan to address problem: 1. O2 3 liters via nasal cannula. 2. albuterol and atrovent aerosol treatments q 6 hours 3. continue prednisone 4. continue levoquin 5. continue apixaban 6. Continue famotidine (2) CHF exacerbation Current Visit: Yes Status: Acute Plan to address problem: Pt is on IV lasix and management as per cardiology (3) Chest pain Current Visit: Yes Status: Acute Plan to address problem: Management as per cardiology (4) Chronic atrial fibrillation Current Visit: Yes Status: Acute Plan to address problem: Pt is on apixaban. Management as per cardiology. (5) Acute kidney injury superimposed on chronic kidney disease Current Visit: No Status: Acute Plan to address problem: management as per nephrology (6) COPD (chronic obstructive pulmonary disease) Current Visit: No Status: Acute Qualifiers: Chronic bronchitis type: mixed simple and mucopurulent Plan to address problem: 1. O2 3 liters via nasal cannula. 2. albuterol and atrovent aerosol treatments q 6 hours 3. continue prednisone 4. continue levoquin 5. continue apixaban 6. Continue famotidine 7. PFTs an out patient (7) Recurrent right pleural effusion Current Visit: No Status: Acute Plan to address problem: Pt undergone thoracentesis and most of the fluid was taken out. Interventional radiology said there is not enough pleural fluid for chest tube placement. Subjective Date of service: 08/04/19 Interval history: Patient alert, awake. Presently on room air. Patient suppose marc on 3 litres O2. O2 saturation 98% on 3 litres O2. No complaint of chest pain, shortness of breath or cough at this time. He is complaining of swelling of the legs. Patient has a right thoracentesis and interventional radiology left a note that patient did not have a significant effusion for a chest tube placement. Objective Vital Signs - 12hr 08/04/19 08/04/19 08/04/19 04:03 04:24 04:26 Temperature 97.7 F Pulse Rate 39 L 79 Pulse Rate [ Apical] Respiratory 18 Rate Blood Pressure 109/78 O2 Sat by Pulse 89 97 Oximetry 08/04/19 08/04/19 08/04/19 08:14 10:00 11:21 Temperature 94.0 F L 97.3 F L Pulse Rate 63 72 Pulse Rate [ 64 Apical] Respiratory 18 20 20 Rate Blood Pressure 115/89 123/96 O2 Sat by Pulse 94 94 96 Oximetry Constitutional: no acute distress, alert, appears uncomfortable Eyes: non-icteric Ascultation: Right: diminished breath sounds (base) Cardiovascular: irregular rhythm Gastrointestinal: normoactive bowel sounds, soft, non-tender Integumentary: normal, other (Wound on right lower leg.) Extremities: no cyanosis, edema (bilateral) Neurologic: non-focal exam, pupils equal and round, CN II-XII normal Psychiatric: anxious CBC and BMP: 08/03/19 04:57 08/03/19 04:57 ABG, PT/INR, D-dimer: PT/INR, D-dimer PT 13.9 Sec. (12.2-14.9) 08/01/19 18:49 INR 1.08 (0.87-1.13) 08/01/19 18:49 Abnormal lab findings: Abnormal Labs 08/01/19 08/01/19 08/01/19 18:49 18:49 18:49 Hgb 11.6 L Hct RDW 19.3 H Lymph % (Auto) 10.0 L Gar[place] % (Auto) 9.5 H Lymph # 1.0 L [place] # 0.9 H Seg Neutrophils % 79.2 H Seg Neutrophils # Carbon Dioxide 21 L BUN Creatinine Glucose POC Glucose Calcium Total Bilirubin 1.80 H Direct Bilirubin 1.0 H Alkaline Phosphatase 212 H Lactate Dehydrogenase Troponin T 0.044 H NT-Pro-B Natriuret Pep [id number] H Albumin 3.4 L 08/01/19 08/02/19 08/02/19 21:07 00:28 10:14 Hgb Hct RDW Lymph % (Auto) Gar[place] % (Auto) Lymph # [place] # Seg Neutrophils % Seg Neutrophils # Carbon Dioxide BUN Creatinine Glucose POC Glucose 115 H Calcium Total Bilirubin Direct Bilirubin Alkaline Phosphatase Lactate Dehydrogenase Troponin T 0.049 H 0.054 H NT-Pro-B Natriuret Pep Albumin 08/02/19 08/02/19 08/02/19 11:18 16:04 21:51 Hgb Hct RDW Lymph % (Auto) Gar[place] % (Auto) Lymph # [place] # Seg Neutrophils % Seg Neutrophils # Carbon Dioxide BUN Creatinine Glucose POC Glucose 144 H 126 H 130 H Calcium Total Bilirubin Direct Bilirubin Alkaline Phosphatase Lactate Dehydrogenase Troponin T NT-Pro-B Natriuret Pep Albumin 08/03/19 08/03/19 08/03/19 04:57 04:57 16:36 Hgb 11.0 L Hct 34.3 L RDW 19.4 H Lymph % (Auto) 9.5 L Gar[place] % (Auto) Lymph # 0.9 L Gar[place] # Seg Neutrophils % 83.0 H Seg Neutrophils # 8.2 H Carbon Dioxide BUN 30 H Creatinine 2.1 H D Glucose 140 H POC Glucose 142 H Calcium 8.1 L Total Bilirubin Direct Bilirubin Alkaline Phosphatase 195 H Lactate Dehydrogenase Troponin T NT-Pro-B Natriuret Pep Albumin 2.9 L 08/03/19 08/03/19 08/04/19 17:01 21:12 11:31 Hgb Hct RDW Lymph % (Auto) Gar[place] % (Auto) Lymph # [place] # Seg Neutrophils % Seg Neutrophils # Carbon Dioxide BUN Creatinine Glucose POC Glucose 158 H 59 L Calcium Total Bilirubin Direct Bilirubin Alkaline Phosphatase Lactate Dehydrogenase 199 H Troponin T NT-Pro-B Natriuret Pep Albumin Chest x-ray: report reviewed (Reported 75% decrease in right pleural effusion. No pneumothorax.), image reviewed
--- NOTE | 2019-08-04 16:00 | Event Note ---
Date: 08/04/19 Patient noted to have pleural effusion that is been 75% evacuated. Will obtain a chest x-ray tomorrow to determine if the pleural fluid is re-accumulating. The patient will need a moderate amount of pleural effusion prior to placement of the chest tube to allow safe placement.
[2019-08-04] MEDS: SODIUM BICARBONATE 650 MG TAB PO SCH ×2 (18:27→22:36)
[2019-08-04] MEDS: ASPIRIN 81 MG TAB CHEW PO SCH (18:29)
[2019-08-04] MEDS: FAMOTIDINE 20 MG TAB PO SCH ×2 (18:29→22:36)
[2019-08-04] MEDS: DIGOXIN 0.25 MG TAB PO SCH (18:30)
--- NOTE | 2019-08-04 18:34 | Progress Note ---
Assessment and Plan Assessment and plan: Recurrent Pleural effusion -s/p thoracentesis 08/02/19. Chest tube per Pulm Chronic systolic heart failure. Fluid/sodium restriction. Continue medical therapy for chronic systolic heart failure. Cardiology consulted Acute on Chronic renal failure. Acute kidney injury superimposed on chronic kidney disease creatinine is improved but apparent baseline Continue diuretics per Renal. LLE ulcer. Wound care Chronic atrial fibrillation Cont. on Eliquis for oral anticoagulation as an outpatient rate controlled with metoprolol and digoxin Hx of Nonischemic cardiomyopathy EF 15-20% by echo 11/2018 Presence of the ICD recent interrogation revealed a normal functioning device hypertension. Cont current regimen Type 2 diabetes mellitus. Accuchecks and SSRI Chronic obstructive pulmonary disease. Stable History Interval history: No new issues overnight Hospitalist Physical - Constitutional Vitals: Temp Pulse Resp BP Pulse Ox 97.8 F 65 20 117/73 92 08/04/19 16:58 08/04/19 16:58 08/04/19 16:58 08/04/19 16:58 08/04/19 16:58 General appearance: Present: no acute distress - EENT Eyes: Present: PERRL, EOM intact ENT: hearing intact, clear oral mucosa, dentition normal - Neck Neck: Present: supple, normal ROM - Respiratory Respiratory effort: normal Respiratory: bilateral: CTA - Cardiovascular Rhythm: regular Heart Sounds: Present: S1 & S2. Absent: gallop, rub - Extremities Extremities: no ischemia, No edema, Full ROM - Abdominal General gastrointestinal: soft, non-tender, non-distended, normal bowel sounds - Integumentary Integumentary: Present: clear, warm, dry - Neurologic Neurologic: CNII-XII intact, moves all extremities Results - Labs CBC & Chem 7: 08/03/19 04:57 08/03/19 04:57 Labs: Laboratory Last Values WBC 9.9 K/mm3 (4.5-11.0) 08/03/19 04:57 RBC 3.76 M/mm3 (3.65-5.03) 08/03/19 04:57 Hgb 11.0 gm/dl (11.8-15.2) L 08/03/19 04:57 Hct 34.3 % (35.5-45.6) L 08/03/19 04:57 MCV 91 fl (84-94) 08/03/19 04:57 MCH 29 pg (28-32) 08/03/19 04:57 MCHC 32 % (32-34) 08/03/19 04:57 RDW 19.4 % (13.2-15.2) H 08/03/19 04:57 Plt Count 202 K/mm3 (140-440) 08/03/19 04:57 Lymph % (Auto) 9.5 % (13.4-35.0) L 08/03/19 04:57 [place] % (Auto) 7.0 % (0.0-7.3) 08/03/19 04:57 Eos % (Auto) 0.0 % (0.0-4.3) 08/03/19 04:57 Baso % (Auto) 0.5 % (0.0-1.8) 08/03/19 04:57 Lymph # 0.9 K/mm3 (1.2-5.4) L 08/03/19 04:57 [place] # 0.7 K/mm3 (0.0-0.8) 08/03/19 04:57 Eos # 0.0 K/mm3 (0.0-0.4) 08/03/19 04:57 Baso # 0.1 K/mm3 (0.0-0.1) 08/03/19 04:57 Seg Neutrophils % 83.0 % (40.0-70.0) H 08/03/19 04:57 Seg Neutrophils # 8.2 K/mm3 (1.8-7.7) H 08/03/19 04:57 PT 13.9 Sec. (12.2-14.9) 08/01/19 18:49 INR 1.08 (0.87-1.13) 08/01/19 18:49 APTT 30.8 Sec. (24.2-36.6) 08/01/19 18:49 Sodium 137 mmol/L (137-145) 08/03/19 04:57 Potassium 5.0 mmol/L (3.6-5.0) D 08/03/19 04:57 Chloride 101.5 mmol/L (98-107) 08/03/19 04:57 Carbon Dioxide 25 mmol/L (22-30) 08/03/19 04:57 Anion Gap 16 mmol/L 08/03/19 04:57 BUN 30 mg/dL (9-20) H 08/03/19 04:57 Creatinine 2.1 mg/dL (0.8-1.5) H D 08/03/19 04:57 Estimated GFR 40 ml/min 08/03/19 04:57 BUN/Creatinine Ratio 14 % 08/03/19 04:57 Glucose 140 mg/dL (75-100) H 08/03/19 04:57 POC Glucose 174 (70-105) H 08/04/19 16:07 Hemoglobin A1c 5.9 % (4-6) 08/02/19 07:49 Calcium 8.1 mg/dL (8.4-10.2) L 08/03/19 04:57 Total Bilirubin 1.20 mg/dL (0.1-1.2) 08/03/19 04:57 Direct Bilirubin 1.0 mg/dL (0-0.2) H 08/01/19 18:49 Indirect Bilirubin 0.8 mg/dL 08/01/19 18:49 AST 21 units/L (5-40) 08/03/19 04:57 ALT 20 units/L (7-56) 08/03/19 04:57 Alkaline Phosphatase 195 units/L (35-129) H 08/03/19 04:57 Lactate Dehydrogenase 199 units/L (91-180) H 08/03/19 17:01 Troponin T 0.054 ng/mL (0.00-0.029) H 08/02/19 00:28 NT-Pro-B Natriuret Pep 11302 pg/mL (0-900) H 08/01/19 18:49 Total Protein 6.6 g/dL (6.3-8.2) 08/03/19 04:57 Albumin 2.9 g/dL (3.9-5) L 08/03/19 04:57 Albumin/Globulin Ratio 0.8 % 08/03/19 04:57 Triglycerides 69 mg/dL (2-149) 08/01/19 18:49 Cholesterol 131 mg/dL (50-199) 08/01/19 18:49 LDL Cholesterol Direct 88 mg/dL (50-130) 08/01/19 18:49 HDL Cholesterol 41 mg/dL (40-59) 08/01/19 18:49 Cholesterol/HDL Ratio 3.19 % 08/01/19 18:49 Active Medications - Current Medications Current Medications: Generic Name Dose Route Start Last Admin Trade Name Freq PRN Reason Stop Dose Admin Acetaminophen 650 mg 08/02/19 04:18 Tylenol PO Q4H PRN Pain MILD(1-3)/Fever >100.5/TRUJILLO Apixaban 5 mg 08/02/19 10:00 08/03/19 22:24 Eliquis PO 5 mg BID SOUMYA Administration Protocol Aspirin 81 mg 08/02/19 10:00 08/03/19 09:10 Baby Aspirin PO 81 mg QDAY SOUMYA Administration Atorvastatin Calcium 40 mg 08/02/19 22:00 08/03/19 22:23 Lipitor PO 40 mg QHS SOUMYA Administration Digoxin 0.25 mg 08/04/19 17:00 Lanoxin PO Q48H [facility] Docusate Sodium 100 mg 08/02/19 10:00 08/04/19 10:00 Colace PO Not Given BID [facility] Famotidine 20 mg 08/02/19 10:00 08/03/19 22:22 Pepcid PO 20 mg BID SOUMYA Administration Furosemide 40 mg 08/02/19 06:00 08/04/19 06:17 Lasix IV 40 mg 0600,1800 SOUMYA Administration Hydromorphone HCl 0.5 mg 08/02/19 01:32 08/02/19 05:52 Dilaudid IV 0.5 mg Q4H PRN Administration Pain , Severe (7-10) Levofloxacin/Dextrose 750 mg in 150 mls @ 100 mls/hr 08/02/19 10:00 08/03/19 09:15 Levaquin 750mg/150ml IV 100 mls/hr Q24HR SOUMYA Administration Protocol Insulin Human Lispro 0 unit 08/02/19 07:30 08/04/19 11:30 Humalog SUB-Q Not Given ACHS [facility] Protocol Metoclopramide HCl 10 mg 08/02/19 04:12 Reglan IV Q6H PRN Nausea And Vomiting Metoprolol Tartrate 50 mg 08/02/19 08:00 08/04/19 08:00 Metoprolol PO Not Given TID [facility] Metoprolol Tartrate 25 mg 08/02/19 08:00 08/04/19 08:00 Metoprolol PO Not Given TID [facility] Nicotine 14 mg 08/02/19 10:00 08/03/19 09:14 Habitrol TD Not Given QDAY SOUMYA Ondansetron HCl 4 mg 08/02/19 04:12 Zofran IV Q8H PRN Nausea And Vomiting Oxycodone HCl 5 mg 08/02/19 04:18 08/04/19 06:42 Roxicodone PO 5 mg Q6H PRN Administration Pain, (7-10) Oxycodone/Acetaminophen 1 tab 08/02/19 04:09 08/04/19 06:42 Percocet 5/325 PO 1 tab Q6H PRN Administration Pain , Severe (7-10) Prednisone 20 mg 08/02/19 10:00 08/03/19 09:10 Deltasone PO 20 mg QDAY SOUMYA Administration Sodium Bicarbonate 1,300 mg 08/02/19 10:00 08/03/19 22:22 Sodium Bicarbonate PO 1,300 mg BID SOUMYA Administration Sodium Chloride 10 ml 08/02/19 04:12 08/04/19 06:17 Sodium Chloride Flush Syringe 10 Ml IV 10 ml PRN PRN Administration LINE FLUSH Sodium Chloride 10 ml 08/02/19 10:00 08/03/19 22:25 Sodium Chloride Flush Syringe 10 Ml IV 10 ml BID SOUMYA Administration
[2019-08-04] MEDS: predniSONE 20 MG TAB PO SCH (18:48)
[2019-08-04] MEDS: NICOTINE 14 MG/24 HR PATCH TD SCH (18:48)
[2019-08-05 05:55] LABS: Hemoglobin 10.9 gm/dl (11.8-15.2); Mean Corpuscular HGB Conc 32 % (32-34); Mean Corpuscular Volume 90 fl (84-94); Platelet Count 186 K/mm3 (140-440); Red Blood Count 3.76 M/mm3 (3.65-5.03); Red Cell Distribution Width 19.4 % (13.2-15.2)
[2019-08-05 06:39] LABS: Basophils % (Manual) 0 % (0.0-1.8); Eosinophils % (Manual) 0 % (0.0-4.3); Total Cells Counted 100
[2019-08-05] MEDS: FUROSEMIDE 40 MG/4 ML INJ IV SCH ×2 (06:39→18:05)
[2019-08-05 06:40] LABS: Burr Cells Rare; Stomatocytes Rare
[2019-08-05 06:41] LABS: Platelet Estimate Consistent w Auto
[2019-08-05 06:46] LABS: Calcium 8.4 mg/dL (8.4-10.2)
[2019-08-05] MEDS: oxyCODONE /ACETAMINOPHEN 5-325MG TAB PO PRN ×2 (06:46→18:02)
[2019-08-05] MEDS: oxyCODONE 5 MG TAB PO PRN (06:47)
--- NOTE | 2019-08-05 08:25 | XRay Report ---
CHEST 1 VIEW INDICATION: pleural effusion. COMPARISON: 08/02/2019 FINDINGS: Support devices: A single lead pacing device. Heart: Large. Pulmonary vasculature: Normal. Lungs/Pleura: Increased opacification in the right lung base with widening of the right pleural space , silhouetting of the right heart border and the right hemidiaphragm. The left lung is clear. Additional findings: None. IMPRESSION: 1. Increased right pleural effusion and right basal airspace disease and/or atelectasis. Signer Name: Monty Hess MD Signed: 08/05/2019 8:21 AM Workstation Name: [id number]
[2019-08-05] MEDS: predniSONE 20 MG TAB PO SCH (09:57)
[2019-08-05] MEDS: METOPROLOL TARTRATE 25 MG TAB PO SCH ×3 (09:58→22:56)
[2019-08-05] MEDS: DOCUSATE SODIUM 100 MG CAP PO SCH ×2 (09:58→22:55)
[2019-08-05] MEDS: ASPIRIN 81 MG TAB CHEW PO SCH (09:58)
[2019-08-05] MEDS: FAMOTIDINE 20 MG TAB PO SCH ×2 (09:58→22:54)
[2019-08-05] MEDS: SODIUM BICARBONATE 650 MG TAB PO SCH ×2 (09:58→22:54)
[2019-08-05] MEDS: INSULIN LISPRO 100 UNIT/ML SUB-Q SCH ×3 (10:05→19:23)
[2019-08-05] MEDS: NICOTINE 14 MG/24 HR PATCH TD SCH (10:06)
[2019-08-05] MEDS: APIXABAN 5 MG TAB PO SCH ×2 (10:06→22:54)
[2019-08-05] MEDS ORDERED: HEPARIN/NS 5000 UNIT/500ML 0 ML IR ONE (10:18)
[2019-08-05] MEDS ORDERED: SODIUM CHLORIDE 0.9% 250ML 250 ML ONE (10:18)
--- NOTE | 2019-08-05 10:37 | Progress Note ---
Assessment and Plan Acute hypoxic respiratory failure Recurrent Pleural effusion -s/p thoracentesis 08/02/19 Tobacco use disorder with nicotine dependence COPD , no documented PFTs/FEV1 Chronic systolic heart failure Acute on Chronic renal failure. LLE ulcer Chronic atrial fibrillation Hx of Nonischemic cardiomyopathy s/p ICD-EF 15-20% by echo 11/2018 Hypertension Type 2 diabetes mellitus -Wean supplemental oxygen to keep O2 sats>90% -Chest tube to -20cm water seal -Optimize heart failure measures while monitoring hemodynamics and renal fu nction -Bronchodilators, monitor for tachycardia -Anticoagulation -Avoid nephrotoxins, renally dose all medications -Quick steroid taper in view of heart failure -ABG -Follow up CXr in 48 hours -Mobility to prevent pressure ulcers -PT/OT/Wound care -Accuchecks with glycemic control. Keep glucose 140-180mg/dL to optimize wound healing -Smoking cessation counseling done at the bedside fro >7 minutes. -Will need home oxygen evaluation on discharge -Pulmonary out patient follow up for PFTs and optimization of respiratory status Subjective Date of service: 08/05/19 Interval history: Follow up for Dyspnea, acute hypoxic respiratory failure: Recurrent right pleural effusion: Tobacco use with nicotine dependence Seen and examined. Vitals, labs, medications, chart and imaging reviewed. s/p right chest tube placement. States he is feeling better, denies any chest pain- had to have pleuravac changed per RN- drained 2Liters of straw colored fluid Objective Vital Signs - 12hr 08/04/19 08/05/19 08/05/19 23:19 02:54 04:18 Temperature 98.2 F 97.7 F Pulse Rate 52 L 114 H 85 Respiratory 16 22 19 Rate Blood Pressure 105/77 125/81 O2 Sat by Pulse 92 100 99 Oximetry 08/05/19 08/05/19 08:20 09:58 Temperature 97.9 F Pulse Rate 78 90 Respiratory 18 Rate Blood Pressure 126/92 136/92 O2 Sat by Pulse 90 Oximetry Constitutional: no acute distress, alert, appears uncomfortable Eyes: non-icteric ENT: oropharynx moist Neck: supple, no lymphadenopathy, no JVD Effort: mildly labored Ascultation: Right: diminished breath sounds (base) Cardiovascular: irregular rhythm Gastrointestinal: normoactive bowel sounds, soft, non-tender Integumentary: normal, other (Wound on right lower leg.) Extremities: no cyanosis, edema (bilateral) Neurologic: normal mental status, non-focal exam, pupils equal and round, CN II- XII normal, motor strength normal and Psychiatric: anxious CBC and BMP: 08/09/19 11:44 08/09/19 11:44 ABG, PT/INR, D-dimer: PT/INR, D-dimer PT 13.9 Sec. (12.2-14.9) 08/01/19 18:49 INR 1.08 (0.87-1.13) 08/01/19 18:49 Abnormal lab findings: Abnormal Labs 08/01/19 08/01/19 08/01/19 18:49 18:49 18:49 Hgb 11.6 L Hct RDW 19.3 H Lymph % (Auto) 10.0 L [place] % (Auto) 9.5 H Lymph # 1.0 L [place] # 0.9 H Seg Neutrophils % 79.2 H Seg Neuts % (Manual) Lymphocytes % (Manual) Seg Neutrophils # Seg Neutrophils # Man Lymphocytes # (Manual) Sodium Carbon Dioxide 21 L BUN Creatinine Glucose POC Glucose Calcium Total Bilirubin 1.80 H Direct Bilirubin 1.0 H Alkaline Phosphatase 212 H Lactate Dehydrogenase Troponin T 0.044 H NT-Pro-B Natriuret Pep 83276 H Albumin 3.4 L 08/01/19 08/02/19 08/02/19 21:07 00:28 10:14 Hgb Hct RDW Lymph % (Auto) [place] % (Auto) Lymph # [place] # Seg Neutrophils % Seg Neuts % (Manual) Lymphocytes % (Manual) Seg Neutrophils # Seg Neutrophils # Man Lymphocytes # (Manual) Sodium Carbon Dioxide BUN Creatinine Glucose POC Glucose 115 H Calcium Total Bilirubin Direct Bilirubin Alkaline Phosphatase Lactate Dehydrogenase Troponin T 0.049 H 0.054 H NT-Pro-B Natriuret Pep Albumin 08/02/19 08/02/19 08/02/19 11:18 16:04 21:51 Hgb Hct RDW Lymph % (Auto) [place] % (Auto) Lymph # [place] # Seg Neutrophils % Seg Neuts % (Manual) Lymphocytes % (Manual) Seg Neutrophils # Seg Neutrophils # Man Lymphocytes # (Manual) Sodium Carbon Dioxide BUN Creatinine Glucose POC Glucose 144 H 126 H 130 H Calcium Total Bilirubin Direct Bilirubin Alkaline Phosphatase Lactate Dehydrogenase Troponin T NT-Pro-B Natriuret Pep Albumin 08/03/19 08/03/19 08/03/19 04:57 04:57 16:36 Hgb 11.0 L Hct 34.3 L RDW 19.4 H Lymph % (Auto) 9.5 L [place] % (Auto) Lymph # 0.9 L [place] # Seg Neutrophils % 83.0 H Seg Neuts % (Manual) Lymphocytes % (Manual) Seg Neutrophils # 8.2 H Seg Neutrophils # Man Lymphocytes # (Manual) Sodium Carbon Dioxide BUN 30 H Creatinine 2.1 H D Glucose 140 H POC Glucose 142 H Calcium 8.1 L Total Bilirubin Direct Bilirubin Alkaline Phosphatase 195 H Lactate Dehydrogenase Troponin T NT-Pro-B Natriuret Pep Albumin 2.9 L 08/03/19 08/03/19 08/04/19 17:01 21:12 11:31 Hgb Hct RDW Lymph % (Auto) [place] % (Auto) Lymph # [place] # Seg Neutrophils % Seg Neuts % (Manual) Lymphocytes % (Manual) Seg Neutrophils # Seg Neutrophils # Man Lymphocytes # (Manual) Sodium Carbon Dioxide BUN Creatinine Glucose POC Glucose 158 H 59 L Calcium Total Bilirubin Direct Bilirubin Alkaline Phosphatase Lactate Dehydrogenase 199 H Troponin T NT-Pro-B Natriuret Pep Albumin 08/04/19 08/04/19 08/05/19 16:07 21:05 05:16 Hgb 10.9 L Hct 34.0 L RDW 19.4 H Lymph % (Auto) [place] % (Auto) Lymph # [place] # Seg Neutrophils % Seg Neuts % (Manual) 89.0 H Lymphocytes % (Manual) 5.0 L Seg Neutrophils # Seg Neutrophils # Man 8.3 H Lymphocytes # (Manual) 0.5 L Sodium Carbon Dioxide BUN Creatinine Glucose POC Glucose 174 H 118 H Calcium Total Bilirubin Direct Bilirubin Alkaline Phosphatase Lactate Dehydrogenase Troponin T NT-Pro-B Natriuret Pep Albumin 08/05/19 05:16 Hgb Hct RDW Lymph % (Auto) [place] % (Auto) Lymph # [place] # Seg Neutrophils % Seg Neuts % (Manual) Lymphocytes % (Manual) Seg Neutrophils # Seg Neutrophils # Man Lymphocytes # (Manual) Sodium 136 L Carbon Dioxide BUN 38 H Creatinine 1.9 H Glucose 160 H POC Glucose Calcium Total Bilirubin Direct Bilirubin Alkaline Phosphatase Lactate Dehydrogenase Troponin T NT-Pro-B Natriuret Pep Albumin Chest x-ray: image reviewed
[2019-08-05] MEDS ORDERED: SODIUM CHLORIDE IRRI 500 ML 500 ML IR ONE (10:49)
[2019-08-05] MEDS: MIDAZOLAM 2 MG/2 ML INJ ONE ×2 (10:54→10:59)
[2019-08-05] MEDS: LIDOCAINE 1%/EPINEPHRINE 1:100,000 VIAL (20 ML) INFILTRATI ONE ×2 (10:54→11:00)
[2019-08-05] MEDS: fentaNYL 100 MCG/2 ML INJ ONE ×2 (10:54→10:59)
--- NOTE | 2019-08-05 11:39 | Operative Report ---
Operative Report Operative Report: Exam: Ultrasound and fluoroscopic guided placement of right chest tube Clinical indication: Patient with CHF and persistent right pleural effusion despite thoracentesis Date: 08/05/2019 Procedure: Following an explanation of the risks, benefits and alternatives; written informed consent was obtained. The patient was brought to the angiographic suite and placed in supine position on the examination table. Initial ultrasound evaluation of the patient's right chest demonstrated a moderate right pleural effusion. The patient's right chest and flank were prepped and draped in the usual sterile fashion. 1% lidocaine was used for anesthesia. Under ultrasound guidance, a 15 cm 18-gauge trocar needle was advanced into the pleural fluid. The trocar was removed and there was prompt return of clear yellow serous fluid. A 0.035 guidewire was then advanced to the lung apex under fluoroscopy. The needle was removed. Following serial dilation over the guidewire under fluoroscopy, a 10 [place] pigtail drainage catheter was advanced over the guidewire under fluoroscopy. There is prompt return of clear yellow serous fluid. The catheter was securely fastened to the skin surface using a pursestring 0 silk suture and a state takes device. The catheter was then placed to Pleur-evac drainage. The patient tolerated the procedure well. There were no immediate post procedure complications. Conscious sedation was performed under the guidance or radiologic nursing. Continuous cardiopulmonary monitoring was utilized. Impression: Ultrasound and fluoroscopic guided placement of a 10 [place] right pigtail chest tube with prompt return of clear yellow serous fluid.
--- NOTE | 2019-08-05 12:48 | XRay Report ---
CHEST 1 VIEW INDICATION: right chest tube placement. COMPARISON: 08/05/2019 0 7:48 AM FINDINGS: Support devices: A right pigtail catheter is identified in the lower right portion of the image at th e level of the 10th posterior rib. A single lead pacing device is unchanged in position. Heart: Stable cardiomegaly. Lungs/Pleura: Persistent opacification of the right lung base. No pneumothorax. Additional findings: None. IMPRESSION: 1. Right pigtail catheter at the level of the 10th posterior rib. 2. Persistent right basal opacification with widening of the right pleural space. Signer Name: Monty Hess MD Signed: 08/05/2019 12:44 PM Workstation Name: [id number]
[2019-08-05] MEDS: METOPROLOL TARTRATE 50 MG TAB PO SCH ×3 (16:26→22:55)
--- NOTE | 2019-08-05 17:16 | Progress Note ---
Assessment and Plan Assessment and plan: Recurrent Pleural effusion -s/p thoracentesis 08/02/19. Chest tube per Pulm Chronic systolic heart failure. Fluid/sodium restriction. Continue medical therapy for chronic systolic heart failure. Cardiology consulted Acute on Chronic renal failure. Consult Nephrology for further eval LLE ulcer. Wound care Chronic atrial fibrillation Cont. on Eliquis for oral anticoagulation as an outpatient rate controlled with metoprolol and digoxin Hx of Nonischemic cardiomyopathy EF 15-20% by echo 11/2018 Presence of the ICD recent interrogation revealed a normal functioning device hypertension. Cont current regimen Type 2 diabetes mellitus. Accuchecks and SSRI Chronic obstructive pulmonary disease. Stable History Interval history: No new issues overnight Hospitalist Physical - Constitutional Vitals: Temp Pulse Resp BP Pulse Ox 98.4 F 75 18 106/73 98 08/05/19 12:15 08/05/19 16:26 08/05/19 12:15 08/05/19 16:26 08/05/19 12:15 General appearance: Present: no acute distress - EENT Eyes: Present: PERRL, EOM intact ENT: hearing intact, clear oral mucosa, dentition normal - Neck Neck: Present: supple, normal ROM - Respiratory Respiratory effort: normal Respiratory: bilateral: CTA - Cardiovascular Rhythm: regular Heart Sounds: Present: S1 & S2. Absent: gallop, rub - Extremities Extremities: no ischemia, No edema, Full ROM - Abdominal General gastrointestinal: soft, non-tender, non-distended, normal bowel sounds - Integumentary Integumentary: Present: clear, warm, dry - Neurologic Neurologic: CNII-XII intact, moves all extremities Results - Labs CBC & Chem 7: 08/05/19 05:16 08/05/19 05:16 Labs: Laboratory Last Values WBC 9.3 K/mm3 (4.5-11.0) 08/05/19 05:16 RBC 3.76 M/mm3 (3.65-5.03) 08/05/19 05:16 Hgb 10.9 gm/dl (11.8-15.2) L 08/05/19 05:16 Hct 34.0 % (35.5-45.6) L 08/05/19 05:16 MCV 90 fl (84-94) 08/05/19 05:16 MCH 29 pg (28-32) 08/05/19 05:16 MCHC 32 % (32-34) 08/05/19 05:16 RDW 19.4 % (13.2-15.2) H 08/05/19 05:16 Plt Count 186 K/mm3 (140-440) 08/05/19 05:16 Lymph % (Auto) 9.5 % (13.4-35.0) L 08/03/19 04:57 [place] % (Auto) 7.0 % (0.0-7.3) 08/03/19 04:57 Eos % (Auto) 0.0 % (0.0-4.3) 08/03/19 04:57 Baso % (Auto) 0.5 % (0.0-1.8) 08/03/19 04:57 Lymph # 0.9 K/mm3 (1.2-5.4) L 08/03/19 04:57 [place] # 0.7 K/mm3 (0.0-0.8) 08/03/19 04:57 Eos # 0.0 K/mm3 (0.0-0.4) 08/03/19 04:57 Baso # 0.1 K/mm3 (0.0-0.1) 08/03/19 04:57 Add Manual Diff Complete 08/05/19 05:16 Total Counted 100 08/05/19 05:16 Seg Neutrophils % Incising Machine Operator 08/05/19 05:16 Seg Neuts % (Manual) 89.0 % (40.0-70.0) H 08/05/19 05:16 Band Neutrophils % 0 % 08/05/19 05:16 Lymphocytes % (Manual) 5.0 % (13.4-35.0) L 08/05/19 05:16 Reactive Lymphs % (Man) 0 % 08/05/19 05:16 Monocytes % (Manual) 6.0 % (0.0-7.3) 08/05/19 05:16 Eosinophils % (Manual) 0 % (0.0-4.3) 08/05/19 05:16 Basophils % (Manual) 0 % (0.0-1.8) 08/05/19 05:16 Metamyelocytes % 0 % 08/05/19 05:16 Myelocytes % 0 % 08/05/19 05:16 Promyelocytes % 0 % 08/05/19 05:16 Blast Cells % 0 % 08/05/19 05:16 Nucleated RBC % Not Reportable 08/05/19 05:16 Seg Neutrophils # 8.2 K/mm3 (1.8-7.7) H 08/03/19 04:57 Seg Neutrophils # Man 8.3 K/mm3 (1.8-7.7) H 08/05/19 05:16 Band Neutrophils # 0.0 K/mm3 08/05/19 05:16 Lymphocytes # (Manual) 0.5 K/mm3 (1.2-5.4) L 08/05/19 05:16 Abs React Lymphs (Man) 0.0 K/mm3 08/05/19 05:16 Monocytes # (Manual) 0.6 K/mm3 (0.0-0.8) 08/05/19 05:16 Eosinophils # (Manual) 0.0 K/mm3 (0.0-0.4) 08/05/19 05:16 Basophils # (Manual) 0.0 K/mm3 (0.0-0.1) 08/05/19 05:16 Metamyelocytes # 0.0 K/mm3 08/05/19 05:16 Myelocytes # 0.0 K/mm3 08/05/19 05:16 Promyelocytes # 0.0 K/mm3 08/05/19 05:16 Blast Cells # 0.0 K/mm3 08/05/19 05:16 WBC Morphology Not Reportable 08/05/19 05:16 Hypersegmented Neuts Not Reportable 08/05/19 05:16 Hyposegmented Neuts Not Reportable 08/05/19 05:16 Hypogranular Neuts Not Reportable 08/05/19 05:16 Smudge Cells Not Reportable 08/05/19 05:16 Toxic Granulation Not Reportable 08/05/19 05:16 Toxic Vacuolation Not Reportable 08/05/19 05:16 Dohle Bodies Not Reportable 08/05/19 05:16 Pelger-Huet Anomaly Not Reportable 08/05/19 05:16 Cathie Rods Not Reportable 08/05/19 05:16 Platelet Estimate Consistent w auto 08/05/19 05:16 Clumped Platelets Not Reportable 08/05/19 05:16 Plt Clumps, EDTA Not Reportable 08/05/19 05:16 Large Platelets Not Reportable 08/05/19 05:16 Giant Platelets Not Reportable 08/05/19 05:16 Platelet Satelliting Not Reportable 08/05/19 05:16 Plt Morphology Comment Not Reportable 08/05/19 05:16 RBC Morphology Not Reportable 08/05/19 05:16 Dimorphic RBCs Not Reportable 08/05/19 05:16 Polychromasia Not Reportable 08/05/19 05:16 Hypochromasia Not Reportable 08/05/19 05:16 Poikilocytosis Not Reportable 08/05/19 05:16 Anisocytosis Not Reportable 08/05/19 05:16 Microcytosis Not Reportable 08/05/19 05:16 Macrocytosis Not Reportable 08/05/19 05:16 Spherocytes Not Reportable 08/05/19 05:16 Pappenheimer Bodies Not Reportable 08/05/19 05:16 Sickle Cells Not Reportable 08/05/19 05:16 Target Cells Not Reportable 08/05/19 05:16 Tear Drop Cells Not Reportable 08/05/19 05:16 Ovalocytes Not Reportable 08/05/19 05:16 Stomatocytes Rare 08/05/19 05:16 Helmet Cells Not Reportable 08/05/19 05:16 Sharpe-Purdy Bodies Not Reportable 08/05/19 05:16 [place] Rings Not Reportable 08/05/19 05:16 Shahram Cells Rare 08/05/19 05:16 Bite Cells Not Reportable 08/05/19 05:16 Crenated Cell Not Reportable 08/05/19 05:16 Elliptocytes Few 08/05/19 05:16 Acanthocytes (Spur) Not Reportable 08/05/19 05:16 Rouleaux Not Reportable 08/05/19 05:16 Hemoglobin C Crystals Not Reportable 08/05/19 05:16 Schistocytes Not Reportable 08/05/19 05:16 Malaria parasites Not Reportable 08/05/19 05:16 [place] Bodies Not Reportable 08/05/19 05:16 Hem Pathologist Commnt No 08/05/19 05:16 PT 13.9 Sec. (12.2-14.9) 08/01/19 18:49 INR 1.08 (0.87-1.13) 08/01/19 18:49 APTT 30.8 Sec. (24.2-36.6) 08/01/19 18:49 Sodium 136 mmol/L (137-145) L 08/05/19 05:16 Potassium 4.7 mmol/L (3.6-5.0) 08/05/19 05:16 Chloride 99.9 mmol/L (98-107) 08/05/19 05:16 Carbon Dioxide 27 mmol/L (22-30) 08/05/19 05:16 Anion Gap 14 mmol/L 08/05/19 05:16 BUN 38 mg/dL (9-20) H 08/05/19 05:16 Creatinine 1.9 mg/dL (0.8-1.5) H 08/05/19 05:16 Estimated GFR 45 ml/min 08/05/19 05:16 BUN/Creatinine Ratio 20 % 08/05/19 05:16 Glucose 160 mg/dL (75-100) H 08/05/19 05:16 POC Glucose 82 (70-105) 08/05/19 12:23 Hemoglobin A1c 5.9 % (4-6) 08/02/19 07:49 Calcium 8.4 mg/dL (8.4-10.2) 08/05/19 05:16 Total Bilirubin 1.20 mg/dL (0.1-1.2) 08/03/19 04:57 Direct Bilirubin 1.0 mg/dL (0-0.2) H 08/01/19 18:49 Indirect Bilirubin 0.8 mg/dL 08/01/19 18:49 AST 21 units/L (5-40) 08/03/19 04:57 ALT 20 units/L (7-56) 08/03/19 04:57 Alkaline Phosphatase 195 units/L (35-129) H 08/03/19 04:57 Lactate Dehydrogenase 199 units/L (91-180) H 08/03/19 17:01 Troponin T 0.054 ng/mL (0.00-0.029) H 08/02/19 00:28 NT-Pro-B Natriuret Pep 72528 pg/mL (0-900) H 08/01/19 18:49 Total Protein 6.6 g/dL (6.3-8.2) 08/03/19 04:57 Albumin 2.9 g/dL (3.9-5) L 08/03/19 04:57 Albumin/Globulin Ratio 0.8 % 08/03/19 04:57 Triglycerides 69 mg/dL (2-149) 08/01/19 18:49 Cholesterol 131 mg/dL (50-199) 08/01/19 18:49 LDL Cholesterol Direct 88 mg/dL (50-130) 08/01/19 18:49 HDL Cholesterol 41 mg/dL (40-59) 08/01/19 18:49 Cholesterol/HDL Ratio 3.19 % 08/01/19 18:49 Active Medications - Current Medications Current Medications: Generic Name Dose Route Start Last Admin Trade Name Freq PRN Reason Stop Dose Admin Acetaminophen 650 mg 08/02/19 04:18 Tylenol PO Q4H PRN Pain MILD(1-3)/Fever >100.5/TRUJILLO Apixaban 5 mg 08/02/19 10:00 08/05/19 10:06 Eliquis PO Not Given BID [facility] Protocol Aspirin 81 mg 08/02/19 10:00 08/05/19 09:58 Baby Aspirin PO 81 mg QDAY SOUMYA Administration Atorvastatin Calcium 40 mg 08/02/19 22:00 08/04/19 22:36 Lipitor PO 40 mg QHS SOUMYA Administration Digoxin 0.25 mg 08/04/19 17:00 08/04/19 18:30 Lanoxin PO 0.25 mg Q48H SOUMYA Administration Docusate Sodium 100 mg 08/02/19 10:00 08/05/19 09:58 Colace PO 100 mg BID SOUMYA Administration Famotidine 20 mg 08/02/19 10:00 08/05/19 09:58 Pepcid PO 20 mg BID SOUMYA Administration Furosemide 40 mg 08/02/19 06:00 08/05/19 06:39 Lasix IV 40 mg 0600,1800 SOUMYA Administration Hydromorphone HCl 0.5 mg 08/02/19 01:32 08/02/19 05:52 Dilaudid IV 0.5 mg Q4H PRN Administration Pain , Severe (7-10) Levofloxacin/Dextrose 750 mg in 150 mls @ 100 mls/hr 08/02/19 10:00 08/05/19 09:59 Levaquin 750mg/150ml IV 08/08/19 11:29 100 mls/hr Q24HR SOUMYA Administration Protocol Insulin Human Lispro 0 unit 08/02/19 07:30 08/05/19 16:27 Humalog SUB-Q Not Given ACHS [facility] Protocol Metoclopramide HCl 10 mg 08/02/19 04:12 Reglan IV Q6H PRN Nausea And Vomiting Metoprolol Tartrate 50 mg 08/02/19 08:00 08/05/19 16:26 Metoprolol PO Not Given TID [facility] Metoprolol Tartrate 25 mg 08/02/19 08:00 08/05/19 16:26 Metoprolol PO Not Given TID [facility] Nicotine 14 mg 08/02/19 10:00 08/05/19 10:06 Habitrol TD Not Given QDAY [facility] Ondansetron HCl 4 mg 08/02/19 04:12 Zofran IV Q8H PRN Nausea And Vomiting Oxycodone HCl 5 mg 08/02/19 04:18 08/05/19 06:47 Roxicodone PO 5 mg Q6H PRN Administration Pain, (7-10) Oxycodone/Acetaminophen 1 tab 08/02/19 04:09 08/05/19 06:46 Percocet 5/325 PO 1 tab Q6H PRN Administration Pain , Severe (7-10) Prednisone 20 mg 08/02/19 10:00 08/05/19 09:57 Deltasone PO 20 mg QDAY [facility] Administration Sodium Bicarbonate 1,300 mg 08/02/19 10:00 08/05/19 09:58 Sodium Bicarbonate PO 1,300 mg BID SOUMYA Administration Sodium Chloride 10 ml 08/02/19 04:12 08/04/19 06:17 Sodium Chloride Flush Syringe 10 Ml IV 10 ml PRN PRN Administration LINE FLUSH Sodium Chloride 10 ml 08/02/19 10:00 08/05/19 10:07 Sodium Chloride Flush Syringe 10 Ml IV 10 ml BID SOUMYA Administration
[2019-08-05] MEDS: HYDROmorphone 1 MG/1 ML INJ IV PRN (23:03)
[2019-08-06] MEDS: INSULIN LISPRO 100 UNIT/ML SUB-Q SCH ×5 (02:30→22:57)
[2019-08-06] MEDS: FUROSEMIDE 40 MG/4 ML INJ IV SCH ×2 (06:10→17:11)
[2019-08-06 07:04] LABS: Basophils % (Auto) 0.4 % (0.0-1.8); Eosinophils % (Auto) 0.3 % (0.0-4.3); Hemoglobin 11.4 gm/dl (11.8-15.2); Lymphocytes # (Auto) 1.2 K/mm3 (1.2-5.4); Lymphocytes % (Auto) 10.3 % (13.4-35.0); Mean Corpuscular HGB Conc 33 % (32-34); Mean Corpuscular Volume 89 fl (84-94); Monocytes # (Auto) 0.9 K/mm3 (0.0-0.8); Monocytes % (Auto) 7.7 % (0.0-7.3); Platelet Count 201 K/mm3 (140-440); Red Blood Count 3.92 M/mm3 (3.65-5.03); Red Cell Distribution Width 19.3 % (13.2-15.2)
[2019-08-06 07:15] LABS: Calcium 8.7 mg/dL (8.4-10.2)
[2019-08-06] MEDS: METOPROLOL TARTRATE 50 MG TAB PO SCH ×3 (08:00→22:29)
[2019-08-06] MEDS: METOPROLOL TARTRATE 25 MG TAB PO SCH ×3 (08:00→22:30)
[2019-08-06] MEDS: HYDROmorphone 1 MG/1 ML INJ IV PRN ×3 (08:35→17:45)
[2019-08-06] MEDS: oxyCODONE 5 MG TAB PO PRN ×2 (09:15→15:00)
[2019-08-06] MEDS: oxyCODONE /ACETAMINOPHEN 5-325MG TAB PO PRN ×2 (09:15→15:00)
[2019-08-06] MEDS: ASPIRIN 81 MG TAB CHEW PO SCH (09:27)
[2019-08-06] MEDS: SODIUM BICARBONATE 650 MG TAB PO SCH ×2 (09:27→22:28)
[2019-08-06] MEDS: FAMOTIDINE 20 MG TAB PO SCH ×2 (09:27→22:29)
[2019-08-06] MEDS: APIXABAN 5 MG TAB PO SCH ×2 (09:27→22:28)
[2019-08-06] MEDS: predniSONE 20 MG TAB PO SCH (09:27)
[2019-08-06] MEDS: NICOTINE 14 MG/24 HR PATCH TD SCH (09:28)
[2019-08-06] MEDS: DOCUSATE SODIUM 100 MG CAP PO SCH ×2 (09:28→22:28)
--- NOTE | 2019-08-06 11:57 | Progress Note ---
Assessment and Plan Acute hypoxic respiratory failure Recurrent Pleural effusion -s/p thoracentesis 08/02/19 Tobacco use disorder with nicotine dependence COPD , no documented PFTs/FEV1 Chronic systolic heart failure Acute on Chronic renal failure. LLE ulcer Chronic atrial fibrillation Hx of Nonischemic cardiomyopathy s/p ICD-EF 15-20% by echo 11/2018 Hypertension Type 2 diabetes mellitus Continue all current care as documented below Monitor chest tube output, place to water seal Follow up CXR in the morning -Wean supplemental oxygen to keep O2 sats>90% -Optimize heart failure measures while monitoring hemodynamics and renal function -Bronchodilators, monitor for tachycardia -Anticoagulation -Avoid nephrotoxins, renally dose all medications -Quick steroid taper in view of heart failure -ABG prn -Mobility to prevent pressure ulcers -PT/OT/Wound care -Accuchecks with glycemic control. Keep glucose 140-180mg/dL to optimize wound healing -Smoking cessation counseling done at the bedside fro >7 minutes. -Will need home oxygen evaluation on discharge -Pulmonary out patient follow up for PFTs and optimization of respiratory status Subjective Date of service: 08/06/19 Interval history: Follow up for Dyspnea, acute hypoxic respiratory failure: Recurrent right pleural effusion: Tobacco use with nicotine dependence Seen and examined. Vitals, labs, medications, chart and imaging reviewed. s/p right chest tube placement. Chest tube about about 250ml since this morning States he is feeling better, denies any chest pain, no cough, no nausea or vomiting Objective Vital Signs - 12hr 08/06/19 08/06/19 08/06/19 00:59 01:00 05:00 Temperature 97.9 F 97.7 F Pulse Rate 110 H 76 83 Respiratory 20 20 20 Rate Blood Pressure Blood Pressure 109/83 95/53 [Left] O2 Sat by Pulse 100 96 96 Oximetry 08/06/19 08/06/19 08/06/19 05:04 07:44 11:32 Temperature 97.7 F 97.9 F 98.1 F Pulse Rate 56 L 64 Respiratory 20 18 18 Rate Blood Pressure 114/83 90/67 124/91 Blood Pressure [Left] O2 Sat by Pulse 99 95 Oximetry Constitutional: no acute distress, alert, appears uncomfortable Eyes: non-icteric ENT: oropharynx moist Neck: supple, no lymphadenopathy, no JVD Effort: mildly labored Ascultation: Right: diminished breath sounds (base) Cardiovascular: irregular rhythm, other (S1,S2) Gastrointestinal: normoactive bowel sounds, soft, non-tender Integumentary: normal, other (Wound on right lower leg.) Extremities: no cyanosis, edema (bilateral) Neurologic: normal mental status, non-focal exam, pupils equal and round, CN II- XII normal, motor strength normal and Psychiatric: mood appropriate, affect normal CBC and BMP: 08/09/19 11:44 08/09/19 11:44 ABG, PT/INR, D-dimer: PT/INR, D-dimer PT 13.9 Sec. (12.2-14.9) 08/01/19 18:49 INR 1.08 (0.87-1.13) 08/01/19 18:49 Abnormal lab findings: Abnormal Labs 08/01/19 08/01/19 08/01/19 18:49 18:49 18:49 WBC Hgb 11.6 L Hct RDW 19.3 H Lymph % (Auto) 10.0 L [place] % (Auto) 9.5 H Lymph # 1.0 L [place] # 0.9 H Seg Neutrophils % 79.2 H Seg Neuts % (Manual) Lymphocytes % (Manual) Seg Neutrophils # Seg Neutrophils # Man Lymphocytes # (Manual) Sodium Chloride Carbon Dioxide 21 L BUN Creatinine Glucose POC Glucose Calcium Total Bilirubin 1.80 H Direct Bilirubin 1.0 H Alkaline Phosphatase 212 H Lactate Dehydrogenase Troponin T 0.044 H NT-Pro-B Natriuret Pep 02712 H Albumin 3.4 L 08/01/19 08/02/19 08/02/19 21:07 00:28 10:14 WBC Hgb Hct RDW Lymph % (Auto) [place] % (Auto) Lymph # [place] # Seg Neutrophils % Seg Neuts % (Manual) Lymphocytes % (Manual) Seg Neutrophils # Seg Neutrophils # Man Lymphocytes # (Manual) Sodium Chloride Carbon Dioxide BUN Creatinine Glucose POC Glucose 115 H Calcium Total Bilirubin Direct Bilirubin Alkaline Phosphatase Lactate Dehydrogenase Troponin T 0.049 H 0.054 H NT-Pro-B Natriuret Pep Albumin 08/02/19 08/02/19 08/02/19 11:18 16:04 21:51 WBC Hgb Hct RDW Lymph % (Auto) [place] % (Auto) Lymph # [place] # Seg Neutrophils % Seg Neuts % (Manual) Lymphocytes % (Manual) Seg Neutrophils # Seg Neutrophils # Man Lymphocytes # (Manual) Sodium Chloride Carbon Dioxide BUN Creatinine Glucose POC Glucose 144 H 126 H 130 H Calcium Total Bilirubin Direct Bilirubin Alkaline Phosphatase Lactate Dehydrogenase Troponin T NT-Pro-B Natriuret Pep Albumin 08/03/19 08/03/19 08/03/19 04:57 04:57 16:36 WBC Hgb 11.0 L Hct 34.3 L RDW 19.4 H Lymph % (Auto) 9.5 L [place] % (Auto) Lymph # 0.9 L [place] # Seg Neutrophils % 83.0 H Seg Neuts % (Manual) Lymphocytes % (Manual) Seg Neutrophils # 8.2 H Seg Neutrophils # Man Lymphocytes # (Manual) Sodium Chloride Carbon Dioxide BUN 30 H Creatinine 2.1 H D Glucose 140 H POC Glucose 142 H Calcium 8.1 L Total Bilirubin Direct Bilirubin Alkaline Phosphatase 195 H Lactate Dehydrogenase Troponin T NT-Pro-B Natriuret Pep Albumin 2.9 L 08/03/19 08/03/19 08/04/19 17:01 21:12 11:31 WBC Hgb Hct RDW Lymph % (Auto) [place] % (Auto) Lymph # [place] # Seg Neutrophils % Seg Neuts % (Manual) Lymphocytes % (Manual) Seg Neutrophils # Seg Neutrophils # Man Lymphocytes # (Manual) Sodium Chloride Carbon Dioxide BUN Creatinine Glucose POC Glucose 158 H 59 L Calcium Total Bilirubin Direct Bilirubin Alkaline Phosphatase Lactate Dehydrogenase 199 H Troponin T NT-Pro-B Natriuret Pep Albumin 08/04/19 08/04/19 08/05/19 16:07 21:05 05:16 WBC Hgb 10.9 L Hct 34.0 L RDW 19.4 H Lymph % (Auto) [place] % (Auto) Lymph # [place] # Seg Neutrophils % Seg Neuts % (Manual) 89.0 H Lymphocytes % (Manual) 5.0 L Seg Neutrophils # Seg Neutrophils # Man 8.3 H Lymphocytes # (Manual) 0.5 L Sodium Chloride Carbon Dioxide BUN Creatinine Glucose POC Glucose 174 H 118 H Calcium Total Bilirubin Direct Bilirubin Alkaline Phosphatase Lactate Dehydrogenase Troponin T NT-Pro-B Natriuret Pep Albumin 08/05/19 08/05/19 08/06/19 05:16 20:35 06:07 WBC 11.9 H Hgb 11.4 L Hct 35.0 L RDW 19.3 H Lymph % (Auto) 10.3 L [place] % (Auto) 7.7 H Lymph # [place] # 0.9 H Seg Neutrophils % 81.3 H Seg Neuts % (Manual) Lymphocytes % (Manual) Seg Neutrophils # 9.7 H Seg Neutrophils # Man Lymphocytes # (Manual) Sodium 136 L Chloride Carbon Dioxide BUN 38 H Creatinine 1.9 H Glucose 160 H POC Glucose 125 H Calcium Total Bilirubin Direct Bilirubin Alkaline Phosphatase Lactate Dehydrogenase Troponin T NT-Pro-B Natriuret Pep Albumin 08/06/19 06:07 WBC Hgb Hct RDW Lymph % (Auto) [place] % (Auto) Lymph # [place] # Seg Neutrophils % Seg Neuts % (Manual) Lymphocytes % (Manual) Seg Neutrophils # Seg Neutrophils # Man Lymphocytes # (Manual) Sodium Chloride 97.5 L Carbon Dioxide BUN 41 H Creatinine 1.8 H Glucose POC Glucose Calcium Total Bilirubin Direct Bilirubin Alkaline Phosphatase Lactate Dehydrogenase Troponin T NT-Pro-B Natriuret Pep Albumin Allied health notes reviewed: nursing
[2019-08-06] MEDS ORDERED: FLU VACC QUAD 2019-20 (3 YR UP)/PF 60 MCG/0.5 ML SYRINGE IM ONE (12:00)
[2019-08-06] MEDS ORDERED: PNEUMOCOCCAL 23 Valent 0.5 ML VIAL IM ONE (12:00)
--- NOTE | 2019-08-06 12:04 | Progress Note ---
Assessment and Plan Assessment and plan: Recurrent Pleural effusion -s/p right chest tube placed yesterday. Continue per pulmonology. Chronic systolic heart failure. Fluid/sodium restriction. Continue medical therapy for chronic systolic heart failure. Cardiology consulted Acute on Chronic renal failure. Consult Nephrology for further eval LLE ulcer. Wound care Chronic atrial fibrillation Cont. on Eliquis for oral anticoagulation as an outpatient rate controlled with metoprolol and digoxin Hx of Nonischemic cardiomyopathy EF 15-20% by echo 11/2018 Presence of the ICD recent interrogation revealed a normal functioning device hypertension. Cont current regimen Type 2 diabetes mellitus. Accuchecks and SSRI Chronic obstructive pulmonary disease. Stable History Interval history: No new issues overnight Hospitalist Physical - Constitutional Vitals: Temp Pulse Resp BP Pulse Ox 98.1 F 64 18 124/91 95 08/06/19 11:32 08/06/19 11:32 08/06/19 11:32 08/06/19 11:32 08/06/19 11:32 General appearance: Present: no acute distress - EENT Eyes: Present: PERRL, EOM intact ENT: hearing intact, clear oral mucosa, dentition normal - Neck Neck: Present: supple, normal ROM - Respiratory Respiratory effort: normal Respiratory: right: other (chest tube), bilateral: diminished, rales - Cardiovascular Rhythm: regular Heart Sounds: Present: S1 & S2. Absent: gallop, rub - Extremities Extremities: no ischemia, No edema, Full ROM - Abdominal General gastrointestinal: soft, non-tender, non-distended, normal bowel sounds - Integumentary Integumentary: Present: clear, warm, dry - Neurologic Neurologic: CNII-XII intact, moves all extremities Results - Labs CBC & Chem 7: 08/06/19 06:07 08/06/19 06:07 Labs: Laboratory Last Values WBC 11.9 K/mm3 (4.5-11.0) H 08/06/19 06:07 RBC 3.92 M/mm3 (3.65-5.03) 08/06/19 06:07 Hgb 11.4 gm/dl (11.8-15.2) L 08/06/19 06:07 Hct 35.0 % (35.5-45.6) L 08/06/19 06:07 MCV 89 fl (84-94) 08/06/19 06:07 MCH 29 pg (28-32) 08/06/19 06:07 MCHC 33 % (32-34) 08/06/19 06:07 RDW 19.3 % (13.2-15.2) H 08/06/19 06:07 Plt Count 201 K/mm3 (140-440) 08/06/19 06:07 Lymph % (Auto) 10.3 % (13.4-35.0) L 08/06/19 06:07 Harper % (Auto) 7.7 % (0.0-7.3) H 08/06/19 06:07 Eos % (Auto) 0.3 % (0.0-4.3) 08/06/19 06:07 Baso % (Auto) 0.4 % (0.0-1.8) 08/06/19 06:07 Lymph # 1.2 K/mm3 (1.2-5.4) 08/06/19 06:07 Harper # 0.9 K/mm3 (0.0-0.8) H 08/06/19 06:07 Eos # 0.0 K/mm3 (0.0-0.4) 08/06/19 06:07 Baso # 0.0 K/mm3 (0.0-0.1) 08/06/19 06:07 Add Manual Diff Complete 08/05/19 05:16 Total Counted 100 08/05/19 05:16 Seg Neutrophils % 81.3 % (40.0-70.0) H 08/06/19 06:07 Seg Neuts % (Manual) 89.0 % (40.0-70.0) H 08/05/19 05:16 Band Neutrophils % 0 % 08/05/19 05:16 Lymphocytes % (Manual) 5.0 % (13.4-35.0) L 08/05/19 05:16 Reactive Lymphs % (Man) 0 % 08/05/19 05:16 Monocytes % (Manual) 6.0 % (0.0-7.3) 08/05/19 05:16 Eosinophils % (Manual) 0 % (0.0-4.3) 08/05/19 05:16 Basophils % (Manual) 0 % (0.0-1.8) 08/05/19 05:16 Metamyelocytes % 0 % 08/05/19 05:16 Myelocytes % 0 % 08/05/19 05:16 Promyelocytes % 0 % 08/05/19 05:16 Blast Cells % 0 % 08/05/19 05:16 Nucleated RBC % Not Reportable 08/05/19 05:16 Seg Neutrophils # 9.7 K/mm3 (1.8-7.7) H 08/06/19 06:07 Seg Neutrophils # Man 8.3 K/mm3 (1.8-7.7) H 08/05/19 05:16 Band Neutrophils # 0.0 K/mm3 08/05/19 05:16 Lymphocytes # (Manual) 0.5 K/mm3 (1.2-5.4) L 08/05/19 05:16 Abs React Lymphs (Man) 0.0 K/mm3 08/05/19 05:16 Monocytes # (Manual) 0.6 K/mm3 (0.0-0.8) 08/05/19 05:16 Eosinophils # (Manual) 0.0 K/mm3 (0.0-0.4) 08/05/19 05:16 Basophils # (Manual) 0.0 K/mm3 (0.0-0.1) 08/05/19 05:16 Metamyelocytes # 0.0 K/mm3 08/05/19 05:16 Myelocytes # 0.0 K/mm3 08/05/19 05:16 Promyelocytes # 0.0 K/mm3 08/05/19 05:16 Blast Cells # 0.0 K/mm3 08/05/19 05:16 WBC Morphology Not Reportable 08/05/19 05:16 Hypersegmented Neuts Not Reportable 08/05/19 05:16 Hyposegmented Neuts Not Reportable 08/05/19 05:16 Hypogranular Neuts Not Reportable 08/05/19 05:16 Smudge Cells Not Reportable 08/05/19 05:16 Toxic Granulation Not Reportable 08/05/19 05:16 Toxic Vacuolation Not Reportable 08/05/19 05:16 Dohle Bodies Not Reportable 08/05/19 05:16 Pelger-Huet Anomaly Not Reportable 08/05/19 05:16 Cathie Rods Not Reportable 08/05/19 05:16 Platelet Estimate Consistent w auto 08/05/19 05:16 Clumped Platelets Not Reportable 08/05/19 05:16 Plt Clumps, EDTA Not Reportable 08/05/19 05:16 Large Platelets Not Reportable 08/05/19 05:16 Giant Platelets Not Reportable 08/05/19 05:16 Platelet Satelliting Not Reportable 08/05/19 05:16 Plt Morphology Comment Not Reportable 08/05/19 05:16 RBC Morphology Not Reportable 08/05/19 05:16 Dimorphic RBCs Not Reportable 08/05/19 05:16 Polychromasia Not Reportable 08/05/19 05:16 Hypochromasia Not Reportable 08/05/19 05:16 Poikilocytosis Not Reportable 08/05/19 05:16 Anisocytosis Not Reportable 08/05/19 05:16 Microcytosis Not Reportable 08/05/19 05:16 Macrocytosis Not Reportable 08/05/19 05:16 Spherocytes Not Reportable 08/05/19 05:16 Pappenheimer Bodies Not Reportable 08/05/19 05:16 Sickle Cells Not Reportable 08/05/19 05:16 Target Cells Not Reportable 08/05/19 05:16 Tear Drop Cells Not Reportable 08/05/19 05:16 Ovalocytes Not Reportable 08/05/19 05:16 Stomatocytes Rare 08/05/19 05:16 Helmet Cells Not Reportable 08/05/19 05:16 [place] Bodies Not Reportable 08/05/19 05:16 [place] Rings Not Reportable 08/05/19 05:16 [place] Cells Rare 08/05/19 05:16 Bite Cells Not Reportable 08/05/19 05:16 Crenated Cell Not Reportable 08/05/19 05:16 Elliptocytes Few 08/05/19 05:16 Acanthocytes (Spur) Not Reportable 08/05/19 05:16 Rouleaux Not Reportable 08/05/19 05:16 Hemoglobin C Crystals Not Reportable 08/05/19 05:16 Schistocytes Not Reportable 08/05/19 05:16 Malaria parasites Not Reportable 08/05/19 05:16 [place] Bodies Not Reportable 08/05/19 05:16 Hem Pathologist Commnt No 08/05/19 05:16 PT 13.9 Sec. (12.2-14.9) 08/01/19 18:49 INR 1.08 (0.87-1.13) 08/01/19 18:49 APTT 30.8 Sec. (24.2-36.6) 08/01/19 18:49 Sodium 137 mmol/L (137-145) 08/06/19 06:07 Potassium 4.6 mmol/L (3.6-5.0) 08/06/19 06:07 Chloride 97.5 mmol/L (98-107) L 08/06/19 06:07 Carbon Dioxide 25 mmol/L (22-30) 08/06/19 06:07 Anion Gap 19 mmol/L 08/06/19 06:07 BUN 41 mg/dL (9-20) H 08/06/19 06:07 Creatinine 1.8 mg/dL (0.8-1.5) H 08/06/19 06:07 Estimated GFR 48 ml/min 08/06/19 06:07 BUN/Creatinine Ratio 23 % 08/06/19 06:07 Glucose 95 mg/dL (75-100) 08/06/19 06:07 POC Glucose 88 (70-105) 08/06/19 07:56 Hemoglobin A1c 5.9 % (4-6) 08/02/19 07:49 Calcium 8.7 mg/dL (8.4-10.2) 08/06/19 06:07 Total Bilirubin 1.20 mg/dL (0.1-1.2) 08/03/19 04:57 Direct Bilirubin 1.0 mg/dL (0-0.2) H 08/01/19 18:49 Indirect Bilirubin 0.8 mg/dL 08/01/19 18:49 AST 21 units/L (5-40) 08/03/19 04:57 ALT 20 units/L (7-56) 08/03/19 04:57 Alkaline Phosphatase 195 units/L (35-129) H 08/03/19 04:57 Lactate Dehydrogenase 199 units/L (91-180) H 08/03/19 17:01 Troponin T 0.054 ng/mL (0.00-0.029) H 08/02/19 00:28 NT-Pro-B Natriuret Pep 07949 pg/mL (0-900) H 08/01/19 18:49 Total Protein 6.6 g/dL (6.3-8.2) 08/03/19 04:57 Albumin 2.9 g/dL (3.9-5) L 08/03/19 04:57 Albumin/Globulin Ratio 0.8 % 08/03/19 04:57 Triglycerides 69 mg/dL (2-149) 08/01/19 18:49 Cholesterol 131 mg/dL (50-199) 08/01/19 18:49 LDL Cholesterol Direct 88 mg/dL (50-130) 08/01/19 18:49 HDL Cholesterol 41 mg/dL (40-59) 08/01/19 18:49 Cholesterol/HDL Ratio 3.19 % 08/01/19 18:49 Active Medications - Current Medications Current Medications: Generic Name Dose Route Start Last Admin Trade Name Freq PRN Reason Stop Dose Admin Acetaminophen 650 mg 08/02/19 04:18 Tylenol PO Q4H PRN Pain MILD(1-3)/Fever >100.5/TRUJILLO Apixaban 5 mg 08/02/19 10:00 08/06/19 09:27 Eliquis PO 5 mg BID SOUMYA Administration Protocol Aspirin 81 mg 08/02/19 10:00 08/06/19 09:27 Baby Aspirin PO 81 mg QDAY SOUMYA Administration Atorvastatin Calcium 40 mg 08/02/19 22:00 08/05/19 22:55 Lipitor PO 40 mg QHS SOUMYA Administration Digoxin 0.25 mg 08/04/19 17:00 08/04/19 18:30 Lanoxin PO 0.25 mg Q48H SOUMYA Administration Docusate Sodium 100 mg 08/02/19 10:00 08/06/19 09:28 Colace PO 100 mg BID SOUMYA Administration Famotidine 20 mg 08/02/19 10:00 08/06/19 09:27 Pepcid PO 20 mg BID SOUMYA Administration Furosemide 40 mg 08/02/19 06:00 08/06/19 06:10 Lasix IV 40 mg 0600,1800 SOUMYA Administration Hydromorphone HCl 0.5 mg 08/02/19 01:32 08/06/19 11:40 Dilaudid IV 0.5 mg Q4H PRN Administration Pain , Severe (7-10) Levofloxacin/Dextrose 750 mg in 150 mls @ 100 mls/hr 08/02/19 10:00 08/06/19 09:28 Levaquin 750mg/150ml IV 08/08/19 11:29 100 mls/hr Q24HR SOUMYA Administration Protocol Insulin Human Lispro 0 unit 08/02/19 07:30 08/06/19 07:30 Humalog SUB-Q Not Given ACHS [facility] Protocol Metoclopramide HCl 10 mg 08/02/19 04:12 Reglan IV Q6H PRN Nausea And Vomiting Metoprolol Tartrate 50 mg 08/02/19 08:00 08/05/19 22:55 Metoprolol PO 50 mg TID SOUMYA Administration Metoprolol Tartrate 25 mg 08/02/19 08:00 08/05/19 22:56 Metoprolol PO 25 mg TID SOUMYA Administration Nicotine 14 mg 08/02/19 10:00 08/06/19 09:28 Habitrol TD Not Given QDAY [facility] Ondansetron HCl 4 mg 08/02/19 04:12 Zofran IV Q8H PRN Nausea And Vomiting Oxycodone HCl 5 mg 08/02/19 04:18 08/06/19 09:15 Roxicodone PO 5 mg Q6H PRN Administration Pain, (7-10) Oxycodone/Acetaminophen 1 tab 08/02/19 04:09 08/06/19 09:15 Percocet 5/325 PO 1 tab Q6H PRN Administration Pain , Severe (7-10) Prednisone 20 mg 08/02/19 10:00 08/06/19 09:27 Deltasone PO 20 mg QDAY SOUMYA Administration Sodium Bicarbonate 1,300 mg 08/02/19 10:00 08/06/19 09:27 Sodium Bicarbonate PO 1,300 mg BID SOUMYA Administration Sodium Chloride 10 ml 08/02/19 04:12 08/04/19 06:17 Sodium Chloride Flush Syringe 10 Ml IV 10 ml PRN PRN Administration LINE FLUSH Sodium Chloride 10 ml 08/02/19 10:00 08/06/19 09:30 Sodium Chloride Flush Syringe 10 Ml IV 10 ml BID SOUMYA Administration
[2019-08-06] MEDS ORDERED: ACETAMINOPHEN 325 MG TAB PO PRN (12:38)
[2019-08-06] MEDS: MORPHINE 2 MG/1 ML INJ IV PRN ×3 (15:31→22:58)
--- NOTE | 2019-08-06 17:01 | Consultation ---
History of Present Illness - Reason for Consult Consult date: 08/06/19 chronic renal failure - History of Present Illness Mr. Coleman is a 54yo with CHF and self reported CKD who presented to the ED with progressive worsening of SOB. He was [facility] hospitalization for similar history. During hospital stay, patient underwent thoracentesis for right pleural effusion. Past History Past Medical History: other (Hypertension >15years, Type II DM (uncontrolled), CKD dx 2018, CHF, COPD) Past Surgical History: Other (ICD implantation) Social history: no significant social history Family history: diabetes, hypertension Medications and Allergies Allergies Allergy/AdvReac Type Severity Reaction Status Date / Time Penicillins Allergy Itching Verified 03/05/19 22:41 strawberry Allergy Hives Verified 03/05/19 22:41 Home Medications Medication Instructions Recorded Confirmed Last Taken Type Aspirin [Aspirin BABY CHEW TAB] 81 mg PO QDAY #30 tab.chew 03/14/19 08/02/19 07/19/19 15:57 Rx Acetaminophen [Acetaminophen TAB] 2 tab PO Q4H PRN #15 tablet 06/25/19 08/02/19 07/19/19 15:58 Rx Apixaban [Eliquis] 1 tab PO BID #60 tablet 07/24/19 08/02/19 Unknown Rx AtorvaSTATin [Lipitor] 40 mg PO QHS #30 tablet 07/24/19 08/02/19 Unknown Rx Colchicine 0.6 mg PO QDAY #10 capsule 07/24/19 08/02/19 Unknown Rx Digoxin [Lanoxin] 0.25 mg PO DAILY@1700 #30 tablet 07/24/19 08/02/19 Unknown Rx Docusate Sodium [Colace CAP] 100 mg PO BID capsule 07/24/19 08/02/19 Unknown Rx Metoprolol [Lopressor TAB] 75 mg PO TID #90 tablet 07/24/19 08/02/19 Unknown Rx Nicotine [Habitrol] 14 mg TD QDAY #30 patch 07/24/19 08/02/19 Unknown Rx Oxycodone HCl/Acetaminophen 1 each PO Q6HR PRN #20 tablet 07/24/19 08/02/19 Unknown Rx [Percocet 10/325 mg] Sodium Bicarbonate 1,300 mg PO BID #90 tablet 07/24/19 08/02/19 Unknown Rx Torsemide [Demadex] 100 mg PO DAILY@0600 #30 tablet 07/24/19 08/02/19 Unknown Rx guaiFENesin ER [Mucinex ER] 600 mg PO BID #60 tablet 07/24/19 08/02/19 Unknown Rx oxyCODONE /ACETAMINOPHEN [Percocet 1 tab PO Q6H PRN tablet 07/24/19 08/02/19 Unknown Rx 5/325 mg] predniSONE [Deltasone] 20 mg PO QDAY #7 tablet 07/24/19 08/02/19 Unknown Rx Active Meds: Active Medications Acetaminophen (Tylenol) 650 mg PO Q4H PRN PRN Reason: Pain MILD(1-3)/Fever >100.5/TRUJILLO Apixaban (Eliquis) 5 mg PO BID [facility]; Protocol Last Admin: 08/06/19 09:27 Dose: 5 mg Documented by: Aspirin (Baby Aspirin) 81 mg PO QDAY [facility] Last Admin: 08/06/19 09:27 Dose: 81 mg Documented by: Atorvastatin Calcium (Lipitor) 40 mg PO QHS [facility] Last Admin: 08/05/19 22:55 Dose: 40 mg Documented by: Digoxin (Lanoxin) 0.25 mg PO Q48H [facility] Last Admin: 08/04/19 18:30 Dose: 0.25 mg Documented by: Docusate Sodium (Colace) 100 mg PO BID [facility] Last Admin: 08/06/19 09:28 Dose: 100 mg Documented by: Famotidine (Pepcid) 20 mg PO BID [facility] Last Admin: 08/06/19 09:27 Dose: 20 mg Documented by: Furosemide (Lasix) 40 mg IV 0600,1800 [facility] Last Admin: 08/06/19 06:10 Dose: 40 mg Documented by: Hydromorphone HCl (Dilaudid) 0.5 mg IV Q4H PRN PRN Reason: Pain , Severe (7-10) Last Admin: 08/06/19 11:40 Dose: 0.5 mg Documented by: Levofloxacin/Dextrose (Levaquin 750mg/150ml) 750 mg in 150 mls @ 100 mls/hr IV Q24HR [facility]; Protocol Stop: 08/08/19 11:29 Last Admin: 08/06/19 09:28 Dose: 100 mls/hr Documented by: Insulin Human Lispro (Humalog) 0 unit SUB-Q ACHS [facility]; Protocol Last Admin: 08/06/19 11:30 Dose: Not Given Documented by: Metoclopramide HCl (Reglan) 10 mg IV Q6H PRN PRN Reason: Nausea And Vomiting Metoprolol Tartrate (Metoprolol) 50 mg PO TID [facility] Last Admin: 08/06/19 08:00 Dose: Not Given Documented by: Metoprolol Tartrate (Metoprolol) 25 mg PO TID [facility] Last Admin: 08/06/19 08:00 Dose: Not Given Documented by: Morphine Sulfate (Morphine) 2 mg IV Q4H PRN PRN Reason: Pain, Moderate (4-6) Last Admin: 08/06/19 15:31 Dose: 2 mg Documented by: Nicotine (Habitrol) 14 mg TD QDAY [facility] Last Admin: 08/06/19 09:28 Dose: Not Given Documented by: Ondansetron HCl (Zofran) 4 mg IV Q8H PRN PRN Reason: Nausea And Vomiting Oxycodone HCl (Roxicodone) 5 mg PO Q6H PRN PRN Reason: Pain, (7-10) Last Admin: 08/06/19 15:00 Dose: 5 mg Documented by: Oxycodone/Acetaminophen (Percocet 5/325) 1 tab PO Q6H PRN PRN Reason: Pain , Severe (7-10) Last Admin: 08/06/19 15:00 Dose: 1 tab Documented by: Prednisone (Deltasone) 20 mg PO QDAY [facility] Last Admin: 08/06/19 09:27 Dose: 20 mg Documented by: Sodium Bicarbonate (Sodium Bicarbonate) 1,300 mg PO BID [facility] Last Admin: 08/06/19 09:27 Dose: 1,300 mg Documented by: Sodium Chloride (Sodium Chloride Flush Syringe 10 Ml) 10 ml IV PRN PRN PRN Reason: LINE FLUSH Last Admin: 08/04/19 06:17 Dose: 10 ml Documented by: Sodium Chloride (Sodium Chloride Flush Syringe 10 Ml) 10 ml IV BID [facility] Last Admin: 08/06/19 09:30 Dose: 10 ml Documented by: Review of Systems All systems: negative Exam - Vital Signs Vital signs: Vital Signs Pulse Resp 113 H 28 H 08/01/19 18:40 08/01/19 18:40 - General Appearance General appearance: well-developed, well-nourished EENT: other (poor dentition) Respiratory: Decreased Breath Sounds (right base o/w clear) Heart: regular, S1S2 Gastrointestinal: Present: normal. Absent: tenderness, distended Neurologic: alert and oriented x3 Musculoskeletal: Present: other (no edema; left foot/ankle bandaged) Psychiatric: cooperative Results - Lab Results 08/06/19 06:07 08/06/19 06:07 Most recent lab results Calcium 8.7 mg/dL (8.4-10.2) 08/06/19 06:07 Assessment and Plan Impression: * Stage III chronic kidney disease --Baseline SCr 1.6-1.8mg/dL * Pleural effusion s/p thoracentesis, chest tube placement * Nonischemic cardiomyopathy --TTE (Nov 2018) EF 15-20% * Atrial fibrillation * Chronic systolic heart failure * Chronic hypoxic respiratory failure * Medical noncompliance Plan: * Renal function is stable * Continue IV diuresis * Rate control and anticoagulation per cardiology * Strict I/O * Dose medications for renal function * Avoid nephrotoxins
[2019-08-06] MEDS: DIGOXIN 0.25 MG TAB PO SCH (17:11)
[2019-08-07] MEDS: MORPHINE 2 MG/1 ML INJ IV PRN (03:32)
[2019-08-07] MEDS: FUROSEMIDE 40 MG/4 ML INJ IV SCH ×2 (05:42→18:40)
--- NOTE | 2019-08-07 09:14 | Progress Note ---
Assessment and Plan Recurrent Pleural effusion - management per pulmonary recommendations. Continue goal directed medical therapy for treatment of cardiomyopathy s/p thoracentesis Chronic renal failure - mangement per primary LLE ulcer - wound care Chronic atrial fibrillation on Eliquis for oral anticoagulation as an outpatient rate controlled with metoprolol and digoxin Continue rate control strategy for his atrial fibrillation Hx of Nonischemic cardiomyopathy EF 15-20% by echo 11/2018 Fluid/sodium restriction Continue medical therapy for chronic systolic heart failure gentle diuresis as tolerated Presence of the ICD recent interrogation revealed a normal functioning device Essential hypertension Type 2 diabetes mellitus Chronic obstructive pulmonary disease Subjective Date of service: 08/07/19 Interval history: No acute events. Resting comfortably. No chest pain. Objective Vital Signs Temp Pulse Resp BP Pulse Ox 08/07/19 08:33 98 08/07/19 04:22 58 L 20 101/64 93 08/07/19 03:32 18 08/07/19 00:00 76 98 08/06/19 23:26 98.5 F 08/06/19 23:24 74 18 113/80 95 08/06/19 22:58 18 08/06/19 22:30 55 L 109/73 08/06/19 22:29 55 L 109/73 08/06/19 21:11 98.3 F 55 L 18 109/73 93 08/06/19 20:42 100 08/06/19 20:19 72 08/06/19 11:32 98.1 F 64 18 124/91 95 08/06/19 10:00 64 - Physical Examination General: No Apparent Distress HEENT: Positive: PERRL Neck: Positive: trachea midline Neuro: Positive: Grossly Intact Extremities: Present: edema, Other (LLE ulcer)
[2019-08-07 09:19] LABS: Hemoglobin 11.6 gm/dl (11.8-15.2); Mean Corpuscular HGB Conc 32 % (32-34); Mean Corpuscular Volume 89 fl (84-94); Platelet Count 208 K/mm3 (140-440); Red Blood Count 4.03 M/mm3 (3.65-5.03); Red Cell Distribution Width 18.8 % (13.2-15.2)
[2019-08-07 09:33] LABS: Calcium 8.8 mg/dL (8.4-10.2)
[2019-08-07] MEDS: INSULIN LISPRO 100 UNIT/ML SUB-Q SCH ×4 (10:39→22:04)
[2019-08-07] MEDS: METOPROLOL TARTRATE 25 MG TAB PO SCH ×3 (10:47→22:05)
[2019-08-07] MEDS: METOPROLOL TARTRATE 50 MG TAB PO SCH ×3 (10:47→22:04)
[2019-08-07] MEDS: NICOTINE 14 MG/24 HR PATCH TD SCH (10:48)
[2019-08-07] MEDS: SODIUM BICARBONATE 650 MG TAB PO SCH ×2 (10:48→22:03)
[2019-08-07] MEDS: ASPIRIN 81 MG TAB CHEW PO SCH (10:48)
[2019-08-07] MEDS: predniSONE 20 MG TAB PO SCH (10:48)
[2019-08-07] MEDS: DOCUSATE SODIUM 100 MG CAP PO SCH ×2 (10:48→22:03)
[2019-08-07] MEDS: APIXABAN 5 MG TAB PO SCH ×2 (10:48→22:04)
[2019-08-07] MEDS: FAMOTIDINE 20 MG TAB PO SCH ×2 (10:49→22:03)
[2019-08-07] MEDS: oxyCODONE 5 MG TAB PO PRN (11:02)
[2019-08-07] MEDS: oxyCODONE /ACETAMINOPHEN 5-325MG TAB PO PRN ×2 (11:02→20:08)
--- NOTE | 2019-08-07 12:31 | Progress Note ---
Assessment and Plan Assessment and plan: Recurrent Pleural effusion -s/p right chest tube placed . Continue per pulmonology. Acute on Chronic systolic heart failure. Fluid/sodium restriction. Continue medical therapy for chronic systolic heart failure. Cardiology consulted Acute on Chronic renal failure. Consult Nephrology for further eval LLE ulcer. Wound care Chronic atrial fibrillation Cont. on Eliquis for oral anticoagulation as an outpatient rate controlled with metoprolol and digoxin Hx of Nonischemic cardiomyopathy EF 15-20% by echo 11/2018 Presence of the ICD recent interrogation revealed a normal functioning device hypertension. Cont current regimen Type 2 diabetes mellitus. Accuchecks and SSRI Chronic obstructive pulmonary disease. Stable MSSA left ulcer will consult ID Discontinue Levaquin since not sensitive History Interval history: Shortness of breath Hospitalist Physical - Physical exam Narrative exam: Gen: Not in acute distress, lying in bed HEENT: Normocephalic, atraumatic Neck: supple, no JVD Heart: S1 and S2 reg, no murmurs, rubs or gallop Lungs: Chest tube on right hemithorax Abd: soft, NT, non distended normal BS Ext: No edema, no clubbing, no cyanosis Neuro: Awake, alert, oriented X 3, moves all ext - Constitutional Vitals: Temp Pulse Resp BP Pulse Ox 98.5 F 54 L 20 111/72 93 08/06/19 23:26 08/07/19 08:36 08/07/19 04:22 08/07/19 08:36 08/07/19 08:36 General appearance: Present: no acute distress Results - Labs CBC & Chem 7: 08/08/19 08:27 08/08/19 08:27 Labs: Laboratory Last Values WBC 10.5 K/mm3 (4.5-11.0) 08/07/19 08:56 RBC 4.03 M/mm3 (3.65-5.03) 08/07/19 08:56 Hgb 11.6 gm/dl (11.8-15.2) L 08/07/19 08:56 Hct 36.0 % (35.5-45.6) 08/07/19 08:56 MCV 89 fl (84-94) 08/07/19 08:56 MCH 29 pg (28-32) 08/07/19 08:56 MCHC 32 % (32-34) 08/07/19 08:56 RDW 18.8 % (13.2-15.2) H 08/07/19 08:56 Plt Count 208 K/mm3 (140-440) 08/07/19 08:56 Lymph % (Auto) 10.3 % (13.4-35.0) L 08/06/19 06:07 Payne % (Auto) 7.7 % (0.0-7.3) H 08/06/19 06:07 Eos % (Auto) 0.3 % (0.0-4.3) 08/06/19 06:07 Baso % (Auto) 0.4 % (0.0-1.8) 08/06/19 06:07 Lymph # 1.2 K/mm3 (1.2-5.4) 08/06/19 06:07 Payne # 0.9 K/mm3 (0.0-0.8) H 08/06/19 06:07 Eos # 0.0 K/mm3 (0.0-0.4) 08/06/19 06:07 Baso # 0.0 K/mm3 (0.0-0.1) 08/06/19 06:07 Add Manual Diff Complete 08/05/19 05:16 Total Counted 100 08/05/19 05:16 Seg Neutrophils % 81.3 % (40.0-70.0) H 08/06/19 06:07 Seg Neuts % (Manual) 89.0 % (40.0-70.0) H 08/05/19 05:16 Band Neutrophils % 0 % 08/05/19 05:16 Lymphocytes % (Manual) 5.0 % (13.4-35.0) L 08/05/19 05:16 Reactive Lymphs % (Man) 0 % 08/05/19 05:16 Monocytes % (Manual) 6.0 % (0.0-7.3) 08/05/19 05:16 Eosinophils % (Manual) 0 % (0.0-4.3) 08/05/19 05:16 Basophils % (Manual) 0 % (0.0-1.8) 08/05/19 05:16 Metamyelocytes % 0 % 08/05/19 05:16 Myelocytes % 0 % 08/05/19 05:16 Promyelocytes % 0 % 08/05/19 05:16 Blast Cells % 0 % 08/05/19 05:16 Nucleated RBC % Not Reportable 08/05/19 05:16 Seg Neutrophils # 9.7 K/mm3 (1.8-7.7) H 08/06/19 06:07 Seg Neutrophils # Man 8.3 K/mm3 (1.8-7.7) H 08/05/19 05:16 Band Neutrophils # 0.0 K/mm3 08/05/19 05:16 Lymphocytes # (Manual) 0.5 K/mm3 (1.2-5.4) L 08/05/19 05:16 Abs React Lymphs (Man) 0.0 K/mm3 08/05/19 05:16 Monocytes # (Manual) 0.6 K/mm3 (0.0-0.8) 08/05/19 05:16 Eosinophils # (Manual) 0.0 K/mm3 (0.0-0.4) 08/05/19 05:16 Basophils # (Manual) 0.0 K/mm3 (0.0-0.1) 08/05/19 05:16 Metamyelocytes # 0.0 K/mm3 08/05/19 05:16 Myelocytes # 0.0 K/mm3 08/05/19 05:16 Promyelocytes # 0.0 K/mm3 08/05/19 05:16 Blast Cells # 0.0 K/mm3 08/05/19 05:16 WBC Morphology Not Reportable 08/05/19 05:16 Hypersegmented Neuts Not Reportable 08/05/19 05:16 Hyposegmented Neuts Not Reportable 08/05/19 05:16 Hypogranular Neuts Not Reportable 08/05/19 05:16 Smudge Cells Not Reportable 08/05/19 05:16 Toxic Granulation Not Reportable 08/05/19 05:16 Toxic Vacuolation Not Reportable 08/05/19 05:16 Dohle Bodies Not Reportable 08/05/19 05:16 Pelger-Huet Anomaly Not Reportable 08/05/19 05:16 Cathie Rods Not Reportable 08/05/19 05:16 Platelet Estimate Consistent w auto 08/05/19 05:16 Clumped Platelets Not Reportable 08/05/19 05:16 Plt Clumps, EDTA Not Reportable 08/05/19 05:16 Large Platelets Not Reportable 08/05/19 05:16 Giant Platelets Not Reportable 08/05/19 05:16 Platelet Satelliting Not Reportable 08/05/19 05:16 Plt Morphology Comment Not Reportable 08/05/19 05:16 RBC Morphology Not Reportable 08/05/19 05:16 Dimorphic RBCs Not Reportable 08/05/19 05:16 Polychromasia Not Reportable 08/05/19 05:16 Hypochromasia Not Reportable 08/05/19 05:16 Poikilocytosis Not Reportable 08/05/19 05:16 Anisocytosis Not Reportable 08/05/19 05:16 Microcytosis Not Reportable 08/05/19 05:16 Macrocytosis Not Reportable 08/05/19 05:16 Spherocytes Not Reportable 08/05/19 05:16 Pappenheimer Bodies Not Reportable 08/05/19 05:16 Sickle Cells Not Reportable 08/05/19 05:16 Target Cells Not Reportable 08/05/19 05:16 Tear Drop Cells Not Reportable 08/05/19 05:16 Ovalocytes Not Reportable 08/05/19 05:16 Stomatocytes Rare 08/05/19 05:16 Helmet Cells Not Reportable 08/05/19 05:16 [place] Bodies Not Reportable 08/05/19 05:16 [place] Rings Not Reportable 08/05/19 05:16 [place] Cells Rare 08/05/19 05:16 Bite Cells Not Reportable 08/05/19 05:16 Crenated Cell Not Reportable 08/05/19 05:16 Elliptocytes Few 08/05/19 05:16 Acanthocytes (Spur) Not Reportable 08/05/19 05:16 Rouleaux Not Reportable 08/05/19 05:16 Hemoglobin C Crystals Not Reportable 08/05/19 05:16 Schistocytes Not Reportable 08/05/19 05:16 Malaria parasites Not Reportable 08/05/19 05:16 [place] Bodies Not Reportable 08/05/19 05:16 Hem Pathologist Commnt No 08/05/19 05:16 PT 13.9 Sec. (12.2-14.9) 08/01/19 18:49 INR 1.08 (0.87-1.13) 08/01/19 18:49 APTT 30.8 Sec. (24.2-36.6) 08/01/19 18:49 Sodium 137 mmol/L (137-145) 08/07/19 08:56 Potassium 4.3 mmol/L (3.6-5.0) 08/07/19 08:56 Chloride 95.0 mmol/L (98-107) L 08/07/19 08:56 Carbon Dioxide 28 mmol/L (22-30) 08/07/19 08:56 Anion Gap 18 mmol/L 08/07/19 08:56 BUN 42 mg/dL (9-20) H 08/07/19 08:56 Creatinine 1.8 mg/dL (0.8-1.5) H 08/07/19 08:56 Estimated GFR 48 ml/min 08/07/19 08:56 BUN/Creatinine Ratio 23 % 08/07/19 08:56 Glucose 84 mg/dL (75-100) 08/07/19 08:56 POC Glucose 84 (70-105) 08/07/19 08:45 Hemoglobin A1c 5.9 % (4-6) 08/02/19 07:49 Calcium 8.8 mg/dL (8.4-10.2) 08/07/19 08:56 Total Bilirubin 1.20 mg/dL (0.1-1.2) 08/03/19 04:57 Direct Bilirubin 1.0 mg/dL (0-0.2) H 08/01/19 18:49 Indirect Bilirubin 0.8 mg/dL 08/01/19 18:49 AST 21 units/L (5-40) 08/03/19 04:57 ALT 20 units/L (7-56) 08/03/19 04:57 Alkaline Phosphatase 195 units/L (35-129) H 08/03/19 04:57 Lactate Dehydrogenase 199 units/L (91-180) H 08/03/19 17:01 Troponin T 0.054 ng/mL (0.00-0.029) H 08/02/19 00:28 NT-Pro-B Natriuret Pep 73105 pg/mL (0-900) H 08/01/19 18:49 Total Protein 6.6 g/dL (6.3-8.2) 08/03/19 04:57 Albumin 2.9 g/dL (3.9-5) L 08/03/19 04:57 Albumin/Globulin Ratio 0.8 % 08/03/19 04:57 Triglycerides 69 mg/dL (2-149) 08/01/19 18:49 Cholesterol 131 mg/dL (50-199) 08/01/19 18:49 LDL Cholesterol Direct 88 mg/dL (50-130) 08/01/19 18:49 HDL Cholesterol 41 mg/dL (40-59) 08/01/19 18:49 Cholesterol/HDL Ratio 3.19 % 08/01/19 18:49 Active Medications - Current Medications Current Medications: Generic Name Dose Route Start Last Admin Trade Name Freq PRN Reason Stop Dose Admin Acetaminophen 650 mg 08/06/19 12:38 Tylenol PO Q4H PRN Pain MILD(1-3)/Fever >100.5/TRUJILLO Apixaban 5 mg 08/02/19 10:00 08/07/19 10:48 Eliquis PO 5 mg BID SOUMYA Administration Protocol Aspirin 81 mg 08/02/19 10:00 08/07/19 10:48 Baby Aspirin PO 81 mg QDAY SOUMYA Administration Atorvastatin Calcium 40 mg 08/02/19 22:00 08/06/19 22:29 Lipitor PO 40 mg QHS SOUMYA Administration Digoxin 0.25 mg 08/04/19 17:00 08/06/19 17:11 Lanoxin PO 0.25 mg Q48H SOUMYA Administration Docusate Sodium 100 mg 08/02/19 10:00 08/07/19 10:48 Colace PO 100 mg BID SOUMYA Administration Famotidine 20 mg 08/02/19 10:00 08/07/19 10:49 Pepcid PO 20 mg BID SOUMYA Administration Furosemide 40 mg 08/02/19 06:00 08/07/19 05:42 Lasix IV Not Given 0600,1800 SOUMYA Hydromorphone HCl 0.5 mg 08/02/19 01:32 08/06/19 17:45 Dilaudid IV 0.5 mg Q4H PRN Administration Pain , Severe (7-10) Insulin Human Lispro 0 unit 08/02/19 07:30 08/07/19 10:39 Humalog SUB-Q Not Given ACHS [facility] Protocol Metoclopramide HCl 10 mg 08/02/19 04:12 Reglan IV Q6H PRN Nausea And Vomiting Metoprolol Tartrate 50 mg 08/02/19 08:00 08/07/19 10:47 Metoprolol PO Not Given TID [facility] Metoprolol Tartrate 25 mg 08/02/19 08:00 08/07/19 10:47 Metoprolol PO Not Given TID SOUMYA Morphine Sulfate 2 mg 08/06/19 12:04 08/07/19 03:32 Morphine IV 2 mg Q4H PRN Administration Pain, Moderate (4-6) Nicotine 14 mg 08/02/19 10:00 08/07/19 10:48 Habitrol TD 14 mg QDAY SOUMYA Administration Ondansetron HCl 4 mg 08/02/19 04:12 Zofran IV Q8H PRN Nausea And Vomiting Oxycodone HCl 5 mg 08/02/19 04:18 08/07/19 11:02 Roxicodone PO 5 mg Q6H PRN Administration Pain, (7-10) Oxycodone/Acetaminophen 1 tab 08/02/19 04:09 08/07/19 11:02 Percocet 5/325 PO 1 tab Q6H PRN Administration Pain , Severe (7-10) Prednisone 20 mg 08/02/19 10:00 08/07/19 10:48 Deltasone PO 20 mg QDAY SOUMYA Administration Sodium Bicarbonate 1,300 mg 08/02/19 10:00 08/07/19 10:48 Sodium Bicarbonate PO 1,300 mg BID SOUMYA Administration Sodium Chloride 10 ml 08/02/19 04:12 08/04/19 06:17 Sodium Chloride Flush Syringe 10 Ml IV 10 ml PRN PRN Administration LINE FLUSH Sodium Chloride 10 ml 08/02/19 10:00 08/07/19 10:49 Sodium Chloride Flush Syringe 10 Ml IV 10 ml BID SOUMYA Administration Nutrition/Malnutrition Assess - Dietary Evaluation Nutrition/Malnutrition Findings: Nutrition Notes Start: 08/06/19 11:55 Freq: Status: Active Protocol: Document 08/06/19 11:55 CT (Rec: 08/06/19 12:16 CT [id number]) Co-Sign 08/06/19 11:55 LP Nutrition Notes Need for Assessment generated from: LOS Initial or Follow up Assessment Current Diagnosis COPD,Diabetes,Hypertension, Heart Failure Other Pertinent Diagnosis Renal failure, A-fib, staph infection, Plueral effusion, severe edema Current Diet Consistent CHO Labs/Tests BUN 41 Creatinine 1.8 Pertinent Medications Lasix Humalog Height 6 ft 1 in Weight 100 kg Usual Body Weight 73.482 kg [place] Body Weight (kg) 83.63 BMI 29.0 Weight change and time frame wt gain likely d/t severe edema Weight Status Overweight Subjective/Other Information LOS screen. Pt stated his doctor approved double portions and glucerna TID. Order was placed for double portions and glucerna. Discussed slightly liberalizing diet if blood glucose levels stay stable. Pt stated a 30 lb wt loss d/t fluid from pleural effusion. Pt is allergic to strawberries . Noted temporal and orbital wasting. Burn Absent Trauma Absent GI Symptoms None Current % PO Good (75-100%) Minimum of two criteria Yes Body Fat Depletion Moderate depletion (severe) Muscle Mass Moderate Depletion (severe) Fluid Accumulation Moderate to Severe (severe) #1 Nutrition Diagnosis Malnutrition Etiology chronic illness As Evidenced by Signs and Symptoms fat and muscle wasting, +4 pitting edema per physical assessment Is patient on ventilator? No Is Patient Ambulatory and/or Out of Bed Yes REE-([facility]-ambulatory/OOB) [ 2462.044 [id number]] Calculation Used for Recommendations [facility] Additional Notes Protein: 109-137 g/kg/day (1.2 -1.5 g/kg/day AdBW 91.8kg) Fluid: per MD Nutrition Intervention Change Diet Order: Continue Consistent CHO Add Supplement/Snack (indicate name/kcal Add glucerna Vanilla and /protein ) Chocolate TID Provides kCal: 660 Provides Protein (gm) 30 Goal #1 Meet >75% of energy and protein needs Anticipated Discharge Needs: Consistent CHO Follow-Up By: 08/09/19 Additional Comments Follow up for PO/ONS intakes.
--- NOTE | 2019-08-07 12:33 | Progress Note ---
Assessment and Plan Impression: * Stage III chronic kidney disease --Baseline SCr 1.6-1.8mg/dL * Pleural effusion, recurrent - s/p thoracentesis, s/p right chest tube placement * Nonischemic cardiomyopathy --TTE (Nov 2018) EF 15-20% * Atrial fibrillation * Chronic systolic heart failure * Chronic hypoxic respiratory failure * Medical noncompliance Plan: * Renal function is stable * Continue IV diuresis - responding well to diuretics, appx 3.3 L yesterday * Rate control and anticoagulation per cardiology * Chest tube management per IR/pulmonary medicine * Strict I/O * Dose medications for renal function * Avoid nephrotoxins Subjective Date of service: 08/07/19 Interval history: Patient has no complaints today Objective - Vital Signs Vital signs: Vital Signs - 12hr 08/07/19 08/07/19 08/07/19 03:32 04:22 08:33 Pulse Rate 58 L Respiratory 18 20 Rate Blood Pressure 101/64 O2 Sat by Pulse 93 98 Oximetry 08/07/19 08:36 Pulse Rate 54 L Respiratory Rate Blood Pressure 111/72 O2 Sat by Pulse 93 Oximetry - General Appearance General appearance: well-developed, well-nourished EENT: ATNC, other (poor dentition) Respiratory: Present: Decreased Breath Sounds Cardiology: regular, S1S2 Gastrointestinal: normal, no tenderness, no distended Integumentary: other (Left ankle/leg bandaged) Neurologic: no focal deficit Musculoskeletal: other (no edema) Psychiatric: cooperative - Lab 08/07/19 08:56 08/07/19 08:56 Most recent lab results Calcium 8.8 mg/dL (8.4-10.2) 08/07/19 08:56 Medications & Allergies - Medications Allergies/Adverse Reactions: Allergies Penicillins Allergy (Verified 03/05/19 22:41) Itching strawberry Allergy (Verified 03/05/19 22:41) Hives Home Medications: Home Medications Medication Instructions Recorded Confirmed Last Taken Type Aspirin [Aspirin BABY CHEW TAB] 81 mg PO QDAY #30 tab.chew 03/14/19 08/02/19 07/19/19 15:57 Rx Acetaminophen [Acetaminophen TAB] 2 tab PO Q4H PRN #15 tablet 06/25/19 08/02/19 07/19/19 15:58 Rx Apixaban [Eliquis] 1 tab PO BID #60 tablet 07/24/19 08/02/19 Unknown Rx AtorvaSTATin [Lipitor] 40 mg PO QHS #30 tablet 07/24/19 08/02/19 Unknown Rx Colchicine 0.6 mg PO QDAY #10 capsule 07/24/19 08/02/19 Unknown Rx Digoxin [Lanoxin] 0.25 mg PO DAILY@1700 #30 tablet 07/24/19 08/02/19 Unknown Rx Docusate Sodium [Colace CAP] 100 mg PO BID capsule 07/24/19 08/02/19 Unknown Rx Metoprolol [Lopressor TAB] 75 mg PO TID #90 tablet 07/24/19 08/02/19 Unknown Rx Nicotine [Habitrol] 14 mg TD QDAY #30 patch 07/24/19 08/02/19 Unknown Rx Oxycodone HCl/Acetaminophen 1 each PO Q6HR PRN #20 tablet 07/24/19 08/02/19 Unknown Rx [Percocet 10/325 mg] Sodium Bicarbonate 1,300 mg PO BID #90 tablet 07/24/19 08/02/19 Unknown Rx Torsemide [Demadex] 100 mg PO DAILY@0600 #30 tablet 07/24/19 08/02/19 Unknown Rx guaiFENesin ER [Mucinex ER] 600 mg PO BID #60 tablet 07/24/19 08/02/19 Unknown Rx oxyCODONE /ACETAMINOPHEN [Percocet 1 tab PO Q6H PRN tablet 07/24/19 08/02/19 Unknown Rx 5/325 mg] predniSONE [Deltasone] 20 mg PO QDAY #7 tablet 07/24/19 08/02/19 Unknown Rx Active Medications: Generic Name Dose Route Start Last Admin Trade Name Freq PRN Reason Stop Dose Admin Acetaminophen 650 mg 08/06/19 12:38 Tylenol PO Q4H PRN Pain MILD(1-3)/Fever >100.5/TRUJILLO Apixaban 5 mg 08/02/19 10:00 08/07/19 10:48 Eliquis PO 5 mg BID SOUMYA Administration Protocol Aspirin 81 mg 08/02/19 10:00 08/07/19 10:48 Baby Aspirin PO 81 mg QDAY SOUMYA Administration Atorvastatin Calcium 40 mg 08/02/19 22:00 08/06/19 22:29 Lipitor PO 40 mg QHS SOUMYA Administration Digoxin 0.25 mg 08/04/19 17:00 08/06/19 17:11 Lanoxin PO 0.25 mg Q48H [facility] Administration Docusate Sodium 100 mg 08/02/19 10:00 08/07/19 10:48 Colace PO 100 mg BID [facility] Administration Famotidine 20 mg 08/02/19 10:00 08/07/19 10:49 Pepcid PO 20 mg BID [facility] Administration Furosemide 40 mg 08/02/19 06:00 08/07/19 05:42 Lasix IV Not Given 0600,1800 [facility] Hydromorphone HCl 0.5 mg 08/02/19 01:32 08/06/19 17:45 Dilaudid IV 0.5 mg Q4H PRN Administration Pain , Severe (7-10) Insulin Human Lispro 0 unit 08/02/19 07:30 08/07/19 10:39 Humalog SUB-Q Not Given [facility] Protocol Metoclopramide HCl 10 mg 08/02/19 04:12 Reglan IV Q6H PRN Nausea And Vomiting Metoprolol Tartrate 50 mg 08/02/19 08:00 08/07/19 10:47 Metoprolol PO Not Given TID [facility] Metoprolol Tartrate 25 mg 08/02/19 08:00 08/07/19 10:47 Metoprolol PO Not Given TID [facility] Morphine Sulfate 2 mg 08/06/19 12:04 08/07/19 03:32 Morphine IV 2 mg Q4H PRN Administration Pain, Moderate (4-6) Nicotine 14 mg 08/02/19 10:00 08/07/19 10:48 Habitrol TD 14 mg QDAY [facility] Administration Ondansetron HCl 4 mg 08/02/19 04:12 Zofran IV Q8H PRN Nausea And Vomiting Oxycodone HCl 5 mg 08/02/19 04:18 08/07/19 11:02 Roxicodone PO 5 mg Q6H PRN Administration Pain, (7-10) Oxycodone/Acetaminophen 1 tab 08/02/19 04:09 08/07/19 11:02 Percocet 5/325 PO 1 tab Q6H PRN Administration Pain , Severe (7-10) Prednisone 20 mg 08/02/19 10:00 08/07/19 10:48 Deltasone PO 20 mg QDAY SOUMYA Administration Sodium Bicarbonate 1,300 mg 08/02/19 10:00 08/07/19 10:48 Sodium Bicarbonate PO 1,300 mg BID SOUMYA Administration Sodium Chloride 10 ml 08/02/19 04:12 08/04/19 06:17 Sodium Chloride Flush Syringe 10 Ml IV 10 ml PRN PRN Administration LINE FLUSH Sodium Chloride 10 ml 08/02/19 10:00 08/07/19 10:49 Sodium Chloride Flush Syringe 10 Ml IV 10 ml BID SOUMYA Administration
--- NOTE | 2019-08-07 18:24 | Progress Note ---
Assessment and Plan Patient alert, awake and resting 2 litres O2. Patient has right chest tube placement. Chest tube drained significant amount of fluid. Recommend to send pleural fluid to cell count, LDH, Protein, Glucose, Amylase, Cytology, gram stain, C&S , AFB and fungus. Patient says breathing better. O2 saturation 97%. - Patient Problems (1) Acute and chronic respiratory failure Current Visit: No Status: Acute Qualifiers: Respiratory failure complication: hypoxia Qualified Code(s): J96.21 - Acute and chronic respiratory failure with hypoxia Plan to address problem: 1. O2 2 liters via nasal cannula. 2. albuterol and atrovent aerosol treatments q 6 hours 3. continue prednisone 4. continue levoquin 5. continue apixaban 6. Continue famotidine (2) CHF exacerbation Current Visit: Yes Status: Acute Plan to address problem: Pt is on IV lasix and management as per cardiology (3) Chest pain Current Visit: Yes Status: Acute Plan to address problem: Management as per cardiology (4) Chronic atrial fibrillation Current Visit: Yes Status: Acute Plan to address problem: Pt is on apixaban. Management as per cardiology. (5) Acute kidney injury superimposed on chronic kidney disease Current Visit: No Status: Acute Plan to address problem: management as per nephrology (6) COPD (chronic obstructive pulmonary disease) Current Visit: No Status: Acute Qualifiers: Chronic bronchitis type: mixed simple and mucopurulent Plan to address problem: 1. O2 2 liters via nasal cannula. 2. albuterol and atrovent aerosol treatments q 6 hours 3. continue prednisone 4. continue levoquin 5. continue apixaban 6. Continue famotidine 7. PFTs an out patient (7) Recurrent right pleural effusion Current Visit: No Status: Acute Plan to address problem: Patient has right chest tube placement. Patient draining clear fluid. ecommend to send pleural fluid to cell count, LDH, Protein, Glucose, Amylase, Cytology, gram stain, C&S , AFB and fungus. Subjective Date of service: 08/07/19 Interval history: Patient alert, awake and resting 2 litres O2. Patient has right chest tube placement. Chest tube drained significant amount of fluid. Recommend to send pleural fluid to cell count, LDH, Protein, Glucose, Amylase, Cytology, gram stain, C&S , AFB and fungus. Patient says breathing better. O2 saturation 97%. Objective Vital Signs - 12hr 08/07/19 08/07/19 08/07/19 08:33 08:36 10:00 Pulse Rate 54 L 69 Blood Pressure 111/72 O2 Sat by Pulse 98 93 Oximetry Constitutional: no acute distress, alert Eyes: non-icteric Ascultation: Right: diminished breath sounds (base) Cardiovascular: irregular rhythm Gastrointestinal: normoactive bowel sounds, soft, non-tender Integumentary: normal, other (Wound on right lower leg.) Extremities: no cyanosis, edema (bilateral) Neurologic: non-focal exam, pupils equal and round, CN II-XII normal Psychiatric: anxious CBC and BMP: 08/07/19 08:56 08/07/19 08:56 ABG, PT/INR, D-dimer: PT/INR, D-dimer PT 13.9 Sec. (12.2-14.9) 08/01/19 18:49 INR 1.08 (0.87-1.13) 08/01/19 18:49 Abnormal lab findings: Abnormal Labs 08/01/19 08/01/19 08/01/19 18:49 18:49 18:49 WBC Hgb 11.6 L Hct RDW 19.3 H Lymph % (Auto) 10.0 L [place] % (Auto) 9.5 H Lymph # 1.0 L [place] # 0.9 H Seg Neutrophils % 79.2 H Seg Neuts % (Manual) Lymphocytes % (Manual) Seg Neutrophils # Seg Neutrophils # Man Lymphocytes # (Manual) Sodium Chloride Carbon Dioxide 21 L BUN Creatinine Glucose POC Glucose Calcium Total Bilirubin 1.80 H Direct Bilirubin 1.0 H Alkaline Phosphatase 212 H Lactate Dehydrogenase Troponin T 0.044 H NT-Pro-B Natriuret Pep 11578 H Albumin 3.4 L 08/01/19 08/02/19 08/02/19 21:07 00:28 10:14 WBC Hgb Hct RDW Lymph % (Auto) [place] % (Auto) Lymph # [place] # Seg Neutrophils % Seg Neuts % (Manual) Lymphocytes % (Manual) Seg Neutrophils # Seg Neutrophils # Man Lymphocytes # (Manual) Sodium Chloride Carbon Dioxide BUN Creatinine Glucose POC Glucose 115 H Calcium Total Bilirubin Direct Bilirubin Alkaline Phosphatase Lactate Dehydrogenase Troponin T 0.049 H 0.054 H NT-Pro-B Natriuret Pep Albumin 08/02/19 08/02/1908/02/19 11:18 16:04 21:51 WBC Hgb Hct RDW Lymph % (Auto) [place] % (Auto) Lymph # [place] # Seg Neutrophils % Seg Neuts % (Manual) Lymphocytes % (Manual) Seg Neutrophils # Seg Neutrophils # Man Lymphocytes # (Manual) Sodium Chloride Carbon Dioxide BUN Creatinine Glucose POC Glucose 144 H 126 H 130 H Calcium Total Bilirubin Direct Bilirubin Alkaline Phosphatase Lactate Dehydrogenase Troponin T NT-Pro-B Natriuret Pep Albumin 08/03/19 08/03/19 08/03/19 04:57 04:57 16:36 WBC Hgb 11.0 L Hct 34.3 L RDW 19.4 H Lymph % (Auto) 9.5 L [place] % (Auto) Lymph # 0.9 L [place] # Seg Neutrophils % 83.0 H Seg Neuts % (Manual) Lymphocytes % (Manual) Seg Neutrophils # 8.2 H Seg Neutrophils # Man Lymphocytes # (Manual) Sodium Chloride Carbon Dioxide BUN 30 H Creatinine 2.1 H D Glucose 140 H POC Glucose 142 H Calcium 8.1 L Total Bilirubin Direct Bilirubin Alkaline Phosphatase 195 H Lactate Dehydrogenase Troponin T NT-Pro-B Natriuret Pep Albumin 2.9 L 08/03/19 08/03/19 08/04/19 17:01 21:12 11:31 WBC Hgb Hct RDW Lymph % (Auto) [place] % (Auto) Lymph # [place] # Seg Neutrophils % Seg Neuts % (Manual) Lymphocytes % (Manual) Seg Neutrophils # Seg Neutrophils # Man Lymphocytes # (Manual) Sodium Chloride Carbon Dioxide BUN Creatinine Glucose POC Glucose 158 H 59 L Calcium Total Bilirubin Direct Bilirubin Alkaline Phosphatase Lactate Dehydrogenase 199 H Troponin T NT-Pro-B Natriuret Pep Albumin 08/04/19 08/04/19 08/05/19 16:07 21:05 05:16 WBC Hgb 10.9 L Hct 34.0 L RDW 19.4 H Lymph % (Auto) [place] % (Auto) Lymph # [place] # Seg Neutrophils % Seg Neuts % (Manual) 89.0 H Lymphocytes % (Manual) 5.0 L Seg Neutrophils # Seg Neutrophils # Man 8.3 H Lymphocytes # (Manual) 0.5 L Sodium Chloride Carbon Dioxide BUN Creatinine Glucose POC Glucose 174 H 118 H Calcium Total Bilirubin Direct Bilirubin Alkaline Phosphatase Lactate Dehydrogenase Troponin T NT-Pro-B Natriuret Pep Albumin 08/05/19 08/05/19 08/06/19 05:16 20:35 06:07 WBC 11.9 H Hgb 11.4 L Hct 35.0 L RDW 19.3 H Lymph % (Auto) 10.3 L [place] % (Auto) 7.7 H Lymph # [place] # 0.9 H Seg Neutrophils % 81.3 H Seg Neuts % (Manual) Lymphocytes % (Manual) Seg Neutrophils # 9.7 H Seg Neutrophils # Man Lymphocytes # (Manual) Sodium 136 L Chloride Carbon Dioxide BUN 38 H Creatinine 1.9 H Glucose 160 H POC Glucose 125 H Calcium Total Bilirubin Direct Bilirubin Alkaline Phosphatase Lactate Dehydrogenase Troponin T NT-Pro-B Natriuret Pep Albumin 08/06/19 08/06/19 08/06/19 06:07 11:44 15:40 WBC Hgb Hct RDW Lymph % (Auto) [place] % (Auto) Lymph # [place] # Seg Neutrophils % Seg Neuts % (Manual) Lymphocytes % (Manual) Seg Neutrophils # Seg Neutrophils # Man Lymphocytes # (Manual) Sodium Chloride 97.5 L Carbon Dioxide BUN 41 H Creatinine 1.8 H Glucose POC Glucose 123 H 154 H Calcium Total Bilirubin Direct Bilirubin Alkaline Phosphatase Lactate Dehydrogenase Troponin T NT-Pro-B Natriuret Pep Albumin 08/06/19 08/07/19 08/07/19 21:22 08:56 08:56 WBC Hgb 11.6 L Hct RDW 18.8 H Lymph % (Auto) [place] % (Auto) Lymph # [place] # Seg Neutrophils % Seg Neuts % (Manual) Lymphocytes % (Manual) Seg Neutrophils # Seg Neutrophils # Man Lymphocytes # (Manual) Sodium Chloride 95.0 L Carbon Dioxide BUN 42 H Creatinine 1.8 H Glucose POC Glucose 108 H Calcium Total Bilirubin Direct Bilirubin Alkaline Phosphatase Lactate Dehydrogenase Troponin T NT-Pro-B Natriuret Pep Albumin 08/07/19 08/07/19 12:39 16:31 WBC Hgb Hct RDW Lymph % (Auto) [place] % (Auto) Lymph # [place] # Seg Neutrophils % Seg Neuts % (Manual) Lymphocytes % (Manual) Seg Neutrophils # Seg Neutrophils # Man Lymphocytes # (Manual) Sodium Chloride Carbon Dioxide BUN Creatinine Glucose POC Glucose 110 H 132 H Calcium Total Bilirubin Direct Bilirubin Alkaline Phosphatase Lactate Dehydrogenase Troponin T NT-Pro-B Natriuret Pep Albumin Chest x-ray: report reviewed (Persistent right basal opacification. Pig tail catheter in right chest.), image reviewed
[2019-08-07] MEDS: HYDROmorphone 1 MG/1 ML INJ IV PRN (18:40)
[2019-08-08 00:37] LABS: Total Cells Counted 100 /mm3
[2019-08-08] MEDS: FUROSEMIDE 40 MG/4 ML INJ IV SCH ×2 (05:26→18:16)
[2019-08-08] MEDS: HYDROmorphone 1 MG/1 ML INJ IV PRN (05:29)
--- NOTE | 2019-08-08 09:00 | Progress Note ---
Assessment and Plan Recurrent Pleural effusion - management per pulmonary recommendations. Continue goal directed medical therapy for treatment of cardiomyopathy s/p thoracentesis Chronic renal failure - mangement per primary LLE ulcer - wound care Chronic atrial fibrillation on Eliquis for oral anticoagulation as an outpatient rate controlled with metoprolol and digoxin Continue rate control strategy for his atrial fibrillation Hx of Nonischemic cardiomyopathy EF 15-20% by echo 11/2018 Fluid/sodium restriction Continue medical therapy for chronic systolic heart failure gentle diuresis as tolerated Presence of the ICD recent interrogation revealed a normal functioning device Essential hypertension Type 2 diabetes mellitus Chronic obstructive pulmonary disease Subjective Date of service: 08/08/19 Interval history: No acute events. Resting comfortably. No chest pain. Objective Vital Signs Temp Pulse Resp BP Pulse Ox 08/08/19 08:34 94 08/08/19 00:56 97.4 F L 08/08/19 00:44 62 20 104/66 94 08/08/19 00:00 70 18 96 08/07/19 20:43 98.1 F 08/07/19 20:42 62 18 110/68 97 08/07/19 17:15 97.0 F L 65 18 109/79 94 08/07/19 10:00 69 - Physical Examination General: No Apparent Distress HEENT: Positive: PERRL Neck: Positive: trachea midline Neuro: Positive: Grossly Intact Extremities: Present: edema, Other (LLE ulcer) - Labs and Meds CBC 08/07/19 Range/Units 08:56 WBC 10.5 (4.5-11.0) K/mm3 RBC 4.03 (3.65-5.03) M/mm3 Hgb 11.6 L (11.8-15.2) gm/dl Hct 36.0 (35.5-45.6) % Plt Count 208 (140-440) K/mm3 Comprehensive Metabolic Panel 08/07/19 Range/Units 08:56 Sodium 137 (137-145) mmol/L Potassium 4.3 (3.6-5.0) mmol/L Chloride 95.0 L (98-107) mmol/L Carbon Dioxide 28 (22-30) mmol/L BUN 42 H (9-20) mg/dL Creatinine 1.8 H (0.8-1.5) mg/dL Glucose 84 (75-100) mg/dL Calcium 8.8 (8.4-10.2) mg/dL
[2019-08-08 09:17] LABS: Hematocrit 35.5 % (35.5-45.6); Hemoglobin 11.6 gm/dl (11.8-15.2); Mean Corpuscular HGB Conc 33 % (32-34); Mean Corpuscular Volume 89 fl (84-94); Platelet Count 193 K/mm3 (140-440); Red Cell Distribution Width 18.9 % (13.2-15.2)
[2019-08-08 09:40] LABS: Calcium 8.7 mg/dL (8.4-10.2)
[2019-08-08] MEDS: INSULIN LISPRO 100 UNIT/ML SUB-Q SCH ×4 (10:13→21:53)
[2019-08-08] MEDS: FAMOTIDINE 20 MG TAB PO SCH ×2 (10:46→21:25)
[2019-08-08] MEDS: SODIUM BICARBONATE 650 MG TAB PO SCH ×2 (10:46→21:25)
[2019-08-08] MEDS: NICOTINE 14 MG/24 HR PATCH TD SCH (10:46)
[2019-08-08] MEDS: APIXABAN 5 MG TAB PO SCH ×2 (10:46→21:24)
[2019-08-08] MEDS: METOPROLOL TARTRATE 50 MG TAB PO SCH ×3 (10:47→21:24)
[2019-08-08] MEDS: METOPROLOL TARTRATE 25 MG TAB PO SCH ×3 (10:47→21:24)
[2019-08-08] MEDS: DOCUSATE SODIUM 100 MG CAP PO SCH ×2 (10:47→21:25)
[2019-08-08] MEDS: ASPIRIN 81 MG TAB CHEW PO SCH (10:47)
[2019-08-08] MEDS: predniSONE 20 MG TAB PO SCH (10:47)
[2019-08-08] MEDS: MORPHINE 2 MG/1 ML INJ IV PRN ×3 (10:47→22:04)
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
--- NOTE | 2019-08-08 14:13 | Progress Note ---
Assessment and Plan Assessment and plan: Recurrent Pleural effusion -s/p right chest tube placed . Continue per pulmonology. Acute on Chronic systolic heart failure. Fluid/sodium restriction. Continue medical therapy for chronic systolic heart failure. Cardiology following Lasix iv Acute on Chronic renal failure. Nephrology following LLE ulcer. Wound care Chronic atrial fibrillation Cont. on Eliquis for oral anticoagulation as an outpatient rate controlled with metoprolol and digoxin Hx of Nonischemic cardiomyopathy EF 15-20% by echo 11/2018 Presence of the ICD recent interrogation revealed a normal functioning device hypertension. Cont current regimen Type 2 diabetes mellitus. Accuchecks and SSRI Chronic obstructive pulmonary disease. Stable MSSA left ulcer will consult ID Discontinue Levaquin since not sensitive History Interval history: Shortness of breath Bilateral feet,Leg edema Hospitalist Physical - Physical exam Narrative exam: Gen: Not in acute distress, lying in bed HEENT: Normocephalic, atraumatic Neck: supple, no JVD Heart: S1 and S2 reg, no murmurs, rubs or gallop Lungs: Chest tube on right hemithorax Abd: soft, NT, non distended normal BS Ext: Bilateral edema of feet and legs, left ankle ulcer covered with dressing, no cyanosis Neuro: Awake, alert, oriented X 3, moves all ext - Constitutional Vitals: Temp Pulse Resp BP Pulse Ox 97.4 F L 73 20 111/66 94 08/08/19 00:56 08/08/19 08:27 08/08/19 04:23 08/08/19 08:27 08/08/19 08:34 General appearance: Present: no acute distress Results - Labs CBC & Chem 7: 08/08/19 08:27 08/08/19 08:27 Labs: Laboratory Last Values WBC 9.8 K/mm3 (4.5-11.0) 08/08/19 08:27 RBC 4.00 M/mm3 (3.65-5.03) 08/08/19 08:27 Hgb 11.6 gm/dl (11.8-15.2) L 08/08/19 08:27 Hct 35.5 % (35.5-45.6) 08/08/19 08:27 MCV 89 fl (84-94) 08/08/19 08:27 MCH 29 pg (28-32) 08/08/19 08:27 MCHC 33 % (32-34) 08/08/19 08:27 RDW 18.9 % (13.2-15.2) H 08/08/19 08:27 Plt Count 193 K/mm3 (140-440) 08/08/19 08:27 Lymph % (Auto) 10.3 % (13.4-35.0) L 08/06/19 06:07 [place] % (Auto) 7.7 % (0.0-7.3) H 08/06/19 06:07 Eos % (Auto) 0.3 % (0.0-4.3) 08/06/19 06:07 Baso % (Auto) 0.4 % (0.0-1.8) 08/06/19 06:07 Lymph # 1.2 K/mm3 (1.2-5.4) 08/06/19 06:07 [place] # 0.9 K/mm3 (0.0-0.8) H 08/06/19 06:07 Eos # 0.0 K/mm3 (0.0-0.4) 08/06/19 06:07 Baso # 0.0 K/mm3 (0.0-0.1) 08/06/19 06:07 Add Manual Diff Complete 08/05/19 05:16 Total Counted 100 08/05/19 05:16 Seg Neutrophils % 81.3 % (40.0-70.0) H 08/06/19 06:07 Seg Neuts % (Manual) 89.0 % (40.0-70.0) H 08/05/19 05:16 Band Neutrophils % 0 % 08/05/19 05:16 Lymphocytes % (Manual) 5.0 % (13.4-35.0) L 08/05/19 05:16 Reactive Lymphs % (Man) 0 % 08/05/19 05:16 Monocytes % (Manual) 6.0 % (0.0-7.3) 08/05/19 05:16 Eosinophils % (Manual) 0 % (0.0-4.3) 08/05/19 05:16 Basophils % (Manual) 0 % (0.0-1.8) 08/05/19 05:16 Metamyelocytes % 0 % 08/05/19 05:16 Myelocytes % 0 % 08/05/19 05:16 Promyelocytes % 0 % 08/05/19 05:16 Blast Cells % 0 % 08/05/19 05:16 Nucleated RBC % Not Reportable 08/05/19 05:16 Seg Neutrophils # 9.7 K/mm3 (1.8-7.7) H 08/06/19 06:07 Seg Neutrophils # Man 8.3 K/mm3 (1.8-7.7) H 08/05/19 05:16 Band Neutrophils # 0.0 K/mm3 08/05/19 05:16 Lymphocytes # (Manual) 0.5 K/mm3 (1.2-5.4) L 08/05/19 05:16 Abs React Lymphs (Man) 0.0 K/mm3 08/05/19 05:16 Monocytes # (Manual) 0.6 K/mm3 (0.0-0.8) 08/05/19 05:16 Eosinophils # (Manual) 0.0 K/mm3 (0.0-0.4) 08/05/19 05:16 Basophils # (Manual) 0.0 K/mm3 (0.0-0.1) 08/05/19 05:16 Metamyelocytes # 0.0 K/mm3 08/05/19 05:16 Myelocytes # 0.0 K/mm3 08/05/19 05:16 Promyelocytes # 0.0 K/mm3 08/05/19 05:16 Blast Cells # 0.0 K/mm3 08/05/19 05:16 WBC Morphology Not Reportable 08/05/19 05:16 Hypersegmented Neuts Not Reportable 08/05/19 05:16 Hyposegmented Neuts Not Reportable 08/05/19 05:16 Hypogranular Neuts Not Reportable 08/05/19 05:16 Smudge Cells Not Reportable 08/05/19 05:16 Toxic Granulation Not Reportable 08/05/19 05:16 Toxic Vacuolation Not Reportable 08/05/19 05:16 Dohle Bodies Not Reportable 08/05/19 05:16 Pelger-Huet Anomaly Not Reportable 08/05/19 05:16 Cathie Rods Not Reportable 08/05/19 05:16 Platelet Estimate Consistent w auto 08/05/19 05:16 Clumped Platelets Not Reportable 08/05/19 05:16 Plt Clumps, EDTA Not Reportable 08/05/19 05:16 Large Platelets Not Reportable 08/05/19 05:16 Giant Platelets Not Reportable 08/05/19 05:16 Platelet Satelliting Not Reportable 08/05/19 05:16 Plt Morphology Comment Not Reportable 08/05/19 05:16 RBC Morphology Not Reportable 08/05/19 05:16 Dimorphic RBCs Not Reportable 08/05/19 05:16 Polychromasia Not Reportable 08/05/19 05:16 Hypochromasia Not Reportable 08/05/19 05:16 Poikilocytosis Not Reportable 08/05/19 05:16 Anisocytosis Not Reportable 08/05/19 05:16 Microcytosis Not Reportable 08/05/19 05:16 Macrocytosis Not Reportable 08/05/19 05:16 Spherocytes Not Reportable 08/05/19 05:16 Pappenheimer Bodies Not Reportable 08/05/19 05:16 Sickle Cells Not Reportable 08/05/19 05:16 Target Cells Not Reportable 08/05/19 05:16 Tear Drop Cells Not Reportable 08/05/19 05:16 Ovalocytes Not Reportable 08/05/19 05:16 Stomatocytes Rare 08/05/19 05:16 Helmet Cells Not Reportable 08/05/19 05:16 [place] Bodies Not Reportable 08/05/19 05:16 [place] Rings Not Reportable 08/05/19 05:16 Shahram Cells Rare 08/05/19 05:16 Bite Cells Not Reportable 08/05/19 05:16 Crenated Cell Not Reportable 08/05/19 05:16 Elliptocytes Few 08/05/19 05:16 Acanthocytes (Spur) Not Reportable 08/05/19 05:16 Rouleaux Not Reportable 08/05/19 05:16 Hemoglobin C Crystals Not Reportable 08/05/19 05:16 Schistocytes Not Reportable 08/05/19 05:16 Malaria parasites Not Reportable 08/05/19 05:16 [place] Bodies Not Reportable 08/05/19 05:16 Hem Pathologist Commnt No 08/05/19 05:16 PT 13.9 Sec. (12.2-14.9) 08/01/19 18:49 INR 1.08 (0.87-1.13) 08/01/19 18:49 APTT 30.8 Sec. (24.2-36.6) 08/01/19 18:49 Sodium 138 mmol/L (137-145) 08/08/19 08:27 Potassium 4.3 mmol/L (3.6-5.0) 08/08/19 08:27 Chloride 95.3 mmol/L (98-107) L 08/08/19 08:27 Carbon Dioxide 25 mmol/L (22-30) 08/08/19 08:27 Anion Gap 22 mmol/L 08/08/19 08:27 BUN 48 mg/dL (9-20) H 08/08/19 08:27 Creatinine 1.7 mg/dL (0.8-1.5) H 08/08/19 08:27 Estimated GFR 51 ml/min 08/08/19 08:27 BUN/Creatinine Ratio 28 % 08/08/19 08:27 Glucose 87 mg/dL (75-100) 08/08/19 08:27 POC Glucose 91 (70-105) 08/08/19 12:11 Hemoglobin A1c 5.9 % (4-6) 08/02/19 07:49 Calcium 8.7 mg/dL (8.4-10.2) 08/08/19 08:27 Total Bilirubin 1.20 mg/dL (0.1-1.2) 08/03/19 04:57 Direct Bilirubin 1.0 mg/dL (0-0.2) H 08/01/19 18:49 Indirect Bilirubin 0.8 mg/dL 08/01/19 18:49 AST 21 units/L (5-40) 08/03/19 04:57 ALT 20 units/L (7-56) 08/03/19 04:57 Alkaline Phosphatase 195 units/L (35-129) H 08/03/19 04:57 Lactate Dehydrogenase 199 units/L (91-180) H 08/03/19 17:01 Troponin T 0.054 ng/mL (0.00-0.029) H 08/02/19 00:28 NT-Pro-B Natriuret Pep 67493 pg/mL (0-900) H 08/01/19 18:49 Total Protein 6.6 g/dL (6.3-8.2) 08/03/19 04:57 Albumin 2.9 g/dL (3.9-5) L 08/03/19 04:57 Albumin/Globulin Ratio 0.8 % 08/03/19 04:57 Triglycerides 69 mg/dL (2-149) 08/01/19 18:49 Cholesterol 131 mg/dL (50-199) 08/01/19 18:49 LDL Cholesterol Direct 88 mg/dL (50-130) 08/01/19 18:49 HDL Cholesterol 41 mg/dL (40-59) 08/01/19 18:49 Cholesterol/HDL Ratio 3.19 % 08/01/19 18:49 Fluid Type Pleural 08/07/19 20:20 Fluid Color Yellow 08/07/19 20:20 Fluid Appearance Cloudy 08/07/19 20:20 Fluid WBC 348 /mm3 08/07/19 20:20 Fluid RBC 669 /mm3 08/07/19 20:20 Fluid Seg Neutrophils 1.0 % 08/07/19 20:20 Fluid Lymphocytes 26.0 % 08/07/19 20:20 Fluid Reactive Lymphs 0 % 08/07/19 20:20 Fluid Monocytes 14.0 % 08/07/19 20:20 Fluid Eosinophils 59.0 % 08/07/19 20:20 Fluid Basophils 0 % 08/07/19 20:20 Active Medications - Current Medications Current Medications: Generic Name Dose Route Start Last Admin Trade Name Freq PRN Reason Stop Dose Admin Acetaminophen 650 mg 08/06/19 12:38 Tylenol PO Q4H PRN Pain MILD(1-3)/Fever >100.5/TRUJILLO Apixaban 5 mg 08/02/19 10:00 08/08/19 10:46 Eliquis PO 5 mg BID SOUMYA Administration Protocol Aspirin 81 mg 08/02/19 10:00 08/08/19 10:47 Baby Aspirin PO 81 mg QDAY SOUMYA Administration Atorvastatin Calcium 40 mg 08/02/19 22:00 08/07/19 22:03 Lipitor PO 40 mg QHS SOUMYA Administration Digoxin 0.25 mg 08/04/19 17:00 08/06/19 17:11 Lanoxin PO 0.25 mg Q48H SOUMYA Administration Docusate Sodium 100 mg 08/02/19 10:00 08/08/19 10:47 Colace PO 100 mg BID SOUMYA Administration Famotidine 20 mg 08/02/19 10:00 08/08/19 10:46 Pepcid PO 20 mg BID SOUMYA Administration Furosemide 40 mg 08/02/19 06:00 08/08/19 05:26 Lasix IV 40 mg 0600,1800 SOUMYA Administration Hydromorphone HCl 0.5 mg 08/02/19 01:32 08/08/19 05:29 Dilaudid IV 0.5 mg Q4H PRN Administration Pain , Severe (7-10) Insulin Human Lispro 0 unit 08/02/19 07:30 08/08/19 10:13 Humalog SUB-Q Not Given ACHS [facility] Protocol Metoclopramide HCl 10 mg 08/02/19 04:12 Reglan IV Q6H PRN Nausea And Vomiting Metoprolol Tartrate 50 mg 08/02/19 08:00 08/08/19 10:47 Metoprolol PO 50 mg TID SOUMYA Administration Metoprolol Tartrate 25 mg 08/02/19 08:00 08/08/19 10:47 Metoprolol PO 25 mg TID SOUMYA Administration Morphine Sulfate 2 mg 08/06/19 12:04 08/08/19 10:47 Morphine IV 2 mg Q4H PRN Administration Pain, Moderate (4-6) Nicotine 14 mg 08/02/19 10:00 08/08/19 10:46 Habitrol TD 14 mg QDAY SOUMYA Administration Ondansetron HCl 4 mg 08/02/19 04:12 Zofran IV Q8H PRN Nausea And Vomiting Oxycodone HCl 5 mg 08/02/19 04:18 08/07/19 11:02 Roxicodone PO 5 mg Q6H PRN Administration Pain, (7-10) Oxycodone/Acetaminophen 1 tab 08/02/19 04:09 08/07/19 20:08 Percocet 5/325 PO 1 tab Q6H PRN Administration Pain , Severe (7-10) Prednisone 20 mg 08/02/19 10:00 08/08/19 10:47 Deltasone PO 20 mg QDAY SOUMYA Administration Sodium Bicarbonate 1,300 mg 08/02/19 10:00 08/08/19 10:46 Sodium Bicarbonate PO 1,300 mg BID SOUMYA Administration Sodium Chloride 10 ml 08/02/19 04:12 08/04/19 06:17 Sodium Chloride Flush Syringe 10 Ml IV 10 ml PRN PRN Administration LINE FLUSH Sodium Chloride 10 ml 08/02/19 10:00 08/08/19 10:48 Sodium Chloride Flush Syringe 10 Ml IV 10 ml BID SOUMYA Administration Nutrition/Malnutrition Assess - Dietary Evaluation Nutrition/Malnutrition Findings: Nutrition Notes Start: 08/06/19 11:55 Freq: Status: Active Protocol: Document 08/06/19 11:55 CT (Rec: 08/06/19 12:16 CT [id number]) Co-Sign 08/06/19 11:55 LP Nutrition Notes Need for Assessment generated from: LOS Initial or Follow up Assessment Current Diagnosis COPD,Diabetes,Hypertension, Heart Failure Other Pertinent Diagnosis Renal failure, A-fib, staph infection, Plueral effusion, severe edema Current Diet Consistent CHO Labs/Tests BUN 41 Creatinine 1.8 Pertinent Medications Lasix Humalog Height 6 ft 1 in Weight 100 kg Usual Body Weight 73.482 kg [place] Body Weight (kg) 83.63 BMI 29.0 Weight change and time frame wt gain likely d/t severe edema Weight Status Overweight Subjective/Other Information LOS screen. Pt stated his doctor approved double portions and glucerna TID. Order was placed for double portions and glucerna. Discussed slightly liberalizing diet if blood glucose levels stay stable. Pt stated a 30 lb wt loss d/t fluid from pleural effusion. Pt is allergic to strawberries . Noted temporal and orbital wasting. Burn Absent Trauma Absent GI Symptoms None Current % PO Good (75-100%) Minimum of two criteria Yes Body Fat Depletion Moderate depletion (severe) Muscle Mass Moderate Depletion (severe) Fluid Accumulation Moderate to Severe (severe) #1 Nutrition Diagnosis Malnutrition Etiology chronic illness As Evidenced by Signs and Symptoms fat and muscle wasting, +4 pitting edema per physical assessment Is patient on ventilator? No Is Patient Ambulatory and/or Out of Bed Yes REE-(Sibley-St. Jeor-ambulatory/OOB) [ 2462.044 [id number]] Calculation [facility]ations [facility] Additional Notes Protein: 109-137 g/kg/day (1.2 -1.5 g/kg/day AdBW 91.8kg) Fluid: per MD Nutrition Intervention Change Diet Order: Continue Consistent CHO Add Supplement/Snack (indicate name/kcal Add glucerna Vanilla and /protein ) Chocolate TID Provides kCal: 660 Provides Protein (gm) 30 Goal #1 Meet >75% of energy and protein needs Anticipated Discharge Needs: Consistent CHO Follow-Up By: 08/09/19 Additional Comments Follow up for PO/ONS intakes.
[2019-08-08] MEDS ORDERED: VANCOMYCIN/NS 1 GM/250 ML 1 GM/250 ML BAG IV SCH (15:00)
[2019-08-08] MEDS ORDERED: VANCOMYCIN 1,750 MG in SODIUM CHLORIDE 0.9% 500 ML 500 ML IV ONE (16:00)
--- NOTE | 2019-08-08 16:17 | Progress Note ---
Assessment and Plan Impression: * Stage III chronic kidney disease --Baseline SCr 1.6-1.8mg/dL * Pleural effusion, recurrent - s/p thoracentesis, s/p right chest tube placement * Nonischemic cardiomyopathy s/p ICD --TTE (Nov 2018) EF 15-20% * Atrial fibrillation * Chronic systolic heart failure * Chronic hypoxic respiratory failure * Left ankle wound infection - MSSA * Medical noncompliance Plan: * Renal function is stable - at baseline * Continue IV diuresis * Rate control and anticoagulation per cardiology * Chest tube management per IR/pulmonary medicine * Abx per primary team/ID * Strict I/O * Dose medications for renal function * Avoid nephrotoxins Subjective Date of service: 08/08/19 Interval history: Patient has no complaints today. Denies SOB. Objective - Vital Signs Vital signs: Vital Signs - 12hr 08/08/19 08/08/19 08/08/19 04:23 08:27 08:34 Pulse Rate 67 73 Respiratory 20 Rate Blood Pressure 100/67 111/66 O2 Sat by Pulse 97 94 94 Oximetry 08/08/19 10:00 Pulse Rate 73 Respiratory Rate Blood Pressure O2 Sat by Pulse Oximetry - General Appearance General appearance: well-developed, appears stated age EENT: ATNC, other (poor dentition) Respiratory: Present: Decreased Breath Sounds Cardiology: regular, S1S2 Gastrointestinal: normal, no tenderness, no distended Integumentary: other (left ankle bandaged) Neurologic: no focal deficit Musculoskeletal: other (2+ pedal edema) Psychiatric: cooperative - Lab 08/08/19 08:27 08/08/19 08:27 Most recent lab results Calcium 8.7 mg/dL (8.4-10.2) 08/08/19 08:27 Medications & Allergies - Medications Allergies/Adverse Reactions: Allergies Penicillins Allergy (Verified 03/05/19 22:41) Itching strawberry Allergy (Verified 03/05/19 22:41) Hives Home Medications: Home Medications Medication Instructions Recorded Confirmed Last Taken Type Aspirin [Aspirin BABY CHEW TAB] 81 mg PO QDAY #30 tab.chew 03/14/19 08/02/19 1 09/18/18 15:57 Rx Acetaminophen [Acetaminophen TAB] 2 tab PO Q4H PRN #15 tablet 06/25/19 08/02/19 07/19/19 15:58 Rx Apixaban [Eliquis] 1 tab PO BID #60 tablet 07/24/19 08/02/19 Unknown Rx AtorvaSTATin [Lipitor] 40 mg PO QHS #30 tablet 07/24/19 08/02/19 Unknown Rx Colchicine 0.6 mg PO QDAY #10 capsule 07/24/19 08/02/19 Unknown Rx Digoxin [Lanoxin] 0.25 mg PO DAILY@1700 #30 tablet 07/24/19 08/02/19 Unknown Rx Docusate Sodium [Colace CAP] 100 mg PO BID capsule 07/24/19 08/02/19 Unknown Rx Metoprolol [Lopressor TAB] 75 mg PO TID #90 tablet 07/24/19 08/02/19 Unknown Rx Nicotine [Habitrol] 14 mg TD QDAY #30 patch 07/24/19 08/02/19 Unknown Rx Oxycodone HCl/Acetaminophen 1 each PO Q6HR PRN #20 tablet 07/24/19 08/02/19 Unknown Rx [Percocet 10/325 mg] Sodium Bicarbonate 1,300 mg PO BID #90 tablet 07/24/19 08/02/19 Unknown Rx Torsemide [Demadex] 100 mg PO DAILY@0600 #30 tablet 07/24/19 08/02/19 Unknown Rx guaiFENesin ER [Mucinex ER] 600 mg PO BID #60 tablet 07/24/19 08/02/19 Unknown Rx oxyCODONE /ACETAMINOPHEN [Percocet 1 tab PO Q6H PRN tablet 07/24/19 08/02/19 Unknown Rx 5/325 mg] predniSONE [Deltasone] 20 mg PO QDAY #7 tablet 07/24/19 08/02/19 Unknown Rx Active Medications: Generic Name Dose Route Start Last Admin Trade Name Freq PRN Reason Stop Dose Admin Acetaminophen 650 mg 08/06/19 12:38 Tylenol PO Q4H PRN Pain MILD(1-3)/Fever >100.5/TRUJILLO Apixaban 5 mg 08/02/19 10:00 08/08/19 10:46 Eliquis PO 5 mg BID SOUMYA Administration Protocol Aspirin 81 mg 08/02/19 10:00 08/08/19 10:47 Baby Aspirin PO 81 mg QDAY SOUMYA Administration Atorvastatin Calcium 40 mg 08/02/19 22:00 08/07/19 22:03 Lipitor PO 40 mg QHS SOUMYA Administration Digoxin 0.25 mg 08/04/19 17:00 08/06/19 17:11 Lanoxin PO 0.25 mg Q48H [facility] Administration Docusate Sodium 100 mg 08/02/19 10:00 08/08/19 10:47 Colace PO 100 mg BID SOUMYA Administration Famotidine 20 mg 08/02/19 10:00 08/08/19 10:46 Pepcid PO 20 mg BID SOUMYA Administration Furosemide 40 mg 08/02/19 06:00 08/08/19 05:26 Lasix IV 40 mg 0600,1800 [facility] Administration Hydromorphone HCl 0.5 mg 08/02/19 01:32 08/08/19 05:29 Dilaudid IV 0.5 mg Q4H PRN Administration Pain , Severe (7-10) Vancomycin HCl 1,750 mg/ 535 mls @ 356.667 mls/hr 08/08/19 16:00 Sodium Chloride IV 08/08/19 17:29 ONCE ONE Vancomycin HCl 1 gm in 250 mls @ 166.667 mls/hr 08/09/19 06:00 Vancomycin/Ns 1 Gm/250 Ml IV Q12H [facility] Insulin Human Lispro 0 unit 08/02/19 07:30 08/08/19 10:13 Humalog SUB-Q Not Given ACHS [facility] Protocol Metoclopramide HCl 10 mg 08/02/19 04:12 Reglan IV Q6H PRN Nausea And Vomiting Metoprolol Tartrate 50 mg 08/02/19 08:00 08/08/19 10:47 Metoprolol PO 50 mg TID [facility] Administration Metoprolol Tartrate 25 mg 08/02/19 08:00 08/08/19 10:47 Metoprolol PO 25 mg TID [facility] Administration Morphine Sulfate 2 mg 08/06/19 12:04 08/08/19 10:47 Morphine IV 2 mg Q4H PRN Administration Pain, Moderate (4-6) Nicotine 14 mg 08/02/19 10:00 08/08/19 10:46 Habitrol TD 14 mg QDAY [facility] Administration Ondansetron HCl 4 mg 08/02/19 04:12 Zofran IV Q8H PRN Nausea And Vomiting Oxycodone HCl 5 mg 08/02/19 04:18 08/07/19 11:02 Roxicodone PO 5 mg Q6H PRN Administration Pain, (7-10) Oxycodone/Acetaminophen 1 tab 08/02/19 04:09 08/07/19 20:08 Percocet 5/325 PO 1 tab Q6H PRN Administration Pain , Severe (7-10) Prednisone 20 mg 08/02/19 10:00 08/08/19 10:47 Deltasone PO 20 mg QDAY SOUMYA Administration Sodium Bicarbonate 1,300 mg 08/02/19 10:00 08/08/19 10:46 Sodium Bicarbonate PO 1,300 mg BID SOUMYA Administration Sodium Chloride 10 ml 08/02/19 04:12 08/04/19 06:17 Sodium Chloride Flush Syringe 10 Ml IV 10 ml PRN PRN Administration LINE FLUSH Sodium Chloride 10 ml 08/02/19 10:00 08/08/19 10:48 Sodium Chloride Flush Syringe 10 Ml IV 10 ml BID SOUMYA Administration
--- NOTE | 2019-08-08 17:06 | XRay Report ---
Left ankle-3 views INDICATION: eval hardware infection. COMPARISON: None. IMPRESSION: Mature-appearing ankylosis of the tibiotalar arthrodesis which is transfixed by distally threaded screws. There is generalized soft tissue swelling about the ankle and extending into the fo ot, especially dorsally. 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 No soft tissue wound or clear evidence of osteomyelitis related to the [place] rdware. Signer Name: Steven Mendenhall MD Signed: 08/08/2019 5:02 PM Workstation Name: [id number]
[2019-08-08] MEDS: DIGOXIN 0.25 MG TAB PO SCH (18:16)
--- NOTE | 2019-08-08 19:20 | Progress Note ---
Assessment and Plan atient alert, awake and resting 2 litres O2. Patient has right chest tube placement. Chest tube drained significant amount of fluid. Recommend to send pleural fluid to cell count, LDH, Protein, Glucose, Amylase, Cytology, gram stain, C&S , AFB and fungus. Patient says breathing better. O2 saturation 94%. Pleural fluid cell count reported WBC 348, RBC 669. Rest of the pleural fluid results pending. - Patient Problems (1) Acute and chronic respiratory failure Current Visit: No Status: Acute Qualifiers: Respiratory failure complication: hypoxia Qualified Code(s): J96.21 - Acute and chronic respiratory failure with hypoxia Plan to address problem: 1. O2 2 liters via nasal cannula. 2. albuterol and atrovent aerosol treatments q 6 hours 3. continue prednisone 4. continue levoquin 5. continue apixaban 6. Continue famotidine (2) CHF exacerbation Current Visit: Yes Status: Acute Plan to address problem: Pt is on IV lasix and management as per cardiology (3) Chest pain Current Visit: Yes Status: Acute Plan to address problem: Management as per cardiology (4) Chronic atrial fibrillation Current Visit: Yes Status: Acute Plan to address problem: Pt is on apixaban. Management as per cardiology. (5) Acute kidney injury superimposed on chronic kidney disease Current Visit: No Status: Acute Plan to address problem: management as per nephrology (6) COPD (chronic obstructive pulmonary disease) Current Visit: No Status: Acute Qualifiers: Chronic bronchitis type: mixed simple and mucopurulent Plan to address problem: 1. O2 2 liters via nasal cannula. 2. albuterol and atrovent aerosol treatments q 6 hours 3. continue prednisone 4. continue levoquin 5. continue apixaban 6. Continue famotidine 7. PFTs an out patient (7) Recurrent right pleural effusion Current Visit: No Status: Acute Plan to address problem: Patient has right chest tube placement. Patient draining clear fluid. recommend to send pleural fluid to cell count, LDH, Protein, Glucose, Amylase, Cytology, gram stain, C&S , AFB and fungus. Pleural fluid cell count reported WBC 348, RBC 669. Rest of the pleural fluid results pending. Subjective Date of service: 08/08/19 Interval history: Patient alert, awake and resting 2 litres O2. Patient has right chest tube placement. Chest tube drained significant amount of fluid. Recommend to send pleural fluid to cell count, LDH, Protein, Glucose, Amylase, Cytology, gram st ain, C&S , AFB and fungus. Patient says breathing better. O2 saturation 94%. Pleural fluid cell count reported WBC 348, RBC 669. Rest of the pleural fluid results pending. Objective Vital Signs - 12hr 08/08/19 08/08/19 08/08/19 08:27 08:34 10:00 Pulse Rate 73 73 Blood Pressure 111/66 O2 Sat by Pulse 94 94 Oximetry Constitutional: no acute distress, alert Eyes: non-icteric Ascultation: Right: diminished breath sounds (base) Cardiovascular: irregular rhythm Gastrointestinal: normoactive bowel sounds, soft, non-tender Integumentary: normal, other (Wound on right lower leg.) Extremities: no cyanosis, edema (bilateral) Neurologic: non-focal exam, pupils equal and round, CN II-XII normal Psychiatric: anxious CBC and BMP: 08/08/19 08:27 08/08/19 08:27 ABG, PT/INR, D-dimer: PT/INR, D-dimer PT 13.9 Sec. (12.2-14.9) 08/01/19 18:49 INR 1.08 (0.87-1.13) 08/01/19 18:49 Abnormal lab findings: Abnormal Labs 08/01/19 08/01/19 08/01/19 18:49 18:49 18:49 WBC Hgb 11.6 L Hct RDW 19.3 H Lymph % (Auto) 10.0 L [place] % (Auto) 9.5 H Lymph # 1.0 L [place] # 0.9 H Seg Neutrophils % 79.2 H Seg Neuts % (Manual) Lymphocytes % (Manual) Seg Neutrophils # Seg Neutrophils # Man Lymphocytes # (Manual) Sodium Chloride Carbon Dioxide 21 L BUN Creatinine Glucose POC Glucose Calcium Total Bilirubin 1.80 H Direct Bilirubin 1.0 H Alkaline Phosphatase 212 H Lactate Dehydrogenase Troponin T 0.044 H NT-Pro-B Natriuret Pep 80634 H Albumin 3.4 L 08/01/19 08/02/19 08/02/19 21:07 00:28 10:14 WBC Hgb Hct RDW Lymph % (Auto) [place] % (Auto) Lymph # [place] # Seg Neutrophils % Seg Neuts % (Manual) Lymphocytes % (Manual) Seg Neutrophils # Seg Neutrophils # Man Lymphocytes # (Manual) Sodium Chloride Carbon Dioxide BUN Creatinine Glucose POC Glucose 115 H Calcium Total Bilirubin Direct Bilirubin Alkaline Phosphatase Lactate Dehydrogenase Troponin T 0.049 H 0.054 H NT-Pro-B Natriuret Pep Albumin 08/02/19 08/02/19 08/02/19 11:18 16:04 21:51 WBC Hgb Hct RDW Lymph % (Auto) [place] % (Auto) Lymph # [place] # Seg Neutrophils % Seg Neuts % (Manual) Lymphocytes % (Manual) Seg Neutrophils # Seg Neutrophils # Man Lymphocytes # (Manual) Sodium Chloride Carbon Dioxide BUN Creatinine Glucose POC Glucose 144 H 126 H 130 H Calcium Total Bilirubin Direct Bilirubin Alkaline Phosphatase Lactate Dehydrogenase Troponin T NT-Pro-B Natriuret Pep Albumin 08/03/19 08/03/19 08/03/19 04:57 04:57 16:36 WBC Hgb 11.0 L Hct 34.3 L RDW 19.4 H Lymph % (Auto) 9.5 L [place] % (Auto) Lymph # 0.9 L [place] # Seg Neutrophils % 83.0 H Seg Neuts % (Manual) Lymphocytes % (Manual) Seg Neutrophils # 8.2 H Seg Neutrophils # Man Lymphocytes # (Manual) Sodium Chloride Carbon Dioxide BUN 30 H Creatinine 2.1 H D Glucose 140 H POC Glucose 142 H Calcium 8.1 L Total Bilirubin Direct Bilirubin Alkaline Phosphatase 195 H Lactate Dehydrogenase Troponin T NT-Pro-B Natriuret Pep Albumin 2.9 L 08/03/19 08/03/19 08/04/19 17:01 21:12 11:31 WBC Hgb Hct RDW Lymph % (Auto) [place] % (Auto) Lymph # [place] # Seg Neutrophils % Seg Neuts % (Manual) Lymphocytes % (Manual) Seg Neutrophils # Seg Neutrophils # Man Lymphocytes # (Manual) Sodium Chloride Carbon Dioxide BUN Creatinine Glucose POC Glucose 158 H 59 L Calcium Total Bilirubin Direct Bilirubin Alkaline Phosphatase Lactate Dehydrogenase 199 H Troponin T NT-Pro-B Natriuret Pep Albumin 08/04/19 08/04/19 08/05/19 16:07 21:05 05:16 WBC Hgb 10.9 L Hct 34.0 L RDW 19.4 H Lymph % (Auto) [place] % (Auto) Lymph # [place] # Seg Neutrophils % Seg Neuts % (Manual) 89.0 H Lymphocytes % (Manual) 5.0 L Seg Neutrophils # Seg Neutrophils # Man 8.3 H Lymphocytes # (Manual) 0.5 L Sodium Chloride Carbon Dioxide BUN Creatinine Glucose POC Glucose 174 H 118 H Calcium Total Bilirubin Direct Bilirubin Alkaline Phosphatase Lactate Dehydrogenase Troponin T NT-Pro-B Natriuret Pep Albumin 08/05/19 08/05/19 08/06/19 05:16 20:35 06:07 WBC 11.9 H Hgb 11.4 L Hct 35.0 L RDW 19.3 H Lymph % (Auto) 10.3 L [place] % (Auto) 7.7 H Lymph # [place] # 0.9 H Seg Neutrophils % 81.3 H Seg Neuts % (Manual) Lymphocytes % (Manual) Seg Neutrophils # 9.7 H Seg Neutrophils # Man Lymphocytes # (Manual) Sodium 136 L Chloride Carbon Dioxide BUN 38 H Creatinine 1.9 H Glucose 160 H POC Glucose 125 H Calcium Total Bilirubin Direct Bilirubin Alkaline Phosphatase Lactate Dehydrogenase Troponin T NT-Pro-B Natriuret Pep Albumin 08/06/19 08/06/19 08/06/19 06:07 11:44 15:40 WBC Hgb Hct RDW Lymph % (Auto) [place] % (Auto) Lymph # [place] # Seg Neutrophils % Seg Neuts % (Manual) Lymphocytes % (Manual) Seg Neutrophils # Seg Neutrophils # Man Lymphocytes # (Manual) Sodium Chloride 97.5 L Carbon Dioxide BUN 41 H Creatinine 1.8 H Glucose POC Glucose 123 H 154 H Calcium Total Bilirubin Direct Bilirubin Alkaline Phosphatase Lactate Dehydrogenase Troponin T NT-Pro-B Natriuret Pep Albumin 08/06/19 08/07/19 08/07/19 21:22 08:56 08:56 WBC Hgb 11.6 L Hct RDW 18.8 H Lymph % (Auto) [place] % (Auto) Lymph # [place] # Seg Neutrophils % Seg Neuts % (Manual) Lymphocytes % (Manual) Seg Neutrophils # Seg Neutrophils # Man Lymphocytes # (Manual) Sodium Chloride 95.0 L Carbon Dioxide BUN 42 H Creatinine 1.8 H Glucose POC Glucose 108 H Calcium Total Bilirubin Direct Bilirubin Alkaline Phosphatase Lactate Dehydrogenase Troponin T NT-Pro-B Natriuret Pep Albumin 08/07/19 08/07/19 08/07/19 12:39 16:31 20:50 WBC Hgb Hct RDW Lymph % (Auto) [place] % (Auto) Lymph # [place] # Seg Neutrophils % Seg Neuts % (Manual) Lymphocytes % (Manual) Seg Neutrophils # Seg Neutrophils # Man Lymphocytes # (Manual) Sodium Chloride Carbon Dioxide BUN Creatinine Glucose POC Glucose 110 H 132 H 126 H Calcium Total Bilirubin Direct Bilirubin Alkaline Phosphatase Lactate Dehydrogenase Troponin T NT-Pro-B Natriuret Pep Albumin 08/08/19 08/08/19 08/08/19 08:27 08:27 16:14 WBC Hgb 11.6 L Hct RDW 18.9 H Lymph % (Auto) [place] % (Auto) Lymph # [place] # Seg Neutrophils % Seg Neuts % (Manual) Lymphocytes % (Manual) Seg Neutrophils # Seg Neutrophils # Man Lymphocytes # (Manual) Sodium Chloride 95.3 L Carbon Dioxide BUN 48 H Creatinine 1.7 H Glucose POC Glucose 155 H Calcium Total Bilirubin Direct Bilirubin Alkaline Phosphatase Lactate Dehydrogenase Troponin T NT-Pro-B Natriuret Pep Albumin
[2019-08-09] MEDS: FUROSEMIDE 40 MG/4 ML INJ IV SCH ×2 (05:25→18:50)
[2019-08-09] MEDS ORDERED: VANCOMYCIN/NS 1 GM/250 ML 1 GM/250 ML BAG IV SCH (06:00)
[2019-08-09] MEDS: MORPHINE 2 MG/1 ML INJ IV PRN ×3 (06:11→20:58)
[2019-08-09] MEDS: INSULIN LISPRO 100 UNIT/ML SUB-Q SCH ×4 (08:05→22:16)
[2019-08-09] MEDS: METOPROLOL TARTRATE 25 MG TAB PO SCH ×3 (09:10→20:16)
[2019-08-09] MEDS: METOPROLOL TARTRATE 50 MG TAB PO SCH ×3 (09:10→20:16)
[2019-08-09] MEDS: SODIUM BICARBONATE 650 MG TAB PO SCH ×2 (10:09→22:12)
[2019-08-09] MEDS: ASPIRIN 81 MG TAB CHEW PO SCH (10:09)
[2019-08-09] MEDS: predniSONE 20 MG TAB PO SCH (10:09)
[2019-08-09] MEDS: DOCUSATE SODIUM 100 MG CAP PO SCH ×2 (10:09→22:13)
[2019-08-09] MEDS: APIXABAN 5 MG TAB PO SCH ×2 (10:10→22:13)
[2019-08-09] MEDS: NICOTINE 14 MG/24 HR PATCH TD SCH (10:10)
[2019-08-09] MEDS: FAMOTIDINE 20 MG TAB PO SCH ×2 (10:12→22:13)
--- NOTE | 2019-08-09 11:18 | Progress Note ---
Assessment and Plan Recurrent Pleural effusion s/p thoracentesis s/p right chest tube Chronic systolic heart failure Chronic renal failure LLE ulcer Chronic atrial fibrillation on Eliquis for oral anticoagulation as an outpatient rate controlled with metoprolol and digoxin Hx of Nonischemic cardiomyopathy EF 15-20% by echo 11/2018 Presence of the ICD an interrogation this admission reports no ventricular arrhythmias or ICD discharge; a normal functioning device. Essential hypertension Type 2 diabetes mellitus Chronic obstructive pulmonary disease Recommendations: Advised fluid/sodium restriction. Continue medical therapy for chronic systolic heart failure. Continue rate control strategy for his atrial fibrillation. Monitor labs daily. We will check a digoxin level. Subjective Date of service: 08/09/19 Interval history: Patient is admitted with recurrent right pleural effusion. A right chest tube has since been placed for persistent right pleural effusion. Short burst of NSVT seen on telemetry this morning. Patient remained asymptomatic. Patient refused morning labs. Objective Vital Signs Temp Pulse Resp BP Pulse Ox 08/09/19 09:10 76 121/75 08/09/19 07:51 98.3 F 18 114/78 08/09/19 05:00 98.0 F 60 18 109/75 94 08/09/19 00:19 98.4 F 87 18 110/76 94 08/09/19 00:00 81 08/08/19 23:18 96 08/08/19 21:16 97.7 F 58 L 18 105/70 94 08/08/19 13:43 98.0 F 18 90/51 - Physical Examination General: No Apparent Distress HEENT: Positive: PERRL Neck: Positive: trachea midline Cardiac: Positive: irregularly irregular Lungs: Positive: Decreased Breath Sounds, Other (right chest tube in place) Neuro: Positive: Grossly Intact Extremities: Present: edema, Other (LLE ulcer)
--- NOTE | 2019-08-09 12:09 | Progress Note ---
Assessment and Plan Assessment and plan: Recurrent Pleural effusion -s/p right chest tube placed . Continue per pulmonology. Acute on Chronic systolic heart failure. Fluid/sodium restriction. Continue medical therapy for chronic systolic heart failure. Cardiology following Lasix iv Acute on Chronic renal failure. Nephrology following Left ankle ulcer with infected hardware ID recommend Ortho evaluation. Consulted Chronic atrial fibrillation Cont. on Eliquis for oral anticoagulation as an outpatient rate controlled with metoprolol and digoxin Hx of Nonischemic cardiomyopathy EF 15-20% by echo 11/2018 Presence of the ICD recent interrogation revealed a normal functioning device hypertension. Cont current regimen Type 2 diabetes mellitus. Accuchecks and SSRI Chronic obstructive pulmonary disease. Stable MSSA left ulcer ID following On Cefazolin. History Interval history: Less Shortness of breath Bilateral feet,Leg edema Hospitalist Physical - Physical exam Narrative exam: Gen: Not in acute distress, lying in bed HEENT: Normocephalic, atraumatic Neck: supple, no JVD Heart: S1 and S2 reg, no murmurs, rubs or gallop Lungs: Chest tube on right hemithorax Abd: soft, NT, non distended normal BS Ext: Bilateral edema of feet and legs, left ankle ulcer covered with dressing, no cyanosis Neuro: Awake, alert, oriented X 3, moves all ext - Constitutional Vitals: Temp Pulse Resp BP Pulse Ox 98.3 F 76 18 121/75 94 08/09/19 07:51 08/09/19 09:10 08/09/19 07:51 08/09/19 09:10 08/09/19 05:00 General appearance: Present: no acute distress Results - Labs CBC & Chem 7: 08/09/19 11:44 08/09/19 11:44 Labs: Laboratory Last Values WBC 9.8 K/mm3 (4.5-11.0) 08/08/19 08:27 RBC 4.00 M/mm3 (3.65-5.03) 08/08/19 08:27 Hgb 11.6 gm/dl (11.8-15.2) L 08/08/19 08:27 Hct 35.5 % (35.5-45.6) 08/08/19 08:27 MCV 89 fl (84-94) 08/08/19 08:27 MCH 29 pg (28-32) 08/08/19 08:27 MCHC 33 % (32-34) 08/08/19 08:27 RDW 18.9 % (13.2-15.2) H 08/08/19 08:27 Plt Count 193 K/mm3 (140-440) 08/08/19 08:27 Lymph % (Auto) 10.3 % (13.4-35.0) L 08/06/19 06:07 [place] % (Auto) 7.7 % (0.0-7.3) H 08/06/19 06:07 Eos % (Auto) 0.3 % (0.0-4.3) 08/06/19 06:07 Baso % (Auto) 0.4 % (0.0-1.8) 08/06/19 06:07 Lymph # 1.2 K/mm3 (1.2-5.4) 08/06/19 06:07 [place] # 0.9 K/mm3 (0.0-0.8) H 08/06/19 06:07 Eos # 0.0 K/mm3 (0.0-0.4) 08/06/19 06:07 Baso # 0.0 K/mm3 (0.0-0.1) 08/06/19 06:07 Add Manual Diff Complete 08/05/19 05:16 Total Counted 100 08/05/19 05:16 Seg Neutrophils % 81.3 % (40.0-70.0) H 08/06/19 06:07 Seg Neuts % (Manual) 89.0 % (40.0-70.0) H 08/05/19 05:16 Band Neutrophils % 0 % 08/05/19 05:16 Lymphocytes % (Manual) 5.0 % (13.4-35.0) L 08/05/19 05:16 Reactive Lymphs % (Man) 0 % 08/05/19 05:16 Monocytes % (Manual) 6.0 % (0.0-7.3) 08/05/19 05:16 Eosinophils % (Manual) 0 % (0.0-4.3) 08/05/19 05:16 Basophils % (Manual) 0 % (0.0-1.8) 08/05/19 05:16 Metamyelocytes % 0 % 08/05/19 05:16 Myelocytes % 0 % 08/05/19 05:16 Promyelocytes % 0 % 08/05/19 05:16 Blast Cells % 0 % 08/05/19 05:16 Nucleated RBC % Not Reportable 08/05/19 05:16 Seg Neutrophils # 9.7 K/mm3 (1.8-7.7) H 08/06/19 06:07 Seg Neutrophils # Man 8.3 K/mm3 (1.8-7.7) H 08/05/19 05:16 Band Neutrophils # 0.0 K/mm3 08/05/19 05:16 Lymphocytes # (Manual) 0.5 K/mm3 (1.2-5.4) L 08/05/19 05:16 Abs React Lymphs (Man) 0.0 K/mm3 08/05/19 05:16 Monocytes # (Manual) 0.6 K/mm3 (0.0-0.8) 08/05/19 05:16 Eosinophils # (Manual) 0.0 K/mm3 (0.0-0.4) 08/05/19 05:16 Basophils # (Manual) 0.0 K/mm3 (0.0-0.1) 08/05/19 05:16 Metamyelocytes # 0.0 K/mm3 08/05/19 05:16 Myelocytes # 0.0 K/mm3 08/05/19 05:16 Promyelocytes # 0.0 K/mm3 08/05/19 05:16 Blast Cells # 0.0 K/mm3 08/05/19 05:16 WBC Morphology Not Reportable 08/05/19 05:16 Hypersegmented Neuts Not Reportable 08/05/19 05:16 Hyposegmented Neuts Not Reportable 08/05/19 05:16 Hypogranular Neuts Not Reportable 08/05/19 05:16 Smudge Cells Not Reportable 08/05/19 05:16 Toxic Granulation Not Reportable 08/05/19 05:16 Toxic Vacuolation Not Reportable 08/05/19 05:16 Dohle Bodies Not Reportable 08/05/19 05:16 Pelger-Huet Anomaly Not Reportable 08/05/19 05:16 Cathie Rods Not Reportable 08/05/19 05:16 Platelet Estimate Consistent w auto 08/05/19 05:16 Clumped Platelets Not Reportable 08/05/19 05:16 Plt Clumps, EDTA Not Reportable 08/05/19 05:16 Large Platelets Not Reportable 08/05/19 05:16 Giant Platelets Not Reportable 08/05/19 05:16 Platelet Satelliting Not Reportable 08/05/19 05:16 Plt Morphology Comment Not Reportable 08/05/19 05:16 RBC Morphology Not Reportable 08/05/19 05:16 Dimorphic RBCs Not Reportable 08/05/19 05:16 Polychromasia Not Reportable 08/05/19 05:16 Hypochromasia Not Reportable 08/05/19 05:16 Poikilocytosis Not Reportable 08/05/19 05:16 Anisocytosis Not Reportable 08/05/19 05:16 Microcytosis Not Reportable 08/05/19 05:16 Macrocytosis Not Reportable 08/05/19 05:16 Spherocytes Not Reportable 08/05/19 05:16 Pappenheimer Bodies Not Reportable 08/05/19 05:16 Sickle Cells Not Reportable 08/05/19 05:16 Target Cells Not Reportable 08/05/19 05:16 Tear Drop Cells Not Reportable 08/05/19 05:16 Ovalocytes Not Reportable 08/05/19 05:16 Stomatocytes Rare 08/05/19 05:16 Helmet Cells Not Reportable 08/05/19 05:16 Sharpe-Lockridge Bodies Not Reportable 08/05/19 05:16 [place] Rings Not Reportable 08/05/19 05:16 Shahram Cells Rare 08/05/19 05:16 Bite Cells Not Reportable 08/05/19 05:16 Crenated Cell Not Reportable 08/05/19 05:16 Elliptocytes Few 08/05/19 05:16 Acanthocytes (Spur) Not Reportable 08/05/19 05:16 Rouleaux Not Reportable 08/05/19 05:16 Hemoglobin C Crystals Not Reportable 08/05/19 05:16 Schistocytes Not Reportable 08/05/19 05:16 Malaria parasites Not Reportable 08/05/19 05:16 [place] Bodies Not Reportable 08/05/19 05:16 Hem Pathologist Commnt No 08/05/19 05:16 PT 13.9 Sec. (12.2-14.9) 08/01/19 18:49 INR 1.08 (0.87-1.13) 08/01/19 18:49 APTT 30.8 Sec. (24.2-36.6) 08/01/19 18:49 Sodium 138 mmol/L (137-145) 08/08/19 08:27 Potassium 4.3 mmol/L (3.6-5.0) 08/08/19 08:27 Chloride 95.3 mmol/L (98-107) L 08/08/19 08:27 Carbon Dioxide 25 mmol/L (22-30) 08/08/19 08:27 Anion Gap 22 mmol/L 08/08/19 08:27 BUN 48 mg/dL (9-20) H 08/08/19 08:27 Creatinine 1.7 mg/dL (0.8-1.5) H 08/08/19 08:27 Estimated GFR 51 ml/min 08/08/19 08:27 BUN/Creatinine Ratio 28 % 08/08/19 08:27 Glucose 87 mg/dL (75-100) 08/08/19 08:27 POC Glucose 80 (70-105) 08/09/19 08:01 Hemoglobin A1c 5.9 % (4-6) 08/02/19 07:49 Calcium 8.7 mg/dL (8.4-10.2) 08/08/19 08:27 Total Bilirubin 1.20 mg/dL (0.1-1.2) 08/03/19 04:57 Direct Bilirubin 1.0 mg/dL (0-0.2) H 08/01/19 18:49 Indirect Bilirubin 0.8 mg/dL 08/01/19 18:49 AST 21 units/L (5-40) 08/03/19 04:57 ALT 20 units/L (7-56) 08/03/19 04:57 Alkaline Phosphatase 195 units/L (35-129) H 08/03/19 04:57 Lactate Dehydrogenase 199 units/L (91-180) H 08/03/19 17:01 Troponin T 0.054 ng/mL (0.00-0.029) H 08/02/19 00:28 C-Reactive Protein 0.90 mg/dL (0.00-1.30) 08/08/19 08:27 NT-Pro-B Natriuret Pep 82370 pg/mL (0-900) H 08/01/19 18:49 Total Protein 6.6 g/dL (6.3-8.2) 08/03/19 04:57 Albumin 2.9 g/dL (3.9-5) L 08/03/19 04:57 Albumin/Globulin Ratio 0.8 % 08/03/19 04:57 Triglycerides 69 mg/dL (2-149) 08/01/19 18:49 Cholesterol 131 mg/dL (50-199) 08/01/19 18:49 LDL Cholesterol Direct 88 mg/dL (50-130) 08/01/19 18:49 HDL Cholesterol 41 mg/dL (40-59) 08/01/19 18:49 Cholesterol/HDL Ratio 3.19 % 08/01/19 18:49 Fluid Type Pleural 08/07/19 20:20 Fluid Color Yellow 08/07/19 20:20 Fluid Appearance Cloudy 08/07/19 20:20 Fluid WBC 348 /mm3 08/07/19 20:20 Fluid RBC 669 /mm3 08/07/19 20:20 Fluid Seg Neutrophils 1.0 % 08/07/19 20:20 Fluid Lymphocytes 26.0 % 08/07/19 20:20 Fluid Reactive Lymphs 0 % 08/07/19 20:20 Fluid Monocytes 14.0 % 08/07/19 20:20 Fluid Eosinophils 59.0 % 08/07/19 20:20 Fluid Basophils 0 % 08/07/19 20:20 AFB Identification 08/07/19 20:20 Fungal Id Prelim 08/07/19 20:20 Active Medications - Current Medications Current Medications: Generic Name Dose Route Start Last Admin Trade Name Eliotq PRN Reason Stop Dose Admin Acetaminophen 650 mg 08/06/19 12:38 Tylenol PO Q4H PRN Pain MILD(1-3)/Fever >100.5/TRUJILLO Apixaban 5 mg 08/02/19 10:00 08/09/19 10:10 Eliquis PO 5 mg BID SOUMYA Administration Protocol Aspirin 81 mg 08/02/19 10:00 08/09/19 10:09 Baby Aspirin PO 81 mg QDAY SOUMYA Administration Atorvastatin Calcium 40 mg 08/02/19 22:00 08/08/19 21:25 Lipitor PO 40 mg QHS SOUMYA Administration Digoxin 0.25 mg 08/04/19 17:00 08/08/19 18:16 Lanoxin PO 0.25 mg Q48H SOUMYA Administration Docusate Sodium 100 mg 08/02/19 10:00 08/09/19 10:09 Colace PO 100 mg BID [facility] Administration Famotidine 20 mg 08/02/19 10:00 08/09/19 10:12 Pepcid PO 20 mg BID SOUMYA Administration Furosemide 40 mg 08/02/19 06:00 08/09/19 05:25 Lasix IV 40 mg 0600,1800 [facility] Administration Hydromorphone HCl 0.5 mg 08/02/19 01:32 08/08/19 05:29 Dilaudid IV 0.5 mg Q4H PRN Administration Pain , Severe (7-10) Vancomycin HCl 1 gm in 250 mls @ 166.667 mls/hr 08/09/19 06:00 08/09/19 05:25 Vancomycin/Ns 1 Gm/250 Ml IV 166.667 mls/hr Q12H [facility] Administration Insulin Human Lispro 0 unit 08/02/19 07:30 08/09/19 08:05 Humalog SUB-Q Not Given ACHS [facility] Protocol Metoclopramide HCl 10 mg 08/02/19 04:12 Reglan IV Q6H PRN Nausea And Vomiting Metoprolol Tartrate 50 mg 08/02/19 08:00 08/09/19 09:10 Metoprolol PO 50 mg TID [facility] Administration Metoprolol Tartrate 25 mg 08/02/19 08:00 08/09/19 09:10 Metoprolol PO 25 mg TID [facility] Administration Morphine Sulfate 2 mg 08/06/19 12:04 08/09/19 06:11 Morphine IV 2 mg Q4H PRN Administration Pain, Moderate (4-6) Nicotine 14 mg 08/02/19 10:00 08/09/19 10:10 Habitrol TD Not Given QDAY [facility] Ondansetron HCl 4 mg 08/02/19 04:12 Zofran IV Q8H PRN Nausea And Vomiting Oxycodone HCl 5 mg 08/02/19 04:18 08/07/19 11:02 Roxicodone PO 5 mg Q6H PRN Administration Pain, (7-10) Oxycodone/Acetaminophen 1 tab 08/02/19 04:09 08/07/19 20:08 Percocet 5/325 PO 1 tab Q6H PRN Administration Pain , Severe (7-10) Prednisone 20 mg 08/02/19 10:00 08/09/19 10:09 Deltasone PO 20 mg QDAY SOUMYA Administration Sodium Bicarbonate 1,300 mg 08/02/19 10:00 08/09/19 10:09 Sodium Bicarbonate PO 1,300 mg BID SOUMYA Administration Sodium Chloride 10 ml 08/02/19 04:12 08/04/19 06:17 Sodium Chloride Flush Syringe 10 Ml IV 10 ml PRN PRN Administration LINE FLUSH Sodium Chloride 10 ml 08/02/19 10:00 08/09/19 10:12 Sodium Chloride Flush Syringe 10 Ml IV 10 ml BID SOUMYA Administration Nutrition/Malnutrition Assess - Dietary Evaluation Nutrition/Malnutrition Findings: Nutrition Notes Start: 08/06/19 11:55 Freq: Status: Active Protocol: Document 08/06/19 11:55 CT (Rec: 08/06/19 12:16 CT [id number]) Co-Sign 08/06/19 11:55 LP Nutrition Notes Need for Assessment generated from: LOS Initial or Follow up Assessment Current Diagnosis COPD,Diabetes,Hypertension, Heart Failure Other Pertinent Diagnosis Renal failure, A-fib, staph infection, Plueral effusion, severe edema Current Diet Consistent CHO Labs/Tests BUN 41 Creatinine 1.8 Pertinent Medications Lasix Humalog Height 6 ft 1 in Weight 100 kg Usual Body Weight 73.482 kg [place] Body Weight (kg) 83.63 BMI 29.0 Weight change and time frame wt gain likely d/t severe edema Weight Status Overweight Subjective/Other Information LOS screen. Pt stated his doctor approved double portions and glucerna TID. Order was placed for double portions and glucerna. Discussed slightly liberalizing diet if blood glucose levels stay stable. Pt stated a 30 lb wt loss d/t fluid from pleural effusion. Pt is allergic to strawberries . Noted temporal and orbital wasting. Burn Absent Trauma Absent GI Symptoms None Current % PO Good (75-100%) Minimum of two criteria Yes Body Fat Depletion Moderate depletion (severe) Muscle Mass Moderate Depletion (severe) Fluid Accumulation Moderate to Severe (severe) #1 Nutrition Diagnosis Malnutrition Etiology chronic illness As Evidenced by Signs and Symptoms fat and muscle wasting, +4 pitting edema per physical assessment Is patient on ventilator? No Is Patient Ambulatory and/or Out of Bed Yes REE-([facility]-ambulatory/OOB) [ 2462.044 [id number]] Calculation Used for Recommendations Kirt Hardy Additional Notes Protein: 109-137 g/kg/day (1.2 -1.5 g/kg/day AdBW 91.8kg) Fluid: per MD Nutrition Intervention Change Diet Order: Continue Consistent CHO Add Supplement/Snack (indicate name/kcal Add glucerna Vanilla and /protein ) Chocolate TID Provides kCal: 660 Provides Protein (gm) 30 Goal #1 Meet >75% of energy and protein needs Anticipated Discharge Needs: Consistent CHO Follow-Up By: 08/09/19 Additional Comments Follow up for PO/ONS intakes.
[2019-08-09 12:27] LABS: Hematocrit 34.6 % (35.5-45.6); Hemoglobin 11.1 gm/dl (11.8-15.2); Mean Corpuscular HGB Conc 32 % (32-34); Mean Corpuscular Volume 89 fl (84-94); Platelet Count 198 K/mm3 (140-440); Red Blood Count 3.88 M/mm3 (3.65-5.03)
[2019-08-09 12:47] LABS: Calcium 8.7 mg/dL (8.4-10.2)
--- NOTE | 2019-08-09 13:21 | Progress Note ---
Assessment and Plan Patient alert, awake and resting on 3 litres O2. Patient has right chest tube placement. Chest tube drained significant amount of fluid. Recommend to send pleural fluid to cell count, LDH, Protein, Glucose, Amylase, Cytology, gram stain, C&S , AFB and fungus. Patient says breathing better. O2 saturation 94%. Pleural fluid cell count reported WBC 348, RBC 669. Rest of the pleural fluid results pending. Pleural fluid was cloudy, sent for triglycerides testing also. - Patient Problems (1) Acute and chronic respiratory failure Current Visit: No Status: Acute Qualifiers: Respiratory failure complication: hypoxia Qualified Code(s): J96.21 - Acute and chronic respiratory failure with hypoxia Plan to address problem: 1. O2 3 liters via nasal cannula. 2. albuterol and atrovent aerosol treatments q 6 hours 3. continue prednisone 4. continue levoquin 5. continue apixaban 6. Continue famotidine (2) CHF exacerbation Current Visit: Yes Status: Acute Plan to address problem: Pt is on IV lasix and management as per cardiology (3) Chest pain Current Visit: Yes Status: Acute Plan to address problem: Management as per cardiology (4) Chronic atrial fibrillation Current Visit: Yes Status: Acute Plan to address problem: Pt is on apixaban. Management as per cardiology. (5) Acute kidney injury superimposed on chronic kidney disease Current Visit: No Status: Acute Plan to address problem: management as per nephrology (6) COPD (chronic obstructive pulmonary disease) Current Visit: No Status: Acute Qualifiers: Chronic bronchitis type: mixed simple and mucopurulent Plan to address problem: 1. O2 3 liters via nasal cannula. 2. albuterol and atrovent aerosol treatments q 6 hours 3. continue prednisone 4. continue levoquin 5. continue apixaban 6. Continue famotidine 7. PFTs an out patient (7) Recurrent right pleural effusion Current Visit: No Status: Acute Plan to address problem: Patient has right chest tube placement. Patient draining clear fluid. recommend to send pleural fluid to cell count, LDH, Protein, Glucose, Amylase, Cytology, gram stain, C&S , AFB and fungus. Pleural fluid cell count reported WBC 348, RBC 669. Rest of the pleural fluid results pending. Pleural fluid is cloudy and was also sent for triglycerides testing Subjective Date of service: 08/09/19 Interval history: Patient alert, awake and resting on 3 litres O2. Patient has right chest tube placement. Chest tube drained significant amount of fluid. Recommend to send pleural fluid to cell count, LDH, Protein, Glucose, Amylase, Cytology, gram stain, C&S , AFB and fungus. Patient says breathing better. O2 saturation 94%. Pleural fluid cell count reported WBC 348, RBC 669. Rest of the pleural fluid results pending. Pleural fluid was cloudy, sent for triglycerides testing also. Objective Vital Signs - 12hr 08/09/19 08/09/19 08/09/19 05:00 07:51 09:10 Temperature 98.0 F 98.3 F Pulse Rate 60 76 Respiratory 18 18 Rate Blood Pressure 109/75 114/78 121/75 O2 Sat by Pulse 94 Oximetry Constitutional: no acute distress, alert Eyes: non-icteric Ascultation: Right: diminished breath sounds (base) Cardiovascular: irregular rhythm Gastrointestinal: normoactive bowel sounds, soft, non-tender Integumentary: normal, other (Wound on right lower leg.) Extremities: no cyanosis, edema (bilateral) Neurologic: non-focal exam, pupils equal and round, CN II-XII normal Psychiatric: anxious CBC and BMP: 08/09/19 11:44 08/09/19 11:44 ABG, PT/INR, D-dimer: PT/INR, D-dimer PT 13.9 Sec. (12.2-14.9) 08/01/19 18:49 INR 1.08 (0.87-1.13) 08/01/19 18:49 Abnormal lab findings: Abnormal Labs 08/01/19 08/01/19 08/01/19 18:49 18:49 18:49 WBC Hgb 11.6 L Hct RDW 19.3 H Lymph % (Auto) 10.0 L Vance % (Auto) 9.5 H Lymph # 1.0 L Vance # 0.9 H Seg Neutrophils % 79.2 H Seg Neuts % (Manual) Lymphocytes % (Manual) Seg Neutrophils # Seg Neutrophils # Man Lymphocytes # (Manual) Sodium Chloride Carbon Dioxide 21 L BUN Creatinine Glucose POC Glucose Calcium Total Bilirubin 1.80 H Direct Bilirubin 1.0 H Alkaline Phosphatase 212 H Lactate Dehydrogenase Troponin T 0.044 H NT-Pro-B Natriuret Pep 80659 H Albumin 3.4 L 08/01/19 08/02/19 08/02/19 21:07 00:28 10:14 WBC Hgb Hct RDW Lymph % (Auto) Vance % (Auto) Lymph # Vance # Seg Neutrophils % Seg Neuts % (Manual) Lymphocytes % (Manual) Seg Neutrophils # Seg Neutrophils # Man Lymphocytes # (Manual) Sodium Chloride Carbon Dioxide BUN Creatinine Glucose POC Glucose 115 H Calcium Total Bilirubin Direct Bilirubin Alkaline Phosphatase Lactate Dehydrogenase Troponin T 0.049 H 0.054 H NT-Pro-B Natriuret Pep Albumin 08/02/19 08/02/19 08/02/19 11:18 16:04 21:51 WBC Hgb Hct RDW Lymph % (Auto) Vance % (Auto) Lymph # Vance # Seg Neutrophils % Seg Neuts % (Manual) Lymphocytes % (Manual) Seg Neutrophils # Seg Neutrophils # Man Lymphocytes # (Manual) Sodium Chloride Carbon Dioxide BUN Creatinine Glucose POC Glucose 144 H 126 H 130 H Calcium Total Bilirubin Direct Bilirubin Alkaline Phosphatase Lactate Dehydrogenase Troponin T NT-Pro-B Natriuret Pep Albumin 08/03/19 08/03/19 08/03/19 04:57 04:57 16:36 WBC Hgb 11.0 L Hct 34.3 L RDW 19.4 H Lymph % (Auto) 9.5 L Vance % (Auto) Lymph # 0.9 L Vance # Seg Neutrophils % 83.0 H Seg Neuts % (Manual) Lymphocytes % (Manual) Seg Neutrophils # 8.2 H Seg Neutrophils # Man Lymphocytes # (Manual) Sodium Chloride Carbon Dioxide BUN 30 H Creatinine 2.1 H D Glucose 140 H POC Glucose 142 H Calcium 8.1 L Total Bilirubin Direct Bilirubin Alkaline Phosphatase 195 H Lactate Dehydrogenase Troponin T NT-Pro-B Natriuret Pep Albumin 2.9 L 08/03/19 08/03/19 08/04/19 17:01 21:12 11:31 WBC Hgb Hct RDW Lymph % (Auto) Vance % (Auto) Lymph # Vance # Seg Neutrophils % Seg Neuts % (Manual) Lymphocytes % (Manual) Seg Neutrophils # Seg Neutrophils # Man Lymphocytes # (Manual) Sodium Chloride Carbon Dioxide BUN Creatinine Glucose POC Glucose 158 H 59 L Calcium Total Bilirubin Direct Bilirubin Alkaline Phosphatase Lactate Dehydrogenase 199 H Troponin T NT-Pro-B Natriuret Pep Albumin 08/04/19 08/04/19 08/05/19 16:07 21:05 05:16 WBC Hgb 10.9 L Hct 34.0 L RDW 19.4 H Lymph % (Auto) Vance % (Auto) Lymph # Vance # Seg Neutrophils % Seg Neuts % (Manual) 89.0 H Lymphocytes % (Manual) 5.0 L Seg Neutrophils # Seg Neutrophils # Man 8.3 H Lymphocytes # (Manual) 0.5 L Sodium Chloride Carbon Dioxide BUN Creatinine Glucose POC Glucose 174 H 118 H Calcium Total Bilirubin Direct Bilirubin Alkaline Phosphatase Lactate Dehydrogenase Troponin T NT-Pro-B Natriuret Pep Albumin 08/05/19 08/05/19 08/06/19 05:16 20:35 06:07 WBC 11.9 H Hgb 11.4 L Hct 35.0 L RDW 19.3 H Lymph % (Auto) 10.3 L Vance % (Auto) 7.7 H Lymph # Vance # 0.9 H Seg Neutrophils % 81.3 H Seg Neuts % (Manual) Lymphocytes % (Manual) Seg Neutrophils # 9.7 H Seg Neutrophils # Man Lymphocytes # (Manual) Sodium 136 L Chloride Carbon Dioxide BUN 38 H Creatinine 1.9 H Glucose 160 H POC Glucose 125 H Calcium Total Bilirubin Direct Bilirubin Alkaline Phosphatase Lactate Dehydrogenase Troponin T NT-Pro-B Natriuret Pep Albumin 08/06/19 08/06/19 08/06/19 06:07 11:44 15:40 WBC Hgb Hct RDW Lymph % (Auto) Vance % (Auto) Lymph # Vance # Seg Neutrophils % Seg Neuts % (Manual) Lymphocytes % (Manual) Seg Neutrophils # Seg Neutrophils # Man Lymphocytes # (Manual) Sodium Chloride 97.5 L Carbon Dioxide BUN 41 H Creatinine 1.8 H Glucose POC Glucose 123 H 154 H Calcium Total Bilirubin Direct Bilirubin Alkaline Phosphatase Lactate Dehydrogenase Troponin T NT-Pro-B Natriuret Pep Albumin 08/06/19 08/07/19 08/07/19 21:22 08:56 08:56 WBC Hgb 11.6 L Hct RDW 18.8 H Lymph % (Auto) Vance % (Auto) Lymph # Vance # Seg Neutrophils % Seg Neuts % (Manual) Lymphocytes % (Manual) Seg Neutrophils # Seg Neutrophils # Man Lymphocytes # (Manual) Sodium Chloride 95.0 L Carbon Dioxide BUN 42 H Creatinine 1.8 H Glucose POC Glucose 108 H Calcium Total Bilirubin Direct Bilirubin Alkaline Phosphatase Lactate Dehydrogenase Troponin T NT-Pro-B Natriuret Pep Albumin 08/07/19 08/07/19 08/07/19 12:39 16:31 20:50 WBC Hgb Hct RDW Lymph % (Auto) Vance % (Auto) Lymph # Vance # Seg Neutrophils % Seg Neuts % (Manual) Lymphocytes % (Manual) Seg Neutrophils # Seg Neutrophils # Man Lymphocytes # (Manual) Sodium Chloride Carbon Dioxide BUN Creatinine Glucose POC Glucose 110 H 132 H 126 H Calcium Total Bilirubin Direct Bilirubin Alkaline Phosphatase Lactate Dehydrogenase Troponin T NT-Pro-B Natriuret Pep Albumin 08/08/19 08/08/19 08/08/19 08:27 08:27 16:14 WBC Hgb 11.6 L Hct RDW 18.9 H Lymph % (Auto) Vance % (Auto) Lymph # Vance # Seg Neutrophils % Seg Neuts % (Manual) Lymphocytes % (Manual) Seg Neutrophils # Seg Neutrophils # Man Lymphocytes # (Manual) Sodium Chloride 95.3 L Carbon Dioxide BUN 48 H Creatinine 1.7 H Glucose POC Glucose 155 H Calcium Total Bilirubin Direct Bilirubin Alkaline Phosphatase Lactate Dehydrogenase Troponin T NT-Pro-B Natriuret Pep Albumin 08/08/19 08/09/19 08/09/19 21:24 11:44 11:44 WBC Hgb 11.1 L Hct 34.6 L RDW 19.0 H Lymph % (Auto) Vance % (Auto) Lymph # Vance # Seg Neutrophils % Seg Neuts % (Manual) Lymphocytes % (Manual) Seg Neutrophils # Seg Neutrophils # Man Lymphocytes # (Manual) Sodium 134 L Chloride 91.2 L Carbon Dioxide BUN 51 H Creatinine 1.8 H Glucose 140 H POC Glucose 123 H Calcium Total Bilirubin Direct Bilirubin Alkaline Phosphatase Lactate Dehydrogenase Troponin T NT-Pro-B Natriuret Pep Albumin 08/09/19 13:02 WBC Hgb Hct RDW Lymph % (Auto) Vance % (Auto) Lymph # Vance # Seg Neutrophils % Seg Neuts % (Manual) Lymphocytes % (Manual) Seg Neutrophils # Seg Neutrophils # Man Lymphocytes # (Manual) Sodium Chloride Carbon Dioxide BUN Creatinine Glucose POC Glucose 150 H Calcium Total Bilirubin Direct Bilirubin Alkaline Phosphatase Lactate Dehydrogenase Troponin T NT-Pro-B Natriuret Pep Albumin
--- NOTE | 2019-08-09 13:36 | Nuclear Medicine Report ---
NUCLEAR MEDICINE BONE SCAN, THREE PHASE INDICATION / CLINICAL INFORMATION: eval for left ankle hardware infection / osteomyel. TECHNIQUE: 25 mCi of Tc-99m MDP were injected IV. Images were acquired in 3 phases over the ankles and feet. COMPARISON: Left ankle radiograph from 08/08/2019 FINDINGS: BLOOD FLOW IMAGES (immediate): Increased blood flow to the left ankle and foot. BLOOD POOL (5-10 min.): Asymmetrically increased activity at the left ankle and foot, particularly do rsolaterally ROUTINE (2-4 hr): Persistence of abnormal, asymmetrically increased tracer activity on the left, loca lizing to the talus and midfoot ADDITIONAL FINDINGS: None. IMPRESSION: 1. Positive study in all 3 phases suggesting infection at the left ankle. Signer Name: Lion Amezquita MD Signed: 08/09/2019 1:32 PM Workstation Name: [id number]
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
--- NOTE | 2019-08-09 15:55 | Progress Note ---
Assessment and Plan - Patient Problems (1) Acute kidney injury superimposed on chronic kidney disease Current Visit: No Status: Acute Plan to address problem: Acute kidney injury superimposed on chronic kidney disease Baseline creatinine about 1.2 1.3 Worsening renal function in the setting of significant volume overload We'll give chlorothiazide Increase Lasix to 80 mg IV twice a day Strict I's and O's daily weights (2) CHF exacerbation Current Visit: Yes Status: Acute Plan to address problem: Congestive heart failure I reviewed Echocardiogram EF 10% We'll increase diuretic dose Needs daily weights salt and fluid RESTRICTION (3) Recurrent right pleural effusion Current Visit: No Status: Acute Plan to address problem: Recurrence right pleural effusion status post catheter placement Management per surgery Continue diuresis (4) Hyponatremia Current Visit: Yes Status: Acute Plan to address problem: Hyponatremia Fluid restriction continue diuresis Subjective Interval history: 54-year-old gentleman with congestive heart failure volume overload and respiratory failure nephrology consulted for acute kidney injury Patient seen today reports significant lower extremity edema Status post thoracentesis Reports shortness of breath is improving Objective - Vital Signs Vital signs: Vital Signs - 12hr 08/09/19 08/09/19 08/09/19 05:00 07:51 09:10 Temperature 98.0 F 98.3 F Pulse Rate 60 76 Respiratory 18 18 Rate Blood Pressure 109/75 114/78 121/75 O2 Sat by Pulse 94 Oximetry 08/09/19 08/09/19 14:57 14:58 Temperature Pulse Rate 68 Respiratory 16 Rate Blood Pressure 110/64 O2 Sat by Pulse Oximetry - General Appearance General appearance: well-developed, well-nourished EENT: ATNC, PERRL Neck: no JVD Respiratory: Present: Clear to Ascultation Cardiology: regular, S1S2 Gastrointestinal: normal, normoactive bowel sounds Integumentary: no rash Neurologic: no focal deficit, CN 3-12 intact Psychiatric: mood/affect appropriate - Lab 08/09/19 11:44 08/09/19 11:44 Most recent lab results Calcium 8.7 mg/dL (8.4-10.2) 08/09/19 11:44 - Imaging Chest x-ray: image reviewed (I reviewed chest x-ray with pulmonary congestion right-sided pleural effusion) Medications & Allergies - Medications Allergies/Adverse Reactions: Allergies Penicillins Allergy (Verified 03/05/19 22:41) Itching strawberry Allergy (Verified 03/05/19 22:41) Hives Home Medications: Home Medications Medication Instructions Recorded Confirmed Last Taken Type Aspirin [Aspirin BABY CHEW TAB] 81 mg PO QDAY #30 tab.chew 03/14/19 08/02/19 07/19/19 15:57 Rx Acetaminophen [Acetaminophen TAB] 2 tab PO Q4H PRN #15 tablet 06/25/19 08/02/19 07/19/19 15:58 Rx Apixaban [Eliquis] 1 tab PO BID #60 tablet 07/24/19 08/02/19 Unknown Rx AtorvaSTATin [Lipitor] 40 mg PO QHS #30 tablet 07/24/19 08/02/19 Unknown Rx Colchicine 0.6 mg PO QDAY #10 capsule 07/24/19 08/02/19 Unknown Rx Digoxin [Lanoxin] 0.25 mg PO DAILY@1700 #30 tablet 07/24/19 08/02/19 Unknown Rx Docusate Sodium [Colace CAP] 100 mg PO BID capsule 07/24/19 08/02/19 Unknown Rx Metoprolol [Lopressor TAB] 75 mg PO TID #90 tablet 07/24/19 08/02/19 Unknown Rx Nicotine [Habitrol] 14 mg TD QDAY #30 patch 07/24/19 08/02/19 Unknown Rx Oxycodone HCl/Acetaminophen 1 each PO Q6HR PRN #20 tablet 07/24/19 08/02/19 Un known Rx [Percocet 10/325 mg] Sodium Bicarbonate 1,300 mg PO BID #90 tablet 07/24/19 08/02/19 Unknown Rx Torsemide [Demadex] 100 mg PO DAILY@0600 #30 tablet 07/24/19 08/02/19 Unknown Rx guaiFENesin ER [Mucinex ER] 600 mg PO BID #60 tablet 07/24/19 08/02/19 Unknown Rx oxyCODONE /ACETAMINOPHEN [Percocet 1 tab PO Q6H PRN tablet 07/24/19 08/02/19 Unknown Rx 5/325 mg] predniSONE [Deltasone] 20 mg PO QDAY #7 tablet 07/24/19 08/02/19 Unknown Rx Active Medications: Generic Name Dose Route Start Last Admin Trade Name Freq PRN Reason Stop Dose Admin Acetaminophen 650 mg 08/06/19 12:38 Tylenol PO Q4H PRN Pain MILD(1-3)/Fever >100.5/TRUJILLO Apixaban 5 mg 08/02/19 10:00 08/09/19 10:10 Eliquis PO 5 mg BID SOUMYA Administration Protocol Aspirin 81 mg 08/02/19 10:00 08/09/19 10:09 Baby Aspirin PO 81 mg QDAY [facility] Administration Atorvastatin Calcium 40 mg 08/02/19 22:00 08/08/19 21:25 Lipitor PO 40 mg QHS SOUMYA Administration Chlorothiazide Sodium 500 mg 08/09/19 17:00 Diuril IV 08/09/19 17:01 ONCE ONE Digoxin 0.25 mg 08/04/19 17:00 08/08/19 18:16 Lanoxin PO 0.25 mg Q48H SOUMYA Administration Docusate Sodium 100 mg 08/02/19 10:00 08/09/19 10:09 Colace PO 100 mg BID [facility] Administration Famotidine 20 mg 08/02/19 10:00 08/09/19 10:12 Pepcid PO 20 mg BID [facility] Administration Furosemide 80 mg 08/09/19 18:00 Lasix IV 0900,1800 [facility] Hydromorphone HCl 0.5 mg 08/02/19 01:32 08/08/19 05:29 Dilaudid IV 0.5 mg Q4H PRN Administration Pain , Severe (7-10) Cefazolin Sodium 2 gm/ Sodium 100 mls @ 200 mls/hr 08/09/19 16:00 Chloride IV Q8HR [facility] Insulin Human Lispro 0 unit 08/02/19 07:30 08/09/19 12:00 Humalog SUB-Q 2 unit ACHS [facility] Administration Protocol Metoclopramide HCl 10 mg 08/02/19 04:12 Reglan IV Q6H PRN Nausea And Vomiting Metoprolol Tartrate 50 mg 08/02/19 08:00 08/09/19 14:57 Metoprolol PO 50 mg TID SOUMYA Administration Metoprolol Tartrate 25 mg 08/02/19 08:00 08/09/19 09:10 Metoprolol PO 25 mg TID SOUMYA Administration Morphine Sulfate 2 mg 08/06/19 12:04 08/09/19 14:58 Morphine IV 2 mg Q4H PRN Administration Pain, Moderate (4-6) Nicotine 14 mg 08/02/19 10:00 08/09/19 10:10 Habitrol TD Not Given QDAY SOUMYA Ondansetron HCl 4 mg 08/02/19 04:12 Zofran IV Q8H PRN Nausea And Vomiting Oxycodone HCl 5 mg 08/02/19 04:18 08/07/19 11:02 Roxicodone PO 5 mg Q6H PRN Administration Pain, (7-10) Oxycodone/Acetaminophen 1 tab 08/02/19 04:09 08/07/19 20:08 Percocet 5/325 PO 1 tab Q6H PRN Administration Pain , Severe (7-10) Prednisone 20 mg 08/02/19 10:00 08/09/19 10:09 Deltasone PO 20 mg QDAY SOUMYA Administration Sodium Bicarbonate 1,300 mg 08/02/19 10:00 08/09/19 10:09 Sodium Bicarbonate PO 1,300 mg BID SOUMYA Administration Sodium Chloride 10 ml 08/02/19 04:12 08/04/19 06:17 Sodium Chloride Flush Syringe 10 Ml IV 10 ml PRN PRN Administration LINE FLUSH Sodium Chloride 10 ml 08/02/19 10:00 08/09/19 10:12 Sodium Chloride Flush Syringe 10 Ml IV 10 ml BID SOUMYA Administration
[2019-08-09] MEDS ORDERED: CHLOROTHIAZIDE 500 MG VIAL IV ONE (17:00)
[2019-08-09] MEDS ORDERED: CHLOROTHIAZIDE SODIUM IV ONE (18:00)
[2019-08-09] MEDS ORDERED: SODIUM CHLORIDE 0.9% IV ONE (18:00)
[2019-08-09] MEDS ORDERED: ceFAZolin/Water 2 GM/20 ML 2 GM/20 ML SYRINGE IV NR (22:00)
[2019-08-09] MEDS: oxyCODONE 5 MG TAB PO PRN (23:27)
[2019-08-10] MEDS: MORPHINE 2 MG/1 ML INJ IV PRN ×4 (01:17→20:31)
[2019-08-10] MEDS: HYDROmorphone 1 MG/1 ML INJ IV PRN (06:28)
[2019-08-10 06:40] LABS: Calcium 8.7 mg/dL (8.4-10.2)
--- NOTE | 2019-08-10 09:13 | XRay Report ---
CHEST 1 VIEW INDICATION: right pleural effusion. COMPARISON: 08/05/2019 FINDINGS: Pigtail catheter at the right lung base is unchanged. The right pleural effusion has nearly resolved. Mild right basilar atelectasis remains. Otherwise, the lungs are clear. Mild interval decrease in ca rdiomegaly and pulmonary venous congestion. No pneumothorax. Single lead pacemaker device remains in the same position. IMPRESSION: Mild improvement in CHF. Right pleural effusion has nearly resolved. Right basilar atelectasis is no melita. Signer Name: Tenzin Vallejo Jr, MD Signed: 08/10/2019 9:08 AM Workstation Name: [id number]
[2019-08-10] MEDS: INSULIN LISPRO 100 UNIT/ML SUB-Q SCH ×4 (09:50→22:05)
[2019-08-10] MEDS: DOCUSATE SODIUM 100 MG CAP PO SCH ×2 (09:53→21:12)
[2019-08-10] MEDS: predniSONE 20 MG TAB PO SCH (09:53)
[2019-08-10] MEDS: SODIUM BICARBONATE 650 MG TAB PO SCH (09:53)
[2019-08-10] MEDS: FAMOTIDINE 20 MG TAB PO SCH ×2 (09:53→21:09)
[2019-08-10] MEDS: APIXABAN 5 MG TAB PO SCH ×2 (09:53→21:11)
[2019-08-10] MEDS: NICOTINE 14 MG/24 HR PATCH TD SCH ×2 (09:53→10:00)
[2019-08-10] MEDS: METOPROLOL TARTRATE 25 MG TAB PO SCH ×3 (09:54→21:11)
[2019-08-10] MEDS: ASPIRIN 81 MG TAB CHEW PO SCH (09:54)
[2019-08-10] MEDS: FUROSEMIDE 40 MG/4 ML INJ IV SCH ×2 (09:55→16:59)
[2019-08-10] MEDS: METOPROLOL TARTRATE 50 MG TAB PO SCH ×3 (10:12→21:09)
[2019-08-10] MEDS: oxyCODONE /ACETAMINOPHEN 5-325MG TAB PO PRN (11:13)
--- NOTE | 2019-08-10 11:30 | Progress Note ---
Assessment and Plan Recurrent Pleural effusion s/p thoracentesis s/p right chest tube Chronic systolic heart failure Chronic renal failure LLE ulcer -culture 08/03/2019 +MSSA Chronic atrial fibrillation on Eliquis for oral anticoagulation as an outpatient rate controlled with metoprolol and digoxin; dig level at 0.7 today Hx of Nonischemic cardiomyopathy EF 15-20% by echo 11/2018 Presence of the ICD an interrogation this admission reports no ventricular arrhythmias or ICD discharge; a normal functioning device. Essential hypertension Type 2 diabetes mellitus Chronic obstructive pulmonary disease Recommendations: Continue fluid/sodium restriction. Continue medical therapy for chronic systolic heart failure and rate controlling agents for chronic atrial fibrillation. We will follow intermittently. Subjective Date of service: 08/10/19 Interval history: No cardiac events overnight. Afib with a well controlled ventricular rate on telemetry. Objective Vital Signs Temp Pulse Pulse Resp BP Pulse Ox 08/10/19 10:12 68 08/10/19 10:00 98 08/10/19 09:54 63 08/10/19 07:58 98.1 F 59 L 18 102/76 93 08/10/19 07:06 78 99 08/10/19 03:41 97.6 F 57 L 18 110/68 97 08/09/19 23:38 97.7 F 58 L 18 105/63 97 08/09/19 22:00 60 08/09/19 20:17 100 08/09/19 20:16 73 108/67 08/09/19 19:25 98.2 F 58 L 16 107/68 95 08/09/19 17:54 56 L 115/73 100 08/09/19 15:41 102/61 08/09/19 14:58 16 08/09/19 14:57 68 110/64 - Physical Examination General: No Apparent Distress HEENT: Positive: PERRL Neck: Positive: trachea midline Cardiac: Positive: irregularly irregular Lungs: Positive: Other (right chest tube) Neuro: Positive: Grossly Intact Extremities: Present: edema, Other (LLE ulcer) - Labs and Meds CBC 08/09/19 Range/Units 11:44 WBC 10.0 (4.5-11.0) K/mm3 RBC 3.88 (3.65-5.03) M/mm3 Hgb 11.1 L (11.8-15.2) gm/dl Hct 34.6 L (35.5-45.6) % Plt Count 198 (140-440) K/mm3 Comprehensive Metabolic Panel 08/09/19 08/10/19 Range/Units 11:44 05:56 Sodium 134 L 136 L (137-145) mmol/L Potassium 3.9 4.3 (3.6-5.0) mmol/L Chloride 91.2 L 94.1 L (98-107) mmol/L Carbon Dioxide 29 25 (22-30) mmol/L BUN 51 H 50 H (9-20) mg/dL Creatinine 1.8 H 1.6 H (0.8-1.5) mg/dL Glucose 140 H 100 (75-100) mg/dL Calcium 8.7 8.7 (8.4-10.2) mg/dL - Allied health notes Allied health notes reviewed: nursing
--- NOTE | 2019-08-10 13:41 | Progress Note ---
Assessment and Plan Patient alert, awake . On room air. Not using O2 as recommended. Patient has right chest tube placement. Chest tube drained significant amount of fluid. Recommend to send pleural fluid to cell count, LDH, Protein, Glucose, Amylase, Cytology, gram stain, C&S , AFB and fungus. Patient says breathing better. O2 saturation 93%. Pleural fluid cell count reported WBC 348, RBC 669. Rest of the pleural fluid results pending. Pleural fluid was cloudy, sent for triglycerides testing also.. - Patient Problems (1) Acute and chronic respiratory failure Current Visit: No Status: Acute Qualifiers: Respiratory failure complication: hypoxia Qualified Code(s): J96.21 - Acute and chronic respiratory failure with hypoxia Plan to address problem: 1. O2 3 liters via nasal cannula. 2. albuterol and atrovent aerosol treatments q 6 hours 3. continue prednisone 4. continue levoquin 5. continue apixaban 6. Continue famotidine (2) CHF exacerbation Current Visit: Yes Status: Acute Plan to address problem: Pt is on IV lasix and management as per cardiology (3) Chest pain Current Visit: Yes Status: Acute Plan to address problem: Management as per cardiology (4) Chronic atrial fibrillation Current Visit: Yes Status: Acute Plan to address problem: Pt is on apixaban. Management as per cardiology. (5) Acute kidney injury superimposed on chronic kidney disease Current Visit: No Status: Acute Plan to address problem: management as per nephrology (6) COPD (chronic obstructive pulmonary disease) Current Visit: No Status: Acute Qualifiers: Chronic bronchitis type: mixed simple and mucopurulent Plan to address problem: 1. O2 3 liters via nasal cannula. 2. albuterol and atrovent aerosol treatments q 6 hours 3. continue prednisone 4. continue levoquin 5. continue apixaban 6. Continue famotidine 7. PFTs an out patient (7) Recurrent right pleural effusion Current Visit: No Status: Acute Plan to address problem: Patient has right chest tube placement. Patient draining cloudy fluid. recommend to send pleural fluid to cell count, LDH, Protein, Glucose, Amylase, Cytology, gram stain, C&S , AFB and fungus. Pleural fluid cell count reported WBC 348, RBC 669. Rest of the pleural fluid results pending. Pleural fluid is cloudy and was also sent for triglycerides testing Subjective Date of service: 08/10/19 Interval history: Patient alert, awake . On room air. Not using O2 as recommended. Patient has ri ght chest tube placement. Chest tube drained significant amount of fluid. Recommend to send pleural fluid to cell count, LDH, Protein, Glucose, Amylase, Cytology, gram stain, C&S , AFB and fungus. Patient says breathing better. O2 saturation 93%. Pleural fluid cell count reported WBC 348, RBC 669. Rest of the pleural fluid results pending. Pleural fluid was cloudy, sent for triglycerides testing also. Objective Vital Signs - 12hr 08/10/19 08/10/19 08/10/19 03:41 07:06 07:58 Temperature 97.6 F 98.1 F Pulse Rate 57 L 59 L Pulse Rate [ 78 Apical] Respiratory 18 18 Rate Blood Pressure 110/68 102/76 O2 Sat by Pulse 97 99 93 Oximetry 08/10/19 08/10/19 08/10/19 09:54 10:00 10:12 Temperature Pulse Rate 63 68 Pulse Rate [ Apical] Respiratory Rate Blood Pressure O2 Sat by Pulse 98 Oximetry Constitutional: no acute distress, alert, appears uncomfortable Eyes: non-icteric ENT: oropharynx moist Neck: supple, no lymphadenopathy, no JVD Effort: mildly labored Ascultation: Right: diminished breath sounds (base) Cardiovascular: irregular rhythm, other (S1,S2) Gastrointestinal: normoactive bowel sounds, soft, non-tender Integumentary: normal, other (Wound on right lower leg.) Extremities: no cyanosis, edema (bilateral) Neurologic: normal mental status, non-focal exam, pupils equal and round, CN II- XII normal, motor strength normal and Psychiatric: mood appropriate, affect normal CBC and BMP: 08/09/19 11:44 08/10/19 05:56 ABG, PT/INR, D-dimer: ABG POC ABG pH 7.407 (7.35-7.45) 08/10/19 10:27 POC ABG pCO2 48.6 (35-45) H 08/10/19 10:27 POC ABG pO2 117 (80-105) H 08/10/19 10:27 POC ABG HCO3 30.6 (22-26 mml/L) 08/10/19 10:27 POC ABG Total CO2 32 (23-27mmol/L) 08/10/19 10:27 POC ABG O2 Sat 99 08/10/19 10:27 PT/INR, D-dimer PT 13.9 Sec. (12.2-14.9) 08/01/19 18:49 INR 1.08 (0.87-1.13) 08/01/19 18:49 Abnormal lab findings: Abnormal Labs 08/01/19 08/01/19 08/01/19 18:49 18:49 18:49 WBC Hgb 11.6 L Hct RDW 19.3 H Lymph % (Auto) 10.0 L Harney % (Auto) 9.5 H Lymph # 1.0 L Harney # 0.9 H Seg Neutrophils % 79.2 H Seg Neuts % (Manual) Lymphocytes % (Manual) Seg Neutrophils # Seg Neutrophils # Man Lymphocytes # (Manual) POC ABG pCO2 POC ABG pO2 Sodium Chloride Carbon Dioxide 21 L BUN Creatinine Glucose POC Glucose Calcium Total Bilirubin 1.80 H Direct Bilirubin 1.0 H Alkaline Phosphatase 212 H Lactate Dehydrogenase Troponin T 0.044 H NT-Pro-B Natriuret Pep 83080 H Albumin 3.4 L Digoxin 08/01/19 08/02/19 08/02/19 21:07 00:28 10:14 WBC Hgb Hct RDW Lymph % (Auto) Harney % (Auto) Lymph # [place] # Seg Neutrophils % Seg Neuts % (Manual) Lymphocytes % (Manual) Seg Neutrophils # Seg Neutrophils # Man Lymphocytes # (Manual) POC ABG pCO2 POC ABG pO2 Sodium Chloride Carbon Dioxide BUN Creatinine Glucose POC Glucose 115 H Calcium Total Bilirubin Direct Bilirubin Alkaline Phosphatase Lactate Dehydrogenase Troponin T 0.049 H 0.054 H NT-Pro-B Natriuret Pep Albumin Digoxin 08/02/19 08/02/19 08/02/19 11:18 16:04 21:51 WBC Hgb Hct RDW Lymph % (Auto) Har[place] % (Auto) Lymph # [place] # Seg Neutrophils % Seg Neuts % (Manual) Lymphocytes % (Manual) Seg Neutrophils # Seg Neutrophils # Man Lymphocytes # (Manual) POC ABG pCO2 POC ABG pO2 Sodium Chloride Carbon Dioxide BUN Creatinine Glucose POC Glucose 144 H 126 H 130 H Calcium Total Bilirubin Direct Bilirubin Alkaline Phosphatase Lactate Dehydrogenase Troponin T NT-Pro-B Natriuret Pep Albumin Digoxin 08/03/19 08/03/19 08/03/19 04:57 04:57 16:36 WBC Hgb 11.0 L Hct 34.3 L RDW 19.4 H Lymph % (Auto) 9.5 L Har[place] % (Auto) Lymph # 0.9 L [place] # Seg Neutrophils % 83.0 H Seg Neuts % (Manual) Lymphocytes % (Manual) Seg Neutrophils # 8.2 H Seg Neutrophils # Man Lymphocytes # (Manual) POC ABG pCO2 POC ABG pO2 Sodium Chloride Carbon Dioxide BUN 30 H Creatinine 2.1 H D Glucose 140 H POC Glucose 142 H Calcium 8.1 L Total Bilirubin Direct Bilirubin Alkaline Phosphatase 195 H Lactate Dehydrogenase Troponin T NT-Pro-B Natriuret Pep Albumin 2.9 L Digoxin 08/03/19 08/03/19 08/04/19 17:01 21:12 11:31 WBC Hgb Hct RDW Lymph % (Auto) [place] % (Auto) Lymph # [place] # Seg Neutrophils % Seg Neuts % (Manual) Lymphocytes % (Manual) Seg Neutrophils # Seg Neutrophils # Man Lymphocytes # (Manual) POC ABG pCO2 POC ABG pO2 Sodium Chloride Carbon Dioxide BUN Creatinine Glucose POC Glucose 158 H 59 L Calcium Total Bilirubin Direct Bilirubin Alkaline Phosphatase Lactate Dehydrogenase 199 H Troponin T NT-Pro-B Natriuret Pep Albumin Digoxin 08/04/19 08/04/19 08/05/19 16:07 21:05 05:16 WBC Hgb 10.9 L Hct 34.0 L RDW 19.4 H Lymph % (Auto) [place] % (Auto) Lymph # [place] # Seg Neutrophils % Seg Neuts % (Manual) 89.0 H Lymphocytes % (Manual) 5.0 L Seg Neutrophils # Seg Neutrophils # Man 8.3 H Lymphocytes # (Manual) 0.5 L POC ABG pCO2 POC ABG pO2 Sodium Chloride Carbon Dioxide BUN Creatinine Glucose POC Glucose 174 H 118 H Calcium Total Bilirubin Direct Bilirubin Alkaline Phosphatase Lactate Dehydrogenase Troponin T NT-Pro-B Natriuret Pep Albumin Digoxin 08/05/19 08/05/19 08/06/19 05:16 20:35 06:07 WBC 11.9 H Hgb 11.4 L Hct 35.0 L RDW 19.3 H Lymph % (Auto) 10.3 L Har[place] % (Auto) 7.7 H Lymph # Harney # 0.9 H Seg Neutrophils % 81.3 H Seg Neuts % (Manual) Lymphocytes % (Manual) Seg Neutrophils # 9.7 H Seg Neutrophils # Man Lymphocytes # (Manual) POC ABG pCO2 POC ABG pO2 Sodium 136 L Chloride Carbon Dioxide BUN 38 H Creatinine 1.9 H Glucose 160 H POC Glucose 125 H Calcium Total Bilirubin Direct Bilirubin Alkaline Phosphatase Lactate Dehydrogenase Troponin T NT-Pro-B Natriuret Pep Albumin Digoxin 08/06/19 08/06/19 08/06/19 06:07 11:44 15:40 WBC Hgb Hct RDW Lymph % (Auto) [place] % (Auto) Lymph # [place] # Seg Neutrophils % Seg Neuts % (Manual) Lymphocytes % (Manual) Seg Neutrophils # Seg Neutrophils # Man Lymphocytes # (Manual) POC ABG pCO2 POC ABG pO2 Sodium Chloride 97.5 L Carbon Dioxide BUN 41 H Creatinine 1.8 H Glucose POC Glucose 123 H 154 H Calcium Total Bilirubin Direct Bilirubin Alkaline Phosphatase Lactate Dehydrogenase Troponin T NT-Pro-B Natriuret Pep Albumin Digoxin 08/06/19 08/07/19 08/07/19 21:22 08:56 08:56 WBC Hgb 11.6 L Hct RDW 18.8 H Lymph % (Auto) [place] % (Auto) Lymph # [place] # Seg Neutrophils % Seg Neuts % (Manual) Lymphocytes % (Manual) Seg Neutrophils # Seg Neutrophils # Man Lymphocytes # (Manual) POC ABG pCO2 POC ABG pO2 Sodium Chloride 95.0 L Carbon Dioxide BUN 42 H Creatinine 1.8 H Glucose POC Glucose 108 H Calcium Total Bilirubin Direct Bilirubin Alkaline Phosphatase Lactate Dehydrogenase Troponin T NT-Pro-B Natriuret Pep Albumin Digoxin 08/07/19 08/07/19 08/07/19 12:39 16:31 20:50 WBC Hgb Hct RDW Lymph % (Auto) [place] % (Auto) Lymph # [place] # Seg Neutrophils % Seg Neuts % (Manual) Lymphocytes % (Manual) Seg Neutrophils # Seg Neutrophils # Man Lymphocytes # (Manual) POC ABG pCO2 POC ABG pO2 Sodium Chloride Carbon Dioxide BUN Creatinine Glucose POC Glucose 110 H 132 H 126 H Calcium Total Bilirubin Direct Bilirubin Alkaline Phosphatase Lactate Dehydrogenase Troponin T NT-Pro-B Natriuret Pep Albumin Digoxin 08/08/19 08/08/19 08/08/19 08:27 08:27 16:14 WBC Hgb 11.6 L Hct RDW 18.9 H Lymph % (Auto) [place] % (Auto) Lymph # [place] # Seg Neutrophils % Seg Neuts % (Manual) Lymphocytes % (Manual) Seg Neutrophils # Seg Neutrophils # Man Lymphocytes # (Manual) POC ABG pCO2 POC ABG pO2 Sodium Chloride 95.3 L Carbon Dioxide BUN 48 H Creatinine 1.7 H Glucose POC Glucose 155 H Calcium Total Bilirubin Direct Bilirubin Alkaline Phosphatase Lactate Dehydrogenase Troponin T NT-Pro-B Natriuret Pep Albumin Digoxin 08/08/19 08/09/19 08/09/19 21:24 11:44 11:44 WBC Hgb 11.1 L Hct 34.6 L RDW 19.0 H Lymph % (Auto) [place] % (Auto) Lymph # [place] # Seg Neutrophils % Seg Neuts % (Manual) Lymphocytes % (Manual) Seg Neutrophils # Seg Neutrophils # Man Lymphocytes # (Manual) POC ABG pCO2 POC ABG pO2 Sodium 134 L Chloride 91.2 L Carbon Dioxide BUN 51 H Creatinine 1.8 H Glucose 140 H POC Glucose 123 H Calcium Total Bilirubin Direct Bilirubin Alkaline Phosphatase Lactate Dehydrogenase Troponin T NT-Pro-B Natriuret Pep Albumin Digoxin 08/09/19 08/09/19 08/09/19 13:02 17:25 20:49 WBC Hgb Hct RDW Lymph % (Auto) [place] % (Auto) Lymph # [place] # Seg Neutrophils % Seg Neuts % (Manual) Lymphocytes % (Manual) Seg Neutrophils # Seg Neutrophils # Man Lymphocytes # (Manual) POC ABG pCO2 POC ABG pO2 Sodium Chloride Carbon Dioxide BUN Creatinine Glucose POC Glucose 150 H 106 H 138 H Calcium Total Bilirubin Direct Bilirubin Alkaline Phosphatase Lactate Dehydrogenase Troponin T NT-Pro-B Natriuret Pep Albumin Digoxin 08/10/19 08/10/19 08/10/19 05:56 05:56 10:27 WBC Hgb Hct RDW Lymph % (Auto) [place] % (Auto) Lymph # [place] # Seg Neutrophils % Seg Neuts % (Manual) Lymphocytes % (Manual) Seg Neutrophils # Seg Neutrophils # Man Lymphocytes # (Manual) POC ABG pCO2 48.6 H POC ABG pO2 117 H Sodium 136 L Chloride 94.1 L Carbon Dioxide BUN 50 H Creatinine 1.6 H Glucose POC Glucose Calcium Total Bilirubin Direct Bilirubin Alkaline Phosphatase Lactate Dehydrogenase Troponin T NT-Pro-B Natriuret Pep Albumin Digoxin 0.7 L 08/10/19 11:54 WBC Hgb Hct RDW Lymph % (Auto) [place] % (Auto) Lymph # [place] # Seg Neutrophils % Seg Neuts % (Manual) Lymphocytes % (Manual) Seg Neutrophils # Seg Neutrophils # Man Lymphocytes # (Manual) POC ABG pCO2 POC ABG pO2 Sodium Chloride Carbon Dioxide BUN Creatinine Glucose POC Glucose 109 H Calcium Total Bilirubin Direct Bilirubin Alkaline Phosphatase Lactate Dehydrogenase Troponin T NT-Pro-B Natriuret Pep Albumin Digoxin Chest x-ray: report reviewed (Right pleural effusion almost resolved. Right lower lobe atelectasis.), image reviewed Allied health notes reviewed: nursing
--- NOTE | 2019-08-10 13:49 | Consultation ---
History of Present Illness - HPI Consult date: 08/10/19 Consult reason: joint pain History of present illness: 54 y/o male with c/o left ankle pain and swelling on and off x yrs, hx of fractured ankle with ORIF subsequent deep infection followed by removal of hardware and fusion 2000 in [facility]... Past History Past Medical History: other (Hypertension >15years, Type II DM (uncontrolled), CKD dx 2018, CHF, COPD) Past Surgical History: Other (ICD implantation) Social history: no significant social history Family history: diabetes, hypertension Medications and Allergies Allergies Allergy/AdvReac Type Severity Reaction Status Date / Time Penicillins Allergy Itching Verified 03/05/19 22:41 strawberry Allergy Hives Verified 03/05/19 22:41 Home Medications Medication Instructions Recorded Confirmed Last Taken Type Aspirin [Aspirin BABY CHEW TAB] 81 mg PO QDAY #30 tab.chew 03/14/19 08/02/19 07/19/19 15:57 Rx Acetaminophen [Acetaminophen TAB] 2 tab PO Q4H PRN #15 tablet 06/25/19 08/02/19 07/19/19 15:58 Rx Apixaban [Eliquis] 1 tab PO BID #60 tablet 07/24/19 08/02/19 Unknown Rx AtorvaSTATin [Lipitor] 40 mg PO QHS #30 tablet 07/24/19 08/02/19 Unknown Rx Colchicine 0.6 mg PO QDAY #10 capsule 07/24/19 08/02/19 Unknown Rx Digoxin [Lanoxin] 0.25 mg PO DAILY@1700 #30 tablet 07/24/19 08/02/19 Unknown Rx Docusate Sodium [Colace CAP] 100 mg PO BID capsule 07/24/19 08/02/19 Unknown Rx Metoprolol [Lopressor TAB] 75 mg PO TID #90 tablet 07/24/19 08/02/19 Unknown Rx Nicotine [Habitrol] 14 mg TD QDAY #30 patch 07/24/19 08/02/19 Unknown Rx Oxycodone HCl/Acetaminophen 1 each PO Q6HR PRN #20 tablet 07/24/19 08/02/19 Unknown Rx [Percocet 10/325 mg] Sodium Bicarbonate 1,300 mg PO BID #90 tablet 07/24/19 08/02/19 Unknown Rx Torsemide [Demadex] 100 mg PO DAILY@0600 #30 tablet 07/24/19 08/02/19 Unknown Rx guaiFENesin ER [Mucinex ER] 600 mg PO BID #60 tablet 07/24/19 08/02/19 Unknown Rx oxyCODONE /ACETAMINOPHEN [Percocet 1 tab PO Q6H PRN tablet 07/24/19 08/02/19 Unknown Rx 5/325 mg] predniSONE [Deltasone] 20 mg PO QDAY #7 tablet 07/24/19 08/02/19 Unknown Rx Active Meds: Active Medications Acetaminophen (Tylenol) 650 mg PO Q4H PRN PRN Reason: Pain MILD(1-3)/Fever >100.5/TRUJILLO Apixaban (Eliquis) 5 mg PO BID [facility]; Protocol Last Admin: 08/10/19 09:53 Dose: 5 mg Documented by: Aspirin (Baby Aspirin) 81 mg PO QDAY [facility] Last Admin: 08/10/19 09:54 Dose: 81 mg Documented by: Atorvastatin Calcium (Lipitor) 40 mg PO QHS [facility] Last Admin: 08/09/19 22:13 Dose: 40 mg Documented by: Digoxin (Lanoxin) 0.25 mg PO Q48H [facility] Last Admin: 08/08/19 18:16 Dose: 0.25 mg Documented by: Docusate Sodium (Colace) 100 mg PO BID [facility] Last Admin: 08/10/19 09:53 Dose: 100 mg Documented by: Famotidine (Pepcid) 20 mg PO BID [facility] Last Admin: 08/10/19 09:53 Dose: 20 mg Documented by: Furosemide (Lasix) 80 mg IV 0900,1800 [facility] Last Admin: 08/10/19 09:55 Dose: 80 mg Documented by: Hydromorphone HCl (Dilaudid) 0.5 mg IV Q4H PRN PRN Reason: Pain , Severe (7-10) Last Admin: 08/10/19 06:28 Dose: 0.5 mg Documented by: Cefazolin Sodium 2 gm/ Sodium (Chloride) 100 mls @ 200 mls/hr IV Q8HR [facility] Last Admin: 08/10/19 06:41 Dose: 200 mls/hr Documented by: Insulin Human Lispro (Humalog) 0 unit SUB-Q ACHS [facility]; Protocol Last Admin: 08/10/19 09:50 Dose: Not Given Documented by: Metoclopramide HCl (Reglan) 10 mg IV Q6H PRN PRN Reason: Nausea And Vomiting Metoprolol Tartrate (Metoprolol) 50 mg PO TID [facility] Last Admin: 08/10/19 10:12 Dose: 50 mg Documented by: Metoprolol Tartrate (Metoprolol) 25 mg PO TID [facility] Last Admin: 08/10/19 09:54 Dose: 25 mg Documented by: Morphine Sulfate (Morphine) 2 mg IV Q4H PRN PRN Reason: Pain, Moderate (4-6) Last Admin: 08/10/19 11:34 Dose: 2 mg Documented by: Nicotine (Habitrol) 14 mg TD QDAY [facility] Last Admin: 08/10/19 10:00 Dose: Not Given Documented by: Ondansetron HCl (Zofran) 4 mg IV Q8H PRN PRN Reason: Nausea And Vomiting Oxycodone HCl (Roxicodone) 5 mg PO Q6H PRN PRN Reason: Pain, (7-10) Last Admin: 08/09/19 23:27 Dose: 5 mg Documented by: Oxycodone/Acetaminophen (Percocet 5/325) 1 tab PO Q6H PRN PRN Reason: Pain , Severe (7-10) Last Admin: 08/10/19 11:13 Dose: 1 tab Documented by: Prednisone (Deltasone) 20 mg PO QDAY [facility] Last Admin: 08/10/19 09:53 Dose: 20 mg Documented by: Sodium Chloride (Sodium Chloride Flush Syringe 10 Ml) 10 ml IV PRN PRN PRN Reason: LINE FLUSH Last Admin: 08/04/19 06:17 Dose: 10 ml Documented by: Sodium Chloride (Sodium Chloride Flush Syringe 10 Ml) 10 ml IV BID [facility] Last Admin: 08/10/19 10:00 Dose: 10 ml Documented by: Physical Examination - Physical exam Narrative exam: left lower extremity - 2-3 plus pitting edema, small draining sinus along lateral border, minimal erythema Eyes: PERRL ENT: Positive: clear oral mucosa Respiratory effort: normal Respiratory: bilateral: CTA Rhythm: regular Heart Sounds: Positive: S1 & S2 General gastrointestinal: Positive: soft, non-tender, non-distended, normal rahul wel sounds Integumentary: clear, warm, dry Neurologic: Positive: CNII-XII intact, moves all extremities, gait normal. Negative: focal deficits Assessment and Plan chronic osteomyelitis left ankle/foot with significant soft tissue edema recommendation - due to poor soft tissue envelope at this juncture, continue IVAB's and observation
[2019-08-10] MEDS: DIGOXIN 0.25 MG TAB PO SCH (16:01)
--- NOTE | 2019-08-10 16:01 | Progress Note ---
Assessment and Plan - Patient Problems (1) Acute kidney injury superimposed on chronic kidney disease Current Visit: No Status: Acute Plan to address problem: Acute kidney injury superimposed on chronic kidney disease improving current cr: 1.6 Baseline creatinine about 1.2- 1.3 Worsening renal function in the setting of significant volume overload We'll repeat chlorothiazide 500mg IV once. continue Lasix to 80 mg IV twice a day Strict I's and O's daily weights (2) CHF exacerbation Current Visit: Yes Status: Acute Plan to address problem: Congestive heart failure I reviewed Echocardiogram EF 10% We'll increase diuretic dose Needs daily weights salt and fluid RESTRICTION (3) Recurrent right pleural effusion Current Visit: No Status: Acute Plan to address problem: Recurrence right pleural effusion status post catheter placement Management per surgery Continue diuresis (4) Hyponatremia Current Visit: Yes Status: Acute Plan to address problem: Hyponatremia Fluid restriction continue diuresis Subjective Interval history: 54-year-old gentleman with congestive heart failure volume overload and respiratory failure nephrology consulted for acute kidney injury Patient seen today still has significant lower extremity edema complaints of joint pain. Status post thoracentesis Reports shortness of breath is improving Objective - Vital Signs Vital signs: Vital Signs - 12hr 08/10/19 08/10/19 08/10/19 07:06 07:58 09:54 Temperature 98.1 F Pulse Rate 59 L 63 Pulse Rate [ 78 Apical] Respiratory 18 Rate Blood Pressure 102/76 O2 Sat by Pulse 99 93 Oximetry 08/10/19 08/10/19 10:00 10:12 Temperature Pulse Rate 68 Pulse Rate [ Apical] Respiratory Rate Blood Pressure O2 Sat by Pulse 98 Oximetry - General Appearance General appearance: well-developed, well-nourished EENT: ATNC, PERRL Neck: JVD Respiratory: Present: Decreased Breath Sounds Cardiology: regular, S1S2 Gastrointestinal: normal, normoactive bowel sounds Neurologic: alert and oriented x3, CN 3-12 intact Musculoskeletal: other (grade 3 edema. ) Psychiatric: mood/affect appropriate - Lab 08/09/19 11:44 08/10/19 05:56 Most recent lab results Calcium 8.7 mg/dL (8.4-10.2) 08/10/19 05:56 Magnesium 2.10 mg/dL (1.7-2.3) 08/10/19 05:56 - Imaging Chest x-ray: image reviewed Medications & Allergies - Medications Allergies/Adverse Reactions: Allergies Penicillins Allergy (Verified 03/05/19 22:41) Itching strawberry Allergy (Verified 03/05/19 22:41) Hives Home Medications: Home Medications Medication Instructions Recorded Confirmed Last Taken Type Aspirin [Aspirin BABY CHEW TAB] 81 mg PO QDAY #30 tab.chew 03/14/19 08/02/19 07/19/19 15:57 Rx Acetaminophen [Acetaminophen TAB] 2 tab PO Q4H PRN #15 tablet 06/25/19 08/02/19 07/19/19 15:58 Rx Apixaban [Eliquis] 1 tab PO BID #60 tablet 07/24/19 08/02/19 Unknown Rx AtorvaSTATin [Lipitor] 40 mg PO QHS #30 tablet 07/24/19 08/02/19 Unknown Rx Colchicine 0.6 mg PO QDAY #10 capsule 07/24/19 08/02/19 Unknown Rx Digoxin [Lanoxin] 0.25 mg PO DAILY@1700 #30 tablet 07/24/19 08/02/19 Unknown Rx Docusate Sodium [Colace CAP] 100 mg PO BID capsule 07/24/19 08/02/19 Unknown Rx Metoprolol [Lopressor TAB] 75 mg PO TID #90 tablet 07/24/19 08/02/19 Unknown Rx Nicotine [Habitrol] 14 mg TD QDAY #30 patch 07/24/19 08/02/19 Unknown Rx Oxycodone HCl/Acetaminophen 1 each PO Q6HR PRN #20 tablet 07/24/19 08/02/19 Unknown Rx [Percocet 10/325 mg] Sodium Bicarbonate 1,300 mg PO BID #90 tablet 07/24/19 08/02/19 Unknown Rx Torsemide [Demadex] 100 mg PO DAILY@0600 #30 tablet 07/24/19 08/02/19 Unknown Rx guaiFENesin ER [Mucinex ER] 600 mg PO BID #60 tablet 07/24/19 08/02/19 Unknown Rx oxyCODONE /ACETAMINOPHEN [Percocet 1 tab PO Q6H PRN tablet 07/24/19 08/02/19 Unknown Rx 5/325 mg] predniSONE [Deltasone] 20 mg PO QDAY #7 tablet 07/24/19 08/02/19 Unknown Rx Active Medications: Generic Name Dose Route Start Last Admin Trade Name Freq PRN Reason Stop Dose Admin Acetaminophen 650 mg 08/06/19 12:38 Tylenol PO Q4H PRN Pain MILD(1-3)/Fever >100.5/TRUJILLO Apixaban 5 mg 08/02/19 10:00 08/10/19 09:53 Eliquis PO 5 mg BID SOUMYA Administration Protocol Aspirin 81 mg 08/02/19 10:00 08/10/19 09:54 Baby Aspirin PO 81 mg QDAY SOUMYA Administration Atorvastatin Calcium 40 mg 08/02/19 22:00 08/09/19 22:13 Lipitor PO 40 mg QHS SOUMYA Administration Chlorothiazide Sodium 500 mg 08/10/19 17:00 Diuril IV 08/10/19 17:01 ONCE ONE Digoxin 0.25 mg 08/04/19 17:00 08/08/19 18:16 Lanoxin PO 0.25 mg Q48H SOUMYA Administration Docusate Sodium 100 mg 08/02/19 10:00 08/10/19 09:53 Colace PO 100 mg BID SOUMYA Administration Famotidine 20 mg 08/02/19 10:00 08/10/19 09:53 Pepcid PO 20 mg BID SOUMYA Administration Furosemide 80 mg 08/09/19 18:00 08/10/19 09:55 Lasix IV 80 mg 0900,1800 SOUMYA Administration Hydromorphone HCl 0.5 mg 08/02/19 01:32 08/10/19 06:28 Dilaudid IV 0.5 mg Q4H PRN Administration Pain , Severe (7-10) Cefazolin Sodium 2 gm/ Sodium 100 mls @ 200 mls/hr 08/09/19 16:00 08/10/19 06:41 Chloride IV 200 mls/hr Q8HR SOUMYA Administration Insulin Human Lispro 0 unit 08/02/19 07:30 08/10/19 09:50 Humalog SUB-Q Not Given ACHS [facility] Protocol Metoclopramide HCl 10 mg 08/02/19 04:12 Reglan IV Q6H PRN Nausea And Vomiting Metoprolol Tartrate 50 mg 08/02/19 08:00 08/10/19 10:12 Metoprolol PO 50 mg TID SOUMYA Administration Metoprolol Tartrate 25 mg 08/02/19 08:00 08/10/19 09:54 Metoprolol PO 25 mg TID SOUMYA Administration Morphine Sulfate 2 mg 08/06/19 12:04 08/10/19 11:34 Morphine IV 2 mg Q4H PRN Administration Pain, Moderate (4-6) Nicotine 14 mg 08/02/19 10:00 08/10/19 10:00 Habitrol TD Not Given QDAY [facility] Ondansetron HCl 4 mg 08/02/19 04:12 Zofran IV Q8H PRN Nausea And Vomiting Oxycodone HCl 5 mg 08/02/19 04:18 08/09/19 23:27 Roxicodone PO 5 mg Q6H PRN Administration Pain, (7-10) Oxycodone/Acetaminophen 1 tab 08/02/19 04:09 08/10/19 11:13 Percocet 5/325 PO 1 tab Q6H PRN Administration Pain , Severe (7-10) Prednisone 20 mg 08/02/19 10:00 08/10/19 09:53 Deltasone PO 20 mg QDAY SOUMYA Administration Sodium Chloride 10 ml 08/02/19 04:12 08/04/19 06:17 Sodium Chloride Flush Syringe 10 Ml IV 10 ml PRN PRN Administration LINE FLUSH Sodium Chloride 10 ml 08/02/19 10:00 08/10/19 10:00 Sodium Chloride Flush Syringe 10 Ml IV 10 ml BID SOUMYA Administration
--- NOTE | 2019-08-10 16:45 | Progress Note ---
Assessment and Plan Recurrent Pleural effusion -s/p right chest tube placed . Draining clear fluid. Continue per pulmonology. Acute on Chronic systolic heart failure. Fluid/sodium restriction. Lasix iv, Joey, beta nathaniel, Cardiology following Acute on Chronic renal failure. Monitor BUN and creatinine Avoid nephrotoxic medications Nephrology following Left ankle ulcer with infected hardware ID recommend Ortho evaluation. Consulted Chronic atrial fibrillation Cont. on Eliquis for oral anticoagulation as an outpatient rate controlled with metoprolol and digoxin Hx of Nonischemic cardiomyopathy EF 15-20% by echo 11/2018 Presence of the ICD recent interrogation revealed a normal functioning device hypertension. Cont current regimen Type 2 diabetes mellitus. Accuchecks and SSRI Consistent carbohydrate diet Activity on Chronic obstructive pulmonary disease. continue with bronchodilators, supplemental oxygen, Prednisone MSSA left ulcer with hardware in place ID following On Cefazolin. Subjective Date of service: 08/10/19 Principal diagnosis: acute on chronic systolic HF, acute on chr, RF, nonischemic cardiom Interval history: Patient seen and examined. Remains afebrile. In no distress. No shortness of breath. Not Respiratory distress. Objective - Exam Narrative Exam: Constitutional: Well-nourished well-developed. In no distress Head: Normocephalic atraumatic Eyes: Pupils are equal round and reactive to light Nose: No enlarged turbinates, no septal deviation. Mouth: Moist mucous membranes. Neck: Supple no thyromegaly. No bruit. No JVD Heart: Regular rate and rhythm, S1-S2 normal. No rubs murmurs or gallop Lungs: Clear to auscultation bilaterally. no rales or rhonchi Abdomen: Soft, nontender. Bowel sound are present. Extremities: No edema, no cyanosis, no clubbing. Neuro: Alert oriented Oriented x3. No focal sensory or motor deficit. Skin: No rashes or hyperpigmented spots Musculoskeletal system: No joint pain or swelling Hematological: No petechia or subcutanous hemorrhages. Immunological: No multiple septic spots on the skin Lymphatic: No generalized lymphadenopathy Psychiatry: Euthymic. Calm. - Constitutional Vitals: Vital Signs - 12hr 08/10/19 08/10/19 08/10/19 07:06 07:58 09:54 Temperature 98.1 F Pulse Rate 59 L 63 Pulse Rate [ 78 Apical] Respiratory 18 Rate Blood Pressure 102/76 O2 Sat by Pulse 99 93 Oximetry 08/10/19 08/10/19 08/10/19 10:00 10:12 15:47 Temperature 98.6 F Pulse Rate 68 56 L Pulse Rate [ Apical] Respiratory 18 Rate Blood Pressure 105/67 O2 Sat by Pulse 98 95 Oximetry 08/10/19 08/10/19 08/10/19 15:59 16:01 16:02 Temperature Pulse Rate 64 64 64 Pulse Rate [ Apical] Respiratory Rate Blood Pressure O2 Sat by Pulse Oximetry - Labs CBC & Chem 7: 08/09/19 11:44 08/10/19 05:56 Labs: Abnormal lab results 08/09/19 08/09/19 08/10/19 Range/Units 17:25 20:49 05:56 POC ABG pCO2 (35-45) POC ABG pO2 (80-105) Sodium 136 L (137-145) mmol/L Chloride 94.1 L (98-107) mmol/L BUN 50 H (9-20) mg/dL Creatinine 1.6 H (0.8-1.5) mg/dL POC Glucose 106 H 138 H (70-105) Digoxin (0.9-2.0) ng/mL 08/10/19 08/10/19 08/10/19 Range/Units 05:56 10:27 11:54 POC ABG pCO2 48.6 H (35-45) POC ABG pO2 117 H (80-105) Sodium (137-145) mmol/L Chloride (98-107) mmol/L BUN (9-20) mg/dL Creatinine (0.8-1.5) mg/dL POC Glucose 109 H (70-105) Digoxin 0.7 L (0.9-2.0) ng/mL 08/10/19 Range/Units 15:53 POC ABG pCO2 (35-45) POC ABG pO2 (80-105) Sodium (137-145) mmol/L Chloride (98-107) mmol/L BUN (9-20) mg/dL Creatinine (0.8-1.5) mg/dL POC Glucose 162 H (70-105) Digoxin (0.9-2.0) ng/mL
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
[2019-08-10] MEDS ORDERED: CHLOROTHIAZIDE SODIUM IV ONE (17:00)
[2019-08-10] MEDS ORDERED: CHLOROTHIAZIDE 500 MG VIAL IV ONE (17:00)
[2019-08-10] MEDS ORDERED: SODIUM CHLORIDE 0.9% IV ONE (17:00)
[2019-08-10] MEDS: cephALEXin 500 MG CAP PO SCH (17:43)
[2019-08-11] MEDS: HYDROmorphone 1 MG/1 ML INJ IV PRN ×3 (03:24→21:38)
[2019-08-11 06:09] LABS: Basophils % (Auto) 0.3 % (0.0-1.8); Eosinophils # (Auto) 0.1 K/mm3 (0.0-0.4); Eosinophils % (Auto) 1.2 % (0.0-4.3); Hematocrit 36.6 % (35.5-45.6); Hemoglobin 11.7 gm/dl (11.8-15.2); Lymphocytes # (Auto) 1.2 K/mm3 (1.2-5.4); Lymphocytes % (Auto) 11.7 % (13.4-35.0); Mean Corpuscular HGB Conc 32 % (32-34); Mean Corpuscular Volume 89 fl (84-94); Monocytes # (Auto) 1.2 K/mm3 (0.0-0.8); Monocytes % (Auto) 11.7 % (0.0-7.3); Platelet Count 207 K/mm3 (140-440); Red Blood Count 4.12 M/mm3 (3.65-5.03)
[2019-08-11 06:34] LABS: Albumin 3.3 g/dL (3.9-5); Calcium 9.1 mg/dL (8.4-10.2)
[2019-08-11] MEDS: cephALEXin 500 MG CAP PO SCH ×3 (07:11→21:34)
[2019-08-11] MEDS: INSULIN LISPRO 100 UNIT/ML SUB-Q SCH ×4 (08:45→21:39)
[2019-08-11] MEDS: MORPHINE 2 MG/1 ML INJ IV PRN (08:46)
[2019-08-11] MEDS: METOPROLOL TARTRATE 25 MG TAB PO SCH ×4 (08:55→21:47)
[2019-08-11] MEDS: METOPROLOL TARTRATE 50 MG TAB PO SCH ×4 (08:56→21:47)
[2019-08-11] MEDS: FUROSEMIDE 40 MG/4 ML INJ IV SCH ×2 (08:57→19:10)
[2019-08-11] MEDS: NICOTINE 14 MG/24 HR PATCH TD SCH (09:10)
[2019-08-11] MEDS: FAMOTIDINE 20 MG TAB PO SCH ×2 (09:14→21:34)
[2019-08-11] MEDS: predniSONE 20 MG TAB PO SCH (09:15)
[2019-08-11] MEDS: ASPIRIN 81 MG TAB CHEW PO SCH (09:15)
[2019-08-11] MEDS: APIXABAN 5 MG TAB PO SCH ×2 (09:15→21:35)
[2019-08-11] MEDS: DOCUSATE SODIUM 100 MG CAP PO SCH ×2 (09:16→21:37)
--- NOTE | 2019-08-11 12:01 | Progress Note ---
<JEANA HOLM - Last Filed: 08/11/19 12:00> Assessment and Plan Recurrent Pleural effusion s/p thoracentesis s/p right chest tube Chronic systolic heart failure Chronic renal failure LLE ulcer -culture 08/03/2019 +MSSA Chronic atrial fibrillation on Eliquis for oral anticoagulation as an outpatient rate controlled with metoprolol and digoxin; dig level at 0.7 today Hx of Nonischemic cardiomyopathy EF 15-20% by echo 11/2018 Presence of the ICD an interrogation this admission reports no ventricular arrhythmias or ICD discharge; a normal functioning device. Essential hypertension Type 2 diabetes mellitus Chronic obstructive pulmonary disease Recommendations: Continue fluid/sodium restriction. Continue medical therapy for chronic systolic heart failure and rate controlling agents for chronic atrial fibrillation. We will follow intermittently. Subjective Date of service: 08/11/19 Principal diagnosis: acute on chronic systolic HF, acute on chr, RF, nonischemic cardiom Interval history: Afib with a well controlled ventricular rate on telemetry. Objective Vital Signs Temp Pulse Pulse Resp BP Pulse Ox 08/11/19 11:04 98.0 F 68 18 90/70 91 08/11/19 08:56 60 08/11/19 08:55 60 08/11/19 08:34 95 08/11/19 07:46 97.9 F 64 18 99/63 95 08/11/19 03:24 22 08/11/19 03:21 97.9 F 45 L 16 102/54 95 08/11/19 00:29 78 99 08/10/19 23:11 97.9 F 61 20 94/62 97 08/10/19 22:00 61 08/10/19 21:53 100 08/10/19 21:11 63 113/64 08/10/19 21:09 58 L 113/64 08/10/19 20:31 22 08/10/19 19:48 98.0 F 58 L 18 113/64 100 08/10/19 16:02 64 08/10/19 16:01 64 08/10/19 15:59 64 08/10/19 15:47 98.6 F 56 L 18 105/67 95 - Physical Examination General: No Apparent Distress HEENT: Positive: PERRL Neck: Positive: trachea midline Cardiac: Positive: irregularly irregular Lungs: Positive: Decreased Breath Sounds, Other (right chest tube) Neuro: Positive: Grossly Intact Extremities: Present: edema, Other (LLE ulcer) - Labs and Meds Cardiac Enzymes 08/11/19 Range/Units 05:17 AST 25 (5-40) units/L CBC 08/11/19 Range/Units 05:17 WBC 10.0 (4.5-11.0) K/mm3 RBC 4.12 (3.65-5.03) M/mm3 Hgb 11.7 L (11.8-15.2) gm/dl Hct 36.6 (35.5-45.6) % Plt Count 207 (140-440) K/mm3 Lymph # 1.2 (1.2-5.4) K/mm3 Rock # 1.2 H (0.0-0.8) K/mm3 Eos # 0.1 (0.0-0.4) K/mm3 Baso # 0.0 (0.0-0.1) K/mm3 Comprehensive Metabolic Panel 08/11/19 Range/Units 05:17 Sodium 137 (137-145) mmol/L Potassium 4.1 (3.6-5.0) mmol/L Chloride 93.6 L (98-107) mmol/L Carbon Dioxide 26 (22-30) mmol/L BUN 55 H (9-20) mg/dL Creatinine 1.7 H (0.8-1.5) mg/dL Glucose 92 (75-100) mg/dL Calcium 9.1 (8.4-10.2) mg/dL AST 25 (5-40) units/L ALT 15 (7-56) units/L Alkaline Phosphatase 197 H (35-129) units/L Total Protein 7.1 (6.3-8.2) g/dL Albumin 3.3 L (3.9-5) g/dL - Allied health notes Allied health notes reviewed: nursing <POLLY ESPINOZA - Last Filed: 08/18/19 10:07> Assessment and Plan I have seen and evaluated the patient myself, and agree with the assessment and plan.
--- NOTE | 2019-08-11 12:31 | Progress Note ---
Assessment and Plan Assessment and plan: Recurrent Pleural effusion -s/p right chest tube placed . Continue per pulmonology. Acute on Chronic systolic heart failure. Fluid/sodium restriction. Continue medical therapy for chronic systolic heart failure. Cardiology following Lasix iv Acute on Chronic renal failure. Nephrology following Left ankle ulcer with infected hardware ID recommend Ortho evaluation. Consulted Chronic atrial fibrillation Cont. on Eliquis for oral anticoagulation as an outpatient rate controlled with metoprolol and digoxin Hx of Nonischemic cardiomyopathy EF 15-20% by echo 11/2018 Presence of the ICD recent interrogation revealed a normal functioning device hypertension. Cont current regimen Type 2 diabetes mellitus. Accuchecks and SSRI Chronic obstructive pulmonary disease. Stable MSSA left ulcer ID following On Cefazolin. History Interval history: Less Shortness of breath Bilateral feet,Leg edema Hospitalist Physical - Physical exam Narrative exam: Gen: Not in acute distress, lying in bed HEENT: Normocephalic, atraumatic Neck: supple, no JVD Heart: S1 and S2 reg, no murmurs, rubs or gallop Lungs: Chest tube on right hemithorax Abd: soft, NT, non distended normal BS Ext: Bilateral edema of feet and legs, left ankle ulcer covered with dressing, no cyanosis Neuro: Awake, alert, oriented X 3, moves all ext - Constitutional Vitals: Temp Pulse Resp BP Pulse Ox 98.0 F 68 18 90/70 91 08/11/19 11:04 08/11/19 11:04 08/11/19 11:04 08/11/19 11:04 08/11/19 11:04 General appearance: Present: no acute distress Results - Labs CBC & Chem 7: 08/15/19 06:52 08/15/19 06:52 Labs: Laboratory Last Values WBC 10.0 K/mm3 (4.5-11.0) 08/11/19 05:17 RBC 4.12 M/mm3 (3.65-5.03) 08/11/19 05:17 Hgb 11.7 gm/dl (11.8-15.2) L 08/11/19 05:17 Hct 36.6 % (35.5-45.6) 08/11/19 05:17 MCV 89 fl (84-94) 08/11/19 05:17 MCH 29 pg (28-32) 08/11/19 05:17 MCHC 32 % (32-34) 08/11/19 05:17 RDW 19.0 % (13.2-15.2) H 08/11/19 05:17 Plt Count 207 K/mm3 (140-440) 08/11/19 05:17 Lymph % (Auto) 11.7 % (13.4-35.0) L 08/11/19 05:17 [place] % (Auto) 11.7 % (0.0-7.3) H 08/11/19 05:17 Eos % (Auto) 1.2 % (0.0-4.3) 08/11/19 05:17 Baso % (Auto) 0.3 % (0.0-1.8) 08/11/19 05:17 Lymph # 1.2 K/mm3 (1.2-5.4) 08/11/19 05:17 [place] # 1.2 K/mm3 (0.0-0.8) H 08/11/19 05:17 Eos # 0.1 K/mm3 (0.0-0.4) 08/11/19 05:17 Baso # 0.0 K/mm3 (0.0-0.1) 08/11/19 05:17 Add Manual Diff Complete 08/05/19 05:16 Total Counted 100 08/05/19 05:16 Seg Neutrophils % 75.1 % (40.0-70.0) H 08/11/19 05:17 Seg Neuts % (Manual) 89.0 % (40.0-70.0) H 08/05/19 05:16 Band Neutrophils % 0 % 08/05/19 05:16 Lymphocytes % (Manual) 5.0 % (13.4-35.0) L 08/05/19 05:16 Reactive Lymphs % (Man) 0 % 08/05/19 05:16 Monocytes % (Manual) 6.0 % (0.0-7.3) 08/05/19 05:16 Eosinophils % (Manual) 0 % (0.0-4.3) 08/05/19 05:16 Basophils % (Manual) 0 % (0.0-1.8) 08/05/19 05:16 Metamyelocytes % 0 % 08/05/19 05:16 Myelocytes % 0 % 08/05/19 05:16 Promyelocytes % 0 % 08/05/19 05:16 Blast Cells % 0 % 08/05/19 05:16 Nucleated RBC % Not Reportable 08/05/19 05:16 Seg Neutrophils # 7.5 K/mm3 (1.8-7.7) 08/11/19 05:17 Seg Neutrophils # Man 8.3 K/mm3 (1.8-7.7) H 08/05/19 05:16 Band Neutrophils # 0.0 K/mm3 08/05/19 05:16 Lymphocytes # (Manual) 0.5 K/mm3 (1.2-5.4) L 08/05/19 05:16 Abs React Lymphs (Man) 0.0 K/mm3 08/05/19 05:16 Monocytes # (Manual) 0.6 K/mm3 (0.0-0.8) 08/05/19 05:16 Eosinophils # (Manual) 0.0 K/mm3 (0.0-0.4) 08/05/19 05:16 Basophils # (Manual) 0.0 K/mm3 (0.0-0.1) 08/05/19 05:16 Metamyelocytes # 0.0 K/mm3 08/05/19 05:16 Myelocytes # 0.0 K/mm3 08/05/19 05:16 Promyelocytes # 0.0 K/mm3 08/05/19 05:16 Blast Cells # 0.0 K/mm3 08/05/19 05:16 WBC Morphology Not Reportable 08/05/19 05:16 Hypersegmented Neuts Not Reportable 08/05/19 05:16 Hyposegmented Neuts Not Reportable 08/05/19 05:16 Hypogranular Neuts Not Reportable 08/05/19 05:16 Smudge Cells Not Reportable 08/05/19 05:16 Toxic Granulation Not Reportable 08/05/19 05:16 Toxic Vacuolation Not Reportable 08/05/19 05:16 Dohle Bodies Not Reportable 08/05/19 05:16 Pelger-Huet Anomaly Not Reportable 08/05/19 05:16 Cathie Rods Not Reportable 08/05/19 05:16 Platelet Estimate Consistent w auto 08/05/19 05:16 Clumped Platelets Not Reportable 08/05/19 05:16 Plt Clumps, EDTA Not Reportable 08/05/19 05:16 Large Platelets Not Reportable 08/05/19 05:16 Giant Platelets Not Reportable 08/05/19 05:16 Platelet Satelliting Not Reportable 08/05/19 05:16 Plt Morphology Comment Not Reportable 08/05/19 05:16 RBC Morphology Not Reportable 08/05/19 05:16 Dimorphic RBCs Not Reportable 08/05/19 05:16 Polychromasia Not Reportable 08/05/19 05:16 Hypochromasia Not Reportable 08/05/19 05:16 Poikilocytosis Not Reportable 08/05/19 05:16 Anisocytosis Not Reportable 08/05/19 05:16 Microcytosis Not Reportable 08/05/19 05:16 Macrocytosis Not Reportable 08/05/19 05:16 Spherocytes Not Reportable 08/05/19 05:16 Pappenheimer Bodies Not Reportable 08/05/19 05:16 Sickle Cells Not Reportable 08/05/19 05:16 Target Cells Not Reportable 08/05/19 05:16 Tear Drop Cells Not Reportable 08/05/19 05:16 Ovalocytes Not Reportable 08/05/19 05:16 Stomatocytes Rare 08/05/19 05:16 Helmet Cells Not Reportable 08/05/19 05:16 [place] Bodies Not Reportable 08/05/19 05:16 [place] Rings Not Reportable 08/05/19 05:16 Shahram Cells Rare 08/05/19 05:16 Bite Cells Not Reportable 08/05/19 05:16 Crenated Cell Not Reportable 08/05/19 05:16 Elliptocytes Few 08/05/19 05:16 Acanthocytes (Spur) Not Reportable 08/05/19 05:16 Rouleaux Not Reportable 08/05/19 05:16 Hemoglobin C Crystals Not Reportable 08/05/19 05:16 Schistocytes Not Reportable 08/05/19 05:16 Malaria parasites Not Reportable 08/05/19 05:16 ESR 17 mm/Hr (0-20) 08/10/19 05:56 [place] Bodies Not Reportable 08/05/19 05:16 Hem Pathologist Commnt No 08/05/19 05:16 PT 13.9 Sec. (12.2-14.9) 08/01/19 18:49 INR 1.08 (0.87-1.13) 08/01/19 18:49 APTT 30.8 Sec. (24.2-36.6) 08/01/19 18:49 POC ABG pH 7.407 (7.35-7.45) 08/10/19 10:27 POC ABG pCO2 48.6 (35-45) H 08/10/19 10:27 POC ABG pO2 117 (80-105) H 08/10/19 10:27 POC ABG HCO3 30.6 (22-26 mml/L) 08/10/19 10:27 POC ABG Total CO2 32 (23-27mmol/L) 08/10/19 10:27 POC ABG O2 Sat 99 08/10/19 10:27 POC ABG Base Excess 6 ((-2) - (+3)mmol/L) 08/10/19 10:27 FiO2 33 % 08/10/19 10:27 Sodium 137 mmol/L (137-145) 08/11/19 05:17 Potassium 4.1 mmol/L (3.6-5.0) 08/11/19 05:17 Chloride 93.6 mmol/L (98-107) L 08/11/19 05:17 Carbon Dioxide 26 mmol/L (22-30) 08/11/19 05:17 Anion Gap 22 mmol/L 08/11/19 05:17 BUN 55 mg/dL (9-20) H 08/11/19 05:17 Creatinine 1.7 mg/dL (0.8-1.5) H 08/11/19 05:17 Estimated GFR 51 ml/min 08/11/19 05:17 BUN/Creatinine Ratio 32 % 08/11/19 05:17 Glucose 92 mg/dL (75-100) 08/11/19 05:17 POC Glucose 160 (70-105) H 08/11/19 11:17 Hemoglobin A1c 5.9 % (4-6) 08/02/19 07:49 Calcium 9.1 mg/dL (8.4-10.2) 08/11/19 05:17 Magnesium 2.10 mg/dL (1.7-2.3) 08/10/19 05:56 Total Bilirubin 0.60 mg/dL (0.1-1.2) 08/11/19 05:17 Direct Bilirubin 1.0 mg/dL (0-0.2) H 08/01/19 18:49 Indirect Bilirubin 0.8 mg/dL 08/01/19 18:49 AST 25 units/L (5-40) 08/11/19 05:17 ALT 15 units/L (7-56) 08/11/19 05:17 Alkaline Phosphatase 197 units/L (35-129) H 08/11/19 05:17 Lactate Dehydrogenase 199 units/L (91-180) H 08/03/19 17:01 Troponin T 0.054 ng/mL (0.00-0.029) H 08/02/19 00:28 C-Reactive Protein 0.40 mg/dL (0.00-1.30) 08/10/19 05:56 NT-Pro-B Natriuret Pep 91233 pg/mL (0-900) H 08/01/19 18:49 Total Protein 7.1 g/dL (6.3-8.2) 08/11/19 05:17 Albumin 3.3 g/dL (3.9-5) L 08/11/19 05:17 Albumin/Globulin Ratio 0.9 % 08/11/19 05:17 Triglycerides 69 mg/dL (2-149) 08/01/19 18:49 Cholesterol 131 mg/dL (50-199) 08/01/19 18:49 LDL Cholesterol Direct 88 mg/dL (50-130) 08/01/19 18:49 HDL Cholesterol 41 mg/dL (40-59) 08/01/19 18:49 Cholesterol/HDL Ratio 3.19 % 08/01/19 18:49 Fluid Type Pleural 08/07/19 20:20 Fluid Color Yellow 08/07/19 20:20 Fluid Appearance Cloudy 08/07/19 20:20 Fluid WBC 348 /mm3 08/07/19 20:20 Fluid RBC 669 /mm3 08/07/19 20:20 Fluid Seg Neutrophils 1.0 % 08/07/19 20:20 Fluid Lymphocytes 26.0 % 08/07/19 20:20 Fluid Reactive Lymphs 0 % 08/07/19 20:20 Fluid Monocytes 14.0 % 08/07/19 20:20 Fluid Eosinophils 59.0 % 08/07/19 20:20 Fluid Basophils 0 % 08/07/19 20:20 Digoxin 0.7 ng/mL (0.9-2.0) L 08/10/19 05:56 AFB Identification 08/07/19 20:20 Fungal Id Prelim 08/07/19 20:20 Active Medications - Current Medications Current Medications: Generic Name Dose Route Start Last Admin Trade Name Freq PRN Reason Stop Dose Admin Acetaminophen 650 mg 08/06/19 12:38 Tylenol PO Q4H PRN Pain MILD(1-3)/Fever >100.5/[id number] Apixaban 5 mg 08/02/19 10:00 08/11/19 09:15 Eliquis PO 5 mg BID SOUMYA Administration Protocol Aspirin 81 mg 08/02/19 10:00 08/11/19 09:15 Baby Aspirin PO 81 mg QDAY SOUMYA Administration Atorvastatin Calcium 40 mg 08/02/19 22:00 08/10/19 21:11 Lipitor PO 40 mg QHS SOUMYA Administration Cephalexin 500 mg 08/10/19 17:00 08/11/19 07:11 Keflex PO 500 mg Q8HR SOUMYA Administration Digoxin 0.25 mg 08/04/19 17:00 08/10/19 16:01 Lanoxin PO 0.25 mg Q48H SOUMYA Administration Docusate Sodium 100 mg 08/02/19 10:00 08/11/19 09:16 Colace PO 100 mg BID SOUMYA Administration Famotidine 20 mg 08/02/19 10:00 08/11/19 09:14 Pepcid PO 20 mg BID SOUMYA Administration Furosemide 80 mg 08/09/19 18:00 08/11/19 08:57 Lasix IV 80 mg 0900,1800 SOUMYA Administration Hydromorphone HCl 0.5 mg 08/02/19 01:32 08/11/19 03:24 Dilaudid IV 0.5 mg Q4H PRN Administration Pain , Severe (7-10) Insulin Human Lispro 0 unit 08/02/19 07:30 08/11/19 08:45 Humalog SUB-Q Not Given ACHS [facility] Protocol Metoclopramide HCl 10 mg 08/02/19 04:12 Reglan IV Q6H PRN Nausea And Vomiting Metoprolol Tartrate 50 mg 08/02/19 08:00 08/11/19 08:56 Metoprolol PO 50 mg TID SOUMYA Administration Metoprolol Tartrate 25 mg 08/02/19 08:00 08/11/19 08:55 Metoprolol PO 25 mg TID SOUMYA Administration Morphine Sulfate 2 mg 08/06/19 12:04 08/11/19 08:46 Morphine IV 2 mg Q4H PRN Administration Pain, Moderate (4-6) Nicotine 14 mg 08/02/19 10:00 08/11/19 09:10 Habitrol TD Not Given QDAY SOUMYA Ondansetron HCl 4 mg 08/02/19 04:12 Zofran IV Q8H PRN Nausea And Vomiting Oxycodone HCl 5 mg 08/02/19 04:18 08/09/19 23:27 Roxicodone PO 5 mg Q6H PRN Administration Pain, (7-10) Oxycodone/Acetaminophen 1 tab 08/02/19 04:09 08/10/19 11:13 Percocet 5/325 PO 1 tab Q6H PRN Administration Pain , Severe (7-10) Prednisone 20 mg 08/02/19 10:00 08/11/19 09:15 Deltasone PO 20 mg QDAY SOUMYA Administration Sodium Chloride 10 ml 08/02/19 04:12 08/11/19 03:43 Sodium Chloride Flush Syringe 10 Ml IV 10 ml PRN PRN Administration LINE FLUSH Sodium Chloride 10 ml 08/02/19 10:00 08/11/19 09:18 Sodium Chloride Flush Syringe 10 Ml IV 10 ml BID SOUMYA Administration Nutrition/Malnutrition Assess - Dietary Evaluation Nutrition/Malnutrition Findings: Nutrition Notes Start: 08/06/19 11:55 Freq: Status: Active Protocol: Document 08/09/19 12:58 LP (Rec: 08/09/19 13:01 LP [id number]) Nutrition Notes Initial or Follow up Reassessment Current Diagnosis COPD,Diabetes,Hypertension, Heart Failure Other Pertinent Diagnosis Renal failure, A-fib, staph infection, Plueral effusion, severe edema Current Diet Cardiac/ Consistent CHO Labs/Tests BG 80 Pertinent Medications Reviewed Height 6 ft 1 in Weight 100 kg [place] Body Weight (kg) 83.63 BMI 29.0 Subjective/Other Information Pt eating well. Consuming 100% of meals. Percent of energy/protein needs met: 100%/100% Burn Absent Trauma Absent GI Symptoms None Current % PO Good (75-100%) Minimum of two criteria Yes Body Fat Depletion Moderate depletion (severe) Muscle Mass Moderate Depletion (severe) Fluid Accumulation Moderate to Severe (severe) #1 Nutrition Diagnosis Malnutrition Diagnosis Progress(for reassessment Continues documentation) Is patient on ventilator? No Is Patient Ambulatory and/or Out of Bed Yes REE-([facility]-ambulatory/OOB) [ 2462.044 [id number]] Calculation Used for Recommendations [facility] Additional Notes Protein: 109-137 g/kg/day (1.2 -1.5 g/kg/day AdBW 91.8kg) Fluid: per MD Nutrition Intervention Change Diet Order: Continue cardiac/consistent CHO Add Supplement/Snack (indicate name/kcal Glucerna Vanilla and chocolate /protein ) TID Provides kCal: 660 Provides Protein (gm) 30 Goal #1 Meet >75% of energy and protein needs Anticipated Discharge Needs: Cardiac/Consistent CHO Follow-Up By: 08/16/19 Additional Comments Follow for stable intakes
--- NOTE | 2019-08-11 13:37 | Progress Note ---
Assessment and Plan Patient alert and awake, currently resting on 3L O2 via nasal cannula. O2 saturation is 97%. Pt reports feeling better. Pt afebrile, no leukocytosis. Decreased drainage from chest tube. Cytology and amylase still pending from pleural fluid. - Patient Problems (1) Acute and chronic respiratory failure Current Visit: No Status: Acute Qualifiers: Respiratory failure complication: hypoxia Qualified Code(s): J96.21 - Acute and chronic respiratory failure with hypoxia Plan to address problem: 1. O2 3 liters via nasal cannula. 2. albuterol and atrovent aerosol treatments q 6 hours 3. continue prednisone 4. continue levoquin 5. continue apixaban 6. Continue famotidine (2) CHF exacerbation Current Visit: Yes Status: Acute Plan to address problem: Pt is on IV lasix and management as per cardiology (3) Chest pain Current Visit: Yes Status: Acute Plan to address problem: Management as per cardiology (4) Chronic atrial fibrillation Current Visit: Yes Status: Acute Plan to address problem: Pt is on apixaban. Management as per cardiology. (5) Acute kidney injury superimposed on chronic kidney disease Current Visit: No Status: Acute Plan to address problem: management as per nephrology (6) COPD (chronic obstructive pulmonary disease) Current Visit: No Status: Acute Qualifiers: Chronic bronchitis type: mixed simple and mucopurulent Plan to address problem: 1. O2 3 liters via nasal cannula. 2. albuterol and atrovent aerosol treatments q 6 hours 3. continue prednisone 4. continue levoquin 5. continue apixaban 6. Continue famotidine 7. PFTs an out patient (7) Recurrent right pleural effusion Current Visit: No Status: Acute Plan to address problem: Patient has right chest tube placement. Patient draining cloudy fluid. recommend to send pleural fluid to cell count, LDH, Protein, Glucose, Amylase, Cytology, gram stain, C&S , AFB and fungus. Pleural fluid cell count reported WBC 348, RBC 669. Rest of the pleural fluid results pending. Pleural fluid is cloudy and was also sent for triglycerides testing Subjective Date of service: 08/11/19 Principal diagnosis: acute on chronic systolic HF, acute on chr, RF, nonischemic cardiom Interval history: Patient alert and awake, currently resting on 3L O2 via nasal cannula. O2 saturation is 97%. Pt reports feeling better. Pt afebrile, no leukocytosis. Decreased drainage from chest tube. Cytology and amylase still pending from pleural fluid. Objective Vital Signs - 12hr 08/11/19 08/11/19 08/11/19 03:21 03:24 07:46 Temperature 97.9 F 97.9 F Pulse Rate 45 L 64 Respiratory 16 22 18 Rate Blood Pressure 102/54 99/63 O2 Sat by Pulse 95 95 Oximetry 08/11/19 08/11/19 08/11/19 08:34 08:55 08:56 Temperature Pulse Rate 60 60 Respiratory Rate Blood Pressure O2 Sat by Pulse 95 Oximetry 08/11/19 11:04 Temperature 98.0 F Pulse Rate 68 Respiratory 18 Rate Blood Pressure 90/70 O2 Sat by Pulse 91 Oximetry Constitutional: no acute distress, alert, appears uncomfortable Eyes: non-icteric ENT: oropharynx moist Neck: supple, no lymphadenopathy, no JVD Effort: mildly labored Ascultation: Right: diminished breath sounds (improved breath sounds on right side) Cardiovascular: irregular rhythm, other (S1,S2) Gastrointestinal: normoactive bowel sounds, soft, non-tender Integumentary: normal, other (Wound on right lower leg.) Extremities: no cyanosis, edema (bilateral) Neurologic: normal mental status, non-focal exam, pupils equal and round, CN II- XII normal, motor strength normal and Psychiatric: mood appropriate, affect normal CBC and BMP: 08/11/19 05:17 08/11/19 05:17 ABG, PT/INR, D-dimer: ABG POC ABG pH 7.407 (7.35-7.45) 08/10/19 10:27 POC ABG pCO2 48.6 (35-45) H 08/10/19 10:27 POC ABG pO2 117 (80-105) H 08/10/19 10:27 POC ABG HCO3 30.6 (22-26 mml/L) 08/10/19 10:27 POC ABG Total CO2 32 (23-27mmol/L) 08/10/19 10:27 POC ABG O2 Sat 99 08/10/19 10:27 PT/INR, D-dimer PT 13.9 Sec. (12.2-14.9) 08/01/19 18:49 INR 1.08 (0.87-1.13) 08/01/19 18:49 Abnormal lab findings: Abnormal Labs 08/01/19 08/01/19 08/01/19 18:49 18:49 18:49 WBC Hgb 11.6 L Hct RDW 19.3 H Lymph % (Auto) 10.0 L [place] % (Auto) 9.5 H Lymph # 1.0 L [place] # 0.9 H Seg Neutrophils % 79.2 H Seg Neuts % (Manual) Lymphocytes % (Manual) Seg Neutrophils # Seg Neutrophils # Man Lymphocytes # (Manual) POC ABG pCO2 POC ABG pO2 Sodium Chloride Carbon Dioxide 21 L BUN Creatinine Glucose POC Glucose Calcium Total Bilirubin 1.80 H Direct Bilirubin 1.0 H Alkaline Phosphatase 212 H Lactate Dehydrogenase Troponin T 0.044 H NT-Pro-B Natriuret Pep 94028 H Albumin 3.4 L Digoxin 08/01/19 08/02/19 08/02/19 21:07 00:28 10:14 WBC Hgb Hct RDW Lymph % (Auto) [place] % (Auto) Lymph # [place] # Seg Neutrophils % Seg Neuts % (Manual) Lymphocytes % (Manual) Seg Neutrophils # Seg Neutrophils # Man Lymphocytes # (Manual) POC ABG pCO2 POC ABG pO2 Sodium Chloride Carbon Dioxide BUN Creatinine Glucose POC Glucose 115 H Calcium Total Bilirubin Direct Bilirubin Alkaline Phosphatase Lactate Dehydrogenase Troponin T 0.049 H 0.054 H NT-Pro-B Natriuret Pep Albumin Digoxin 08/02/19 08/02/19 08/02/19 11:18 16:04 21:51 WBC Hgb Hct RDW Lymph % (Auto) [place] % (Auto) Lymph # [place] # Seg Neutrophils % Seg Neuts % (Manual) Lymphocytes % (Manual) Seg Neutrophils # Seg Neutrophils # Man Lymphocytes # (Manual) POC ABG pCO2 POC ABG pO2 Sodium Chloride Carbon Dioxide BUN Creatinine Glucose POC Glucose 144 H 126 H 130 H Calcium Total Bilirubin Direct Bilirubin Alkaline Phosphatase Lactate Dehydrogenase Troponin T NT-Pro-B Natriuret Pep Albumin Digoxin 08/03/19 08/03/19 08/03/19 04:57 04:57 16:36 WBC Hgb 11.0 L Hct 34.3 L RDW 19.4 H Lymph % (Auto) 9.5 L [place] % (Auto) Lymph # 0.9 L [place] # Seg Neutrophils % 83.0 H Seg Neuts % (Manual) Lymphocytes % (Manual) Seg Neutrophils # 8.2 H Seg Neutrophils # Man Lymphocytes # (Manual) POC ABG pCO2 POC ABG pO2 Sodium Chloride Carbon Dioxide BUN 30 H Creatinine 2.1 H D Glucose 140 H POC Glucose 142 H Calcium 8.1 L Total Bilirubin Direct Bilirubin Alkaline Phosphatase 195 H Lactate Dehydrogenase Troponin T NT-Pro-B Natriuret Pep Albumin 2.9 L Digoxin 08/03/19 08/03/19 08/04/19 17:01 21:12 11:31 WBC Hgb Hct RDW Lymph % (Auto) [place] % (Auto) Lymph # [place] # Seg Neutrophils % Seg Neuts % (Manual) Lymphocytes % (Manual) Seg Neutrophils # Seg Neutrophils # Man Lymphocytes # (Manual) POC ABG pCO2 POC ABG pO2 Sodium Chloride Carbon Dioxide BUN Creatinine Glucose POC Glucose 158 H 59 L Calcium Total Bilirubin Direct Bilirubin Alkaline Phosphatase Lactate Dehydrogenase 199 H Troponin T NT-Pro-B Natriuret Pep Albumin Digoxin 08/04/19 08/04/19 08/05/19 16:07 21:05 05:16 WBC Hgb 10.9 L Hct 34.0 L RDW 19.4 H Lymph % (Auto) [place] % (Auto) Lymph # [place] # Seg Neutrophils % Seg Neuts % (Manual) 89.0 H Lymphocytes % (Manual) 5.0 L Seg Neutrophils # Seg Neutrophils # Man 8.3 H Lymphocytes # (Manual) 0.5 L POC ABG pCO2 POC ABG pO2 Sodium Chloride Carbon Dioxide BUN Creatinine Glucose POC Glucose 174 H 118 H Calcium Total Bilirubin Direct Bilirubin Alkaline Phosphatase Lactate Dehydrogenase Troponin T NT-Pro-B Natriuret Pep Albumin Digoxin 08/05/19 08/05/19 08/06/19 05:16 20:35 06:07 WBC 11.9 H Hgb 11.4 L Hct 35.0 L RDW 19.3 H Lymph % (Auto) 10.3 L [place] % (Auto) 7.7 H Lymph # [place] # 0.9 H Seg Neutrophils % 81.3 H Seg Neuts % (Manual) Lymphocytes % (Manual) Seg Neutrophils # 9.7 H Seg Neutrophils # Man Lymphocytes # (Manual) POC ABG pCO2 POC ABG pO2 Sodium 136 L Chloride Carbon Dioxide BUN 38 H Creatinine 1.9 H Glucose 160 H POC Glucose 125 H Calcium Total Bilirubin Direct Bilirubin Alkaline Phosphatase Lactate Dehydrogenase Troponin T NT-Pro-B Natriuret Pep Albumin Digoxin 08/06/19 08/06/19 08/06/19 06:07 11:44 15:40 WBC Hgb Hct RDW Lymph % (Auto) [place] % (Auto) Lymph # [place] # Seg Neutrophils % Seg Neuts % (Manual) Lymphocytes % (Manual) Seg Neutrophils # Seg Neutrophils # Man Lymphocytes # (Manual) POC ABG pCO2 POC ABG pO2 Sodium Chloride 97.5 L Carbon Dioxide BUN 41 H Creatinine 1.8 H Glucose POC Glucose 123 H 154 H Calcium Total Bilirubin Direct Bilirubin Alkaline Phosphatase Lactate Dehydrogenase Troponin T NT-Pro-B Natriuret Pep Albumin Digoxin 08/06/19 08/07/19 08/07/19 21:22 08:56 08:56 WBC Hgb 11.6 L Hct RDW 18.8 H Lymph % (Auto) [place] % (Auto) Lymph # [place] # Seg Neutrophils % Seg Neuts % (Manual) Lymphocytes % (Manual) Seg Neutrophils # Seg Neutrophils # Man Lymphocytes # (Manual) POC ABG pCO2 POC ABG pO2 Sodium Chloride 95.0 L Carbon Dioxide BUN 42 H Creatinine 1.8 H Glucose POC Glucose 108 H Calcium Total Bilirubin Direct Bilirubin Alkaline Phosphatase Lactate Dehydrogenase Troponin T NT-Pro-B Natriuret Pep Albumin Digoxin 08/07/19 08/07/19 08/07/19 12:39 16:31 20:50 WBC Hgb Hct RDW Lymph % (Auto) [place] % (Auto) Lymph # [place] # Seg Neutrophils % Seg Neuts % (Manual) Lymphocytes % (Manual) Seg Neutrophils # Seg Neutrophils # Man Lymphocytes # (Manual) POC ABG pCO2 POC ABG pO2 Sodium Chloride Carbon Dioxide BUN Creatinine Glucose POC Glucose 110 H 132 H 126 H Calcium Total Bilirubin Direct Bilirubin Alkaline Phosphatase Lactate Dehydrogenase Troponin T NT-Pro-B Natriuret Pep Albumin Digoxin 08/08/19 08/08/19 08/08/19 08:27 08:27 16:14 WBC Hgb 11.6 L Hct RDW 18.9 H Lymph % (Auto) [place] % (Auto) Lymph # [place] # Seg Neutrophils % Seg Neuts % (Manual) Lymphocytes % (Manual) Seg Neutrophils # Seg Neutrophils # Man Lymphocytes # (Manual) POC ABG pCO2 POC ABG pO2 Sodium Chloride 95.3 L Carbon Dioxide BUN 48 H Creatinine 1.7 H Glucose POC Glucose 155 H Calcium Total Bilirubin Direct Bilirubin Alkaline Phosphatase Lactate Dehydrogenase Troponin T NT-Pro-B Natriuret Pep Albumin Digoxin 08/08/19 08/09/19 08/09/19 21:24 11:44 11:44 WBC Hgb 11.1 L Hct 34.6 L RDW 19.0 H Lymph % (Auto) [place] % (Auto) Lymph # [place] # Seg Neutrophils % Seg Neuts % (Manual) Lymphocytes % (Manual) Seg Neutrophils # Seg Neutrophils # Man Lymphocytes # (Manual) POC ABG pCO2 POC ABG pO2 Sodium 134 L Chloride 91.2 L Carbon Dioxide BUN 51 H Creatinine 1.8 H Glucose 140 H POC Glucose 123 H Calcium Total Bilirubin Direct Bilirubin Alkaline Phosphatase Lactate Dehydrogenase Troponin T NT-Pro-B Natriuret Pep Albumin Digoxin 08/09/19 08/09/19 08/09/19 13:02 17:25 20:49 WBC Hgb Hct RDW Lymph % (Auto) [place] % (Auto) Lymph # [place] # Seg Neutrophils % Seg Neuts % (Manual) Lymphocytes % (Manual) Seg Neutrophils # Seg Neutrophils # Man Lymphocytes # (Manual) POC ABG pCO2 POC ABG pO2 Sodium Chloride Carbon Dioxide BUN Creatinine Glucose POC Glucose 150 H 106 H 138 H Calcium Total Bilirubin Direct Bilirubin Alkaline Phosphatase Lactate Dehydrogenase Troponin T NT-Pro-B Natriuret Pep Albumin Digoxin 08/10/19 08/10/19 08/10/19 05:56 05:56 10:27 WBC Hgb Hct RDW Lymph % (Auto) [place] % (Auto) Lymph # [place] # Seg Neutrophils % Seg Neuts % (Manual) Lymphocytes % (Manual) Seg Neutrophils # Seg Neutrophils # Man Lymphocytes # (Manual) POC ABG pCO2 48.6 H POC ABG pO2 117 H Sodium 136 L Chloride 94.1 L Carbon Dioxide BUN 50 H Creatinine 1.6 H Glucose POC Glucose Calcium Total Bilirubin Direct Bilirubin Alkaline Phosphatase Lactate Dehydrogenase Troponin T NT-Pro-B Natriuret Pep Albumin Digoxin 0.7 L 08/10/19 08/10/19 08/10/19 11:54 15:53 20:36 WBC Hgb Hct RDW Lymph % (Auto) [place] % (Auto) Lymph # [place] # Seg Neutrophils % Seg Neuts % (Manual) Lymphocytes % (Manual) Seg Neutrophils # Seg Neutrophils # Man Lymphocytes # (Manual) POC ABG pCO2 POC ABG pO2 Sodium Chloride Carbon Dioxide BUN Creatinine Glucose POC Glucose 109 H 162 H 113 H Calcium Total Bilirubin Direct Bilirubin Alkaline Phosphatase Lactate Dehydrogenase Troponin T NT-Pro-B Natriuret Pep Albumin Digoxin 08/11/19 08/11/19 08/11/19 05:17 05:17 11:17 WBC Hgb 11.7 L Hct RDW 19.0 H Lymph % (Auto) 11.7 L [place] % (Auto) 11.7 H Lymph # [place] # 1.2 H Seg Neutrophils % 75.1 H Seg Neuts % (Manual) Lymphocytes % (Manual) Seg Neutrophils # Seg Neutrophils # Man Lymphocytes # (Manual) POC ABG pCO2 POC ABG pO2 Sodium Chloride 93.6 L Carbon Dioxide BUN 55 H Creatinine 1.7 H Glucose POC Glucose 160 H Calcium Total Bilirubin Direct Bilirubin Alkaline Phosphatase 197 H Lactate Dehydrogenase Troponin T NT-Pro-B Natriuret Pep Albumin 3.3 L Digoxin Allied health notes reviewed: nursing
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
--- NOTE | 2019-08-11 16:19 | Progress Note ---
Assessment and Plan - Patient Problems (1) Acute kidney injury superimposed on chronic kidney disease Current Visit: No Status: Acute Plan to address problem: Acute kidney injury superimposed on chronic kidney disease improving current cr: 1.7 Baseline creatinine about 1.2- 1.3 Worsening renal function in the setting of significant volume overload We'll repeat chlorothiazide 500mg IV once. continue Lasix to 80 mg IV twice a day Strict I's and O's daily weights (2) CHF exacerbation Current Visit: Yes Status: Acute Plan to address problem: Congestive heart failure I reviewed Echocardiogram EF 10% We'll increase diuretic dose Needs daily weights salt and fluid RESTRICTION (3) Recurrent right pleural effusion Current Visit: No Status: Acute Plan to address problem: Recurrence right pleural effusion status post catheter placement Management per surgery Continue diuresis (4) Hyponatremia Current Visit: Yes Status: Acute Plan to address problem: Hyponatremia Fluid restriction continue diuresis Subjective Principal diagnosis: acute on chronic systolic HF, acute on chr, RF, nonischemic cardiom Interval history: 54-year-old gentleman with congestive heart failure volume overload and respiratory failure nephrology consulted for acute kidney injury Patient seen today still has significant lower extremity edema complaints of joint pain. Status post thoracentesis Reports shortness of breath is improving The patient's weight is 98.4 kg Objective - Vital Signs Vital signs: Vital Signs - 12hr 08/11/19 08/11/19 08/11/19 07:46 08:34 08:55 Temperature 97.9 F Pulse Rate 64 60 Respiratory 18 Rate Blood Pressure 99/63 O2 Sat by Pulse 95 95 Oximetry 08/11/19 08/11/19 08/11/19 08:56 11:04 14:21 Temperature 98.0 F Pulse Rate 60 68 Respiratory 18 Rate Blood Pressure 90/70 90/55 O2 Sat by Pulse 91 Oximetry 08/11/19 14:22 Temperature Pulse Rate Respiratory Rate Blood Pressure 90/55 O2 Sat by Pulse Oximetry - General Appearance General appearance: well-developed, well-nourished EENT: ATNC, PERRL, mucous membranes moist Neck: JVD Respiratory: Present: Decreased Breath Sounds Cardiology: regular, S1S2 Gastrointestinal: normal, normoactive bowel sounds Integumentary: no rash Neurologic: alert and oriented x3, CN 3-12 intact Musculoskeletal: deferred, other (grade 3 pitting edema. ) Psychiatric: mood/affect appropriate - Lab 08/11/19 05:17 08/11/19 05:17 Most recent lab results Calcium 9.1 mg/dL (8.4-10.2) 08/11/19 05:17 Magnesium 2.10 mg/dL (1.7-2.3) 08/10/19 05:56 - Imaging Chest x-ray: image reviewed (I reviewed chest x-ray with improvement in edema) Medications & Allergies - Medications Allergies/Adverse Reactions: Allergies Penicillins Allergy (Verified 03/05/19 22:41) Itching strawberry Allergy (Verified 03/05/19 22:41) Hives Home Medications: Home Medications Medication Instructions Recorded Confirmed Last Taken Type Aspirin [Aspirin BABY CHEW TAB] 81 mg PO QDAY #30 tab.chew 03/14/19 08/02/19 07/19/19 15:57 Rx Acetaminophen [Acetaminophen TAB] 2 tab PO Q4H PRN #15 tablet 06/25/19 08/02/19 07/19/19 15:58 Rx Apixaban [Eliquis] 1 tab PO BID #60 tablet 07/24/19 08/02/19 Unknown Rx AtorvaSTATin [Lipitor] 40 mg PO QHS #30 tablet 07/24/19 08/02/19 Unknown Rx Colchicine 0.6 mg PO QDAY #10 capsule 07/24/19 08/02/19 Unknown Rx Digoxin [Lanoxin] 0.25 mg PO DAILY@1700 #30 tablet 07/24/19 08/02/19 Unknown Rx Docusate Sodium [Colace CAP] 100 mg PO BID capsule 07/24/19 08/02/19 Unknown Rx Metoprolol [Lopressor TAB] 75 mg PO TID #90 tablet 07/24/19 08/02/19 Unknown Rx Nicotine [Habitrol] 14 mg TD QDAY #30 patch 07/24/19 08/02/19 Unknown Rx Oxycodone HCl/Acetaminophen 1 each PO Q6HR PRN #20 tablet 07/24/19 08/02/19 Unknown Rx [Percocet 10/325 mg] Sodium Bicarbonate 1,300 mg PO BID #90 tablet 07/24/19 08/02/19 Unknown Rx Torsemide [Demadex] 100 mg PO DAILY@0600 #30 tablet 07/24/19 08/02/19 Unknown Rx guaiFENesin ER [Mucinex ER] 600 mg PO BID #60 tablet 07/24/19 08/02/19 Unknown Rx oxyCODONE /ACETAMINOPHEN [Percocet 1 tab PO Q6H PRN tablet 07/24/19 08/02/19 Unknown Rx 5/325 mg] predniSONE [Deltasone] 20 mg PO QDAY #7 tablet 07/24/19 08/02/19 Unknown Rx Active Medications: Generic Name Dose Route Start Last Admin Trade Name Freq PRN Reason Stop Dose Admin Acetaminophen 650 mg 08/06/19 12:38 Tylenol PO Q4H PRN Pain MILD(1-3)/Fever >100.5/TRUJILLO Apixaban 5 mg 08/02/19 10:00 08/11/19 09:15 Eliquis PO 5 mg BID SOUMYA Administration Protocol Aspirin 81 mg 08/02/19 10:00 08/11/19 09:15 Baby Aspirin PO 81 mg QDAY SOUMYA Administration Atorvastatin Calcium 40 mg 08/02/19 22:00 08/10/19 21:11 Lipitor PO 40 mg QHS SOUMYA Administration Cephalexin 500 mg 08/10/19 17:00 08/11/19 14:06 Keflex PO 500 mg Q8HR SOUMYA Administration Chlorothiazide Sodium 500 mg 08/11/19 17:00 Diuril IV 08/11/19 17:01 ONCE ONE Digoxin 0.25 mg 08/04/19 17:00 08/10/19 16:01 Lanoxin PO 0.25 mg Q48H SOUMYA Administration Docusate Sodium 100 mg 08/02/19 10:00 08/11/19 09:16 Colace PO 100 mg BID SOUMYA Administration Famotidine 20 mg 08/02/19 10:00 08/11/19 09:14 Pepcid PO 20 mg BID SOUMYA Administration Furosemide 80 mg 08/09/19 18:00 08/11/19 08:57 Lasix IV 80 mg 0900,1800 SOUMYA Administration Hydromorphone HCl 0.5 mg 08/02/19 01:32 08/11/19 14:08 Dilaudid IV 0.5 mg Q4H PRN Administration Pain , Severe (7-10) Insulin Human Lispro 0 unit 08/02/19 07:30 08/11/19 14:07 Humalog SUB-Q 2 unit ACHS SOUMYA Administration Protocol Metoclopramide HCl 10 mg 08/02/19 04:12 Reglan IV Q6H PRN Nausea And Vomiting Metoprolol Tartrate 50 mg 08/02/19 08:00 08/11/19 14:21 Metoprolol PO Not Given TID [facility] Metoprolol Tartrate 25 mg 08/02/19 08:00 08/11/19 14:22 Metoprolol PO Not Given TID [facility] Morphine Sulfate 2 mg 08/06/19 12:04 08/11/19 08:46 Morphine IV 2 mg Q4H PRN Administration Pain, Moderate (4-6) Nicotine 14 mg 08/02/19 10:00 08/11/19 09:10 Habitrol TD Not Given QDAY [facility] Ondansetron HCl 4 mg 08/02/19 04:12 Zofran IV Q8H PRN Nausea And Vomiting Oxycodone HCl 5 mg 08/02/19 04:18 08/09/19 23:27 Roxicodone PO 5 mg Q6H PRN Administration Pain, (7-10) Oxycodone/Acetaminophen 1 tab 08/02/19 04:09 08/10/19 11:13 Percocet 5/325 PO 1 tab Q6H PRN Administration Pain , Severe (7-10) Prednisone 20 mg 08/02/19 10:00 08/11/19 09:15 Deltasone PO 20 mg QDAY SOUMYA Administration Sodium Chloride 10 ml 08/02/19 04:12 08/11/19 03:43 Sodium Chloride Flush Syringe 10 Ml IV 10 ml PRN PRN Administration LINE FLUSH Sodium Chloride 10 ml 08/02/19 10:00 08/11/19 09:18 Sodium Chloride Flush Syringe 10 Ml IV 10 ml BID SOUMYA Administration
[2019-08-11] MEDS ORDERED: CHLOROTHIAZIDE 500 MG VIAL IV ONE (17:00)
[2019-08-11] MEDS ORDERED: SODIUM CHLORIDE 0.9% IV ONE (17:00)
[2019-08-11] MEDS ORDERED: CHLOROTHIAZIDE SODIUM IV ONE (17:00)
[2019-08-11] MEDS ORDERED: MAGNESIUM OXIDE 400 MG TAB PO SCH (20:30)
[2019-08-12] MEDS: cephALEXin 500 MG CAP PO SCH ×3 (06:00→21:35)
[2019-08-12] MEDS: FUROSEMIDE 40 MG/4 ML INJ IV SCH ×2 (08:35→17:43)
[2019-08-12] MEDS: METOPROLOL TARTRATE 25 MG TAB PO SCH ×3 (08:35→22:20)
[2019-08-12] MEDS: HYDROmorphone 1 MG/1 ML INJ IV PRN ×4 (08:36→21:48)
[2019-08-12] MEDS: METOPROLOL TARTRATE 50 MG TAB PO SCH ×3 (08:36→22:20)
[2019-08-12] MEDS: INSULIN LISPRO 100 UNIT/ML SUB-Q SCH ×4 (08:37→22:00)
[2019-08-12] MEDS: FAMOTIDINE 20 MG TAB PO SCH ×2 (09:56→21:34)
[2019-08-12] MEDS: predniSONE 20 MG TAB PO SCH (09:56)
[2019-08-12] MEDS: DOCUSATE SODIUM 100 MG CAP PO SCH ×2 (09:56→21:35)
[2019-08-12] MEDS: APIXABAN 5 MG TAB PO SCH ×2 (09:56→21:34)
[2019-08-12] MEDS: ASPIRIN 81 MG TAB CHEW PO SCH (09:56)
[2019-08-12] MEDS: NICOTINE 14 MG/24 HR PATCH TD SCH (09:57)
[2019-08-12] MEDS ORDERED: MAGNESIUM OXIDE 400 MG TAB PO SCH (10:00)
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
--- NOTE | 2019-08-12 12:12 | Progress Note ---
Assessment and Plan Recurrent Pleural effusion s/p thoracentesis s/p right chest tube Chronic systolic heart failure Chronic renal failure LLE ulcer -culture 08/03/2019 +MSSA Chronic atrial fibrillation on Eliquis for oral anticoagulation as an outpatient rate controlled with metoprolol and digoxin; dig level at 0.7 this presentation Hx of Nonischemic cardiomyopathy EF 15-20% by echo 11/2018 Presence of the ICD an interrogation this admission reports no ventricular arrhythmias or ICD discharge; a normal functioning device. Essential hypertension Type 2 diabetes mellitus Chronic obstructive pulmonary disease Recommendations: Continue fluid/sodium restriction. Continue medical therapy for chronic systolic heart failure and rate controlling agents for chronic atrial fibrillation. We will follow intermittently. Subjective Date of service: 08/12/19 Principal diagnosis: acute on chronic systolic HF, acute on chr, RF, nonischemic cardiom Interval history: Physical therapy is at the bedside. No distress noted. Right chest tube remains in place. Afib with a well controlled ventricular rate on telemetry. Objective Vital Signs Temp Pulse Pulse Pulse Resp BP Pulse Ox 08/12/19 12:03 98.3 F 18 116/73 08/12/19 10:00 100 08/12/19 09:54 59 L 125/83 97 08/12/19 08:36 66 108/66 08/12/19 08:35 66 108/68 08/12/19 08:34 67 108/68 97 08/12/19 08:01 98.5 F 63 20 90/59 94 08/12/19 05:38 97.7 F 08/12/19 05:37 60 20 91/50 98 08/11/19 23:31 97.9 F 08/11/19 23:27 60 20 98/60 94 08/11/19 22:04 99 08/11/19 22:00 60 70 64 18 98 08/11/19 21:47 68 116/64 08/11/19 20:15 97.5 F L 70 18 113/68 95 08/11/19 15:37 97.9 F 61 18 101/59 97 08/11/19 14:22 90/55 08/11/19 14:21 90/55 - Physical Examination General: No Apparent Distress HEENT: Positive: PERRL Neck: Positive: trachea midline Cardiac: Positive: irregularly irregular Lungs: Positive: Decreased Breath Sounds Neuro: Positive: Grossly Intact Extremities: Present: edema, Other (LLE ulcer) - Allied health notes Allied health notes reviewed: nursing
--- NOTE | 2019-08-12 13:34 | Progress Note ---
Assessment and Plan Acute hypoxemic respiratory failure. Recurrent right pleural effusion, large. Acute CHF exacerbation (EF 15-20% by echo 11/2018) Acute on chronic kidney injury. Paroxysmal atrial fibrillation. AICD malfunction. Hypertension. Diabetes type II COPD - stopped wall suction - tentatively pull right chest tube in am after reviewing CXR - am CXR ordered - stop prednisone - continue to wean supplemental oxygen to keep O2 sats>90% - continue to optimize heart failure measures while monitoring hemodynamics and renal function - continue Bronchodilators with pulm hygiene per RT - continue anticoagulation for A-fid - continue to avoid nephrotoxins, renally dose all medications - continue mobility protocols to prevent pressure ulcers - PT/OT/Wound care - continue accuchecks with glycemic control per SSI for target blood glucose < 180mg/dL - Smoking cessation counseling done at the bedside - home oxygen evaluation at discharge - Pulmonary out patient follow up for PFTs and optimization of respiratory status - continue other care per attending / other consultants - prn analgesia per pain score ... re-evaluate in am & prn Subjective Date of service: 08/12/19 Principal diagnosis: Ac. hypoxemic Resp failure; Right pleural effusion; AE-CHF; ESTEVAN on CKD Interval history: Patient is seen today for: Ac. hypoxemic Resp failure; R. pleural effusion; AE- CHF; ESTEVAN on CKD; AICD malfunction; HTN; Diabetes type II; COPD Seen and examined at bedside; 24hour events reviewed; nursing and respiratory care staff consulted; no adverse overnight events reported to me; Objective Vital Signs - 12hr 08/12/19 08/12/19 08/12/19 05:37 05:38 08:01 Temperature 97.7 F 98.5 F Pulse Rate 60 63 Respiratory 20 20 Rate Blood Pressure 91/50 90/59 O2 Sat by Pulse 98 94 Oximetry 08/12/19 08/12/19 08/12/19 08:34 08:35 08:36 Temperature Pulse Rate 67 66 66 Respiratory Rate Blood Pressure 108/68 108/68 108/66 O2 Sat by Pulse 97 Oximetry 08/12/19 08/12/19 08/12/19 09:54 10:00 12:03 Temperature 98.3 F Pulse Rate 59 L 78 Respiratory 18 Rate Blood Pressure 125/83 116/73 O2 Sat by Pulse 97 100 Oximetry Constitutional: no acute distress, alert, appears uncomfortable Eyes: non-icteric ENT: oropharynx moist Neck: supple, no lymphadenopathy, no JVD Effort: mildly labored Ascultation: Right: diminished breath sounds (improved breath sounds on right side) Cardiovascular: irregular rhythm, other (S1,S2) Gastrointestinal: normoactive bowel sounds, soft, non-tender Integumentary: normal, other (Wound on right lower leg.) Extremities: no cyanosis, edema (bilateral) Neurologic: normal mental status, non-focal exam, pupils equal and round, CN II- XII normal, motor strength normal and Psychiatric: mood appropriate, affect normal CBC and BMP: 08/11/19 05:17 08/12/19 13:08 ABG, PT/INR, D-dimer: ABG POC ABG pH 7.407 (7.35-7.45) 08/10/19 10:27 POC ABG pCO2 48.6 (35-45) H 08/10/19 10:27 POC ABG pO2 117 (80-105) H 08/10/19 10:27 POC ABG HCO3 30.6 (22-26 mml/L) 08/10/19 10:27 POC ABG Total CO2 32 (23-27mmol/L) 08/10/19 10:27 POC ABG O2 Sat 99 08/10/19 10:27 PT/INR, D-dimer PT 13.9 Sec. (12.2-14.9) 08/01/19 18:49 INR 1.08 (0.87-1.13) 08/01/19 18:49 Abnormal lab findings: Abnormal Labs 08/01/19 08/01/19 08/01/19 18:49 18:49 18:49 WBC Hgb 11.6 L Hct RDW 19.3 H Lymph % (Auto) 10.0 L [place] % (Auto) 9.5 H Lymph # 1.0 L [place] # 0.9 H Seg Neutrophils % 79.2 H Seg Neuts % (Manual) Lymphocytes % (Manual) Seg Neutrophils # Seg Neutrophils # Man Lymphocytes # (Manual) POC ABG pCO2 POC ABG pO2 Sodium Chloride Carbon Dioxide 21 L BUN Creatinine Glucose POC Glucose Calcium Total Bilirubin 1.80 H Direct Bilirubin 1.0 H Alkaline Phosphatase 212 H Lactate Dehydrogenase Troponin T 0.044 H NT-Pro-B Natriuret Pep 31334 H Albumin 3.4 L Digoxin 08/01/19 08/02/19 08/02/19 21:07 00:28 10:14 WBC Hgb Hct RDW Lymph % (Auto) [place] % (Auto) Lymph # [place] # Seg Neutrophils % Seg Neuts % (Manual) Lymphocytes % (Manual) Seg Neutrophils # Seg Neutrophils # Man Lymphocytes # (Manual) POC ABG pCO2 POC ABG pO2 Sodium Chloride Carbon Dioxide BUN Creatinine Glucose POC Glucose 115 H Calcium Total Bilirubin Direct Bilirubin Alkaline Phosphatase Lactate Dehydrogenase Troponin T 0.049 H 0.054 H NT-Pro-B Natriuret Pep Albumin Digoxin 08/02/19 08/02/19 08/02/19 11:18 16:04 21:51 WBC Hgb Hct RDW Lymph % (Auto) [place] % (Auto) Lymph # [place] # Seg Neutrophils % Seg Neuts % (Manual) Lymphocytes % (Manual) Seg Neutrophils # Seg Neutrophils # Man Lymphocytes # (Manual) POC ABG pCO2 POC ABG pO2 Sodium Chloride Carbon Dioxide BUN Creatinine Glucose POC Glucose 144 H 126 H 130 H Calcium Total Bilirubin Direct Bilirubin Alkaline Phosphatase Lactate Dehydrogenase Troponin T NT-Pro-B Natriuret Pep Albumin Digoxin 08/03/19 08/03/19 08/03/19 04:57 04:57 16:36 WBC Hgb 11.0 L Hct 34.3 L RDW 19.4 H Lymph % (Auto) 9.5 L [place] % (Auto) Lymph # 0.9 L [place] # Seg Neutrophils % 83.0 H Seg Neuts % (Manual) Lymphocytes % (Manual) Seg Neutrophils # 8.2 H Seg Neutrophils # Man Lymphocytes # (Manual) POC ABG pCO2 POC ABG pO2 Sodium Chloride Carbon Dioxide BUN 30 H Creatinine 2.1 H D Glucose 140 H POC Glucose 142 H Calcium 8.1 L Total Bilirubin Direct Bilirubin Alkaline Phosphatase 195 H Lactate Dehydrogenase Troponin T NT-Pro-B Natriuret Pep Albumin 2.9 L Digoxin 08/03/19 08/03/19 08/04/19 17:01 21:12 11:31 WBC Hgb Hct RDW Lymph % (Auto) [place] % (Auto) Lymph # [place] # Seg Neutrophils % Seg Neuts % (Manual) Lymphocytes % (Manual) Seg Neutrophils # Seg Neutrophils # Man Lymphocytes # (Manual) POC ABG pCO2 POC ABG pO2 Sodium Chloride Carbon Dioxide BUN Creatinine Glucose POC Glucose 158 H 59 L Calcium Total Bilirubin Direct Bilirubin Alkaline Phosphatase Lactate Dehydrogenase 199 H Troponin T NT-Pro-B Natriuret Pep Albumin Digoxin 08/04/19 08/04/19 08/05/19 16:07 21:05 05:16 WBC Hgb 10.9 L Hct 34.0 L RDW 19.4 H Lymph % (Auto) [place] % (Auto) Lymph # [place] # Seg Neutrophils % Seg Neuts % (Manual) 89.0 H Lymphocytes % (Manual) 5.0 L Seg Neutrophils # Seg Neutrophils # Man 8.3 H Lymphocytes # (Manual) 0.5 L POC ABG pCO2 POC ABG pO2 Sodium Chloride Carbon Dioxide BUN Creatinine Glucose POC Glucose 174 H 118 H Calcium Total Bilirubin Direct Bilirubin Alkaline Phosphatase Lactate Dehydrogenase Troponin T NT-Pro-B Natriuret Pep Albumin Digoxin 08/05/19 08/05/19 08/06/19 05:16 20:35 06:07 WBC 11.9 H Hgb 11.4 L Hct 35.0 L RDW 19.3 H Lymph % (Auto) 10.3 L [place] % (Auto) 7.7 H Lymph # [place] # 0.9 H Seg Neutrophils % 81.3 H Seg Neuts % (Manual) Lymphocytes % (Manual) Seg Neutrophils # 9.7 H Seg Neutrophils # Man Lymphocytes # (Manual) POC ABG pCO2 POC ABG pO2 Sodium 136 L Chloride Carbon Dioxide BUN 38 H Creatinine 1.9 H Glucose 160 H POC Glucose 125 H Calcium Total Bilirubin Direct Bilirubin Alkaline Phosphatase Lactate Dehydrogenase Troponin T NT-Pro-B Natriuret Pep Albumin Digoxin 08/06/19 08/06/19 08/06/19 06:07 11:44 15:40 WBC Hgb Hct RDW Lymph % (Auto) [place] % (Auto) Lymph # [place] # Seg Neutrophils % Seg Neuts % (Manual) Lymphocytes % (Manual) Seg Neutrophils # Seg Neutrophils # Man Lymphocytes # (Manual) POC ABG pCO2 POC ABG pO2 Sodium Chloride 97.5 L Carbon Dioxide BUN 41 H Creatinine 1.8 H Glucose POC Glucose 123 H 154 H Calcium Total Bilirubin Direct Bilirubin Alkaline Phosphatase Lactate Dehydrogenase Troponin T NT-Pro-B Natriuret Pep Albumin Digoxin 08/06/19 08/07/19 08/07/19 21:22 08:56 08:56 WBC Hgb 11.6 L Hct RDW 18.8 H Lymph % (Auto) [place] % (Auto) Lymph # [place] # Seg Neutrophils % Seg Neuts % (Manual) Lymphocytes % (Manual) Seg Neutrophils # Seg Neutrophils # Man Lymphocytes # (Manual) POC ABG pCO2 POC ABG pO2 Sodium Chloride 95.0 L Carbon Dioxide BUN 42 H Creatinine 1.8 H Glucose POC Glucose 108 H Calcium Total Bilirubin Direct Bilirubin Alkaline Phosphatase Lactate Dehydrogenase Troponin T NT-Pro-B Natriuret Pep Albumin Digoxin 08/07/19 08/07/19 08/07/19 12:39 16:31 20:50 WBC Hgb Hct RDW Lymph % (Auto) [place] % (Auto) Lymph # [place] # Seg Neutrophils % Seg Neuts % (Manual) Lymphocytes % (Manual) Seg Neutrophils # Seg Neutrophils # Man Lymphocytes # (Manual) POC ABG pCO2 POC ABG pO2 Sodium Chloride Carbon Dioxide BUN Creatinine Glucose POC Glucose 110 H 132 H 126 H Calcium Total Bilirubin Direct Bilirubin Alkaline Phosphatase Lactate Dehydrogenase Troponin T NT-Pro-B Natriuret Pep Albumin Digoxin 08/08/19 08/08/19 08/08/19 08:27 08:27 16:14 WBC Hgb 11.6 L Hct RDW 18.9 H Lymph % (Auto) [place] % (Auto) Lymph # [place] # Seg Neutrophils % Seg Neuts % (Manual) Lymphocytes % (Manual) Seg Neutrophils # Seg Neutrophils # Man Lymphocytes # (Manual) POC ABG pCO2 POC ABG pO2 Sodium Chloride 95.3 L Carbon Dioxide BUN 48 H Creatinine 1.7 H Glucose POC Glucose 155 H Calcium Total Bilirubin Direct Bilirubin Alkaline Phosphatase Lactate Dehydrogenase Troponin T NT-Pro-B Natriuret Pep Albumin Digoxin 08/08/19 08/09/19 08/09/19 21:24 11:44 11:44 WBC Hgb 11.1 L Hct 34.6 L RDW 19.0 H Lymph % (Auto) [place] % (Auto) Lymph # [place] # Seg Neutrophils % Seg Neuts % (Manual) Lymphocytes % (Manual) Seg Neutrophils # Seg Neutrophils # Man Lymphocytes # (Manual) POC ABG pCO2 POC ABG pO2 Sodium 134 L Chloride 91.2 L Carbon Dioxide BUN 51 H Creatinine 1.8 H Glucose 140 H POC Glucose 123 H Calcium Total Bilirubin Direct Bilirubin Alkaline Phosphatase Lactate Dehydrogenase Troponin T NT-Pro-B Natriuret Pep Albumin Digoxin 08/09/19 08/09/19 08/09/19 13:02 17:25 20:49 WBC Hgb Hct RDW Lymph % (Auto) [place] % (Auto) Lymph # [place] # Seg Neutrophils % Seg Neuts % (Manual) Lymphocytes % (Manual) Seg Neutrophils # Seg Neutrophils # Man Lymphocytes # (Manual) POC ABG pCO2 POC ABG pO2 Sodium Chloride Carbon Dioxide BUN Creatinine Glucose POC Glucose 150 H 106 H 138 H Calcium Total Bilirubin Direct Bilirubin Alkaline Phosphatase Lactate Dehydrogenase Troponin T NT-Pro-B Natriuret Pep Albumin Digoxin 08/10/19 08/10/19 08/10/19 05:56 05:56 10:27 WBC Hgb Hct RDW Lymph % (Auto) [place] % (Auto) Lymph # [place] # Seg Neutrophils % Seg Neuts % (Manual) Lymphocytes % (Manual) Seg Neutrophils # Seg Neutrophils # Man Lymphocytes # (Manual) POC ABG pCO2 48.6 H POC ABG pO2 117 H Sodium 136 L Chloride 94.1 L Carbon Dioxide BUN 50 H Creatinine 1.6 H Glucose POC Glucose Calcium Total Bilirubin Direct Bilirubin Alkaline Phosphatase Lactate Dehydrogenase Troponin T NT-Pro-B Natriuret Pep Albumin Digoxin 0.7 L 08/10/19 08/10/19 08/10/19 11:54 15:53 20:36 WBC Hgb Hct RDW Lymph % (Auto) [place] % (Auto) Lymph # [place] # Seg Neutrophils % Seg Neuts % (Manual) Lymphocytes % (Manual) Seg Neutrophils # Seg Neutrophils # Man Lymphocytes # (Manual) POC ABG pCO2 POC ABG pO2 Sodium Chloride Carbon Dioxide BUN Creatinine Glucose POC Glucose 109 H 162 H 113 H Calcium Total Bilirubin Direct Bilirubin Alkaline Phosphatase Lactate Dehydrogenase Troponin T NT-Pro-B Natriuret Pep Albumin Digoxin 08/11/19 08/11/19 08/11/19 05:17 05:17 11:17 WBC Hgb 11.7 L Hct RDW 19.0 H Lymph % (Auto) 11.7 L [place] % (Auto) 11.7 H Lymph # [place] # 1.2 H Seg Neutrophils % 75.1 H Seg Neuts % (Manual) Lymphocytes % (Manual) Seg Neutrophils # Seg Neutrophils # Man Lymphocytes # (Manual) POC ABG pCO2 POC ABG pO2 Sodium Chloride 93.6 L Carbon Dioxide BUN 55 H Creatinine 1.7 H Glucose POC Glucose 160 H Calcium Total Bilirubin Direct Bilirubin Alkaline Phosphatase 197 H Lactate Dehydrogenase Troponin T NT-Pro-B Natriuret Pep Albumin 3.3 L Digoxin 08/11/19 08/11/19 08/12/19 16:29 21:23 12:10 WBC Hgb Hct RDW Lymph % (Auto) [place] % (Auto) Lymph # [place] # Seg Neutrophils % Seg Neuts % (Manual) Lymphocytes % (Manual) Seg Neutrophils # Seg Neutrophils # Man Lymphocytes # (Manual) POC ABG pCO2 POC ABG pO2 Sodium Chloride Carbon Dioxide BUN Creatinine Glucose POC Glucose 143 H 175 H 111 H Calcium Total Bilirubin Direct Bilirubin Alkaline Phosphatase Lactate Dehydrogenase Troponin T NT-Pro-B Natriuret Pep Albumin Digoxin Allied health notes reviewed: nursing
--- NOTE | 2019-08-12 15:09 | Progress Note ---
Assessment and Plan - Patient Problems (1) Acute kidney injury superimposed on chronic kidney disease Current Visit: No Status: Acute Plan to address problem: Acute kidney injury superimposed on chronic kidney disease improving current cr: 1.7 Baseline creatinine about 1.2- 1.3 Worsening renal function in the setting of significant volume overload Received several doses of Chlorothiazide as well. continue Lasix to 80 mg IV twice a day Strict I's and O's daily weights (2) CHF exacerbation Current Visit: Yes Status: Acute Plan to address problem: Congestive heart failure I reviewed Echocardiogram EF 10% We'll increase diuretic dose Needs daily weights salt and fluid RESTRICTION (3) Recurrent right pleural effusion Current Visit: No Status: Acute Plan to address problem: Recurrence right pleural effusion status post catheter placement Management per surgery Continue diuresis (4) Hyponatremia Current Visit: Yes Status: Acute Plan to address problem: Hyponatremia :resolved Fluid restriction continue diuresis Subjective Principal diagnosis: Ac. hypoxemic Resp failure; Right pleural effusion; AE-CHF; ESTEVAN on CKD Interval history: 54-year-old gentleman with congestive heart failure volume overload and respiratory failure nephrology consulted for acute kidney injury Patient seen today still has significant lower extremity edema complaints of bilateral extremity pain. Status post thoracentesis, chest tube in place Reports shortness of breath is much improved Objective - Vital Signs Vital signs: Vital Signs - 12hr 08/12/19 08/12/19 08/12/19 05:37 05:38 08:01 Temperature 97.7 F 98.5 F Pulse Rate 60 63 Pulse Rate [ Apical] Pulse Rate [ Left Radial] Pulse Rate [ Right Radial] Respiratory 20 20 Rate Blood Pressure 91/50 90/59 O2 Sat by Pulse 98 94 Oximetry 08/12/19 08/12/19 08/12/19 08:34 08:35 08:36 Temperature Pulse Rate 67 66 66 Pulse Rate [ Apical] Pulse Rate [ Left Radial] Pulse Rate [ Right Radial] Respiratory Rate Blood Pressure 108/68 108/68 108/66 O2 Sat by Pulse 97 Oximetry 08/12/19 08/12/19 08/12/19 09:54 10:00 12:03 Temperature 98.3 F Pulse Rate 59 L 78 Pulse Rate [ 71 Apical] Pulse Rate [ 71 Left Radial] Pulse Rate [ 71 Right Radial] Respiratory 22 18 Rate Blood Pressure 125/83 116/73 O2 Sat by Pulse 97 100 Oximetry 08/12/19 08/12/19 13:41 13:42 Temperature Pulse Rate 71 71 Pulse Rate [ Apical] Pulse Rate [ Left Radial] Pulse Rate [ Right Radial] Respiratory Rate Blood Pressure 114/63 114/63 O2 Sat by Pulse Oximetry - General Appearance General appearance: well-developed, well-nourished EENT: ATNC, PERRL Neck: no JVD Respiratory: Present: Clear to Ascultation Cardiology: regular, S1S2 Gastrointestinal: normal, normoactive bowel sounds Integumentary: no rash Neurologic: no focal deficit, alert and oriented x3 Psychiatric: mood/affect appropriate - Lab 08/11/19 05:17 08/12/19 13:08 Most recent lab results Calcium 9.0 mg/dL (8.4-10.2) 08/12/19 13:08 Magnesium 2.10 mg/dL (1.7-2.3) 08/10/19 05:56 - Imaging Chest x-ray: image reviewed (I reviewed chest x-ray with improvement in effusion) Medications & Allergies - Medications Allergies/Adverse Reactions: Allergies Penicillins Allergy (Verified 03/05/19 22:41) Itching strawberry Allergy (Verified 03/05/19 22:41) Hives Home Medications: Home Medications Medication Instructions Recorded Confirmed Last Taken Type Aspirin [Aspirin BABY CHEW TAB] 81 mg PO QDAY #30 tab.chew 03/14/19 08/02/19 07/19/19 15:57 Rx Acetaminophen [Acetaminophen TAB] 2 tab PO Q4H PRN #15 tablet 06/25/19 08/02/19 07/19/19 15:58 Rx Apixaban [Eliquis] 1 tab PO BID #60 tablet 07/24/19 08/02/19 Unknown Rx AtorvaSTATin [Lipitor] 40 mg PO QHS #30 tablet 07/24/19 08/02/19 Unknown Rx Colchicine 0.6 mg PO QDAY #10 capsule 07/24/19 08/02/19 Unknown Rx Digoxin [Lanoxin] 0.25 mg PO DAILY@1700 #30 tablet 07/24/19 08/02/19 Unknown Rx Docusate Sodium [Colace CAP] 100 mg PO BID capsule 07/24/19 08/02/19 Unknown Rx Metoprolol [Lopressor TAB] 75 mg PO TID #90 tablet 07/24/19 08/02/19 Unknown Rx Nicotine [Habitrol] 14 mg TD QDAY #30 patch 07/24/19 08/02/19 Unknown Rx Oxycodone HCl/Acetaminophen 1 each PO Q6HR PRN #20 tablet 07/24/19 08/02/19 Unknown Rx [Percocet 10/325 mg] Sodium Bicarbonate 1,300 mg PO BID #90 tablet 07/24/19 08/02/19 Unknown Rx Torsemide [Demadex] 100 mg PO DAILY@0600 #30 tablet 07/24/19 08/02/19 Unknown Rx guaiFENesin ER [Mucinex ER] 600 mg PO BID #60 tablet 07/24/19 08/02/19 Unknown Rx oxyCODONE /ACETAMINOPHEN [Percocet 1 tab PO Q6H PRN tablet 07/24/19 08/02/19 Unknown Rx 5/325 mg] predniSONE [Deltasone] 20 mg PO QDAY #7 tablet 07/24/19 08/02/19 Unknown Rx Active Medications: Generic Name Dose Route Start Last Admin Trade Name Freq PRN Reason Stop Dose Admin Acetaminophen 650 mg 08/06/19 12:38 Tylenol PO Q4H PRN Pain MILD(1-3)/Fever >100.5/TRUJILLO Apixaban 5 mg 08/02/19 10:00 08/12/19 09:56 Eliquis PO 5 mg BID SOUMYA Administration Protocol Aspirin 81 mg 08/02/19 10:00 08/12/19 09:56 Baby Aspirin PO 81 mg QDAY SOUMYA Administration Atorvastatin Calcium 40 mg 08/02/19 22:00 08/11/19 21:37 Lipitor PO 40 mg QHS SOUMYA Administration Cephalexin 500 mg 08/10/19 17:00 08/12/19 13:42 Keflex PO 500 mg Q8HR SOUMYA Administration Digoxin 0.25 mg 08/04/19 17:00 08/10/19 16:01 Lanoxin PO 0.25 mg Q48H SOUMYA Administration Docusate Sodium 100 mg 08/02/19 10:00 08/12/19 09:56 Colace PO 100 mg BID SOUMYA Administration Famotidine 20 mg 08/02/19 10:00 08/12/19 09:56 Pepcid PO 20 mg BID SOUMYA Administration Furosemide 80 mg 08/09/19 18:00 08/12/19 08:35 Lasix IV 80 mg 0900,1800 SOUMYA Administration Hydromorphone HCl 0.5 mg 08/02/19 01:32 08/12/19 13:43 Dilaudid IV 0.5 mg Q4H PRN Administration Pain , Severe (7-10) Insulin Human Lispro 0 unit 08/02/19 07:30 08/12/19 12:51 Humalog SUB-Q Not Given ACHS [facility] Protocol Metoclopramide HCl 10 mg 08/02/19 04:12 Reglan IV Q6H PRN Nausea And Vomiting Metoprolol Tartrate 50 mg 08/02/19 08:00 08/12/19 13:41 Metoprolol PO 50 mg TID [facility] Administration Metoprolol Tartrate 25 mg 08/02/19 08:00 08/12/19 13:42 Metoprolol PO 25 mg TID [facility] Administration Morphine Sulfate 2 mg 08/06/19 12:04 08/11/19 08:46 Morphine IV 2 mg Q4H PRN Administration Pain, Moderate (4-6) Nicotine 14 mg 08/02/19 10:00 08/12/19 09:57 Habitrol TD Not Given QDAY [facility] Ondansetron HCl 4 mg 08/02/19 04:12 Zofran IV Q8H PRN Nausea And Vomiting Oxycodone HCl 5 mg 08/02/19 04:18 08/09/19 23:27 Roxicodone PO 5 mg Q6H PRN Administration Pain, (7-10) Oxycodone/Acetaminophen 1 tab 08/02/19 04:09 08/10/19 11:13 Percocet 5/325 PO 1 tab Q6H PRN Administration Pain , Severe (7-10) Prednisone 20 mg 08/02/19 10:00 08/12/19 09:56 Deltasone PO 20 mg QDAY [facility] Administration Sodium Chloride 10 ml 08/02/19 04:12 08/11/19 03:43 Sodium Chloride Flush Syringe 10 Ml IV 10 ml PRN PRN Administration LINE FLUSH Sodium Chloride 10 ml 08/02/19 10:00 08/12/19 09:56 Sodium Chloride Flush Syringe 10 Ml IV 10 ml BID SOUMYA Administration
[2019-08-12] MEDS: DIGOXIN 0.25 MG TAB PO SCH (17:43)
--- NOTE | 2019-08-12 18:53 | Progress Note ---
Assessment and Plan Assessment and plan: Recurrent Pleural effusion -s/p right chest tube placed . Continue per pulmonology. Acute on Chronic systolic heart failure. Fluid/sodium restriction. Continue medical therapy for chronic systolic heart failure. Cardiology following Lasix iv Acute on Chronic renal failure. Nephrology following on lasix 80mg iv bid. will discuss if benefit from changing to bumex or considering lasix drip Left ankle ulcer with infected hardware ID recommend Ortho evaluation. Consulted- NO INTERVENTION AT THIS TIME PER ORTHO Chronic atrial fibrillation Cont. on Eliquis for oral anticoagulation as an outpatient rate controlled with metoprolol and digoxin Hx of Nonischemic cardiomyopathy EF 15-20% by echo 11/2018 Presence of the ICD recent interrogation revealed a normal functioning device hypertension. Cont current regimen Type 2 diabetes mellitus. Accuchecks and SSRI Chronic obstructive pulmonary disease. Stable MSSA left ulcer ID following On Cefazolin. GENERALIZED BODY PAIN-ADJUST PAIN MEDS, MONITOR FOR HYPOTENSION. Hospitalist Physical - Physical exam Narrative exam: VITAL SIGNS: Reviewed. GENERAL: The patient appears normally developed, otherwise chronically ill- appearing. Sitting up in bed vital signs as documented. HEAD: No signs of head trauma. EYES: Pupils are equal. Extraocular motions intact. EARS: Hearing grossly intact. MOUTH: Oropharynx is normal. NECK: No adenopathy, no JVD. CHEST: Chest with diminished r breath sounds bilaterally. Right chest tube noted. no wheezes, rales, or rhonchi. CARDIAC: Regular rate and rhythm. S1 and S2, without murmurs, gallops, or rubs. VASCULAR: +3 edema. Peripheral pulses normal and equal in all extremities. ABDOMEN: Soft, non tender and non distended. No rebound or guarding, and no masses palpated. Bowel Sounds normal. MUSCULOSKELETAL: Good range of motion of all major joints. Extremities without clubbing, cyanosis. +3 pitting edema bilaterally extending all the way to the ankle. NEUROLOGIC EXAM: Alert and oriented x 3 No focal sensory or strength deficits. Speech normal. Follows commands. PSYCHIATRIC: Mood normal. SKIN: Left ankle also noted dressing in place no obvious drainage noted. Detail exam as documented in skin assessment - Constitutional Vitals: Temp Pulse Resp BP Pulse Ox 98.3 F 63 18 118/65 100 08/12/19 12:03 08/12/19 17:43 08/12/19 12:03 08/12/19 17:43 08/12/19 10:00 General appearance: Present: no acute distress Results - Labs CBC & Chem 7: 08/11/19 05:17 08/12/19 13:08 Labs: Laboratory Last Values WBC 10.0 K/mm3 (4.5-11.0) 08/11/19 05:17 RBC 4.12 M/mm3 (3.65-5.03) 08/11/19 05:17 Hgb 11.7 gm/dl (11.8-15.2) L 08/11/19 05:17 Hct 36.6 % (35.5-45.6) 08/11/19 05:17 MCV 89 fl (84-94) 08/11/19 05:17 MCH 29 pg (28-32) 08/11/19 05:17 MCHC 32 % (32-34) 08/11/19 05:17 RDW 19.0 % (13.2-15.2) H 08/11/19 05:17 Plt Count 207 K/mm3 (140-440) 08/11/19 05:17 Lymph % (Auto) 11.7 % (13.4-35.0) L 08/11/19 05:17 [place] % (Auto) 11.7 % (0.0-7.3) H 08/11/19 05:17 Eos % (Auto) 1.2 % (0.0-4.3) 08/11/19 05:17 Baso % (Auto) 0.3 % (0.0-1.8) 08/11/19 05:17 Lymph # 1.2 K/mm3 (1.2-5.4) 08/11/19 05:17 [place] # 1.2 K/mm3 (0.0-0.8) H 08/11/19 05:17 Eos # 0.1 K/mm3 (0.0-0.4) 08/11/19 05:17 Baso # 0.0 K/mm3 (0.0-0.1) 08/11/19 05:17 Add Manual Diff Complete 08/05/19 05:16 Total Counted 100 08/05/19 05:16 Seg Neutrophils % 75.1 % (40.0-70.0) H 08/11/19 05:17 Seg Neuts % (Manual) 89.0 % (40.0-70.0) H 08/05/19 05:16 Band Neutrophils % 0 % 08/05/19 05:16 Lymphocytes % (Manual) 5.0 % (13.4-35.0) L 08/05/19 05:16 Reactive Lymphs % (Man) 0 % 08/05/19 05:16 Monocytes % (Manual) 6.0 % (0.0-7.3) 08/05/19 05:16 Eosinophils % (Manual) 0 % (0.0-4.3) 08/05/19 05:16 Basophils % (Manual) 0 % (0.0-1.8) 08/05/19 05:16 Metamyelocytes % 0 % 08/05/19 05:16 Myelocytes % 0 % 08/05/19 05:16 Promyelocytes % 0 % 08/05/19 05:16 Blast Cells % 0 % 08/05/19 05:16 Nucleated RBC % Not Reportable 08/05/19 05:16 Seg Neutrophils # 7.5 K/mm3 (1.8-7.7) 08/11/19 05:17 Seg Neutrophils # Man 8.3 K/mm3 (1.8-7.7) H 08/05/19 05:16 Band Neutrophils # 0.0 K/mm3 08/05/19 05:16 Lymphocytes # (Manual) 0.5 K/mm3 (1.2-5.4) L 08/05/19 05:16 Abs React Lymphs (Man) 0.0 K/mm3 08/05/19 05:16 Monocytes # (Manual) 0.6 K/mm3 (0.0-0.8) 08/05/19 05:16 Eosinophils # (Manual) 0.0 K/mm3 (0.0-0.4) 08/05/19 05:16 Basophils # (Manual) 0.0 K/mm3 (0.0-0.1) 08/05/19 05:16 Metamyelocytes # 0.0 K/mm3 08/05/19 05:16 Myelocytes # 0.0 K/mm3 08/05/19 05:16 Promyelocytes # 0.0 K/mm3 08/05/19 05:16 Blast Cells # 0.0 K/mm3 08/05/19 05:16 WBC Morphology Not Reportable 08/05/19 05:16 Hypersegmented Neuts Not Reportable 08/05/19 05:16 Hyposegmented Neuts Not Reportable 08/05/19 05:16 Hypogranular Neuts Not Reportable 08/05/19 05:16 Smudge Cells Not Reportable 08/05/19 05:16 Toxic Granulation Not Reportable 08/05/19 05:16 Toxic Vacuolation Not Reportable 08/05/19 05:16 Dohle Bodies Not Reportable 08/05/19 05:16 Pelger-Huet Anomaly Not Reportable 08/05/19 05:16 Cathie Rods Not Reportable 08/05/19 05:16 Platelet Estimate Consistent w auto 08/05/19 05:16 Clumped Platelets Not Reportable 08/05/19 05:16 Plt Clumps, EDTA Not Reportable 08/05/19 05:16 Large Platelets Not Reportable 08/05/19 05:16 Giant Platelets Not Reportable 08/05/19 05:16 Platelet Satelliting Not Reportable 08/05/19 05:16 Plt Morphology Comment Not Reportable 08/05/19 05:16 RBC Morphology Not Reportable 08/05/19 05:16 Dimorphic RBCs Not Reportable 08/05/19 05:16 Polychromasia Not Reportable 08/05/19 05:16 Hypochromasia Not Reportable 08/05/19 05:16 Poikilocytosis Not Reportable 08/05/19 05:16 Anisocytosis Not Reportable 08/05/19 05:16 Microcytosis Not Reportable 08/05/19 05:16 Macrocytosis Not Reportable 08/05/19 05:16 Spherocytes Not Reportable 08/05/19 05:16 Pappenheimer Bodies Not Reportable 08/05/19 05:16 Sickle Cells Not Reportable 08/05/19 05:16 Target Cells Not Reportable 08/05/19 05:16 Tear Drop Cells Not Reportable 08/05/19 05:16 Ovalocytes Not Reportable 08/05/19 05:16 Stomatocytes Rare 08/05/19 05:16 Helmet Cells Not Reportable 08/05/19 05:16 [place] Bodies Not Reportable 08/05/19 05:16 [place] Rings Not Reportable 08/05/19 05:16 [place]ram Cells Rare 08/05/19 05:16 Bite Cells Not Reportable 08/05/19 05:16 Crenated Cell Not Reportable 08/05/19 05:16 Elliptocytes Few 08/05/19 05:16 Acanthocytes (Spur) Not Reportable 08/05/19 05:16 Rouleaux Not Reportable 08/05/19 05:16 Hemoglobin C Crystals Not Reportable 08/05/19 05:16 Schistocytes Not Reportable 08/05/19 05:16 Malaria parasites Not Reportable 08/05/19 05:16 ESR 17 mm/Hr (0-20) 08/10/19 05:56 [place] Bodies Not Reportable 08/05/19 05:16 Hem Pathologist Commnt No 08/05/19 05:16 PT 13.9 Sec. (12.2-14.9) 08/01/19 18:49 INR 1.08 (0.87-1.13) 08/01/19 18:49 APTT 30.8 Sec. (24.2-36.6) 08/01/19 18:49 POC ABG pH 7.407 (7.35-7.45) 08/10/19 10:27 POC ABG pCO2 48.6 (35-45) H 08/10/19 10:27 POC ABG pO2 117 (80-105) H 08/10/19 10:27 POC ABG HCO3 30.6 (22-26 mml/L) 08/10/19 10:27 POC ABG Total CO2 32 (23-27mmol/L) 08/10/19 10:27 POC ABG O2 Sat 99 08/10/19 10:27 POC ABG Base Excess 6 ((-2) - (+3)mmol/L) 08/10/19 10:27 FiO2 33 % 08/10/19 10:27 Sodium 140 mmol/L (137-145) 08/12/19 13:08 Potassium 4.3 mmol/L (3.6-5.0) 08/12/19 13:08 Chloride 94.5 mmol/L (98-107) L 08/12/19 13:08 Carbon Dioxide 32 mmol/L (22-30) H 08/12/19 13:08 Anion Gap 18 mmol/L 08/12/19 13:08 BUN 60 mg/dL (9-20) H 08/12/19 13:08 Creatinine 1.7 mg/dL (0.8-1.5) H 08/12/19 13:08 Estimated GFR 51 ml/min 08/12/19 13:08 BUN/Creatinine Ratio 35 % 08/12/19 13:08 Glucose 140 mg/dL (75-100) H 08/12/19 13:08 POC Glucose 180 (70-105) H 08/12/19 16:50 Hemoglobin A1c 5.9 % (4-6) 08/02/19 07:49 Calcium 9.0 mg/dL (8.4-10.2) 08/12/19 13:08 Magnesium 2.10 mg/dL (1.7-2.3) 08/10/19 05:56 Total Bilirubin 0.60 mg/dL (0.1-1.2) 08/11/19 05:17 Direct Bilirubin 1.0 mg/dL (0-0.2) H 08/01/19 18:49 Indirect Bilirubin 0.8 mg/dL 08/01/19 18:49 AST 25 units/L (5-40) 08/11/19 05:17 ALT 15 units/L (7-56) 08/11/19 05:17 Alkaline Phosphatase 197 units/L (35-129) H 08/11/19 05:17 Lactate Dehydrogenase 199 units/L (91-180) H 08/03/19 17:01 Troponin T 0.054 ng/mL (0.00-0.029) H 08/02/19 00:28 C-Reactive Protein 0.40 mg/dL (0.00-1.30) 08/10/19 05:56 NT-Pro-B Natriuret Pep 36578 pg/mL (0-900) H 08/01/19 18:49 Total Protein 7.1 g/dL (6.3-8.2) 08/11/19 05:17 Albumin 3.3 g/dL (3.9-5) L 08/11/19 05:17 Albumin/Globulin Ratio 0.9 % 08/11/19 05:17 Triglycerides 69 mg/dL (2-149) 08/01/19 18:49 Cholesterol 131 mg/dL (50-199) 08/01/19 18:49 LDL Cholesterol Direct 88 mg/dL (50-130) 08/01/19 18:49 HDL Cholesterol 41 mg/dL (40-59) 08/01/19 18:49 Cholesterol/HDL Ratio 3.19 % 08/01/19 18:49 Fluid Type Pleural 08/07/19 20:20 Fluid Color Yellow 08/07/19 20:20 Fluid Appearance Cloudy 08/07/19 20:20 Fluid WBC 348 /mm3 08/07/19 20:20 Fluid RBC 669 /mm3 08/07/19 20:20 Fluid Seg Neutrophils 1.0 % 08/07/19 20:20 Fluid Lymphocytes 26.0 % 08/07/19 20:20 Fluid Reactive Lymphs 0 % 08/07/19 20:20 Fluid Monocytes 14.0 % 08/07/19 20:20 Fluid Eosinophils 59.0 % 08/07/19 20:20 Fluid Basophils 0 % 08/07/19 20:20 Digoxin 0.7 ng/mL (0.9-2.0) L 08/10/19 05:56 AFB Identification 08/07/19 20:20 Fungal Id Prelim 08/07/19 20:20 Active Medications - Current Medications Current Medications: Generic Name Dose Route Start Last Admin Trade Name Freq PRN Reason Stop Dose Admin Acetaminophen 650 mg 08/06/19 12:38 Tylenol PO Q4H PRN Pain MILD(1-3)/Fever >100.5/TRUJILLO Apixaban 5 mg 08/02/19 10:00 08/12/19 09:56 Eliquis PO 5 mg BID SOUMYA Administration Protocol Aspirin 81 mg 08/02/19 10:00 08/12/19 09:56 Baby Aspirin PO 81 mg QDAY SOUMYA Administration Atorvastatin Calcium 40 mg 08/02/19 22:00 08/11/19 21:37 Lipitor PO 40 mg QHS SOUMYA Administration Cephalexin 500 mg 08/10/19 17:00 08/12/19 13:42 Keflex PO 500 mg Q8HR SOUMYA Administration Digoxin 0.25 mg 08/04/19 17:00 08/12/19 17:43 Lanoxin PO 0.25 mg Q48H SOUMYA Administration Docusate Sodium 100 mg 08/02/19 10:00 08/12/19 09:56 Colace PO 100 mg BID SOUMYA Administration Famotidine 20 mg 08/02/19 10:00 08/12/19 09:56 Pepcid PO 20 mg BID SOUMYA Administration Furosemide 80 mg 08/09/19 18:00 08/12/19 17:43 Lasix IV 80 mg 0900,1800 [facility] Administration Hydromorphone HCl 1 mg 08/12/19 16:11 08/12/19 17:44 Dilaudid IV 1 mg Q4H PRN Administration Pain , Severe (7-10) Insulin Human Lispro 0 unit 08/02/19 07:30 08/12/19 18:00 Humalog SUB-Q 2 unit ACHS [facility] Administration Protocol Metoclopramide HCl 10 mg 08/02/19 04:12 Reglan IV Q6H PRN Nausea And Vomiting Metoprolol Tartrate 50 mg 08/02/19 08:00 08/12/19 13:41 Metoprolol PO 50 mg TID SOUMYA Administration Metoprolol Tartrate 25 mg 08/02/19 08:00 08/12/19 13:42 Metoprolol PO 25 mg TID [facility] Administration Nicotine 14 mg 08/02/19 10:00 08/12/19 09:57 Habitrol TD Not Given QDAY [facility] Ondansetron HCl 4 mg 08/02/19 04:12 Zofran IV Q8H PRN Nausea And Vomiting Oxycodone HCl 5 mg 08/02/19 04:18 08/09/19 23:27 Roxicodone PO 5 mg Q6H PRN Administration Pain, (7-10) Oxycodone/Acetaminophen 1 tab 08/02/19 04:09 08/10/19 11:13 Percocet 5/325 PO 1 tab Q6H PRN Administration Pain , Severe (7-10) Sodium Chloride 10 ml 08/02/19 04:12 08/11/19 03:43 Sodium Chloride Flush Syringe 10 Ml IV 10 ml PRN PRN Administration LINE FLUSH Sodium Chloride 10 ml 08/02/19 10:00 08/12/19 09:56 Sodium Chloride Flush Syringe 10 Ml IV 10 ml BID SOUMYA Administration Nutrition/Malnutrition Assess - Dietary Evaluation Nutrition/Malnutrition Findings: Nutrition Notes Start: 08/06/19 11:55 Freq: Status: Active Protocol: Document 08/12/19 11:25 TAYA (Rec: 08/12/19 11:44 TAYA [id number]) Nutrition Notes Initial or Follow up Brief Note Subjective/Other Information Pt has been complaing to [facility] about not recieving double portions of every tray item. RD explained to pt how double portions of CHO and protein- foods may exacerbate some of his medical conditions. Pt stated he didn't really care that much about double portions, he was just upset because he believes someone hung up the phone on him in the kitchen. Pt food preferences noted in diet order. RD observed 5 unopened Glucerna bottles in room. Pt stated he "loved them," but was saving them in case his blood sugars drop at night. Pt requested a fourth Glucerna so he can have one with each meal to aid with weight gain and one before bed just in case. Nutrition Intervention Add Supplement/Snack (indicate name/kcal Glucerna Vanilla and chocolate /protein ) QID
[2019-08-13] MEDS: HYDROmorphone 1 MG/1 ML INJ IV PRN ×3 (02:45→14:39)
[2019-08-13 05:55] LABS: Hemoglobin 11.3 gm/dl (11.8-15.2); Mean Corpuscular HGB Conc 32 % (32-34); Mean Corpuscular Volume 88 fl (84-94); Platelet Count 205 K/mm3 (140-440); Red Blood Count 3.97 M/mm3 (3.65-5.03); Red Cell Distribution Width 18.7 % (13.2-15.2)
[2019-08-13 06:01] LABS: Calcium 8.9 mg/dL (8.4-10.2)
[2019-08-13] MEDS: cephALEXin 500 MG CAP PO SCH ×3 (06:18→21:41)
[2019-08-13 07:35] LABS: Total Protein,Body Fluid 3.2 (15.0-45.0)
[2019-08-13 07:35] LABS: Amylase,Body Fluid 48
[2019-08-13] MEDS: INSULIN LISPRO 100 UNIT/ML SUB-Q SCH ×4 (08:23→21:46)
[2019-08-13] MEDS: METOPROLOL TARTRATE 50 MG TAB PO SCH ×3 (08:31→21:46)
[2019-08-13] MEDS: FUROSEMIDE 40 MG/4 ML INJ IV SCH ×2 (08:31→18:24)
[2019-08-13] MEDS: METOPROLOL TARTRATE 25 MG TAB PO SCH ×3 (08:32→21:41)
--- NOTE | 2019-08-13 08:33 | XRay Report ---
CHEST 1 VIEW 0748 hours INDICATION: right pleural effusion. COMPARISON: 08/10/2019 FINDINGS: Support devices: Stable positioning of the right chest pigtail catheter at the right lung base. Heart: Stable moderate cardiomegaly with single lead pacemaker device. Lungs/Pleura: Patchy infiltrate or atelectasis at the right lung base and small right pleural effusio n are stable. The lungs are clear otherwise. No pneumothorax. Additional findings: None. IMPRESSION: No significant interval change. Signer Name: Tenzin Vallejo Jr, MD Signed: 08/13/2019 8:29 AM Workstation Name: [id number]
[2019-08-13] MEDS: ASPIRIN 81 MG TAB CHEW PO SCH (10:07)
[2019-08-13] MEDS: FAMOTIDINE 20 MG TAB PO SCH ×2 (10:07→21:41)
[2019-08-13] MEDS: NICOTINE 14 MG/24 HR PATCH TD SCH (10:07)
[2019-08-13] MEDS: DOCUSATE SODIUM 100 MG CAP PO SCH ×2 (10:07→21:46)
[2019-08-13] MEDS: APIXABAN 5 MG TAB PO SCH ×2 (10:07→21:42)
--- NOTE | 2019-08-13 11:02 | Progress Note ---
Assessment and Plan Acute hypoxemic respiratory failure. Recurrent right pleural effusion, large. Acute CHF exacerbation (EF 15-20% by echo 11/2018) Acute on chronic kidney injury. Paroxysmal atrial fibrillation. AICD malfunction. Hypertension. Diabetes type II COPD - stopped wall suction - tentatively pull right chest tube in am after reviewing CXR - am CXR ordered - stop prednisone - continue to wean supplemental oxygen to keep O2 sats>90% - continue to optimize heart failure measures while monitoring hemodynamics and renal function - continue Bronchodilators with pulm hygiene per RT - continue anticoagulation for A-fid - continue to avoid nephrotoxins, renally dose all medications - continue mobility protocols to prevent pressure ulcers - PT/OT/Wound care - continue accuchecks with glycemic control per SSI for target blood glucose < 180mg/dL - Smoking cessation counseling done at the bedside - home oxygen evaluation at discharge - Pulmonary out patient follow up for PFTs and optimization of respiratory status - continue other care per attending / other consultants - prn analgesia per pain score ... re-evaluate in am & prn Subjective Date of service: 08/13/19 Principal diagnosis: Ac. hypoxemic Resp failure; Right pleural effusion; AE-CHF; ESTEVAN on CKD Interval history: Patient is seen today for: Ac. hypoxemic Resp failure; R. pleural effusion; AE- CHF; ESTEVAN on CKD; AICD malfunction; HTN; Diabetes type II; COPD Seen and examined at bedside; 24hour events reviewed; nursing and respiratory care staff consulted; no adverse overnight events reported to me; Objective Vital Signs - 12hr 08/12/19 08/13/19 08/13/19 23:35 00:35 01:11 Temperature Pulse Rate 88 65 Respiratory 18 18 Rate Blood Pressure 100/64 O2 Sat by Pulse 96 97 100 Oximetry 08/13/19 08/13/19 08/13/19 01:12 04:59 05:18 Temperature 98.6 F Pulse Rate 36 L 72 Respiratory 20 20 Rate Blood Pressure 95/61 102/78 O2 Sat by Pulse 94 100 Oximetry 08/13/19 08/13/19 08/13/19 05:20 08:31 08:32 Temperature 97.7 F Pulse Rate 86 86 Respiratory Rate Blood Pressure 125/89 125/89 O2 Sat by Pulse Oximetry Constitutional: no acute distress, alert, appears uncomfortable Eyes: non-icteric ENT: oropharynx moist Neck: supple, no lymphadenopathy, no JVD Effort: mildly labored Ascultation: Right: diminished breath sounds (improved breath sounds on right side) Cardiovascular: irregular rhythm, other (S1,S2) Gastrointestinal: normoactive bowel sounds, soft, non-tender Integumentary: normal, other (Wound on right lower leg.) Extremities: no cyanosis, edema (bilateral) Neurologic: normal mental status, non-focal exam, pupils equal and round, CN II- XII normal, motor strength normal and Psychiatric: mood appropriate, affect normal CBC and BMP: 08/13/19 05:05 08/13/19 05:05 ABG, PT/INR, D-dimer: ABG POC ABG pH 7.407 (7.35-7.45) 08/10/19 10:27 POC ABG pCO2 48.6 (35-45) H 08/10/19 10:27 POC ABG pO2 117 (80-105) H 08/10/19 10:27 POC ABG HCO3 30.6 (22-26 mml/L) 08/10/19 10:27 POC ABG Total CO2 32 (23-27mmol/L) 08/10/19 10:27 POC ABG O2 Sat 99 08/10/19 10:27 PT/INR, D-dimer PT 13.9 Sec. (12.2-14.9) 08/01/19 18:49 INR 1.08 (0.87-1.13) 08/01/19 18:49 Abnormal lab findings: Abnormal Labs 08/01/19 08/01/19 08/01/19 18:49 18:49 18:49 WBC Hgb 11.6 L Hct RDW 19.3 H Lymph % (Auto) 10.0 L [place] % (Auto) 9.5 H Lymph # 1.0 L [place] # 0.9 H Seg Neutrophils % 79.2 H Seg Neuts % (Manual) Lymphocytes % (Manual) Seg Neutrophils # Seg Neutrophils # Man Lymphocytes # (Manual) POC ABG pCO2 POC ABG pO2 Sodium Chloride Carbon Dioxide 21 L BUN Creatinine Glucose POC Glucose Calcium Total Bilirubin 1.80 H Direct Bilirubin 1.0 H Alkaline Phosphatase 212 H Lactate Dehydrogenase Troponin T 0.044 H NT-Pro-B Natriuret Pep 57693 H Albumin 3.4 L Fluid Glucose Fluid Total Protein Digoxin 08/01/19 08/02/1908/02/19 21:07 00:28 10:14 WBC Hgb Hct RDW Lymph % (Auto) [place] % (Auto) Lymph # [place] # Seg Neutrophils % Seg Neuts % (Manual) Lymphocytes % (Manual) Seg Neutrophils # Seg Neutrophils # Man Lymphocytes # (Manual) POC ABG pCO2 POC ABG pO2 Sodium Chloride Carbon Dioxide BUN Creatinine Glucose POC Glucose 115 H Calcium Total Bilirubin Direct Bilirubin Alkaline Phosphatase Lactate Dehydrogenase Troponin T 0.049 H 0.054 H NT-Pro-B Natriuret Pep Albumin Fluid Glucose Fluid Total Protein Digoxin 08/02/19 08/02/19 08/02/19 11:18 16:04 21:51 WBC Hgb Hct RDW Lymph % (Auto) [place] % (Auto) Lymph # [place] # Seg Neutrophils % Seg Neuts % (Manual) Lymphocytes % (Manual) Seg Neutrophils # Seg Neutrophils # Man Lymphocytes # (Manual) POC ABG pCO2 POC ABG pO2 Sodium Chloride Carbon Dioxide BUN Creatinine Glucose POC Glucose 144 H 126 H 130 H Calcium Total Bilirubin Direct Bilirubin Alkaline Phosphatase Lactate Dehydrogenase Troponin T NT-Pro-B Natriuret Pep Albumin Fluid Glucose Fluid Total Protein Digoxin 08/03/19 08/03/19 08/03/19 04:57 04:57 16:36 WBC Hgb 11.0 L Hct 34.3 L RDW 19.4 H Lymph % (Auto) 9.5 L [place] % (Auto) Lymph # 0.9 L [place] # Seg Neutrophils % 83.0 H Seg Neuts % (Manual) Lymphocytes % (Manual) Seg Neutrophils # 8.2 H Seg Neutrophils # Man Lymphocytes # (Manual) POC ABG pCO2 POC ABG pO2 Sodium Chloride Carbon Dioxide BUN 30 H Creatinine 2.1 H D Glucose 140 H POC Glucose 142 H Calcium 8.1 L Total Bilirubin Direct Bilirubin Alkaline Phosphatase 195 H Lactate Dehydrogenase Troponin T NT-Pro-B Natriuret Pep Albumin 2.9 L Fluid Glucose Fluid Total Protein Digoxin 08/03/19 08/03/19 08/04/19 17:01 21:12 11:31 WBC Hgb Hct RDW Lymph % (Auto) [place] % (Auto) Lymph # [place] # Seg Neutrophils % Seg Neuts % (Manual) Lymphocytes % (Manual) Seg Neutrophils # Seg Neutrophils # Man Lymphocytes # (Manual) POC ABG pCO2 POC ABG pO2 Sodium Chloride Carbon Dioxide BUN Creatinine Glucose POC Glucose 158 H 59 L Calcium Total Bilirubin Direct Bilirubin Alkaline Phosphatase Lactate Dehydrogenase 199 H Troponin T NT-Pro-B Natriuret Pep Albumin Fluid Glucose Fluid Total Protein Digoxin 08/04/19 08/04/19 08/05/19 16:07 21:05 05:16 WBC Hgb 10.9 L Hct 34.0 L RDW 19.4 H Lymph % (Auto) [place] % (Auto) Lymph # [place] # Seg Neutrophils % Seg Neuts % (Manual) 89.0 H Lymphocytes % (Manual) 5.0 L Seg Neutrophils # Seg Neutrophils # Man 8.3 H Lymphocytes # (Manual) 0.5 L POC ABG pCO2 POC ABG pO2 Sodium Chloride Carbon Dioxide BUN Creatinine Glucose POC Glucose 174 H 118 H Calcium Total Bilirubin Direct Bilirubin Alkaline Phosphatase Lactate Dehydrogenase Troponin T NT-Pro-B Natriuret Pep Albumin Fluid Glucose Fluid Total Protein Digoxin 08/05/19 08/05/19 08/06/19 05:16 20:35 06:07 WBC 11.9 H Hgb 11.4 L Hct 35.0 L RDW 19.3 H Lymph % (Auto) 10.3 L [place] % (Auto) 7.7 H Lymph # [place] # 0.9 H Seg Neutrophils % 81.3 H Seg Neuts % (Manual) Lymphocytes % (Manual) Seg Neutrophils # 9.7 H Seg Neutrophils # Man Lymphocytes # (Manual) POC ABG pCO2 POC ABG pO2 Sodium 136 L Chloride Carbon Dioxide BUN 38 H Creatinine 1.9 H Glucose 160 H POC Glucose 125 H Calcium Total Bilirubin Direct Bilirubin Alkaline Phosphatase Lactate Dehydrogenase Troponin T NT-Pro-B Natriuret Pep Albumin Fluid Glucose Fluid Total Protein Digoxin 08/06/19 08/06/19 08/06/19 06:07 11:44 15:40 WBC Hgb Hct RDW Lymph % (Auto) [place] % (Auto) Lymph # [place] # Seg Neutrophils % Seg Neuts % (Manual) Lymphocytes % (Manual) Seg Neutrophils # Seg Neutrophils # Man Lymphocytes # (Manual) POC ABG pCO2 POC ABG pO2 Sodium Chloride 97.5 L Carbon Dioxide BUN 41 H Creatinine 1.8 H Glucose POC Glucose 123 H 154 H Calcium Total Bilirubin Direct Bilirubin Alkaline Phosphatase Lactate Dehydrogenase Troponin T NT-Pro-B Natriuret Pep Albumin Fluid Glucose Fluid Total Protein Digoxin 08/06/19 08/07/19 08/07/19 21:22 08:56 08:56 WBC Hgb 11.6 L Hct RDW 18.8 H Lymph % (Auto) [place] % (Auto) Lymph # [place] # Seg Neutrophils % Seg Neuts % (Manual) Lymphocytes % (Manual) Seg Neutrophils # Seg Neutrophils # Man Lymphocytes # (Manual) POC ABG pCO2 POC ABG pO2 Sodium Chloride 95.0 L Carbon Dioxide BUN 42 H Creatinine 1.8 H Glucose POC Glucose 108 H Calcium Total Bilirubin Direct Bilirubin Alkaline Phosphatase Lactate Dehydrogenase Troponin T NT-Pro-B Natriuret Pep Albumin Fluid Glucose Fluid Total Protein Digoxin 08/07/19 08/07/19 08/07/19 12:39 16:31 20:20 WBC Hgb Hct RDW Lymph % (Auto) [place] % (Auto) Lymph # [place] # Seg Neutrophils % Seg Neuts % (Manual) Lymphocytes % (Manual) Seg Neutrophils # Seg Neutrophils # Man Lymphocytes # (Manual) POC ABG pCO2 POC ABG pO2 Sodium Chloride Carbon Dioxide BUN Creatinine Glucose POC Glucose 110 H 132 H Calcium Total Bilirubin Direct Bilirubin Alkaline Phosphatase Lactate Dehydrogenase Troponin T NT-Pro-B Natriuret Pep Albumin Fluid Glucose 99 H Fluid Total Protein Digoxin 08/07/19 08/08/19 08/08/19 20:50 02:12 08:27 WBC Hgb 11.6 L Hct RDW 18.9 H Lymph % (Auto) [place] % (Auto) Lymph # [place] # Seg Neutrophils % Seg Neuts % (Manual) Lymphocytes % (Manual) Seg Neutrophils # Seg Neutrophils # Man Lymphocytes # (Manual) POC ABG pCO2 POC ABG pO2 Sodium Chloride Carbon Dioxide BUN Creatinine Glucose POC Glucose 126 H Calcium Total Bilirubin Direct Bilirubin Alkaline Phosphatase Lactate Dehydrogenase Troponin T NT-Pro-B Natriuret Pep Albumin Fluid Glucose Fluid Total Protein 3.2 L Digoxin 08/08/19 08/08/19 08/08/19 08:27 16:14 21:24 WBC Hgb Hct RDW Lymph % (Auto) [place] % (Auto) Lymph # [place] # Seg Neutrophils % Seg Neuts % (Manual) Lymphocytes % (Manual) Seg Neutrophils # Seg Neutrophils # Man Lymphocytes # (Manual) POC ABG pCO2 POC ABG pO2 Sodium Chloride 95.3 L Carbon Dioxide BUN 48 H Creatinine 1.7 H Glucose POC Glucose 155 H 123 H Calcium Total Bilirubin Direct Bilirubin Alkaline Phosphatase Lactate Dehydrogenase Troponin T NT-Pro-B Natriuret Pep Albumin Fluid Glucose Fluid Total Protein Digoxin 08/09/19 08/09/19 08/09/19 11:44 11:44 13:02 WBC Hgb 11.1 L Hct 34.6 L RDW 19.0 H Lymph % (Auto) [place] % (Auto) Lymph # [place] # Seg Neutrophils % Seg Neuts % (Manual) Lymphocytes % (Manual) Seg Neutrophils # Seg Neutrophils # Man Lymphocytes # (Manual) POC ABG pCO2 POC ABG pO2 Sodium 134 L Chloride 91.2 L Carbon Dioxide BUN 51 H Creatinine 1.8 H Glucose 140 H POC Glucose 150 H Calcium Total Bilirubin Direct Bilirubin Alkaline Phosphatase Lactate Dehydrogenase Troponin T NT-Pro-B Natriuret Pep Albumin Fluid Glucose Fluid Total Protein Digoxin 08/09/19 08/09/19 08/10/19 17:25 20:49 05:56 WBC Hgb Hct RDW Lymph % (Auto) [place] % (Auto) Lymph # [place] # Seg Neutrophils % Seg Neuts % (Manual) Lymphocytes % (Manual) Seg Neutrophils # Seg Neutrophils # Man Lymphocytes # (Manual) POC ABG pCO2 POC ABG pO2 Sodium 136 L Chloride 94.1 L Carbon Dioxide BUN 50 H Creatinine 1.6 H Glucose POC Glucose 106 H 138 H Calcium Total Bilirubin Direct Bilirubin Alkaline Phosphatase Lactate Dehydrogenase Troponin T NT-Pro-B Natriuret Pep Albumin Fluid Glucose Fluid Total Protein Digoxin 08/10/19 08/10/19 08/10/19 05:56 10:27 11:54 WBC Hgb Hct RDW Lymph % (Auto) [place] % (Auto) Lymph # [place] # Seg Neutrophils % Seg Neuts % (Manual) Lymphocytes % (Manual) Seg Neutrophils # Seg Neutrophils # Man Lymphocytes # (Manual) POC ABG pCO2 48.6 H POC ABG pO2 117 H Sodium Chloride Carbon Dioxide BUN Creatinine Glucose POC Glucose 109 H Calcium Total Bilirubin Direct Bilirubin Alkaline Phosphatase Lactate Dehydrogenase Troponin T NT-Pro-B Natriuret Pep Albumin Fluid Glucose Fluid Total Protein Digoxin 0.7 L 08/10/19 08/10/19 08/11/19 15:53 20:36 05:17 WBC Hgb 11.7 L Hct RDW 19.0 H Lymph % (Auto) 11.7 L [place] % (Auto) 11.7 H Lymph # [place] # 1.2 H Seg Neutrophils % 75.1 H Seg Neuts % (Manual) Lymphocytes % (Manual) Seg Neutrophils # Seg Neutrophils # Man Lymphocytes # (Manual) POC ABG pCO2 POC ABG pO2 Sodium Chloride Carbon Dioxide BUN Creatinine Glucose POC Glucose 162 H 113 H Calcium Total Bilirubin Direct Bilirubin Alkaline Phosphatase Lactate Dehydrogenase Troponin T NT-Pro-B Natriuret Pep Albumin Fluid Glucose Fluid Total Protein Digoxin 08/11/19 08/11/19 08/11/19 05:17 11:17 16:29 WBC Hgb Hct RDW Lymph % (Auto) [place] % (Auto) Lymph # [place] # Seg Neutrophils % Seg Neuts % (Manual) Lymphocytes % (Manual) Seg Neutrophils # Seg Neutrophils # Man Lymphocytes # (Manual) POC ABG pCO2 POC ABG pO2 Sodium Chloride 93.6 L Carbon Dioxide BUN 55 H Creatinine 1.7 H Glucose POC Glucose 160 H 143 H Calcium Total Bilirubin Direct Bilirubin Alkaline Phosphatase 197 H Lactate Dehydrogenase Troponin T NT-Pro-B Natriuret Pep Albumin 3.3 L Fluid Glucose Fluid Total Protein Digoxin 08/11/19 08/12/19 08/12/19 21:23 12:10 13:08 WBC Hgb Hct RDW Lymph % (Auto) [place] % (Auto) Lymph # [place] # Seg Neutrophils % Seg Neuts % (Manual) Lymphocytes % (Manual) Seg Neutrophils # Seg Neutrophils # Man Lymphocytes # (Manual) POC ABG pCO2 POC ABG pO2 Sodium Chloride 94.5 L Carbon Dioxide 32 H BUN 60 H Creatinine 1.7 H Glucose 140 H POC Glucose 175 H 111 H Calcium Total Bilirubin Direct Bilirubin Alkaline Phosphatase Lactate Dehydrogenase Troponin T NT-Pro-B Natriuret Pep Albumin Fluid Glucose Fluid Total Protein Digoxin 08/12/19 08/12/19 08/13/19 16:50 21:25 05:05 WBC Hgb 11.3 L Hct 35.0 L RDW 18.7 H Lymph % (Auto) [place] % (Auto) Lymph # [place] # Seg Neutrophils % Seg Neuts % (Manual) Lymphocytes % (Manual) Seg Neutrophils # Seg Neutrophils # Man Lymphocytes # (Manual) POC ABG pCO2 POC ABG pO2 Sodium Chloride Carbon Dioxide BUN Creatinine Glucose POC Glucose 180 H 126 H Calcium Total Bilirubin Direct Bilirubin Alkaline Phosphatase Lactate Dehydrogenase Troponin T NT-Pro-B Natriuret Pep Albumin Fluid Glucose Fluid Total Protein Digoxin 08/13/19 08/13/19 05:05 05:27 WBC Hgb Hct RDW Lymph % (Auto) [place] % (Auto) Lymph # [place] # Seg Neutrophils % Seg Neuts % (Manual) Lymphocytes % (Manual) Seg Neutrophils # Seg Neutrophils # Man Lymphocytes # (Manual) POC ABG pCO2 POC ABG pO2 Sodium Chloride 94.9 L Carbon Dioxide 32 H BUN 63 H Creatinine 1.7 H Glucose 124 H POC Glucose 112 H Calcium Total Bilirubin Direct Bilirubin Alkaline Phosphatase Lactate Dehydrogenase Troponin T NT-Pro-B Natriuret Pep Albumin Fluid Glucose Fluid Total Protein Digoxin Allied health notes reviewed: nursing
--- NOTE | 2019-08-13 13:00 | Progress Note ---
Subjective Principal diagnosis: Ac. hypoxemic Resp failure; Right pleural effusion; AE-CHF; ESTEVAN on CKD Interval history: Patient was seen today for follow-up on multiple renal related issues Events of this hospitalization were noted Interdisciplinary notes were also reviewed Vitals intake output medications were reviewed Past medical history: Reviewed Family, social history: Reviewed Allergies: Reviewed Physical examination General: No acute distress Vitals: Reviewed HEENT: Oral mucosa moist no icterus Neck: Supple no thyromegaly nodular mass or JVD Chest: Clear to auscultation anteriorly Heart: Regular rate and rhythm S1-S2 heard no S3-S4 Abdomen: Soft nontender no suprapubic masses no organomegaly Extremity: Dry skin hronic 2-3+ edema both lower extremity Psych: No evidence of any agitation and aggression noted Derm: No petechial rash Assessment and plan: Acute kidney injury with underlying chronic kidney disease baseline creatinine is around 1.2-1.3 Wilbur heart failure separation severely depressed ejection fraction about 10% Adjust diuretics as needed strict fluid restriction Recurrent right pleural effusion Needs to follow up with pulmonary as well as cardiology Alterable risk factor for underlying chronic kidney disease as well as progression over time he'll also be prone to progression of renal failure due to cardiorenal syndrome with severely impaired ejection fraction Should also be considered for spironolactone if okay with cardiology, All renal related issues were discussed with the patient, patient does exhibit good understanding, lab results were also discussed with patient in simple [place] Prognosis: Guarded We'll continue to follow and make recommendation from renal standpoint Objective - Vital Signs Vital signs: Vital Signs - 12hr 08/13/19 08/13/19 08/13/19 01:11 01:12 04:59 Temperature 98.6 F Pulse Rate 65 36 L Respiratory 18 20 Rate Blood Pressure 100/64 95/61 O2 Sat by Pulse 100 94 Oximetry 08/13/19 08/13/19 08/13/19 05:18 05:20 08:31 Temperature 97.7 F Pulse Rate 72 86 Respiratory 20 Rate Blood Pressure 102/78 125/89 O2 Sat by Pulse 100 Oximetry 08/13/19 08:32 Temperature Pulse Rate 86 Respiratory Rate Blood Pressure 125/89 O2 Sat by Pulse Oximetry - Lab 08/15/19 06:52 08/15/19 06:52 Most recent lab results Calcium 8.9 mg/dL (8.4-10.2) 08/13/19 05:05 Magnesium 2.30 mg/dL (1.7-2.3) 08/13/19 05:05 Medications & Allergies - Medications Allergies/Adverse Reactions: Allergies Penicillins Allergy (Verified 03/05/19 22:41) Itching strawberry Allergy (Verified 03/05/19 22:41) Hives Home Medications: Home Medications Medication Instructions Recorded Confirmed Last Taken Type Colchicine 0.6 mg PO QDAY #10 capsule 07/24/19 08/02/19 Unknown Rx Docusate Sodium [Colace CAP] 100 mg PO BID capsule 07/24/19 08/02/19 Unknown Rx Nicotine [Habitrol] 14 mg TD QDAY #30 patch 07/24/19 08/02/19 Unknown Rx Oxycodone HCl/Acetaminophen 1 each PO Q6HR PRN #20 tablet 07/24/19 08/02/19 Unknown Rx [Percocet 10/325 mg] Sodium Bicarbonate 1,300 mg PO BID #90 tablet 07/24/19 08/02/19 Unknown Rx guaiFENesin ER [Mucinex ER] 600 mg PO BID #60 tablet 07/24/19 08/02/19 Unknown Rx Apixaban [Eliquis] 1 tab PO BID #60 tablet 08/15/19 Unknown Rx Aspirin [Aspirin BABY CHEW TAB] 81 mg PO QDAY #30 tab.chew 08/15/19 Unknown Rx AtorvaSTATin [Lipitor] 40 mg PO QHS #30 tablet 08/15/19 Unknown Rx Digoxin [Lanoxin] 0.25 mg PO Q48H #30 tablet 08/15/19 Unknown Rx Metoprolol [Lopressor TAB] 75 mg PO TID #90 tablet 08/15/19 Unknown Rx Spironolactone [Aldactone] 25 mg PO QDAY #30 tablet 08/15/19 Unknown Rx Spironolactone [Aldactone] 50 mg PO QDAY #30 tablet 08/15/19 Unknown Rx Active Medications: Generic Name Dose Route Start Last Admin Trade Name Freq PRN Reason Stop Dose Admin Acetaminophen 650 mg 08/06/19 12:38 Tylenol PO Q4H PRN Pain MILD(1-3)/Fever >100.5/[id number] Apixaban 5 mg 08/02/19 10:00 08/13/19 10:07 Eliquis PO 5 mg BID SOUMYA Administration Protocol Aspirin 81 mg 08/02/19 10:00 08/13/19 10:07 Baby Aspirin PO 81 mg QDAY ON LICENSE OF [facility] Administration Atorvastatin Calcium 40 mg 08/02/19 22:00 08/12/19 21:35 Lipitor PO 40 mg QHS SOUMYA Administration Cephalexin 500 mg 08/10/19 17:00 08/13/19 06:18 Keflex PO 500 mg Q8HR SOUMYA Administration Digoxin 0.25 mg 08/04/19 17:00 08/12/19 17:43 Lanoxin PO 0.25 mg Q48H SOUMYA Administration Docusate Sodium 100 mg 08/02/19 10:00 08/13/19 10:07 Colace PO 100 mg BID SOUMYA Administration Famotidine 20 mg 08/02/19 10:00 08/13/19 10:07 Pepcid PO 20 mg BID SOUMYA Administration Furosemide 80 mg 08/09/19 18:00 08/13/19 08:31 Lasix IV 80 mg 0900,1800 ON LICENSE OF [facility] Administration Hydromorphone HCl 1 mg 08/12/19 16:11 08/13/19 08:33 Dilaudid IV 1 mg Q4H PRN Administration Pain , Severe (7-10) Insulin Human Lispro 0 unit 08/02/19 07:30 08/13/19 12:07 [facility]alog SUB-Q [facility] Protocol Metoclopramide HCl 10 mg 08/02/19 04:12 Reglan IV Q6H PRN Nausea And Vomiting Metoprolol Tartrate 50 mg 08/02/19 08:00 08/13/19 08:31 Metoprolol PO 50 mg TID ON LICENSE OF [facility] Administration Metoprolol Tartrate 25 mg 08/02/19 08:00 08/13/19 08:32 Metoprolol PO 25 mg TID ON LICENSE OF [facility] Administration Nicotine 14 mg 08/02/19 10:00 08/13/19 10:07 Habitrol TD Not Given QDAY ON LICENSE OF [facility] Ondansetron HCl 4 mg 08/02/19 04:12 Zofran IV Q8H PRN Nausea And Vomiting Oxycodone HCl 5 mg 08/02/19 04:18 08/09/19 23:27 Roxicodone PO 5 mg Q6H PRN Administration Pain, (7-10) Oxycodone/Acetaminophen 1 tab 08/02/19 04:09 08/10/19 11:13 Percocet 5/325 PO 1 tab Q6H PRN Administration Pain , Severe (7-10) Sodium Chloride 10 ml 08/02/19 04:12 08/11/19 03:43 Sodium Chloride Flush Syringe 10 Ml IV 10 ml PRN PRN Administration LINE FLUSH Sodium Chloride 10 ml 08/02/19 10:00 08/13/19 10:07 Sodium Chloride Flush Syringe 10 Ml IV 10 ml BID SOUMYA Administration
--- NOTE | 2019-08-13 17:26 | Progress Note ---
Assessment and Plan Assessment and plan: Recurrent Pleural effusion -s/p right chest tube placed . Continue per pulmonology. likely to be reomved today Acute on Chronic systolic heart failure. Fluid/sodium restriction. Continue medical therapy for chronic systolic heart failure. Cardiology following Lasix iv Acute on Chronic renal failure. Nephrology following on lasix 80mg iv bid. poor prognosis. Left ankle ulcer with infected hardware ID recommend Ortho evaluation. Consulted- NO INTERVENTION AT THIS TIME PER ORTHO Chronic atrial fibrillation Cont. on Eliquis for oral anticoagulation as an outpatient rate controlled with metoprolol and digoxin Hx of Nonischemic cardiomyopathy EF 15-20% by echo 11/2018 Presence of the ICD recent interrogation revealed a normal functioning device hypertension. Cont current regimen Type 2 diabetes mellitus. Accuchecks and SSRI Chronic obstructive pulmonary disease. Stable MSSA left ulcer ID following On Cefazolin. GENERALIZED BODY PAIN-ADJUST PAIN MEDS, MONITOR FOR HYPOTENSION. Anticipate discharge in am. Discussed with pulmonary and cardiology will repeat chest xray in am to see if no reaccumlation of fluids History Interval history: Patient seen and examined, resting on a chair, per nursing staff patient was beligrant at night, demanding double portion of food. the Patient on my exam states he feels better with the pain medication and breathing is better. Hospitalist Physical - Physical exam Narrative exam: VITAL SIGNS: Reviewed. GENERAL: The patient appears normally developed, otherwise chronically ill- appearing. Sitting up in bed vital signs as documented. HEAD: No signs of head trauma. EYES: Pupils are equal. Extraocular motions intact. EARS: Hearing grossly intact. MOUTH: Oropharynx is normal. NECK: No adenopathy, no JVD. CHEST: Chest with diminished r breath sounds bilaterally. Right chest tube noted. no wheezes, rales, or rhonchi. CARDIAC: Regular rate and rhythm. S1 and S2, without murmurs, gallops, or rubs. VASCULAR: +2 edema. Peripheral pulses normal and equal in all extremities. ABDOMEN: Soft, non tender and non distended. No rebound or guarding, and no masses palpated. Bowel Sounds normal. MUSCULOSKELETAL: Good range of motion of all major joints. Extremities without clubbing, cyanosis. +2 pitting edema bilaterally extending all the way to the ankle. NEUROLOGIC EXAM: Alert and oriented x 3 No focal sensory or strength deficits. Speech normal. Follows commands. PSYCHIATRIC: Mood normal. SKIN: Left ankle also noted dressing in place no obvious drainage noted. Detail exam as documented in skin assessment - Constitutional Vitals: Temp Pulse Resp BP Pulse Ox 97.7 F 73 20 111/68 98 08/13/19 05:20 08/13/19 14:38 08/13/19 05:18 08/13/19 14:38 08/13/19 10:00 General appearance: Present: no acute distress Results - Labs CBC & Chem 7: 08/13/19 05:05 08/13/19 05:05 Labs: Laboratory Last Values WBC 10.2 K/mm3 (4.5-11.0) 08/13/19 05:05 RBC 3.97 M/mm3 (3.65-5.03) 08/13/19 05:05 Hgb 11.3 gm/dl (11.8-15.2) L 08/13/19 05:05 Hct 35.0 % (35.5-45.6) L 08/13/19 05:05 MCV 88 fl (84-94) 08/13/19 05:05 MCH 28 pg (28-32) 08/13/19 05:05 MCHC 32 % (32-34) 08/13/19 05:05 RDW 18.7 % (13.2-15.2) H 08/13/19 05:05 Plt Count 205 K/mm3 (140-440) 08/13/19 05:05 Lymph % (Auto) 11.7 % (13.4-35.0) L 08/11/19 05:17 Emmet % (Auto) 11.7 % (0.0-7.3) H 08/11/19 05:17 Eos % (Auto) 1.2 % (0.0-4.3) 08/11/19 05:17 Baso % (Auto) 0.3 % (0.0-1.8) 08/11/19 05:17 Lymph # 1.2 K/mm3 (1.2-5.4) 08/11/19 05:17 Emmet # 1.2 K/mm3 (0.0-0.8) H 08/11/19 05:17 Eos # 0.1 K/mm3 (0.0-0.4) 08/11/19 05:17 Baso # 0.0 K/mm3 (0.0-0.1) 08/11/19 05:17 Add Manual Diff Complete 08/05/19 05:16 Total Counted 100 08/05/19 05:16 Seg Neutrophils % 75.1 % (40.0-70.0) H 08/11/19 05:17 Seg Neuts % (Manual) 89.0 % (40.0-70.0) H 08/05/19 05:16 Band Neutrophils % 0 % 08/05/19 05:16 Lymphocytes % (Manual) 5.0 % (13.4-35.0) L 08/05/19 05:16 Reactive Lymphs % (Man) 0 % 08/05/19 05:16 Monocytes % (Manual) 6.0 % (0.0-7.3) 08/05/19 05:16 Eosinophils % (Manual) 0 % (0.0-4.3) 08/05/19 05:16 Basophils % (Manual) 0 % (0.0-1.8) 08/05/19 05:16 Metamyelocytes % 0 % 08/05/19 05:16 Myelocytes % 0 % 08/05/19 05:16 Promyelocytes % 0 % 08/05/19 05:16 Blast Cells % 0 % 08/05/19 05:16 Nucleated RBC % Not Reportable 08/05/19 05:16 Seg Neutrophils # 7.5 K/mm3 (1.8-7.7) 08/11/19 05:17 Seg Neutrophils # Man 8.3 K/mm3 (1.8-7.7) H 08/05/19 05:16 Band Neutrophils # 0.0 K/mm3 08/05/19 05:16 Lymphocytes # (Manual) 0.5 K/mm3 (1.2-5.4) L 08/05/19 05:16 Abs React Lymphs (Man) 0.0 K/mm3 08/05/19 05:16 Monocytes # (Manual) 0.6 K/mm3 (0.0-0.8) 08/05/19 05:16 Eosinophils # (Manual) 0.0 K/mm3 (0.0-0.4) 08/05/19 05:16 Basophils # (Manual) 0.0 K/mm3 (0.0-0.1) 08/05/19 05:16 Metamyelocytes # 0.0 K/mm3 08/05/19 05:16 Myelocytes # 0.0 K/mm3 08/05/19 05:16 Promyelocytes # 0.0 K/mm3 08/05/19 05:16 Blast Cells # 0.0 K/mm3 08/05/19 05:16 WBC Morphology Not Reportable 08/05/19 05:16 Hypersegmented Neuts Not Reportable 08/05/19 05:16 Hyposegmented Neuts Not Reportable 08/05/19 05:16 Hypogranular Neuts Not Reportable 08/05/19 05:16 Smudge Cells Not Reportable 08/05/19 05:16 Toxic Granulation Not Reportable 08/05/19 05:16 Toxic Vacuolation Not Reportable 08/05/19 05:16 Dohle Bodies Not Reportable 08/05/19 05:16 Pelger-Huet Anomaly Not Reportable 08/05/19 05:16 Cathie Rods Not Reportable 08/05/19 05:16 Platelet Estimate Consistent w auto 08/05/19 05:16 Clumped Platelets Not Reportable 08/05/19 05:16 Plt Clumps, EDTA Not Reportable 08/05/19 05:16 Large Platelets Not Reportable 08/05/19 05:16 Giant Platelets Not Reportable 08/05/19 05:16 Platelet Satelliting Not Reportable 08/05/19 05:16 Plt Morphology Comment Not Reportable 08/05/19 05:16 RBC Morphology Not Reportable 08/05/19 05:16 Dimorphic RBCs Not Reportable 08/05/19 05:16 Polychromasia Not Reportable 08/05/19 05:16 Hypochromasia Not Reportable 08/05/19 05:16 Poikilocytosis Not Reportable 08/05/19 05:16 Anisocytosis Not Reportable 08/05/19 05:16 Microcytosis Not Reportable 08/05/19 05:16 Macrocytosis Not Reportable 08/05/19 05:16 Spherocytes Not Reportable 08/05/19 05:16 Pappenheimer Bodies Not Reportable 08/05/19 05:16 Sickle Cells Not Reportable 08/05/19 05:16 Target Cells Not Reportable 08/05/19 05:16 Tear Drop Cells Not Reportable 08/05/19 05:16 Ovalocytes Not Reportable 08/05/19 05:16 Stomatocytes Rare 08/05/19 05:16 Helmet Cells Not Reportable 08/05/19 05:16 [place] Bodies Not Reportable 08/05/19 05:16 [place] Rings Not Reportable 08/05/19 05:16 Shahram Cells Rare 08/05/19 05:16 Bite Cells Not Reportable 08/05/19 05:16 Crenated Cell Not Reportable 08/05/19 05:16 Elliptocytes Few 08/05/19 05:16 Acanthocytes (Spur) Not Reportable 08/05/19 05:16 Rouleaux Not Reportable 08/05/19 05:16 Hemoglobin C Crystals Not Reportable 08/05/19 05:16 Schistocytes Not Reportable 08/05/19 05:16 Malaria parasites Not Reportable 08/05/19 05:16 ESR 17 mm/Hr (0-20) 08/10/19 05:56 [place] Bodies Not Reportable 08/05/19 05:16 Hem Pathologist Commnt No 08/05/19 05:16 PT 13.9 Sec. (12.2-14.9) 08/01/19 18:49 INR 1.08 (0.87-1.13) 08/01/19 18:49 APTT 30.8 Sec. (24.2-36.6) 08/01/19 18:49 POC ABG pH 7.407 (7.35-7.45) 08/10/19 10:27 POC ABG pCO2 48.6 (35-45) H 08/10/19 10:27 POC ABG pO2 117 (80-105) H 08/10/19 10:27 POC ABG HCO3 30.6 (22-26 mml/L) 08/10/19 10:27 POC ABG Total CO2 32 (23-27mmol/L) 08/10/19 10:27 POC ABG O2 Sat 99 08/10/19 10:27 POC ABG Base Excess 6 ((-2) - (+3)mmol/L) 08/10/19 10:27 FiO2 33 % 08/10/19 10:27 Sodium 139 mmol/L (137-145) 08/13/19 05:05 Potassium 4.4 mmol/L (3.6-5.0) 08/13/19 05:05 Chloride 94.9 mmol/L (98-107) L 08/13/19 05:05 Carbon Dioxide 32 mmol/L (22-30) H 08/13/19 05:05 Anion Gap 17 mmol/L 08/13/19 05:05 BUN 63 mg/dL (9-20) H 08/13/19 05:05 Creatinine 1.7 mg/dL (0.8-1.5) H 08/13/19 05:05 Estimated GFR 51 ml/min 08/13/19 05:05 BUN/Creatinine Ratio 37 % 08/13/19 05:05 Glucose 124 mg/dL (75-100) H 08/13/19 05:05 POC Glucose 92 (70-105) 08/13/19 17:00 Hemoglobin A1c 5.9 % (4-6) 08/02/19 07:49 Calcium 8.9 mg/dL (8.4-10.2) 08/13/19 05:05 Magnesium 2.30 mg/dL (1.7-2.3) 08/13/19 05:05 Total Bilirubin 0.60 mg/dL (0.1-1.2) 08/11/19 05:17 Direct Bilirubin 1.0 mg/dL (0-0.2) H 08/01/19 18:49 Indirect Bilirubin 0.8 mg/dL 08/01/19 18:49 AST 25 units/L (5-40) 08/11/19 05:17 ALT 15 units/L (7-56) 08/11/19 05:17 Alkaline Phosphatase 197 units/L (35-129) H 08/11/19 05:17 Lactate Dehydrogenase 199 units/L (91-180) H 08/03/19 17:01 Troponin T 0.054 ng/mL (0.00-0.029) H 08/02/19 00:28 C-Reactive Protein 0.40 mg/dL (0.00-1.30) 08/10/19 05:56 NT-Pro-B Natriuret Pep 71012 pg/mL (0-900) H 08/01/19 18:49 Total Protein 7.1 g/dL (6.3-8.2) 08/11/19 05:17 Albumin 3.3 g/dL (3.9-5) L 08/11/19 05:17 Albumin/Globulin Ratio 0.9 % 08/11/19 05:17 Triglycerides 69 mg/dL (2-149) 08/01/19 18:49 Cholesterol 131 mg/dL (50-199) 08/01/19 18:49 LDL Cholesterol Direct 88 mg/dL (50-130) 08/01/19 18:49 HDL Cholesterol 41 mg/dL (40-59) 08/01/19 18:49 Cholesterol/HDL Ratio 3.19 % 08/01/19 18:49 Fluid Type Pleural 08/07/19 20:20 Fluid Color Yellow 08/07/19 20:20 Fluid Appearance Cloudy 08/07/19 20:20 Fluid WBC 348 /mm3 08/07/19 20:20 Fluid RBC 669 /mm3 08/07/19 20:20 Fluid Seg Neutrophils 1.0 % 08/07/19 20:20 Fluid Lymphocytes 26.0 % 08/07/19 20:20 Fluid Reactive Lymphs 0 % 08/07/19 20:20 Fluid Monocytes 14.0 % 08/07/19 20:20 Fluid Eosinophils 59.0 % 08/07/19 20:20 Fluid Basophils 0 % 08/07/19 20:20 Fluid Glucose 99 mg/dL (40-70) H 08/07/19 20:20 Fluid Total Protein 3.2 (15.0-45.0) L 08/08/19 02:12 Fluid LDH 256 08/08/19 02:12 Fluid Amylase 48 08/07/19 20:20 Digoxin 0.7 ng/mL (0.9-2.0) L 08/10/19 05:56 AFB Identification 08/07/19 20:20 Fungal Id Prelim 08/07/19 20:20 Active Medications - Current Medications Current Medications: Generic Name Dose Route Start Last Admin Trade Name Freq PRN Reason Stop Dose Admin Acetaminophen 650 mg 08/06/19 12:38 Tylenol PO Q4H PRN Pain MILD(1-3)/Fever >100.5/TRUJILLO Apixaban 5 mg 08/02/19 10:00 08/13/19 10:07 Eliquis PO 5 mg BID SOUMYA Administration Protocol Aspirin 81 mg 08/02/19 10:00 08/13/19 10:07 Baby Aspirin PO 81 mg QDAY SOUMYA Administration Atorvastatin Calcium 40 mg 08/02/19 22:00 08/12/19 21:35 Lipitor PO 40 mg QHS [facility] Administration Cephalexin 500 mg 08/10/19 17:00 08/13/19 14:38 Keflex PO 500 mg Q8HR [facility] Administration Digoxin 0.25 mg 08/04/19 17:00 08/12/19 17:43 Lanoxin PO 0.25 mg Q48H [facility] Administration Docusate Sodium 100 mg 08/02/19 10:00 08/13/19 10:07 Colace PO 100 mg BID [facility] Administration Famotidine 20 mg 08/02/19 10:00 08/13/19 10:07 Pepcid PO 20 mg BID [facility] Administration Furosemide 80 mg 08/09/19 18:00 08/13/19 08:31 Lasix IV 80 mg 0900,1800 [facility] Administration Hydromorphone HCl 1 mg 08/12/19 16:11 08/13/19 14:39 Dilaudid IV 1 mg Q4H PRN Administration Pain , Severe (7-10) Insulin Human Lispro 0 unit 08/02/19 07:30 08/13/19 17:14 Humalog SUB-Q Not Given [facility] Protocol Metoclopramide HCl 10 mg 08/02/19 04:12 Reglan IV Q6H PRN Nausea And Vomiting Metoprolol Tartrate 50 mg 08/02/19 08:00 08/13/19 14:38 Metoprolol PO 50 mg TID [facility] Administration Metoprolol Tartrate 25 mg 08/02/19 08:00 08/13/19 14:38 Metoprolol PO 25 mg TID [facility] Administration Nicotine 14 mg 08/02/19 10:00 08/13/19 10:07 Habitrol TD Not Given QDAY [facility] Ondansetron HCl 4 mg 08/02/19 04:12 Zofran IV Q8H PRN Nausea And Vomiting Oxycodone HCl 5 mg 08/02/19 04:18 08/09/19 23:27 Roxicodone PO 5 mg Q6H PRN Administration Pain, (7-10) Oxycodone/Acetaminophen 1 tab 08/02/19 04:09 08/10/19 11:13 Percocet 5/325 PO 1 tab Q6H PRN Administration Pain , Severe (7-10) Sodium Chloride 10 ml 08/02/19 04:12 08/11/19 03:43 Sodium Chloride Flush Syringe 10 Ml IV 10 ml PRN PRN Administration LINE FLUSH Sodium Chloride 10 ml 08/02/19 10:00 08/13/19 10:07 Sodium Chloride Flush Syringe 10 Ml IV 10 ml BID SOUMYA Administration Nutrition/Malnutrition Assess - Dietary Evaluation Nutrition/Malnutrition Findings: Nutrition Notes Start: 08/06/19 11:55 Freq: Status: Active Protocol: Document 08/12/19 11:25 (Rec: 08/12/19 11:44 [id number]) Nutrition Notes Initial or Follow up Brief Note Subjective/Other Information Pt has been complaing to [facility] about not recieving double portions of every tray item. RD explained to pt how double portions of CHO and protein- foods may exacerbate some of his medical conditions. Pt stated he didn't really care that much about double portions, he was just upset because he believes someone hung up the phone on him in the kitchen. Pt food preferences noted in diet order. RD observed 5 unopened Glucerna bottles in room. Pt stated he "loved them," but was saving them in case his blood sugars drop at night. Pt requested a fourth Glucerna so he can have one with each meal to aid with weight gain and one before bed just in case. Nutrition Intervention Add Supplement/Snack (indicate name/kcal Glucerna Vanilla and chocolate /protein ) QID
--- NOTE | 2019-08-13 17:59 | Procedure Note ---
Date of procedure: 08/13/19 Pre-op diagnosis: CHF Post-op diagnosis: same Procedure: Chest tube removal Anesthesia: none Surgeon: LIZBETH SABA Estimated blood loss: none Pathology: none Condition: stable Disposition: floor
[2019-08-13] MEDS: oxyCODONE 5 MG TAB PO PRN (18:24)
--- NOTE | 2019-08-13 20:38 | XRay Report ---
CHEST 1 VIEW INDICATION / CLINICAL INFORMATION: s/p chest tube removal. COMPARISON: 08/13/2019 at 0748 hours FINDINGS: SUPPORT DEVICES: Interval removal of right chest tube. HEART / MEDIASTINUM: Cardiac silhouette remains mildly enlarged. LUNGS / PLEURA: Previously noted small right pleural effusion persists, but does appear to be improvi ng. A very small right basilar pneumothorax is present. Retrospectively this pneumothorax was present on the earlier chest radiographs but now is better visualized. Right basilar pleural-parenchymal disease again noted. Left lung remains grossly clear. IMPRESSION: 1. Very small right basilar pneumothorax. Retrospectively, this was present on earlier chest radiogra phs. There has not been significant change since chest radiograph earlier today. Signer Name: Brigid Millan MD Signed: 08/13/2019 8:34 PM Workstation Name: [id number]
[2019-08-14] MEDS: oxyCODONE 5 MG TAB PO PRN ×2 (05:14→13:17)
[2019-08-14] MEDS: oxyCODONE /ACETAMINOPHEN 5-325MG TAB PO PRN ×2 (05:14→13:19)
[2019-08-14] MEDS: cephALEXin 500 MG CAP PO SCH ×3 (05:15→22:45)
[2019-08-14 05:28] LABS: Hematocrit 34.2 % (35.5-45.6); Hemoglobin 11.2 gm/dl (11.8-15.2); Mean Corpuscular HGB Conc 33 % (32-34); Mean Corpuscular Volume 87 fl (84-94); Platelet Count 181 K/mm3 (140-440); Red Blood Count 3.93 M/mm3 (3.65-5.03); Red Cell Distribution Width 18.9 % (13.2-15.2)
[2019-08-14 05:37] LABS: Calcium 8.8 mg/dL (8.4-10.2)
[2019-08-14] MEDS: INSULIN LISPRO 100 UNIT/ML SUB-Q SCH ×4 (08:00→22:53)
[2019-08-14] MEDS: METOPROLOL TARTRATE 50 MG TAB PO SCH ×3 (08:20→20:53)
[2019-08-14] MEDS: APIXABAN 5 MG TAB PO SCH ×2 (09:51→22:44)
[2019-08-14] MEDS: ASPIRIN 81 MG TAB CHEW PO SCH (09:51)
[2019-08-14] MEDS: DOCUSATE SODIUM 100 MG CAP PO SCH ×2 (09:51→22:44)
[2019-08-14] MEDS: NICOTINE 14 MG/24 HR PATCH TD SCH (09:51)
[2019-08-14] MEDS: FAMOTIDINE 20 MG TAB PO SCH ×2 (09:51→22:44)
--- NOTE | 2019-08-14 09:52 | Progress Note ---
Assessment and Plan 1. Chronic combined systolic and diastolic heart failure 2. Dilated cardiomyopathy 3. Chronic obstructive pulmonary disease 4. Essential hypertension 5. Type 2 diabetes mellitus 6. Chronic atrial fibrillation 7. Left lower extremity ulcer probably secondary to venostasis. Plan. Patient still has significant bilateral pedal edema. Will continue present medication however we will start IV Dobutrex Subjective Date of service: 08/14/19 Principal diagnosis: Ac. hypoxemic Resp failure; Right pleural effusion; AE-CHF; ESTEVAN on CKD Interval history: Shortness of breath and fatigue. Pedal edema not resolving Objective Vital Signs Temp Pulse Resp BP Pulse Ox 08/14/19 08:26 98.3 F 78 18 124/86 96 08/14/19 05:14 20 08/14/19 04:51 98.3 F 67 18 104/61 98 08/13/19 23:41 98.4 F 78 18 102/55 98 08/13/19 22:46 97 08/13/19 22:00 77 08/13/19 21:46 75 111/62 08/13/19 21:41 75 111/62 08/13/19 21:38 98.6 F 85 20 111/62 98 08/13/19 19:37 98.1 F 63 18 103/74 94 08/13/19 19:23 71 117/73 97 08/13/19 17:00 67 08/13/19 16:53 66 112/67 96 08/13/19 15:35 73 109/68 96 08/13/19 14:38 73 111/68 08/13/19 12:14 87 104/59 96 08/13/19 12:04 97.9 F 63 18 110/88 97 08/13/19 12:00 68 08/13/19 10:00 76 98 - Physical Examination General: No Apparent Distress HEENT: Positive: PERRL Neck: Positive: trachea midline Cardiac: Positive: Reg Rate and Rhythm, irregularly irregular, S1/S2, S3, PMI, Laterally Displaced Lungs: Positive: clear to auscultation, Decreased Breath Sounds. Negative: Rales, Wheezes, Rhonchi Neuro: Positive: Grossly Intact Extremities: Present: edema, +3 Edema, Other (LLE ulcer) - Labs and Meds CBC 08/14/19 Range/Units 04:41 WBC 9.9 (4.5-11.0) K/mm3 RBC 3.93 (3.65-5.03) M/mm3 Hgb 11.2 L (11.8-15.2) gm/dl Hct 34.2 L (35.5-45.6) % Plt Count 181 (140-440) K/mm3 Comprehensive Metabolic Panel 08/14/19 Range/Units 04:41 Sodium 138 (137-145) mmol/L Potassium 5.3 H D (3.6-5.0) mmol/L Chloride 95.2 L (98-107) mmol/L Carbon Dioxide 25 D (22-30) mmol/L BUN 62 H (9-20) mg/dL Creatinine 1.7 H (0.8-1.5) mg/dL Glucose 89 (75-100) mg/dL Calcium 8.8 (8.4-10.2) mg/dL - Allied health notes Allied health notes reviewed: nursing
[2019-08-14] MEDS: METOPROLOL TARTRATE 25 MG TAB PO SCH ×3 (09:54→20:53)
[2019-08-14] MEDS: FUROSEMIDE 40 MG/4 ML INJ IV SCH ×2 (09:54→18:07)
--- NOTE | 2019-08-14 10:45 | XRay Report ---
CHEST 1 VIEW INDICATION / CLINICAL INFORMATION: pleural effusion. COMPARISON: 08/13/2019 FINDINGS: SUPPORT DEVICES: None. HEART / MEDIASTINUM: Enlarged but stable. LUNGS / PLEURA: Right basilar pleural-parenchymal disease is grossly stable. Left lung remains clear. Small right basilar pneumothorax is stable compared to yesterday's chest radiograph. ADDITIONAL FINDINGS: No significant additional findings. IMPRESSION: 1. Stable right basilar pleural-parenchymal disease. Stable very small right basilar pneumothorax. Signer Name: Brigid Millan MD Signed: 08/14/2019 10:41 AM Workstation Name: [id number]
--- NOTE | 2019-08-14 11:24 | Progress Note ---
Assessment and Plan Acute hypoxic respiratory failure Recurrent Pleural effusion -s/p thoracentesis 08/02/19 Tobacco use disorder with nicotine dependence COPD , no documented PFTs/FEV1 Chronic systolic heart failure Acute on Chronic renal failure. LLE ulcer Chronic atrial fibrillation Hx of Nonischemic cardiomyopathy s/p ICD-EF 15-20% by echo 11/2018 Hypertension Type 2 diabetes mellitus Continue all current care as documented below Monitor chest tube output, place to water seal Follow up CXR in the morning -Wean supplemental oxygen to keep O2 sats>90% -Optimize heart failure measures while monitoring hemodynamics and renal function -Bronchodilators, monitor for tachycardia -Anticoagulation -Avoid nephrotoxins, renally dose all medications -Quick steroid taper in view of heart failure -ABG prn -Mobility to prevent pressure ulcers -PT/OT/Wound care -Accuchecks with glycemic control. Keep glucose 140-180mg/dL to optimize wound healing -Smoking cessation counseling done at the bedside fro >7 minutes. -Will need home oxygen evaluation on discharge -Pulmonary out patient follow up for PFTs and optimization of respiratory status Subjective Date of service: 08/14/19 Principal diagnosis: Ac. hypoxemic Resp failure; Right pleural effusion; AE-CHF; ESETVAN on CKD Interval history: Follow up for Dyspnea, acute hypoxic respiratory failure: Recurrent right pleural effusion: Tobacco use with nicotine dependence Seen and examined. Vitals, labs, medications, chart and imaging reviewed. s/p right chest tube placement. Chest tube about about 250ml since this morning States he is feeling better, denies any chest pain, no cough, no nausea or vomiting Objective Vital Signs - 12hr 08/13/19 08/14/19 08/14/19 23:41 04:51 05:14 Temperature 98.4 F 98.3 F Pulse Rate 78 67 Respiratory 18 18 20 Rate Blood Pressure 102/55 104/61 O2 Sat by Pulse 98 98 Oximetry 08/14/19 08/14/19 08/14/19 08:20 08:26 09:54 Temperature 98.3 F Pulse Rate 75 78 80 Respiratory 18 Rate Blood Pressure 121/61 124/86 121/71 O2 Sat by Pulse 96 Oximetry Constitutional: no acute distress, alert, appears uncomfortable Eyes: non-icteric ENT: oropharynx moist Neck: supple, no lymphadenopathy, no JVD Effort: mildly labored Ascultation: Right: diminished breath sounds (improved breath sounds on right side) Cardiovascular: irregular rhythm, other (S1,S2) Gastrointestinal: normoactive bowel sounds, soft, non-tender Integumentary: normal, other (Wound on right lower leg.) Extremities: no cyanosis, edema (bilateral) Neurologic: normal mental status, non-focal exam, pupils equal and round, CN II- XII normal, motor strength normal and Psychiatric: mood appropriate, affect normal CBC and BMP: 08/14/19 04:41 08/14/19 04:41 ABG, PT/INR, D-dimer: ABG POC ABG pH 7.407 (7.35-7.45) 08/10/19 10:27 POC ABG pCO2 48.6 (35-45) H 08/10/19 10:27 POC ABG pO2 117 (80-105) H 08/10/19 10:27 POC ABG HCO3 30.6 (22-26 mml/L) 08/10/19 10:27 POC ABG Total CO2 32 (23-27mmol/L) 08/10/19 10:27 POC ABG O2 Sat 99 08/10/19 10:27 PT/INR, D-dimer PT 13.9 Sec. (12.2-14.9) 08/01/19 18:49 INR 1.08 (0.87-1.13) 08/01/19 18:49 Abnormal lab findings: Abnormal Labs 08/01/19 08/01/19 08/01/19 18:49 18:49 18:49 WBC Hgb 11.6 L Hct RDW 19.3 H Lymph % (Auto) 10.0 L [place] % (Auto) 9.5 H Lymph # 1.0 L [place] # 0.9 H Seg Neutrophils % 79.2 H Seg Neuts % (Manual) Lymphocytes % (Manual) Seg Neutrophils # Seg Neutrophils # Man Lymphocytes # (Manual) POC ABG pCO2 POC ABG pO2 Sodium Potassium Chloride Carbon Dioxide 21 L BUN Creatinine Glucose POC Glucose Calcium Total Bilirubin 1.80 H Direct Bilirubin 1.0 H Alkaline Phosphatase 212 H Lactate Dehydrogenase Troponin T 0.044 H NT-Pro-B Natriuret Pep 95193 H Albumin 3.4 L Fluid Glucose Fluid Total Protein Digoxin 08/01/19 08/02/19 08/02/19 21:07 00:28 10:14 WBC Hgb Hct RDW Lymph % (Auto) [place] % (Auto) Lymph # [place] # Seg Neutrophils % Seg Neuts % (Manual) Lymphocytes % (Manual) Seg Neutrophils # Seg Neutrophils # Man Lymphocytes # (Manual) POC ABG pCO2 POC ABG pO2 Sodium Potassium Chloride Carbon Dioxide BUN Creatinine Glucose POC Glucose 115 H Calcium Total Bilirubin Direct Bilirubin Alkaline Phosphatase Lactate Dehydrogenase Troponin T 0.049 H 0.054 H NT-Pro-B Natriuret Pep Albumin Fluid Glucose Fluid Total Protein Digoxin 08/02/19 08/02/19 08/02/19 11:18 16:04 21:51 WBC Hgb Hct RDW Lymph % (Auto) [place] % (Auto) Lymph # [place] # Seg Neutrophils % Seg Neuts % (Manual) Lymphocytes % (Manual) Seg Neutrophils # Seg Neutrophils # Man Lymphocytes # (Manual) POC ABG pCO2 POC ABG pO2 Sodium Potassium Chloride Carbon Dioxide BUN Creatinine Glucose POC Glucose 144 H 126 H 130 H Calcium Total Bilirubin Direct Bilirubin Alkaline Phosphatase Lactate Dehydrogenase Troponin T NT-Pro-B Natriuret Pep Albumin Fluid Glucose Fluid Total Protein Digoxin 08/03/19 08/03/19 08/03/19 04:57 04:57 16:36 WBC Hgb 11.0 L Hct 34.3 L RDW 19.4 H Lymph % (Auto) 9.5 L [place] % (Auto) Lymph # 0.9 L [place] # Seg Neutrophils % 83.0 H Seg Neuts % (Manual) Lymphocytes % (Manual) Seg Neutrophils # 8.2 H Seg Neutrophils # Man Lymphocytes # (Manual) POC ABG pCO2 POC ABG pO2 Sodium Potassium Chloride Carbon Dioxide BUN 30 H Creatinine 2.1 H D Glucose 140 H POC Glucose 142 H Calcium 8.1 L Total Bilirubin Direct Bilirubin Alkaline Phosphatase 195 H Lactate Dehydrogenase Troponin T NT-Pro-B Natriuret Pep Albumin 2.9 L Fluid Glucose Fluid Total Protein Digoxin 08/03/19 08/03/19 08/04/19 17:01 21:12 11:31 WBC Hgb Hct RDW Lymph % (Auto) [place] % (Auto) Lymph # [place] # Seg Neutrophils % Seg Neuts % (Manual) Lymphocytes % (Manual) Seg Neutrophils # Seg Neutrophils # Man Lymphocytes # (Manual) POC ABG pCO2 POC ABG pO2 Sodium Potassium Chloride Carbon Dioxide BUN Creatinine Glucose POC Glucose 158 H 59 L Calcium Total Bilirubin Direct Bilirubin Alkaline Phosphatase Lactate Dehydrogenase 199 H Troponin T NT-Pro-B Natriuret Pep Albumin Fluid Glucose Fluid Total Protein Digoxin 08/04/19 08/04/19 08/05/19 16:07 21:05 05:16 WBC Hgb 10.9 L Hct 34.0 L RDW 19.4 H Lymph % (Auto) [place] % (Auto) Lymph # [place] # Seg Neutrophils % Seg Neuts % (Manual) 89.0 H Lymphocytes % (Manual) 5.0 L Seg Neutrophils # Seg Neutrophils # Man 8.3 H Lymphocytes # (Manual) 0.5 L POC ABG pCO2 POC ABG pO2 Sodium Potassium Chloride Carbon Dioxide BUN Creatinine Glucose POC Glucose 174 H 118 H Calcium Total Bilirubin Direct Bilirubin Alkaline Phosphatase Lactate Dehydrogenase Troponin T NT-Pro-B Natriuret Pep Albumin Fluid Glucose Fluid Total Protein Digoxin 08/05/19 08/05/19 08/06/19 05:16 20:35 06:07 WBC 11.9 H Hgb 11.4 L Hct 35.0 L RDW 19.3 H Lymph % (Auto) 10.3 L [place] % (Auto) 7.7 H Lymph # [place] # 0.9 H Seg Neutrophils % 81.3 H Seg Neuts % (Manual) Lymphocytes % (Manual) Seg Neutrophils # 9.7 H Seg Neutrophils # Man Lymphocytes # (Manual) POC ABG pCO2 POC ABG pO2 Sodium 136 L Potassium Chloride Carbon Dioxide BUN 38 H Creatinine 1.9 H Glucose 160 H POC Glucose 125 H Calcium Total Bilirubin Direct Bilirubin Alkaline Phosphatase Lactate Dehydrogenase Troponin T NT-Pro-B Natriuret Pep Albumin Fluid Glucose Fluid Total Protein Digoxin 08/06/19 08/06/19 08/06/19 06:07 11:44 15:40 WBC Hgb Hct RDW Lymph % (Auto) [place] % (Auto) Lymph # [place] # Seg Neutrophils % Seg Neuts % (Manual) Lymphocytes % (Manual) Seg Neutrophils # Seg Neutrophils # Man Lymphocytes # (Manual) POC ABG pCO2 POC ABG pO2 Sodium Potassium Chloride 97.5 L Carbon Dioxide BUN 41 H Creatinine 1.8 H Glucose POC Glucose 123 H 154 H Calcium Total Bilirubin Direct Bilirubin Alkaline Phosphatase Lactate Dehydrogenase Troponin T NT-Pro-B Natriuret Pep Albumin Fluid Glucose Fluid Total Protein Digoxin 08/06/19 08/07/19 08/07/19 21:22 08:56 08:56 WBC Hgb 11.6 L Hct RDW 18.8 H Lymph % (Auto) [place] % (Auto) Lymph # [place] # Seg Neutrophils % Seg Neuts % (Manual) Lymphocytes % (Manual) Seg Neutrophils # Seg Neutrophils # Man Lymphocytes # (Manual) POC ABG pCO2 POC ABG pO2 Sodium Potassium Chloride 95.0 L Carbon Dioxide BUN 42 H Creatinine 1.8 H Glucose POC Glucose 108 H Calcium Total Bilirubin Direct Bilirubin Alkaline Phosphatase Lactate Dehydrogenase Troponin T NT-Pro-B Natriuret Pep Albumin Fluid Glucose Fluid Total Protein Digoxin 08/07/19 08/07/19 08/07/19 12:39 16:31 20:20 WBC Hgb Hct RDW Lymph % (Auto) [place] % (Auto) Lymph # [place] # Seg Neutrophils % Seg Neuts % (Manual) Lymphocytes % (Manual) Seg Neutrophils # Seg Neutrophils # Man Lymphocytes # (Manual) POC ABG pCO2 POC ABG pO2 Sodium Potassium Chloride Carbon Dioxide BUN Creatinine Glucose POC Glucose 110 H 132 H Calcium Total Bilirubin Direct Bilirubin Alkaline Phosphatase Lactate Dehydrogenase Troponin T NT-Pro-B Natriuret Pep Albumin Fluid Glucose 99 H Fluid Total Protein Digoxin 08/07/19 08/08/19 08/08/19 20:50 02:12 08:27 WBC Hgb 11.6 L Hct RDW 18.9 H Lymph % (Auto) [place] % (Auto) Lymph # [place] # Seg Neutrophils % Seg Neuts % (Manual) Lymphocytes % (Manual) Seg Neutrophils # Seg Neutrophils # Man Lymphocytes # (Manual) POC ABG pCO2 POC ABG pO2 Sodium Potassium Chloride Carbon Dioxide BUN Creatinine Glucose POC Glucose 126 H Calcium Total Bilirubin Direct Bilirubin Alkaline Phosphatase Lactate Dehydrogenase Troponin T NT-Pro-B Natriuret Pep Albumin Fluid Glucose Fluid Total Protein 3.2 L Digoxin 08/08/19 08/08/19 08/08/19 08:27 16:14 21:24 WBC Hgb Hct RDW Lymph % (Auto) [place] % (Auto) Lymph # [place] # Seg Neutrophils % Seg Neuts % (Manual) Lymphocytes % (Manual) Seg Neutrophils # Seg Neutrophils # Man Lymphocytes # (Manual) POC ABG pCO2 POC ABG pO2 Sodium Potassium Chloride 95.3 L Carbon Dioxide BUN 48 H Creatinine 1.7 H Glucose POC Glucose 155 H 123 H Calcium Total Bilirubin Direct Bilirubin Alkaline Phosphatase Lactate Dehydrogenase Troponin T NT-Pro-B Natriuret Pep Albumin Fluid Glucose Fluid Total Protein Digoxin 08/09/19 08/09/19 08/09/19 11:44 11:44 13:02 WBC Hgb 11.1 L Hct 34.6 L RDW 19.0 H Lymph % (Auto) [place] % (Auto) Lymph # [place] # Seg Neutrophils % Seg Neuts % (Manual) Lymphocytes % (Manual) Seg Neutrophils # Seg Neutrophils # Man Lymphocytes # (Manual) POC ABG pCO2 POC ABG pO2 Sodium 134 L Potassium Chloride 91.2 L Carbon Dioxide BUN 51 H Creatinine 1.8 H Glucose 140 H POC Glucose 150 H Calcium Total Bilirubin Direct Bilirubin Alkaline Phosphatase Lactate Dehydrogenase Troponin T NT-Pro-B Natriuret Pep Albumin Fluid Glucose Fluid Total Protein Digoxin 08/09/19 08/09/19 08/10/19 17:25 20:49 05:56 WBC Hgb Hct RDW Lymph % (Auto) [place] % (Auto) Lymph # [place] # Seg Neutrophils % Seg Neuts % (Manual) Lymphocytes % (Manual) Seg Neutrophils # Seg Neutrophils # Man Lymphocytes # (Manual) POC ABG pCO2 POC ABG pO2 Sodium 136 L Potassium Chloride 94.1 L Carbon Dioxide BUN 50 H Creatinine 1.6 H Glucose POC Glucose 106 H 138 H Calcium Total Bilirubin Direct Bilirubin Alkaline Phosphatase Lactate Dehydrogenase Troponin T NT-Pro-B Natriuret Pep Albumin Fluid Glucose Fluid Total Protein Digoxin 08/10/19 08/10/19 08/10/19 05:56 10:27 11:54 WBC Hgb Hct RDW Lymph % (Auto) [place] % (Auto) Lymph # [place] # Seg Neutrophils % Seg Neuts % (Manual) Lymphocytes % (Manual) Seg Neutrophils # Seg Neutrophils # Man Lymphocytes # (Manual) POC ABG pCO2 48.6 H POC ABG pO2 117 H Sodium Potassium Chloride Carbon Dioxide BUN Creatinine Glucose POC Glucose 109 H Calcium Total Bilirubin Direct Bilirubin Alkaline Phosphatase Lactate Dehydrogenase Troponin T NT-Pro-B Natriuret Pep Albumin Fluid Glucose Fluid Total Protein Digoxin 0.7 L 08/10/19 08/10/19 08/11/19 15:53 20:36 05:17 WBC Hgb 11.7 L Hct RDW 19.0 H Lymph % (Auto) 11.7 L [place] % (Auto) 11.7 H Lymph # [place] # 1.2 H Seg Neutrophils % 75.1 H Seg Neuts % (Manual) Lymphocytes % (Manual) Seg Neutrophils # Seg Neutrophils # Man Lymphocytes # (Manual) POC ABG pCO2 POC ABG pO2 Sodium Potassium Chloride Carbon Dioxide BUN Creatinine Glucose POC Glucose 162 H 113 H Calcium Total Bilirubin Direct Bilirubin Alkaline Phosphatase Lactate Dehydrogenase Troponin T NT-Pro-B Natriuret Pep Albumin Fluid Glucose Fluid Total Protein Digoxin 08/11/19 08/11/19 08/11/19 05:17 11:17 16:29 WBC Hgb Hct RDW Lymph % (Auto) [place] % (Auto) Lymph # [place] # Seg Neutrophils % Seg Neuts % (Manual) Lymphocytes % (Manual) Seg Neutrophils # Seg Neutrophils # Man Lymphocytes # (Manual) POC ABG pCO2 POC ABG pO2 Sodium Potassium Chloride 93.6 L Carbon Dioxide BUN 55 H Creatinine 1.7 H Glucose POC Glucose 160 H 143 H Calcium Total Bilirubin Direct Bilirubin Alkaline Phosphatase 197 H Lactate Dehydrogenase Troponin T NT-Pro-B Natriuret Pep Albumin 3.3 L Fluid Glucose Fluid Total Protein Digoxin 08/11/19 08/12/19 08/12/19 21:23 12:10 13:08 WBC Hgb Hct RDW Lymph % (Auto) [place] % (Auto) Lymph # [place] # Seg Neutrophils % Seg Neuts % (Manual) Lymphocytes % (Manual) Seg Neutrophils # Seg Neutrophils # Man Lymphocytes # (Manual) POC ABG pCO2 POC ABG pO2 Sodium Potassium Chloride 94.5 L Carbon Dioxide 32 H BUN 60 H Creatinine 1.7 H Glucose 140 H POC Glucose 175 H 111 H Calcium Total Bilirubin Direct Bilirubin Alkaline Phosphatase Lactate Dehydrogenase Troponin T NT-Pro-B Natriuret Pep Albumin Fluid Glucose Fluid Total Protein Digoxin 08/12/19 08/12/19 08/13/19 16:50 21:25 05:05 WBC Hgb 11.3 L Hct 35.0 L RDW 18.7 H Lymph % (Auto) [place] % (Auto) Lymph # [place] # Seg Neutrophils % Seg Neuts % (Manual) Lymphocytes % (Manual) Seg Neutrophils # Seg Neutrophils # Man Lymphocytes # (Manual) POC ABG pCO2 POC ABG pO2 Sodium Potassium Chloride Carbon Dioxide BUN Creatinine Glucose POC Glucose 180 H 126 H Calcium Total Bilirubin Direct Bilirubin Alkaline Phosphatase Lactate Dehydrogenase Troponin T NT-Pro-B Natriuret Pep Albumin Fluid Glucose Fluid Total Protein Digoxin 08/13/19 08/13/19 08/13/19 05:05 05:27 12:11 WBC Hgb Hct RDW Lymph % (Auto) [place] % (Auto) Lymph # [place] # Seg Neutrophils % Seg Neuts % (Manual) Lymphocytes % (Manual) Seg Neutrophils # Seg Neutrophils # Man Lymphocytes # (Manual) POC ABG pCO2 POC ABG pO2 Sodium Potassium Chloride 94.9 L Carbon Dioxide 32 H BUN 63 H Creatinine 1.7 H Glucose 124 H POC Glucose 112 H 111 H Calcium Total Bilirubin Direct Bilirubin Alkaline Phosphatase Lactate Dehydrogenase Troponin T NT-Pro-B Natriuret Pep Albumin Fluid Glucose Fluid Total Protein Digoxin 08/13/19 08/14/19 08/14/19 20:36 04:41 04:41 WBC Hgb 11.2 L Hct 34.2 L RDW 18.9 H Lymph % (Auto) [place] % (Auto) Lymph # [place] # Seg Neutrophils % Seg Neuts % (Manual) Lymphocytes % (Manual) Seg Neutrophils # Seg Neutrophils # Man Lymphocytes # (Manual) POC ABG pCO2 POC ABG pO2 Sodium Potassium 5.3 H D Chloride 95.2 L Carbon Dioxide BUN 62 H Creatinine 1.7 H Glucose POC Glucose 116 H Calcium Total Bilirubin Direct Bilirubin Alkaline Phosphatase Lactate Dehydrogenase Troponin T NT-Pro-B Natriuret Pep Albumin Fluid Glucose Fluid Total Protein Digoxin Allied health notes reviewed: nursing
[2019-08-14] MEDS ORDERED: SODIUM POLYSTYRENE 15 GM/60 ML ORAL LIQD PO ONE (12:37)
--- NOTE | 2019-08-14 12:40 | Progress Note ---
Subjective Principal diagnosis: Ac. hypoxemic Resp failure; Right pleural effusion; AE-CHF; ESTEVAN on CKD Interval history: Patient was seen today for follow-up on multiple renal related issues Events of this hospitalization were noted Interdisciplinary notes were also reviewed Vitals intake output medications were reviewed Past medical history: Reviewed Family, social history: Reviewed Allergies: Reviewed Physical examination General: No acute distress Vitals: Reviewed HEENT: Oral mucosa moist no icterus Neck: Supple no thyromegaly nodular mass or JVD Chest: Clear to auscultation anteriorly Heart: Regular rate and rhythm S1-S2 heard no S3-S4 Abdomen: Soft nontender no suprapubic masses no organomegaly Extremity: Dry chronic 2+ edema both lower extremity Psych: No evidence of any agitation and aggression noted Derm: No petechial rash Assessment and plan: Acute kidney injury with underlying chronic kidney disease baseline creatinine is around 1.2-1.3 Congestive heart failure separation severely depressed ejection fraction about 10% Adjust diuretics as needed strict fluid restriction Recurrent right pleural effusion Needs to follow up with pulmonary as well as cardiology Alterable risk factor for underlying chronic kidney disease as well as progression over time he'll also be prone to progression of renal failure due to cardiorenal All renal related issues were discussed with the patient, patient does exhibit good understanding, lab results were also discussed with patient in simple Thai Prognosis: Guarded We'll continue to follow and make recommendation from renal standpoint Objective - Vital Signs Vital signs: Vital Signs - 12hr 08/14/19 08/14/19 08/14/19 04:51 05:14 08:20 Temperature 98.3 F Pulse Rate 67 75 Respiratory 18 20 Rate Blood Pressure 104/61 121/61 O2 Sat by Pulse 98 Oximetry 08/14/19 08/14/19 08:26 09:54 Temperature 98.3 F Pulse Rate 78 80 Respiratory 18 Rate Blood Pressure 124/86 121/71 O2 Sat by Pulse 96 Oximetry - Lab 08/15/19 06:52 08/15/19 06:52 Most recent lab results Calcium 8.8 mg/dL (8.4-10.2) 08/14/19 04:41 Magnesium 2.30 mg/dL (1.7-2.3) 08/13/19 05:05 Medications & Allergies - Medications Allergies/Adverse Reactions: Allergies Penicillins Allergy (Verified 03/05/19 22:41) Itching strawberry Allergy (Verified 03/05/19 22:41) Hives Home Medications: Home Medications Medication Instructions Recorded Confirmed Last Taken Type Colchicine 0.6 mg PO QDAY #10 capsule 07/24/19 08/02/19 Unknown Rx Docusate Sodium [Colace CAP] 100 mg PO BID capsule 07/24/19 08/02/19 Unknown Rx Nicotine [Habitrol] 14 mg TD QDAY #30 patch 07/24/19 08/02/19 Unknown Rx Oxycodone HCl/Acetaminophen 1 each PO Q6HR PRN #20 tablet 07/24/19 08/02/19 Unknown Rx [Percocet 10/325 mg] Sodium Bicarbonate 1,300 mg PO BID #90 tablet 07/24/19 08/02/19 Unknown Rx guaiFENesin ER [Mucinex ER] 600 mg PO BID #60 tablet 07/24/19 08/02/19 Unknown Rx Apixaban [Eliquis] 1 tab PO BID #60 tablet 08/15/19 Unknown Rx Aspirin [Aspirin BABY CHEW TAB] 81 mg PO QDAY #30 tab.chew 08/15/19 Unknown Rx AtorvaSTATin [Lipitor] 40 mg PO QHS #30 tablet 08/15/19 Unknown Rx Digoxin [Lanoxin] 0.25 mg PO Q48H #30 tablet 08/15/19 Unknown Rx Metoprolol [Lopressor TAB] 75 mg PO TID #90 tablet 08/15/19 Unknown Rx Spironolactone [Aldactone] 25 mg PO QDAY #30 tablet 08/15/19 Unknown Rx Spironolactone [Aldactone] 50 mg PO QDAY #30 tablet 08/15/19 Unknown Rx Active Medications: Generic Name Dose Route Start Last Admin Trade Name Freq PRN Reason Stop Dose Admin Acetaminophen 650 mg 08/06/19 12:38 08/13/19 21:40 Tylenol PO 650 mg Q4H PRN Administration Pain MILD(1-3)/Fever >100.5/TRUJILLO Apixaban 5 mg 08/02/19 10:00 08/14/19 09:51 Eliquis PO 5 mg BID SOUMYA Administration Protocol Aspirin 81 mg 08/02/19 10:00 08/14/19 09:51 Baby Aspirin PO 81 mg QDAY SOUMYA Administration Atorvastatin Calcium 40 mg 08/02/19 22:00 08/13/19 21:42 Lipitor PO 40 mg QHS SOUMYA Administration Cephalexin 500 mg 08/10/19 17:00 08/14/19 05:15 Keflex PO 500 mg Q8HR [facility] Administration Digoxin 0.25 mg 08/04/19 17:00 08/12/19 17:43 Lanoxin PO 0.25 mg Q48H SOUMYA Administration Docusate Sodium 100 mg 08/02/19 10:00 08/14/19 09:51 Colace PO 100 mg BID [facility] Administration Famotidine 20 mg 08/02/19 10:00 08/14/19 09:51 Pepcid PO 20 mg BID SOUMYA Administration Furosemide 80 mg 08/09/19 18:00 08/14/19 09:54 Lasix IV 80 mg 0900,1800 [facility] Administration Hydromorphone HCl 1 mg 08/12/19 16:11 08/13/19 14:39 Dilaudid IV 1 mg Q4H PRN Administration Pain , Severe (7-10) Dobutamine HCl/Dextrose 500 mg in 250 mls @ 14.76 mls/hr 08/14/19 10:00 Dobutrex Drip 500mg/D5w 250ml IV TITR SOUMYA 5 MCG/KG/MIN Insulin Human Lispro 0 unit 08/02/19 07:30 08/13/19 21:46 Humalog SUB-Q Not Given ACHS [facility] Protocol Metoclopramide HCl 10 mg 08/02/19 04:12 Reglan IV Q6H PRN Nausea And Vomiting Metoprolol Tartrate 50 mg 08/02/19 08:00 08/14/19 08:20 Metoprolol PO 50 mg TID [facility] Administration Metoprolol Tartrate 25 mg 08/02/19 08:00 08/14/19 09:54 Metoprolol PO 25 mg TID [facility] Administration Nicotine 14 mg 08/02/19 10:00 08/14/19 09:51 Habitrol TD Not Given QDAY [facility] Ondansetron HCl 4 mg 08/02/19 04:12 Zofran IV Q8H PRN Nausea And Vomiting Oxycodone HCl 5 mg 08/02/19 04:18 08/14/19 05:14 Roxicodone PO 5 mg Q6H PRN Administration Pain, (7-10) Oxycodone/Acetaminophen 1 tab 08/02/19 04:09 08/14/19 05:14 Percocet 5/325 PO 1 tab Q6H PRN Administration Pain , Severe (7-10) Sodium Chloride 10 ml 08/02/19 04:12 08/11/19 03:43 Sodium Chloride Flush Syringe 10 Ml IV 10 ml PRN PRN Administration LINE FLUSH Sodium Chloride 10 ml 08/02/19 10:00 08/14/19 09:52 Sodium Chloride Flush Syringe 10 Ml IV 10 ml BID SOUMYA Administration
--- NOTE | 2019-08-14 13:12 | Progress Note ---
Assessment and Plan Assessment and plan: Recurrent Pleural effusion -s/p right chest tube . Continue per pulmonology. Chest tube has been discon tinued Acute on Chronic systolic heart failure. Fluid/sodium restriction. Continue medical therapy for chronic systolic heart failure. Cardiology following Due to persistent lower extremity swelling which is still considered severe cardiology and started the patient on dobutamine drip Lasix iv continue I/O Acute on Chronic renal failure. Nephrology following on lasix 80mg iv bid. poor prognosis. Left ankle ulcer with infected hardware ID recommend Ortho evaluation. Consulted- NO INTERVENTION AT THIS TIME PER ORTHO Chronic atrial fibrillation Cont. on Eliquis for oral anticoagulation as an outpatient rate controlled with metoprolol and digoxin Hx of Nonischemic cardiomyopathy EF 15-20% by echo 11/2018 Presence of the ICD recent interrogation revealed a normal functioning device hypertension. Cont current regimen Type 2 diabetes mellitus. Accuchecks and SSRI Chronic obstructive pulmonary disease. Stable MSSA left ulcer ID following On Cefazolin. GENERALIZED BODY PAIN-ADJUST PAIN MEDS, MONITOR FOR HYPOTENSION. Discussed with pulmonary and cardiology will repeat chest xray in am to see if no reaccumlation of fluids History Interval history: Patient seen and examined, resting on a chair, no further behavioral issues noted. Hospitalist Physical - Physical exam Narrative exam: VITAL SIGNS: Reviewed. GENERAL: The patient appears normally developed, otherwise chronically ill- appearing. Sitting up in bed vital signs as documented. HEAD: No signs of head trauma. EYES: Pupils are equal. Extraocular motions intact. EARS: Hearing grossly intact. MOUTH: Oropharynx is normal. NECK: No adenopathy, no JVD. CHEST: Chest with diminished r breath sounds bilaterally. Right chest tube noted. no wheezes, rales, or rhonchi. CARDIAC: Regular rate and rhythm. S1 and S2, without murmurs, gallops, or rubs. VASCULAR: +2 edema. Peripheral pulses normal and equal in all extremities. ABDOMEN: Soft, non tender and non distended. No rebound or guarding, and no masses palpated. Bowel Sounds normal. MUSCULOSKELETAL: Good range of motion of all major joints. Extremities without clubbing, cyanosis. +2 pitting edema bilaterally extending all the way to the ankle. NEUROLOGIC EXAM: Alert and oriented x 3 No focal sensory or strength de ficits. Speech normal. Follows commands. PSYCHIATRIC: Mood normal. SKIN: Left ankle also noted dressing in place no obvious drainage noted. Detail exam as documented in skin assessment - Constitutional Vitals: Temp Pulse Resp BP Pulse Ox 98.3 F 80 18 121/71 96 08/14/19 08:26 08/14/19 09:54 08/14/19 08:26 08/14/19 09:54 08/14/19 08:26 General appearance: Present: no acute distress Results - Labs CBC & Chem 7: 08/14/19 04:41 08/14/19 13:13 Labs: Laboratory Last Values WBC 9.9 K/mm3 (4.5-11.0) 08/14/19 04:41 RBC 3.93 M/mm3 (3.65-5.03) 08/14/19 04:41 Hgb 11.2 gm/dl (11.8-15.2) L 08/14/19 04:41 Hct 34.2 % (35.5-45.6) L 08/14/19 04:41 MCV 87 fl (84-94) 08/14/19 04:41 MCH 29 pg (28-32) 08/14/19 04:41 MCHC 33 % (32-34) 08/14/19 04:41 RDW 18.9 % (13.2-15.2) H 08/14/19 04:41 Plt Count 181 K/mm3 (140-440) 08/14/19 04:41 Lymph % (Auto) 11.7 % (13.4-35.0) L 08/11/19 05:17 [place] % (Auto) 11.7 % (0.0-7.3) H 08/11/19 05:17 Eos % (Auto) 1.2 % (0.0-4.3) 08/11/19 05:17 Baso % (Auto) 0.3 % (0.0-1.8) 08/11/19 05:17 Lymph # 1.2 K/mm3 (1.2-5.4) 08/11/19 05:17 [place] # 1.2 K/mm3 (0.0-0.8) H 08/11/19 05:17 Eos # 0.1 K/mm3 (0.0-0.4) 08/11/19 05:17 Baso # 0.0 K/mm3 (0.0-0.1) 08/11/19 05:17 Add Manual Diff Complete 08/05/19 05:16 Total Counted 100 08/05/19 05:16 Seg Neutrophils % 75.1 % (40.0-70.0) H 08/11/19 05:17 Seg Neuts % (Manual) 89.0 % (40.0-70.0) H 08/05/19 05:16 Band Neutrophils % 0 % 08/05/19 05:16 Lymphocytes % (Manual) 5.0 % (13.4-35.0) L 08/05/19 05:16 Reactive Lymphs % (Man) 0 % 08/05/19 05:16 Monocytes % (Manual) 6.0 % (0.0-7.3) 08/05/19 05:16 Eosinophils % (Manual) 0 % (0.0-4.3) 08/05/19 05:16 Basophils % (Manual) 0 % (0.0-1.8) 08/05/19 05:16 Metamyelocytes % 0 % 08/05/19 05:16 Myelocytes % 0 % 08/05/19 05:16 Promyelocytes % 0 % 08/05/19 05:16 Blast Cells % 0 % 08/05/19 05:16 Nucleated RBC % Not Reportable 08/05/19 05:16 Seg Neutrophils # 7.5 K/mm3 (1.8-7.7) 08/11/19 05:17 Seg Neutrophils # Man 8.3 K/mm3 (1.8-7.7) H 08/05/19 05:16 Band Neutrophils # 0.0 K/mm3 08/05/19 05:16 Lymphocytes # (Manual) 0.5 K/mm3 (1.2-5.4) L 08/05/19 05:16 Abs React Lymphs (Man) 0.0 K/mm3 08/05/19 05:16 Monocytes # (Manual) 0.6 K/mm3 (0.0-0.8) 08/05/19 05:16 Eosinophils # (Manual) 0.0 K/mm3 (0.0-0.4) 08/05/19 05:16 Basophils # (Manual) 0.0 K/mm3 (0.0-0.1) 08/05/19 05:16 Metamyelocytes # 0.0 K/mm3 08/05/19 05:16 Myelocytes # 0.0 K/mm3 08/05/19 05:16 Promyelocytes # 0.0 K/mm3 08/05/19 05:16 Blast Cells # 0.0 K/mm3 08/05/19 05:16 WBC Morphology Not Reportable 08/05/19 05:16 Hypersegmented Neuts Not Reportable 08/05/19 05:16 Hyposegmented Neuts Not Reportable 08/05/19 05:16 Hypogranular Neuts Not Reportable 08/05/19 05:16 Smudge Cells Not Reportable 08/05/19 05:16 Toxic Granulation Not Reportable 08/05/19 05:16 Toxic Vacuolation Not Reportable 08/05/19 05:16 Dohle Bodies Not Reportable 08/05/19 05:16 Pelger-Huet Anomaly Not Reportable 08/05/19 05:16 Cathie Rods Not Reportable 08/05/19 05:16 Platelet Estimate Consistent w auto 08/05/19 05:16 Clumped Platelets Not Reportable 08/05/19 05:16 Plt Clumps, EDTA Not Reportable 08/05/19 05:16 Large Platelets Not Reportable 08/05/19 05:16 Giant Platelets Not Reportable 08/05/19 05:16 Platelet Satelliting Not Reportable 08/05/19 05:16 Plt Morphology Comment Not Reportable 08/05/19 05:16 RBC Morphology Not Reportable 08/05/19 05:16 Dimorphic RBCs Not Reportable 08/05/19 05:16 Polychromasia Not Reportable 08/05/19 05:16 Hypochromasia Not Reportable 08/05/19 05:16 Poikilocytosis Not Reportable 08/05/19 05:16 Anisocytosis Not Reportable 08/05/19 05:16 Microcytosis Not Reportable 08/05/19 05:16 Macrocytosis Not Reportable 08/05/19 05:16 Spherocytes Not Reportable 08/05/19 05:16 Pappenheimer Bodies Not Reportable 08/05/19 05:16 Sickle Cells Not Reportable 08/05/19 05:16 Target Cells Not Reportable 08/05/19 05:16 Tear Drop Cells Not Reportable 08/05/19 05:16 Ovalocytes Not Reportable 08/05/19 05:16 Stomatocytes Rare 08/05/19 05:16 Helmet Cells Not Reportable 08/05/19 05:16 [place] Bodies Not Reportable 08/05/19 05:16 [place] Rings Not Reportable 08/05/19 05:16 Shahram Cells Rare 08/05/19 05:16 Bite Cells Not Reportable 08/05/19 05:16 Crenated Cell Not Reportable 08/05/19 05:16 Elliptocytes Few 08/05/19 05:16 Acanthocytes (Spur) Not Reportable 08/05/19 05:16 Rouleaux Not Reportable 08/05/19 05:16 Hemoglobin C Crystals Not Reportable 08/05/19 05:16 Schistocytes Not Reportable 08/05/19 05:16 Malaria parasites Not Reportable 08/05/19 05:16 ESR 17 mm/Hr (0-20) 08/10/19 05:56 [place] Bodies Not Reportable 08/05/19 05:16 Hem Pathologist Commnt No 08/05/19 05:16 PT 13.9 Sec. (12.2-14.9) 08/01/19 18:49 INR 1.08 (0.87-1.13) 08/01/19 18:49 APTT 30.8 Sec. (24.2-36.6) 08/01/19 18:49 POC ABG pH 7.407 (7.35-7.45) 08/10/19 10:27 POC ABG pCO2 48.6 (35-45) H 08/10/19 10:27 POC ABG pO2 117 (80-105) H 08/10/19 10:27 POC ABG HCO3 30.6 (22-26 mml/L) 08/10/19 10:27 POC ABG Total CO2 32 (23-27mmol/L) 08/10/19 10:27 POC ABG O2 Sat 99 08/10/19 10:27 POC ABG Base Excess 6 ((-2) - (+3)mmol/L) 08/10/19 10:27 FiO2 33 % 08/10/19 10:27 Sodium 138 mmol/L (137-145) 08/14/19 04:41 Potassium 5.3 mmol/L (3.6-5.0) H D 08/14/19 04:41 Chloride 95.2 mmol/L (98-107) L 08/14/19 04:41 Carbon Dioxide 25 mmol/L (22-30) D 08/14/19 04:41 Anion Gap 23 mmol/L 08/14/19 04:41 BUN 62 mg/dL (9-20) H 08/14/19 04:41 Creatinine 1.7 mg/dL (0.8-1.5) H 08/14/19 04:41 Estimated GFR 51 ml/min 08/14/19 04:41 BUN/Creatinine Ratio 36 % 08/14/19 04:41 Glucose 89 mg/dL (75-100) 08/14/19 04:41 POC Glucose 74 (70-105) 08/14/19 11:31 Hemoglobin A1c 5.9 % (4-6) 08/02/19 07:49 Calcium 8.8 mg/dL (8.4-10.2) 08/14/19 04:41 Magnesium 2.30 mg/dL (1.7-2.3) 08/13/19 05:05 Total Bilirubin 0.60 mg/dL (0.1-1.2) 08/11/19 05:17 Direct Bilirubin 1.0 mg/dL (0-0.2) H 08/01/19 18:49 Indirect Bilirubin 0.8 mg/dL 08/01/19 18:49 AST 25 units/L (5-40) 08/11/19 05:17 ALT 15 units/L (7-56) 08/11/19 05:17 Alkaline Phosphatase 197 units/L (35-129) H 08/11/19 05:17 Lactate Dehydrogenase 199 units/L (91-180) H 08/03/19 17:01 Troponin T 0.054 ng/mL (0.00-0.029) H 08/02/19 00:28 C-Reactive Protein 0.40 mg/dL (0.00-1.30) 08/10/19 05:56 NT-Pro-B Natriuret Pep 47516 pg/mL (0-900) H 08/01/19 18:49 Total Protein 7.1 g/dL (6.3-8.2) 08/11/19 05:17 Albumin 3.3 g/dL (3.9-5) L 08/11/19 05:17 Albumin/Globulin Ratio 0.9 % 08/11/19 05:17 Triglycerides 69 mg/dL (2-149) 08/01/19 18:49 Cholesterol 131 mg/dL (50-199) 08/01/19 18:49 LDL Cholesterol Direct 88 mg/dL (50-130) 08/01/19 18:49 HDL Cholesterol 41 mg/dL (40-59) 08/01/19 18:49 Cholesterol/HDL Ratio 3.19 % 08/01/19 18:49 Fluid Type Pleural 08/07/19 20:20 Fluid Color Yellow 08/07/19 20:20 Fluid Appearance Cloudy 08/07/19 20:20 Fluid WBC 348 /mm3 08/07/19 20:20 Fluid RBC 669 /mm3 08/07/19 20:20 Fluid Seg Neutrophils 1.0 % 08/07/19 20:20 Fluid Lymphocytes 26.0 % 08/07/19 20:20 Fluid Reactive Lymphs 0 % 08/07/19 20:20 Fluid Monocytes 14.0 % 08/07/19 20:20 Fluid Eosinophils 59.0 % 08/07/19 20:20 Fluid Basophils 0 % 08/07/19 20:20 Fluid Glucose 99 mg/dL (40-70) H 08/07/19 20:20 Fluid Total Protein 3.2 (15.0-45.0) L 08/08/19 02:12 Fluid LDH 256 08/08/19 02:12 Fluid Amylase 48 08/07/19 20:20 Digoxin 0.7 ng/mL (0.9-2.0) L 08/10/19 05:56 AFB Identification 08/07/19 20:20 Fungal Id Prelim 08/07/19 20:20 Active Medications - Current Medications Current Medications: Generic Name Dose Route Start Last Admin Trade Name Freq PRN Reason Stop Dose Admin Acetaminophen 650 mg 08/06/19 12:38 08/13/19 21:40 Tylenol PO 650 mg Q4H PRN Administration Pain MILD(1-3)/Fever >100.5/TRUJILLO Apixaban 5 mg 08/02/19 10:00 08/14/19 09:51 Eliquis PO 5 mg BID SOUMYA Administration Protocol Aspirin 81 mg 08/02/19 10:00 08/14/19 09:51 Baby Aspirin PO 81 mg QDAY SOUMYA Administration Atorvastatin Calcium 40 mg 08/02/19 22:00 08/13/19 21:42 Lipitor PO 40 mg QHS SOUMYA Administration Cephalexin 500 mg 08/10/19 17:00 08/14/19 05:15 Keflex PO 500 mg Q8HR [facility] Administration Digoxin 0.25 mg 08/04/19 17:00 08/12/19 17:43 Lanoxin PO 0.25 mg Q48H SOUMYA Administration Docusate Sodium 100 mg 08/02/19 10:00 08/14/19 09:51 Colace PO 100 mg BID [facility] Administration Famotidine 20 mg 08/02/19 10:00 08/14/19 09:51 Pepcid PO 20 mg BID [facility] Administration Furosemide 80 mg 08/09/19 18:00 08/14/19 09:54 Lasix IV 80 mg 0900,1800 [facility] Administration Hydromorphone HCl 1 mg 08/12/19 16:11 08/13/19 14:39 Dilaudid IV 1 mg Q4H PRN Administration Pain , Severe (7-10) Dobutamine HCl/Dextrose 500 mg in 250 mls @ 14.76 mls/hr 08/14/19 10:00 Dobutrex Drip 500mg/D5w 250ml IV TITR SOUMYA 5 MCG/KG/MIN Insulin Human Lispro 0 unit 08/02/19 07:30 08/13/19 21:46 Humalog SUB-Q Not Given ACHS [facility] Protocol Metoclopramide HCl 10 mg 08/02/19 04:12 Reglan IV Q6H PRN Nausea And Vomiting Metoprolol Tartrate 50 mg 08/02/19 08:00 08/14/19 08:20 Metoprolol PO 50 mg TID [facility] Administration Metoprolol Tartrate 25 mg 08/02/19 08:00 08/14/19 09:54 Metoprolol PO 25 mg TID [facility] Administration Nicotine 14 mg 08/02/19 10:00 08/14/19 09:51 Habitrol TD Not Given QDAY [facility] Ondansetron HCl 4 mg 08/02/19 04:12 Zofran IV Q8H PRN Nausea And Vomiting Oxycodone HCl 5 mg 08/02/19 04:18 08/14/19 05:14 Roxicodone PO 5 mg Q6H PRN Administration Pain, (7-10) Oxycodone/Acetaminophen 1 tab 08/02/19 04:09 08/14/19 05:14 Percocet 5/325 PO 1 tab Q6H PRN Administration Pain , Severe (7-10) Sodium Chloride 10 ml 08/02/19 04:12 08/11/19 03:43 Sodium Chloride Flush Syringe 10 Ml IV 10 ml PRN PRN Administration LINE FLUSH Sodium Chloride 10 ml 08/02/19 10:00 08/14/19 09:52 Sodium Chloride Flush Syringe 10 Ml IV 10 ml BID SOUMYA Administration Nutrition/Malnutrition Assess - Dietary Evaluation Nutrition/Malnutrition Findings: Nutrition Notes Start: 08/06/19 11:55 Freq: Status: Active Protocol: Document 08/12/19 11:25 TAYA (Rec: 08/12/19 11:44 [facility]-[id number]) Nutrition Notes Initial or Follow up Brief Note Subjective/Other Information Pt has been complaing to [facility] about not recieving double portions of every tray item. RD explained to pt how double portions of CHO and protein- foods may exacerbate some of his medical conditions. Pt stated he didn't really care that much about double portions, he was just upset because he believes someone hung up the phone on him in the kitchen. Pt food preferences noted in diet order. RD observed 5 unopened Glucerna bottles in room. Pt stated he "loved them," but was saving them in case his blood sugars drop at night. Pt requested a fourth Glucerna so he can have one with each meal to aid with weight gain and one before bed just in case. Nutrition Intervention Add Supplement/Snack (indicate name/kcal Glucerna Vanilla and chocolate /protein ) QID
[2019-08-14] MEDS: DOBUTamine/D5W 500 MG/250 ML 500 MG/250 ML BAG IV SCH (13:45)
--- NOTE | 2019-08-14 15:25 | Event Note ---
Date: 08/14/19 Reviewed chest x-ray, tiny basilar hydropneumothorax. Should resolve over the next few days. Has Tegaderm/adherent dressing over chest tube site. No crepitus. Will defer to pulmonology.
[2019-08-14] MEDS: DIGOXIN 0.25 MG TAB PO SCH (18:07)
[2019-08-14] MEDS: HYDROmorphone 1 MG/1 ML INJ IV PRN (23:23)
[2019-08-15] MEDS: oxyCODONE /ACETAMINOPHEN 5-325MG TAB PO PRN ×2 (03:10→09:28)
[2019-08-15] MEDS: cephALEXin 500 MG CAP PO SCH (05:38)
[2019-08-15] MEDS: HYDROmorphone 1 MG/1 ML INJ IV PRN (06:37)
[2019-08-15] MEDS: INSULIN LISPRO 100 UNIT/ML SUB-Q SCH (07:44)
[2019-08-15 07:56] LABS: Hematocrit 36.2 % (35.5-45.6); Hemoglobin 11.7 gm/dl (11.8-15.2); Mean Corpuscular HGB Conc 32 % (32-34); Mean Corpuscular Volume 88 fl (84-94); Platelet Count 179 K/mm3 (140-440); Red Cell Distribution Width 19.1 % (13.2-15.2)
[2019-08-15 08:23] LABS: Calcium 8.9 mg/dL (8.4-10.2)
[2019-08-15 08:43] VITALS: BP 116/75
[2019-08-15] MEDS: APIXABAN 5 MG TAB PO SCH (09:27)
[2019-08-15] MEDS: FAMOTIDINE 20 MG TAB PO SCH (09:27)
[2019-08-15] MEDS: METOPROLOL TARTRATE 50 MG TAB PO SCH (09:27)
[2019-08-15] MEDS: METOPROLOL TARTRATE 25 MG TAB PO SCH (09:27)
[2019-08-15] MEDS: ASPIRIN 81 MG TAB CHEW PO SCH (09:27)
[2019-08-15] MEDS: DOCUSATE SODIUM 100 MG CAP PO SCH (09:27)
[2019-08-15] MEDS: FUROSEMIDE 40 MG/4 ML INJ IV SCH (09:28)
[2019-08-15] MEDS: NICOTINE 14 MG/24 HR PATCH TD SCH (09:28)
[2019-08-15] MEDS: DOBUTamine/D5W 500 MG/250 ML 500 MG/250 ML BAG IV SCH (09:29)
[2019-08-15] MEDS: oxyCODONE 5 MG TAB PO PRN (09:29)
--- NOTE | 2019-08-15 10:20 | Progress Note ---
Assessment and Plan 1. Chronic combined systolic and diastolic heart failure 2. Dilated cardiomyopathy 3. Chronic obstructive pulmonary disease 4. Essential hypertension 5. Type 2 diabetes mellitus 6. Chronic atrial fibrillation 7. Left lower extremity ulcer probably secondary to venostasis. Plan. Patient still has significant bilateral pedal edema. Will continue IV Dobutrex Subjective Date of service: 08/15/19 Principal diagnosis: Ac. hypoxemic Resp failure; Right pleural effusion; AE-CHF; ESTEVAN on CKD Interval history: Shortness of breath and fatigue better. Pedal edema showing significant improvement but now he has difficulty passing urine. Objective Vital Signs Temp Pulse Resp BP Pulse Ox 08/15/19 09:17 97 08/15/19 08:58 80 08/15/19 08:40 97.5 F L 81 18 116/75 95 08/15/19 05:01 98.4 F 08/15/19 04:58 73 20 90/52 97 08/15/19 00:09 98.9 F 08/15/19 00:08 68 18 96/58 98 08/14/19 23:23 18 08/14/19 20:53 98.1 F 68 108/59 08/14/19 20:49 68 20 108/59 94 08/14/19 19:53 94 H 08/14/19 19:04 89 110/52 100 08/14/19 18:07 89 110/52 08/14/19 15:44 98.3 F 87 18 102/65 92 08/14/19 14:19 17 08/14/19 14:17 17 08/14/19 13:48 59 L 105/62 08/14/19 13:19 18 08/14/19 13:17 17 08/14/19 12:10 98.7 F 69 18 106/65 91 - Physical Examination General: No Apparent Distress HEENT: Positive: PERRL Neck: Positive: trachea midline Cardiac: Positive: Regular Rate, S1/S2, S3, S4, PMI, Dilated, Laterally Displaced Lungs: Positive: Decreased Breath Sounds. Negative: Wheezes Neuro: Positive: Grossly Intact Abdomen: Positive: Unremarkable, Active Bowel Sounds Extremities: Present: edema, +2 Edema, Other (LLE ulcer) - Labs and Meds CBC 08/15/19 Range/Units 06:52 WBC 7.9 (4.5-11.0) K/mm3 RBC 4.10 (3.65-5.03) M/mm3 Hgb 11.7 L (11.8-15.2) gm/dl Hct 36.2 (35.5-45.6) % Plt Count 179 (140-440) K/mm3 Comprehensive Metabolic Panel 08/14/19 08/15/19 Range/Units 13:13 06:52 Sodium 139 (137-145) mmol/L Potassium 4.1 D 3.9 (3.6-5.0) mmol/L Chloride 92.7 L (98-107) mmol/L Carbon Dioxide 28 (22-30) mmol/L BUN 55 H (9-20) mg/dL Creatinine 1.5 (0.8-1.5) mg/dL Glucose 96 (75-100) mg/dL Calcium 8.9 (8.4-10.2) mg/dL - Allied health notes Allied health notes reviewed: nursing
--- NOTE | 2019-08-15 11:26 | Discharge Summary ---
Providers - Providers Date of Admission: 08/01/19 21:45 Attending physician: YOKASTA NEWMAN MD 08/02/19 04:12 Consult to Physician [CONS] Routine Comment: Consulting Provider: NURY ACEVEDO Physician Instructions: Reason For Exam: CHF exacerbation 08/02/19 04:36 Consult to Wound/ET Nurse [CONS] Routine Reason For Exam: wound eval 08/02/19 15:05 Consult to Physician [CONS] Routine Comment: Consulting Provider: LOWELL CERDA Physician Instructions: Reason For Exam: pleural effusion 08/03/19 15:41 Consult to Interventional Radiology [CONS] Routine Consulting Provider: LIZBETH LANE Reason For Exam: Chest tube placement; recurrent R. effusion Place consult to:: Dr. Lane Notified:: Sylvie DE LA CRUZ Phone number called:: Was contact made?: Yes If yes, spoke with:: Kathi-office Time called:: 08:44 08/05/19 10:13 Consult to Physician [CONS] Routine Comment: Consulting Provider: ELLIS STARKS Physician Instructions: Reason For Exam: ARF 08/07/19 12:29 Consult to Physician [CONS] Routine Comment: Consulting Provider: ANI DEWEY Physician Instructions: Reason For Exam: MSSA left ankle ulcer 08/09/19 15:32 Consult to Physician [CONS] Routine Comment: Consulting Provider: JAIR HILL Physician Instructions: Reason For Exam: removal of hardware left ankle recommended by ID 08/11/19 14:31 Physical Therapy Evaluation and Treat [CONS] Urgent Comment: Reason For Exam: deconditioning Date of last referral: 08/11/19 08/13/19 11:03 Consult to Interventional Radiology [CONS] Routine Consulting Provider: LIZBETH LANE Reason For Exam: Please remove right chest tube. Thanks Place consult to:: vascular Notified:: yes Phone number called:: [phone] Was contact made?: Yes Primary care physician: FACULTY DEAN Hospitalization Reason for admission: Shortness of breath Condition: Stable Hospital course: Patient is 54 years old male with history of congestive heart failure with ejection fraction of 10%, defibrillator. Patient brought to the emergency room via EMS for evaluation or shortness of breath for the last 3 days associated with chest pain pressure in nature with no radiation with significant bilateral lower extremity swelling. Patient was recently discharged from the hospital after he had a thoracocentesis secondary to large right pleural effusion. Patient stated that symptoms is recurring again. Patient denied any fever or chills. * On admission the patient was noted to have pleural effusion for which a chest tube was placed subsequently discontinued * Due to severity of cardiac dysfunction with an EF of 10% patient was aggressively diuresed with Lasix going up as high as 80 mg IV twice daily despite this measures the patient maintained severe 3+ pedal edema bilaterally eventually requiring dobutamine IV which made some difference with final resolution of acute kidney injury. * Patient was subsequently discharged after prolonged stay in the hospital due to severe shortness of breath including an episode of altered mental status with confusion. Despite all the warning was the patient was discharged outside he was noted to be smoking. He was cautioned again. * He understands the poor prognosis of his condition and the need to follow-up with pulmonary, cardiology, ritual circumciser. * Aspiration course was also prolonged due to antibiotic requirement for left lower extremity ulcer he did complete his antibiotic treatment. Orthopedic surgeon also evaluated the patient and recommended no further work-up at this time. Recurrent Pleural effusion Acute on Chronic systolic heart failure. With severe cardiomyopathy ejection fraction of 10% Acute on Chronic renal failure secondary to cardiorenal syndrome Left ankle ulcer with infected hardware Chronic atrial fibrillation Hx of Nonischemic cardiomyopathy Presence of the ICD hypertension. Type 2 diabetes mellitus. Chronic obstructive pulmonary disease. MSSA left ulcer Disposition: TO HOME OR SELFCARE Time spent for discharge: 35 mins Core Measure Documentation - Palliative Care Palliative Care/ Comfort Measures: Not Applicable - Core Measures Any of the following diagnoses?: heart failure - Heart Failure Discharge Requirements INES/ARB for LVSD if EF <40%: No Reason for no INES/ARB: Renal impairment Beta nathaniel at discharge: Yes Exam - Physical Exam Narrative exam: VITAL SIGNS: Reviewed. GENERAL: The patient appears normally developed, otherwise chronically ill- appearing. Sitting up in bed vital signs as documented. HEAD: No signs of head trauma. EYES: Pupils are equal. Extraocular motions intact. EARS: Hearing grossly intact. MOUTH: Oropharynx is normal. NECK: No adenopathy, no JVD. CHEST: Chest with diminished r breath sounds bilaterally. Right chest tube noted. no wheezes, rales, or rhonchi. CARDIAC: Regular rate and rhythm. S1 and S2, without murmurs, gallops, or rubs. VASCULAR: +2 edema. Peripheral pulses normal and equal in all extremities. ABDOMEN: Soft, non tender and non distended. No rebound or guarding, and no masses palpated. Bowel Sounds normal. MUSCULOSKELETAL: Good range of motion of all major joints. Extremities without clubbing, cyanosis. +2 pitting edema bilaterally extending all the way to the ankle. NEUROLOGIC EXAM: Alert and oriented x 3 No focal sensory or strength deficits. Speech normal. Follows commands. PSYCHIATRIC: Mood normal. SKIN: Left ankle also noted dressing in place no obvious drainage noted. Detail exam as documented in skin assessment - Constitutional Vitals: Temp Pulse Resp BP Pulse Ox 97.5 F L 80 18 116/75 97 08/15/19 08:40 08/15/19 08:58 08/15/19 08:40 08/15/19 08:40 08/15/19 09:17 Plan Activity: advance as tolerated, fall precautions Diet: low fat, low salt, diabetic Special Instructions: restrict fluid intake to (1000cc/day), record daily BP diary, record blood sugar diary Additional Instructions: CHECK RENAL FUNCTION TEST (BMP) IN 5 DAYS Follow up with: PRIMARY CAREMD [Primary Care Provider] - 3-5 Days PERNELL LUGO MD [Staff Physician] - 7 Days NURY ACEVEDO MD [Staff Physician] - 7 Days CHI GUTIERREZ MD [Staff Physician] - 7 Days Prescriptions: AtorvaSTATin [Lipitor] 40 mg PO QHS #30 tablet Spironolactone [Aldactone] 25 mg PO QDAY #30 tablet Spironolactone [Aldactone] 50 mg PO QDAY #30 tablet Aspirin [Aspirin BABY CHEW TAB] 81 mg PO QDAY #30 tab.chew Apixaban [Eliquis] 1 tab PO BID #60 tablet Digoxin [Lanoxin] 0.25 mg PO Q48H #30 tablet Metoprolol [Lopressor TAB] 75 mg PO TID #90 tablet
--- NOTE | 2019-08-15 11:30 | Progress Note ---
Subjective Principal diagnosis: Ac. hypoxemic Resp failure; Right pleural effusion; AE-CHF; ESTEVAN on CKD Interval history: Patient was seen today for follow-up on multiple renal related issues he has much better understanding about his health Agrees that he has not been complying with his sodium and fluid in the past Willing to follow up with his roll out manager and rimary physician next week Vitals intake output medications were reviewed Past medical history: Reviewed Family, social history: Reviewed Allergies: Reviewed Physical examination General: No acute distress Vitals: Reviewed HEENT: Oral mucosa moist no icterus Neck: Supple no thyromegaly nodular mass or JVD Chest: Clear to auscultation anteriorly Heart: Regular rate and rhythm S1-S2 heard no S3-S4 Abdomen: Soft nontender no suprapubic masses no organomegaly Extremity: chronic 2+ edema both lower extremity Psych: No evidence of any agitation and aggression noted Derm: No petechial rash Assessment and plan: acute kidney injury currently renal function is stable patient is prone to worsening of renal failure in future due to very poor ejection fraction Patient is stable from renal standpoint given that he does have severe cardiomyopathy and have educated the patient to monitor his daily weight keep a track to make sure his weight is going down He is also going to check his blood pressure twice a day every day he will need to see his roll out manager as well as primary care physician next week As far as diuresis is concerned he can be discharged on 50 mg of torsemide along with 25 mg of Aldactone once a day Basic metabolic profile should be obtained next week Must maintain a fluid restriction of 1000 mL per day, sodium restriction less than 2 g per day Patient has been very poorly compliant with his diet and lifestyle which has been a serious issue he is aware of this and will follow up with his roll out manager Plan was also discussed with hospital medicine service Recurrent right pleural effusion, must follow up with his primary care physician All renal related issues were discussed with the patient, patient does exhibit good understanding, lab results were also discussed with patient in simple Mong[place]ian Prognosis: Guarded We'll continue to follow and make recommendation from renal standpoint Objective - Vital Signs Vital signs: Vital Signs - 12hr 08/15/19 08/15/19 08/15/19 00:08 00:09 04:58 Temperature 98.9 F Pulse Rate 68 73 Respiratory 18 20 Rate Blood Pressure 96/58 90/52 O2 Sat by Pulse 98 97 Oximetry 08/15/19 08/15/19 08/15/19 05:01 08:40 08:58 Temperature 98.4 F 97.5 F L Pulse Rate 81 80 Respiratory 18 Rate Blood Pressure 116/75 O2 Sat by Pulse 95 Oximetry 08/15/19 09:17 Temperature Pulse Rate Respiratory Rate Blood Pressure O2 Sat by Pulse 97 Oximetry - Lab 08/15/19 06:52 08/15/19 06:52 Most recent lab results Calcium 8.9 mg/dL (8.4-10.2) 08/15/19 06:52 Magnesium 2.30 mg/dL (1.7-2.3) 08/13/19 05:05 Medications & Allergies - Medications Allergies/Adverse Reactions: Allergies Penicillins Allergy (Verified 03/05/19 22:41) Itching strawberry Allergy (Verified 03/05/19 22:41) Hives Home Medications: Home Medications Medication Instructions Recorded Confirmed Last Taken Type Colchicine 0.6 mg PO QDAY #10 capsule 07/24/19 08/02/19 Unknown Rx Docusate Sodium [Colace CAP] 100 mg PO BID capsule 07/24/19 08/02/19 Unknown Rx Nicotine [Habitrol] 14 mg TD QDAY #30 patch 07/24/19 08/02/19 Unknown Rx Oxycodone HCl/Acetaminophen 1 each PO Q6HR PRN #20 tablet 07/24/19 08/02/19 Unknown Rx [Percocet 10/325 mg] Sodium Bicarbonate 1,300 mg PO BID #90 tablet 07/24/19 08/02/19 Unknown Rx guaiFENesin ER [Mucinex ER] 600 mg PO BID #60 tablet 07/24/19 08/02/19 Unknown Rx Apixaban [Eliquis] 1 tab PO BID #60 tablet 08/15/19 Unknown Rx Aspirin [Aspirin BABY CHEW TAB] 81 mg PO QDAY #30 tab.chew 08/15/19 Unknown Rx AtorvaSTATin [Lipitor] 40 mg PO QHS #30 tablet 08/15/19 Unknown Rx Digoxin [Lanoxin] 0.25 mg PO Q48H #30 tablet 08/15/19 Unknown Rx Metoprolol [Lopressor TAB] 75 mg PO TID #90 tablet 08/15/19 Unknown Rx Spironolactone [Aldactone] 25 mg PO QDAY #30 tablet 12/15/19 Unknown Rx Spironolactone [Aldactone] 50 mg PO QDAY #30 tablet 08/15/19 Unknown Rx Active Medications: Generic Name Dose Route Start Last Admin Trade Name Freq PRN Reason Stop Dose Admin Acetaminophen 650 mg 08/06/19 12:38 08/13/19 21:40 Tylenol PO 650 mg Q4H PRN Administration Pain MILD(1-3)/Fever >100.5/TRUJILLO Apixaban 5 mg 08/02/19 10:00 08/15/19 09:27 Eliquis PO 5 mg BID SOUMYA Administration Protocol Aspirin 81 mg 08/02/19 10:00 08/15/19 09:27 Baby Aspirin PO 81 mg QDAY SOUMYA Administration Atorvastatin Calcium 40 mg 08/02/19 22:00 08/14/19 22:45 Lipitor PO 40 mg QHS SOUMYA Administration Cephalexin 500 mg 08/10/19 17:00 08/15/19 05:38 Keflex PO 500 mg Q8HR SOUMYA Administration Digoxin 0.25 mg 08/04/19 17:00 08/14/19 18:07 Lanoxin PO 0.25 mg Q48H SOUMYA Administration Docusate Sodium 100 mg 08/02/19 10:00 08/15/19 09:27 Colace PO 100 mg BID SOUMYA Administration Famotidine 20 mg 08/02/19 10:00 08/15/19 09:27 Pepcid PO 20 mg BID SOUMYA Administration Furosemide 80 mg 08/09/19 18:00 08/15/19 09:28 Lasix IV 80 mg 0900,1800 SOUMYA Administration Hydromorphone HCl 1 mg 08/12/19 16:11 08/15/19 06:37 Dilaudid IV 1 mg Q4H PRN Administration Pain , Severe (7-10) Dobutamine HCl/Dextrose 500 mg in 250 mls @ 14.76 mls/hr 08/14/19 10:00 08/15/19 09:29 Dobutrex Drip 500mg/D5w 250ml IV 5 mcg/kg/min TITR SOUYMA 14.76 mls/hr Administration 5 MCG/KG/MIN Insulin Human Lispro 0 unit 08/02/19 07:30 08/15/19 07:44 Humalog SUB-Q Not Given ACHS SOUMYA Protocol Metoclopramide HCl 10 mg 08/02/19 04:12 Reglan IV Q6H PRN Nausea And Vomiting Metoprolol Tartrate 50 mg 08/02/19 08:00 08/15/19 09:27 Metoprolol PO 50 mg TID SOUMYA Administration Metoprolol Tartrate 25 mg 08/02/19 08:00 08/15/19 09:27 Metoprolol PO 25 mg TID SOUMYA Administration Nicotine 14 mg 08/02/19 10:00 08/15/19 09:28 Habitrol TD Not Given QDAY SOUMYA Ondansetron HCl 4 mg 08/02/19 04:12 Zofran IV Q8H PRN Nausea And Vomiting Oxycodone HCl 5 mg 08/02/19 04:18 08/15/19 09:29 Roxicodone PO 5 mg Q6H PRN Administration Pain, (7-10) Oxycodone/Acetaminophen 1 tab 08/02/19 04:09 08/15/19 09:28 Percocet 5/325 PO 1 tab Q6H PRN Administration Pain , Severe (7-10) Sodium Chloride 10 ml 08/02/19 04:12 08/11/19 03:43 Sodium Chloride Flush Syringe 10 Ml IV 10 ml PRN PRN Administration LINE FLUSH Sodium Chloride 10 ml 08/02/19 10:00 08/15/19 09:28 Sodium Chloride Flush Syringe 10 Ml IV 10 ml BID SOUMYA Administration
== END 2019-08-15 12:00 | disposition home or self-care (01) | DRG 559 ==
LOC: ED 17:53 → 4A 21:45 → CC1 08-02 16:46 → 4A 08-03 16:50
PROVIDERS: ADMIT Internal Medicine; ATTEND Internal Medicine
PROC: 0W993ZZ Drainage of Right Pleural Cavity, Percutaneous Approach (ICD-10-PCS; principal; 2019-08-02)
PROC: 4B02XTZ Measurement of Cardiac Defibrillator, External Approach (ICD-10-PCS; 2019-08-03)
PROC: 0W9930Z Drainage of Right Pleural Cavity with Drainage Device, Percutaneous Approach (ICD-10-PCS; 2019-08-05)
PROC: 5A09357 Assistance with Respiratory Ventilation, Less than 24 Consecutive Hours, Continuous Positive Airway Pressure (ICD-10-PCS; 2019-08-05)
PROC: 5A09357 Assistance with Respiratory Ventilation, Less than 24 Consecutive Hours, Continuous Positive Airway Pressure (ICD-10-PCS; 2019-08-06)
PROC: 5A09357 Assistance with Respiratory Ventilation, Less than 24 Consecutive Hours, Continuous Positive Airway Pressure (ICD-10-PCS; 2019-08-07)
PROC: 5A09357 Assistance with Respiratory Ventilation, Less than 24 Consecutive Hours, Continuous Positive Airway Pressure (ICD-10-PCS; 2019-08-08)
PROC: 4A033R1 Measurement of Arterial Saturation, Peripheral, Percutaneous Approach (ICD-10-PCS; 2019-08-10)
PROC: 5A09357 Assistance with Respiratory Ventilation, Less than 24 Consecutive Hours, Continuous Positive Airway Pressure (ICD-10-PCS; 2019-08-10)
PROC: 5A09357 Assistance with Respiratory Ventilation, Less than 24 Consecutive Hours, Continuous Positive Airway Pressure (ICD-10-PCS; 2019-08-11)
PROC: 0WP9X0Z Removal of Drainage Device from Right Pleural Cavity, External Approach (ICD-10-PCS; 2019-08-13)
DX: T84.623A Infection and inflammatory reaction due to internal fixation device of left tibia, initial encounter (principal); N17.0 Acute kidney failure with tubular necrosis; J96.21 Acute and chronic respiratory failure with hypoxia; I50.23 Acute on chronic systolic (congestive) heart failure; I13.0 Hypertensive heart and chronic kidney disease with heart failure and stage 1 through stage 4 chronic kidney disease, or unspecified chronic kidney disease; L97.329 Non-pressure chronic ulcer of left ankle with unspecified severity; E11.22 Type 2 diabetes mellitus with diabetic chronic kidney disease; I42.9 Cardiomyopathy, unspecified; F17.210 Nicotine dependence, cigarettes, uncomplicated; G89.29 Other chronic pain; E11.40 Type 2 diabetes mellitus with diabetic neuropathy, unspecified; M86.672 Other chronic osteomyelitis, left ankle and foot; Y83.8 Other surgical procedures as the cause of abnormal reaction of the patient, or of later complication, without mention of misadventure at the time of the procedure; J91.8 Pleural effusion in other conditions classified elsewhere; J44.9 Chronic obstructive pulmonary disease, unspecified; I48.0 Paroxysmal atrial fibrillation; B95.61 Methicillin susceptible Staphylococcus aureus infection as the cause of diseases classified elsewhere; N18.3 Chronic kidney disease, stage 3 (moderate); Z82.49 Family history of ischemic heart disease and other diseases of the circulatory system; Z95.810 Presence of automatic (implantable) cardiac defibrillator; Z88.0 Allergy status to penicillin; Z91.018 Allergy to other foods; Z79.82 Long term (current) use of aspirin; Z79.899 Other long term (current) drug therapy; Z79.01 Long term (current) use of anticoagulants; Z91.19 Patient's noncompliance with other medical treatment and regimen; Z83.3 Family history of diabetes mellitus; I69.354 Hemiplegia and hemiparesis following cerebral infarction affecting left non-dominant side; Y92.89 Other specified places as the place of occurrence of the external cause; T82.111A Breakdown (mechanical) of cardiac pulse generator (battery), initial encounter; Z71.6 Tobacco abuse counseling; Z79.84 Long term (current) use of oral hypoglycemic drugs
CPT/HCPCS: 32555; 32557; 36415; 36600; 71045; 71046; 78315; 80048; 80053; 80061; 80076; 80162; 82150; 82803; 82947; 82962; 83036; 83605; 83615; 83735; 83880; 84132; 84160; 84478; 84484; 85007; 85025; 85027; 85610; 85652; 85730; 86140; 87076; 87102; 87116; 87186; 88112; 88312; 89051; 90686; 90732; 93005; 93010; 94660; 94760; 99406; G0378; A9270-GY; A9503; C1729; J0690; J1170; J1205; J1250; J1644; J1815; J1940; J1956; J2250; J2270; J2405; J3010; J3370; J7040; J7050; J7512